=== PATIENT | female | born 1935 | race Caucasian/White ===

== ENCOUNTER → 2020-06-04 12:05 | Outpatient (CLI) | payer MEDICARE, SELFPAY ==
--- NOTE | 2020-06-04 12:12 | VDLE_ITS ---
Reason For Study: pain Procedure LEFT This is a venous duplex using B-mode, color GSV is normal. flow and spectral Doppler. CFV is compressible, spontaneous, phasic, Exam performed in department. competent, and demonstrates normal The exam was abbreviated due to the COVID 19 augmentation. protocol. FV is compressible, spontaneous, phasic, The exam was diagnostic. competent and demonstrates normal A preliminary report was called and/or faxed augmentation. to Dr. Lucas. POP V is compressible, spontaneous, phasic, competent and demonstrates normal augmentation. T/P Trunk is compressible. PTV is compressible. LT PerV is compressible. Interpretation Summary There is no evidence of left lower extremity deep vein thrombosis. Left great saphenous vein appears patent and compressible segmentally. Covid 19 protocol Ordering Physician: Ramandeep Lucas Performed By: Ciro Khanna RVT
== END ==
PROVIDERS: PCP Internal Medicine; Visit Provider Internal Medicine
DX: M79.605 Pain in left leg (principal); M79.89 Other specified soft tissue disorders
CPT/HCPCS: 93971

== ENCOUNTER 2021-11-24 11:31 | Emergency (ER) | payer MEDICARE, SELFPAY ==
[2021-11-24 11:33] VITALS: BP 140/91; PULSE 81; RESP 16; TEMP 36.9; O2SAT 100; BMI 25.0
[2021-11-24 11:43] VITALS: BP 175/93; PULSE 86
--- NOTE | 2021-11-24 12:10 | EX.ED.VIS.HA ---
HPI History of Present Illness Chief Complaint: Headache Informant: patient Onset/Context/Timing Onset: Today Context: Gradual Timing: Continuous Quality -Headache: Positive for Dull Location: Top of head, and occiput Worsened by: Nothing Relieved by: Aleve (slightly) Associated Symptoms/Injury Associated Symptoms: Positive for Blurred Vision; Negative for Fever, Nausea, Vomiting, Sore Throat, Sinus Pressure, Numbness, Tingling, Preceding Aura, Photophobia or Visual Loss Narrative Narrative: Patient presents with headache that began today. Patient states she woke up in the middle the night with a headache. Patient states she checked her blood pressure at home and it was elevated. Patient states it was 171/96 initially. Patient states that she checked it later and it was 180/111. Patient describes her pain as dull. Patient states it is over the top of her head and into the occiput. Patient states it radiates into her neck. Patient states she took Aleve earlier this morning and thinks it might of helped. Patient does admit to some blurred vision. Patient denies any nausea or vomiting. Patient denies any chest pain or shortness of breath. Patient denies any photophobia. [facility] Medical History (Updated 11/24/21 @ 13:[address] Daniel Wheeler DO) History of peripheral edema Home Medications amlodipine 2.5 mg tablet (Norvasc) 2.5 mg PO DAILY #10 tabs 11/24/21 [Rx Last Taken Unknown] estradiol 1 mg tablet 0.5 mg PO DAILY 11/24/21 [History Last Taken Unknown] furosemide 20 mg tablet 20 mg PO QODAY 11/24/21 [History Last Taken Unknown] gabapentin 100 mg capsule 100 mg PO QHS 11/24/21 [History Last Taken Unknown] nortriptyline 50 mg capsule 50 mg PO QHS 11/24/21 [History Last Taken Unknown] pravastatin 40 mg tablet 40 mg PO DAILY 11/24/21 [History Last Taken Unknown] Allergy/AdvReac Type Severity Reaction Status Date / Time No Known Allergies Allergy Verified 11/24/21 11:35 Surgical History Hx of appendectomy Hx of bilateral salpingo-oophorectomy Hx of hysterectomy Social History Smoking Status: Never smoker ROS ROS ED Constitutional Constitutional ED: Denies chills or fever(s) Eyes Eyes: Reports blurry vision; Denies diplopia ENT ENT ED: Denies rhinorrhea or sore throat Cardiovascular Cardiovascular: Denies chest pain or palpitations Respiratory/Chest Respiratory/Chest: Denies cough or dyspnea Gastrointestinal Gastrointestinal: Denies nausea or vomiting Genitourinary Genitourinary ED: Denies dysuria or hematuria Musculoskeletal Musculoskeletal: Reports neck pain; Denies back pain Integumentary Denies abscess or rash Neurologic Neurologic: Reports headache(s); Denies weakness Allergic/Immunologic Allergic/Immunologic ED: Denies mouth swelling or urticaria EXAM Physical Exam Const Vital Signs: 11/24/21 11:33 11/24/21 11:43 11/24/21 12:31 Temperature 98.4 F Temperature Source Temporal Pulse Rate 81 86 71 Respiratory Rate 16 24 H Blood Pressure 140/91 H 175/93 H 154/76 H Blood Pressure Mean 107 120 102 Pulse Ox 100 Oxygen Delivery Method Room Air 11/24/21 13:23 Temperature Temperature Source Pulse Rate 71 Respiratory Rate Blood Pressure 158/78 H Blood Pressure Mean 104 Pulse Ox Oxygen Delivery Method Positive well nourished and well developed General Appearance ED: well developed and NAD HEENT Reports moist mucous membranes Neck supple and no JVD Resp normal respiratory effort and clear to auscultation bilaterally Cardio regular rate, regular rhythm and no murmurs GI normal to inspection, nondistended, normoactive bowel sounds and non-tender Palpation: soft Extremity normal to inspection General Extremety ED: Negative for edema or tenderness General Extremity: Negative for edema Neuro oriented x3, CN's II-XII intact bilaterally and no sensory deficits noted Sensorium / Orientation: alert Motor Exam: strength 5/5 throughout Psych mental status grossly normal Skin no rashes or lesions noted MDM MDM MDM Narrative Medical decision making narrative: CT scan of the brain was obtained. There is no acute intracranial abnormality. There are chronic involutional changes noted. 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 This was interpreted by the radiologist and reviewed by myself. CBC shows a mild anemia with a hemoglobin of 11.2 and hematocrit 36.1. Comprehensive metabolic profile was within normal limits. Patient was ordered a dose of labetalol however, patient's blood pressure improved prior to administration of the labetalol. Patient's blood pressure remained stable. On reevaluation, patient's blood pressure is 158/78. Patient states her headache has improved with improvement of her blood pressure. Patient was given a prescription for low-dose Norvasc. Patient was instructed to follow-up with her primary care physician in 3 to 5 days for reevaluation. Patient understood and was agreeable with the plan. All questions were answered. Lab Data Attestation: I reviewed the patient's lab results. Labs: Laboratory Results - last 24 hr 11/24/21 11/24/21 12:25 12:25 WBC 6.4 RBC 4.29 Hgb 11.2 L Hct 36.1 L MCV 84.1 MCH 26.1 L MCHC 31.0 L RDW Std Deviation 49.0 H RDW Coeff of Sara 15.9 H Plt Count 336 MPV 9.1 Immature Gran % (Auto) 0.500 Neut % (Auto) 65.9 Lymph % (Auto) 24.6 Isabela % (Auto) 6.3 Eos % (Auto) 1.6 Baso % (Auto) 1.1 H Absolute Neuts (auto) 4.2 Absolute Lymphs (auto) 1.57 Nucleated RBC % 0 Sodium 138 Potassium 4.1 Chloride 104 Carbon Dioxide 30.0 Anion Gap 4 L BUN 13 Creatinine 0.82 Estim Creat Clear Calc 40.39 Est GFR (MDRD) Af Amer 86 Est GFR (MDRD) Non-Af 71 BUN/Creatinine Ratio 15.9 Glucose 95 Calcium 9.0 Total Bilirubin 0.30 AST 17 ALT 18 Alkaline Phosphatase 86 Total Protein 7.5 Albumin 3.4 Globulin 4.1 Albumin/Globulin Ratio 0.8 L Radiography Diagnostic Testing: Clinical Impression(s) from Imaging Studies Brain CT 11/24/21 12:14 IMPRESSION: Chronic involutional changes of the brain. 9.4 mm well-defined rounded lucency in the medial aspect of the left occipital lobe suggestive of an old infarct. Electronically Signed: Lucas Mcclelland MD at 12:53 EDT , Discharge Plan Triage Chief Complaint: Headache ED Provider: Daniel Wheeler Dx/Rx/DC Orders Clinical Impression: Headache, Hypertension Instructions: ED Headache Unspecified, ED Hypertension New Begin Treatment Prescriptions: New amlodipine [Norvasc] 2.5 mg tablet 2.5 mg PO DAILY Qty: 10 0RF No Action pravastatin 40 mg tablet 40 mg PO DAILY Label Comments: take 1 tablet by mouth at bedtime estradiol 1 mg tablet 0.5 mg PO DAILY Label Comments: take 1/2 tablet by mouth once daily - MAY INCREASE TO 1 TABLET DAILY IF SYMPTOMS DO NOT IMPROVE furosemide 20 mg tablet 20 mg PO QODAY Label Comments: take 1 tablet by mouth every other day gabapentin 100 mg capsule 100 mg PO QHS Label Comments: take 1 capsule by mouth at bedtime nortriptyline 50 mg capsule 50 mg PO QHS Label Comments: take 1 capsule by mouth once daily at bedtime Primary Care Provider: Ramandeep Lucas Referrals: Ramandeep Lucas MD [Primary Care Provider] - 3-5 Days Disposition Disposition: Home, Self Care
--- NOTE | 2021-11-24 12:14 | CT_ITS ---
STUDY: CT BRAIN WITHOUT CONTRAST REASON FOR EXAM: Female, 86 years old. Headache RADIATION DOSAGE (If Supplied By Facility): CTDIvol = ( 44.99 ) mGy, DLP = ( 762.36 ) mGycm TECHNIQUE: Transaxial CT imaging of the brain was performed without administration of intravenous contrast material. Individualized dose optimization techniques were used for this CT. COMPARISON: No relevant priors. FINDINGS: Normal soft tissue structures. Normal calvarium. There is mild cerebral atrophy with widening of the extra-axial spaces and ventricular dilatation. There are areas of decreased attenuation within the white matter tracts of the supratentorial brain, consistent with microvascular disease changes. Normal basal ganglia and thalami. Normal brainstem. There is a 9.4 mm well-defined rounded lucency in the medial aspect of the left occipital lobe suggestive of old infarct. There is mild cerebellar atrophy. There is no intracranial hemorrhage. There are no findings of an acute ischemic infarction. Atherosclerotic calcification of the cavernous portions of the internal carotid arteries bilaterally. Normal visualized paranasal sinuses. CT/Brain/Head without Contrast IMPRESSION: Chronic involutional changes of the brain. 9.4 mm well-defined rounded lucency in the medial aspect of the left occipital lobe suggestive of an old infarct. Electronically Signed: Lucas Mcclelland MD at 12:53 EDT ,
[2021-11-24 12:31] VITALS: BP 154/76; PULSE 71; RESP 24
[2021-11-24 12:37] LABS: Absolute Lymphocyte Count 1.57 X10^3/uL (0.83-4.51); Absolute Neutrophil Count 4.2 X10^3/uL (2.0-7.7); Basophil# 0.07 X10^3/uL; Basophil% 1.1 % (0-1); Eosinophils% 1.6 % (0-5); Hematocrit 36.1 % (37-47); Hemoglobin 11.2 g/dL (12.0-15.0); Lymphocyte # 1.57 X10^3/ul (0.83-4.51); Lymphocyte % 24.6 % (19-41); Mean Corpuscular Hgb 26.1 pg (27.0-32.0); Mean Corpuscular Volume 84.1 fL (81-99); Mean Platelet Vol. 9.1 fl (6.2-12.0); Monocyte% 6.3 % (0-10); NRBC Flagged by Analyzer 0 % (0-5); Neutrophil # 4.21 X10^3/uL (2.7-7.7); Neutrophil % 65.9 % (47-70); Platelet Count 336 K/mm3 (150-450); RBC Distribution Width CV 15.9 % (11.6-14.6); Red Blood Count 4.29 M/mm3 (4.2-5.4); White Blood Count 6.4 K/mm3 (4.4-11.0)
[2021-11-24 12:49] LABS: ALB/GLOB Ratio 0.8 RATIO (0.9-2.4); AST(SGOT) 17 U/L (15-37); Alanine Aminotransfer ALT/SGPT 18 U/L (13-56); Albumin, Serum 3.4 g/dL (3.2-5.0); Alkaline Phosphatase 86 U/L (45-117); Anion Gap 4 (5-15); BUN 13 mg/dL (7-18); BUN/Creat Ratio 15.9 RATIO (10-20); Chloride 104 mmol/L (98-107); Creatinine, Serum 0.82 mg/dL (0.55-1.02); EST Glomerular Filtration Rate 71 mL/min (>60); Est Glom Filt Rate - Afr Amer 86 mL/min (>60); Estimated Creatinine Clearance 40.39 ml/min; Globulin 4.1 g/dL (2.2-4.2); Glucose 95 mg/dL (74-106); Potassium 4.1 mmol/L (3.5-5.1); Protein, Total 7.5 g/dL (6.4-8.2); Sodium Level 138 mmol/L (136-145)
[2021-11-24 13:23] VITALS: BP 158/78; PULSE 71
[2021-11-24 13:47] VITALS: BP 160/73; PULSE 71
== END 2021-11-24 13:54 | disposition home or self-care (01) ==
PROVIDERS: Emergency Provider Emergency Medicine; PCP Internal Medicine; Visit Provider Emergency Medicine
DX: R51.9 Headache, unspecified (principal); D64.9 Anemia, unspecified; I10 Essential (primary) hypertension
CPT/HCPCS: 70450; 80053; 85025; 99284

== ENCOUNTER 2024-09-28 20:33 | Emergency (ER) | payer MEDICARE, SELFPAY ==
[2024-09-28 20:35] VITALS: BP 155/66; PULSE 82; RESP 18; TEMP 37; O2SAT 100
[2024-09-28 20:54] VITALS: BMI 24.3
--- OUTSIDE RECORDS SUMMARY | 2024-09-28 21:10 | XMS RPT_ITS | CCD ---
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 Name Role Phone Ramandeep Alvarez MD Primary Care Provider [phone] FANNING, LOY A Referring Unavailable GANTA, RAMANDEEP Primary Care Unavailable PROVIDER, UNKNOWN Referring Unavailable GANTA, RAMANDEEP Primary Care Unavailable Atifta Ramandeep DURBIN Primary Care Provider [phone] Kinjal Carlton PA-C Unavailable Older BELLMAN.SANTO, Breanna Unavailable Molly Rudolph PA-C Unavailable [phone] GANTA, RAMANDEEP Primary Care Unavailable FANNING, LOY A Referring Unavailable GANTA, RAMANDEEP Primary Care Unavailable BHARATHI CHAVEZA Referring Unavailable GANTA, RAMANDEEP Primary Care Unavailable ANGÉLICA PULIDO Referring Unavailable GANTA, RAMANDEEP Attending Unavailable GANTA, RAMANDEEP Primary Care Unavailable FANNING, LOY A Referring Unavailable GANTA, RAMANDEEP Primary Care Unavailable FANNING, LOY A Attending Unavailable FANNING, LOY A Admitting Unavailable GANTA, RAMANDEEP Primary Care Unavailable GANTA, RAMANDEEP Attending Unavailable GANTA, RAMANDEEP Primary Care Unavailable ELIZABETH SMITH Referring Unavailable GANTA, RAMANDEEP Primary Care Unavailable Riley Gregory Attending Unavailable GANTA, RAMANDEEP Primary Care Unavailable MASCILANEY Referring Unavailable SUSAN CARRERO Attending Unavailable GANTA, RAMANDEEP Primary Care Unavailable MASCLANEY Flores Referring Unavailable MASCLANEY Flores Attending Unavailable GANTA, RAMANDEEP Primary Care Unavailable FANNING, LOY A Attending Unavailable GANTA, RAMANDEEP Primary Care Unavailable CHANEL PASCUAL Referring Unavailable GANTA, RAMANDEEP Primary Care Unavailable GANTA, RAMANDEEP Primary Care Unavailable ELIZABETH SMITH Referring Unavailable GANTA, RAMANDEEP Primary Care Unavailable MO MEDINA Referring Unavailable GANTA, RAAMNDEEP Primary Care Unavailable MASCI, LANEY A Referring Unavailable GANTA, RAMANDEEP Primary Care Unavailable FANNING, LOY A Referring Unavailable MASCI, LANEY A Attending Unavailable GANTA, RAMANDEEP Primary Care Unavailable FANNING, LOY A Referring Unavailable JILLIAN DELGADO Attending Unavailable GANTA, RAMANDEEP Primary Care Unavailable SABA, KISHA A Referring Unavailable GANTA, RAMANDEEP Primary Care Unavailable CARRERO, SUSAN Referring Unavailable GANTA, RAMANDEEP Primary Care Unavailable MASCI, LANEY A Referring Unavailable GANTA, RAMANDEEP Primary Care Unavailable MASCI, LANEY A Referring Unavailable GANTA, RAMANDEEP Primary Care Unavailable SELF Referring Unavailable FANNING, LOY A Attending Unavailable GANTA, RAMANDEEP Primary Care Unavailable PULIDO, ANGÉLICA Referring Unavailable GANTA, RAMANDEEP Primary Care Unavailable PULIDO, ANGÉLICA Attending Unavailable GANTA, RAMANDEEP Primary Care Unavailable PULIDO, ANGÉLICA Referring Unavailable FANNING, LOY A Attending Unavailable GANTA, RAMANDEEP Primary Care Unavailable PULIDO, ANGÉLICA Referring Unavailable Kinjal Carlton PA-C Unavailable [phone] Molly Rudolph PA-C Unavailable Allergies Allergy Classification Reported Allergen(s) Allergy Type Date of Onset Reaction(s) Facility Acetaminophen / HYDROcodone (1 source) Acetaminophen / HYDROcodone Drug Allergy 04-27-2009 [facility] Work Phone: (20 sources) Acetaminophen / HYDROcodone; Translations: [HYDROCODONE-ACETA MINOPHEN] Drug Allergy 04-27-2009 [facility] Work Phone: Medications Current Medications Medication Drug Class(es) Dates Sig (Normalized) Sig (Original) >Zippered Compression Knee High 30-40 mm custom (20 sources) Start: 09-21-2018 >Zippered Compression Knee High 30-40 mm custom CUSTOM MEASURE FOR KNEE HIGH HO COMPRESSION STOCKINGS, 30-40 MM, WITH ZIPPERS PLEASE. IF UNABLE, PLEASE REFER TO [facility]. DX: EDEMA 1 Each 09/21/2018 Active Start: 09-21-2018 >Zippered Comp ression Knee High 30-40 mm custom CUSTOM MEASURE FOR KNEE HIGH HO COMPRESSION STOCKINGS, 30-40 MM, WITH ZIPPERS PLEASE. IF UNABLE, PLEASE REFER TO [facility]. DX: EDEMA 1 Each 0 09/21/2018 Active Comment on above: CUSTOM MEASURE FOR Aris PERALTA HIGH HO COMPRESSION STOCKINGS, 30-40 MM, WITH ZIPPERS PLEASE. IF UNABLE, PLEASE REFER TO [facility]. DX: EDEMA acetaminophen 325 mg / HYDROcodone bitartrate 5 mg oral tablet (2 sources) Opioid Agonist Start: 12-18-19 End: 12-21-19 take 1 tablet by mouth every eight hours as needed for pain HYDROcodone-acetam inophen (NORCO) 5-325 mg per tablet Indications: Post-op pain Take 1 tablet by mouth every 8 hours as needed for pain for up to 3 days. 5 tablet 12/18/2023 12/21/2023 Active amLODIPine 2.5 mg oral tablet (20 sources) Dihydropyridine Calcium Channel Raymundo Start: 11-29-19 take 1 tablet by mouth once daily amLODIPine (NORVASC) 2.5 mg tablet Take 1 tablet by mouth once daily. 90 tablet 3 11/29/2023 Active Start: 11-30-2021 End: 11-25-2023 take 1 tablet by mouth once daily amLODIPine (NORVASC) 2.5 mg tablet Take 1 tablet by mouth once daily. 90 tablet 3 08/24/2022 11/25/2023 Discontinued Comment on above: Take 1 tablet by andrzej once daily. anastrozole 1 mg oral tablet (13 sources) Aromatase Inhibitor Start: take 1 tablet by mouth once daily anastrozole (ARIMIDEX) 1 mg tablet Take 1 tablet by mouth once daily. 90 tablet 3 01/02/2024 Active aspirin 81 mg oral tablet (20 sources) Platelet Aggregation Inhibitor, Nonsteroidal Anti-inflammatory Drug take 1 tablet by mouth once daily Aspirin 81 mg Tab Take 81 mg by mouth once daily. Active Comment on above: Take 81 mg by mouth once daily. Calcium (20 sources) Phosphate Binder, Calcium Start: CALCIUM 500 MG TAB Take 1500mg daily when she remebers 0 0 09/24/2008 Active Comment on above: Take 1500mg daily wh en she remebers cephalexin 500 mg oral capsule (3 sources) Cephalosporin Antibacterial Start: End: take 1 capsule by mouth three times daily cephALEXin (KEFLEX) 500 mg capsule Take 1 capsule by mouth three times a day for 10 days. 30 capsule 12/18/2023 12/28/2023 Active cholecalciferol 0.05 mg oral tablet (20 sources) Vitamin D cholecalciferol (VITAMIN D3) 50 mcg (2,000 unit) tablet Take by mouth once daily. Active Comment on above: Take by mouth once d aily. ferrous sulfate 325 mg oral tablet (6 sources) Start: End: take 1 tablet by mouth every other day ferrous sulfate 325 mg (65 mg iron) tablet Take 1 tablet by mouth every other day. 30 tablet 0 08/10/2023 09/09/2023 Active furosemide 20 mg oral tablet (20 sources) Loop Diuretic Start: End: take 1 tablet by mouth every other day furosemide (LASIX) 20 mg tablet Indications: Diastolic dysfunction take 1 tablet by mouth every other day 45 tablet 3 09/30/2022 Active Start: 04-09-2021 take 1 tablet by andrzej th every other day furosemide (LASIX) 20 mg tablet Indications: Diastolic dysfunction Take 1 tablet by mouth every other day. 45 tablet 0 04/09/2021 Active Comment on above: Take 1 tablet by andrzej th every other day. take 1 tablet by andrzej th every other day gabapentin 100 mg oral capsule (20 sources) Anti-epileptic Agent Start: 08-26-2024 End: 02-22-2025 take 1 capsule by mouth once daily at bedtime gabapentin (NEURONTIN) 100 mg capsule Indications: Post herpetic neuralgia Take 1 capsule by mouth daily at bedtime for 180 days. 90 capsule 1 08/26/2024 02/22/2025 Active Start: 12-11-2020 End: 08-23-2024 take 1 capsule by mouth once daily at bedtime gabapentin (NEURONTIN) 100 mg capsule Indications: Post herpetic neuralgia Take 1 capsule by mouth daily at bedtime for 180 days. 90 capsule 1 07/21/2023 02/05/2024 Discontinued Comment on above: Take 1 capsule by mo uth daily at bedtime. Take 1 capsule by mo uth daily at bedtime for 180 days. losartan potassium 25 mg oral tablet (20 sources) Angiotensin 2 Receptor Raymundo Start: 11-29-2023 take 1 tablet by mouth once daily losartan (COZAAR) 25 mg tablet Take 1 tablet by mouth once daily. 90 tablet 3 11/29/2023 Active Start: 12-27-2021 End: 11-25-2023 take 1 tablet by mouth once daily losartan (COZAAR) 25 mg tablet Take 1 tablet by mouth once daily. 90 tablet 3 01/05/2023 11/25/2023 Discontinued Start: 11-30-2021 take 1 tablet by andrzej th once daily losartan (COZAAR) 25 mg tablet Take 1 tablet by mouth once daily. 30 tablet 5 11/30/2021 Active Comment on above: Take 1 tablet by andrzej th once daily. take 1 tablet by andrzej th once daily methylPREDNISolone (6 sources) Corticosteroid Start: 12-11-2023 End: 12-17-2023 methylPREDNISolone (MEDROL, KELIN,) 4 mg Dose-Pack Follow dosing instructions, take with food. 21 tablet 12/11/2023 12/17/2023 Active Start: 07-08-2022 End: 07-14-2022 methylPREDNISolone (MEDROL, KELIN,) 4 mg Dose-Pack Follow dosing instructions, take with food. 21 tablet 07/08/2022 07/14/2022 Start: 07-08-2022 End: 07-14-2022 methylPREDNISolone (MEDROL, KELIN,) 4 mg Dose-Pack Follow dosing instructions, take with food. 21 tablet 0 07/08/2022 07/14/2022 Active Comment on above: Follow dosing instru ctions, take with food. multivitamin tablet (20 sources) Start: 07-03-19 16 take 1 tablet by mouth once daily multivitamin tablet Take 1 tablet by mouth once daily. 0 07/03/2015 Active Comment on above: Take 1 tablet by andrzej th once daily. nortriptyline 50 mg oral capsule (20 sources) Tricyclic Antidepressant Start: 11-29-19 24 take 1 capsule by mouth once daily at bedtime nortriptyline (PAMELOR) 50 mg capsule Indications: Insomnia, unspecified type TAKE ONE CAPSULE BY MOUTH EVERY DAY AT BEDTIME 90 capsule 3 11/29/2023 Active Start: 04-09-2021 End: 11-25-2023 take 1 capsule by mouth once daily at bedtime nortriptyline (PAMELOR) 50 mg capsule Indications: Insomnia, unspecified type TAKE ONE CAPSULE BY MOUTH EVERY DAY AT BEDTIME 90 capsule 3 07/11/2023 11/25/2023 Discontinued Comment on above: TAKE ONE CAPSULE BY MOUTH EVERY DAY AT BEDTIME potassium chloride 10 meq extended release oral tablet (20 sources) Start: End: take 1 tablet by mouth once daily at breakfast potassium chloride (K-TAB) 10 mEq tablet Indications: Diastolic dysfunction Take 1 tablet by mouth daily with breakfast. On days she takes lasix 90 tablet 01/05/2023 Active Comment on above: Take 1 tablet by andrzej th daily with breakfast. On days she takes lasix pravastatin sodium 40 mg oral tablet (20 sources) HMG-CoA Reductase Inhibitor Start: take 1 tablet by mouth once daily at bedtime pravastatin (PRAVACHOL) 40 mg tablet Indications: Pure hypercholesterolemia Take 1 tablet by mouth daily at bedtime. 90 tablet 3 11/29/2023 Active Start: 06-04-2020 End: 11-25-2023 take 1 tablet by mouth once daily at bedtime pravastatin (PRAVACHOL) 40 mg tablet Indications: Pure hypercholesterolemia Take 1 tablet by mouth daily at bedtime. 90 tablet 3 07/11/2023 11/25/2023 Discontinued Comment on above: Take 1 tablet by andrzej th daily at bedtime. triamcinolone acetonide 1 mg/ml topical cream (1 source) Corticosteroid Start: End: triamcinolone acetonide (KENALOG) 0.1 % cream Indications: Rash and nonspecific skin eruption Apply 1 application to affected area three times a day for 14 days. Apply to affected area. On hand and neck 15 g 1 09/15/2023 09/29/2023 Active valACYclovir 1000 mg oral tablet (1 source) Herpesvirus Nucleoside Analog DNA Polymerase Inhibitor, Herpes Simplex Virus Nucleoside Analog DNA Polymerase Inhibitor, Herpes Zoster Virus Nucleoside Analog DNA Polymerase Inhibitor Start: End: take 1 tablet by mouth three times daily at mealtime valACYclovir (VALTREX) 1 gram Indications: Feared condition not demonstrated , History of shingles Take 1 tablet by mouth three times daily for 7 days. Take with food 21 tablet 0 09/30/2022 10/07/2022 Active Comment on above: Take 1 tablet by andrzej th three times daily for 7 days. Take with food Completed/Discontinued Medications Medication Drug Class(es) Dates Sig (Normalized) Sig (Original) acetaminophen 325 mg oral tablet (15 sources) Start: 08-22-2024 End: 08-22-2024 take 1 dose by mouth once, then take 4000 mg by mouth once daily 650 mg, ORAL, ONCE, 1 dose, On [facility] 08/22/24 at 1330, No more than 4000 mg of acetaminophen should be given per day (FROM ALL SOURCES) Start: 12-18-2023 End: 12-18-2023 take 1 dose by mouth once 1,000 mg, ORAL, PRE-OP ONCE, 1 dose, On Mon12/18/23 at 0730, Preprocedure take 2 tablets by [facility] every six hours as needed acetaminophen (TYLENOL) 325 mg tablet Take 650 mg by mouth every 6 hours as needed. Active calcium chloride 0.0014 meq/ml / potassium chloride 0.004 meq/ml / sodium chloride 0.103 meq/ml / sodium lactate 0.028 meq/ml injectable solution (2 sources) Start: 12-18-2023 End: 12-19-2023 take 75 mL intravenously every hour 75 mL/hr, INTRAVENOUS, CONTINUOUS, Starting on Mon12/18/23 at 1030, Until Mon12/19/23 at 0303, Recovery or Phase I (only) ciclopirox 80 mg/ml topical solution (10 sources) Start: 03-22-2022 End: 01-05-2023 Ciclopirox (LOPROX) 8 % solution APPLY TO NAILS DAILY AND REMOVE WITH ALCOHOL WEEKLY 03/22/2022 01/05/2023 Discontinued Comment on above: APPLY TO NAILS DAILY AND REMOVE WITH ALCOHOL WEEKLY diphenhydrAMINE (1 source) Histamine-1 Receptor Antagonist Start: 12-18-2023 End: 12-19-2023 12.5 mg, INTRAVENOUS, NEEDED, 1 dose, Starting on Mon12/18/23 at 1029, Until Mon12/19/23 at 0303, itching/rash, Nausea/Vomiting - First Line - Parenteral, Recovery or Phase I (only) efinaconazole 100 mg/ml topical solution (20 sources) Azole Antifungal Start: 05-24-2022 End: 10-19-2023 JUBLIA 10 % gunjan 05/24/2022 10/19/2023 Discontinued (Course of therapy completed) EPINEPHrine 0.005 mg/ml / lidocaine hydrochloride 5 mg/ml injectable solution (3 sources) Antiarrhythmic, alpha-Adrenergi c Agonist, beta-Adrenergic Agonist, Catecholamine, Amide Local Anesthetic Start: 11-20-2023 End: 11-20-2023 INTRADERMAL, X (OR/PROCEDURE) PRN, Starting on Mon11/20/23 at 1400, Until Mon11/20/23 at 1400, Intraprocedure Start: 10-04-2023 End: 10-04-2023 lidocaine 1%-EPINEPHrine 1:1 00,000 injection estradiol 1 mg oral tablet (20 sources) Estrogen Start: 11-24-2021 End: 07-04-2024 take 0.5 mg by mouth once daily estradiol (ESTRACE) 1 mg tablet Take 0.5 mg by mouth once daily. 11/24/2021 07/04/2024 Discontinued Start: 04-09-2021 End: 10-19-2023 estradiol (ESTRACE) 1 mg tab let Indications: Hot flashes Take 1 tablet by mouth once daily. Begin with half a pill, if symptoms dont get better take 1 pill 90 tablet 3 06/18/2021 08/23/2022 Discontinued Comment on above: Take 1 tablet by andrzej th once daily. Begin with half a pill, if symptoms dont get better take 1 pill 1 ml fentaNYL 0.05 mg/ml injection (1 source) Opioid Agonist Start: 12-18-2023 End: 12-19-2023 50 mcg, INTRAVENOUS, EVERY 5 MINUTES NEEDED, 2 doses, Starting on Mon12/18/23 at 1029, Until Mon12/19/23 at 0303, FIRST LINE THERAPY for moderate or severe pain, Hold for respiratory rate less than 14, Recovery or Phase I (only) 0.5 ml HYDROmorphone hydrochloride 1 mg/ml prefilled syringe (1 source) Opioid Agonist Start: 12-18-2023 End: 12-19-2023 0.2 mg, INTRAVENOUS, EVERY 10 MINUTES NEEDED, 4 doses, Starting on Mon12/18/23 at 1029, Until Mon12/19/23 at 0303, SECOND LINE THERAPY for moderate or severe pain, Hold for respiratory rate less than 14 Caution: IV hydromorphone is approximately 8 times MORE POTENT than IV morphine. For example, hydromorphone 1mg IV = morphine 8mg IV, Recovery or Phase I (only) iv contrast (will be provided with radiology test) (11 sources) Start: 11-07-2023 End: 11-08-2023 iv contrast (will be provided with radiology test) Indications: Abnormal MRI, breast MRI LT Breast Bx Inject, intravenously, once for 1 dose. No IV access, insert saline lock prior to the beginning of sedation, infusion, injection of imaging exam. Discontinue saline lock post exam. If Pt has a central line or IVAD, may access for administration according to line specific nursing protocol. Once exam is complete flush line and de-access according to line specific nursing protocol in the MR contrast administration guidelines link 1 Each 0 11/07/2023 11/08/2023 Start: 11-07-2023 End: 11-08-2023 iv contrast (will be provide d with radiology test) Indications: Abnormal MRI, breast MRI LT Breast Bx Inject, intravenously, once for 1 dose. No IV access, insert saline lock prior to the beginning of sedation, infusion, injection of imaging exam. Discontinue saline lock post exam. If Pt has a central line or IVAD, may access for administration according to line specific nursing protocol. Once exam is complete flush line and de-access according to line specific nursing protocol in the MR contrast administration guidelines link 1 Each 0 11/07/2023 11/08/2023 Active Start: 10-12-2023 End: 10-13-2023 iv contrast (will be provide d with radiology test) MRI Breast EMELIA Inject, intravenously, once for 1 dose. No IV access, insert saline lock prior to the beginning of sedation, infusion, injection of imaging exam. Discontinue saline lock post exam. If Pt has a central line or IVAD, may access for administration according to line specific nursing protocol. Once exam is complete flush line and de-access according to line specific nursing protocol in the MR contrast administration guidelines link 1 Each 0 10/12/2023 10/13/2023 Active Start: 07-08-2021 End: 07-09-2021 iv contrast (will be provide d with radiology test) Indications: Back pain, unspecified back location, unspecified back pain laterality, unspecified chronicity , Chest pain, unspecified type , Elevated d-dimer CT Chest PE -Inject, intravenously, once for 1 dose.No IV access, insert saline lock prior to the beginning of sedation, infusion, injection of imaging exam. Discontinue saline lock post exam. If Pt. has a central line or IVAD, may access for administration according to line specific nursing protocol. Once exam is complete flush line and de-access according to line specific nursing protocol in the CT contrast administration guidelines link. 1 Each 0 07/08/2021 07/09/2021 Start: 07-08-2021 End: 07-09-2021 iv contrast (will be provide d with radiology test) Indications: Back pain, unspecified back location, unspecified back pain laterality, unspecified chronicity , Chest pain, unspecified type , Elevated d-dimer CT Chest PE -Inject, intravenously, once for 1 dose.No IV access, insert saline lock prior to the beginning of sedation, infusion, injection of imaging exam. Discontinue saline lock post exam. If Pt. has a central line or IVAD, may access for administration according to line specific nursing protocol. Once exam is complete flush line and de-access according to line specific nursing protocol in the CT contrast administration guidelines link. 1 Each 0 07/08/2021 07/09/2021 Active Comment on above: CT Chest PE -Inject, intravenously, once for 1 dose.No IV access, insert saline lock prior to the beginning of sedation, infusion, injection of imaging exam. Discontinue saline lock post exam. If Pt. has a central line or IVAD, may access for administration according to line specific nursing protocol. Once exam is complete flush line and de-access according to line specific nursing protocol in the CT contrast administration guidelines link. 10 ml lidocaine hydrochloride 10 mg/ml injection (5 sources) Antiarrhythmic, Amide Local Anesthetic Start: 12-13-2023 End: 12-13-2023 SUBCUTANEOUS, X (OR/PROCEDURE) PRN, Starting on Mon12/13/23 at 1337, Until Mon12/13/23 at 1337, Intraprocedure Start: 11-20-2023 End: 11-20-2023 SUBCUTANEOUS, X (OR/PROCEDUR E) PRN, Starting on Mon11/20/23 at 1359, Until Mon11/20/23 at 1359, Intraprocedure Start: 11-06-2023 End: 11-06-2023 lidocaine (PF) 10 mg/mL (1 % ) injection (XYLOCAINE) Start: 10-04-2023 End: 10-04-2023 lidocaine (PF) 10 mg/mL (1 % ) injection (XYLOCAINE) naproxen sodium 220 mg oral tablet (20 sources) Nonsteroidal Anti-inflammatory Drug Start: 09-24-2008 End: 07-04-2024 naproxen sodium(ALEVE 220 MG TAB) Take one(1) tablet twice daily.as necessary 0 0 09/24/2008 07/04/2024 Discontinued (Other) Comment on above: Take one(1) tablet t wice daily.as necessary nystatin 100 unt/mg / triamcinolone acetonide 0.001 mg/mg topical ointment (20 sources) Polyene Antifungal, Corticosteroid Start: 09-15-2023 End: 12-08-2023 nystatin-triamcinol one (MYCOLOG) ointment Indications: Rash and nonspecific skin eruption Apply sparingly to red areas both groins twice daily for irritation/infectio n. 15 g 1 09/15/2023 12/08/2023 Discontinued 2 ml ondansetron 2 mg/ml injection (1 source) Serotonin-3 Receptor Antagonist Start: 12-18-2023 End: 12-18-2023 4 mg, INTRAVENOUS, ONCE, 1 dose, On Mon12/18/23 at 1230, Give IV push over 2 minutes Start: 12-18-2023 End: 12-18-2023 4 mg, INTRAVENOUS, ONCE, 1 d ose, On Mon12/18/23 at 1230, Give IV push over 2 minutes oxyCODONE hydrochloride 5 mg oral tablet (1 source) Opioid Agonist Start: 12-18-2023 End: 12-18-2023 5 mg, ORAL, POST-OP PRN, 1 dose, Starting on Mon12/18/23 at 1029, Until Mon12/18/23 at 1140, Moderate Pain (4-6) - Enteral, Recovery or Phase I (only) zoledronic acid 3 mg in NaCl 0.9% 100 mL (ZOMETA) (1 source) Start: 08-22-2024 End: 08-22-2024 3 mg, INTRAVENOUS, Administer over 15 Minutes, ONCE, 1 dose, On [place] 08/22/24 at 1400, Hazardous Potential Reproductive Risk Drug: Use appropriate PPE. Refrigerate. Exp: (24 HR) Problems Active Problems Problem Classification Problem Date Documented Date Episodic/Chronic Administrative/social admission (1 source) Worried well; Translations: [Person with feared health complaint in whom no diagnosis is made] Episodic Allergic reactions (2 sources) Inflammatory dermatosis; Translations: [Dermatitis, unspecified] Episodic Anxiety disorders (20 sources) Anxiety state; Translations: [Generalized anxiety disorder] 03-13-2018 Chronic Cancer of breast (20 sources) Malignant neoplasm of upper-outer quadrant of female breast; Translations: [Malignant neoplasm of upper-outer quadrant of right female breast] Onset: 10-21-2023 10-12-2023 Chronic Chronic kidney disease (15 sources) Chronic kidney disease stage 3A ; Translations: [Stage 3a chronic kidney disease (HCC)] Onset: 01-09-2024 01-09-2024 Chronic Deficiency and other anemia (20 sources) Iron deficiency anemia; Translations: [Iron deficiency anemia, unspecified] 05-29-2017 Episodic Deficiency and other anemia (1 source) Anemia; Translations: [Anemia, unspecified] 11-08-2023 Episodic Disorders of lipid metabolism (20 sources) Pure hypercholesterolemia; Translations: [Pure hypercholesterolemia, unspecified] Chronic Esophageal disorders (20 sources) Gastroesophageal reflux disease; Translations: [Gastro-esophageal reflux disease without esophagitis] Onset: 05-02-2005 05-02-2005 Chronic Essential hypertension (20 sources) Essential hypertension; Translations: [Essential (primary) hypertension] Onset: 04-14-2022 Chronic Heart valve disorders (15 sources) Aortic stenosis, non-rheumatic ; Translations: [Nonrheumatic aortic (valve) stenosis] Onset: 01-09-2024 01-09-2024 Chronic Nonspecific chest pain (2 sources) Chest pain; Translations: [Chest pain, unspecified] Episodic Other and ill-defined heart disease (18 sources) Diastolic dysfunction; Translations: [Other ill-defined heart diseases] Onset: 01-09-2024 Chronic Other connective tissue disease (20 sources) Pain in limb; Translations: [Pain in unspecified limb] 04-29-2005 Episodic Other connective tissue disease (1 source) Swelling of lower limb; Translations: [Other specified soft tissue disorders] Episodic Other diseases of veins and lymphatics (1 source) Peripheral venous insufficiency; Translations: [Venous insufficiency (chronic) (peripheral)] Episodic Other infections; including parasitic (1 source) History of herpes zoster; Translations: [Personal history of other infectious and parasitic diseases] Episodic Other nervous system disorders (20 sources) Compression injury of nerve; 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, unspecified] Onset: 01-31-2018 01-31-2018 Chronic Other nervous system disorders (1 source) Postoperative pain ; Translations: [Other acute postprocedural pain] 12-18-2023 Episodic Other non-traumatic joint disorders (4 sources) Hip pain; Translations: [Pain in left hip] Episodic Other skin disorders (1 source) Eruption; Translations: [Rash and other nonspecific skin eruption] 09-15-2023 Episodic Kathy-; endo-; and myocarditis; cardiomyopathy (except that caused by tuberculosis or sexually transmitted disease) (18 sources) Heart valve disorder; Translations: [Endocarditis, valve unspecified] Onset: 12-15-2023 12-15-2023 Chronic Peripheral and visceral atherosclerosis (15 sources) Atherosclerosis of aorta; Translations: [Atherosclerosis of aorta] Onset: 01-09-2024 01-09-2024 Chronic Residual codes; unclassified (5 sources) Insomnia; Translations: [Insomnia, unspecified] Episodic Residual codes; unclassified (2 sources) Postmenopausal state; Translations: [Asymptomatic menopausal state] 07-11-2023 Episodic Spondylosis; intervertebral disc disorders; other back problems (2 sources) Backache; Translations: [Dorsalgia, unspecified] Episodic Thyroid disorders (20 sources) Non-toxic multinodular goiter; Translations: [Nontoxic multinodular goiter] Onset: 10-30-2008 10-30-2008 Chronic Past or Other Problems Problem Classification Problem Date Documented Date Episodic/Chronic Abdominal pain (20 sources) Right upper quadrant pain; Translations: [Right upper quadrant pain] Onset: 07-16-2007 07-16-2007 Episodic Biliary tract disease (20 sources) Chronic cholecystitis; Translations: [Chronic cholecystitis] Onset: 08-13-2007 08-13-2007 Episodic Deficiency and other anemia (1 source) Anemia, unspecified; Translations: [Anemia, unspecified type] Onset: 11-08-2023 Episodic Gastritis and duodenitis (20 sources) Gastritis; Translations: [Other gastritis without bleeding] Onset: 07-27-2007 07-27-2007 Episodic Genitourinary symptoms and ill-defined conditions (20 sources) Dysuria; Translations: [Dysuria] Onset: 08-16-2007 Resolved: 06-27-2014 06-27-2014 Episodic Heart valve disorders (20 sources) Heart murmur; Translations: [Cardiac murmur, unspecified] Onset: 08-25-2016 12-08-2023 Episodic Menopausal disorders (20 sources) Menopausal flushing; Translations: [Menopausal and female climacteric states] Onset: 06-21-2011 Resolved: 06-27-2014 06-27-2014 Chronic Nonmalignant breast conditions (8 sources) Breast problem; Translations: [Disorder of breast, unspecified] Onset: 10-27-2023 10-27-2023 Episodic Other and unspecified benign neoplasm (20 sources) Lipoma of skin and subcutaneous tissue (excluding face); Translations: [Benign lipomatous neoplasm of skin and subcutaneous tissue of other sites] Onset: 05-02-2005 05-02-2005 Episodic Other bone disease and musculoskeletal deformities (20 sources) Disorder of skeletal system; Translations: [Disorder of bone, unspecified] Onset: 05-02-2005 01-04-2016 Episodic Other bone disease and musculoskeletal deformities (20 sources) Osteopenia; Translations: [Other specified disorders of bone density and structure, unspecified site] Onset: 05-02-2005 12-08-2023 Episodic Other circulatory disease (20 sources) History of cerebrovascular accident; Translations: [Personal history of transient ischemic attack (TIA), and cerebral infarction without residual deficits] Onset: 12-08-2023 12-08-2023 Episodic Other non-traumatic joint disorders (20 sources) Pain of left hip joint; Translations: [Pain in left hip] Onset: 07-19-2022 Episodic Other screening for suspected conditions (not mental disorders or infectious disease) (20 sources) Patient encounter status; Translations: [Encounter for screening mammogram for malignant neoplasm of breast] Onset: 10-04-2023 Episodic Residual codes; unclassified (20 sources) Flushing; Translations: [Flushing] Onset: 09-21-2018 Episodic Residual codes; unclassified (3 sources) Estrogen receptor positive status [ER+]; Translations: [Malignant neoplasm of upper-outer quadrant of right breast in female, estrogen receptor positive (HCC)] Onset: 10-21-2023 Episodic Urinary tract infections (20 sources) Urinary tract infectious disease; Translations: [Urinary tract infection, site not specified] Resolved: 12-30-2015 12-30-2015 Episodic Viral infection (20 sources) Postherpetic neuralgia; Translations: [Other postherpetic nervous system involvement] Onset: 02-06-2012 Resolved: 06-27-2014 02-06-2012 Episodic Results Test Name Value Interpretation Reference Range Facility Basic metabolic 2000 panelon 08-22-2024 Anion gap [Moles/Vol] 13 mmol/L Normal 8-15 [facility] Comment on above: Order Comment: Speci men Type: BLOOD SPECIMENOrdering Facility: [facility] Address: [address] [place] [address] Performed By: #### 2 4321-2 ####[facility]ENTERWNCLIA [id number] [place] [address] [place] Calcium [Mass/Vol] 10.2 mg/dL Normal 8.5-10.2 [facility] Comment on above: Order Comment: Speci men Type: BLOOD SPECIMENOrdering Facility: [facility] Address: [address] [place] [address] Performed By: #### 2 4321-2 ####[facility] JOSHUA MILLWNCLIA [id number] [place] [address] [place] Chloride [Moles/Vol] 102 mmol/L Normal 98-107 [facility] Comment on above: Order Comment: Speci men Type: BLOOD SPECIMENOrdering Facility: [facility] Address: [address] [place] [address] Performed By: #### 2 4321-2 ####[facility] JOSHUA MILLWNCLIA [id number] [place] [address] [place] CO2 [Moles/Vol] 24 mmol/L Normal 22-30 [facility] Comment on above: Order Comment: Speci men Type: BLOOD SPECIMENOrdering Facility: [facility] Address: [address] [place] [address] Performed By: #### 2 4321-2 ####[facility] [id number] [place] [address] [place] Creatinine [Mass/Vol] 0.86 mg/dL Normal 0.58-0.96 [facility] Comment on above: Order Comment: Speci men Type: BLOOD SPECIMENOrdering Facility: [facility] Address: [address] [place] [address] Performed By: #### 2 4321-2 ####[facility] [id number] [place] [address] [place] Creatinine and Glomerular filtration rate.predicted panel (S/P/Bld) 66 mL/min/1.73m??? Normal >=60 [facility] Comment on above: Order Comment: Speci men Type: BLOOD SPECIMENOrdering Facility: [facility] Address: [address] [place] [address] Result Comment: Analia mated Glomerular Filtration Rate (eGFR) is calculated using the 2020 CKD-EPI creatinine equation. This equation utilizes serum creatinine, sex, and age as parameters. The creatinine assay has traceable calibration to isotope dilution-mass spectrometry. Refer to KDIGO guidelines for clinical interpretation. In patients with unstable renal function, e.g. those with acute kidney injury, the eGFR may not accurately reflect actual GFR. Performed By: #### 2 4321-2 ####[facility] [id number] [place] [address] [place] Glucose [Mass/Vol] 93 mg/dL Normal 74-99 [facility] Comment on above: Order Comment: Speci men Type: BLOOD SPECIMENOrdering Facility: [facility] Address: [address] [place] [address] Result Comment: The [place] [employer] (ADA) provides guidance for cutoff values for fasting glucose and random glucose. The ADA defines fasting as no caloric intake for at least 8 hours. Fasting plasma glucose results between 100 to 125 mg/dL indicate increased risk for diabetes (prediabetes). Fasting plasma glucose results greater than or equal to 126 mg/dL meet the criteria for diagnosis of diabetes. In the absence of unequivocal hyperglycemia, results should be confirmed by repeat testing. In a patient with classic symptoms of hyperglycemia or hyperglycemic crisis, random plasma glucose results greater than or equal to 200 mg/dL meet the criteria for diagnosis of diabetes. Reference: Standards of Medical Care in Diabetes 2016, [place] [employer]. Diabetes Care. 2016.39(Suppl 1). Performed By: #### 2 4321-2 ####[facility] [id number] [place] [address] [place] Potassium [Moles/Vol] 4.8 mmol/L Normal 3.7-5.1 [facility] Comment on above: Order Comment: Speci men Type: BLOOD SPECIMENOrdering Facility: [facility] Address: [address] [place] [address] Performed By: #### 2 4321-2 ####[facility] [id number] [place] [address] [place] Sodium [Moles/Vol] 139 mmol/L Normal 136-144 [facility] Comment on above: Order Comment: Speci men Type: BLOOD SPECIMENOrdering Facility: [facility] Address: [address] [place] [address] Performed By: #### 2 4321-2 ####[facility] [id number] [place] [address] [place] Urea nitrogen [Mass/Vol] 20 mg/dL Normal 7-21 [facility] Comment on above: Order Comment: Speci men Type: BLOOD SPECIMENOrdering Facility: [facility] Address: [address] [place] [address] Performed By: #### 2 4321-2 ####[facility] HOSPITALLIA [id number] [place] [address] [facility] [place] 08-21-2024 SANTON Telephone (RUBI) -------- HILLARYALBERTO Foote ([id number]) 1935 F Date Time Provider Department 08/21/24 OKSANA OLIVIA During your visit today, we recorded the following information about you: Oksana Olivia LISW 08/21/2024 3:34 PM Signed Pt noted on [facility] 1st time treatment report. Pt is noted on report for Zometa injection, no social work follow up indicated. OSBALDO Rudolph-S Allergies As of Date: 08/21/2024 Noted Allergy Reaction VICODIN (HYDROCODONE-ACETAMINOPH E*04/27/2009 5 - Intolerance Date Reviewed: 07/04/2024 Reviewed by: Susan Carrero APRN.BASKET SORTER - Fully Assessed Reason for Visit: Social Work Services [507] Prescriptions as of 08/21/2024 - gabapentin (NEURONTIN) 100 mg capsule Take 1 capsule by mouth daily at bedtime for 180 days. - acetaminophen (TYLENOL) 325 mg tablet Take 650 mg by mouth every 6 hours as needed. - anastrozole (ARIMIDEX) 1 mg tablet Take 1 tablet by mouth once daily. - losartan (COZAAR) 25 mg tablet Take 1 tablet by mouth once daily. - pravastatin (PRAVACHOL) 40 mg tablet Take 1 tablet by mouth daily at bedtime. - amLODIPine (NORVASC) 2.5 mg tablet Take 1 tablet by mouth once daily. - nortriptyline (PAMELOR) 50 mg capsule TAKE ONE CAPSULE BY MOUTH EVERY DAY AT BEDTIME - potassium chloride (K-TAB) 10 mEq tablet Take 1 tablet by mouth daily with breakfast. On days she takes lasix - furosemide (LASIX) 20 mg tablet take 1 tablet by mouth every other day - >Zippered Compression Knee High 30-40 mm custom CUSTOM MEASURE FOR KNEE HIGH HO COMPRESSION STOCKINGS, 30-40 MM, WITH ZIPPERS PLEASE. IF UNABLE, PLEASE REFER TO CHUNG AT [facility]. DX: EDEMA - multivitamin tablet Take 1 tablet by mouth once daily. - Aspirin 81 mg Tab Take 81 mg by mouth once daily. - cholecalciferol (VITAMIN D3) 50 mcg (2,000 unit) tablet Take by mouth once daily. - CALCIUM 500 MG TAB Take 1500mg daily when she remebers Problem List As Of Date 08/21/2024 Noted Resolved PAIN IN LIMB [M79.609] Iron deficiency anemia [D50.9] PURE HYPERCHOLESTEROLEM [E78.00] Anxiety state [F41.1] Urinary tract infection, site not specified [N3* 12/30/2015 Osteopenia [M85.80] 05/02/2005 LIPOMA SKIN NEC [D17.39] 05/02/2005 ESOPHAGEAL REFLUX [K21.9] 05/02/2005 PAIN ABDOMEN( Right Upper Quadrant) [R10.11] 07/16/2007 GASTRITIS ANTRAL( W/O Hemorrhage) [K29.60] 07/27/2007 ACUTE GASTRITIS W/O HEMORRHAGE [K29.00] 07/27/2007 CHOLECYSTITIS SEE ALSO GALLBLADDER CHRONIC [K*08/13/2007 Dysuria [R30.0] 08/16/2007 06/27/2014 MULTINODULAR GOITER (NONTOXIC) [E04.2] 10/30/2008 Hot flash, menopausal [N95.1] 06/21/2011 06/27/2014 PHN (postherpetic neuralgia) [B02.29] 02/06/2012 Postherpetic neuralgia [B02.29] 06/14/2012 06/27/2014 Pinched nerve in neck [G58.9] 01/31/2018 Hot flashes [R23.2] 09/21/2018 Essential hypertension [I10] 04/14/2022 Pain of left hip joint [M25.552] 07/19/2022 Murmur, cardiac [R01.1] 08/25/2016 History of cerebral infarction [Z86.73] 12/08/2023 VHD (valvular heart disease) [I38] 12/15/2023 Malignant neoplasm of right breast in female, e*01/09/2024 Atherosclerosis of aorta (HCC) [I70.0] 01/09/2024 Stage 3a chronic kidney disease (HCC) [N18.31] 01/09/2024 Diastolic dysfunction [I51.89] 01/09/2024 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] 01/09/2024 Encounter Status:Closed by OKSANA OLIVIA on 08/21/24 [facility] [place] 08-05-2024 SANTON Telephone (HEMVINCENT) -------- ALBERTO RODRIGUEZ ([id number]) 1935 F Date Time Provider Department 08/05/24 LANEY IGNACIO During your visit today, we recorded the following information about you: Jaelyn Evans LPN 08/05/2024 1:09 PM Signed Dental clearance form received. Clear from active disease. Scanned into chart. CHIQUITA Ferrer Paul A, DO 08/05/2024 1:20 PM Signed Can schedule BMP/Zometa every 3 months beginning within the next few weeks. DO Patel Yin Brandy 08/05/2024 2:29 PM Signed I called Alberto and asked her to call us back to schedule the below requested. Kimberly Bowen 08/09/2024 2:00 PM Signed Patient called back and scheduled. Chemo start email sent Kimberly Kraus Allergies As of Date: 08/05/2024 Noted Allergy Reaction VICODIN (HYDROCODONE-ACETAMINOPH E*04/27/2009 5 - Intolerance Date Reviewed: 07/04/2024 Reviewed by: Susan Carrero APRN.BASKET SORTER - Fully Assessed Reason for Visit: Dental Clearance - Chemotherapy [1356] Prescriptions as of 08/09/2024 - gabapentin (NEURONTIN) 100 mg capsule Take 1 capsule by mouth daily at bedtime for 180 days. - acetaminophen (TYLENOL) 325 mg tablet Take 650 mg by mouth every 6 hours as needed. - anastrozole (ARIMIDEX) 1 mg tablet Take 1 tablet by mouth once daily. - losartan (COZAAR) 25 mg tablet Take 1 tablet by mouth once daily. - pravastatin (PRAVACHOL) 40 mg tablet Take 1 tablet by mouth daily at bedtime. - amLODIPine (NORVASC) 2.5 mg tablet Take 1 tablet by mouth once daily. - nortriptyline (PAMELOR) 50 mg capsule TAKE ONE CAPSULE BY MOUTH EVERY DAY AT BEDTIME - potassium chloride (K-TAB) 10 mEq tablet Take 1 tablet by mouth daily with breakfast. On days she takes lasix - furosemide (LASIX) 20 mg tablet take 1 tablet by mouth every other day - >Zippered Compression Knee High 30-40 mm custom CUSTOM MEASURE FOR KNEE HIGH HO COMPRESSION STOCKINGS, 30-40 MM, WITH ZIPPERS PLEASE. IF UNABLE, PLEASE REFER TO CHUNG AT [facility]. DX: EDEMA - multivitamin tablet Take 1 tablet by mouth once daily. - Aspirin 81 mg Tab Take 81 mg by mouth once daily. - cholecalciferol (VITAMIN D3) 50 mcg (2,000 unit) tablet Take by mouth once daily. - CALCIUM 500 MG TAB Take 1500mg daily when she remebers Problem List As Of Date 08/05/2024 Noted Resolved PAIN IN LIMB [M79.609] Iron deficiency anemia [D50.9] PURE HYPERCHOLESTEROLEM [E78.00] Anxiety state [F41.1] Urinary tract infection, site not specified [N3* 12/30/2015 Osteopenia [M85.80] 05/02/2005 LIPOMA SKIN NEC [D17.39] 05/02/2005 ESOPHAGEAL REFLUX [K21.9] 05/02/2005 PAIN ABDOMEN( Right Upper Quadrant) [R10.11] 07/16/2007 GASTRITIS ANTRAL( W/O Hemorrhage) [K29.60] 07/27/2007 ACUTE GASTRITIS W/O HEMORRHAGE [K29.00] 07/27/2007 CHOLECYSTITIS SEE ALSO GALLBLADDER CHRONIC [K*08/13/2007 Dysuria [R30.0] 08/16/2007 06/27/2014 MULTINODULAR GOITER (NONTOXIC) [E04.2] 10/30/2008 Hot flash, menopausal [N95.1] 06/21/2011 06/27/2014 PHN (postherpetic neuralgia) [B02.29] 02/06/2012 Postherpetic neuralgia [B02.29] 06/14/2012 06/27/2014 Pinched nerve in neck [G58.9] 01/31/2018 Hot flashes [R23.2] 09/21/2018 Essential hypertension [I10] 04/14/2022 Pain of left hip joint [M25.552] 07/19/2022 Murmur, cardiac [R01.1] 08/25/2016 History of cerebral infarction [Z86.73] 12/08/2023 VHD (valvular heart disease) [I38] 12/15/2023 Malignant neoplasm of right breast in female, e*01/09/2024 Atherosclerosis of aorta (HCC) [I70.0] 01/09/2024 Stage 3a chronic kidney disease (HCC) [N18.31] 01/09/2024 Diastolic dysfunction [I51.89] 01/09/2024 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] 01/09/2024 Encounter Status:Closed by KIMBERLY KRAUS on 08/09/24 [facility] CNOVSPon 07-04-2024 CNOVSP Visit (SP) Office (RUBI) -------- ALBERTO RODRIGUEZ ([id number]) 1935 F Date Time Provider Department 07/04/24 10:00 AM SUSAN CARRERO During your visit today, we recorded the following information about you: Temperature Pulse Blood pressure Weight 98.5 degrees 92/minute 113/65 61.9 kg Susan Carrero APRN.BASKET SORTER 07/04/2024 10:45 AM Signed Chief Complaint Patient presents with: Established Patient HPI: Alberto Rodriguez is a 88 year old female who presents here today for SCP/breast cancer. Per Dr. Ignacio's previous note: H/o Stereotactic right breast biopsy 10/04/2023. Pathology: Right breast, anterior, calcifications, stereotactic-guided core biopsy, with tophat clip placement (A): - Atypical lobular hyperplasia (ALH). - Fibrocystic changes, including usual ductal hyperplasia (UDH), dense stromal fibrosis, cysts, and apocrine metaplasia, and pseudoangiomatous stromal hyperplasia (PASH). - Microcalcifications in non-neoplastic breast epithelium. - Please see Comment I. 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 - Microcalcifications in lobular neoplasia and non-neoplastic breast epithelium.' Positive (greater than 10%) ER % staining 99 Estrogen Receptor (Staining Intensity) Strong Estrogen Receptor Internal Control Present and Stained as Expected Estrogen Receptor External Control Present and Stained as Expected WY status Positive (greater than or equal to 1%) WY % staining 99 Progesterone Receptor (Staining Intensity) Strong Progesterone Receptor Internal Control Present and Stained as Expected Progesterone Receptor External Control Present and Stained as Expected HER2 IHC Status Equivocal for HER2 Overexpression HER2 IHC Score 2+ Tumor Type Primary Invasive Breast Carcinoma Breast Tumor Grade Not Graded INTERPRETATION: NEGATIVE for HER2 (ERBB2) GENE AMPLIFICATION Ultrasound right axilla 10/19/2023 showed no evidence of adenopathy. Multiple various sized nodes were observed but had benign characteristics. MRI breasts 10/23/2023: IMPRESSION: SUSPICIOUS 1. 1.3 cm area of abnormal enhancement in the upper inner left breast, indeterminate for malignancy. Second look ultrasound is recommended to facilitate possible ultrasound guided biopsy. If not seen sonographically, an MRI guided biopsy would be recommended. 2. 3.8 cm area of abnormal combined mass and nonmasslike enhancement with mixed washout and persistent enhancement kinetics in the 8-10:00 right breast, at site of biopsy-proven malignancy. Additional 2.4 cm area of nonmasslike enhancement in the retroareolar right breast with adjacent biopsy marking clip demonstrating atypical lobular hyperplasia; this area remains somewhat suspicious/indeterminate . When including both abnormal areas of enhancement, total abnormal enhancement would span 6.4 cm. Patient has surgical/oncologic follow-up. 3. Marked background parenchymal enhancement limits sensitivity of MRI. 4. No lymphadenopathy. MRI guided biopsy with clip placement of LEFT breast lesion at 11:00 3 cm from the nipple on 11/06/2023. Pathology: FINAL DIAGNOSIS Left breast, 11:00, 3cmfn, 0.9cm x 0.9cm x 0.6cm mass, ultrasound-guided core biopsy, with Q clip placement: - Focal atypical lobular hyperplasia (ALH), columnar cell change, and dense stromal fibrosis. Scheduled for repeat :MRI biopsy with clip placement 11/19. She lives in [place]. . Has close friend. Fully capable of ADLs and IADLs. Cares for home and yard. Has been diagnosed with anemia in the past. Most recent CBC was 2 months ago indicating moderate anemia. Borderline microcytic indexes. Underwent left breast excisional biopsy along with right mastectomy and sentinel lymph node biopsy on 12/18/2023. Pathology: 1. Left breast, oriented excision (A) - Lobular carcinoma in situ (LCIS), classic type. -Biopsy site changes are identified. 2. Right axillary lymph node, excision (B) - One lymph node, negative for metastatic carcinoma (0/1). 3. 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 -Biopsy site changes are identified. -The surrounding breast tissue shows atypical ductal hyperplasia (ADH), fibrocystic changes and microcalcifications. PJM/pjm/12/21/23 Diagnosis Comment CCM Select slides have been reviewed in consultation with Dr. Walters, of the [facility] breast pathology d (more content not included)... Normal [facility] VALERI SCREENING W TOMOon 07-04 VALERI SCREENING W ARMANDO * * *Final Report* * * DATE OF EXAM: Jul 04 2024 11:08AM [id number] - VALERI SCREENING W ARMANDO / PROCEDURE REASON: Atypical lobular hyperplasia (ALH) of left breast * * * * Physician Interpretation * * * * RESULT: [place] [address] #[id number] - [facility] SCREENING W ARMANDO HISTORY: 88 year-old patient seen for screening. Patient is asymptomatic in both breasts. The patient has the following personal history of breast cancer: breast cancer in the right breast in 2023. The patient has a family history of breast cancer. COMPARISON STUDIES: The present examination has been compared to prior imaging studies dated 10/19/2023 (ultrasound), 10/21/2023 (MRI), 11/06/2023 (mammogram), 11/20/2023 (mammogram) and 12/13/2023 (mammogram). MAMMOGRAM TECHNIQUE: The study was acquired using full field digital technology and interpreted from soft copy. Digital Breast Tomosynthesis (DBT) images were obtained and used to assist in the interpretation of this examination. MAMMOGRAM FINDINGS: The breast is heterogeneously dense, which may obscure small masses. No suspicious masses, calcifications or other abnormalities are seen in the left breast. There are no significant interval changes. IMPRESSION: There is no mammographic evidence of malignancy in the left breast. Routine screening mammogram is recommended. Annual mammogram will be due in 1 year. BI-RADS Category 1: Negative Interpreting Radiologist: Mercedes Lim M.D. Electronically signed on: 07/06/2024 Executive Assistant: ALBA Transcribe Date/Time: Jul 04 2024 10:46A Dictated by: MRECEDES LIM MD This examination was interpreted and the report reviewed and electronically signed by: MERCEDES LIM MD on Jul 06 2024 1:58AM EST [id number] Normal [facility] CNCOon 06-26-2024 CNCO Letter Text Normal [facility] CNOVon 04-04-2024 CNOV Office Visit (BRCRBD ) -------- ALBERTO RODRIGUEZ ([id number]) 1935 F Date Time Provider Department 04/04/24 12:30 PM LOY KWON During your visit today, we recorded the following information about you: Loy Kwno MD 04/04/2024 1:00 PM Signed REASON FOR TODAY'S VISIT: Last seen December 2023 at her post op visit Returns today for scheduled interval exam and check She notes no breast related complaints today. No SEs from the anastrozole HISTORY: 12/18/23: RIGHT- SM/SLN and left excisional biopsy RIGHT: pT1bNx ER 99 [place] 99 Her 2 FISH negative LEFT c/w LCIS December 2023 Initiated anastrozole (Masci) Plan to begin Zometa approx June 2024 REVIEW OF SYSTEMS 14 point ROS is negative except for that which is stated above. EXAMINATION: The sensitive examination was discussed with the Patient or Patient's Authorized Salvage Supervisor. As applicable, any other physician, advance practice provider, medical student, or other health professional student that will be observing or involved in the sensitive examination for educational or training purposes was discussed with the Patient or Authorized Salvage Supervisor. The Patient or Authorized Salvage Supervisor has agreed to proceed with the sensitive examination. (Sensitive examination includes inspection and/or palpation of the breasts, pelvis, prostate and anorectal regions) There is no evidence of recurrence on the Right. well healed mastectomy scar no concerning masses left breast: well healed 12o'c excisional biopsy scar no concerning masses There is no lymphadenopathy. BREAST IMAGING: Due for LEFT mammogram July 2024 IMPRESSION./PLAN: new diagnosis of RIGHT breast cancer presenting as suspicious extent of calcifications on July 2023 screen diagnosis eventually made by 2 site stereo biopsy in September cTmic N0 ER/WY 99 Her2 FISH negative the anterior(RA) biopsy: ALH MRI prompted biopsy LEFT c/w ALH 12/18/23: RIGHT- SM/SLN and left excisional biopsy RIGHT: pT1bNx ER 99 W[place] 99 Her 2 FISH negative LEFT c/w LCIS doing well. Tolerating endocrine therapy without issue Normal CBE today She will continue to have her active surveillance and survivorship visits through medical oncology - next visit scheduled with Michele Carrero. Will coordinate her imaging same day if possible She is encouraged to call with any future concerns I spent a total of 25 minutes on the date of the service which included preparing to see the patient, [id number] patient care, completing clinical documentation, obtaining and/or reviewing separately obtained history, performing a medically appropriate examination, counseling and educating the patient/family/caregiver , ordering medications, tests, or procedures, communicating with other HCPs (not separately reported), independently interpreting results (not separately reported), communicating results to the patient/family/caregiver , and care coordination (not separately reported). Loy Kwon MD Referring Provider: SELF [200] Allergies As of Date: 04/04/2024 Noted Allergy Reaction VICODIN (HYDROCODONE-ACETAMINOPH E*04/27/2009 5 - Intolerance Date Reviewed: 04/04/2024 Reviewed by: Nuris Alegria RN - Fully Assessed Reason for Visit: Follow Up [171] Primary Visit Diagnosis:Malignant neoplasm of upper-outer quadrant of right breast in female, estrogen receptor positive (HCC) [C50.411, Z17.0] Prescriptions as of 04/04/2024 - gabapentin (NEURONTIN) 100 mg capsule Take 1 capsule by mouth daily at bedtime for 180 days. - acetaminophen (TYLENOL) 325 mg tablet Take 650 mg by mouth every 6 hours as needed. - anastrozole (ARIMIDEX) 1 mg tablet Take 1 tablet by mouth once daily. - losartan (COZAAR) 25 mg tablet Take 1 tablet by mouth once daily. - pravastatin (PRAVACHOL) 40 mg tablet Take 1 tablet by mouth daily at bedtime. - amLODIPine (NORVASC) 2.5 mg tablet Take 1 tablet by mouth once daily. - nortriptyline (PAMELOR) 50 mg capsule TAKE ONE CAPSULE BY MOUTH EVERY DAY AT BEDTIME - potassium chloride (K-TAB) 10 mEq tablet Take 1 tablet by mouth daily with breakfast. On days she takes lasix - furosemide (LASIX) 20 mg tablet take 1 tablet by mouth every other day - >Zippered Compression Knee High 30-40 mm custom CUSTOM MEASURE FOR KNEE HIGH HO COMPRESSION STOCKINGS, 30-40 MM, WITH ZIPPERS PLEASE. IF UNABLE, PLEASE REFER TO [facility] AT [facility]. DX: EDEMA - multivitamin tablet Take 1 tablet by mouth once daily. - Aspirin 81 mg Tab Take 81 mg by mouth once daily. - cholecalciferol (VITAMIN D3) 50 mcg (2,000 unit) tablet Take by mouth once daily. - CALCIUM 500 MG TAB Take 1500mg daily when she remebers - naproxen sodium(ALEVE 220 MG TAB) Take one(1) tablet twice daily.as necessary Problem List As Of Date 04/04/2024 Noted Resolved PAIN IN LIMB [M79.609] Iron deficiency anemia [D5 (more content not included)... [facility] CNPNon 04-04-2024 CNPN Telephone (STEPHANIEBD) -------- ALBERTO RODRIGUEZ ([id number]) 1935 F Date Time Provider Department 04/04/24 KIMBERLY CHAVEZ BRRIANA During your visit today, we recorded the following information about you: Kimberly Chavez PA-C 04/04/2024 1:11 PM Signed Message left for patient re: mammogram Able to schedule same day as her follow-up with Susan Carrero CNP on 07/04 Kimberly Chavez PA-C April 04, 2024 1:10 PM Allergies As of Date: 04/04/2024 Noted Allergy Reaction VICODIN (HYDROCODONE-ACETAMINOPH E*04/27/2009 5 - Intolerance Date Reviewed: 04/04/2024 Reviewed by: Nuris Alegria, RN - Fully Assessed Reason for Visit: Appointment [186] Prescriptions as of 04/04/2024 - gabapentin (NEURONTIN) 100 mg capsule Take 1 capsule by mouth daily at bedtime for 180 days. - acetaminophen (TYLENOL) 325 mg tablet Take 650 mg by mouth every 6 hours as needed. - anastrozole (ARIMIDEX) 1 mg tablet Take 1 tablet by mouth once daily. - losartan (COZAAR) 25 mg tablet Take 1 tablet by mouth once daily. - pravastatin (PRAVACHOL) 40 mg tablet Take 1 tablet by mouth daily at bedtime. - amLODIPine (NORVASC) 2.5 mg tablet Take 1 tablet by mouth once daily. - nortriptyline (PAMELOR) 50 mg capsule TAKE ONE CAPSULE BY MOUTH EVERY DAY AT BEDTIME - potassium chloride (K-TAB) 10 mEq tablet Take 1 tablet by mouth daily with breakfast. On days she takes lasix - furosemide (LASIX) 20 mg tablet take 1 tablet by mouth every other day - >Zippered Compression Knee High 30-40 mm custom CUSTOM MEASURE FOR KNEE HIGH HO COMPRESSION STOCKINGS, 30-40 MM, WITH ZIPPERS PLEASE. IF UNABLE, PLEASE REFER TO [facility] AT [facility]. DX: EDEMA - multivitamin tablet Take 1 tablet by mouth once daily. - Aspirin 81 mg Tab Take 81 mg by mouth once daily. - cholecalciferol (VITAMIN D3) 50 mcg (2,000 unit) tablet Take by mouth once daily. 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] 05/02/2005 ESOPHAGEAL REFLUX [K21.9] 05/02/2005 PAIN ABDOMEN( Right Upper Quadrant) [R10.11] 07/16/2007 GASTRITIS ANTRAL( W/O Hemorrhage) [K29.60] 07/27/2007 ACUTE GASTRITIS W/O HEMORRHAGE [K29.00] 07/27/2007 CHOLECYSTITIS SEE ALSO GALLBLADDER CHRONIC [K*08/13/2007 Dysuria [R30.0] 08/16/2007 06/27/2014 MULTINODULAR GOITER (NONTOXIC) [E04.2] 10/30/2008 Hot flash, menopausal [N95.1] 06/21/2011 06/27/2014 PHN (postherpetic neuralgia) [B02.29] 02/06/2012 Postherpetic neuralgia [B02.29] 06/14/2012 06/27/2014 Pinched nerve in neck [G58.9] 01/31/2018 Hot flashes [R23.2] 09/21/2018 Essential hypertension [I10] 04/14/2022 Pain of left hip joint [M25.552] 07/19/2022 Murmur, cardiac [R01.1] 08/25/2016 History of cerebral infarction [Z86.73] 12/08/2023 VHD (valvular heart disease) [I38] 12/15/2023 Malignant neoplasm of right breast in female, e*01/09/2024 Atherosclerosis of aorta (HCC) [I70.0] 01/09/2024 Stage 3a chronic kidney disease (HCC) [N18.31] 01/09/2024 Diastolic dysfunction [I51.89] 01/09/2024 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] 01/09/2024 Encounter Status:Closed by KIMBERLY CHAVEZ on 04/04/24 Normal [facility] CNCOon 01-15-2024 CNCO Letter Text Normal [facility] CNOVon 01-09-2024 CNOV Office Visit (INTMWS ) -------- ALBERTO RODRIGUEZ ([id number]) 1935 F Date Time Provider Department 01/09/24 10:00 AM RAMANDEEP ALVAREZ INTMWS During your visit today, we recorded the following information about you: Pulse Respiration Blood pressure Weight 89/minute 16/minute 122/72 59 kg Height 1.524 m Ramandeep Alvarez MD 01/09/2024 12:46 PM Signed Alberto Rodriguez is a 88 year old female here for a Medicare wellness visit. Medicare Health Risk Assessment General Health good Exercise: Minutes/Day 15 to 30 mins Exercise: Days/Week Daily Alcohol: Daily Use No Alcohol: Drinks/Day No Alcohol: 6 or more drinks No Feel off balance No Concerns: Teeth/Dentures No Concerns: Sexual function No Troubled by feelings No Frequency: Eating healthy diet Yes- eats a lot of fruits and vegetables, chicken, beef and shrimp ADLs requiring help No Safety precautions in home/vehicle NO Smoke, vape, chews tobacco No Difficulty hearing NoNo Difficulty seeing Current Providers Specialists: I have reviewed specialist-related care of the patient in the medical record. Medical/Family history review Reviewed and updated problem list, medical/surgical/family/ social history, medications, and allergies. Opioid use review Opioid Medications (last 90 days) 12/18/2023 12/19/2023 03:03 12/21/2023 23:59 Opioid Medications hydrocodone/acetaminophe n Admitted: Dec 17 - Dec 18, 2023 1 tablet q 8 H PRN ORAL 1 tablet q 8 H PRN ORAL -Rx End hydromorphone HCl, hydromorphone HCl/PF 0.2 mg, INTRAVENOUS, EVERY 10 MINUTES NEEDED, 4 doses, Starting on Mon12/18/23 at 1029, Until Mon12/19/23 at 0303, SECOND LINE THERAPY for moderate or severe pain Hold for respiratory rate less than 14 Caution: IV hydromorphone is approximately 8 times MORE POTENT than IV morphine. For example, hydromorphone 1mg IV = morphine 8mg IV Recovery or Phase I (only) 0.2 mg, INTRAVENOUS, EVERY 10 MINUTES NEEDED, 4 doses, Starting on Mon12/18/23 at 1029, Until Mon12/19/23 at 0303, SECOND LINE THERAPY for moderate or severe pain Hold for respiratory rate less than 14 Caution: IV hydromorphone is approximately 8 times MORE POTENT than IV morphine. For example, hydromorphone 1mg IV = morphine 8mg IV Recovery or Phase I (only)-Discontinued (AUTO DC AT D) hydromorphone HCl INTRAVENOUS, NEEDED, Starting on Mon12/18/23 at 0950, Until Mon12/18/23 at 1016, Anesthesia Intraprocedure -Discontinued (Disc in Anes) oxycodone HCl 5 mg, ORAL, POST-OP PRN, 1 dose, Starting on Mon12/18/23 at 1029, Until Mon12/18/23 at 1140, Moderate Pain (4-6) - Enteral, Recovery or Phase I (only) -Completed Details Outpatient prescription Hospital medication Anxiety/Depression screening Recommendation: no further intervention at this time Cognitive screening Mini Cog Score: 5 Cognitive screening reviewed and No further action needed (score 3-5). Functional Observation Was the patient's Timed Up AND Go test unsteady or >= 12 seconds? No Advance Care Planning Surrogate decision maker and/or advance care plan documented Measurements BP 122/72 Pulse 89 Resp 16 Ht 152.4 cm (5') Wt 59 kg (130 lb 1.1 oz) BMI 25.40 kg/m? Vision Screening: Follows with optometry/ophthalmology Assessment/Plan Medicare annual wellness visit, subsequent (Z00.00) - Counseled on healthy diet and regular exercise - Fall avoidance information provided - Personalized prevention plan providedReason for Visit Patient presents with: Yearly Exam Alberto Rodriguez is a 88 year old female who presents here today for Above Complaints.. Health Maintenance Covid-19 Vaccine( season) Influenza Vaccine(1) RYAN Resendiz is a very pleasant 88-year-old woman with a past medical history of hypertension, hyper cholesterolemia, postherpetic neuralgia, chronic venous insufficiency who was recently diagnosed with breast cancer. The right breast had lobular hyperplasia which was atypical, ductal hyperplasia apocrine metaplasia, microinvasive cancer. Since she last saw me for the poison armin, that has cleared up. Had surgery, is healing well, except some pain where the lymph node was taken. She Is back to doing every thing including entertaining her family. She is on the Arimidex and she is doing fairly well, it has not bothered her too much as of now. She used to be on estrogen from hot flashes but for obvious reasons we cannot give her the medication and notes not too problematic hot flashes at this time. Her bone density is normal . For sleeping she is still taking the pamelor and her cognition is good still, she scored a 5/5 for the cognition part. HTN: BP controlled today. Checks BP at home. Compliant with medications. Denies any chest pain, palpitations, SOB, swelling in the feet. Careful with diet to avoid salt, trying to eat more fruits and vegetables, exercise (more content not included)... Normal [facility] CNOVSPon 01-02-2024 [facility] Visit (SP) Office (RUBI) -------- ALBERTO RODRIGUEZ ([id number]) 1935 F Date Time Provider Department 01/02/24 9:10 AM LANEY IGNACIO During your visit today, we recorded the following information about you: Temperature Pulse Blood pressure Weight 98.2 degrees 82/minute 106/67 59.4 kg Laney Ignacio DO 01/02/2024 10:06 AM Signed Consulted for breast cancer. The impression and plan will be communicated by way of the shared electronic record. HPI: The patient is an 88-year-old female with a past medical history as outlined below. Stereotactic right breast biopsy 10/04/2023. Pathology: Right breast, anterior, calcifications, stereotactic-guided core biopsy, with tophat clip placement (A): - Atypical lobular hyperplasia (ALH). - Fibrocystic changes, including usual ductal hyperplasia (UDH), dense stromal fibrosis, cysts, and apocrine metaplasia, and pseudoangiomatous stromal hyperplasia (PASH). - Microcalcifications in non-neoplastic breast epithelium. - Please see Comment I. 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 - Microcalcifications in lobular neoplasia and non-neoplastic breast epithelium.' Positive (greater than 10%) ER % staining 99 Estrogen Receptor (Staining Intensity) Strong Estrogen Receptor Internal Control Present and Stained as Expected Estrogen Receptor External Control Present and Stained as Expected WY status Positive (greater than or equal to 1%) WY % staining 99 Progesterone Receptor (Staining Intensity) Strong Progesterone Receptor Internal Control Present and Stained as Expected Progesterone Receptor External Control Present and Stained as Expected HER2 IHC Status Equivocal for HER2 Overexpression HER2 IHC Score 2+ Tumor Type Primary Invasive Breast Carcinoma Breast Tumor Grade Not Graded INTERPRETATION: NEGATIVE for HER2 (ERBB2) GENE AMPLIFICATION Ultrasound right axilla 10/19/2023 showed no evidence of adenopathy. Multiple various sized nodes were observed but had benign characteristics. MRI breasts 10/23/2023: IMPRESSION: SUSPICIOUS 1. 1.3 cm area of abnormal enhancement in the upper inner left breast, indeterminate for malignancy. Second look ultrasound is recommended to facilitate possible ultrasound guided biopsy. If not seen sonographically, an MRI guided biopsy would be recommended. 2. 3.8 cm area of abnormal combined mass and nonmasslike enhancement with mixed washout and persistent enhancement kinetics in the 8-10:00 right breast, at site of biopsy-proven malignancy. Additional 2.4 cm area of nonmasslike enhancement in the retroareolar right breast with adjacent biopsy marking clip demonstrating atypical lobular hyperplasia; this area remains somewhat suspicious/indeterminate . When including both abnormal areas of enhancement, total abnormal enhancement would span 6.4 cm. Patient has surgical/oncologic follow-up. 3. Marked background parenchymal enhancement limits sensitivity of MRI. 4. No lymphadenopathy. MRI guided biopsy with clip placement of LEFT breast lesion at 11:00 3 cm from the nipple on 11/06/2023. Pathology: FINAL DIAGNOSIS Left breast, 11:00, 3cmfn, 0.9cm x 0.9cm x 0.6cm mass, ultrasound-guided core biopsy, with Q clip placement: - Focal atypical lobular hyperplasia (ALH), columnar cell change, and dense stromal fibrosis. Scheduled for repeat :MRI biopsy with clip placement 11/19. She lives in [place]. . Has close friend. Fully capable of ADLs and IADLs. Cares for home and yard. Has been diagnosed with anemia in the past. Most recent CBC was 2 months ago indicating moderate anemia. Borderline microcytic indexes. Presents for ongoing oncologic management. Interim history: Underwent left breast excisional biopsy along with right mastectomy and sentinel lymph node biopsy on 12/18/2023. Pathology: 1. Left breast, oriented excision (A) - Lobular carcinoma in situ (LCIS), classic type. -Biopsy site changes are identified. 2. Right axillary lymph node, excision (B) - One lymph node, negative for metastatic carcinoma (0/1). 3. Right breast, mastectomy (C) - Invasive mammary carcinoma with mixed ductal and lobular features, [place] grade 1, spanning 0.7 cm, (see comment). 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 -Biopsy site changes are identified. -The surrounding breast tissue shows atypical ductal hyperplasia (ADH), fibrocystic changes and microcalcifications. SHANELLE/shanelle/12/21/23 Diagnosis Comment CCM Select slides have been reviewed in consultatio (more content not included)... Normal [facility] CNOVon 12-27-2023 CNOV Office Visit (BRCRBD ) -------- HILLARYALBERTO Foote ([id number]) 1935 F Date Time Provider Department 12/27/23 10:00 AM LOY KWON BRCRBD During your visit today, we recorded the following information about you: Loy Kwon MD 12/27/2023 12:40 PM Signed REASON FOR TODAY'S VISIT: Post - operative follow-up 12/18/23. she has not taken the PIYUSH off since surgery HISTORY: She returns today for a post-operative check s/p RIGHT- SM/SLN and left excisional biopsy . EXAMINATION: The left breast incision is healing well. RIGHT mastectomy scar healing well flaps are down and viable from the PIYUSH compression - she has a 4x4 cm fluid collection in the UOQ- this was - with palpation- broken down. CONOR removed without issue Patient's pathology report shows: LEFT Lobular carcinoma in situ (LCIS), classic type. RIGHT IMC G1 7mm extensive LCIS/ADH IMPRESSION/PLAN: new diagnosis of RIGHT breast cancer presenting as suspicious extent of calcifications on July 2023 screen diagnosis eventually made by 2 site stereo biopsy in September cTmic N0 ER/WY 99 Her2 FISH negative the anterior(RA) biopsy: ALH MRI prompted biopsy LEFT c/w ALH 12/18/23: RIGHT- SM/SLN and left excisional biopsy RIGHT: pT1bNx ER 99 WY 99 Her 2 FISH negative LEFT c/w LCIS discussed incision care and gentle ROM exercises Showed her massage techniques to target the UOQ area where fluid was retained from the constant PIYUSH pressure Reviewed pathology finding with patient. Copy of report given to patient for her records. She is established with Dr Ignacio- appointment info printed and given to patient Patient to RTC in 3 month(s). Loy Kwon MD Allergies As of Date: 12/27/2023 Noted Allergy Reaction VICODIN (HYDROCODONE-ACETAMINOPH E*04/27/2009 5 - Intolerance Date Reviewed: 12/18/2023 Reviewed by: Ana Olvera RN - Fully Assessed Primary Visit Diagnosis:Atypical lobular hyperplasia (ALH) of left breast [N60.92] Other Visit Diagnosis:Malignant neoplasm of upper-outer quadrant of right breast in female, estrogen receptor positive (HCC) [C50.411, Z17.0] Prescriptions as of 12/27/2023 - cephALEXin (KEFLEX) 500 mg capsule Take 1 capsule by mouth three times a day for 10 days. - losartan (COZAAR) 25 mg tablet Take 1 tablet by mouth once daily. - pravastatin (PRAVACHOL) 40 mg tablet Take 1 tablet by mouth daily at bedtime. - amLODIPine (NORVASC) 2.5 mg tablet Take 1 tablet by mouth once daily. - nortriptyline (PAMELOR) 50 mg capsule TAKE ONE CAPSULE BY MOUTH EVERY DAY AT BEDTIME - gabapentin (NEURONTIN) 100 mg capsule Take 1 capsule by mouth daily at bedtime for 180 days. - potassium chloride (K-TAB) 10 mEq tablet Take 1 tablet by mouth daily with breakfast. On days she takes lasix - furosemide (LASIX) 20 mg tablet take 1 tablet by mouth every other day - >Zippered Compression Knee High 30-40 mm custom CUSTOM MEASURE FOR KNEE HIGH HO COMPRESSION STOCKINGS, 30-40 MM, WITH ZIPPERS PLEASE. IF UNABLE, PLEASE REFER TO [facility]UNG AT [facility]. DX: EDEMA - multivitamin tablet Take 1 tablet by mouth once daily. - Aspirin 81 mg Tab Take 81 mg by mouth once daily. - cholecalciferol (VITAMIN D3) 50 mcg (2,000 unit) tablet Take by mouth once daily. - CALCIUM 500 MG TAB Take 1500mg daily when she remebers - naproxen sodium(ALEVE 220 MG TAB) Take one(1) tablet twice daily.as necessary Problem List As Of Date 12/27/2023 Noted Resolved PAIN IN LIMB [M79.609] Iron deficiency anemia [D50.9] PURE HYPERCHOLESTEROLEM [E78.00] Anxiety state [F41.1] Urinary tract infection, site not specified [N3* 12/30/2015 Osteopenia [M85.80] 05/02/2005 LIPOMA SKIN NEC [D17.39] 05/02/2005 ESOPHAGEAL REFLUX [K21.9] 05/02/2005 PAIN ABDOMEN( Right Upper Quadrant) [R10.11] 07/16/2007 GASTRITIS ANTRAL( W/O Hemorrhage) [K29.60] 07/27/2007 ACUTE GASTRITIS W/O HEMORRHAGE [K29.00] 07/27/2007 CHOLECYSTITIS SEE ALSO GALLBLADDER CHRONIC [K*08/13/2007 Dysuria [R30.0] 08/16/2007 06/27/2014 MULTINODULAR GOITER (NONTOXIC) [E04.2] 10/30/2008 Hot flash, menopausal [N95.1] 06/21/2011 06/27/2014 PHN (postherpetic neuralgia) [B02.29] 02/06/2012 Postherpetic neuralgia [B02.29] 06/14/2012 06/27/2014 Pinched nerve in neck [G58.9] 01/31/2018 Hot flashes [R23.2] 09/21/2018 Essential hypertension [I10] 04/14/2022 Pain of left hip joint [M25.552] 07/19/2022 Murmur, cardiac [R01.1] 08/25/2016 History of cerebral infarction [Z86.73] 12/08/2023 VHD (valvular heart disease) [I38] 12/15/2023 Encounter Status:Closed by LOY KWON on 12/27/23 Normal [facility] CNCOon 12-26-2023 CNCO Letter Text Normal [facility] CNPNon 12-19-2023 CNPN Telephone (BRBD) -------- ALBERTO RODRIGUEZ ([id number]) 1935 F Date Time Provider Department 12/19/23 [facility] During your visit today, we recorded the following information about you: Nuris Alegria RN 12/19/2023 9:24 AM Signed Post op check in. Left message to return call Nuris Alegria RN 12/19/2023 10:25 AM Signed Returned call to Alberto Slight pain relieved with medication Drain output last night 40cc So far today 20 cc pale red Denies any redness, or bruising Denies any questions or concerns Allergies As of Date: 12/19/2023 Noted Allergy Reaction VICODIN (HYDROCODONE-ACETAMINOPH E*04/27/2009 5 - Intolerance Date Reviewed: 12/18/2023 Reviewed by: Ana Olvera RN - Fully Assessed Reason for Visit: Post Op [174] Prescriptions as of 12/19/2023 - cephALEXin (KEFLEX) 500 mg capsule Take 1 capsule by mouth three times a day for 10 days. - HYDROcodone-acetaminophe n (NORCO) 5-325 mg per tablet Take 1 tablet by mouth every 8 hours as needed for pain for up to 3 days. - losartan (COZAAR) 25 mg tablet Take 1 tablet by mouth once daily. - pravastatin (PRAVACHOL) 40 mg tablet Take 1 tablet by mouth daily at bedtime. - amLODIPine (NORVASC) 2.5 mg tablet Take 1 tablet by mouth once daily. - nortriptyline (PAMELOR) 50 mg capsule TAKE ONE CAPSULE BY MOUTH EVERY DAY AT BEDTIME - gabapentin (NEURONTIN) 100 mg capsule Take 1 capsule by mouth daily at bedtime for 180 days. - potassium chloride (K-TAB) 10 mEq tablet Take 1 tablet by mouth daily with breakfast. On days she takes lasix - furosemide (LASIX) 20 mg tablet take 1 tablet by mouth every other day - >Zippered Compression Knee High 30-40 mm custom CUSTOM MEASURE FOR KNEE HIGH HO COMPRESSION STOCKINGS, 30-40 MM, WITH ZIPPERS PLEASE. IF UNABLE, PLEASE REFER TO [facility] AT [facility]. DX: EDEMA - multivitamin tablet Take 1 tablet by mouth once daily. - Aspirin 81 mg Tab Take 81 mg by mouth once daily. - cholecalciferol (VITAMIN D3) 50 mcg (2,000 unit) tablet Take by mouth once daily. - CALCIUM 500 MG TAB Take 1500mg daily when she remebers - naproxen sodium(ALEVE 220 MG TAB) Take one(1) tablet twice daily.as necessary Problem List As Of Date 12/19/2023 Noted Resolved PAIN IN LIMB [M79.609] Iron deficiency anemia [D50.9] PURE HYPERCHOLESTEROLEM [E78.00] Anxiety state [F41.1] Urinary tract infection, site not specified [N3* 12/30/2015 Osteopenia [M85.80] 05/02/2005 LIPOMA SKIN NEC [D17.39] 05/02/2005 ESOPHAGEAL REFLUX [K21.9] 05/02/2005 PAIN ABDOMEN( Right Upper Quadrant) [R10.11] 07/16/2007 GASTRITIS ANTRAL( W/O Hemorrhage) [K29.60] 07/27/2007 ACUTE GASTRITIS W/O HEMORRHAGE [K29.00] 07/27/2007 CHOLECYSTITIS SEE ALSO GALLBLADDER CHRONIC [K*08/13/2007 Dysuria [R30.0] 08/16/2007 06/27/2014 MULTINODULAR GOITER (NONTOXIC) [E04.2] 10/30/2008 Hot flash, menopausal [N95.1] 06/21/2011 06/27/2014 PHN (postherpetic neuralgia) [B02.29] 02/06/2012 Postherpetic neuralgia [B02.29] 06/14/2012 06/27/2014 Pinched nerve in neck [G58.9] 01/31/2018 Hot flashes [R23.2] 09/21/2018 Essential hypertension [I10] 04/14/2022 Pain of left hip joint [M25.552] 07/19/2022 Murmur, cardiac [R01.1] 08/25/2016 History of cerebral infarction [Z86.73] 12/08/2023 VHD (valvular heart disease) [I38] 12/15/2023 Encounter Status:Closed by NURIS ALEGRIA on 12/19/23 [facility] [id number] 12-18-2023 [id number] HNO ID: [id number] Author: ANA OLVERA RN Service: ? Author Type: Registered Nurse Type: [id number] Filed: 12/18/2023 10:36 Note Text: You received 1000 mg tylenol/acetaminophen at 7:30 am. Next dose due at 1:30 pm if needed for pain. The maximum amount of tylenol/acetaminophen that you may take in a 24 hour time period is 4235-7651 mg. Please leave the blue/green arm band on your wrist for the next 96 hours. It alerts all caregivers that you may come in contact with, that you received a local anesthetic medication today called exparel. If you would need to receive any further local anesthetic in the next 4 days, health managed care specialist would need to administer any further local anesthetic medication to you with extreme caution. Please be aware that your urine may blue to green in color for the next 1-2 days from the dye injection that you received. Normal [facility] ANES POSTPROC EVALon 024 ANES POSTPROC EVAL HNO ID: [id number] Author: BREANNA GRAVES MD Service: Anesthesiology Author Type: Anesthesiologist Type: Anesthesia Postprocedure Evaluation Filed: 12/18/2023 13:04 Note Text: POST ANESTHESIA EVALUATION NOTE : 1935 Procedure Summary Date: 12/18/23 Room / Location: [address] Anesthesia Start: 833 Anesthesia Stop: 1016 Procedures: MASTECTOMY SIMPLE (Right: Breast) INTRAOPERATIVE ID OF SENTINEL LYMPH NODE(S) INCL'D INJECTION OF NON-RAD DYE WHEN PERFORMED (Right: Axilla) BIOPSY NODE AXILLARY (Right: Axilla) EXCISION BREAST LESION IDENTIFIED BY PREOPERATIVE PLACEMENT RADIOLOGICAL MARKER, OPEN, SINGLE LESION (Left: Breast) Diagnosis: Malignant neoplasm of upper-outer quadrant of right breast in female, estrogen receptor positive (HCC) Atypical lobular hyperplasia (ALH) of left breast (Malignant neoplasm of upper-outer quadrant of right breast in female, estrogen receptor positive (HCC) [C50.411, Z17.0]) (Atypical lobular hyperplasia (ALH) of left breast [N60.92]) Surgeons: Loy Kwon MD Responsible Provider: Breanna Graves MD Anesthesia Type: general ASA Status: 3 Anesthesia Type: general Airway Type: LMA Last Vitals Vitals Value Taken Time BP 137/68 12/18/23 1243 Temp 36.7 ?C (98.1 ?F) 12/18/23 1240 HR SpO2 85 12/18/23 1243 Resp 18 12/18/23 1240 SpO2 97 % 12/18/23 1243 Vitals shown include unfiled device data. Post Anesthesia Patient Status Patient Evaluation: PACU. PACU/ICU Patient Condition: stable. Anticipated Disposition: phase 2 then home. Neurological Status: aware and responsive. Pulmonary Status: breathing comfortably on room air Airway Control: returned to baseline unsupported. Cardiovascular Status: stable. Pain Management: clinically adequate Postoperative Hydration: acceptable. Intraoperative Events: no significant anesthesia events Post Operative Nausea/Vomiting Status: no significant post operative nausea or vomiting Recommendation: continue current plan of care. Anesthesia Observations No Documentation SIGNATURE: Breanna Graves MD PATIENT NAME: Alberto Rodriguez DATE: December 18, 2023 TIME: 1:04 PM CSN: [id number] Normal [facility] ANES PRE-OPon 12-18-2023 ANES PRE-OP HNO ID: [id number] Author: BREANNA GRAVES MD Service: Anesthesiology Author Type: Anesthesiologist Type: Anesthesia Preprocedure Evaluation Filed: 12/18/2023 09:02 Note Text: ANESTHESIOLOGY DAY OF SURGERY NOTE : 1935 Procedure Information Date/Time: 12/18/23 0830 Procedures: MASTECTOMY SIMPLE (Right: Breast) INTRAOPERATIVE ID OF SENTINEL LYMPH NODE(S) INCL'D INJECTION OF NON-RAD DYE WHEN PERFORMED (Right: Axilla) BIOPSY NODE AXILLARY (Right: Axilla) EXCISION BREAST LESION IDENTIFIED BY PREOPERATIVE PLACEMENT RADIOLOGICAL MARKER, OPEN, SINGLE LESION (Left: Breast) Location: [address] Surgeons: Loy Kwon MD Estimated body mass index is 25.83 kg/m? as calculated from the following: Height as of 12/08/23: 152.4 cm (5'). Weight as of this encounter: 60 kg (132 lb 4.4 oz). Most recent hematocrit and potassium results: Hematocrit 36.1 12/08/2023 Potassium 4.3 12/08/2023 ECHO 2023:CONCLUSIONS: - Technically difficult exam due to body habitus. - Exam indication: Baseline and serial evaluation in a patient undergoing therapy with cardiotoxic agents - The left ventricle is normal in size. Left ventricular systolic function is normal. EF = 58 ? 5% (2D biplane) Grade I left ventricular diastolic dysfunction. - The right ventricle is normal in size. Right ventricular systolic function is normal. - 1-2+ mitral regurgitation - 1-2+ tricuspid regurgitation - 1+ pulmonic regurgitation - Exam was compared with the prior echocardiographic exam performed on 12/28/2018. Prior EF was reported to be 61%. Relevant Problems CARDIO (+) Essential hypertension (+) Hot flashes (+) Murmur, cardiac GI (+) Esophageal reflux NEURO-PSYCH (+) History of cerebral infarction I - PHYSICAL EVALUATION AIRWAY Patient intubated: No. Tracheostomy tube not present Mallampati: II. TM distance: >3 FB. Neck ROM: full ROM without neurological symptoms. Mouth opening: adequate. Short neck: no. Thick neck: no DENTAL Dentures, upper: complete. Additional comments: Dentures are glued in place. She does not remove them. Additional exam findings: yes. CARDIOVASCULAR Rhythm: regular Rate: normal PULMONARY Breath sounds clear to auscultation. II - ANESTHESIA PLAN ASA Score: 3 Anesthetic Plan: general Airway type: LMA NPO Status: adequate Beta Raymundo Monitoring Plan Monitoring plan: standard ASA. Post Procedure Analgesic Plan Postoperative analgesic plan: multimodal analgesia. Informed Consent Anesthetic risks, benefits, alternatives, personnel and consent discussed: yes. Patient / Responsible Libertarian agrees to proceed: yes Patient / Surrogate agrees to blood products: blood products not planned Significant changes in the patient condition since the History and Physical, not otherwise documented in primary service progress note: no. Potential Anesthesia issues that may suggest increased risk of complications or contraindication to planned procedure: none. Vitals Value Taken Time BP 131/64 12/18/23 0728 Pulse 82 12/18/23 0728 Resp 16 12/18/23 0728 Temp 36.4 ?C (97.5 ?F) 12/18/23 0728 SpO2 97 % 12/18/23 0728 Facility-Administered Medications as of 12/18/2023 Medication Dose Route Frequency lidocaine (PF) 10 mg/mL (1 %) 1-2 mg injection (XYLOCAINE) 0.1-0.2 mL INTRADERMAL PRN lactated ringers iv infusion 5-30 mL/hr INTRAVENOUS CONTINUOUS NaCl 0.9% iv flush bag 20 mL INTRAVENOUS PRN ceFAZolin 2 g in dextrose (iso-osmotic) 50 mL (ANCEF,KEFZOL) 2 g INTRAVENOUS Pre-Op Once [COMPLETED] acetaminophen 1,000 mg tab(s) (TYLENOL) 1,000 mg ORAL Pre-Op Once Outpatient Medications as of 12/18/2023 Medication Sig gabapentin (NEURONTIN) 100 mg capsule Take 1 capsule by mouth daily at bedtime for 180 days. potassium chloride (K-TAB) 10 mEq tablet Take 1 tablet by mouth daily with breakfast. On days she takes lasix furosemide (LASIX) 20 mg tablet take 1 tablet by mouth every other day >Zippered Compression Knee High 30-40 mm custom CUSTOM MEASURE FOR KNEE HIGH HO COMPRESSION STOCKINGS, 30-40 MM, WITH ZIPPERS PLEASE. IF UNABLE, PLEASE REFER TO CHUNG AT [facility]. DX: EDEMA multivitamin tablet Take 1 tablet by mouth once daily. Aspirin 81 mg Tab Take 81 mg by mouth once daily. cholecalciferol (VITAMIN D3) 50 mcg (2,000 unit) tablet Take by mouth once daily. CALCIUM 500 MG TAB Take 1500mg daily when she remebers naproxen sodium(ALEVE 220 MG TAB) Take one(1) tablet twice daily.as necessary I have interviewed and examined the patient. I have reviewed the medical record and/or the pre-anesthesia evaluation, pertinent labs, and test results. This contains updated information obtained within 48 hours of Surgery/Procedure. SIGNATURE: Breanna Graves MD PATIENT NAME: Alberto Rodriguez DATE: December 18, 2023 TIME: 7:48 AM CSN: [id number] Normal [facility] BREAST MARKERSon 12-18-2023 AP BIOMARKER DISCLAIMER Normal [facility] Comment on above: Order Comment: Speci men Type: TISSUE SPECIMENOrdering Facility: [facility] Address: [address] [place] [address] Result Comment: Estrella maldonado Developed Test (LDT) Disclaimer: Performance characteristics of immunohistochemical, immunofluorescent and chromogenic in-situ hybridization tests have been determined by the performing laboratory within [facility]s Dulce Vasquez Pathology and Laboratory Medicine Department ([facility], [facility], [facility], [facility], [facility], [facility], or [facility]) in a manner consistent with CLIA requirements. One or more of these tests have not been cleared or approved by the FDA. [facility] is regulated under CLIA as qualified to perform high-complexity testing. These tests are used for clinical purposes. They should not be regarded as investigational or for research. Positive and negative controls stain appropriately. Performed By: #### L [id number] ####[facility] [id number] [place] [address] [place]#### S ####[facility] [id number] [address] LABIA [id number] [place] [address] [place] AP BLOCK ID [id number] Normal [facility] Comment on above: Order Comment: Speci men Type: TISSUE SPECIMENOrdering Facility: [facility] Address: [address] [place] [address] Performed By: #### L [id number] ####[facility]CLIA [id number] [place] [address] [place]#### S ####[facility]CLIA [id number] [address] [facility] [id number] [address] [place] ASCP/CAP GUIDELINES FOR FIXATION Yes Normal [facility] Comment on above: Order Comment: Speci men Type: TISSUE SPECIMENOrdering Facility: [facility] Address: [address] [place] [address] Performed By: #### L [id number] ####[facility]CLIA [id number] [place] [address] [place]#### S ####[facility] [id number] [address] LABCLIA [id number] [place] [address] [place] BIOMARKER INTERPRETATION COMMENT AND REFERENCE RANGE Normal [facility] Comment on above: Order Comment: Speci men Type: TISSUE SPECIMENOrdering Facility: [facility] Address: [address] [place] [address] Result Comment: Refe rence Range for Hormone Receptors: Staining for [place] of greater than or equal to 1% of the tumor cells is considered positive. Staining for ER of 1-10% of the tumor cells is considered low positive. Staining for ER of greater than 10% of the tumor cells is considered positive. Staining for ER or [place] of less than 1% is considered negative. Reference Ranges for HER2 Immunohistochemistry: Positive (3+): Complete, intense circumferential membrane staining in greater than 10% of tumor cells. Equivocal (2+): Weak to moderate complete membrane staining observed in greater than 10% of tumor cells. Negative (1+): Incomplete, faint membrane staining in greater than 10% of tumor cells. Negative (0): No staining or incomplete faint membrane staining in less than or equal to 10% of tumor cells. Interpretation Comments: Consideration of follow-up testing for HER2 (ERBB2) status by fluorescence in situ hybridization (FISH) for all equivocal (2+) results is recommended and will be ordered as a reflex test if FISH was not a testing methodology already employed. Note for ER low results. For malignancy with a low level (1%-10%) of ER expression by immunohistochemistry, there are limited data on the overall benefit of endocrine therapies for a patient with low level (1%-10%) ER expression, but they currently suggest possible benefits, so patients are considered eligible for endocrine treatment. Some data indicate that invasive cancers with these results are heterogeneous in behavior and biology and often have gene expression profiles more similar to ER-negative cancers. Performed By: #### L [id number] ####[facility] [id number] [place] [id number] [place]#### S ####[facility] [id number] [place] [id number] [place] [facility] LABCLIA [id number] [address] [place] BIOMARKER METHOD Normal [facility] Comment on above: Order Comment: Speci men Type: TISSUE SPECIMENOrdering Facility: [facility] Address: [address] [place] [address] Result Comment: Estr ogen Receptor: Food and Drug Administration (FDA) [place]: [place] Primary Antibody: SP1 Progesterone Receptor: FDA cleared: [place] Primary Antibody: IE2 HER2 (ERBB2) by IHC: FDA cleared: [place] Primary Antibody:4B5 The hormone receptor tests were performed and reported in accordance with the guidelines approved by the [place] Society of Clinical Oncologists and the College of [place] Pathologists. Yeny TIM, et al. Estrogen and Progesterone Receptor Testing in Breast Cancer: [place] Society of Clinical Oncologists and the College of [place] Pathologists Guideline Update. Arch Pathol Lab Med. 2019;144(5):545-563. PMID: [id number]. The hormone receptor assays have been internally validated on decalcified tissues (for [facility] only). Estrogen and progesterone receptor results are valid if tissue was processed according to ASCO/CAP guidelines. Antibody and Detection System: Elbe's Pathway anti-HER2 rabbit monoclonal antibody (clone 4B5), Elbe Confirm anti-estrogen receptor rabbit monoclonal antibody (clone SP1) and Elbe anti-progesterone receptor rabbit monoclonal antibody (clone IE2) detected with the FileString UltraView Univeral DAB Detection Kit (indirect biotin-free detection), [place], [place], [place]. Control Slides: Cell line controls with high, equivocal, low, and negative HER2 protein expression, along with known positive control tissue and the patient's tissue, are evaluated for HER2 expression. The HER2 immunohistochemistry assay was developed, validated, scored, and reported in accordance with the guidelines approved by the [place] Society of Clinical Oncologists and the College of [place] Pathologists. Faith ABRAHAM et al. Arch Pathol Lab Med. 2018;1379(9) The HER2 assay has not been validated on decalcified tissues. Given the possibility of false negative results on decalcified specimens, results should be interpreted with caution. Performed By: #### L [id number] ####[facility]CLIA [id number] [place] [address] [place]#### S ####[facility] [id number] [address] [address] [facility] LABCLIA [id number] [place] [id number] [place] BREAST TUMOR GRADE Grade 1 Normal [facility] Comment on above: Order Comment: Speci men Type: TISSUE SPECIMENOrdering Facility: [facility] Address: [address] [place] [id number] Performed By: #### L [id number] ####[facility]CLIA [id number] [place] [id number] [place]#### S ####[facility]CL[facility] [id number] [address] LABIA [id number] [place] [id number] [place] [facility] CASE NUMBER INVASIVE [id number] Normal [facility] Comment on above: Order Comment: Speci men Type: TISSUE SPECIMENOrdering Facility: [facility] Address: [address] [place] [id number] Performed By: #### L [id number] ####[facility] LABCLIA [id number] [place] [id number] [place]#### S ####[facility]CL[facility] [id number] [place] [address] [facility] LABCLIA [id number] [place] [id number] [place] COLD ISCHEMIA TIME <1 Hour Normal [facility] Comment on above: Order Comment: Speci men Type: TISSUE SPECIMENOrdering Facility: [facility] Address: [address] [place] [id number] Performed By: #### L [id number] ####[facility]CL[facility] [id number] [place] [id number] [place]#### S ####[facility] LABCLIA [id number] [place] [address] [facility] LABCLIA [id number] [place] [id number] [place] ESTROGEN RECEPTOR (% TUMOR STAINING) >95 Normal [facility] Comment on above: Order Comment: Speci men Type: TISSUE SPECIMENOrdering Facility: [facility] Address: [address] [place], [place] [address] Performed By: #### L [id number] ####[facility]CLIA [id number] [place] [address] [place]#### S ####[facility]CL[facility] [id number] [address] LABIA [id number] [place] [address] [place] ESTROGEN RECEPTOR (STAINING INTENSITY) Strong Normal [facility] Comment on above: Order Comment: Speci men Type: TISSUE SPECIMENOrdering Facility: [facility] Address: [address] [place], [place] [address] Performed By: #### L [id number] ####[facility]CL[facility] [id number] [place] [id number] [place]#### S ####[facility]CLIA [id number] [place] [address] [facility] LABCLIA [id number] [place] [id number] [place] ESTROGEN RECEPTOR EXTERNAL CONTROL Present and Stained as Expected Normal [facility] Comment on above: Order Comment: Speci men Type: TISSUE SPECIMENOrdering Facility: [facility] Address: [address] [place], [place] [address] Performed By: #### L [id number] ####[facility]CLIA [id number] [place] [address] [place]#### S ####[facility]CLIA [id number] [place] [id number] [facility] LABCLIA [id number] [place] [id number] [place] ESTROGEN RECEPTOR INTERNAL CONTROL Present and Stained as Expected Normal [facility] Comment on above: Order Comment: Speci men Type: TISSUE SPECIMENOrdering Facility: [facility] Address: [address] [place] [address] Performed By: #### L [id number] ####[facility]CLIA [id number] [place] [address] [place]#### S ####[facility]CL[facility] [id number] [address] LABCLIA [id number] [place] [address] [place] ESTROGEN RECEPTOR STATUS (INVASIVE) Positive Normal [facility] Comment on above: Order Comment: Speci men Type: TISSUE SPECIMENOrdering Facility: [facility] Address: [address] [place] [address] Performed By: #### L [id number] ####[facility]CLIA [id number] [place] [address] [place]#### S ####[facility]CLIA [id number] [place] [address] [facility] LABCLIA [id number] [place] [id number] [place] FINAL PERFORMING LAB Normal [facility] Comment on above: Order Comment: Speci men Type: TISSUE SPECIMENOrdering Facility: [facility] Address: [address] [place], [place] [address] Result Comment: Diag nostic interpretation performed at: [facility], [address] [place] [id number] CLIA# [id number] [place] Supervisor: Tavo Roberts MD Electronically signed out by: Jerry Cheung MD Performed By: #### L [id number] ####[facility]CLIA [id number] [place] [id number] [place]#### S ####[facility]CL[facility] [id number] [place] [address] [facility] LABCLIA [id number] [place] [address] [place] FIXATIVE Formalin, 10% Neutra l Buffered Normal [facility] Comment on above: Order Comment: Speci men Type: TISSUE SPECIMENOrdering Facility: [facility] Address: [address] [place], [place] [address] Performed By: #### L [id number] ####[facility]CLIA [id number] [place] [id number] [place]#### S ####[facility]CL[facility] [id number] [address] LABCLIA [id number] [place] [address] [place] HER2 SCORE 1+ Normal [facility] Comment on above: Order Comment: Speci men Type: TISSUE SPECIMENOrdering Facility: [facility] Address: [address] [place], [place] [address] Performed By: #### L [id number] ####[facility]CLIA [id number] [place] [id number] [place]#### S ####[facility] LABCLIA [id number] [place] [address] [facility] LABCLIA [id number] [place] [id number] [place] HER2 STATUS (INVASIVE) Negative Normal [facility] Comment on above: Order Comment: Speci men Type: TISSUE SPECIMENOrdering Facility: [facility] Address: [address] [place] [address] Performed By: #### L [id number] ####[facility] LABCLIA [id number] [place] [address] [place]#### S ####[facility]CLIA [id number] [address] LABIA [id number] [place] [address] [place] PROGESTERONE RECEPTOR (% TUMOR STAINING) >95 Normal [facility] Comment on above: Order Comment: Speci men Type: TISSUE SPECIMENOrdering Facility: [facility] Address: [address] [place] [address] Performed By: #### L [id number] ####[facility] LABCLIA [id number] [place] [address] [place]#### S ####[facility]CL[facility] [id number] [address] LABIA [id number] [place] [address] [place] PROGESTERONE RECEPTOR (STAINING INTENSITY) Strong Normal [facility] Comment on above: Order Comment: Speci men Type: TISSUE SPECIMENOrdering Facility: [facility] Address: [address] [place], [place] [address] Performed By: #### L [id number] ####[facility]CLIA [id number] [place] [address] [place]#### S ####[facility]CLIA [id number] [place] [address] [facility] LABCLIA [id number] [place] [id number] [place] PROGESTERONE RECEPTOR EXTERNAL CONTROL Present and Stained as Expected Normal [facility] Comment on above: Order Comment: Speci men Type: TISSUE SPECIMENOrdering Facility: [facility] Address: [address] [place] [id number] Performed By: #### L [id number] ####[facility] LABCLIA [id number] [place] [id number] [place]#### S ####[facility] LABCLIA [id number] [place] [address] [facility] LABIA [id number] [place] [id number] [place] PROGESTERONE RECEPTOR INTERNAL CONTROL Present and Stained as Expected Normal [facility] Comment on above: Order Comment: Speci men Type: TISSUE SPECIMENOrdering Facility: [facility] Address: [address] [place], [place] [address] Performed By: #### L [id number] ####[facility]CLIA [id number] [place] [id number] [place]#### S ####[facility]CLIA [id number] [place] [address] [facility] LABCLIA [id number] [place] [id number] [place] PROGESTERONE RECEPTOR STATUS (INVASIVE) Positive Normal [facility] Comment on above: Order Comment: Speci men Type: TISSUE SPECIMENOrdering Facility: [facility] Address: [address] [place] [id number] Performed By: #### L [id number] ####[facility] [facility] LABCLIA [id number] [address] [address] [place]#### S ####[facility] LABCLIA [id number] [address] [address] [facility] LABCLIA [id number] [place] [id number] [place] TOTAL FIXATION TIME >6 and <72 Hours Normal [facility] Comment on above: Order Comment: Speci men Type: TISSUE SPECIMENOrdering Facility: [facility] Address: [address] [id number] Performed By: #### L [id number] ####[facility] LABCLIA [id number] [place] [address] [place]#### S ####[facility] LABCLIA [id number] [address] LABIA [id number] [place] [address] [place] TUMOR 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 Normal [facility] Comment on above: Order Comment: Speci men Type: TISSUE SPECIMENOrdering Facility: [facility] Address: [address] [place], [place] [id number] Performed By: #### L [id number] ####[facility] LABCLIA [id number] [place] [address] [place]#### S ####[facility] LABCLIA [id number] [address] LABCLIA [id number] [place] [id number] [place] WAS SPECIMEN DECALCIFIED No Normal [facility] Comment on above: Order Comment: Speci men Type: TISSUE SPECIMENOrdering Facility: [facility] Address: [facility] [place] [id number] Performed By: #### L [id number] ####[facility] LABCLIA [id number] [place] [address] [place]#### S ####[facility] LABCLIA [id number] [facility] [id number] [id number] [facility] LABCLIA [id number] [address] SURGICAL BREAST SPECIMEN LTon 12-18-2023 [facility] SURGICAL BREAST SPECIMEN LT * * *Final Report* * * DATE OF EXAM: Dec 18 2023 9:09AM [facility] 0638 - [facility] SURGICAL BREAST SPECIMEN LT / PROCEDURE REASON: surgical specimen * * * * Physician Interpretation * * * * [address] [place] [address] HISTORY: Left Specimen Radiograph CORRELATION: 12/13/2023 (mammogram) and 12/13/2023. FINDINGS: A single image of the surgical specimen demonstrates a Q clip and Jazmyn localizer in the specimen. IMPRESSION: SPECIMEN SUMMARY: Specimen results were discussed with Dr. Kwon in the OR by Dr. Kuhn on 12/18/2023 at 915am. Interpreting Radiologist: Ismael Kuhn M.D. Executive Assistant: ALBA Transcribe Date/Time: Dec 18 2023 9:05A Dictated by : ISMAEL KUHN MD This examination was interpreted and the report reviewed and electronically signed by: ISMAEL KUHN MD on Dec 18 2023 9:16AM EST [id number] Normal [facility] SURGICAL BREAST SPECIMEN RTon 12-18-2023 [facility] SURGICAL BREAST SPECIMEN RT * * *Final Report* * * DATE OF EXAM: Dec 18 2023 9:39AM [facility] 0639 - [facility] SURGICAL BREAST SPECIMEN RT / PROCEDURE REASON: right surgical specimen * * * * Physician Interpretation * * * * [facility] [address] [facility] [address] [place], [place] [id number] HISTORY: Right Specimen Radiograph CORRELATION: A single image of the mastectomy specimen demonstrates twos and Specimen demonstrates calcifications associated with a buckle clip as well as a Top-Hat clip. Surgical clips are also identified. The nipple is included in the specimen. In the specimen. IMPRESSION: SPECIMEN A single image of the mastectomy specimen demonstrates calcifications associated with a buckle clip as well as a Top-Hat clip. Surgical clips are also identified. The nipple is included in the specimen. In the specimen. SUMMARY: Urgent Results: Additional images confirmed that the target was contained in the specimen radiograph. The results of the specimen radiograph were discussed with Dr. Dr. Loy Kwon in the O.R. On 12/18/2023 at 0941. Interpreting Radiologist: Leonie Pascual M.D. Executive Assistant: ALBA Transcribe Date/Time: Dec 18 2023 9:37A Dictated by : LEONIE PASCUAL MD This examination was interpreted and the report reviewed and electronically signed by: LEONIE PASCUAL MD on Dec 18 2023 9:49AM EST [id number] Normal [facility] MG Breast specimen - left Vi ewson 12-18-2023 IMPRESSION: SPECIMEN SUMMARY: Specimen results were discussed with Dr. Kwon in the OR by Dr. Kuhn on 12/18/2023 at 915am. Interpreting Radiologist: Ismael Kuhn M.D. Executive Assistant: ALBA Transcribe Date/Time: Dec 18 2023 9:05A Dictated by : ISMAEL KUHN MD This examination was interpreted and the report reviewed and electronically signed by: ISMAEL KUHN MD on Dec 18 2023 9:16AM EST DIVISION OF RADIOLOGY * * *Final Report* * * DATE OF EXAM: Dec 18 2023 9:09AM [facility] 0638 - [facility] SURGICAL BREAST SPECIMEN LT / PROCEDURE REASON: surgical specimen * * * * Physician Interpretation * * * * [place] [address] HISTORY: Left Specimen Radiograph CORRELATION: 12/13/2023 (mammogram) and 12/13/2023. FINDINGS: A single image of the surgical specimen demonstrates a Q clip and Jazmyn localizer in the specimen. DIVISION OF RADIOLOGY Provider, [facility] - 12/18/2023 * * *Final Report* * * DATE OF EXAM: Dec 18 2023 9:09AM [facility] 0638 - [facility] SURGICAL BREAST SPECIMEN LT / PROCEDURE REASON: surgical specimen * * * * Physician Interpretation * * * * [address] [place] [address] HISTORY: Left Specimen Radiograph CORRELATION: 12/13/2023 (mammogram) and 12/13/2023. FINDINGS: A single image of the surgical specimen demonstrates a Q clip and Jazmyn localizer in the specimen. IMPRESSION IMPRESSION: SPECIMEN SUMMARY: Specimen results were discussed with Dr. Kwon in the OR by Dr. Kuhn on 12/18/2023 at 915am. Interpreting Radiologist: Ismael Kuhn M.D. Executive Assistant: ALBA Transcritawanna Date/Time: Dec 18 2023 9:05A Dictated by : ISMAEL KUHN MD This examination was interpreted and the report reviewed and electronically signed by: ISMAEL KUHN MD on Dec 18 2023 9:16AM EST [facility] Radiology Study observation (narrative) [facility] Breast specimen - left Vi ewsOrdered By: [facility] Provider on 12-18-2023 [facility] Breast specimen - right V iewson 12-18-2023 IMPRESSION: SPECIMEN A single image of the mastectomy specimen demonstrates calcifications associated with a buckle clip as well as a Top-Hat clip. Surgical clips are also identified. The nipple is included in the specimen. In the specimen. SUMMARY: Urgent Results: Additional images confirmed that the target was contained in the specimen radiograph. The results of the specimen radiograph were discussed with Dr. Dr. Loy Kwon in the O.R. On 12/18/2023 at 0941. Interpreting Radiologist: Leonie Pascual M.D. Executive Assistant: ALBA Transcritawanna Date/Time: Dec 18 2023 9:37A Dictated by : LEONIE PASCUAL MD This examination was interpreted and the report reviewed and electronically signed by: LEONIE PASCUAL MD on Dec 18 2023 9:49AM EST DIVISION OF RADIOLOGY * * *Final Report* * * DATE OF EXAM: Dec 18 2023 9:39AM [facility] 0639 - [facility] SURGICAL BREAST SPECIMEN RT / PROCEDURE REASON: right surgical specimen * * * * Physician Interpretation * * * * [facility] [address] [facility] [address] [place], [place] [id number] HISTORY: Right Specimen Radiograph CORRELATION: A single image of the mastectomy specimen demonstrates twos and Specimen demonstrates calcifications associated with a buckle clip as well as a Top-Hat clip. Surgical clips are also identified. The nipple is included in the specimen. In the specimen. DIVISION OF RADIOLOGY Provider, Gilda Santiago - 12/18/2023 * * *Final Report* * * DATE OF EXAM: Dec 18 2023 9:39AM [facility] 0639 - [facility] SURGICAL BREAST SPECIMEN RT / PROCEDURE REASON: right surgical specimen * * * * Physician Interpretation * * * * [facility] [address] [facility] [address] [place] [address] HISTORY: Right Specimen Radiograph CORRELATION: A single image of the mastectomy specimen demonstrates twos and Specimen demonstrates calcifications associated with a buckle clip as well as a Top-Hat clip. Surgical clips are also identified. The nipple is included in the specimen. In the specimen. IMPRESSION IMPRESSION: SPECIMEN A single image of the mastectomy specimen demonstrates calcifications associated with a buckle clip as well as a Top-Hat clip. Surgical clips are also identified. The nipple is included in the specimen. In the specimen. SUMMARY: Urgent Results: Additional images confirmed that the target was contained in the specimen radiograph. The results of the specimen radiograph were discussed with Dr. Dr. Loy Kwon in the O.R. On 12/18/2023 at 0941. Interpreting Radiologist: Leonie Pascual M.D. Executive Assistant: [email or web address] Transcribe Date/Time: Dec 18 2023 9:37A Dictated by : LEONIE PASCUAL MD This examination was interpreted and the report reviewed and electronically signed by: LEONIE PASCUAL MD on Dec 18 2023 9:49AM EST [facility] Radiology Study observation (narrative) [facility] NURSING PROGon 12-18-2023 NURSING PROG HNO ID: [id number] Author: ANA OLVERA RN Service: ? Author Type: Registered Nurse Type: Nursing Progress Note Filed: 12/18/2023 12:31 Note Text: Extensive CONOR teaching completed with pt. And friend. Pt. Up to restroom to void with 1 RN assist. Pt. Steady on feet. Pt. Nauseated upon returning to bed. Cold washcloth applied to forehead and will call Dr. Graves for additional zofran order IV. Normal [facility] OPERATIVE NOon 12-18-2023 OPERATIVE NO HNO ID: [id number] Author: LOY KWON MD Service: General Surgery Author Type: Physician Type: Operative Report Filed: 12/19/2023 07:10 Note Text: [facility] - Operative Report [address] [address] [place] ALBERT[place] RODRIGUEZ Eddie : 1935 AGE: 88. 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 CSN NUMBER: [id number] DATE OF SURGERY/PROCEDURE: 12/18/2023 INCISION/PROCEDURE START TIME: 8:52 AM INCISION CLOSE/PROCEDURE END TIME: 9:56 AM PREOPERATIVE DIAGNOSIS: Abnormal left mammogram and right breast cancer. POSTOPERATIVE DIAGNOSIS: Abnormal left mammogram and right breast cancer. SURGEON: Loy Kwon M.D. GEOSCIENCES PROFESSOR: LORE Celestin. No qualified surgical residents are available. Jeff acted as surgical mortgage loan assistant in the capacity of retraction and exposure during the case. SURGERY/PROCEDURE: Left breast excisional biopsy, right mastectomy, lymphatic mapping, and sentinel node excision. ANESTHESIA: General via LMA. FLUIDS: Per record. ESTIMATED BLOOD LOSS: Less than 5 mL. SPECIMENS: Left breast excisional biopsy, right breast right sentinel node. OPERATIVE FINDINGS: [place] node was normal on intraoperative frozen section on the right side. DESCRIPTION OF PROCEDURE: The risks, benefits, and alternatives were discussed with the patient. Informed consent was obtained. An operative huddle was done. The patient was alert and oriented. Nursing, Anesthesia, and Surgical team at her bedside. The procedure was confirmed with both the patient and the entire operating room team. She was brought into the operating room and placed supine on operating table. General anesthesia was achieved. Blue dye was injected in the dermal plane in the subareolar location on the right breast. She was prepped and draped in the usual sterile fashion. Attention turned to the left breast. The lesion, which was located in the left breast superior aspect, an incision was made at the approximate 12 o'clock location of the left breast. Using the JAZMYN monitoring guide, the lesion was located, excised, oriented, and sent to Radiology. Please note, the specimen radiograph confirmed the targeted area contained the prior biopsy and reflector clip were centered within the specimen. Attention was then turned to the right breast. An elliptical skin incision was made. The superficial fascial envelope of the breast was identified. This plane was carried superiorly toward the clavicle below the inframammary fold, medially to the lateral border of the sternum, andlaterally to the pectoral minor muscle. The pectoral fascia was taken as a deep portion of the specimen. The clavipectoral fascia was incised lateral to the pectoral major muscle to expose the axillary contents without difficulty. The brightly blue- stained sentinel node was identified, excised, and passed off the field for frozen section. The right breast was imaged to confirm that the prior biopsy clips were indeed contained within the specimen and this was confirmed on specimen radiograph by Radiology that the 2 clips were within the specimen. The lymph node was returned as negative on intraoperative frozen section. Marcaine and Exparel solution was injected as a superficial rib bloc in the right and at the drain exit site on the right and than in the skin incision on the left. A #15 round drain was placed through a separate stab incision in the anterior axillary line on the right side and secured with a 3-0 nylon. Both skin incisions were then closed with interrupted 3-0 Vicryl, running 4-0 Monocryl, subcuticular pull-through. Skin glue and Steri-Strips applied. A chlorhexidine patch around the drain exit site, which was placed in the deep ended aspect of her mastectomy wound. She was extubated and brought to the recovery room in good condition. COUNTS: Needle, sponge, and instrument count reported as correct at the end of the case. Commission on Cancer - Standard 5.3: [place] Node Biopsy Synoptic Operative Reporting [place] Node Biopsy for Breast Cancer - Right Operation performed with curative intent. Yes Tracer(s) used to identify sentinel nodes in the upfront surgery (non-neoadjuvant) setting (select all that apply). Dye Tracer(s) used to identify sentinel nodes in the neoadjuvant setting (select all that apply). N/A All nodes (colored or non-colored) present at the end of a dye-filled lymphatic channel were removed. Yes All significantly radioactive nodes were removed. N/A All palpably suspicious nodes were removed. N/A Biopsy-proven positive nodes marked with clips prior to chemotherapy were identified and removed. N/A Loy Kwon M.D. AF:[id number] /[id number] Normal [facility] SURGICAL PATHOLOGYon 024 BLOCK FOR ADDITIONAL BIOMARKERS/MOLECULAR STUDIES C14 Normal [facility] Comment on above: Order Comment: Speci men Type: TISSUE SPECIMENOrdering Facility: [facility] Address: [address] [place] [address] Performed By: #### L [id number] ####[facility] LABCLIA [id number] [place] [address] [place]#### S ####[facility] LABCLIA [id number] [address] LABCLIA [id number] [address] [facility] CASE REPORT Normal [facility] Comment on above: Order Comment: [place] carbajal Type: TISSUE SPECIMENOrdering Facility: [facility] Address: [address] [place] [address] Result Comment: [facility] Pathology Report Case: [id number] Authorizing Provider: Loy Kwon MD Collected: 12/18/2023 08:56 AM Ordering Location: Ambulatory Surgery Received: 12/18/2023 09:20 AM Pathologist: Jerry Cheung MD Intraop: Dario Hammond MD Specimens: A) - Breast, Left, Excision of Lesion, suture olivera short superior, long lateral B) - Lymph Node, Right, Axillary C) - Breast, Right, Mastectomy, suture olivera short superior, long lateral Performed By: #### L [id number] ####[facility] LABCLIA [id number] [place] [address] [place]#### S ####[facility] LABCLIA [id number] [address] LABCLIA [id number] [address] CLINICAL HISTORY Normal [facility] Comment on above: Order Comment: Speci men Type: TISSUE SPECIMENOrdering Facility: [facility] Address: [address] [place] [address] Result Comment: Pre- op diagnosis: Malignant neoplasm of upper-outer quadrant of right breast in female, estrogen receptor positive (HCC) [C50.411, Z17.0] Atypical lobular hyperplasia (ALH) of left breast [N60.92] Performed By: #### L [id number] ####[facility] LABCLIA [id number] [address]#### S ####[facility] LABCLIA [id number] [address] LABCLIA [id number] [address] FINAL DIAGNOSIS Normal [facility] Comment on above: Order Comment: Speci men Type: TISSUE SPECIMENOrdering Facility: [facility] Address: [address] [place] [address] Result Comment: 1. L eft breast, oriented excision (A) - Lobular carcinoma in situ (LCIS), classic type. -Biopsy site changes are identified. 2. Right axillary lymph node, excision (B) - One lymph node, negative for metastatic carcinoma (0/1). 3. 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 -Biopsy site changes are identified. -The surrounding breast tissue shows atypical ductal hyperplasia (ADH), fibrocystic changes and microcalcifications. SHANELLE/shanelle/12/21/23 Performed By: #### L [id number] ####[facility] LABCLIA [id number] [place] [address] [place]#### S ####[facility] LABCLIA [id number] [address] LABCLIA [id number] [address] [place] FINAL PERFORMING LAB Normal [facility] Comment on above: Order Comment: Speci men Type: TISSUE SPECIMENOrdering Facility: [facility] Address: [address] [place] [address] Result Comment: Diag nostic interpretation performed at [facility], [address] [place] [address] CLIA# [id number] Cellars Supervisor: Tavo Roberts M.D. Performed By: #### L [id number] ####[facility] LABCLIA [id number] [place] [address] [place]#### S ####[facility] LABCLIA [id number] [address] LABCLIA [id number] [address] [place] GROSS DESCRIPTION Normal [facility] Comment on above: Order Comment: Speci men Type: TISSUE SPECIMENOrdering Facility: [facility] Address: [address] [place] [address] Result Comment: Katia miliant, Left, Excision of Lesion Received in formalin in a Terence device designated breast, left, excision is an oriented (short-superior, long-lateral) segment of fibrofatty tissue which weighs 3.4 g and measures 2.5 cm (anterior to posterior) x 2.4 cm (superior to inferior) x 0.7 cm (medial to lateral). Examination of a radiograph of the specimen in epic reveals a Jazmyn assistant professor sculpture reflector and Q shaped clip present. The specimen is inked in the lab anterior-yellow, posterior-black, superior-blue, inferior-green, medial-orange, and lateral-red. The specimen is serially sectioned from anterior to posterior into 8 slices. Examination of the slices reveals a Q shaped clip in slice 5 and a Jazmyn assistant professor sculpture reflector in slice 4. A definitive mass or lesion is not grossly appreciated. The cut surface is fatty with irregular white fibrous streaks and approximately 10% intervening white fibrotic tissue. The specimen is totally submitted as follows: A1 slice 1 perpendicular anterior margin, A2 slice 2 perpendicular medial, lateral, superior, and inferior margins, A3 slice 3 perpendicular medial, lateral, superior, and inferior margins, A4 slice 4 perpendicular medial, lateral, superior, and inferior margins, A5 slice 5 Q shaped clip in relation to perpendicular medial, lateral, superior, and inferior margins, A6 slice 6 perpendicular medial, lateral, superior, and inferior margins, A7 slice 7 perpendicular medial, lateral, superior, and inferior margins, A8 slice 8 perpendicular posterior margin. The specimen is removed from the patient on 12/18/2023 at 8:56 AM and placed in formalin at 9:24 AM. BF December 19, 2023 8:23 AM Gross examination performed at [facility], [address] [place] [address] B. Lymph Node, Right, Axillary Part B is received fresh and designated as lymph node right axillary consists of a single fragment of fibroadipose tissue material that has an overall dimension of 1 x 1 x 1 cm. Single lymph node is serially sectioned and submitted entirely in B1 for frozen section diagnosis. Gross examination performed at [facility], [address] [place], [place] [address]IA# [id number] C. Breast, Right, Mastectomy Labeled: Breast, right, mastectomy Received: Formalin Specimen type: Simple mastectomy Orientation: Short-superior, long-lateral Weight: 564.2 Measurements: 20.5 cm (superior to inferior) x 18.2 cm (medial to lateral) x 3.2 cm (anterior to posterior) Skin ellipse: 16.5 cm (medial to lateral) x 8.5 cm (superior to inferior), no lesions are grossly appreciated Nipple-areola complex: 3.8 x 3.4 cm with everted nipple measuring 1.2 cm in diameter. At the center of the nipple is a scabbed lesion measuring 0.4 x 0.3 cm located 2.8 cm to the nearest inferior radial margin Axillary tail: N/A Previously inked by surgeon: No Inking: Superior radial margin: Blue Inferior radial margin: Green Deep margin: Black Specimen Radiograph in Pathology: Yes Post-Neoadjuvant Therapy: No Specimen Photo Mapping: No Sectionin:00 to 9:00 Total number of slices: 27 Areas of interest: 2; Number of clips: 2 Area of interest 1: Upper inner quadrant to subareolar region 9:00 white nodular fibrotic tissue with calcifications Size 4.2 cm (superior to inferior) x 3.8 cm (medial to lateral) x 2.7 cm (anterior to posterior) Slices: Slice 9 to slice 13 Clip Information: Shape: Top-Hat, Slice # 12 Area of interest 1 distance from margins: 3 cm from superior radial margin 0.5 cm from deep margin Area of interest 2: Lower outer quadrants approximately 8:00 white nodular fibrotic tissue with calcifications Size 2.6 cm (superior to inferior) x 2.3 cm (medial to lateral) x 1.8 cm (anterior to posterior) Slices: Slice 15 to slice 18 Clip Information: Shape: Buckle, slice # 18 Area of interest 2 distance from margins: 2.7 cm from inferior radial margin 0.7 cm from deep margin The second area of interest is located 0.6 cm lateral to the first area of interest The remainder of the breast parenchyma is fatty with irregular white fibrous streaks and approximately 40% intervening white fibrocystic tissue Cassette summary: The areas of interest are totally submitted as follows: C1-C15 first area of interest submitted as follows: C1 slice 9 first area of interest nonmarginal, C2 slice 10 first area of interest with nipple nonmarginal, C3 slice 11 first area of interest with perpendicular deep, C4-C5 slice 11 first area of interest with remainder of nipple, C6-C9 slice 12 first area of interest calcs anterior depth nonmarginal (C7 area of Top-Hat clip), C10-C12 slice 12 first area of interest posterior depth (C10 nonmarginal, C11-C12 with perpendicular deep margin, C13 slice 13 first area of interest with perpendicular deep margin, C14-C15 slice remainder first area of interest 13 nonmarginal, C16 slice 8 flanking medial to first area of interest with perpendicular deep margin, C17 (more content not included)... Performed By: #### L [id number] ####[facility] LABCLIA [id number] [place] [address] [place]#### S ####[facility] LABCLIA [id number] [address] LABCLIA [id number] [place] [address] [place] INTRAOPERATIVE DIAGNOSIS Normal [facility] Comment on above: Order Comment: Speci men Type: TISSUE SPECIMENOrdering Facility: [facility] Address: [address] [place] [address] Result Comment: Luis Herrera ymph Node, Right, Axillary FS A1: Lymph node, right, axillary, biopsy: - One lymph node, negative carcinoma (Dr. Hammond). Intraoperative diagnosis performed at [facility], [address] [place] [address] CLIA# [id number] Performed By: #### L [id number] ####[facility] LABCLIA [id number] [address] STATES [facility]#### S ####[facility] LABCLIA [id number] [address] LABCLIA [id number] [address] [place] SYNOPTIC REPORT Normal [facility] Comment on above: Order Comment: Speci men Type: TISSUE SPECIMENOrdering Facility: [facility] Address: [address] [place] [address] Result Comment: INVA SIVE CARCINOMA OF THE BREAST: Resection INVASIVE CARCINOMA OF THE BREAST: RESECTION - B, C 8th Edition - Protocol posted: 09/13/2023 SPECIMEN Procedure: Total mastectomy Specimen Laterality: Right TUMOR Histologic Type: Invasive carcinoma with mixed ductal and lobular features Histologic Grade ([place] Histologic Score): Glandular (Acinar) / Tubular Differentiation: Score 2 Nuclear Pleomorphism: Score 2 Mitotic Rate: Score 1 Overall Grade: Grade 1 (scores of 3, 4 or 5) Tumor Size: Greatest dimension of largest invasive focus (Millimeters): 7 mm Tumor Focality: Multiple foci of invasive carcinoma Ductal Carcinoma In Situ (DCIS): Not identified Lymphatic and / or Vascular Invasion: Not identified Treatment Effect in the Breast: No known presurgical therapy MARGINS Margin Status for Invasive Carcinoma: All margins negative for invasive carcinoma Distance from Invasive Carcinoma to Closest Margin: Greater than: 2 mm REGIONAL LYMPH NODES Regional Lymph Node Status: : All regional lymph nodes negative for tumor Total Number of Lymph Nodes Examined (sentinel and non-sentinel): 1 Number of [place] Nodes Examined: 1 pTNM CLASSIFICATION (AJCC 8th Edition) Reporting of pT, pN, and (when applicable) pM categories is based on information available to the pathologist at the time the report is issued. As per the AJCC (Chapter 1, 8th Ed.) it is the managing physician's responsibility to establish the final pathologic stage based upon all pertinent information, including but potentially not limited to this pathology report. pT Category: pT1b T Suffix: (m) pN Category: pN not assigned (no nodes submitted or found) N Suffix: (sn) SPECIAL STUDIES Testing Performed on Case Number: Pending Comment(s): This synoptic report incorporates the focus of microinvasive carcinoma seen in the patient's prior surgical specimen ([id number]) Performed By: #### L [id number] ####[facility] LABCLIA [id number] [place] [address] [place]#### S ####[facility] LABCLIA [id number] [place] [id number] [facility] LABCLIA [id number] [place] [address] [place] ECHOon 12-15-2023 Echocardiography Echocardiography Rep ort: Transthoracic Echo Formerly [facility] Date of service: 12/15/2023 10:22:33 AM PROGRAMS DIRECTOR Ordering physician: ELIZABETH SMITH Indication: Baseline and serial evaluation in a patient undergoing therapy with cardiotoxic agents Technologist: Reny Moya RDCS Interpreting physician: Sahra Solares MD PATIENT: Name: MRS. ALBERTO RODRIGUEZ : 1935 Age: 88 years Gender: F History of hypertension. Primary rhythm: sinus. Height: 152.40 cm BSA: 1.61 m Weight: 61.24 kg BMI: 26.4 kg/m Heart rate 76 bpm Blood pressure 133/65 mmHg Technically difficult exam due to body habitus. Color Doppler was utilized to interrogate the cardiac valves assessed and spectral Doppler was utilized to determine the flow velocities and pressure gradients reported in this exam. Myocardial strain analysis was performed in this exam to aid in the assessment of cardiac function. MEASUREMENTS: Value Indexed Normal Max aortic dimension 2.7 cm Ao < 3.8 Left atrial volume 38 ml (biplane A-L) 24 ml/m Nilesh <= 34 LV ID (diastole) 3.8 cm (2D) 2.34 cm/m LV ID (systole) 2.4 cm (2D) 1.47 cm/m IVS, leaflet tips 1.0 cm (2D) Posterior wall thickness 0.9 cm (2D) Left ventricular mass 107 g (2D) 66 g/m Global peak long strain -17.0 % LV stroke volume 38 ml (2D biplane) LV end diastolic volume 66 ml (2D biplane) 40.7 ml/m 29<=EDVi<62 LV end systolic volume 27 ml (2D biplane) 16.9 ml/m Ejection Fraction 58 % (2D biplane) EF > 54 FINDINGS: LEFT VENTRICLE The left ventricle is normal in size. Left ventricular systolic function is normal. Global LV myocardial strain is normal. Grade I left ventricular diastolic dysfunction. Mitral annular lateral E/e': 14.0. Mitral annular septal E/e': 16.3. Wall Motion: All scored segments are normal. RIGHT VENTRICLE The right ventricle is normal in size. Right ventricular systolic function is normal. RV systolic tissue Doppler velocity is 18.0 cm/s. Tricuspid annular displacement is 1.9 cm. Estimated right ventricular systolic pressure is 35 mmHg consistent with normal pulmonary artery pressures. Estimated right atrial pressure is 3 mmHg (although IVC not seen). LEFT ATRIUM The left atrial cavity is normal in size. Pulmonary Veins: The pulmonary venous pattern showed normal systolic flow. RIGHT ATRIUM The right atrial cavity is normal in size. MITRAL VALVE There is mild mitral annular calcification observed posterior. There is mild (1+ - 2+) mitral valve regurgitation. The pressure half time is 60 msec. The peak mitral E/A ratio is 0.69. The average mitral E/e' ratio is 15.2. The mitral flow deceleration time is 207 msec. TRICUSPID VALVE The tricuspid valve leaflets are structurally normal. There is mild (1+ - 2+) tricuspid valve regurgitation. AORTIC VALVE There is no aortic valve regurgitation. Tricuspid aortic valve. There is mild thickening. There is mild calcification. The peak gradient is 12 mmHg (peak velocity = 172.7 cm/s). The LVOT diameter is 1.9 cm. PULMONIC VALVE The pulmonic valve cusps are structurally normal. There is mild (1+) pulmonic valve regurgitation. AORTA The visualized aorta is normal in size. Measurements - Mid ascending aorta 2.7 cm. PERICARDIUM There is no pericardial effusion. There is an epicardial fat pad. CONCLUSIONS: - Technically difficult exam due to body habitus. - Exam indication: Baseline and serial evaluation in a patient undergoing therapy with cardiotoxic agents - The left ventricle is normal in size. Left ventricular systolic function is normal. EF = 58 5% (2D biplane) Grade I left ventricular diastolic dysfunction. - The right ventricle is normal in size. Right ventricular systolic function is normal. - 1-2+ mitral regurgitation - 1-2+ tricuspid regurgitation - 1+ pulmonic regurgitation - Exam was compared with the prior echocardiographic exam performed on 12/28/2018. Prior EF was reported to be 61%. * * * Final * * * [employer] Image : [id number] ID Normal [facility] CNNURSEon 12-13-2023 CNNURSE Nurse Visit (BRCRBD) -------- ALBERTO RODRIGUEZ ([id number]) 1935 F Date Time Provider Department 12/13/23 2:00 PM NURIS ALEGRIA During your visit today, we recorded the following information about you: Nuris Alegria, RN 12/13/2023 3:15 PM Signed AMBULATORY PATIENT EDUCATION NOTE TOPIC: SURVIVAL SKILLS: Pre and post op education Complication Prevention Disease Education Medical Equipment conro drain Symptom Management Wound Care READINESS TO LEARN COGNITIVE ABILITY: Alert and oriented MOTIVATION TO LEARN: Eager Interested FAMILY SUPPORT: High - Very involved in pt care INSTRUCTION PROVIDED TO: Patient and family member PATIENT LEARNS BEST BY: Multiple Methods FACTORS AFFECTING LEARNING: None PHYSICAL LIMITATIONS AFFECTING LEARNING: None LEARNING RESPONSE DIAGNOSIS: malignant neoplasm of upper-outer quadrant of right breast METHOD OF INSTRUCTION: Teach Back conor drain Individual instruction Written instruction/Handouts Verbal instruction Demonstration/Hands on Learning Video PATIENT / FAMILY RESPONSE: Verbalizes understanding of: DRAIN CARE- Correct procedure to perform drain care POST-OPERATIVE INSTRUCTIONS-Correct actions to take to reduce postoperative complications PRE-OPERATIVE INSTRUCTIONS-Correct action to take to follow pre-operative instructions SYMPTOM MANAGEMENT-Correct actions to take to manage symptoms associated with his/her disease/illness WORSENING CONDITION-Signs and symptoms of a worsening condition that warrant a call to the physician WOUND CARE-Correct procedure to perform wound care FOLLOW-UP PLAN: Patient instructed to call with any further issues SUPPLEMENTAL MATERIAL: Your Surgical Guide [facility] REFERRAL (RECOMMENDATION): None Hibiclens 4 ounce bottle given to patient with instruction. Electronically Signed By: Nuris Alegria RN In Department: BREAST CENTER Time spent on patient education: 30 minutes. Referring Provider: LOY KWON [[id number]] Allergies As of Date: 12/13/2023 Noted Allergy Reaction VICODIN (HYDROCODONE-ACETAMINOPH E*04/27/2009 5 - Intolerance Date Reviewed: 12/13/2023 Reviewed by: Nuris Alegria, JULI - Fully Assessed Reason for Visit: Pre-Op Teaching [134] Primary Visit Diagnosis:Malignant neoplasm of upper-outer quadrant of right breast in female, estrogen receptor positive (HCC) [C50.411, Z17.0] Other Visit Diagnosis:Encounter for education [Z71.9] Prescriptions as of 12/13/2023 - methylPREDNISolone (MEDROL, KELIN,) 4 mg Dose-Pack Follow dosing instructions, take with food. - losartan (COZAAR) 25 mg tablet Take 1 tablet by mouth once daily. - pravastatin (PRAVACHOL) 40 mg tablet Take 1 tablet by mouth daily at bedtime. - amLODIPine (NORVASC) 2.5 mg tablet Take 1 tablet by mouth once daily. - nortriptyline (PAMELOR) 50 mg capsule TAKE ONE CAPSULE BY MOUTH EVERY DAY AT BEDTIME - gabapentin (NEURONTIN) 100 mg capsule Take 1 capsule by mouth daily at bedtime for 180 days. - potassium chloride (K-TAB) 10 mEq tablet Take 1 tablet by mouth daily with breakfast. On days she takes lasix - furosemide (LASIX) 20 mg tablet take 1 tablet by mouth every other day - >Zippered Compression Knee High 30-40 mm custom CUSTOM MEASURE FOR KNEE HIGH HO COMPRESSION STOCKINGS, 30-40 MM, WITH ZIPPERS PLEASE. IF UNABLE, PLEASE REFER TO CHUNG AT [facility]. DX: EDEMA - multivitamin tablet Take 1 tablet by mouth once daily. - Aspirin 81 mg Tab Take 81 mg by mouth once daily. - cholecalciferol (VITAMIN D3) 50 mcg (2,000 unit) tablet Take by mouth once daily. 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] 05/02/2005 ESOPHAGEAL REFLUX [K21.9] 05/02/2005 PAIN ABDOMEN( Right Upper Quadrant) [R10.11] 07/16/2007 GASTRITIS ANTRAL( W/O Hemorrhage) [K29.60] 07/27/2007 ACUTE GASTRITIS W/O HEMORRHAGE [K29.00] 07/27/2007 CHOLECYSTITIS SEE ALSO GALLBLADDER CHRONIC [K*08/13/2007 Dysuria [R30.0] 08/16/2007 06/27/2014 MULTINODULAR GOITER (NONTOXIC) [E04.2] 10/30/2008 Hot flash, menopausal [N95.1] 06/21/2011 06/27/2014 PHN (postherpetic neuralgia) [B02.29] 02/06/2012 Postherpetic neuralgia [B02.29] 06/14/2012 06/27/2014 Pinched nerve in neck [G58.9] 01/31/2018 Hot flashes [R23.2] 09/21/2018 Essential hypertension [I10] 04/14/2022 Pain of left hip joint [M25.552] 07/19/2022 Murmur, cardiac [R01.1] 08/25/2016 History of cerebral infarction [Z86.73] 12/08/2023 Encounter Status:Closed by RAJI, (more content not included)... Normal [facility] DIAGNOSTIC LTon 12-13-19 [facility] DIAGNOSTIC LT * * *Final Report* * * DATE OF EXAM: Dec 13 2023 1:54PM [facility] 0621 - [facility] DIAGNOSTIC LT / PROCEDURE REASON: Abnormal finding on breast imaging * * * * Physician Interpretation * * * * [place] [address] HISTORY: Patient is 88 years old and is seen for diagnostic evaluation of post mammogram reflector placement in the left breast at 11 o'clock. The patient has a history of breast cancer. COMPARISON STUDIES: The present examination has been compared to prior imaging studies dated 04/08/2020 (mammogram), 07/01/2021 (mammogram), 07/27/2023 (mammogram) and 12/13/2023. MAMMOGRAM TECHNIQUE: The study was acquired using full field digital technology and interpreted from soft copy. Digital Breast Tomosynthesis (DBT) images were obtained and used to assist in the interpretation of this examination. Computer-aided detection was utilized by the radiologist in the interpretation of this examination. MAMMOGRAM FINDINGS: The breast is heterogeneously dense, which may obscure small masses. There is a Jazmyn Admissions Manager in the upper inner left breast immediately adjacent to the Q clip. There is also an hourglass clip which corresponds to prior benign and concordant MRI biopsy. IMPRESSION: Post procedure mammogram shows successful clip placement. Mammogram BI-RADS: Post-procedure mammogram for marker placement Interpreting Radiologist: Clarisa Villegas M.D. Executive Assistant: ALBA Transcritawanna Date/Time: Dec 13 2023 1:28P Dictated by : CLARISA VILLEGAS MD This examination was interpreted and the report reviewed and electronically signed by: CLARISA VILLEGAS MD on Dec 13 2023 3:25PM EST [id number] Normal [facility] US LOC BREAST LTon 12-12 [facility] US LOC BREAST LT * * *Final Report* * * DATE OF EXAM: Dec 13 2023 1:55PM [facility] 0599 - [facility] US LOC BREAST LT / PROCEDURE REASON: Abnormal finding on breast imaging * * * * Physician Interpretation * * * * [place] [address] HISTORY: 88 year old patient presents for placement of an infrared activated electromagnetic reflector device at the site of the previously noted biopsy clip in the left breast at 11 o'clock 3 cm from the nipple. PATIENT CONSENT: A time out was performed immediately prior to procedure start with the radiology team, correctly identifying the patient name, date of , procedure, anatomy (including marking of site and side), patient position, relevant diagnostic and radiology test results, safety precautions, and procedure-specific equipment needs. The procedure was explained to the patient including the risks, benefits and alternatives. Medications and allergies were also reviewed. The risks, including but not limited to infection and bleeding, were reviewed by the performing physician and the patient agreed to undergo the procedure. The radiologist and technologist were present throughout the entire procedure. Audible Time Out: 13:30 Procedure Start: 13:30 Procedure End: 13:39 Dr. Villegas performed the entire procedure without an psychiatric nursing assistant. Correlation is made to exams dated: 10/21/2023 (MRI), 11/06/2023 (mammogram) and 11/06/2023. Site 1: The skin was prepped in the usual manner. Local anesthetic was administered to the access site. An infrared activated electromagnetic reflector device placement using ultrasound guidance was performed for the biopsy clip located in the left breast at 11 o'clock 3 cm from the nipple. This was described on the previous ultrasound reports. The skin was prepped in the usual manner. Local anesthetic was administered to the access site. The localization was approached from the inferior aspect. A location device was inserted into the targeted area under ultrasound guidance. Post procedure mammogram demonstrates accurate placement. A sterile dressing was applied to the access site. Post placement digital imaging demonstrates localization device traverses the targeted area. Reflector placement/activation was verified with Admissions Manager Check following the procedure. IMPRESSION: Site 1: Successful infrared activated electromagnetic reflector device placement for biopsy clip in the left breast at 11 o'clock 3 cm from the nipple with no apparent complications. A specimen radiograph is recommended. The specimen radiograph should include the Admissions Manager reflector and the Q shaped clip. Interpreting Radiologist: Clarisa Villegas M.D. Executive Assistant: ALBA Transcribe Date/Time: Dec 13 2023 1:27P Dictated by : CLARISA VILLEGAS MD This examination was interpreted and the report reviewed and electronically signed by: CLARISA VILLEGAS MD on Dec 13 2023 3:24PM EST [id number] Normal [facility] MG Breast - left Diagnostic for implanton 12-13-2023 * * *Final Report* * * DATE OF EXAM: Dec 13 2023 1:54PM [facility] 0621 - [facility] DIAGNOSTIC LT / PROCEDURE REASON: Abnormal finding on breast imaging * * * * Physician Interpretation * * * * [place] [address] HISTORY: Patient is 88 years old and is seen for diagnostic evaluation of post mammogram reflector placement in the left breast at 11 o'clock. The patient has a history of breast cancer. COMPARISON STUDIES: The present examination has been compared to prior imaging studies dated 04/08/2020 (mammogram), 07/01/2021 (mammogram), 07/27/2023 (mammogram) and 12/13/2023. MAMMOGRAM TECHNIQUE: The study was acquired using full field digital technology and interpreted from soft copy. Digital Breast Tomosynthesis (DBT) images were obtained and used to assist in the interpretation of this examination. Computer-aided detection was utilized by the radiologist in the interpretation of this examination. MAMMOGRAM FINDINGS: The breast is heterogeneously dense, which may obscure small masses. There is a Jazmyn Admissions Manager in the upper inner left breast immediately adjacent to the Q clip. There is also an hourglass clip which corresponds to prior benign and concordant MRI biopsy. DIVISION OF RADIOLOGY Provider, Gilda Santiago - 12/13/2023 * * *Final Report* * * DATE OF EXAM: Dec 13 2023 1:54PM [facility] 0621 - [facility] DIAGNOSTIC LT / PROCEDURE REASON: Abnormal finding on breast imaging * * * * Physician Interpretation * * * * [place] [address] HISTORY: Patient is 88 years old and is seen for diagnostic evaluation of post mammogram reflector placement in the left breast at 11 o'clock. The patient has a history of breast cancer. COMPARISON STUDIES: The present examination has been compared to prior imaging studies dated 04/08/2020 (mammogram), 07/01/2021 (mammogram), 07/27/2023 (mammogram) and 12/13/2023. MAMMOGRAM TECHNIQUE: The study was acquired using full field digital technology and interpreted from soft copy. Digital Breast Tomosynthesis (DBT) images were obtained and used to assist in the interpretation of this examination. Computer-aided detection was utilized by the radiologist in the interpretation of this examination. MAMMOGRAM FINDINGS: The breast is heterogeneously dense, which may obscure small masses. There is a Jazmyn Admissions Manager in the upper inner left breast immediately adjacent to the Q clip. There is also an hourglass clip which corresponds to prior benign and concordant MRI biopsy. IMPRESSION IMPRESSION: Post procedure mammogram shows successful clip placement. Mammogram BI-RADS: Post-procedure mammogram for marker placement Interpreting Radiologist: Clarisa Villegas M.D. Executive Assistant: ALBA Transcribe Date/Time: Dec 13 2023 1:28P Dictated by : CLARISA VILLEGAS MD This examination was interpreted and the report reviewed and electronically signed by: CLARISA VILLEGAS MD on Dec 13 2023 3:25PM [facility] MG Breast - left Diagnostic for implantOrdered By: Cc Provider on 12-13-2023 [facility] No Panel Informationon 12-12 Radiology Study observation (narrative) [facility] US Guidance for localization of Breast - lefton 12-13-2023 IMPRESSION: Site 1: Successful infrared activated electromagnetic reflector device placement for biopsy clip in the left breast at 11 o'clock 3 cm from the nipple with no apparent complications. A specimen radiograph is recommended. The specimen radiograph should include the Admissions Manager reflector and the Q shaped clip. Interpreting Radiologist: Clarisa Villegas M.D. Executive Assistant: ALBA Transcribe Date/Time: Dec 13 2023 1:27P Dictated by : CLARISA VILLEGAS MD This examination was interpreted and the report reviewed and electronically signed by: CLARISA VILLEGAS MD on Dec 13 2023 3:24PM [facility] DIVISION OF RADIOLOGY * * *Final Report* * * DATE OF EXAM: Dec 13 2023 1:55PM [facility] 0599 - [facility] LOC BREAST LT / PROCEDURE REASON: Abnormal finding on breast imaging * * * * Physician Interpretation * * * * [place] [address] HISTORY: 88 year old patient presents for placement of an infrared activated electromagnetic reflector device at the site of the previously noted biopsy clip in the left breast at 11 o'clock 3 cm from the nipple. PATIENT CONSENT: A time out was performed immediately prior to procedure start with the radiology team, correctly identifying the patient name, date of , procedure, anatomy (including marking of site and side), patient position, relevant diagnostic and radiology test results, safety precautions, and procedure-specific equipment needs. The procedure was explained to the patient including the risks, benefits and alternatives. Medications and allergies were also reviewed. The risks, including but not limited to infection and bleeding, were reviewed by the performing physician and the patient agreed to undergo the procedure. The radiologist and technologist were present throughout the entire procedure. Audible Time Out: 13:30 Procedure Start: 13:30 Procedure End: 13:39 Dr. Villegas performed the entire procedure without an psychiatric nursing assistant. Correlation is made to exams dated: 10/21/2023 (MRI), 11/06/2023 (mammogram) and 11/06/2023. Site 1: The skin was prepped in the usual manner. Local anesthetic was administered to the access site. An infrared activated electromagnetic reflector device placement using ultrasound guidance was performed for the biopsy clip located in the left breast at 11 o'clock 3 cm from the nipple. This was described on the previous ultrasound reports. The skin was prepped in the usual manner. Local anesthetic was administered to the access site. The localization was approached from the inferior aspect. A location device was inserted into the targeted area under ultrasound guidance. Post procedure mammogram demonstrates accurate placement. A sterile dressing was applied to the access site. Post placement digital imaging demonstrates localization device traverses the targeted area. Reflector placement/activation was verified with Admissions Manager Check following the procedure. DIVISION OF RADIOLOGY Provider, [facility] 12/13/2023 * * *Final Report* * * DATE OF EXAM: Dec 13 2023 1:55PM [facility] 0599 - [facility] LOC BREAST LT / PROCEDURE REASON: Abnormal finding on breast imaging * * * * Physician Interpretation * * * * [place] [address] HISTORY: 88 year old patient presents for placement of an infrared activated electromagnetic reflector device at the site of the previously noted biopsy clip in the left breast at 11 o'clock 3 cm from the nipple. PATIENT CONSENT: A time out was performed immediately prior to procedure start with the radiology team, correctly identifying the patient name, date of , procedure, anatomy (including marking of site and side), patient position, relevant diagnostic and radiology test results, safety precautions, and procedure-specific equipment needs. The procedure was explained to the patient including the risks, benefits and alternatives. Medications and allergies were also reviewed. The risks, including but not limited to infection and bleeding, were reviewed by the performing physician and the patient agreed to undergo the procedure. The radiologist and technologist were present throughout the entire procedure. Audible Time Out: 13:30 Procedure Start: 13:30 Procedure End: 13:39 Dr. Villegas performed the entire procedure without an psychiatric nursing assistant. Correlation is made to exams dated: 10/21/2023 (MRI), 11/06/2023 (mammogram) and 11/06/2023. Site 1: The skin was prepped in the usual manner. Local anesthetic was administered to the access site. An infrared activated electromagnetic reflector device placement using ultrasound guidance was performed for the biopsy clip located in the left breast at 11 o'clock 3 cm from the nipple. This was described on the previous ultrasound reports. The skin was prepped in the usual manner. Local anesthetic was administered to the access site. The localization was approached from the inferior aspect. A location device was inserted into the targeted area under ultrasound guidance. Post procedure mammogram demonstrates accurate placement. A sterile dressing was applied to the access site. Post placement digital imaging demonstrates localization device traverses the targeted area. Reflector placement/activation was verified with Admissions Manager Check following the procedure. IMPRESSION IMPRESSION: Site 1: Successful infrared activated electromagnetic reflector device placement for biopsy clip in the left breast at 11 o'clock 3 cm from the nipple with no apparent complications. A specimen radiograph is recommended. The specimen radiograph should include the Admissions Manager reflector and the Q shaped clip. Interpreting Radiologist: Clarisa Villegas M.D. Executive Assistant: ALBA Transcribe Date/Time: Dec 13 2023 1:27P Dictated by : CLARISA VILLEGAS MD This examination was interpreted and the report reviewed and electronically signed by: CLARISA VILLEGAS MD on Dec 13 2023 3:24PM [facility] CNOVon 12-11-2023 CNOV Office Visit (INTMWS ) -------- ALBERTO RODRIGUEZ ([id number]) 1935 F Date Time Provider Department 12/11/23 9:20 AM RAMANDEEP ALVAREZ INTEddieWS During your visit today, we recorded the following information about you: Pulse Respiration Blood pressure Weight 80/minute 16/minute 110/70 60.8 kg Ramandeep Alvarez MD 12/11/2023 10:39 AM Signed Reason for Visit Patient presents with: Insect Bite Alberto M Hillary is a 88 year old female who presents here today for Above Complaints.. Health Maintenance Covid-19 Vaccine( season) Influenza Vaccine(1) RYAN Resendiz is a very pleasant 88-year-old woman with a past medical history of hypertension, hyper cholesterolemia, postherpetic neuralgia, chronic venous insufficiency who was recently diagnosed with breast cancer. She was outside on Monday, watering her flower garden and slept on the chair outside. She woke and saw a rash, it tingled and hurt a little. She started using a fungal cream with steroid. She was told that she has poison armin in her back porch. Currently She is undergoing a mastectomy next week and is afraid it wont be done due to this, she thinks it is an bite of a insect. Unfortunately patient had decided for many years to be on estrogen for her hot flashes, she wanted to take the risk of cancer but not have hot flashes. we were monitoring by doing regular mammograms till this year a mass was seen. Biopsy showed ER and [place] positive mass. No problem-specific Assessment AND Plan notes found for this encounter. 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 COLONOSCOPY FLX DX W/COLLJ SPEC WHEN PFRMD 07/18/2003 cecal lipoma, otherwise normal COLONOSCOPY FLX DX W/COLLJ SPEC WHEN PFRMD 06/27/2017 Colonoscopy EGD TRANSORAL BIOPSY SINGLE/MULTIPLE 07/27/2007 Doyle-gastritis LAPS SURG CHOLECYSTECTOMY W/CHOLANGIOGRAPHY 08/02/2007 RPR 1ST INCAL/VNT HERNIA INCARCERATED 08/02/2007 TOTAL ABDOMINAL HYSTERECT W/WO RMVL TUBE OVARY Hysterectomy, JAGRUTI FAMILY HISTORY Problem Relation Age of Onset Heart disease Mother Asthma Father Breast Cancer Sister Breast Cancer Sister Leukemia Sister Heart Brother Stroke Brother Diabetes Maternal Grandmother Colon Cancer Paternal Grandmother Social History Tobacco Use Smoking status: Never Smokeless tobacco: Never Vaping Use Vaping status: Never Used Substance Use Topics Alcohol use: Yes Comment: occasionally wine Drug use: No Past medical history, appointments, medications, allergies reviewed. Pertinent Lab/Diagnostic Studies are reviewed and discussed today Current Outpatient Medications: losartan (COZAAR) 25 mg tablet pravastatin (PRAVACHOL) 40 mg tablet amLODIPine (NORVASC) 2.5 mg tablet nortriptyline (PAMELOR) 50 mg capsule gabapentin (NEURONTIN) 100 mg capsule potassium chloride (K-TAB) 10 mEq tablet furosemide (LASIX) 20 mg tablet >Zippered Compression Knee High 30-40 mm custom multivitamin tablet Aspirin 81 mg Tab cholecalciferol (VITAMIN D3) 50 mcg (2,000 unit) tablet CALCIUM 500 MG TAB naproxen sodium(ALEVE 220 MG TAB) Review of Systems CONSTITUTIONAL: No fevers, chills night sweats, unintended weight loss CARDIOVASCULAR: No chest pain, dyspnea, palpitations, orthopnea, PND, ankle edema. PULM: No dyspnea, unexplained cough. GI: No dysphagia/odynophagia, problematic reflux, constipation, diarrhea, changes in stool habits, hematochezia, melena. : No new urinary complaints, including dysuria, gross hematuria or pyuria. NEURO: No new balance problems, peripheral weakness/paresthesias or numbness of concern. Physical Exam BP 110/70 Pulse 80 Resp 16 Wt 60.8 kg (134 lb) BMI 26.17 kg/m? General appearance: Well appearing, alert, in no acute distress, well nourished. Skin: Ocular papular rash in the left breast involving almost half of the lateral breast. It is mildly raised erythematous. Head: Normocephalic, no masses, lesions, tenderness or abnormalities Eyes: Anicteric sclera. Pupils are equally round and reactive to light. Extraocular movements are intact. Lungs: Lungs clear to auscultation. No wheezing, rhonchi, rales Heart: RRR without murmur, gallop, or rubs. Extremities: No deformities, edema, skin discoloration, clubbing or cyanosis. Good capillary refill. ASSESSMENT/PLAN: 1. Poison armin derm (more content not included)... Normal [facility] CBC W Auto Differential pane l (Bld)on 12-08-2023 Basophils (Bld) [#/Vol] 0.08 10*3/uL [facility] Basophils/100 WBC (Bld) 0.9 % [facility] Differential cell count method Nom (Bld) Auto [facility] Eosinophils (Bld) [#/Vol] 0.09 10*3/uL [facility] Eosinophils/100 WBC (Bld) 1.1 % [facility] Erythrocyte distribution width (RBC) [Ratio] 15.9 % High 11.5 - 15.0 % [facility] Hematocrit (Bld) [Volume fraction] 36.1 % 36.0 - 46.0 % [facility] Hemoglobin (Bld) [Mass/Vol] 11.6 g/dL 11.5 - 15.5 g/dL [facility] Immature granulocytes (Bld) [#/Vol] 0.04 10*3/uL [facility] Immature granulocytes/100 WBC (Bld) 0.5 % [facility] Interpretation and review of laboratory results Abnormal [facility] Lymphocytes (Bld) [#/Vol] 2.03 10*3/uL [facility] Lymphocytes/100 WBC (Bld) 23.9 % [facility] MCH (RBC) [Entitic mass] 27.1 pg 26.0 - 34.0 pg [facility] MCHC (RBC) [Mass/Vol] 32.1 g/dL 30.5 - 36.0 g/dL [facility] MCV (RBC) [Entitic vol] 84.3 fL 80.0 - 100.0 fL [facility] Monocytes (Bld) [#/Vol] 0.56 10*3/uL [facility] Monocytes/100 WBC (Bld) 6.6 % [facility] Neutrophils (Bld) [#/Vol] 5.70 10*3/uL [facility] Neutrophils/100 WBC (Bld) 67.0 % [facility] Nucleated RBC (Bld) [#/Vol] [facility] Nucleated RBC/100 WBC (Bld) [Ratio] 0.0 % /100 WBC [facility] Platelet mean volume (Bld) [Entitic vol] 8.8 fL Low 9.0 - 12.7 fL [facility] Platelets (Bld) [#/Vol] 342 10*3/uL [facility] RBC (Bld) [#/Vol] 4.28 10*6/uL 3.90 - 5.2 0 m/uL [facility] WBC (Bld) [#/Vol] 8.50 10*3/uL [facility] Basophils (Bld) [#/Vol] 0.08 10*3/uL Normal <0.11 [facility] Comment on above: Order Comment: Speci men Type: BLOOD SPECIMEN Ordering Facility: [facility] Address: [address] [place] [address] Performed By: #### 5 7021-8 #### [facility] CLIA [id number] [address] [place] [address] [place] Basophils/100 WBC (Bld) 0.9 % Normal [facility] Comment on above: Order Comment: Speci men Type: BLOOD SPECIMEN Ordering Facility: [facility] Address: [address] [place] [address] Performed By: #### 5 7021-8 #### [facility] CLIA [id number] [address] [place] [address] [place] Differential cell count method Nom (Bld) Auto Normal [facility] Comment on above: Order Comment: Speci men Type: BLOOD SPECIMEN Ordering Facility: [facility] Address: [address] [place] [address] Performed By: #### 5 7021-8 #### [facility] CLIA [id number] [address] [place] [address] [place] Eosinophils (Bld) [#/Vol] 0.09 10*3/uL Normal <0.46 [facility] Comment on above: Order Comment: Speci men Type: BLOOD SPECIMEN Ordering Facility: [facility] Address: [address] [place] [address] Performed By: #### 5 7021-8 #### [facility] CLIA [id number] [address] [place] [address] [place] Eosinophils/100 WBC (Bld) 1.1 % Normal [facility] Comment on above: Order Comment: Speci men Type: BLOOD SPECIMEN Ordering Facility: [facility] Address: [address] [place] [address] Performed By: #### 5 7021-8 #### [facility] CLIA [id number] [address] [place] [address] [place] Erythrocyte distribution width (RBC) [Ratio] 15.9 % High 11.5-15.0 [facility] Comment on above: Order Comment: Speci men Type: BLOOD SPECIMEN Ordering Facility: [facility] Address: [address] [place], [place] [address] Performed By: #### 5 7021-8 #### [facility] CLIA [id number] [address] [place] [address] [place] Hematocrit (Bld) [Volume fraction] 36.1 % Normal 36.0-46.0 [facility] Comment on above: Order Comment: Speci men Type: BLOOD SPECIMEN Ordering Facility: [facility] Address: [address] [place] [address] Performed By: #### 5 7021-8 #### [facility] CLIA [id number] [address] [place] [address] [place] Hemoglobin (Bld) [Mass/Vol] 11.6 g/dL Normal 11.5-15.5 [facility] Comment on above: Order Comment: Speci men Type: BLOOD SPECIMEN Ordering Facility: [facility] Address: [address] [place] [address] Performed By: #### 5 7021-8 #### [facility] CLIA [id number] [address] [place] [address] [place] Immature granulocytes (Bld) [#/Vol] 0.04 10*3/uL Normal <0.10 [facility] Comment on above: Order Comment: Speci men Type: BLOOD SPECIMEN Ordering Facility: [facility] Address: [address] [place], [place] [address] Performed By: #### 5 7021-8 #### [facility] CLIA [id number] [address] [place] [address] [place] Immature granulocytes/100 WBC (Bld) 0.5 % Normal [facility] Comment on above: Order Comment: Speci men Type: BLOOD SPECIMEN Ordering Facility: [facility] Address: [address] [place] [address] Performed By: #### 5 7021-8 #### [facility] CLIA [id number] [address] [place] [address] [place] Lymphocytes (Bld) [#/Vol] 2.03 10*3/uL Normal 1.00-4.00 [facility] Comment on above: Order Comment: Speci men Type: BLOOD SPECIMEN Ordering Facility: [facility] Address: [address] [place] [address] Performed By: #### 5 7021-8 #### [facility] CLIA [id number] [address] [place] [address] [place] Lymphocytes/100 WBC (Bld) 23.9 % Normal [facility] Comment on above: Order Comment: Speci men Type: BLOOD SPECIMEN Ordering Facility: [facility] Address: [address] [place] [address] Performed By: #### 5 7021-8 #### [facility] CLIA [id number] [address] [place] [address] [place] MCH (RBC) [Entitic mass] 27.1 pg Normal 26.0-34.0 [facility] Comment on above: Order Comment: Speci men Type: BLOOD SPECIMEN Ordering Facility: [facility] Address: [address] [place], [place] [address] Performed By: #### 5 7021-8 #### [facility] CLIA [id number] [address] [place] [address] [place] MCHC (RBC) [Mass/Vol] 32.1 g/dL Normal 30.5-36.0 [facility] Comment on above: Order Comment: Speci men Type: BLOOD SPECIMEN Ordering Facility: [facility] Address: [address] [place] [address] Performed By: #### 5 7021-8 #### [facility] CLIA [id number] [address] [place] [address] [place] MCV (RBC) [Entitic vol] 84.3 fL Normal 80.0-100.0 [facility] Comment on above: Order Comment: Speci men Type: BLOOD SPECIMEN Ordering Facility: [facility] Address: [address] [place] [address] Performed By: #### 5 7021-8 #### [facility] CLIA [id number] [address] [place] [address] [place] Monocytes (Bld) [#/Vol] 0.56 10*3/uL Normal <0.87 [facility] Comment on above: Order Comment: Speci men Type: BLOOD SPECIMEN Ordering Facility: [facility] Address: [address] [place] [address] Performed By: #### 5 7021-8 #### [facility] CLIA [id number] [address] [place] [address] [place] Monocytes/100 WBC (Bld) 6.6 % Normal [facility] Comment on above: Order Comment: Speci men Type: BLOOD SPECIMEN Ordering Facility: [facility] Address: [address] [place] [address] Performed By: #### 5 7021-8 #### [facility] CLIA [id number] [address] [place] [address] [place] Neutrophils (Bld) [#/Vol] 5.70 10*3/uL Normal 1.45-7.50 [facility] Comment on above: Order Comment: Speci men Type: BLOOD SPECIMEN Ordering Facility: [facility] Address: [address] [place] [address] Performed By: #### 5 7021-8 #### [facility] CLIA [id number] [address] [place] [address] [place] Neutrophils/100 WBC (Bld) 67.0 % Normal [facility] Comment on above: Order Comment: Speci men Type: BLOOD SPECIMEN Ordering Facility: [facility] Address: [address] [place] [address] Performed By: #### 5 7021-8 #### [facility] CLIA [id number] [address] [place] [address] [place] Nucleated RBC (Bld) [#/Vol] 10*3/uL Normal <0.01 [facility] Comment on above: Order Comment: Speci men Type: BLOOD SPECIMEN Ordering Facility: [facility] Address: [address] [place] [address] Performed By: #### 5 7021-8 #### [facility] CLIA [id number] [address] [place] [address] [place] Nucleated RBC/100 WBC (Bld) [Ratio] 0.0 /100 WBC Normal [facility] Comment on above: Order Comment: Speci men Type: BLOOD SPECIMEN Ordering Facility: [facility] Address: [address] [place] [address] Performed By: #### 5 7021-8 #### [facility] CLIA [id number] [address] [place] [address] [place] Platelet mean volume (Bld) [Entitic vol] 8.8 fL Low 9.0-12.7 [facility] Comment on above: Order Comment: Speci men Type: BLOOD SPECIMEN Ordering Facility: [facility] Address: [address] [place] [address] Performed By: #### 5 7021-8 #### [facility] CLIA [id number] [address] [place] [address] [place] Platelets (Bld) [#/Vol] 342 10*3/uL Normal 150-400 [facility] Comment on above: Order Comment: Speci men Type: BLOOD SPECIMEN Ordering Facility: [facility] Address: [address] [place] [address] Performed By: #### 5 7021-8 #### [facility] CLIA [id number] [address] [place] [address] [place] RBC (Bld) [#/Vol] 4.28 10*6/uL Normal 3.90-5.20 [facility] Comment on above: Order Comment: Speci men Type: BLOOD SPECIMEN Ordering Facility: [facility] Address: [address] [place] [address] Performed By: #### 5 7021-8 #### [facility] CLIA [id number] [address] [place] [address] [place] WBC (Bld) [#/Vol] 8.50 10*3/uL Normal 3.70-11.00 [facility] Comment on above: Order Comment: Speci men Type: BLOOD SPECIMEN Ordering Facility: [facility] Address: [address] [place] [address] Performed By: #### 5 7021-8 #### [facility] CLIA [id number] [address] [place] [address] [place] Comprehensive metabolic 2000 panelOrdered By: Mindy Wagner on 12-08-2023 Albumin [Mass/Vol] 4.1 g/dL 3.9 - 4.9 g/dL [facility] ALP [Catalytic activity/Vol] 115 U/L 34 - 123 U/L [facility] ALT [Catalytic activity/Vol] 10 U/L 7 - 38 U/L [facility] Anion gap [Moles/Vol] 12 mmol/L 8 - 15 mmol/L [facility] AST [Catalytic activity/Vol] 20 U/L 13 - 35 U/L [facility] Bilirubin [Mass/Vol] 0.2 mg/dL 0.2 - 1 .3 mg/dL [facility] Calcium [Mass/Vol] 9.9 mg/dL 8.5 - 10. 2 mg/dL [facility] Chloride [Moles/Vol] 101 mmol/L 98 - 10 7 mmol/L [facility] CO2 [Moles/Vol] 21 mmol/L Low 22 - 30 mmol/L [facility] Creatinine [Mass/Vol] 0.76 mg/dL 0.58 - 0.96 mg/dL [facility] GFR/1.73 sq M.predicted among non-blacks MDRD (S/P/Bld) [Vol rate/Area] 76 mL/min/{1.73_m2} - PINF [facility] Comment on above: Estimated Glomerular Filtration Rate (eGFR) is calculated using the 2020 CKD-EPI creatinine equation. This equation utilizes serum creatinine, sex, and age as parameters. The creatinine assay has traceable calibration to isotope dilution-mass spectrometry. Refer to KDIGO guidelines for clinical interpretation. In patients with unstable renal function, e.g. those with acute kidney injury, the eGFR may not accurately reflect actual GFR. Glucose [Mass/Vol] 87 mg/dL 74 - 99 mg/dL [facility] Comment on above: The [place] Di[employer] Association (ADA) provides guidance for cutoff values for fasting glucose and random glucose. The ADA defines fasting as no caloric intake for at least 8 hours. Fasting plasma glucose results between 100 to 125 mg/dL indicate increased risk for diabetes (prediabetes). Fasting plasma glucose results greater than or equal to 126 mg/dL meet the criteria for diagnosis of diabetes. In the absence of unequivocal hyperglycemia, results should be confirmed by repeat testing. In a patient with classic symptoms of hyperglycemia or hyperglycemic crisis, random plasma glucose results greater than or equal to 200 mg/dL meet the criteria for diagnosis of diabetes. Reference: Standards of Medical Care in Diabetes 2016, [place] [employer]. Diabetes Care. 2016.39(Suppl 1). Interpretation and review of laboratory results Abnormal [facility] Potassium [Moles/Vol] 4.3 mmol/L 3.7 - 5.1 mmol/L [facility] Protein [Mass/Vol] 7.4 g/dL 6.3 - 8.0 g/dL [facility] Sodium [Moles/Vol] 134 mmol/L Low 136 - 144 mmol/L [facility] Urea nitrogen [Mass/Vol] 15 mg/dL 7 - 21 mg/dL [facility] Comprehensive metabolic 2000 panelon 12-08-2023 Albumin [Mass/Vol] 4.1 g/dL Normal 3.9-4.9 [facility] Comment on above: Order Comment: Speci men Type: BLOOD SPECIMEN Ordering Facility: [facility] Address: [address] [place] [address] Performed By: #### 2 4323-8 #### [facility] CLIA [id number] [address] [place] [address] [place] ALP [Catalytic activity/Vol] 115 U/L Normal 34-123 [facility] Comment on above: Order Comment: Speci men Type: BLOOD SPECIMEN Ordering Facility: [facility] Address: [address] [place] [address] Performed By: #### 2 4323-8 #### [facility] CLIA [id number] [address] [place] [address] [place] ALT [Catalytic activity/Vol] 10 U/L Normal 7-38 [facility] Comment on above: Order Comment: Speci men Type: BLOOD SPECIMEN Ordering Facility: [facility] Address: [address] [place] [address] Performed By: #### 2 4323-8 #### [facility] CLIA [id number] [address] [place] [address] [place] Anion gap [Moles/Vol] 12 mmol/L Normal 8-15 [facility] Comment on above: Order Comment: Speci men Type: BLOOD SPECIMEN Ordering Facility: [facility] Address: [address] [place] [address] Performed By: #### 2 4323-8 #### [facility] CLIA [id number] [address] [place] [address] [place] AST [Catalytic activity/Vol] 20 U/L Normal 13-35 [facility] Comment on above: Order Comment: Speci men Type: BLOOD SPECIMEN Ordering Facility: [facility] Address: [address] [place] [address] Performed By: #### 2 4323-8 #### [facility] CLIA [id number] [address] [place] [address] [place] Bilirubin [Mass/Vol] 0.2 mg/dL Normal 0.2-1.3 [facility] Comment on above: Order Comment: Speci men Type: BLOOD SPECIMEN Ordering Facility: [facility] Address: [address] [place] [address] Performed By: #### 2 4323-8 #### [facility] CLIA [id number] [address] [place] [address] [place] Calcium [Mass/Vol] 9.9 mg/dL Normal 8.5-10.2 [facility] Comment on above: Order Comment: Speci men Type: BLOOD SPECIMEN Ordering Facility: [facility] Address: [address] [place] [address] Performed By: #### 2 4323-8 #### [facility] CLIA [id number] [address] [place] [address] [place] Chloride [Moles/Vol] 101 mmol/L Normal 98-107 [facility] Comment on above: Order Comment: Speci men Type: BLOOD SPECIMEN Ordering Facility: [facility] Address: [address] [place] [address] Performed By: #### 2 4323-8 #### [facility] CLIA [id number] [address] [place] [address] [place] CO2 [Moles/Vol] 21 mmol/L Low 22-30 [facility] Comment on above: Order Comment: Speci men Type: BLOOD SPECIMEN Ordering Facility: [facility] Address: [address] [place] [address] Performed By: #### 2 4323-8 #### [facility] CLIA [id number] [address] [place] [address] [place] Creatinine [Mass/Vol] 0.76 mg/dL Normal 0.58-0.96 [facility] Comment on above: Order Comment: [place] carbajal Type: BLOOD SPECIMEN Ordering Facility: [facility] Address: [address] [place] [address] Performed By: #### 2 4323-8 #### [facility] [facility] CLIA [id number] [address] [place] [address] [place] Creatinine and Glomerular filtration rate.predicted panel (S/P/Bld) 76 mL/min/1.73m??? Normal >=60 [facility] Comment on above: Order Comment: Raleigh carbajal Type: BLOOD SPECIMEN Ordering Facility: [facility] Address: [address] [place] [address] Result Comment: Analia mated Glomerular Filtration Rate (eGFR) is calculated using the 2020 CKD-EPI creatinine equation. This equation utilizes serum creatinine, sex, and age as parameters. The creatinine assay has traceable calibration to isotope dilution-mass spectrometry. Refer to KDIGO guidelines for clinical interpretation. In patients with unstable renal function, e.g. those with acute kidney injury, the eGFR may not accurately reflect actual GFR. Performed By: #### 2 4323-8 #### [facility] [id number] [address] [place] [address] [place] Glucose [Mass/Vol] 87 mg/dL Normal 74-99 [facility] Comment on above: Order Comment: Raleigh carbajal Type: BLOOD SPECIMEN Ordering Facility: [facility] Address: [address] [place] [address] Result Comment: The [place] Diabetes Association (ADA) provides guidance for cutoff values for fasting glucose and random glucose. The ADA defines fasting as no caloric intake for at least 8 hours. Fasting plasma glucose results between 100 to 125 mg/dL indicate increased risk for diabetes (prediabetes). Fasting plasma glucose results greater than or equal to 126 mg/dL meet the criteria for diagnosis of diabetes. In the absence of unequivocal hyperglycemia, results should be confirmed by repeat testing. In a patient with classic symptoms of hyperglycemia or hyperglycemic crisis, random plasma glucose results greater than or equal to 200 mg/dL meet the criteria for diagnosis of diabetes. Reference: Standards of Medical Care in Diabetes 2016, [place] [employer] Association. Diabetes Care. 2016.39(Suppl 1). Performed By: #### 2 4323-8 #### [facility] [id number] [address] [place] [address] [place] Potassium [Moles/Vol] 4.3 mmol/L Normal 3.7-5.1 [facility] Comment on above: Order Comment: Talitai men Type: BLOOD SPECIMEN Ordering Facility: [facility] Address: [address] [place] [address] Performed By: #### 2 4323-8 #### [facility] [id number] [address] [place] [address] [place] Protein [Mass/Vol] 7.4 g/dL Normal 6.3-8.0 [facility] Comment on above: Order Comment: Talitai solomon Type: BLOOD SPECIMEN Ordering Facility: [facility] Address: [address] [place] [address] Performed By: #### 2 4323-8 #### [facility] [id number] [address] [place] [address] [place] Sodium [Moles/Vol] 134 mmol/L Low 136-144 [facility] Comment on above: Order Comment: Talitai men Type: BLOOD SPECIMEN Ordering Facility: [facility] Address: [address] [place] [address] Performed By: #### 2 4323-8 #### [facility] [id number] [address] [place] [address] [place] Urea nitrogen [Mass/Vol] 15 mg/dL Normal 7-21 [facility] Comment on above: Order Comment: Speci men Type: BLOOD SPECIMEN Ordering Facility: [facility] Address: [address] [place] [address] Performed By: #### 2 4323-8 #### [facility] CLIA [id number] [address] [place] [address] [place] [id number] 12-08-2023 ECG01 Ventricular Rate : 7 2 BPM Atrial Rate : 72 BPM P-R Interval : 150 ms QRS Duration : 76 ms Q-T Interval : 410 ms QTC Calculation(Bazett) : 448 ms Calculated P [place] : 67 degrees Calculated R [place] : 17 degrees Calculated T [place] : 22 degrees NORMAL SINUS RHYTHM NORMAL ECG Confirmed by DULCE BELLE DO ([id number]) on 12/11/2023 8:15:56 PM NAME : ALBERTO RODRIGUEZ PID : [id number] : 1935 Gender : Female Race : ORD : Procedure Date : Dec 08 2023 14:19:14 Edit Date : Dec 11 2023 20:15:58 Diagnosis: NORMAL SINUS RHYTHM NORMAL ECG Confirmed by DULCE BELLE DO ([id number]) on 12/11/2023 8:15:56 PM Test Reason : Location : [facility] : [facility] Overread By : DULCE BELLE DO Edited By : DULCE BELLE DO Referred By : , Acquired by : Susan vernon [facility] HISTORY PHYSICALon HISTORY PHYSICAL HNO ID: [id number] Author: ELIZABETH SMITH APRN.CNP Service: ? Author Type: Nurse Practitioner Type: H&P Filed: 12/15/2023 14:37 Note Text: [facility] HISTORY AND PHYSICAL EXAMINATION SERVICE DATE: 12/08/2023 SERVICE TIME: 2:36 PM PRIMARY CARE PHYSICIAN: Ramandeep Alvarez MD Assessment Patient has the following medical conditions which may affect kathy-operative course: Essential hypertension Assessment: controlled on rx Last 14 BP Last 14 Encounter BP Readings: Date: BP: 12/08/2023 132/78 11/08/2023 109/63 11/08/2023 104/63 09/15/2023 105/64 08/29/2023 112/64 07/11/2023 108/58 01/05/2023 123/61 09/30/2022 112/62 07/19/2022 108/64 07/08/2022 120/68 04/14/2022 118/72 12/21/2021 126/66 11/30/2021 114/70 06/18/2021 114/56 PURE HYPERCHOLESTEROLEM Assessment: c/w statin ESOPHAGEAL REFLUX Assessment: controlled on rx History of cerebral infarction Assessment: pt unaware of dx, found in [facility] with brain MRI 10/2021. Denies any deficits. Lives alone, very active. Murmur, cardiac Assessment: harsh murmur heard on exam, last echo with only trace to mild VHD, repeat echo ordered. Pt had negative stress test 2021, and today's EKG NSR. Pt denies palpitations, sob, orthopnea, GARCIA, new or worsening cardiac symptoms. MULTINODULAR GOITER (NONTOXIC) Assessment: hx, denies compressive symptoms, only imaging found was from 2008, no repeat noted in [facility] TSH Date Value Ref Range Status 07/11/2023 4.470 (H) 0.270 - 4.200 mIU/L Final 2009 Thyroid US The right lobe measured 5.2 x 1.4 x 1.8 cm. The right lobe has a heterogeneous echotexture with multiple nodules. There is some shadowing emanating from some of the nodules suggesting calcification. There is a hypoechoic nodule in the upper pole measuring 7 x 4 x 6 mm. There is a hypoechoic nodule in the midportion of the right lobe measuring 6 x 3 x 7 mm. There is a hypoechoic nodule in the posterior aspect of the midportion of the right lobe measuring 9 x 4 x 7 mm. There is also a nodule in the lower pole measuring 9 x 8 x 8 mm. The left lobe of the thyroid measured 4.9 x 1.5 x 1.8 cm. The left lobe has a heterogeneous echotexture and multiple nodules. There was also some shadowing from some of the nodules suggesting calcification. A nodule in the lower pole measured 6 x 6 x 6 mm, one in the midportion measured 12 x 8 x 12 mm and one in the mid portion measured 5 x 3 x 4 mm. The isthmus measured 2 mm in thickness. IMPRESSION: The findings are compatible with a multinodular goiter. Iron deficiency anemia Assessment: hx, following hematology Hemoglobin (g/dL) Date Value 11/08/2023 11.2 12/12/2019 12.4 Hematocrit (%) Date Value 11/08/2023 35.6 12/12/2019 40.9 WBC (k/uL) Date Value 11/08/2023 7.24 12/12/2019 6.43 Anxiety state Assessment: stable on rx per pt Osteopenia Assessment: taking supplements, no recent fx's VHD (valvular heart disease) Assessment: Ef 58% - 1-2+ mitral regurgitation - 1-2+ tricuspid regurgitation - 1+ pulmonic regurgitation Recent Results (from the past 71738 hour(s)) ECHO Collection Time: 12/15/23 10:22 AM Impression CONCLUSIONS: - Technically difficult exam due to body habitus. - Exam indication: Baseline and serial evaluation in a patient undergoing therapy with cardiotoxic agents - The left ventricle is normal in size. Left ventricular systolic function is normal. EF = 58 ? 5% (2D biplane) Grade I left ventricular diastolic dysfunction. - The right ventricle is normal in size. Right ventricular systolic function is normal. - 1-2+ mitral regurgitation - 1-2+ tricuspid regurgitation - 1+ pulmonic regurgitation - Exam was compared with the prior CC echocardiographic exam performed on 12/28/2018. Prior EF was reported to be 61%. * * * Final * * * Sharma Activity Status Index: METS: Climb a flight of stairs or walk up a hill (5.50 METs) DASI Score: 5.5 Patient denies any chest pain or undue shortness of breath with the above physical activity. Clinical Frailty Scale: 3. Well, with treated comorbid disease STOP-Bang Score: Has or is being treated for high blood pressure Patient over 50 years old Denies snoring loudly Denies feeling tired, fatigued, or sleepy during the daytime Has not been observed to stop breathing or choking/gasping during sleep BMI less than or equal to 35 kg/m2 Does not have a large neck Non-male patient STOP-Bang Score: 2 Malnutrition Screening Tool: Recent weight loss without trying: No Eating poorly due to decreased appetite: No Weight Loss Score: 0 Appetite Score: 0 MST Score: 0 MDM1YR3-YYSa Score: Age: >=75 Sex: female CHF history: No Hypertension history: Yes Stroke/TIA/thromboemboli sm history: No Vascular disease history: No Diabetes histor (more content not included)... Normal [facility] CNPNon 11-28-2023 CNPN Telephone (RUBI) -------- ALBERTO RODRIGUEZ ([id number]) 1935 F Date Time Provider Department 11/28/23 LANEY IGNACIO During your visit today, we recorded the following information about you: Jessica Sloan 11/28/2023 3:[address] Kwon's office called stating that patient is having surgery on 12/17. Patient is scheduled to see Dr. Ignacio and Jeff Velasquez on 12/18. Dr. Delgado on 12/20. Please advise when to reschedule. Okay to call patient. Melisa Pichardo LPN 11/28/2023 4:19 PM Signed Simple mastectomy scheduled for 12/18/2023. When would you like to see the patient (she won't be coming in as scheduled on 12/18)? CHIQUITA Pina Janice, RN 11/29/2023 8:05 AM Signed As far as Dr Delgado goes; it would be appropriate to reschedule 7-10 after surgery so we have her pathology back. Melisa Pichardo LPN 11/30/2023 3:[address] Ignacio- please move out OV with Dr. Ignacio 1-2 weeks. CHIQUITA Pina Stephanie 12/01/2023 4:54 PM Signed Spoke with patient and rescheduled as directed. Reny Lima Allergies As of Date: 11/28/2023 Noted Allergy Reaction VICODIN (HYDROCODONE-ACETAMINOPH E*04/27/2009 5 - Intolerance Date Reviewed: 11/08/2023 Reviewed by: Deshaun Kemp MA - Fully Assessed Reason for Visit: Appointment [186] Prescriptions as of 12/01/2023 - losartan (COZAAR) 25 mg tablet Take 1 tablet by mouth once daily. - pravastatin (PRAVACHOL) 40 mg tablet Take 1 tablet by mouth daily at bedtime. - amLODIPine (NORVASC) 2.5 mg tablet Take 1 tablet by mouth once daily. - nortriptyline (PAMELOR) 50 mg capsule TAKE ONE CAPSULE BY MOUTH EVERY DAY AT BEDTIME - nystatin-triamcinolone (MYCOLOG) ointment Apply sparingly to red areas both groins twice daily for irritation/infection. - gabapentin (NEURONTIN) 100 mg capsule Take 1 capsule by mouth daily at bedtime for 180 days. - potassium chloride (K-TAB) 10 mEq tablet Take 1 tablet by mouth daily with breakfast. On days she takes lasix - furosemide (LASIX) 20 mg tablet take 1 tablet by mouth every other day - >Zippered Compression Knee High 30-40 mm custom CUSTOM MEASURE FOR KNEE HIGH HO COMPRESSION STOCKINGS, 30-40 MM, WITH ZIPPERS PLEASE. IF UNABLE, PLEASE REFER TO CHUNG AT [facility]. DX: EDEMA - multivitamin tablet Take 1 tablet by mouth once daily. - Aspirin 81 mg Tab Take 81 mg by mouth once daily. - cholecalciferol (VITAMIN D3) 50 mcg (2,000 unit) tablet Take by mouth once daily. 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] 05/02/2005 ESOPHAGEAL REFLUX [K21.9] 05/02/2005 PAIN ABDOMEN( Right Upper Quadrant) [R10.11] 07/16/2007 GASTRITIS ANTRAL( W/O Hemorrhage) [K29.60] 07/27/2007 ACUTE GASTRITIS W/O HEMORRHAGE [K29.00] 07/27/2007 CHOLECYSTITIS SEE ALSO GALLBLADDER CHRONIC [K*08/13/2007 Dysuria [R30.0] 08/16/2007 06/27/2014 MULTINODULAR GOITER (NONTOXIC) [E04.2] 10/30/2008 Hot flash, menopausal [N95.1] 06/21/2011 06/27/2014 PHN (postherpetic neuralgia) [B02.29] 02/06/2012 Postherpetic neuralgia [B02.29] 06/14/2012 06/27/2014 Pinched nerve in neck [G58.9] 01/31/2018 Hot flashes [R23.2] 09/21/2018 Essential hypertension [I10] 04/14/2022 Pain of left hip joint [M25.552] 07/19/2022 Encounter Status:Closed by RENY LIMA on 12/01/23 [facility] CNPNon 11-23-2023 CNPN Telephone (BRCRBD) -------- ALBERTO RODRIGUEZ ([id number]) 1935 F Date Time Provider Department 11/23/23 LOY KWON BRCRBD During your visit today, we recorded the following information about you: Loy Kwon MD 11/23/2023 9:52 AM Signed LOCALIZATION IMAGE REVIEW (Please do NOT submit until entire workup complete) (if > 3 reflectors to be placed in one breast, please review with radiologist) Alberto Rodriguez [id number] 1935 WORK- UP COMPLETE? Yes Order Placed Yes Left - Site 1 Location 11oc 3cfn Clip Shape Q Clip Migration No Pathology [facility] Preferred Localization jazmyn Kwon MD 9:52 AM Clarisa Villegas MD 11/27/2023 1:20 PM Signed I have reviewed and approved the localization plan. Images dated 11/20/2023 are annotated. Please note, patient has known right breast cancer for which mastectomy is planned. Radiologist: Clarisa Villegas MD Allergies As of Date: 11/23/2023 Noted Allergy Reaction VICODIN (HYDROCODONE-ACETAMINOPH E*04/27/2009 5 - Intolerance Date Reviewed: 11/08/2023 Reviewed by: Deshaun Kemp MA - Fully Assessed Reason for Visit: Breast Localization [4188] Prescriptions as of 11/27/2023 - nystatin-triamcinolone (MYCOLOG) ointment Apply sparingly to red areas both groins twice daily for irritation/infection. - gabapentin (NEURONTIN) 100 mg capsule Take 1 capsule by mouth daily at bedtime for 180 days. - nortriptyline (PAMELOR) 50 mg capsule TAKE ONE CAPSULE BY MOUTH EVERY DAY AT BEDTIME - pravastatin (PRAVACHOL) 40 mg tablet Take 1 tablet by mouth daily at bedtime. - losartan (COZAAR) 25 mg tablet Take 1 tablet by mouth once daily. - potassium chloride (K-TAB) 10 mEq tablet Take 1 tablet by mouth daily with breakfast. On days she takes lasix - furosemide (LASIX) 20 mg tablet take 1 tablet by mouth every other day - amLODIPine (NORVASC) 2.5 mg tablet Take 1 tablet by mouth once daily. - >Zippered Compression Knee High 30-40 mm custom CUSTOM MEASURE FOR KNEE HIGH HO COMPRESSION STOCKINGS, 30-40 MM, WITH ZIPPERS PLEASE. IF UNABLE, PLEASE REFER TO CHUNG AT [facility]. DX: EDEMA - multivitamin tablet Take 1 tablet by mouth once daily. - Aspirin 81 mg Tab Take 81 mg by mouth once daily. - cholecalciferol (VITAMIN D3) 50 mcg (2,000 unit) tablet Take by mouth once daily. 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] 05/02/2005 ESOPHAGEAL REFLUX [K21.9] 05/02/2005 PAIN ABDOMEN( Right Upper Quadrant) [R10.11] 07/16/2007 GASTRITIS ANTRAL( W/O Hemorrhage) [K29.60] 07/27/2007 ACUTE GASTRITIS W/O HEMORRHAGE [K29.00] 07/27/2007 CHOLECYSTITIS SEE ALSO GALLBLADDER CHRONIC [K*08/13/2007 Dysuria [R30.0] 08/16/2007 06/27/2014 MULTINODULAR GOITER (NONTOXIC) [E04.2] 10/30/2008 Hot flash, menopausal [N95.1] 06/21/2011 06/27/2014 PHN (postherpetic neuralgia) [B02.29] 02/06/2012 Postherpetic neuralgia [B02.29] 06/14/2012 06/27/2014 Pinched nerve in neck [G58.9] 01/31/2018 Hot flashes [R23.2] 09/21/2018 Essential hypertension [I10] 04/14/2022 Pain of left hip joint [M25.552] 07/19/2022 Encounter Status:Closed by CLARISA VILLEGAS on 11/27/23 [facility] CNPN Telephone (BRCRBD) -------- ALBERTO RODRIGUEZ ([id number]) 1935 F Date Time Provider Department 11/23/23 KIMBERLY CHAVEZ During your visit today, we recorded the following information about you: Kimberly Chavez PA-C 11/23/2023 2:46 PM Signed Attempted to contact patient re: surgery date Left detailed VM Requested callback for confirmation Surgery date: 12/17 Kimberly Chavez PA-C November 23, 2023 2:46 PM Allergies As of Date: 11/23/2023 Noted Allergy Reaction VICODIN (HYDROCODONE-ACETAMINOPH E*04/27/2009 5 - Intolerance Date Reviewed: 11/08/2023 Reviewed by: Deshaun Kemp MA - Fully Assessed Reason for Visit: Schedule Surgery [1330] Prescriptions as of 11/23/2023 - nystatin-triamcinolone (MYCOLOG) ointment Apply sparingly to red areas both groins twice daily for irritation/infection. - gabapentin (NEURONTIN) 100 mg capsule Take 1 capsule by mouth daily at bedtime for 180 days. - nortriptyline (PAMELOR) 50 mg capsule TAKE ONE CAPSULE BY MOUTH EVERY DAY AT BEDTIME - pravastatin (PRAVACHOL) 40 mg tablet Take 1 tablet by mouth daily at bedtime. - losartan (COZAAR) 25 mg tablet Take 1 tablet by mouth once daily. - potassium chloride (K-TAB) 10 mEq tablet Take 1 tablet by mouth daily with breakfast. On days she takes lasix - furosemide (LASIX) 20 mg tablet take 1 tablet by mouth every other day - amLODIPine (NORVASC) 2.5 mg tablet Take 1 tablet by mouth once daily. - >Zippered Compression Knee High 30-40 mm custom CUSTOM MEASURE FOR KNEE HIGH HO COMPRESSION STOCKINGS, 30-40 MM, WITH ZIPPERS PLEASE. IF UNABLE, PLEASE REFER TO CHUNG AT [facility]. DX: EDEMA - multivitamin tablet Take 1 tablet by mouth once daily. - Aspirin 81 mg Tab Take 81 mg by mouth once daily. - cholecalciferol (VITAMIN D3) 50 mcg (2,000 unit) tablet Take by mouth once daily. 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] 05/02/2005 ESOPHAGEAL REFLUX [K21.9] 05/02/2005 PAIN ABDOMEN( Right Upper Quadrant) [R10.11] 07/16/2007 GASTRITIS ANTRAL( W/O Hemorrhage) [K29.60] 07/27/2007 ACUTE GASTRITIS W/O HEMORRHAGE [K29.00] 07/27/2007 CHOLECYSTITIS SEE ALSO GALLBLADDER CHRONIC [K*08/13/2007 Dysuria [R30.0] 08/16/2007 06/27/2014 MULTINODULAR GOITER (NONTOXIC) [E04.2] 10/30/2008 Hot flash, menopausal [N95.1] 06/21/2011 06/27/2014 PHN (postherpetic neuralgia) [B02.29] 02/06/2012 Postherpetic neuralgia [B02.29] 06/14/2012 06/27/2014 Pinched nerve in neck [G58.9] 01/31/2018 Hot flashes [R23.2] 09/21/2018 Essential hypertension [I10] 04/14/2022 Pain of left hip joint [M25.552] 07/19/2022 Encounter Status:Closed by KIMBERLY CHAVEZ on 11/23/23 [facility] CNPN Telephone (BRCRBD) -------- ALBERTO RODRIGUEZ ([id number]) 1935 F Date Time Provider Department 11/23/23 LOY KWON BRCRBD During your visit today, we recorded the following information about you: Loy Kwon MD 11/23/2023 9:53 AM Signed reached patient this morning reviewed all of the biopsies she has had and the corresponding path reports multiple questions answered and clarified will proceed with scheduling R-SM-SLNB and LEFT JAZMYN excisional biopsy questions answered Loy Kwon MD 9:53 AM Allergies As of Date: 11/23/2023 Noted Allergy Reaction VICODIN (HYDROCODONE-ACETAMINOPH E*04/27/2009 5 - Intolerance Date Reviewed: 11/08/2023 Reviewed by: Deshaun Kemp MA - Fully Assessed Reason for Visit: Results [95] Primary Visit Diagnosis:Abnormal finding on breast imaging [R92.8] Order(s):VALERI NDL LOC W VALERI GD LEFT [[id number]] Order #: [id number] FUTURE Prescriptions as of 11/23/2023 - nystatin-triamcinolone (MYCOLOG) ointment Apply sparingly to red areas both groins twice daily for irritation/infection. - gabapentin (NEURONTIN) 100 mg capsule Take 1 capsule by mouth daily at bedtime for 180 days. - nortriptyline (PAMELOR) 50 mg capsule TAKE ONE CAPSULE BY MOUTH EVERY DAY AT BEDTIME - pravastatin (PRAVACHOL) 40 mg tablet Take 1 tablet by mouth daily at bedtime. - losartan (COZAAR) 25 mg tablet Take 1 tablet by mouth once daily. - potassium chloride (K-TAB) 10 mEq tablet Take 1 tablet by mouth daily with breakfast. On days she takes lasix - furosemide (LASIX) 20 mg tablet take 1 tablet by mouth every other day - amLODIPine (NORVASC) 2.5 mg tablet Take 1 tablet by mouth once daily. - >Zippered Compression Knee High 30-40 mm custom CUSTOM MEASURE FOR KNEE HIGH HO COMPRESSION STOCKINGS, 30-40 MM, WITH ZIPPERS PLEASE. IF UNABLE, PLEASE REFER TO CHUNG AT [facility]. DX: EDEMA - multivitamin tablet Take 1 tablet by mouth once daily. - Aspirin 81 mg Tab Take 81 mg by mouth once daily. - cholecalciferol (VITAMIN D3) 50 mcg (2,000 unit) tablet Take by mouth once daily. 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] 05/02/2005 ESOPHAGEAL REFLUX [K21.9] 05/02/2005 PAIN ABDOMEN( Right Upper Quadrant) [R10.11] 07/16/2007 GASTRITIS ANTRAL( W/O Hemorrhage) [K29.60] 07/27/2007 ACUTE GASTRITIS W/O HEMORRHAGE [K29.00] 07/27/2007 CHOLECYSTITIS SEE ALSO GALLBLADDER CHRONIC [K*08/13/2007 Dysuria [R30.0] 08/16/2007 06/27/2014 MULTINODULAR GOITER (NONTOXIC) [E04.2] 10/30/2008 Hot flash, menopausal [N95.1] 06/21/2011 06/27/2014 PHN (postherpetic neuralgia) [B02.29] 02/06/2012 Postherpetic neuralgia [B02.29] 06/14/2012 06/27/2014 Pinched nerve in neck [G58.9] 01/31/2018 Hot flashes [R23.2] 09/21/2018 Essential hypertension [I10] 04/14/2022 Pain of left hip joint [M25.552] 07/19/2022 Encounter Status:Closed by LOY KWON on 11/23/23 [facility] 11-22-2023 CNPN Telephone (BRCRMN) -------- ALBERTO RODRIGUEZ ([id number]) 1935 F Date Time Provider Department 11/22/23 LOY KWON BRCRMN During your visit today, we recorded the following information about you: Shahid Xavier 11/22/2023 4:45 PM Signed Pt returning call from Dr. Kwon she is available now at [phone], she is requesting to speak with Dr. Kwon. Allergies As of Date: 11/22/2023 Noted Allergy Reaction VICODIN (HYDROCODONE-ACETAMINOPH E*04/27/2009 5 - Intolerance Date Reviewed: 11/08/2023 Reviewed by: Deshaun Kemp MA - Fully Assessed Prescriptions as of 08/27/2024 - gabapentin (NEURONTIN) 100 mg capsule Take 1 capsule by mouth daily at bedtime for 180 days. - acetaminophen (TYLENOL) 325 mg tablet Take 650 mg by mouth every 6 hours as needed. - anastrozole (ARIMIDEX) 1 mg tablet Take 1 tablet by mouth once daily. - losartan (COZAAR) 25 mg tablet Take 1 tablet by mouth once daily. - pravastatin (PRAVACHOL) 40 mg tablet Take 1 tablet by mouth daily at bedtime. - amLODIPine (NORVASC) 2.5 mg tablet Take 1 tablet by mouth once daily. - nortriptyline (PAMELOR) 50 mg capsule TAKE ONE CAPSULE BY MOUTH EVERY DAY AT BEDTIME - potassium chloride (K-TAB) 10 mEq tablet Take 1 tablet by mouth daily with breakfast. On days she takes lasix - furosemide (LASIX) 20 mg tablet take 1 tablet by mouth every other day - >Zippered Compression Knee High 30-40 mm custom CUSTOM MEASURE FOR KNEE HIGH HO COMPRESSION STOCKINGS, 30-40 MM, WITH ZIPPERS PLEASE. IF UNABLE, PLEASE REFER TO [facility]. DX: EDEMA - multivitamin tablet Take 1 tablet by mouth once daily. - Aspirin 81 mg Tab Take 81 mg by mouth once daily. - cholecalciferol (VITAMIN D3) 50 mcg (2,000 unit) tablet Take by mouth once daily. 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] 05/02/2005 ESOPHAGEAL REFLUX [K21.9] 05/02/2005 PAIN ABDOMEN( Right Upper Quadrant) [R10.11] 07/16/2007 GASTRITIS ANTRAL( W/O Hemorrhage) [K29.60] 07/27/2007 ACUTE GASTRITIS W/O HEMORRHAGE [K29.00] 07/27/2007 CHOLECYSTITIS SEE ALSO GALLBLADDER CHRONIC [K*08/13/2007 Dysuria [R30.0] 08/16/2007 06/27/2014 MULTINODULAR GOITER (NONTOXIC) [E04.2] 10/30/2008 Hot flash, menopausal [N95.1] 06/21/2011 06/27/2014 PHN (postherpetic neuralgia) [B02.29] 02/06/2012 Postherpetic neuralgia [B02.29] 06/14/2012 06/27/2014 Pinched nerve in neck [G58.9] 01/31/2018 Hot flashes [R23.2] 09/21/2018 Essential hypertension [I10] 04/14/2022 Pain of left hip joint [M25.552] 07/19/2022 Encounter Status:Closed by SHAHID XAVIER on 08/27/24 [facility] CNPN Telephone (RADMN) -------- ALBERTO RODRIGUEZ ([id number]) 1935 F Date Time Provider Department 11/22/23 GEORGINA CROOKS RADLA During your visit today, we recorded the following information about you: Allergies As of Date: 11/22/2023 Noted Allergy Reaction VICODIN (HYDROCODONE-ACETAMINOPH E*04/27/2009 5 - Intolerance Date Reviewed: 11/08/2023 Reviewed by: Deshaun Kemp MA - Fully Assessed Reason for Visit: Results [95] Prescriptions as of 11/22/2023 - nystatin-triamcinolone (MYCOLOG) ointment Apply sparingly to red areas both groins twice daily for irritation/infection. - gabapentin (NEURONTIN) 100 mg capsule Take 1 capsule by mouth daily at bedtime for 180 days. - nortriptyline (PAMELOR) 50 mg capsule TAKE ONE CAPSULE BY MOUTH EVERY DAY AT BEDTIME - pravastatin (PRAVACHOL) 40 mg tablet Take 1 tablet by mouth daily at bedtime. - losartan (COZAAR) 25 mg tablet Take 1 tablet by mouth once daily. - potassium chloride (K-TAB) 10 mEq tablet Take 1 tablet by mouth daily with breakfast. On days she takes lasix - furosemide (LASIX) 20 mg tablet take 1 tablet by mouth every other day - amLODIPine (NORVASC) 2.5 mg tablet Take 1 tablet by mouth once daily. - >Zippered Compression Knee High 30-40 mm custom CUSTOM MEASURE FOR KNEE HIGH HO COMPRESSION STOCKINGS, 30-40 MM, WITH ZIPPERS PLEASE. IF UNABLE, PLEASE REFER TO [facility]. DX: EDEMA - multivitamin tablet Take 1 tablet by mouth once daily. - Aspirin 81 mg Tab Take 81 mg by mouth once daily. - cholecalciferol (VITAMIN D3) 50 mcg (2,000 unit) tablet Take by mouth once daily. 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] 05/02/2005 ESOPHAGEAL REFLUX [K21.9] 05/02/2005 PAIN ABDOMEN( Right Upper Quadrant) [R10.11] 07/16/2007 GASTRITIS ANTRAL( W/O Hemorrhage) [K29.60] 07/27/2007 ACUTE GASTRITIS W/O HEMORRHAGE [K29.00] 07/27/2007 CHOLECYSTITIS SEE ALSO GALLBLADDER CHRONIC [K*08/13/2007 Dysuria [R30.0] 08/16/2007 06/27/2014 MULTINODULAR GOITER (NONTOXIC) [E04.2] 10/30/2008 Hot flash, menopausal [N95.1] 06/21/2011 06/27/2014 PHN (postherpetic neuralgia) [B02.29] 02/06/2012 Postherpetic neuralgia [B02.29] 06/14/2012 06/27/2014 Pinched nerve in neck [G58.9] 01/31/2018 Hot flashes [R23.2] 09/21/2018 Essential hypertension [I10] 04/14/2022 Pain of left hip joint [M25.552] 07/19/2022 Encounter Status:Closed by GEORGINA CROOKS on 11/22/23 [facility] Telephone (BRCRBD) -------- ALBERTO RODRIGUEZ ([id number]) 1935 F Date Time Provider Department 11/22/23 LOY KWON [employer] During your visit today, we recorded the following information about you: Loy Kwon MD 11/22/2023 8:42 AM Signed LVM - calling to review recent MR biopsy result asked her to return my call Loy Kwon MD 8:41 AM [facility] 11[facility]22/2023 2:49 PM Addendum Patient returned your call and can be reached at [phone] until [phone] and returning [phone]. Thanks Allergies As of Date: 11/22/2023 Noted Allergy Reaction VICODIN (HYDROCODONE-ACETAMINOPH E*04/27/2009 5 - Intolerance Date Reviewed: 11/08/2023 Reviewed by: Deshaun Kemp MA - Fully Assessed Reason for Visit: mri biopsy result [Other] Prescriptions as of 11/22/2023 - nystatin-triamcinolone (MYCOLOG) ointment Apply sparingly to red areas both groins twice daily for irritation/infection. - gabapentin (NEURONTIN) 100 mg capsule Take 1 capsule by mouth daily at bedtime for 180 days. - nortriptyline (PAMELOR) 50 mg capsule TAKE ONE CAPSULE BY MOUTH EVERY DAY AT BEDTIME - pravastatin (PRAVACHOL) 40 mg tablet Take 1 tablet by mouth daily at bedtime. - losartan (COZAAR) 25 mg tablet Take 1 tablet by mouth once daily. - potassium chloride (K-TAB) 10 mEq tablet Take 1 tablet by mouth daily with breakfast. On days she takes lasix - furosemide (LASIX) 20 mg tablet take 1 tablet by mouth every other day - amLODIPine (NORVASC) 2.5 mg tablet Take 1 tablet by mouth once daily. - >Zippered Compression Knee High 30-40 mm custom CUSTOM MEASURE FOR KNEE HIGH HO COMPRESSION STOCKINGS, 30-40 MM, WITH ZIPPERS PLEASE. IF UNABLE, PLEASE REFER TO [facility]. DX: EDEMA - multivitamin tablet Take 1 tablet by mouth once daily. - Aspirin 81 mg Tab Take 81 mg by mouth once daily. - cholecalciferol (VITAMIN D3) 50 mcg (2,000 unit) tablet Take by mouth once daily. 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] 05/02/2005 ESOPHAGEAL REFLUX [K21.9] 05/02/2005 PAIN ABDOMEN( Right Upper Quadrant) [R10.11] 07/16/2007 GASTRITIS ANTRAL( W/O Hemorrhage) [K29.60] 07/27/2007 ACUTE GASTRITIS W/O HEMORRHAGE [K29.00] 07/27/2007 CHOLECYSTITIS SEE ALSO GALLBLADDER CHRONIC [K*08/13/2007 Dysuria [R30.0] 08/16/2007 06/27/2014 MULTINODULAR GOITER (NONTOXIC) [E04.2] 10/30/2008 Hot flash, menopausal [N95.1] 06/21/2011 06/27/2014 PHN (postherpetic neuralgia) [B02.29] 02/06/2012 Postherpetic neuralgia [B02.29] 06/14/2012 06/27/2014 Pinched nerve in neck [G58.9] 01/31/2018 Hot flashes [R23.2] 09/21/2018 Essential hypertension [I10] 04/14/2022 Pain of left hip joint [M25.552] 07/19/2022 Encounter Status:Closed by LOY KWON on 11/22/23 Normal [facility] 11-20[facility]19 [facility] * * *Final Report* * * * * * SEE BOTTOM OF REPORT FOR ADDENDED TEXT * * * DATE OF EXAM: Nov 20 2023 2:55PM [facility] 0621 - [facility] / PROCEDURE REASON: Abnormal MRI, breast * * * * Physician Interpretation * * * * RESULT: [place] [address] - - - - - - - - - - ADDENDED REPORT - - - - - - - - - - 11/22/2023 at 12:07:19 Addendum: The final pathology results of the patient's MRI guided core biopsy demonstrate the following; Site 1 - (left breast) Pseudoangiomatous Stromal Hyperplasia, Fibrocystic Changes And Ductal Hyperplasia, Usual. This is concordant with the imaging findings. RECOMMENDATION Site 1: Post Biopsy: Return to screen NOTE that this patient has RIGHT breast cancer and will follow up with her surgeon for further management recommendations on the RIGHT. - - - - - - - - - - ORIGINAL REPORT - - - - - - - - - - HISTORY: Patient presents today for MRI guided biopsy of non-mass enhancement in the left breast identified on recent MRI. PATIENT CONSENT: The procedure was explained to the patient including the benefits and alternatives. Medications were discussed. The risks, including but not limited to infection and bleeding, were reviewed by the performing physician and the patient agreed to undergo the procedure. Verbal and written consent were obtained. Prior to the procedure, an Audible Time Out was done to verify patient identification, site of procedure and type of procedure. The procedure was performed by Dr. Olsen with Dr. Thompson as an psychiatric nursing assistant. Dr. Olsen was present for all giang portions of the procedure. Audible Time Out Time: 1400 Procedure Start Time: 1401 Procedure Stop Time: 1409 TECHNIQUE: The patient was studied using a dedicated breast biopsy coil in the Siemens 1.5 Bisi scanner. Initial coronal T1 localizer was obtained followed by axial T1-weighted GRE imaging both before and after 12 mL of Dotarem. Subsequently, the lesion was localized on an independent workstation. PROCEDURE: Correlation is made to exams dated: An MRI biopsy was performed for the concerning non-mass enhancement located in the left breast, upper inner. This was described on the previous MRI report. The skin was prepped in the usual manner. Local anesthetic was administered to the access site. The abnormality was approached from the lateral aspect. A 9 gauge biopsy needle was placed adjacent to the abnormality under MRI guidance. Additional MRI images were obtained to document needle placement. Once the needle was documented to be in the correct location, 6 specimens were obtained using the Secure Computing system. The patient received additional local anesthetic during the procedure. An HOURGLASS-shaped clip was inserted into the biopsy cavity. A skin closure strip and a sterile dressing were applied to the access site. Post procedure mammographic and MRI imaging demonstrates the biopsy marker at the targeted area. The specimens were sent to the laboratory for pathological analysis. IMPRESSION: MRI BIOPSY MRI biopsy of the LEFT breast non-mass enhancement in the upper inner quadrant with placement of an HOURGLASS clip was successful with no apparent post procedure complications. Waiting for pathology results. A final report will be issued when these become available. Executive Assistant: ALBA Transcribe Date/Time: Nov 20 2023 2:41P Dictated by : MARIA INES OLSEN MD This examination was interpreted and the report reviewed and electronically signed by: MARIA INES OLSEN MD on Nov 20 2023 4:38PM EST This document has been addended by: MARIA INES OLSEN MD on Nov 22 2023 12:07PM EST [id number] Normal [facility] Breast - left Diagnostic for implanton 11-20-2023 IMPRESSION: MRI BIOP SY MRI biopsy of the LEFT breast non-mass enhancement in the upper inner quadrant with placement of an HOURGLASS clip was successful with no apparent post procedure complications. Waiting for pathology results. A final report will be issued when these become available. Executive Assistant: ALBA Transcribe Date/Time: Nov 20 2023 2:41P Dictated by : MARIA INES OLSEN MD This examination was interpreted and the report reviewed and electronically signed by: MARIA INES OLSEN MD on Nov 20 2023 4:38PM [facility] DIVISION OF RADIOLOGY * * *Final Report* * * DATE OF EXAM: Nov 20 2023 2:55PM [facility] 0621 - [facility] / PROCEDURE REASON: Abnormal MRI, breast * * * * Physician Interpretation * * * * RESULT: [place] [id number] [facility] [address]K [address] [place] [id number] HISTORY: Patient presents today for MRI guided biopsy of non-mass enhancement in the left breast identified on recent MRI. PATIENT CONSENT: The procedure was explained to the patient including the benefits and alternatives. Medications were discussed. The risks, including but not limited to infection and bleeding, were reviewed by the performing physician and the patient agreed to undergo the procedure. Verbal and written consent were obtained. Prior to the procedure, an Audible Time Out was done to verify patient identification, site of procedure and type of procedure. The procedure was performed by Dr. Olsen with Dr. Thompson as an psychiatric nursing assistant. Dr. Olsen was present for all giang portions of the procedure. Audible Time Out Time: 1400 Procedure Start Time: 1401 Procedure Stop Time: 1409 TECHNIQUE: The patient was studied using a dedicated breast biopsy coil in the Siemens 1.5 Bisi scanner. Initial coronal T1 localizer was obtained followed by axial T1-weighted GRE imaging both before and after 12 mL of Dotarem. Subsequently, the lesion was localized on an independent workstation. PROCEDURE: Correlation is made to exams dated: An MRI biopsy was performed for the concerning non-mass enhancement located in the left breast, upper inner. This was described on the previous MRI report. The skin was prepped in the usual manner. Local anesthetic was administered to the access site. The abnormality was approached from the lateral aspect. A 9 gauge biopsy needle was placed adjacent to the abnormality under MRI guidance. Additional MRI images were obtained to document needle placement. Once the needle was documented to be in the correct location, 6 specimens were obtained using the Secure Computing system. The patient received additional local anesthetic during the procedure. An HOURGLASS-shaped clip was inserted into the biopsy cavity. A skin closure strip and a sterile dressing were applied to the access site. Post procedure mammographic and MRI imaging demonstrates the biopsy marker at the targeted area. The specimens were sent to the laboratory for pathological analysis. DIVISION OF RADIOLOGY Provider, [facility] - 11/20/2023 * * *Final Report* * * DATE OF EXAM: Nov 20 2023 2:55PM [facility] 0621 - [facility] / PROCEDURE REASON: Abnormal MRI, breast * * * * Physician Interpretation * * * * RESULT: [address] [place] [id number] HISTORY: Patient presents today for MRI guided biopsy of non-mass enhancement in the left breast identified on recent MRI. PATIENT CONSENT: The procedure was explained to the patient including the benefits and alternatives. Medications were discussed. The risks, including but not limited to infection and bleeding, were reviewed by the performing physician and the patient agreed to undergo the procedure. Verbal and written consent were obtained. Prior to the procedure, an Audible Time Out was done to verify patient identification, site of procedure and type of procedure. The procedure was performed by Dr. Olsen with Dr. Thompson as an psychiatric nursing assistant. Dr. Olsen was present for all giang portions of the procedure. Audible Time Out Time: 1400 Procedure Start Time: 1401 Procedure Stop Time: 1409 TECHNIQUE: The patient was studied using a dedicated breast biopsy coil in the Siemens 1.5 Bisi scanner. Initial coronal T1 localizer was obtained followed by axial T1-weighted GRE imaging both before and after 12 mL of Dotarem. Subsequently, the lesion was localized on an independent workstation. PROCEDURE: Correlation is made to exams dated: An MRI biopsy was performed for the concerning non-mass enhancement located in the left breast, upper inner. This was described on the previous MRI report. The skin was prepped in the usual manner. Local anesthetic was administered to the access site. The abnormality was approached from the lateral aspect. A 9 gauge biopsy needle was placed adjacent to the abnormality under MRI guidance. Additional MRI images were obtained to document needle placement. Once the needle was documented to be in the correct location, 6 specimens were obtained using the Secure Computing system. The patient received additional local anesthetic during the procedure. An HOURGLASS-shaped clip was inserted into the biopsy cavity. A skin closure strip and a sterile dressing were applied to the access site. Post procedure mammographic and MRI imaging demonstrates the biopsy marker at the targeted area. The specimens were sent to the laboratory for pathological analysis. IMPRESSION IMPRESSION: MRI BIOPSY MRI biopsy of the LEFT breast non-mass enhancement in the upper inner quadrant with placement of an HOURGLASS clip was successful with no apparent post procedure complications. Waiting for pathology results. A final report will be issued when these become available. Executive Assistant: ALBA Transcribe Date/Time: Nov 20 2023 2:41P Dictated by : MARIA INES OLSEN MD This examination was interpreted and the report reviewed and electronically signed by: MARIA INES OLSEN MD on Nov 20 2023 4:38PM EST [facility] Radiology Study observation (narrative) [facility] MR Breast - left WO and W co ntrast Dalia 11-20-2023 IMPRESSION: MRI BIOP SY MRI biopsy of the LEFT breast non-mass enhancement in the upper inner quadrant with placement of an HOURGLASS clip was successful with no apparent post procedure complications. Waiting for pathology results. A final report will be issued when these become available. Executive Assistant: ALBA Transcribe Date/Time: Nov 20 2023 1:28P Dictated by : MARIA INES OLSEN MD This examination was interpreted and the report reviewed and electronically signed by: MARIA INES OLSEN MD on Nov 20 2023 4:38PM [facility] DIVISION OF RADIOLOGY * * *Final Report* * * DATE OF EXAM: Nov 20 2023 2:29PM [facility] 0695 - MRI BREAST BX WO/W IVCON LT / PROCEDURE REASON: Abnormal MRI, breast * * * * Physician Interpretation * * * * [place] [address] HISTORY: Patient presents today for MRI guided biopsy of non-mass enhancement in the left breast identified on recent MRI. PATIENT CONSENT: The procedure was explained to the patient including the benefits and alternatives. Medications were discussed. The risks, including but not limited to infection and bleeding, were reviewed by the performing physician and the patient agreed to undergo the procedure. Verbal and written consent were obtained. Prior to the procedure, an Audible Time Out was done to verify patient identification, site of procedure and type of procedure. The procedure was performed by Dr. Olsen with Dr. Thompson as an psychiatric nursing assistant. Dr. Olsen was present for all giang portions of the procedure. Audible Time Out Time: 1400 Procedure Start Time: 1401 Procedure Stop Time: 1409 TECHNIQUE: The patient was studied using a dedicated breast biopsy coil in the Siemens 1.5 Bisi scanner. Initial coronal T1 localizer was obtained followed by axial T1-weighted GRE imaging both before and after 12 mL of Dotarem. Subsequently, the lesion was localized on an independent workstation. PROCEDURE: Correlation is made to exams dated: An MRI biopsy was performed for the concerning non-mass enhancement located in the left breast, upper inner. This was described on the previous MRI report. The skin was prepped in the usual manner. Local anesthetic was administered to the access site. The abnormality was approached from the lateral aspect. A 9 gauge biopsy needle was placed adjacent to the abnormality under MRI guidance. Additional MRI images were obtained to document needle placement. Once the needle was documented to be in the correct location, 6 specimens were obtained using the Secure Computing system. The patient received additional local anesthetic during the procedure. An HOURGLASS-shaped clip was inserted into the biopsy cavity. A skin closure strip and a sterile dressing were applied to the access site. Post procedure mammographic and MRI imaging demonstrates the biopsy marker at the targeted area. The specimens were sent to the laboratory for pathological analysis. DIVISION OF RADIOLOGY Provider, [facility] - 11/20/2023 * * *Final Report* * * DATE OF EXAM: Nov 20 2023 2:29PM [facility] 0695 - MRI BREAST BX WO/W IVCON LT / PROCEDURE REASON: Abnormal MRI, breast * * * * Physician Interpretation * * * * [place] [address] HISTORY: Patient presents today for MRI guided biopsy of non-mass enhancement in the left breast identified on recent MRI. PATIENT CONSENT: The procedure was explained to the patient including the benefits and alternatives. Medications were discussed. The risks, including but not limited to infection and bleeding, were reviewed by the performing physician and the patient agreed to undergo the procedure. Verbal and written consent were obtained. Prior to the procedure, an Audible Time Out was done to verify patient identification, site of procedure and type of procedure. The procedure was performed by Dr. Olsen with Dr. Thompson as an psychiatric nursing assistant. Dr. Olsen was present for all giang portions of the procedure. Audible Time Out Time: 1400 Procedure Start Time: 1401 Procedure Stop Time: 1408 TECHNIQUE: The patient was studied using a dedicated breast biopsy coil in the Siemens 1.5 Bisi scanner. Initial coronal T1 localizer was obtained followed by axial T1-weighted GRE imaging both before and after 12 mL of Dotarem. Subsequently, the lesion was localized on an independent workstation. PROCEDURE: Correlation is made to exams dated: An MRI biopsy was performed for the concerning non-mass enhancement located in the left breast, upper inner. This was described on the previous MRI report. The skin was prepped in the usual manner. Local anesthetic was administered to the access site. The abnormality was approached from the lateral aspect. A 9 gauge biopsy needle was placed adjacent to the abnormality under MRI guidance. Additional MRI images were obtained to document needle placement. Once the needle was documented to be in the correct location, 6 specimens were obtained using the Secure Computing system. The patient received additional local anesthetic during the procedure. An HOURGLASS-shaped clip was inserted into the biopsy cavity. A skin closure strip and a sterile dressing were applied to the access site. Post procedure mammographic and MRI imaging demonstrates the biopsy marker at the targeted area. The specimens were sent to the laboratory for pathological analysis. IMPRESSION IMPRESSION: MRI BIOPSY MRI biopsy of the LEFT breast non-mass enhancement in the upper inner quadrant with placement of an HOURGLASS clip was successful with no apparent post procedure complications. Waiting for pathology results. A final report will be issued when these become available. Executive Assistant: ALBA Transcribe Date/Time: Nov 20 2023 1:28P Dictated by : MARIA INES OLSEN MD This examination was interpreted and the report reviewed and electronically signed by: MARIA INES OLSEN MD on Nov 20 2023 4:38PM [facility] Radiology Study observation (narrative) [facility] MRI BREAST BX WO/W IVCON LTo n 11-20-2023 MRI BREAST BX WO/W IVCON LT * * *Final Report* * * * * * SEE BOTTOM OF REPORT FOR ADDENDED TEXT * * * DATE OF EXAM: Nov 20 2023 2:29PM [facility] 0695 - MRI BREAST BX WO/W IVCON LT / PROCEDURE REASON: Abnormal MRI, breast * * * * Physician Interpretation * * * * [place] [address] - - - - - - - - - - ADDENDED REPORT - - - - - - - - - - 11/22/2023 at 12:07:19 Addendum: The final pathology results of the patient's MRI guided core biopsy demonstrate the following; Site 1 - (left breast) Pseudoangiomatous Stromal Hyperplasia, Fibrocystic Changes And Ductal Hyperplasia, Usual. This is concordant with the imaging findings. RECOMMENDATION Site 1: Post Biopsy: Return to screen NOTE that this patient has RIGHT breast cancer and will follow up with her surgeon for further management recommendations on the RIGHT. - - - - - - - - - - ORIGINAL REPORT - - - - - - - - - - HISTORY: Patient presents today for MRI guided biopsy of non-mass enhancement in the left breast identified on recent MRI. PATIENT CONSENT: The procedure was explained to the patient including the benefits and alternatives. Medications were discussed. The risks, including but not limited to infection and bleeding, were reviewed by the performing physician and the patient agreed to undergo the procedure. Verbal and written consent were obtained. Prior to the procedure, an Audible Time Out was done to verify patient identification, site of procedure and type of procedure. The procedure was performed by Dr. Olsen with Dr. Thompson as an psychiatric nursing assistant. Dr. Olsen was present for all giang portions of the procedure. Audible Time Out Time: 1400 Procedure Start Time: 1401 Procedure Stop Time: 1409 TECHNIQUE: The patient was studied using a dedicated breast biopsy coil in the Siemens 1.5 Bisi scanner. Initial coronal T1 localizer was obtained followed by axial T1-weighted GRE imaging both before and after 12 mL of Dotarem. Subsequently, the lesion was localized on an independent workstation. PROCEDURE: Correlation is made to exams dated: An MRI biopsy was performed for the concerning non-mass enhancement located in the left breast, upper inner. This was described on the previous MRI report. The skin was prepped in the usual manner. Local anesthetic was administered to the access site. The abnormality was approached from the lateral aspect. A 9 gauge biopsy needle was placed adjacent to the abnormality under MRI guidance. Additional MRI images were obtained to document needle placement. Once the needle was documented to be in the correct location, 6 specimens were obtained using the [employer] system. The patient received additional local anesthetic during the procedure. An HOURGLASS-shaped clip was inserted into the biopsy cavity. A skin closure strip and a sterile dressing were applied to the access site. Post procedure mammographic and MRI imaging demonstrates the biopsy marker at the targeted area. The specimens were sent to the laboratory for pathological analysis. IMPRESSION: MRI BIOPSY MRI biopsy of the LEFT breast non-mass enhancement in the upper inner quadrant with placement of an HOURGLASS clip was successful with no apparent post procedure complications. Waiting for pathology results. A final report will be issued when these become available. Executive Assistant: ALBA Transcribe Date/Time: Nov 20 2023 1:28P Dictated by : MARIA INES OLSEN MD This examination was interpreted and the report reviewed and electronically signed by: MARIA INES OLSEN MD on Nov 20 2023 4:38PM EST This document has been addended by: MARIA INES OLSEN MD on Nov 22 2023 12:07PM EST [id number] Normal [facility] No Panel InformationOrdered By: Ccf Provider on 11-20-2023 [facility] SURGICAL PATHOLOGYon 024 CASE REPORT Normal [facility] Comment on above: Order Comment: Raleigh carbajal Type: TISSUE SPECIMEN Ordering Facility: [facility] Address: [address] [place] [address] Result Comment: Surg ica Pathology Report Case: [id number] Authorizing Provider: Maria Ines Olsen MD Collected: 11/20/2023 02:07 PM Ordering Location: MRI A10 Received: 11/20/2023 05:03 PM Pathologist: Rolando Walters MD Specimen: Breast, Left, Core Biopsy, UIQ MRI biopsy - hourglass clip Performed By: #### S #### [facility] CLIA [id number] [address] [place] [address] [place] FINAL DIAGNOSIS Normal [facility] Comment on above: Order Comment: Raleigh carbajal Type: TISSUE SPECIMEN Ordering Facility: [facility] Address: [address] [place] [address] Result Comment: Left breast, UIQ, nonmass enhancement, MRI-guided core biopsy, with hourglass clip placement: - 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 RSH/rsh 11/21/23 Performed By: #### S #### [facility] CLIA [id number] [address] [place] [address] STATES OF [facility] FIN[facility] PERFORM[facility] Normal [facility] Comment on above: Order Comment: Speci men Type: TISSUE SPECIMEN Ordering Facility: [facility] Address: [address] [place] [address] Result Comment: Diag nostic interpretation performed at [facility], [address] [place] [address] CLIA# [id number] Cellars Supervisor: Tavo Roberts M.D. Performed By: #### S #### [facility] CLIA [id number] [address] [place] [address] OF [facility] GROSS DESCRIPTION Normal [facility] Comment on above: Order Comment: Speci men Type: TISSUE SPECIMEN Ordering Facility: [facility] Address: [address] [place] [address] Result Comment: A. B reast, Left, Core Biopsy Received in formalin labeled as ``left breast? are multiple segments of cylindrical tissue aggregating to 5.2 x 2.0 x 0.3 cm, yellow and of a soft consistency. The specimen was removed from the patient at 2:07 PM on 11/20/2023. On the same day, the specimen was placed in formalin at 2:09 PM. Totally submitted in formalin in two cassettes. Gross examination performed at [facility], [address] [place] [address] KK November 20, 2023 7:56 PM Performed By: #### S #### [facility] CLIA [id number] [address] [place] [address] [place] CBC W Auto Differential pane l (Bld)on 11-08-2023 Basophils (Bld) [#/Vol] 0.07 10*3/uL [facility] Basophils/100 WBC (Bld) 1.0 % [facility] Differential cell count method Nom (Bld) Auto [facility] Eosinophils (Bld) [#/Vol] 0.12 10*3/uL [facility] Eosinophils/100 WBC (Bld) 1.7 % [facility] Erythrocyte distribution width (RBC) [Ratio] 16.9 % High 11.5 - 15.0 % [facility] Hematocrit (Bld) [Volume fraction] 35.6 % Low 36.0 - 46.0 % [facility] Hemoglobin (Bld) [Mass/Vol] 11.2 g/dL Low 11.5 - 15.5 g/dL [facility] Immature granulocytes (Bld) [#/Vol] 0.03 10*3/uL [facility] Immature granulocytes/100 WBC (Bld) 0.4 % [facility] Interpretation and review of laboratory results Abnormal [facility] Lymphocytes (Bld) [#/Vol] 2.07 10*3/uL [facility] Lymphocytes/100 WBC (Bld) 28.6 % [facility] MCH (RBC) [Entitic mass] 26.7 pg 26.0 - 34.0 pg [facility] MCHC (RBC) [Mass/Vol] 31.5 g/dL 30.5 - 36.0 g/dL [facility] MCV (RBC) [Entitic vol] 85.0 fL 80.0 - 100.0 fL [facility] Monocytes (Bld) [#/Vol] 0.54 10*3/uL [facility] Monocytes/100 WBC (Bld) 7.5 % [facility] Neutrophils (Bld) [#/Vol] 4.41 10*3/uL [facility] Neutrophils/100 WBC (Bld) 60.8 % [facility] Nucleated RBC (Bld) [#/Vol] [facility] Nucleated RBC/100 WBC (Bld) [Ratio] 0.0 % /100 WBC [facility] Platelet mean volume (Bld) [Entitic vol] 8.6 fL Low 9.0 - 12.7 fL [facility] Platelets (Bld) [#/Vol] 305 10*3/uL [facility] RBC (Bld) [#/Vol] 4.19 10*6/uL 3.90 - 5.2 0 m/uL [facility] WBC (Bld) [#/Vol] 7.24 10*3/uL [facility] Basophils (Bld) [#/Vol] 0.07 10*3/uL Normal <0.11 [facility] Comment on above: Order Comment: Speci men Type: BLOOD SPECIMEN Ordering Facility: [facility] Address: [address] [place] [address] Performed By: #### 5 7021-8 #### [facility] CLIA [id number] [address] [place] [address] [place] Basophils/100 WBC (Bld) 1.0 % Normal [facility] Comment on above: Order Comment: Speci men Type: BLOOD SPECIMEN Ordering Facility: [facility] Address: [address] [place] [address] Performed By: #### 5 7021-8 #### [facility] CLIA [id number] [address] [place] [address] [place] Differential cell count method Nom (Bld) Auto Normal [facility] Comment on above: Order Comment: Speci men Type: BLOOD SPECIMEN Ordering Facility: [facility] Address: [address] [place] [address] Performed By: #### 5 7021-8 #### [facility] CLIA [id number] [address] [place] [address] [place] Eosinophils (Bld) [#/Vol] 0.12 10*3/uL Normal <0.46 [facility] Comment on above: Order Comment: Speci men Type: BLOOD SPECIMEN Ordering Facility: [facility] Address: [address] [place] [address] Performed By: #### 5 7021-8 #### [facility] CLIA [id number] [address] [place] [address] [place] Eosinophils/100 WBC (Bld) 1.7 % Normal [facility] Comment on above: Order Comment: Speci men Type: BLOOD SPECIMEN Ordering Facility: [facility] Address: [address] [place] [address] Performed By: #### 5 7021-8 #### [facility] CLIA [id number] [address] [place] [address] [place] Erythrocyte distribution width (RBC) [Ratio] 16.9 % High 11.5-15.0 [facility] Comment on above: Order Comment: Speci men Type: BLOOD SPECIMEN Ordering Facility: [facility] Address: [address] [place] [address] Performed By: #### 5 7021-8 #### [facility] CLIA [id number] [address] [place] [address] [place] Hematocrit (Bld) [Volume fraction] 35.6 % Low 36.0-46.0 [facility] Comment on above: Order Comment: Speci men Type: BLOOD SPECIMEN Ordering Facility: [facility] Address: [address] [place] [address] Performed By: #### 5 7021-8 #### [facility] CLIA [id number] [address] [place] [address] [place] Hemoglobin (Bld) [Mass/Vol] 11.2 g/dL Low 11.5-15.5 [facility] Comment on above: Order Comment: Speci men Type: BLOOD SPECIMEN Ordering Facility: [facility] Address: [address] [place] [address] Performed By: #### 5 7021-8 #### [facility] CLIA [id number] [address] [place] [address] [place] Immature granulocytes (Bld) [#/Vol] 0.03 10*3/uL Normal <0.10 [facility] Comment on above: Order Comment: Speci men Type: BLOOD SPECIMEN Ordering Facility: [facility] Address: [address] [place] [address] Performed By: #### 5 7021-8 #### [facility] CLIA [id number] [address] [place] [address] [place] Immature granulocytes/100 WBC (Bld) 0.4 % Normal [facility] Comment on above: Order Comment: Speci men Type: BLOOD SPECIMEN Ordering Facility: [facility] Address: [address] [place] [address] Performed By: #### 5 7021-8 #### [facility] CLIA [id number] [address] [place] [address] [place] Lymphocytes (Bld) [#/Vol] 2.07 10*3/uL Normal 1.00-4.00 [facility] Comment on above: Order Comment: Speci men Type: BLOOD SPECIMEN Ordering Facility: [facility] Address: [address] [place] [address] Performed By: #### 5 7021-8 #### [facility] CLIA [id number] [address] [place] [address] [place] Lymphocytes/100 WBC (Bld) 28.6 % Normal [facility] Comment on above: Order Comment: Speci men Type: BLOOD SPECIMEN Ordering Facility: [facility] Address: [address] [place] [address] Performed By: #### 5 7021-8 #### [facility] CLIA [id number] [address] [place] [address] [place] MCH (RBC) [Entitic mass] 26.7 pg Normal 26.0-34.0 [facility] Comment on above: Order Comment: Speci men Type: BLOOD SPECIMEN Ordering Facility: [facility] Address: [address] [place] [address] Performed By: #### 5 7021-8 #### [facility] CLIA [id number] [address] [place] [address] [place] MCHC (RBC) [Mass/Vol] 31.5 g/dL Normal 30.5-36.0 [facility] Comment on above: Order Comment: Speci men Type: BLOOD SPECIMEN Ordering Facility: [facility] Address: [address] [place] [address] Performed By: #### 5 7021-8 #### [facility] CLIA [id number] [address] [place] [address] [place] MCV (RBC) [Entitic vol] 85.0 fL Normal 80.0-100.0 [facility] Comment on above: Order Comment: Speci men Type: BLOOD SPECIMEN Ordering Facility: [facility] Address: [address] [place] [address] Performed By: #### 5 7021-8 #### [facility] CLIA [id number] [address] [place] [address] [place] Monocytes (Bld) [#/Vol] 0.54 10*3/uL Normal <0.87 [facility] Comment on above: Order Comment: Speci men Type: BLOOD SPECIMEN Ordering Facility: [facility] Address: [address] [place] [address] Performed By: #### 5 7021-8 #### [facility] CLIA [id number] [address] [place] [address] [place] Monocytes/100 WBC (Bld) 7.5 % Normal [facility] Comment on above: Order Comment: Speci men Type: BLOOD SPECIMEN Ordering Facility: [facility] Address: [address] [place] [address] Performed By: #### 5 7021-8 #### [facility] CLIA [id number] [address] [place] [address] [place] Neutrophils (Bld) [#/Vol] 4.41 10*3/uL Normal 1.45-7.50 [facility] Comment on above: Order Comment: Speci men Type: BLOOD SPECIMEN Ordering Facility: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 pravastatin (PRAVACHOL) 40 mg tablet Take 1 tablet by mouth daily at bedtime. - losartan (COZAAR) 25 mg tablet Take 1 tablet by mouth once daily. - potassium chloride (K-TAB) 10 mEq tablet Take 1 tablet by mouth daily with breakfast. On days she takes lasix - furosemide (LASIX) 20 mg tablet take 1 tablet by mouth every other day - amLODIPine (NORVASC) 2.5 mg tablet Take 1 tablet by mouth once daily. - >Zippered Compression Knee High 30-40 mm custom CUSTOM MEASURE FOR KNEE HIGH HO COMPRESSION STOCKINGS, 30-40 MM, WITH ZIPPERS PLEASE. IF UNABLE, PLEASE REFER TO CHUNG AT [facility]. DX: EDEMA - multivitamin tablet Take 1 tablet by mouth once daily. - Aspirin 81 mg Tab Take 81 mg by mouth once daily. - cholecalciferol (VITAMIN D3) 50 mcg (2,000 unit) tablet Take by mouth once daily. 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, M94.9] 05/02/2005 LIPOMA SKIN NEC [D17.39] 05/02/2005 ESOPHAGEAL REFLUX [K21.9] 05/02/2005 PAIN ABDOMEN( Right Upper Quadrant) [R10.11] 07/16/2007 GASTRITIS ANTRAL( W/O Hemorrhage) [K29.60] 07/27/2007 ACUTE GASTRITIS W/O HEMORRHAGE [K29.00] 07/27/2007 CHOLECYSTITIS SEE ALSO GALLBLADDER CHRONIC [K*08/13/2007 Dysuria [R30.0] 08/16/2007 06/27/2014 MULTINODULAR GOITER (NONTOXIC) [E04.2] 10/30/2008 Hot flash, menopausal [N95.1] 06/21/2011 06/27/2014 PHN (postherpetic neuralgia) [B02.29] 02/06/2012 Postherpetic neuralgia [B02.29] 06/14/2012 06/27/2014 Pinched nerve in neck [G58.9] 01/31/2018 Hot flashes [R23.2] 09/21/2018 Essential hypertension [I10] 04/14/2022 Pain of left hip joint [M25.552] 07/19/2022 Encounter Status:Closed by FANNING, LOY on 10/26/23 Normal [facility] MRI BREAST 3D POST PROCESSIN Terry 10-21-2023 MRI BREAST 3D POST PROCESSING * * *Final Report* * * DATE OF EXAM: Oct 21 2023 10:46AM [facility] 0788 - MRI BREAST 3D POST PROCESSING / PROCEDURE REASON: multiple diagnoses * * * * Physician Interpretation * * * * RESULT: #[id number] - MRI BREAST WO/W IVCON EMELIA #[id number] - MRI BREAST 3D POST PROCESSING BREAST MRI OF BOTH BREASTS: 10/21/2023 HISTORY: Multiple Diagnoses Multiple Diagnoses. RESULT: Comparison is made to exams dated: 10/19/2023 ultrasound, 10/04/2023 stereotactic biopsy, 10/04/2023 stereotactic biopsy - [facility], 08/22/2023 mammogram, 07/27/2023 mammogram, and 07/01/2021 mammogram - [facility]. MRI images were obtained with a dedicated breast coil. TECHNIQUE: Axial STIR and axial T1 weighted imaging was carried out follow by axial T1- with fat saturation imaging both before and after IV administration of 12 ml of Dotarem. Subsequently, complex volumetric analysis requiring post processing performed using a semi-automated software Kanboxacad, on an independent workstation by the physician, with images created reviewed and archived. INDICATION: Recent right breast biopsies demonstrating the following:Right breast, anterior, calcifications, stereotactic-guided core biopsy, with tophat clip placement (A): - Atypical lobular hyperplasia (ALH). - Fibrocystic changes, including usual ductal hyperplasia (UDH), dense stromal fibrosis, cysts, and apocrine metaplasia, and pseudoangiomatous stromal hyperplasia (PASH). - Microcalcifications in non-neoplastic breast epithelium. - Please see Comment I. ? 2. 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 - Microcalcifications in lobular neoplasia and non-neoplastic breast epithelium. Evaluate extent of disease prior to treatment. FINDINGS: The breast tissue is heterogeneously dense. There is nodular enhancement in the right middle lobe which probably represent chronic rounded atelectasis, as it is not significant changed compared to prior chest CT 07/09/2021. No definite axillary lymphadenopathy. Axillary lymph nodes are fairly symmetric bilaterally. There is an anterior mediastinal lymph node on series 11 image 196 at remain subcentimeter in short axis dimension. This is posterior to the internal mammary chain. No internal mammary chain lymphadenopathy. There is marked, symmetric background parenchymal enhancement of the breast tissue bilaterally, limiting sensitivity of MRI. In the upper inner middle depth left breast, there is a 1.1 x 1.3 x 0.9 cm area of nonmasslike enhancement on series 71681 image 94 and series 718 image 219, which is indeterminate. This area demonstrates persistent enhancement kinetics. Clumped areas of nonmasslike enhancement in the lower outer left breast are favored to represent areas of background parenchymal enhancement. In the 8-10:00 middle depth right breast, there is clumped nonmass-like enhancement measuring approximately 2.3 x 3.8 x 3.5 cm on example series 76410 images 63-75 and series 1018 images 90-112. The biopsy marking clip is located along the inferior aspect of this enhancement at site of known biopsy-proven malignancy. Additional clumped nonmasslike enhancement is seen in the immediate retroareolar right breast measuring 1.9 x 1.8 x 2.4 cm on series 10616 image 68-74 and series 1018 images 114-123; the biopsy marking clip is located just lateral to this enhancement, where biopsy demonstrated atypical lobular hyperplasia. This area remains suspicious.. When including both abnormal areas of enhancement, total abnormal enhancement would span approximately 6.4 cm as seen on series 86461 image 72. The area has predominantly demonstrate persistent enhancement kinetics, however there are areas of washout enhancement kinetics associated with the abnormal enhancement in the 8-10:00 middle depth region. IMPRESSION: SUSPICIOUS 1. 1.3 cm area of abnormal enhancement in the upper inner left breast, indeterminate for malignancy. Second look ultrasound is recommended to facilitate possible ultrasound guided biopsy. If not seen sonographically, an MRI guided biopsy would be recommended. 2. 3.8 cm area of abnormal combined mass and nonmasslike enhancement with mixed washout and persistent enhancement kinetics in the 8-10:00 right breast, at site of biopsy-proven malignancy. Additional 2.4 cm area of nonmasslike enhancement in the retroareolar right breast with adjacent biopsy marking clip demonstrating atypical lobular hyperplasia; this area remains somewhat suspicious/indeterminate . When including both abnormal areas of enhancement, total abnormal enhancement would span 6.4 cm. Patient has surgical/oncologic follow-up. 3. Marked background parenchymal enhancement (more content not included)... Normal [facility] MRI BREAST WO/W IVCON BILon 10-21-2023 MRI BREAST WO/W IVCON EMELIA * * *Final Report* * * DATE OF EXAM: Oct 21 2023 10:46AM HCM 0773 - MRI BREAST WO/W IVCON EMELIA / PROCEDURE REASON: multiple diagnoses * * * * Physician Interpretation * * * * RESULT: #[id number] - MRI BREAST WO/W IVCON EMELIA #[id number] - MRI BREAST 3D POST PROCESSING BREAST MRI OF BOTH BREASTS: 10/21/2023 HISTORY: Multiple Diagnoses Multiple Diagnoses. RESULT: Comparison is made to exams dated: 10/19/2023 ultrasound, 10/04/2023 stereotactic biopsy, 10/04/2023 stereotactic biopsy - [facility], 08/22/2023 mammogram, 07/27/2023 mammogram, and 07/01/2021 mammogram - [facility]. MRI images were obtained with a dedicated breast coil. TECHNIQUE: Axial STIR and axial T1 weighted imaging was carried out follow by axial T1- with fat saturation imaging both before and after IV administration of 12 ml of Dotarem. Subsequently, complex volumetric analysis requiring post processing performed using a semi-automated software Kanboxacad, on an independent workstation by the physician, with images created reviewed and archived. INDICATION: Recent right breast biopsies demonstrating the following:Right breast, anterior, calcifications, stereotactic-guided core biopsy, with tophat clip placement (A): - Atypical lobular hyperplasia (ALH). - Fibrocystic changes, including usual ductal hyperplasia (UDH), dense stromal fibrosis, cysts, and apocrine metaplasia, and pseudoangiomatous stromal hyperplasia (PASH). - Microcalcifications in non-neoplastic breast epithelium. - Please see Comment I. ? 2. 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 - Microcalcifications in lobular neoplasia and non-neoplastic breast epithelium. Evaluate extent of disease prior to treatment. FINDINGS: The breast tissue is heterogeneously dense. There is nodular enhancement in the right middle lobe which probably represent chronic rounded atelectasis, as it is not significant changed compared to prior chest CT 07/09/2021. No definite axillary lymphadenopathy. Axillary lymph nodes are fairly symmetric bilaterally. There is an anterior mediastinal lymph node on series 11 image 196 at remain subcentimeter in short axis dimension. This is posterior to the internal mammary chain. No internal mammary chain lymphadenopathy. There is marked, symmetric background parenchymal enhancement of the breast tissue bilaterally, limiting sensitivity of MRI. In the upper inner middle depth left breast, there is a 1.1 x 1.3 x 0.9 cm area of nonmasslike enhancement on series 49409 image 94 and series 718 image 219, which is indeterminate. This area demonstrates persistent enhancement kinetics. Clumped areas of nonmasslike enhancement in the lower outer left breast are favored to represent areas of background parenchymal enhancement. In the 8-10:00 middle depth right breast, there is clumped nonmass-like enhancement measuring approximately 2.3 x 3.8 x 3.5 cm on example series 81616 images 63-75 and series 1018 images 90-112. The biopsy marking clip is located along the inferior aspect of this enhancement at site of known biopsy-proven malignancy. Additional clumped nonmasslike enhancement is seen in the immediate retroareolar right breast measuring 1.9 x 1.8 x 2.4 cm on series 65189 image 68-74 and series 1018 images 114-123; the biopsy marking clip is located just lateral to this enhancement, where biopsy demonstrated atypical lobular hyperplasia. This area remains suspicious.. When including both abnormal areas of enhancement, total abnormal enhancement would span approximately 6.4 cm as seen on series 92044 image 72. The area has predominantly demonstrate persistent enhancement kinetics, however there are areas of washout enhancement kinetics associated with the abnormal enhancement in the 8-10:00 middle depth region. IMPRESSION: SUSPICIOUS 1. 1.3 cm area of abnormal enhancement in the upper inner left breast, indeterminate for malignancy. Second look ultrasound is recommended to facilitate possible ultrasound guided biopsy. If not seen sonographically, an MRI guided biopsy would be recommended. 2. 3.8 cm area of abnormal combined mass and nonmasslike enhancement with mixed washout and persistent enhancement kinetics in the 8-10:00 right breast, at site of biopsy-proven malignancy. Additional 2.4 cm area of nonmasslike enhancement in the retroareolar right breast with adjacent biopsy marking clip demonstrating atypical lobular hyperplasia; this area remains somewhat suspicious/indeterminate . When including both abnormal areas of enhancement, total abnormal enhancement would span 6.4 cm. Patient has surgical/oncologic follow-up. 3. Marked background parenchymal enhancement glynn (more content not included)... Normal [facility] CNOVon 10-19-2023 CNOV Office Visit (BRCRBD ) -------- ALBERTO RODRIGUEZ ([id number]) 1935 F Date Time Provider Department 10/19/23 11:45 AM LOY KWON BRCRBD During your visit today, we recorded the following information about you: Loy Kwon MD 10/19/2023 1:11 PM Signed NEW BREAST CANCER - INITIAL SURGICAL VISIT REFERRING PROVIDER: Ramandeep Alvarez MD SUBJECTIVE: REASON FOR TODAY'S VISIT: Breast Cancer Evaluation HISTORY of PRESENT ILLNESS: Alberto Rodriguez is a 87 year old female who presents for an evaluation of a new diagnosis of breast cancer. 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 ER 99 WY 99 Her2 FISH negative SA: TOP HAT ALH 10/21/23: MRI scheduled HISTORY OF BREAST PROCEDURE(S): ~22 years ago right excisional biopsy- for a MG abnormality- all was benign. 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 PAST MEDICAL HISTORY: PAST MEDICAL HISTORY Diagnosis Date Anxiety state, unspecified Disorder of bone and cartilage, unspecified 05/02/2005 Iron deficiency anemias Lipoma of other skin and subcutaneous tissue 05/02/2005 Pain in limb Pneumonia 2010 PURE HYPERCHOLESTEROLEM Pure hypercholesterolemia Urinary tract infection, site not specified PAST SURGICAL HISTORY: PAST SURGICAL HISTORY Procedure Laterality Date COLONOSCOPY FLX DX W/COLLJ SPEC WHEN PFRMD 07/18/03 cecal lipoma, otherwise normal COLONOSCOPY FLX DX W/COLLJ SPEC WHEN PFRMD 06/27/2017 Colonoscopy EGD TRANSORAL BIOPSY SINGLE/MULTIPLE 07/27/07 Doyle-gastritis LAPS SURG CHOLECYSTECTOMY W/CHOLANGIOGRAPHY 08-02-07 RPR 1ST INCAL/VNT HERNIA INCARCERATED 08-02-07 TOTAL ABDOMINAL HYSTERECT W/WO RMVL TUBE OVARY Hysterectomy, JAGRUTI OBSTETRIC RELATED HISTORY: OB History T0 L0 SAB0 IAB0 Ectopic0 Multiple0 Live Births0 menopause early 50's hysterectomy- fibroids later had B/L oophorectomy- she said it was for pain took HRT for the last 35 years; recently ~ 6-12 months ago her PCP recommended she stop. FAMILY HISTORY: FAMILY HISTORY Problem Relation Age of Onset Heart disease Mother Asthma Father SOCIAL HISTORY: Social History Tobacco Use Smoking status: Never Smokeless tobacco: Never Vaping Use Vaping Use: Never used Substance Use Topics Alcohol use: Yes Comment: occasionally Drug use: No CURRENT MEDICATIONS: nystatin-triamcinolone (MYCOLOG) ointment Apply sparingly to red areas both groins twice daily for irritation/infection. gabapentin (NEURONTIN) 100 mg capsule Take 1 capsule by mouth daily at bedtime for 180 days. estradiol (ESTRACE) 1 mg tablet Take 1 tablet by mouth once daily. Begin with half a pill, if symptoms dont get better take 1 pill nortriptyline (PAMELOR) 50 mg capsule TAKE ONE CAPSULE BY MOUTH EVERY DAY AT BEDTIME pravastatin (PRAVACHOL) 40 mg tablet Take 1 tablet by mouth daily at bedtime. losartan (COZAAR) 25 mg tablet Take 1 tablet by mouth once daily. potassium chloride (K-TAB) 10 mEq tablet Take 1 tablet by mouth daily with breakfast. On days she takes lasix furosemide (LASIX) 20 mg tablet take 1 tablet by mouth every other day amLODIPine (NORVASC) 2.5 mg tablet Take 1 tablet by mouth once daily. JUBLIA 10 % gunjan >Zippered Compression Knee High 30-40 mm custom CUSTOM MEASURE FOR KNEE HIGH [place] COMPRESSION STOCKINGS, 30-40 MM, WITH ZIPPERS PLEASE. IF UNABLE, PLEASE REFER TO CHUNG AT [facility]. DX: EDEMA multivitamin tablet Take 1 tablet by mouth once daily. Aspirin 81 mg Tab Take 81 mg by mouth once daily. cholecalciferol (VITAMIN D3) 50 mcg (2,000 unit) tablet Take by mouth once daily. CALCIUM 500 MG TAB Take 1500mg daily when she remebers naproxen sodium(ALEVE 220 MG TAB) Take one(1) tablet twice daily.as necessary ALLERGIES Allergen Reactions Vicodin [Hydrocodon* Intolerance REVIEW OF SYSTEMS: GENERAL: No weight loss, malaise or fevers HEENT: Negative for frequent or significant headaches, No changes in hearing or vision, no nose bleeds or other nasal problems RESPIRATORY: Negative for cough, hemoptysis, wheezing, COPD, dyspnea or shortness of breath CARDIOVASCULAR: Negative for chest pain, leg swelling, hypertension, CHF or palpitations GASTROINTESTINAL: No nausea, vomiting, or diarrhea GENITOURINARY: No history of dysuria, frequency or incontinence GYNECOLOGICAL: Negative for abnormal vaginal bleeding, abnormal vaginal discharge MUSCULOSKELETAL: Negative for joint pain or swelling, back pain or m (more content not included)... Normal [facility] US AXILLA ONLY RTon 09-25 [facility] US AXILLA ONLY RT * * *Final Report* * * DATE OF EXAM: Oct 19 2023 1:42PM BCW 0592 - [facility] US AXILLA ONLY RT / PROCEDURE REASON: multiple diagnoses * * * * Physician Interpretation * * * * #[id number] - [facility] US AXILLA ONLY RT ULTRASOUND OF RIGHT BREAST: 10/19/2023 HISTORY: Multiple Diagnoses; known right breast cancer. RESULT: Comparison is made to exams dated: 08/22/2023 mammogram, 07/27/2023 mammogram, and 07/01/2021 mammogram - [facility]. Real-time ultrasound of the right breast was performed. There are multiple benign various size right axillary lymph nodes. These nodes have a preserved fatty porter and normal cortices. IMPRESSION: BENIGN FINDING There is no sonographic evidence of malignancy. The multiple various size right axillary lymph nodes are benign. SUMMARY: Patient is following up with Dr. Kwon for her known right breast cancer. Ismael mercer/tera:10/19/2023 13:42:55 Slab Lifting Engineer(s): RT Macie(R)(M), [facility] Ultrasound BI-RADS: 2 Benign finding Multiple national specialty organizations have released breast cancer screening guidelines for women at average risk for developing breast cancer - guidelines that are based on both evidence and opinion, yet differ on when to start and how often to screen for breast cancer. With representation from Breast Imaging, Internal Medicine, Women's Health, Family Medicine, and Medical/Surgical Oncology, the [facility] has carefully reviewed the data and reached the following consensus: 1) All women should engage in shared decision-making with their providers to decide when to start and how often to screen; 2) All women should have the opportunity to start screening mammography at age 40; 3) For women ages 45-55, we recommend annual screening mammograms; 4) For women ages 55 and over, we support both the transition from an annual to a biennial interval if this aligns more with patient's values and preferences, or continuation with annual screening; 5) All women should discuss with their providers when to stop screening mammograms. Executive Assistant: Tera Transcribe Date/Time: Oct 19 2023 1:39P Dictated by : ISMAEL LIU MD This examination was interpreted and the report reviewed and electronically signed by: ISMAEL LIU MD on Oct 19 2023 1:42PM EST [id number] Normal [facility] US Axilla - righton 10-19-19 IMPRESSION: BENIGN FINDING There is no sonographic evidence of malignancy. The multiple various size right axillary lymph nodes are benign. SUMMARY: Patient is following up with Dr. Kwon for her known right breast cancer. Ismael mercer/tera:10/19/2023 13:42:55 Slab Lifting Engineer(s): RT Macie(R)(M), [facility] Ultrasound BI-RADS: 2 Benign finding Multiple national specialty organizations have released breast cancer screening guidelines for women at average risk for developing breast cancer - guidelines that are based on both evidence and opinion, yet differ on when to start and how often to screen for breast cancer. With representation from Breast Imaging, Internal Medicine, Women's Health, Family Medicine, and Medical/Surgical Oncology, the [facility] has carefully reviewed the data and reached the following consensus: 1) All women should engage in shared decision-making with their providers to decide when to start and how often to screen; 2) All women should have the opportunity to start screening mammography at age 40; 3) For women ages 45-55, we recommend annual screening mammograms; 4) For women ages 55 and over, we support both the transition from an annual to a biennial interval if this aligns more with patient's values and preferences, or continuation with annual screening; 5) All women should discuss with their providers when to stop screening mammograms. Executive Assistant: Tera Transcribe Date/Time: Oct 19 2023 1:39P Dictated by : ISMAEL LIU MD This examination was interpreted and the report reviewed and electronically signed by: ISMAEL LIU MD on Oct 19 2023 1:42PM [facility] DIVISION OF RADIOLOGY * * *Final Report* * * DATE OF EXAM: Oct 19 2023 1:42PM [facility] 0592 - [facility] US AXILLA ONLY RT / PROCEDURE REASON: multiple diagnoses * * * * Physician Interpretation * * * * #[id number] - [facility] US AXILLA ONLY RT ULTRASOUND OF RIGHT BREAST: 10/19/2023 HISTORY: Multiple Diagnoses; known right breast cancer. RESULT: Comparison is made to exams dated: 08/22/2023 mammogram, 07/27/2023 mammogram, and 07/01/2021 mammogram - [facility]. Real-time ultrasound of the right breast was performed. There are multiple benign various size right axillary lymph nodes. These nodes have a preserved fatty porter and normal cortices. DIVISION OF RADIOLOGY Provider, Gilda Santiago - 10/19/2023 * * *Final Report* * * DATE OF EXAM: Oct 19 2023 1:42PM [facility] 0592 - [place] US AXILLA ONLY RT / PROCEDURE REASON: multiple diagnoses * * * * Physician Interpretation * * * * #[id number] - [facility] US AXILLA ONLY RT ULTRASOUND OF RIGHT BREAST: 10/19/2023 HISTORY: Multiple Diagnoses; known right breast cancer. RESULT: Comparison is made to exams dated: 08/22/2023 mammogram, 07/27/2023 mammogram, and 07/01/2021 mammogram - [facility]. Real-time ultrasound of the right breast was performed. There are multiple benign various size right axillary lymph nodes. These nodes have a preserved fatty porter and normal cortices. IMPRESSION IMPRESSION: BENIGN FINDING There is no sonographic evidence of malignancy. The multiple various size right axillary lymph nodes are benign. SUMMARY: Patient is following up with Dr. Kwon for her known right breast cancer. Ismael mercer/tera:10/19/2023 13:42:55 Slab Lifting Engineer(s): RT Macie(R)(M), [facility] Ultrasound BI-RADS: 2 Benign finding Multiple national specialty organizations have released breast cancer screening guidelines for women at average risk for developing breast cancer - guidelines that are based on both evidence and opinion, yet differ on when to start and how often to screen for breast cancer. With representation from Breast Imaging, Internal Medicine, Women's Health, Family Medicine, and Medical/Surgical Oncology, the [facility] has carefully reviewed the data and reached the following consensus: 1) All women should engage in shared decision-making with their providers to decide when to start and how often to screen; 2) All women should have the opportunity to start screening mammography at age 40; 3) For women ages 45-55, we recommend annual screening mammograms; 4) For women ages 55 and over, we support both the transition from an annual to a biennial interval if this aligns more with patient's values and preferences, or continuation with annual screening; 5) All women should discuss with their providers when to stop screening mammograms. Executive Assistant: Tera Transcribe Date/Time: Oct 19 2023 1:39P Dictated by : ISMAEL LIU MD This examination was interpreted and the report reviewed and electronically signed by: ISMAEL LIU MD on Oct 19 2023 1:42PM EST [facility] Radiology Study observation (narrative) [facility] US Axilla - rightOrdered By: [facility] Provider on 10-19-2023 [facility] CNPNon 10-12-2023 CNPN Telephone (DrFirst) -------- ALBERTO RODRIGUEZ ([id number]) 1935 F Date Time Provider Department 10/12/23 NURIS ALEGRIA [employer] During your visit today, we recorded the following information about you: Nuris Alegria RN 10/12/2023 11:26 AM Addendum Attempt to reach Alberto regarding upcoming appt with Dr Kwon- memory is full unable to leave message. Pt does not have my chart access to send my chart message Nuris Alegria RN 10/12/2023 11:35 AM Signed Addended by: NURIS ALEGRIA on: 10/12/2023 11:35 AM Modules accepted: Orders Nuris Alegria RN 10/12/2023 2:58 PM Signed Reached out to Alberto regarding upcoming appt with Dr Kwon. Alberto lives by her self. She denies any breast issues or concern prior to her mammogram. She was called back for additional imaging and biopsy. Pathology results Right breast, anterior, calcifications, stereotactic-guided core biopsy, with tophat clip placement (A): - Atypical lobular hyperplasia (ALH). - Fibrocystic changes, including usual ductal hyperplasia (UDH), dense stromal fibrosis, cysts, and apocrine metaplasia, and pseudoangiomatous stromal hyperplasia (PASH). - Microcalcifications in non-neoplastic breast epithelium. - Please see Comment I. 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 - Microcalcifications in lobular neoplasia and non-neoplastic breast epithelium. Component ER status Positive (greater than 10%) ER % staining 99 Estrogen Receptor (Staining Intensity) Strong Estrogen Receptor Internal Control Present and Stained as Expected Estrogen Receptor External Control Present and Stained as Expected WY status Positive (greater than or equal to 1%) WY % staining 99 Progesterone Receptor (Staining Intensity) Strong Progesterone Receptor Internal Control Present and Stained as Expected Progesterone Receptor External Control Present and Stained as Expected HER2 IHC Status Equivocal for HER2 Overexpression HER2 IHC Score 2+ Tumor Type Primary Invasive Breast Carcinoma Breast Tumor Grade Not Graded Comment: Microinvasive carcinoma [facility] Referring Laboratory Case Number Block ID [id number] Fish is pending Family HX Sister Breast cancer Sister Breast cancer PGM Stomach cancer Discussed med/onc and rad/onc, MRI. Scheduled MRI 1st available for October 20 Reviewed and updated allergies, medications, surgical, medical, family, and OB history. Contact information provided, encouraged to call with any questions or concerns. 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 No IV access, insert saline lock prior to the beginning of sedation, infusion, injection of imaging exam. Discontinue saline lock post exam. If Pt has a central line or IVAD, may access for administration according to line specific nursing protocol. Once exam is complete flush line and de-access according to line specific nursing protocol in the MR contrast administration guidelines linkDisp: 1 EachRfl: 0 MRI BREAST 3D POST PROCESSING [3255088] Order #: [id number] FUTURE CONSULT TO HEMATOLOGY/ONCOLOGY [19990327] Order #: [id number]: 1 FUTURE RAD/ONC CONSULT [9037] Order #: [id number]: 1 FUTURE Prescriptions as of 10/12/2023 - iv contrast (will be provided with radiology test) MRI Breast EMELIA Inject, intravenously, once for 1 dose. No IV access, insert saline lock prior to the beginning of sedation, infusion, injection of imaging exam. Discontinue saline lock post exam. If Pt has a central line or IVAD, may access for administration according to line specific nursing protocol. Once exam is complete flush line and de-access according to line specific nursing protocol in the MR contrast administration guidelines link - nystatin-triamcinolone (MYCOLOG) ointment Apply sparingly to red areas both groins twice daily for irritation/infection. - gabapentin (NEURONTIN) 100 mg capsule Take 1 capsule by mouth daily at bedtime for 180 days. - estradiol (ESTRACE) 1 mg tablet (more content not included)... Normal [facility] Telephone (RADMN) -------- ALBERTO RODRIGUEZ ([id number]) 1935 F Date Time Provider Department 10/12/23 GEORGINA CROOKS During your visit today, we recorded the following information about you: Allergies As of Date: 10/12/2023 Noted Allergy Reaction VICODIN (HYDROCODONE-ACETAMINOPH E*04/27/2009 5 - Intolerance Date Reviewed: 10/04/2023 Reviewed by: Radha Baldwin, RT(R) - Fully Assessed Reason for Visit: Results [95] Appointment [186] Prescriptions as of 10/12/2023 - nystatin-triamcinolone (MYCOLOG) ointment Apply sparingly to red areas both groins twice daily for irritation/infection. - gabapentin (NEURONTIN) 100 mg capsule Take 1 capsule by mouth daily at bedtime for 180 days. - estradiol (ESTRACE) 1 mg tablet Take 1 tablet by mouth once daily. Begin with half a pill, if symptoms dont get better take 1 pill - nortriptyline (PAMELOR) 50 mg capsule TAKE ONE CAPSULE BY MOUTH EVERY DAY AT BEDTIME - pravastatin (PRAVACHOL) 40 mg tablet Take 1 tablet by mouth daily at bedtime. - losartan (COZAAR) 25 mg tablet Take 1 tablet by mouth once daily. - potassium chloride (K-TAB) 10 mEq tablet Take 1 tablet by mouth daily with breakfast. On days she takes lasix - furosemide (LASIX) 20 mg tablet take 1 tablet by mouth every other day - amLODIPine (NORVASC) 2.5 mg tablet Take 1 tablet by mouth once daily. - JUBLIA 10 % gunjan - >Zippered Compression Knee High 30-40 mm custom CUSTOM MEASURE FOR KNEE HIGH HO COMPRESSION STOCKINGS, 30-40 MM, WITH ZIPPERS PLEASE. IF UNABLE, PLEASE REFER TO CHUNG AT [facility]. DX: EDEMA - multivitamin tablet Take 1 tablet by mouth once daily. - Aspirin 81 mg Tab Take 81 mg by mouth once daily. - cholecalciferol (VITAMIN D3) 50 mcg (2,000 unit) tablet Take by mouth once daily. 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] 05/02/2005 ESOPHAGEAL REFLUX [K21.9] 05/02/2005 PAIN ABDOMEN( Right Upper Quadrant) [R10.11] 07/16/2007 GASTRITIS ANTRAL( W/O Hemorrhage) [K29.60] 07/27/2007 ACUTE GASTRITIS W/O HEMORRHAGE [K29.00] 07/27/2007 CHOLECYSTITIS SEE ALSO GALLBLADDER CHRONIC [K*08/13/2007 Dysuria [R30.0] 08/16/2007 06/27/2014 MULTINODULAR GOITER (NONTOXIC) [E04.2] 10/30/2008 Hot flash, menopausal [N95.1] 06/21/2011 06/27/2014 PHN (postherpetic neuralgia) [B02.29] 02/06/2012 Postherpetic neuralgia [B02.29] 06/14/2012 06/27/2014 Pinched nerve in neck [G58.9] 01/31/2018 Hot flashes [R23.2] 09/21/2018 Essential hypertension [I10] 04/14/2022 Pain of left hip joint [M25.552] 07/19/2022 Encounter Status:Closed by GEORGINA CROOKS on 10/12/23 Normal [facility] BREAST MARKERSon 10-04-2023 AP BIOMARKER DISCLAIMER Normal [facility] Comment on above: Order Comment: Speci men Type: BLOOD SPECIMEN Ordering Facility: [facility] Address: [address] [place] [address] Result Comment: Estrella maldonado Developed Test (LDT) Disclaimer: Performance characteristics of immunohistochemical, immunofluorescent and chromogenic in-situ hybridization tests have been determined by the performing laboratory within [facility]???s Dulce Inman [facility] Pathology and Laboratory Medicine Department ([facility], [facility], [facility], [facility], [facility], [facility], or [facility]) in a manner consistent with CLIA requirements. One or more of these tests have not been cleared or approved by the FDA. [facility] is regulated under CLIA as qualified to perform high-complexity testing. These tests are used for clinical purposes. They should not be regarded as investigational or for research. Positive and negative controls stain appropriately. Performed By: #### 5 0190-8, 2276-4 #### [facility] CLIA [id number] [address] [place] [address] [place] AP BLOCK ID [id number] Normal [facility] Comment on above: Order Comment: Speci men Type: BLOOD SPECIMEN Ordering Facility: [facility] Address: [address] [place] [address] Performed By: #### 5 0190-8, 2276-4 #### [facility] CLIA [id number] [address] [place] [address] [place] ASCP/CAP GUIDELINES FOR FIXATION Yes Normal [facility] Comment on above: Order Comment: Speci men Type: BLOOD SPECIMEN Ordering Facility: [facility] Address: [address] [place] [address] Performed By: #### 5 0190-8, 6-4 #### [facility] CLIA [id number] [address] [place] [address] [place] BIOMARKER INTERPRETATION COMMENT AND REFERENCE RANGE Normal [facility] Comment on above: Order Comment: Raleigh carbajal Type: BLOOD SPECIMEN Ordering Facility: [facility] Address: [address] [place] [address] Result Comment: Refe rence Range for Hormone Receptors: Staining for [place] of greater than or equal to 1% of the tumor cells is considered positive. Staining for ER of 1-10% of the tumor cells is considered low positive. Staining for ER of greater than 10% of the tumor cells is considered positive. Staining for ER or [place] of less than 1% is considered negative. Reference Ranges for HER2 Immunohistochemistry: Positive (3+): Complete, intense circumferential membrane staining in greater than 10% of tumor cells. Equivocal (2+): Weak to moderate complete membrane staining observed in greater than 10% of tumor cells. Negative (1+): Incomplete, faint membrane staining in greater than 10% of tumor cells. Negative (0): No staining or incomplete faint membrane staining in less than or equal to 10% of tumor cells. Interpretation Comments: Consideration of follow-up testing for HER2 (ERBB2) status by fluorescence in situ hybridization (FISH) for all equivocal (2+) results is recommended and will be ordered as a reflex test if FISH was not a testing methodology already employed. Note for ER low results. For malignancy with a low level (1%-10%) of ER expression by immunohistochemistry, there are limited data on the overall benefit of endocrine therapies for a patient with low level (1%-10%) ER expression, but they currently suggest possible benefits, so patients are considered eligible for endocrine treatment. Some data indicate that invasive cancers with these results are heterogeneous in behavior and biology and often have gene expression profiles more similar to ER-negative cancers. Performed By: #### 5 0190-8, 6-4 #### [facility] CLIA [id number] [address] [place] [address] [place] [address] [place] BIOMARKER METHOD Normal Kera pickard [facility] Comment on above: Order Comment: Speci men Type: BLOOD SPECIMEN Ordering Facility: [facility] Address: [address] [place] [address] Result Comment: Estr ogen Receptor: Food and Drug Administration (FDA) cleared: [employer], [place], [place] Primary Antibody: SP1 Progesterone Receptor: FDA cleared: [employer], [place], [place] Primary Antibody: IE2 HER2 (ERBB2) by IHC: FDA cleared: [employer], [place], [place] Primary Antibody:4B5 The hormone receptor tests were performed and reported in accordance with the guidelines approved by the [place] Society of Clinical Oncologists and the College of Haitian Pathologists. Yeny TIM, et al. Estrogen and Progesterone Receptor Testing in Breast Cancer: [place] Society of Clinical Oncologists and the College of [place] Pathologists Guideline Update. Arch Pathol Lab Med. 2019;144(5):545-563. PMID: 67658826. The hormone receptor assays have been internally validated on decalcified tissues (for [facility] only). Estrogen and progesterone receptor results are valid if tissue was processed according to ASCO/CAP guidelines. Antibody and Detection System: Elbe's Pathway anti-HER2 rabbit monoclonal antibody (clone [id number]), Elbe Confirm anti-estrogen receptor rabbit monoclonal antibody (clone SP1) and Elbe anti-progesterone receptor rabbit monoclonal antibody (clone IE2) detected with the Elbe UltraView Univeral DAB Detection Kit (indirect biotin-free detection), [employer], [place], [place]. Control Slides: Cell line controls with high, equivocal, low, and negative HER2 protein expression, along with known positive control tissue and the patient's tissue, are evaluated for HER2 expression. The HER2 immunohistochemistry assay was developed, validated, scored, and reported in accordance with the guidelines approved by the [place] Society of Clinical Oncologists and the College of Haitian Pathologists. Faith ABRAHAM et al. Arch Pathol Lab Med. 2018;1379(9) The HER2 assay has not been validated on decalcified tissues. Given the possibility of false negative results on decalcified specimens, results should be interpreted with caution. Performed By: #### 5 0190-8, 2276-4 #### [facility] CLIA [id number] [address] [place] [place] [id number] [place] BREAST TUMOR GRADE Not Graded Normal [facility] Comment on above: Order Comment: Speci men Type: BLOOD SPECIMEN Ordering Facility: [facility] Address: [address] [place], [place] [address] Result Comment: Micr oinvasive carcinoma Performed By: #### 5 0190-8, 2275-4 #### [facility] CLIA [id number] [address] [place] [address] [place] [facility] CASE NUMBER INVASIVE [id number] Normal [facility] Comment on above: Order Comment: Speci men Type: BLOOD SPECIMEN Ordering Facility: [facility] Address: [address] [place] [address] Performed By: #### 5 0190-8, 2275- #### [facility] CLIA [id number] [address] [place] [address] [place] COLD ISCHEMIA TIME <1 Hour Normal [facility] Comment on above: Order Comment: Speci men Type: BLOOD SPECIMEN Ordering Facility: [facility] Address: [address] [place], [place] [address] Performed By: #### 5 0190-8, 2275- #### [facility] CLIA [id number] [address] [place], [place] [address] [place] ESTROGEN RECEPTOR (% TUMOR STAINING) 99 Normal [facility] Comment on above: Order Comment: Speci men Type: BLOOD SPECIMEN Ordering Facility: [facility] Address: [address] [place], [place] [address] Performed By: #### 5 0190-8, 2275-4 #### [facility] CLIA [id number] [address] [place], [place] [address] [place] ESTROGEN RECEPTOR (STAINING INTENSITY) Strong Normal [facility] Comment on above: Order Comment: Speci men Type: BLOOD SPECIMEN Ordering Facility: [facility] Address: [address] [place], [place] [address] Performed By: #### 5 0190-8, 2275-4 #### [facility] CLIA [id number] [address] [place] [address] OF [place]ES ESTROGEN RECEPTOR EXTERNAL CONTROL Present and Stained as Expected Normal [facility] Comment on above: Order Comment: Speci men Type: BLOOD SPECIMEN Ordering Facility: [facility] Address: [address] [place] [address] Performed By: #### 5 0190-8, 2275-4 #### [facility] CLIA [id number] [address] [place] [address] OF MILES ESTROGEN RECEPTOR INTERNAL CONTROL Present and Stained as Expected Normal [facility] Comment on above: Order Comment: Speci men Type: BLOOD SPECIMEN Ordering Facility: [facility] Address: [address] [place] [address] Performed By: #### 5 0190-8, 2275-4 #### [facility] CLIA [id number] [address] [place] [address] [place] ESTROGEN RECEPTOR STATUS (INVASIVE) Positive Normal [facility] Comment on above: Order Comment: Speci men Type: BLOOD SPECIMEN Ordering Facility: [facility] Address: [address] [place] [address] Performed By: #### 5 0190-8, 2275-4 #### [facility] CLIA [id number] [address] [place] [address] [place] FINAL PERFORMING LAB Normal [facility] Comment on above: Order Comment: Speci men Type: BLOOD SPECIMEN Ordering Facility: [facility] Address: [address] [place] [address] Result Comment: Diag nostic interpretation performed at [facility], [address] [place] [address] CLIA: [id number] Cellars Supervisor: Tavo Roberts MD Electronically signed out by: Rolando Walters MD Performed By: #### 5 0190-8, 2275- #### [facility] CLIA [id number] [address] [place] [address] [place] FIXATIVE Formalin, 10% Neutra l Buffered Normal [facility] Comment on above: Order Comment: Speci men Type: BLOOD SPECIMEN Ordering Facility: [facility] Address: [address] [place], [place] [address] Performed By: #### 5 0190-8, 2275- #### [facility] CLIA [id number] [address] [place] [address] [place] HER2 SCORE 2+ Normal [facility] Comment on above: Order Comment: Speci men Type: BLOOD SPECIMEN Ordering Facility: [facility] Address: [address] [place] [address] Performed By: #### 5 0190-8, 2275- #### [facility] CLIA [id number] [address] [place] [address] [place] HER2 STATUS (INVASIVE) Equivocal for HER 2 Overexpression Normal [facility] Comment on above: Order Comment: Speci men Type: BLOOD SPECIMEN Ordering Facility: [facility] Address: [address] [place] [address] Performed By: #### 5 0190-8, 2275-06 #### [facility] CLIA [id number] [address] [place] [address] [place] PROGESTERONE RECEPTOR (% TUMOR STAINING) 99 Normal [facility] Comment on above: Order Comment: Speci men Type: BLOOD SPECIMEN Ordering Facility: [facility] Address: [address] [place], [place] [address] Performed By: #### 5 0190-8, 2275- #### [facility] CLIA [id number] [address] [place] [address] [place] PROGESTERONE RECEPTOR (STAINING INTENSITY) Strong Normal [facility] Comment on above: Order Comment: Speci men Type: BLOOD SPECIMEN Ordering Facility: [facility] Address: [address] [place] [id number] Performed By: #### 5 0190-8, 2275- #### [facility] CLIA [id number] [address] [place], [place] [address] [place] PROGESTERONE RECEPTOR EXTERNAL CONTROL Present and Stained as Expected Normal [facility] Comment on above: Order Comment: Speci men Type: BLOOD SPECIMEN Ordering Facility: [facility] Address: [address] [place] [address] Performed By: #### 5 0190-8, 2275-06 #### [facility] CLIA [id number] [address] [place] [address] [place] PROGESTERONE RECEPTOR INTERNAL CONTROL Present and Stained as Expected Normal [facility] Comment on above: Order Comment: Speci men Type: BLOOD SPECIMEN Ordering Facility: [facility] Address: [address] [place] [address] Performed By: #### 5 0190-8, 2275-06 #### [facility] CLIA [id number] [address] [place] [address] [place] PROGESTERONE RECEPTOR STATUS (INVASIVE) Positive Normal [facility] Comment on above: Order Comment: Speci men Type: BLOOD SPECIMEN Ordering Facility: [facility] Address: [address] [place], [place] [address] Performed By: #### 5 0190-8, 2275-06 #### [facility] CLIA [id number] [address] [place], [place] [address] [place] REFERRING LABORATORY CASE NUMBER Normal [facility] Comment on above: Order Comment: Speci men Type: BLOOD SPECIMEN Ordering Facility: [facility] Address: [address] [place], [place] [address] Performed By: #### 5 0190-8, 2275-06 #### [facility] CLIA [id number] [address] [place] [address] [place] TOTAL FIXATION TIME >6 and <72 Hours Normal [facility] Comment on above: Order Comment: Speci men Type: BLOOD SPECIMEN Ordering Facility: [facility] Address: [address] [place] [address] Performed By: #### 5 0190-8, 2276-4 #### [facility] CLIA [id number] [address] [place] [address] [place] TUMOR 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 Normal [facility] Comment on above: Order Comment: Speci men Type: BLOOD SPECIMEN Ordering Facility: [facility] Address: [address] [place] [address] Performed By: #### 5 0190-8, 6-4 #### [facility] CLIA [id number] [address] [place] [address] [place] WAS SPECIMEN DECALCIFIED No Normal [facility] Comment on above: Order Comment: Speci men Type: BLOOD SPECIMEN Ordering Facility: [facility] Address: [address] [place] [address] Performed By: #### 5 0190-8, 6-4 #### [facility] CLIA [id number] [address] [place] [address] [place] FISH FOR HER-2on 10-04-2023 FISH FOR HER-2 FISH for HER2 Normal [facility] Comment on above: Order Comment: Speci men Type: BLOOD SPECIMEN Ordering Facility: [facility] Address: [address] [place] [address] Result Comment: Laboratory Accession Number: [id number] Case: [id number] Block/Part ID: B1 Sample Type: FFPET Sample Description: RIGHT BREAST, CORE BIOPSY Received Date: 10/09/2023 HER2 (ERBB2) Status by FISH: Non amplified INTERPRETATION: NEGATIVE for HER2 (ERBB2) GENE AMPLIFICATION Number of cells counted: 40 Number of observers: 2 Average HER2 (ERBB2) signal copy number per cell: 2.0 Average CEP17 signal copy number per cell: 1.8 HER2 (ERBB2)/CEP17 ratio: 1.1 Fixative: 10% neutral buffered formalin Fixation Time: >6 and <72 hours Cold Ischemic time: <1 hour Meets ASCO/CAP guidelines for fixative and fixation times: yes These results should be interpreted with caution if the above pre- analytical values do not meet the ASCO/CAP guidelines for tissue fixation and handling. Tissue sections for HER2 (ERBB2) analysis should not be used if cut > 6 weeks prior to testing. Reference ranges (2018 ASCO/CAP guidelines): HER2 (ERBB2) non amplified: HER2(ERBB2)/ CEP 17 ratio < 2.0 with <4.0 HER2 (ERBB2) signals/cell (Group 5) HER2 (ERBB2) amplified: HER2(ERBB2)/ CEP 17 ratio is >/= 2.0 with >/= 4.0 HER2 (ERBB2) signals/cell (Group 1) Nomenclature: nuc yousif(D17Z1,ERBB2)x1~2[38/40] METHODOLOGY: HER2 (ERBB2) gene amplification was manually evaluated on paraffin- embedded tissue by interphase fluorescence in situ hybridization (FISH), using a dual color probe set for the HER2 (ERBB2) locus at 17q12 and the centromeric region of chromosome 17 (PathVysion; [employer].Me, [employer]reen[employer]Me [place], [place]). The [facility] Cytogenomics [facility] of the [facility] has validated modifications of the PathVysion kit used for the testing, including the use of Target Retrieval Solution and Proteinase K (Dako (Agilent); [place]) for cell conditioning, and modified probe/target denaturation and hybridization conditions for the assay. Internal and external (amplified and non-amplified) controls are evaluated. The in situ hybridization analysis was performed and correlated with preselected areas of invasive carcinoma deemed adequate for analysis by a pathologist. The HER2 (ERBB2) assay was developed, validated, and reported in accordance with guidelines published by the [place] Society of Clinical Oncology (ASCO) and the College of [place] Pathologists (CAP) (Faith ABRAHAM, et al. J Clin Oncol. 2018. PMID: [id number]); and, Recommendations for Human Epidermal Growth Factor Receptor 2 Testing in Breast Cancer: [place] Society of Clinical Oncology/College of [place] Pathologists Clinical Practice Guideline Focused Update (2018). The assay has been validated on tissues decalcified in EDTA only. As with all decalcified specimens, the results should be interpreted with caution given the likelihood of false negativity on these specimens. Negative results should, therefore, be interpreted with caution for specimens not meeting the ASCO/CAP guidelines. DISCLAIMER: This test was developed and its performance characteristics determined by the [facility]'s [facility] [place] ([facility]). It has not been cleared or approved by the FDA. -[facility] is regulated under CLIA as qualified to perform high- complexity testing. This test is used for clinical purposes. It should not be regarded as investigational or for research. Interpretation performed at [facility], [address] [place] [address]. CLIA Number: [id number] As reviewed by Dean Doe Performed By: #### 5 0190-8, 2276-4 #### [facility] CLIA [id number] [address] [place], [place] [address] [place] [address] [place] VALERI STEREO BX ADDL LES RTon 10-04-2023 VALERI STEREO BX ADDL LES RT * * *Final Report* * * * * * SEE BOTTOM OF REPORT FOR ADDENDED TEXT * * * DATE OF EXAM: Oct 04 2023 3:02PM BCW 0645 - VALERI STEREO BX ADDL LES RT / PROCEDURE REASON: Abnormal mammogram * * * * Physician Interpretation * * * * FINAL REPORT #[id number] - VALERI STEREO BX ADDL LES RT DIGITAL TOMOGRAPHIC MAMMOGRAPHY GUIDED STEREOTACTIC GUIDED BIOPSY RIGHT BREAST WITH MARKING DEVICE INSERTED AND POST MAMMOGRAPHIC IMAGING AND RADIOGRAPHIC SPECIMEN IMAGIN10/04/2023 HISTORY: /The patient presents for right stereotactic vacuum assisted needle biopsy as recommended from recent imaging study dated (08/18/23). Pre and post fire hard copy mammographic images were obtained with specimen and buckle clip placement. PATIENT CONSENT: A time out was performed immediately prior to procedure start with the radiology team, correctly identifying the patient name, date of , procedure, anatomy, patient position, relevant diagnostic and radiology test results, safety precautions, and procedure-specific equipment needs. The procedure was explained to the patient including the risks and. Medications and allergies were also reviewed. The radiologist and technologist were present throughout the entire procedure. Dr. Narvaez performed the entire procedure without an psychiatric nursing assistant. Time out: 1410 Procedure start: 1410 Procedure end: 1418 . Correlation is made to exam dated: 08/22/2023 mammogram - [facility]. A stereotactic guided biopsy was performed for the concerning area of calcifications located in the right breast upper outer aspect posterior depth. This was described on the previous mammography report. The skin was prepped in the usual manner. Local anesthetic was administered to the access site. The abnormality was approached from the caudocranial aspect using a prone digital tomographic mammography unit. A 12 gauge biopsy needle was placed adjacent to the abnormality under computer guidance and confirmatory stereotactic mammography images were obtained to document needle placement. Once the needle was documented to be in the correct location, twelve specimens were obtained using a 12g Purplleiva vacuum assisted biopsy needle. The patient received additional local anesthetic during the procedure. A buckle clip was inserted into the biopsy cavity. A skin closure strip and a sterile dressing were applied to the access site. Post procedure mammographic imaging demonstrates the location device 0.3cm inferior from the geometric center of the targeted area. The specimens were sent to the laboratory for pathological analysis. IMPRESSION: STEREOTACTIC GUIDED BIOPSY Stereotactic guided biopsy of the area of calcifications in the right breast upper outer aspect posterior depth with placement of a clip was successful with no apparent post procedure complications. The imaged specimens includes the calcifications. Pathology results are concordant with biopsy findings. A surgical consultation is recommended. The procedure was reviewed by a staff physician. SUMMARY: FINAL DIAGNOSIS 1. Right breast, anterior, calcifications, stereotactic-guided core biopsy, with tophat clip placement (A): - Atypical lobular hyperplasia (ALH). - Fibrocystic changes, including usual ductal hyperplasia (UDH), dense stromal fibrosis, cysts, and apocrine metaplasia, and pseudoangiomatous stromal hyperplasia (PASH). - Microcalcifications in non-neoplastic breast epithelium. - Please see Comment I. 2. 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 - Microcalcifications in lobular neoplasia and non-neoplastic breast epithelium. Electronically signed by Rolando Walters MD The patient will be notified of the concordant pathology results by the Breast imaging navigator. Surgical consultation is recommended. Breast Imaging Nurse Navigator will contact the patient with her appointment. jayla Matthews M.D., D.O./tera:10/10/2023 17:36:49 Slab Lifting Engineer(s): Radha Baldwin RT(R)(M), Formerly Yancey [facility] Multiple national specialty organizations have released breast cancer screening guidelines for women at average risk for developing breast cancer - guidelines that are based on both evidence and opinion, yet differ on when to start and how often to screen for breast cancer. With representation from Breast Imaging, Internal Medicine, Women's Health, Family Medicine, and Medical/Surgical Oncology, the [facility] has carefully reviewed the data and reached the following consensus: 1) All women should engage in shared decision-making with their providers to decide when to start and how often to screen; 2) All women should have the opportunity to start (more content not included)... Normal [facility] STEREO BX ADDL LES RT-NR on 10-04-2023 Addendum by Provider , [facility] [place] on 10/04/2023 3:25 PM EDT * * *Final Report* * * * * * SEE BOTTOM OF REPORT FOR ADDENDED TEXT * * * DATE OF EXAM: Oct 04 2023 3:02PM [facility] 0645 - [facility] STEREO BX ADDL LES RT / PROCEDURE REASON: Abnormal mammogram * * * * Physician Interpretation * * * * #[id number] - [facility] STEREO BX ADDL LES RT DIGITAL TOMOGRAPHIC MAMMOGRAPHY GUIDED STEREOTACTIC GUIDED BIOPSY RIGHT BREAST WITH MARKING DEVICE INSERTED AND POST MAMMOGRAPHIC IMAGING AND RADIOGRAPHIC SPECIMEN IMAGIN10/04/2023 HISTORY: /The patient presents for right stereotactic vacuum assisted needle biopsy as recommended from recent imaging study dated (08/18/23). Pre and post fire hard copy mammographic images were obtained with specimen and buckle clip placement. PATIENT CONSENT: A time out was performed immediately prior to procedure start with the radiology team, correctly identifying the patient name, date of , procedure, anatomy, patient position, relevant diagnostic and radiology test results, safety precautions, and procedure-specific equipment needs. The procedure was explained to the patient including the risks and. Medications and allergies were also reviewed. The radiologist and technologist were present throughout the entire procedure. Dr. Narvaez performed the entire procedure without an psychiatric nursing assistant. Time out: 1409 Procedure start: 1409 Procedure end: 1417 . Correlation is made to exam dated: 08/22/2023 mammogram - [facility]. A stereotactic guided biopsy was performed for the concerning area of calcifications located in the right breast upper outer aspect posterior depth. This was described on the previous mammography report. The skin was prepped in the usual manner. Local anesthetic was administered to the access site. The abnormality was approached from the caudocranial aspect using a prone digital tomographic mammography unit. A 12 gauge biopsy needle was placed adjacent to the abnormality under computer guidance and confirmatory stereotactic mammography images were obtained to document needle placement. Once the needle was documented to be in the correct location, twelve specimens were obtained using a 12g Purplleiva vacuum assisted biopsy needle. The patient received additional local anesthetic during the procedure. A buckle clip was inserted into the biopsy cavity. A skin closure strip and a sterile dressing were applied to the access site. Post procedure mammographic imaging demonstrates the location device 0.3cm inferior from the geometric center of the targeted area. The specimens were sent to the laboratory for pathological analysis. IMPRESSION: STEREOTACTIC GUIDED BIOPSY Stereotactic guided biopsy of the area of calcifications in the right breast upper outer aspect posterior depth with placement of a clip was successful with no apparent post procedure complications. The imaged specimens includes the calcifications. Waiting for pathology results. A final report will be issued when these become available. The procedure was reviewed by a staff physician. jayla Matthews M.D., D.O./tera:10/04/2023 15:25:04 Slab Lifting Engineer(s): RT Macie(Lianna)(M), [facility] Multiple national specialty organizations have released breast cancer screening guidelines for women at average risk for developing breast cancer - guidelines that are based on both evidence and opinion, yet differ on when to start and how often to screen for breast cancer. With representation from Breast Imaging, Internal Medicine, Women's Health, Family Medicine, and Medical/Surgical Oncology, the [facility] has carefully reviewed the data and reached the following consensus: 1) All women should engage in shared decision-making with their providers to decide when to start and how often to screen; 2) All women should have the opportunity to start screening mammography at age 40; 3) For women ages 45-55, we recommend annual screening mammograms; 4) For women ages 55 and over, we support both the transition from an annual to a biennial interval if this aligns more with patient's values and preferences, or continuation with annual screening; 5) All women should discuss with their providers when to stop screening mammograms. Executive Assistant: Tera Transcribe Date/Time: Oct 04 2023 1:22P Dictated by : PATSY BROWN DO This examination was interpreted and the report reviewed and electronically signed by: LEVI NARVAEZ MD on Oct 04 2023 3:24PM EST This document has been addended by: LEVI NARVAEZ MD on Oct 04 2023 3:25PM EST [facility] STEREO BX BREAST RTon [facility] STEREO BX BREAST RT * * *Final Report* * * * * * SEE BOTTOM OF REPORT FOR ADDENDED TEXT * * * DATE OF EXAM: Oct 04 2023 3:02PM [facility] 0631 - [facility] STEREO BX BREAST RT / PROCEDURE REASON: Abnormal mammogram * * * * Physician Interpretation * * * * FINAL REPORT #[id number] - [facility] STEREO BX BREAST RT DIGITAL TOMOGRAPHIC MAMMOGRAPHY GUIDED STEREOTACTIC GUIDED BIOPSY RIGHT BREAST WITH MARKING DEVICE INSERTED AND POST MAMMOGRAPHIC IMAGING AND RADIOGRAPHIC SPECIMEN IMAGIN10/04/2023 HISTORY: /The patient presents for right stereotactic vacuum assisted needle biopsy as recommended from recent imaging study dated (08/22/23). Pre and post fire hard copy mammographic images were obtained with specimen and tophat clip placement. PATIENT CONSENT: A time out was performed immediately prior to procedure start with the radiology team, correctly identifying the patient name, date of , procedure, anatomy, patient position, relevant diagnostic and radiology test results, safety precautions, and procedure-specific equipment needs. The procedure was explained to the patient including the risks and. Medications and allergies were also reviewed. The radiologist, psychiatric nursing assistant radiologist and technologist were present throughout the entire procedure. Time out: 1345 Procedure start: 1347 Procedure end: 1350 Dr. Narvaez was present during all critical and giang portions of the procedure and scrubbed in and immediately available during the entire procedure. The psychiatric nursing assistant radiologist was Dr. Brown. The psychiatric nursing assistant radiologist performed the procedure. Correlation is made to exams dated: 08/22/2023 mammogram, 07/27/2023 mammogram, 07/01/2021 mammogram, and 06/03/2020 mammogram - [facility]. A stereotactic guided biopsy was performed for the concerning area of calcifications located in the right breast central to the nipple anterior depth. This was described on the previous mammography report. The skin was prepped in the usual manner. Local anesthetic was administered to the access site. The abnormality was approached from the lateral aspect using a prone digital tomographic mammography unit. A 12 gauge biopsy needle was placed adjacent to the abnormality under computer guidance and confirmatory stereotactic mammography images were obtained to document needle placement. Once the needle was documented to be in the correct location, six specimens were obtained using a 12g Lumiyos Eviva vacuum assisted biopsy needle. The patient received additional local anesthetic during the procedure. A top hat clip was inserted into the biopsy cavity. A skin closure strip and a sterile dressing were applied to the access site. Post procedure mammographic imaging demonstrates the location device at the targeted area. The specimens were sent to the laboratory for pathological analysis. IMPRESSION: STEREOTACTIC GUIDED BIOPSY HIGH RISK BENIGN Stereotactic guided biopsy of the area of calcifications in the right breast central to the nipple anterior depth with placement of a clip was successful with no apparent post procedure complications. The imaged specimens includes the calcifications. Pathology indicates high risk benign atypical lobular hyperplasia (ALH). Pathology results are concordant with biopsy findings. A surgical consultation is recommended. The procedure was reviewed by a staff physician. SUMMARY: FINAL DIAGNOSIS 1. Right breast, anterior, calcifications, stereotactic-guided core biopsy, with tophat clip placement (A): - Atypical lobular hyperplasia (ALH). - Fibrocystic changes, including usual ductal hyperplasia (UDH), dense stromal fibrosis, cysts, and apocrine metaplasia, and pseudoangiomatous stromal hyperplasia (PASH). - Microcalcifications in non-neoplastic breast epithelium. - Please see Comment I. 2. 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 - Microcalcifications in lobular neoplasia and non-neoplastic breast epithelium. Electronically signed by Rolando Walters MD The patient will be notified of the concordant pathology results by the Breast imaging navigator. Surgical consultation is recommended. Breast Imaging Nurse Navigator will contact the patient with her appointment. jayla Matthews M.D., D.O./tera:10/10/2023 17:33:16 Slab Lifting Engineer(s): RT Macie(R)(Eddie), [facility] Multiple national specialty organizations have released breast cancer screening guidelines for women at average risk for developing breast cancer - guidelines that are based on both evidence and opinion, yet differ on when to start and how often to screen for breast cancer. With representation from Breast Imaging, Internal Medicine, Women's Health, [facility] (more content not included)... Normal [facility] stereo Guidance for biops y of Breast - righton 10-04-2023 Addendum by Provider , [facility] [place] on 10/04/2023 3:25 PM EDT * * *Final Report* * * * * * SEE BOTTOM OF REPORT FOR ADDENDED TEXT * * * DATE OF EXAM: Oct 04 2023 3:02PM [facility] 0631 - [facility] STEREO BX BREAST RT / PROCEDURE REASON: Abnormal mammogram * * * * Physician Interpretation * * * * #[id number] - [facility] STEREO BX BREAST RT DIGITAL TOMOGRAPHIC MAMMOGRAPHY GUIDED STEREOTACTIC GUIDED BIOPSY RIGHT BREAST WITH MARKING DEVICE INSERTED AND POST MAMMOGRAPHIC IMAGING AND RADIOGRAPHIC SPECIMEN IMAGIN10/04/2023 HISTORY: /The patient presents for right stereotactic vacuum assisted needle biopsy as recommended from recent imaging study dated (08/22/23). Pre and post fire hard copy mammographic images were obtained with specimen and tophat clip placement. PATIENT CONSENT: A time out was performed immediately prior to procedure start with the radiology team, correctly identifying the patient name, date of , procedure, anatomy, patient position, relevant diagnostic and radiology test results, safety precautions, and procedure-specific equipment needs. The procedure was explained to the patient including the risks and. Medications and allergies were also reviewed. The radiologist, psychiatric nursing assistant radiologist and technologist were present throughout the entire procedure. Time out: 1345 Procedure start: 1347 Procedure end: 1350 Dr. Narvaez was present during all critical and giang portions of the procedure and scrubbed in and immediately available during the entire procedure. The psychiatric nursing assistant radiologist was Dr. Brown. The psychiatric nursing assistant radiologist performed the procedure. Correlation is made to exam dated: 08/22/2023 mammogram - [facility]. A stereotactic guided biopsy was performed for the concerning area of calcifications located in the right breast central to the nipple anterior depth. This was described on the previous mammography report. The skin was prepped in the usual manner. Local anesthetic was administered to the access site. The abnormality was approached from the lateral aspect using a prone digital tomographic mammography unit. A 12 gauge biopsy needle was placed adjacent to the abnormality under computer guidance and confirmatory stereotactic mammography images were obtained to document needle placement. Once the needle was documented to be in the correct location, six specimens were obtained using a 12g Suros Eviva vacuum assisted biopsy needle. The patient received additional local anesthetic during the procedure. A top hat clip was inserted into the biopsy cavity. A skin closure strip and a sterile dressing were applied to the access site. Post procedure mammographic imaging demonstrates the location device at the targeted area. The specimens were sent to the laboratory for pathological analysis. IMPRESSION: STEREOTACTIC GUIDED BIOPSY Stereotactic guided biopsy of the area of calcifications in the right breast central to the nipple anterior depth with placement of a clip was successful with no apparent post procedure complications. The imaged specimens includes the calcifications. Waiting for pathology results. A final report will be issued when these become available. The procedure was reviewed by a staff physician. Serine jayla Mehta M.D., D.O./tera:10/04/2023 15:24:25 Slab Lifting Engineer(s): RT Macie(R)(M), [facility] Multiple national specialty organizations have released breast cancer screening guidelines for women at average risk for developing breast cancer - guidelines that are based on both evidence and opinion, yet differ on when to start and how often to screen for breast cancer. With representation from Breast Imaging, Internal Medicine, Women's Health, Family Medicine, and Medical/Surgical Oncology, the [facility] has carefully reviewed the data and reached the following consensus: 1) All women should engage in shared decision-making with their providers to decide when to start and how often to screen; 2) All women should have the opportunity to start screening mammography at age 40; 3) For women ages 45-55, we recommend annual screening mammograms; 4) For women ages 55 and over, we support both the transition from an annual to a biennial interval if this aligns more with patient's values and preferences, or continuation with annual screening; 5) All women should discuss with their providers when to stop screening mammograms. Executive Assistant: Tera Transcribe Date/Time: Oct 04 2023 1:21P Dictated by : PATSY BROWN, DO This examination was interpreted and the report reviewed and electronically signed by: LEVI NARVAEZ MD on Oct 04 2023 3:20PM EST This document has been addended by: LEVI NARVAEZ MD on Oct 04 2023 3:24PM EST [facility] MG stereo Guidance for biops y of Breast - rightOrdered By: [facility] Provider on 10-04-2023 [facility] MOLECULAR GENETIC DATAon FISH PROBE (LIMS) HER2 Normal [facility] Comment on above: Order Comment: [place] carbajal Type: BLOOD SPECIMEN Ordering Facility: [facility] Address: [address] [place] [address] Performed By: #### 5 0190-8, 2276-4 #### [facility] CLIA [id number] [address] [place] [address] [place] FISH RESULT (LIMS) Not Amplified Normal [facility] Comment on above: Order Comment: [place] carbajal Type: BLOOD SPECIMEN Ordering Facility: [facility] Address: [address] [place] [address] Performed By: #### 5 0190-8, 2276-4 #### [facility] CLIA [id number] [address] [place] [address] [place] No Panel Informationon 10-03 Radiology Study observation (narrative) [facility] SURGICAL PATHOLOGYon 024 CASE REPORT Normal [facility] Comment on above: Order Comment: [place] carbajal Type: BLOOD SPECIMEN Ordering Facility: [facility] Address: [address] [place] [address] Result Comment: Surg ical Pathology Report Case: [id number] Authorizing Provider: Levi Narvaez MD Collected: 10/04/2023 01:48 PM Ordering Location: Mammography Received: 10/04/2023 03:49 PM Pathologist: Rolando Walters MD Specimens: A) - Breast, Right, Core Biopsy, Calcs anterior. Right breast stereo biopsy. Calcs seen in specimen. Tophat clip B) - Breast, Right, Core Biopsy, Calcs posterior. Right breast stereo biopsy. Calcs seen in specimen. Buckle clip Performed By: #### 5 0190-8, 2276-4 #### [facility] CLIA [id number] [address] [place] [address] DIAGNOSIS COMMENT Normal [facility] Comment on above: Order Comment: Speci men Type: BLOOD SPECIMEN Ordering Facility: [facility] Address: [address] [place] [address] Result Comment: I. I mmunohistochemical stains were performed; E-cadherin reveals loss of membranous staining in the atypical cells of interest, while p120 shows cytoplasmic staining, supportive of lobular phenotype. p63 is negative in these same cells. II. Immunohistochemical stains for SMMS1 and p63 reveals loss of immunoreactivity surrounding the AE1/3-positive tumor cells, supportive of the diagnosis of invasive carcinoma. Immunohistochemical stains were performed; E-cadherin reveals loss of membranous staining, while p120 shows cytoplasmic staining, supportive of lobular phenotype. Breast biomarkers (ER, PgR, and HER2) are pending, the results of which will be reported separately. Select slides of this case were reviewed with Dr Doris Goss of the [facility] Breast Pathology Service, who concurs with the above diagnosis of at least microinvasive carcinoma in Part 2. [facility] 10/09/23 Laboratory Developed Test (LDT) Disclaimer: Performance characteristics of immunohistochemical, immunofluorescent and chromogenic in-situ hybridization tests have been determined by the performing laboratory within [facility]???s [facility] Pathology and Laboratory Medicine Department ([facility], [facility], [facility], [facility], [facility], [facility], or [facility]) in a manner consistent with CLIA requirements. One or more of these tests have not been cleared or approved by the FDA. [facility] is regulated under CLIA as qualified to perform high-complexity testing. These tests are used for clinical purposes. They should not be regarded as investigational or for research. Positive and negative controls stain appropriately. Performed By: #### 5 0190-8, 2276-4 #### [facility] CLIA [id number] [address] [place] [address] FINAL DIAGNOSIS Normal [facility] Comment on above: Order Comment: Speci men Type: BLOOD SPECIMEN Ordering Facility: [facility] Address: [address] [place] [address] Result Comment: Righ t breast, anterior, calcifications, stereotactic-guided core biopsy, with tophat clip placement (A): - Atypical lobular hyperplasia (ALH). - Fibrocystic changes, including usual ductal hyperplasia (UDH), dense stromal fibrosis, cysts, and apocrine metaplasia, and pseudoangiomatous stromal hyperplasia (PASH). - Microcalcifications in non-neoplastic breast epithelium. - Please see Comment I. 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 - Microcalcifications in lobular neoplasia and non-neoplastic breast epithelium. [facility] 10/09/23 Performed By: #### 5 0190-8, 2276-4 #### [facility] CLIA [id number] [address] [place] [address] [place] FINAL PERFORMING LAB Normal [facility] Comment on above: Order Comment: Speci men Type: BLOOD SPECIMEN Ordering Facility: [facility] Address: [address] [place] [address] Result Comment: Diag nostic interpretation performed at [facility], [address] [place] [address] CLIA# [id number] Cellars Supervisor: Tavo Roberts M.D. Performed By: #### 5 0190-8, 2276-4 #### [facility] CLIA [id number] [address] [place] [address] [place] GROSS DESCRIPTION Normal [facility] Comment on above: Order Comment: Speci men Type: BLOOD SPECIMEN Ordering Facility: [facility] Address: [address] [place] [address] Result Comment: A. Charles reast, Right, Core Biopsy Received in formalin labeled as ``right breast? are multiple segments of cylindrical tissue aggregating to 2.2 x 1.2 x 0.2 cm, pascual-white to yellow and pascual to brown and of a soft consistency. The specimen was removed from the patient at 13:48 on 10/04/2023. On the same day, the specimen was placed in formalin at 13:50. Totally submitted in formalin in one cassette. B. Breast, Right, Core Biopsy Received in formalin labeled as ``right breast? are multiple segments of cylindrical tissue aggregating to 2.3 x 1.2 x 0.2 cm, pascual-white to yellow and pascual to brown and of a soft consistency. The specimen was removed from the patient at 14:15 on 10/04/2023. On the same day, the specimen was placed in formalin at 14:18. Totally submitted in formalin in one cassette. DB October 04, 2023 9:42 PM Gross examination performed at [facility], [address] [place] [address] Performed By: #### 5 0190-8, 2276-4 #### [facility] CLIA [id number] [address] [place] [address] [facility] CNOVon 09-15-2023 CNOV Office Visit (INTMWS ) -------- ALBERTO RODRIGUEZ ([id number]) 1935 F Date Time Provider Department 09/15/23 12:20 PM ANGÉLICA PULIDO INTMWS During your visit today, we recorded the following information about you: Pulse Respiration Blood pressure Weight 80/minute 16/minute 105/64 60.8 kg Angélica Pulido APRN.FUNCTIONAL ARCHITECT 09/15/2023 12:55 PM Signed SUBJECTIVE: Covid-19 Vaccine( season) due on 04/20/2023 HPI Alberto Rodriguez is a 87 year old female. PMH significant for ACTIVE PROBLEM LIST Pain in Limb Iron Deficiency Anemia Pure Hypercholesterolemia Anxiety State Disorder of Bone and Cartilage Lipoma of Other Skin and Subcutaneous Tissue Esophageal Reflux PAIN ABDOMEN( Right Upper Quadrant) GASTRITIS ANTRAL( W/O Hemorrhage) Acute Gastritis Without Mention of Hemorrhage CHOLECYSTITIS SEE ALSO GALLBLADDER CHRONIC MULTINODULAR GOITER (NONTOXIC) Phn (Postherpetic Neuralgia) Pinched Nerve in Neck Hot Flashes Essential Hypertension Pain of Left Hip Joint PCP: Ramandeep Alvarez MD Presents for concern regarding hives. Alberto Rodriguez is a 87 year old female who presents with complaint of itchy rash on right hand, anterior aspect and at left side of her neck near her chin. No hives noted, mild erythema only. No warmth induration or drainage. She notes itchy rash bilateral groins. Both present for a few days. Home treatments have not helped much. Not spreading. Afebrile. Review of Systems Constitutional: Negative. Skin: Positive for rash. Objective BP 105/64 Pulse 80 Resp 16 Wt 60.8 kg (134 lb) BMI 25.32 kg/m? Physical Exam Vitals and nursing note reviewed. Constitutional: Appearance: Normal appearance. HENT: Head: Normocephalic and atraumatic. Eyes: Conjunctiva/sclera: Conjunctivae normal. Neck: Thyroid: No thyromegaly. Vascular: Normal carotid pulses. No JVD. Cardiovascular: Rate and Rhythm: Normal rate and regular rhythm. Pulses: Carotid pulses are 2+ on the right side and 2+ on the left side. Radial pulses are 2+ on the right side and 2+ on the left side. Heart sounds: Normal heart sounds. Pulmonary: Effort: Pulmonary effort is normal. Breath sounds: Normal breath sounds. Abdominal: General: Bowel sounds are normal. Palpations: Abdomen is soft. Skin: General: Skin is warm and dry. Comments: Mild erythema to anterior aspect of right hand approximately 1 inch diameter, left side neck about 1/2 diameter with no drainage warmth or induration. Bilateral groin with erythema at groin crease appox 1/2x3 both sidescrease Neurological: General: No focal deficit present. Mental Status: She is alert and oriented to person, place, and time. ALLERGIES Allergen Reactions Vicodin [Hydrocodon* Intolerance Medication gabapentin (NEURONTIN) 100 mg capsule Take 1 capsule by mouth daily at bedtime for 180 days. estradiol (ESTRACE) 1 mg tablet Take 1 tablet by mouth once daily. Begin with half a pill, if symptoms dont get better take 1 pill nortriptyline (PAMELOR) 50 mg capsule TAKE ONE CAPSULE BY MOUTH EVERY DAY AT BEDTIME pravastatin (PRAVACHOL) 40 mg tablet Take 1 tablet by mouth daily at bedtime. losartan (COZAAR) 25 mg tablet Take 1 tablet by mouth once daily. potassium chloride (K-TAB) 10 mEq tablet Take 1 tablet by mouth daily with breakfast. On days she takes lasix furosemide (LASIX) 20 mg tablet take 1 tablet by mouth every other day amLODIPine (NORVASC) 2.5 mg tablet Take 1 tablet by mouth once daily. JUBLIA 10 % gunjan >Zippered Compression Knee High 30-40 mm custom CUSTOM MEASURE FOR KNEE HIGH HO COMPRESSION STOCKINGS, 30-40 MM, WITH ZIPPERS PLEASE. IF UNABLE, PLEASE REFER TO CHUNG AT [facility]. DX: EDEMA multivitamin tablet Take 1 tablet by mouth once daily. Aspirin 81 mg Tab Take 81 mg by mouth once daily. cholecalciferol (VITAMIN D3) 50 mcg (2,000 unit) tablet Take by mouth once daily. CALCIUM 500 MG TAB Take 1500mg daily when she remebers naproxen sodium(ALEVE 220 MG TAB) Take one(1) tablet twice daily.as necessary triamcinolone acetonide (KENALOG) 0.1 % cream Apply 1 application to affected area three times a day for 14 days. Apply to affected area. On hand and neck nystatin-triamcinolone (MYCOLOG) ointment Apply sparingly to red areas both groins twice daily for irritation/infection. PAST MEDICAL HISTORY Diagnosis Date Anxiety state, unspecified Disorder of bone and cartilage, unspecified 05/02/2005 Iron deficiency anemias Lipoma of other skin and subcutaneous tissue 05/02/2005 Pain in limb Pneumonia 2010 PURE HYPERCHOLESTEROLEM Pure hypercholesterolemia Urinary tract infection, site not specified Social History Tobacco Use Smoking status: Never Smokeless tobacco: Never Vaping Use Vaping Use: Never used Substance Use Topics Alcohol use: Yes Comment: occasionally Drug use: No Latest Ref Rng (more content not included)... [facility] Tele[facility] (INTMWS) -------- ALBERTO RODRIGUEZ ([id number]) 1935 F Date Time Provider Department 09/05/23 RAMANDEEP ALVAREZ During your visit today, we recorded the following information about you: Mara Gimenez LPN 09/05/2023 8:14 AM Signed ----- Message from Angélica Pulido APRN.FUNCTIONAL ARCHITECT sent at 09/03/2023 2:08 PM EDT ----- FOBT negative Mara Gimenez LPN 09/05/2023 8:14 AM Signed Left a message for pt to call the office and ask to speak to a nurse. CHIQUITA Siu Laurie Lynn, LPN 09/05/2023 8:15 AM Signed ----- Message from Angélica Pulido APRN.FUNCTIONAL ARCHITECT sent at 09/03/2023 3:49 PM EDT ----- Needs biopsy scheduled Mara Gimenez LPN 09/05/2023 8:18 AM Addendum Advise pt of both messages when she calls back. (bx due to mammogram) CHIQUITA Siu Krista, LPN 09/05/2023 12:28 PM Signed Pt notified of IFOBT results. Pt reports she spoke to someone who said she would be getting a call to set up biopsy appt. Blanca Smith LPN Allergies As of Date: 09/05/2023 Noted Allergy Reaction VICODIN (HYDROCODONE-ACETAMINOPH E*04/27/2009 5 - Intolerance Date Reviewed: 08/29/2023 Reviewed by: Riley Gregory MD - Fully Assessed Reason for Visit: Results [95] Prescriptions as of 09/05/2023 - ferrous sulfate 325 mg (65 mg iron) tablet Take 1 tablet by mouth every other day. - gabapentin (NEURONTIN) 100 mg capsule Take 1 capsule by mouth daily at bedtime for 180 days. - estradiol (ESTRACE) 1 mg tablet Take 1 tablet by mouth once daily. Begin with half a pill, if symptoms dont get better take 1 pill - nortriptyline (PAMELOR) 50 mg capsule TAKE ONE CAPSULE BY MOUTH EVERY DAY AT BEDTIME - pravastatin (PRAVACHOL) 40 mg tablet Take 1 tablet by mouth daily at bedtime. - losartan (COZAAR) 25 mg tablet Take 1 tablet by mouth once daily. - potassium chloride (K-TAB) 10 mEq tablet Take 1 tablet by mouth daily with breakfast. On days she takes lasix - furosemide (LASIX) 20 mg tablet take 1 tablet by mouth every other day - amLODIPine (NORVASC) 2.5 mg tablet Take 1 tablet by mouth once daily. - JUBLIA 10 % gunjan - >Zippered Compression Knee High 30-40 mm custom CUSTOM MEASURE FOR KNEE HIGH HO COMPRESSION STOCKINGS, 30-40 MM, WITH ZIPPERS PLEASE. IF UNABLE, PLEASE REFER TO CHUNG AT [facility]. DX: EDEMA - multivitamin tablet Take 1 tablet by mouth once daily. - Aspirin 81 mg Tab Take 81 mg by mouth once daily. - cholecalciferol (VITAMIN D3) 50 mcg (2,000 unit) tablet Take by mouth once daily. - CALCIUM 500 MG TAB Take 1500mg daily when she remebers - naproxen sodium(ALEVE 220 MG TAB) Take one(1) tablet twice daily.as necessary Problem List As Of Date 09/05/2023 Noted Resolved PAIN IN LIMB [M79.609] Iron deficiency anemia [D50.9] PURE HYPERCHOLESTEROLEM [E78.00] Anxiety state [F41.1] Urinary tract infection, site not specified [N3* 12/30/2015 Disorder of bone and cartilage [M89.9, M94.9] 05/02/2005 LIPOMA SKIN NEC [D17.39] 05/02/2005 ESOPHAGEAL REFLUX [K21.9] 05/02/2005 PAIN ABDOMEN( Right Upper Quadrant) [R10.11] 07/16/2007 GASTRITIS ANTRAL( W/O Hemorrhage) [K29.60] 07/27/2007 ACUTE GASTRITIS W/O HEMORRHAGE [K29.00] 07/27/2007 CHOLECYSTITIS SEE ALSO GALLBLADDER CHRONIC [K*08/13/2007 Dysuria [R30.0] 08/16/2007 06/27/2014 MULTINODULAR GOITER (NONTOXIC) [E04.2] 10/30/2008 Hot flash, menopausal [N95.1] 06/21/2011 06/27/2014 PHN (postherpetic neuralgia) [B02.29] 02/06/2012 Postherpetic neuralgia [B02.29] 06/14/2012 06/27/2014 Pinched nerve in neck [G58.9] 01/31/2018 Hot flashes [R23.2] 09/21/2018 Essential hypertension [I10] 04/14/2022 Pain of left hip joint [M25.552] 07/19/2022 Encounter Status:Closed by BLANCA SMITH on 09/05/23 [facility] CNOVon 08-29-2023 CNOV Office Visit (GENSWS ) -------- ALBERTO RODRIGUEZ ([id number]) 1935 F Date Time Provider Department 08/29/23 2:30 PM RILEY GREGORY GENSWS During your visit today, we recorded the following information about you: Blood pressure Weight Height 112/64 63 kg 1.549 m Lacey Richmond LPN 08/29/2023 4:11 PM Signed REVIEW OF SYSTEMS: General: The patient denies fatigue, denies weight loss, denies weight gain, denies feeling hot, and denies feelings of cold. Eyes: The patient denies glaucoma, denies eye injury/surgery, wears glasses or contacts. Ear/Nose/Throat: The patient denies allergies, denies hayfever, denies ear infections, and denies bloody noses. Cardiovascular: The patient denies chest pain, denies heart disease, denies high blood pressure,denies cardiac stent, denies prior heart attack, denies irregular heart beat, NOTES high cholesterol, denies poor circulation, denies heart failure, other cardiac issues, denies claudication, denies cold feet, denies peripheral arterial stent. Respiratory: The patient denies tuberculosis, denies pneumonia, denies frequent cough, denies pulmonary embolism, denies shortness of breath, and denies coughing up blood. Gastrointestinal: The patient denies difficulty swallowing, denies acid reflux, denies ulcers, denies vomiting, denies jaundice/hepatitis, denies gallbladder problems, denies black or tarry stools, denies hemorrhoids, denies bleeding from rectum, denies diverticulitis, denies constipation, denies diarrhea, denies loss of stool control, and denies hernias. Kidney/Bladder: The patient denies kidney stones, denies urine infections, and denies bloody urine. Skin: The patient denies a history of skin cancer, denies bleeding/changing moles, and denies a history of skin rash. Neurologic: The patient denies a history of epilepsy/convulsions, denies headaches, denies head/spinal injuries, and denies stroke/TIA. Psychiatric: The patient denies psychiatric medications, denies depression, and denies voices, denies substance abuse. Endocrine: The patient denies thyroid disorders, denies diabetes, and denies hormonal problems. Hematologic: The patient denies a history of bruising, denies bleeding, and denies anemia, denies blood clots. Infections: The patient denies a history of measles and mumps, denies rheumatic fever, and denies sexually transmitted diseases. Musculoskeletal: The patient denies back pain/injury, denies back problems, denies sciatica, denies knee/foot trouble, NOTES arthritis, or denies gout. When was patient's last Mammogram screening? 2023 Last Colonoscopy: 2018 CHIQUITA Coe Richard T, MD 08/29/2023 6:10 PM Signed HISTORY AND PHYSICAL - BREAST COMPLAINT -RIGHT BREAST MICROCALCIFICATIONS Alberto Rodriguez 1935 REFERRING PHYSICIAN: Angélica Pulido CHIEF COMPLAINT: Abnormal breast imaging HPI: The patient is a 87 year old female with a complaint of an abnormal mammogram. The patient had a screening mammogram on July 27, 2023 with a follow-up diagnostic bilateral mammogram withleft breast ultrasound on August 22, 2023 which demonstrated: IMPRESSION: SUSPICIOUS FINDING - BIOPSY SHOULD BE CONSIDERED The grouped pleomorphic calcifications in the right breast superior lateral quadrant middle depth are suspicious of malignancy. A stereotactic biopsy is recommended. The grouped heterogeneous calcifications in the right breast central to the nipple anterior depth are suspicious of malignancy. A stereotactic biopsy is recommended. The 6 mm oval asymmetry in the left breast at 6 o'clock posterior depth is indeterminate. An ultrasound is recommended. LIMITED ULTRASOUND OF LEFT BREAST: 08/22/2023 RESULT: Comparison is made to exams dated: 07/27/2023 mammogram, 07/01/2021 mammogram, and 06/03/2020 mammogram - [facility]. Color flow and real-time ultrasound of the left breast 6 o'clock region were performed. Nation scale images of the real-time examination were reviewed. There is a benign 0.8 cm x 0.6 cm x 0.8 cm oval cyst in the left breast at 6 o'clock posterior depth. This correlates with mammography findings. Color flow imaging demonstrates that there is no vascularity present. IMPRESSION: BENIGN FINDING There is no sonographic evidence of malignancy. The 0.8 cm x 0.6 cm x 0.8 cm oval cyst in the left breast is consistent with a simple cyst and is benign. The patient denies a history of malignant breast masses. She did have a previous excision of a left breast mass many years previously which was apparently unremarkable. She has 2 sisters each of which were diagnosed with breast cancer one at age 35. She does perform a self breast exam routinely. She notes no skin changes. She denies nipple discharge. She notes no axillary masses. She states she has had areas that she told had microcalcifications in the past. (more content not included)... Normal [facility] DBT Breast - bilateral diagn ostic for implanton 08-22-2023 * * *Final Report* * * DATE OF EXAM: Aug 22 2023 8:35AM [id number] - [facility] JEREMIAS Ocampo ARMANDO EMELIA / PROCEDURE REASON: Abnormal mammogram of both breasts * * * * Physician Interpretation * * * * RESULT: #[id number] - VALERI JEREMIAS Ocampo ARMANDO EMELIA #[id number] - [facility] US BREAST LTD LT BILATERAL DIGITAL DIAGNOSTIC MAMMOGRAM TOMOSYNTHESIS WITH CAD: 08/22/2023 HISTORY: Abnormal Mammogram Of Both Breasts/call back bilateral /priors available for comparison Abnormal Mammogram Of Both Breasts. RESULT: TECHNIQUE: The study was acquired using full field digital technology and interpreted from soft copy. Digital Breast Tomosynthesis (DBT) images were obtained and used to assist in the interpretation of this examination. Current study was also evaluated with a Computer Aided Detection (CAD). Comparison is made to exams dated: 07/27/2023 mammogram, 07/01/2021 mammogram, and 06/03/2020 mammogram - [facility]. The breasts are heterogeneously dense, which may obscure small masses. There are grouped pleomorphic calcifications in the right breast superior lateral quadrant middle depth. There also are grouped heterogeneous calcifications in the right breast central to the nipple anterior depth. There is a 6 mm oval asymmetry with an obscured margin in the left breast at 6 o'clock posterior depth. No other significant masses or calcifications are seen in either breast. DIVISION OF RADIOLOGY Provider, [facility] - 08/22/2023 * * *Final Report* * * DATE OF EXAM: Aug 22 2023 8:35AM [facility] 0627 - [facility] DIAG W ARMANDO EMELIA / PROCEDURE REASON: Abnormal mammogram of both breasts * * * * Physician Interpretation * * * * RESULT: #[id number] - [facility] DIAG W ARMANDO EMELIA #[id number] - [facility] BREAST [facility] BILATERAL DIGITAL DIAGNOSTIC MAMMOGRAM TOMOSYNTHESIS WITH CAD: 08/22/2023 HISTORY: Abnormal Mammogram Of Both Breasts/call back bilateral /priors available for comparison Abnormal Mammogram Of Both Breasts. RESULT: TECHNIQUE: The study was acquired using full field digital technology and interpreted from soft copy. Digital Breast Tomosynthesis (DBT) images were obtained and used to assist in the interpretation of this examination. Current study was also evaluated with a Computer Aided Detection (CAD). Comparison is made to exams dated: 07/27/2023 mammogram, 07/01/2021 mammogram, and 06/03/2020 mammogram - [facility]. The breasts are heterogeneously dense, which may obscure small masses. There are grouped pleomorphic calcifications in the right breast superior lateral quadrant middle depth. There also are grouped heterogeneous calcifications in the right breast central to the nipple anterior depth. There is a 6 mm oval asymmetry with an obscured margin in the left breast at 6 o'clock posterior depth. No other significant masses or calcifications are seen in either breast. IMPRESSION IMPRESSION: SUSPICIOUS FINDING - BIOPSY SHOULD BE CONSIDERED The grouped pleomorphic calcifications in the right breast superior lateral quadrant middle depth are suspicious of malignancy. A stereotactic biopsy is recommended. The grouped heterogeneous calcifications in the right breast central to the nipple anterior depth are suspicious of malignancy. A stereotactic biopsy is recommended. The 6 mm oval asymmetry in the left breast at 6 o'clock posterior depth is indeterminate. An ultrasound is recommended. LIMITED ULTRASOUND OF LEFT BREAST: 08/22/2023 RESULT: Comparison is made to exams dated: 07/27/2023 mammogram, 07/01/2021 mammogram, and 06/03/2020 mammogram - [facility]. Color flow and real-time ultrasound of the left breast 6 o'clock region were performed. Nation scale images of the real-time examination were reviewed. There is a benign 0.8 cm x 0.6 cm x 0.8 cm oval cyst in the left breast at 6 o'clock posterior depth. This correlates with mammography findings. Color flow imaging demonstrates that there is no vascularity present. IMPRESSION: BENIGN FINDING There is no sonographic evidence of malignancy. The 0.8 cm x 0.6 cm x 0.8 cm oval cyst in the left breast is consistent with a simple cyst and is benign. Patrice cruz/tera:08/22/2023 09:30:20 Multiple national specialty organizations have released breast cancer screening guidelines for women at average risk for developing breast cancer - guidelines that are based on both evidence and opinion, yet differ on when to start and how often to screen for breast cancer. With representation from Breast Imaging, Internal Medicine, Women's Health, Family Medicine, and Medical/Surgical Oncology, the [facility] has carefully reviewed the data and reached the following consensus: 1) All women should engage in shared decision-making with their providers to decide when to start and how often to screen; 2) All women should have the opportunity to start screening mammography at age 40; 3) For women ages 45-55, we recommend annual screening mammograms; 4) For women ages 55 and over, we support both the transition from an annual to a biennial interval if this aligns more with patient's values and preferences, or continuation with annual screening; 5) All women should discuss with their providers when to stop screening mammograms. Slab Lifting Engineer(s): Libertad Allan RT(R)(M), [facility]; Izzy Andrea, [facility] OVERALL STUDY BIRADS: 4 Suspicious finding - Biopsy should be considered Executive Assistant: Tera Transcribe Date/Time: Aug 22 2023 8:05A Dictated by: PATRICE HIGHTOWER MD This examination was interpreted and the report reviewed and electronically signed by: PATRICE HIGHTOWER MD on Aug 22 2023 9:30AM EST [facility] No Panel Informationon 08-21 IMPRESSION: SUSPICIO US FINDING - BIOPSY SHOULD BE CONSIDERED The grouped pleomorphic calcifications in the right breast superior lateral quadrant middle depth are suspicious of malignancy. A stereotactic biopsy is recommended. The grouped heterogeneous calcifications in the right breast central to the nipple anterior depth are suspicious of malignancy. A stereotactic biopsy is recommended. The 6 mm oval asymmetry in the left breast at 6 o'clock posterior depth is indeterminate. An ultrasound is recommended. LIMITED ULTRASOUND OF LEFT BREAST: 08/22/2023 RESULT: Comparison is made to exams dated: 07/27/2023 mammogram, 07/01/2021 mammogram, and 06/03/2020 mammogram - [facility]. Color flow and real-time ultrasound of the left breast 6 o'clock region were performed. Nation scale images of the real-time examination were reviewed. There is a benign 0.8 cm x 0.6 cm x 0.8 cm oval cyst in the left breast at 6 o'clock posterior depth. This correlates with mammography findings. Color flow imaging demonstrates that there is no vascularity present. IMPRESSION: BENIGN FINDING There is no sonographic evidence of malignancy. The 0.8 cm x 0.6 cm x 0.8 cm oval cyst in the left breast is consistent with a simple cyst and is benign. Patrice cruz/tera:08/22/2023 09:30:20 Multiple national specialty organizations have released breast cancer screening guidelines for women at average risk for developing breast cancer - guidelines that are based on both evidence and opinion, yet differ on when to start and how often to screen for breast cancer. With representation from Breast Imaging, Internal Medicine, Women's Health, Family Medicine, and Medical/Surgical Oncology, the [facility] has carefully reviewed the data and reached the following consensus: 1) All women should engage in shared decision-making with their providers to decide when to start and how often to screen; 2) All women should have the opportunity to start screening mammography at age 40; 3) For women ages 45-55, we recommend annual screening mammograms; 4) For women ages 55 and over, we support both the transition from an annual to a biennial interval if this aligns more with patient's values and preferences, or continuation with annual screening; 5) All women should discuss with their providers when to stop screening mammograms. Slab Lifting Engineer(s): RT Jaliene(R)(M), [facility]; Izzy Andrea, [facility] OVERALL STUDY BIRADS: 4 Suspicious finding - Biopsy should be considered Executive Assistant: Tera Transcribe Date/Time: Aug 22 2023 8:05A Dictated by: PATRICE HIGHTOWER MD This examination was interpreted and the report reviewed and electronically signed by: PATRICE HIGHTOWER MD on Aug 22 2023 9:30AM [facility] DIVISION OF RADIOLOGY Radiology Study observation (narrative) [facility] No Panel InformationOrdered By: [facility] Provider on 08-22-2023 [facility] Breast - left limitedon 0 08-22-2023 * * *Final Report* * * DATE OF EXAM: Aug 22 2023 8:49AM [id number] - [facility] [employer] BREAST LTD LT / PROCEDURE REASON: Abnormal mammogram of both breasts * * * * Physician Interpretation * * * * #[id number] - [facility] JEREMIAS W ARMANDO EMELIA #[id number] - [facility] [employer] BREAST LTD LT BILATERAL DIGITAL DIAGNOSTIC MAMMOGRAM TOMOSYNTHESIS WITH CAD: 08/22/2023 HISTORY: Abnormal Mammogram Of Both Breasts/call back bilateral /priors available for comparison Abnormal Mammogram Of Both Breasts. RESULT: TECHNIQUE: The study was acquired using full field digital technology and interpreted from soft copy. Digital Breast Tomosynthesis (DBT) images were obtained and used to assist in the interpretation of this examination. Current study was also evaluated with a Computer Aided Detection (CAD). Comparison is made to exams dated: 07/27/2023 mammogram, 07/01/2021 mammogram, and 06/03/2020 mammogram - [facility]. The breasts are heterogeneously dense, which may obscure small masses. There are grouped pleomorphic calcifications in the right breast superior lateral quadrant middle depth. There also are grouped heterogeneous calcifications in the right breast central to the nipple anterior depth. There is a 6 mm oval asymmetry with an obscured margin in the left breast at 6 o'clock posterior depth. No other significant masses or calcifications are seen in either breast. DIVISION OF RADIOLOGY Provider, [facility] 08/22/2023 * * *Final Report* * * DATE OF EXAM: Aug 22 2023 8:49AM [id number] - [facility] BREAST LTD LT / PROCEDURE REASON: Abnormal mammogram of both breasts * * * * Physician Interpretation * * * * #[id number] - [facility] DIAG W ARMANDO EMELIA #[id number] - [facility] [employer] BREAST LTD LT BILATERAL DIGITAL DIAGNOSTIC MAMMOGRAM TOMOSYNTHESIS WITH CAD: 08/22/2023 HISTORY: Abnormal Mammogram Of Both Breasts/call back bilateral /priors available for comparison Abnormal Mammogram Of Both Breasts. RESULT: TECHNIQUE: The study was acquired using full field digital technology and interpreted from soft copy. Digital Breast Tomosynthesis (DBT) images were obtained and used to assist in the interpretation of this examination. Current study was also evaluated with a Computer Aided Detection (CAD). Comparison is made to exams dated: 07/27/2023 mammogram, 07/01/2021 mammogram, and 06/03/2020 mammogram - [facility]. The breasts are heterogeneously dense, which may obscure small masses. There are grouped pleomorphic calcifications in the right breast superior lateral quadrant middle depth. There also are grouped heterogeneous calcifications in the right breast central to the nipple anterior depth. There is a 6 mm oval asymmetry with an obscured margin in the left breast at 6 o'clock posterior depth. No other significant masses or calcifications are seen in either breast. IMPRESSION IMPRESSION: SUSPICIOUS FINDING - BIOPSY SHOULD BE CONSIDERED The grouped pleomorphic calcifications in the right breast superior lateral quadrant middle depth are suspicious of malignancy. A stereotactic biopsy is recommended. The grouped heterogeneous calcifications in the right breast central to the nipple anterior depth are suspicious of malignancy. A stereotactic biopsy is recommended. The 6 mm oval asymmetry in the left breast at 6 o'clock posterior depth is indeterminate. An ultrasound is recommended. LIMITED ULTRASOUND OF LEFT BREAST: 08/22/2023 RESULT: Comparison is made to exams dated: 07/27/2023 mammogram, 07/01/2021 mammogram, and 06/03/2020 mammogram - [facility]. Color flow and real-time ultrasound of the left breast 6 o'clock region were performed. Nation scale images of the real-time examination were reviewed. There is a benign 0.8 cm x 0.6 cm x 0.8 cm oval cyst in the left breast at 6 o'clock posterior depth. This correlates with mammography findings. Color flow imaging demonstrates that there is no vascularity present. IMPRESSION: BENIGN FINDING There is no sonographic evidence of malignancy. The 0.8 cm x 0.6 cm x 0.8 cm oval cyst in the left breast is consistent with a simple cyst and is benign. Patrice cruz/tera:08/22/2023 09:30:20 Multiple national specialty organizations have released breast cancer screening guidelines for women at average risk for developing breast cancer - guidelines that are based on both evidence and opinion, yet differ on when to start and how often to screen for breast cancer. With representation from Breast Imaging, Internal Medicine, Women's Health, Family Medicine, and Medical/Surgical Oncology, the [facility] has carefully reviewed the data and reached the following consensus: 1) All women should engage in shared decision-making with their providers to decide when to start and how often to screen; 2) All women should have the opportunity to start screening mammography at age 40; 3) For women ages 45-55, we recommend annual screening mammograms; 4) For women ages 55 and over, we support both the transition from an annual to a biennial interval if this aligns more with patient's values and preferences, or continuation with annual screening; 5) All women should discuss with their providers when to stop screening mammograms. Slab Lifting Engineer(s): RT Jailene(R)(M), [facility]; Izzy Andrea, [facility] OVERALL STUDY BIRADS: 4 Suspicious finding - Biopsy should be considered Executive Assistant: Tera Transcribe Date/Time: Aug 22 2023 8:05A Dictated by : PATRICE HIGHTOWER MD This examination was interpreted and the report reviewed and electronically signed by: PATRICE HIGHTOWER MD on Aug 22 2023 9:30AM EST [facility] CBC W Auto Differential pane l (Bld)on 07-11-2023 Basophils (Bld) [#/Vol] 0.07 10*3/uL <0.11 k/uL [facility] Basophils/100 WBC (Bld) 0.9 % [facility] Differential cell count method Nom (Bld) Auto [facility] Eosinophils (Bld) [#/Vol] 0.15 10*3/uL <0.46 k/uL [facility] Eosinophils/100 WBC (Bld) 1.9 % [facility] Erythrocyte distribution width (RBC) [Ratio] 16.6 % High 11.5 - 15.0 % [facility] Hematocrit (Bld) [Volume fraction] 35.2 % Low 36.0 - 46.0 % [facility] Hemoglobin (Bld) [Mass/Vol] 10.8 g/dL Low 11.5 - 15.5 g/dL [facility] Immature granulocytes (Bld) [#/Vol] 0.04 10*3/uL <0.10 k/uL [facility] Immature granulocytes/100 WBC (Bld) 0.5 % [facility] Lymphocytes (Bld) [#/Vol] 1.65 10*3/uL 1.00 - 4.00 k/uL [facility] Lymphocytes/100 WBC (Bld) 20.6 % [facility] MCH (RBC) [Entitic mass] 25.4 pg Low 26.0 - 34.0 pg [facility] MCHC (RBC) [Mass/Vol] 30.7 g/dL 30.5 - 36.0 g/dL [facility] MCV (RBC) [Entitic vol] 82.8 fL 80.0 - 100.0 fL [facility] Monocytes (Bld) [#/Vol] 0.65 10*3/uL <0.87 k/uL [facility] Monocytes/100 WBC (Bld) 8.1 % [facility] Neutrophils (Bld) [#/Vol] 5.46 10*3/uL 1.45 - 7.50 k/uL [facility] Neutrophils/100 WBC (Bld) 68.0 % [facility] Nucleated RBC (Bld) [#/Vol] <0.01 k/uL [facility] Nucleated RBC/100 WBC (Bld) [Ratio] 0.0 /100 WBC [facility] Platelet mean volume (Bld) [Entitic vol] 9.3 fL 9.0 - 12.7 fL [facility] Platelets (Bld) [#/Vol] 407 10*3/uL High 150 - 400 k/uL [facility] RBC (Bld) [#/Vol] 4.25 10*6/uL 3.90 - 5.2 0 m/uL [facility] WBC (Bld) [#/Vol] 8.02 10*3/uL 3.70 - 11. 00 k/uL [facility] Comprehensive metabolic 2000 panelon 07-11-2023 Albumin [Mass/Vol] 4.1 g/dL 3.9 - 4.9 g/dL [facility] ALP [Catalytic activity/Vol] 111 U/L 34 - 123 U/L [facility] ALT [Catalytic activity/Vol] 14 U/L 7 - 38 U/L [facility] Anion gap [Moles/Vol] 14 mmol/L 9 - 18 mmol/L [facility] AST [Catalytic activity/Vol] 24 U/L 13 - 35 U/L [facility] Bilirubin [Mass/Vol] 0.2 mg/dL 0.2 - 1 .3 mg/dL [facility] Calcium [Mass/Vol] 9.8 mg/dL 8.5 - 10. 2 mg/dL [facility] Chloride [Moles/Vol] 102 mmol/L 97 - 10 5 mmol/L [facility] CO2 [Moles/Vol] 24 mmol/L 22 - 30 mmol/L [facility] Creatinine [Mass/Vol] 1.00 mg/dL High 0.58 - 0.96 mg/dL [facility] Estimated Glomerular Filtration Rate 55 mL/min/1.73m Low >=60 mL/min/1.73m [facility] Glucose [Mass/Vol] 83 mg/dL 74 - 99 mg/dL [facility] Potassium [Moles/Vol] 4.7 mmol/L 3.7 - 5.1 mmol/L [facility] Protein [Mass/Vol] 7.6 g/dL 6.3 - 8.0 g/dL [facility] Sodium [Moles/Vol] 140 mmol/L 136 - 144 mmol/L [facility] Urea nitrogen [Mass/Vol] 19 mg/dL 7 - 21 mg/dL [facility] Lipid 1996 panelon 4 Cholesterol [Mass/Vol] 209 mg/dL High <200 mg/dL [facility] Cholesterol in HDL [Mass/Vol] 74 mg/dL >39 mg/dL [facility] Cholesterol in LDL [Mass/Vol] 106 mg/dL High <100 mg/dL [facility] Cholesterol in LDL/Cholesterol in HDL [Mass ratio] 1.43 {ratio} <2.54 [facility] Cholesterol in VLDL [Mass/Vol] 29 mg/dL <30 mg/dL [facility] Cholesterol non HDL [Mass/Vol] 135 mg/dL High <130 mg/dL [facility] Cholesterol.total/Chol esterol in HDL [Mass ratio] 2.82 {ratio} <5.10 [facility] Fasting Time 15 hrs [facility] Triglyceride [Mass/Vol] 147 mg/dL <150 mg/dL [facility] THYROID STIMULATING HORMONEo n 07-11-2023 TSH Qn 4.470 m[IU]/L High 0.270 - 4.200 mIU/L [facility] XR HIP GENERAL 3V PELV/AP/LA T LEFTon 07-08-2022 [facility] XR Pelvis and Hip - left AP and Lateral frogon 07-08-2022 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 Executive Assistant: BUTCH Transcribe Date/Time: Jul 08 2022 7:09P Dictated by : KILLIAN MEZA MD This examination was interpreted and the report reviewed and electronically signed by: KILLIAN MEZA MD on Jul 08 2022 7:15PM [facility] DIVISION OF RADIOLOGY * * *Final Report* * * DATE OF EXAM: Jul 08 2022 3:08PM WOX 5351 - XR HIP 3V PELV+ AP/LAT LT / PROCEDURE REASON: multiple diagnoses * * * * Physician Interpretation * * * * XR HIP 3V PELV+ AP/LAT LT PROVIDED HISTORY: Chronic left hip pain Chronic left hip pain COMPARISON: No previous similar exams are available for comparison TECHNIQUE: AP pelvis and 2 views of the left hip. RESULT: Moderate to severe narrowing at both hip joints. Pelvic ring appears intact. Bony mineralization is within normal limits. Moderate to severe lower lumbar degenerative change. Vascular calcifications. DIVISION OF RADIOLOGY Provider, Gilda Santiago - 07/08/2022 * * *Final Report* * * DATE OF EXAM: Jul 08 2022 3:08PM WOX 5351 - XR HIP 3V PELV+ AP/LAT LT / PROCEDURE REASON: multiple diagnoses * * * * Physician Interpretation * * * * XR HIP 3V PELV+ AP/LAT LT PROVIDED HISTORY: Chronic left hip pain Chronic left hip pain COMPARISON: No previous similar exams are available for comparison TECHNIQUE: AP pelvis and 2 views of the left hip. RESULT: Moderate to severe narrowing at both hip joints. Pelvic ring appears intact. Bony mineralization is within normal limits. Moderate to severe lower lumbar degenerative change. Vascular calcifications. IMPRESSION 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 Executive Assistant: [facility] HOSPITALCharles Transcribe Date/Time: Jul 08 2022 7:09P Dictated by : KILLIAN MEZA MD This examination was interpreted and the report reviewed and electronically signed by: KILLIAN MEZA MD on Jul 08 2022 7:15PM EST [facility] Radiology Study observation (narrative) [facility] XR Pelvis and Hip - left AP and Lateral frogOrdered By: [facility] Provider on 07-08-2022 [facility] Brain/Head without Contrasto n 11-24-2021 Brain/Head without Contrast [facility] Imaging Services [address] [place] [id number] Brain/Head without Contrast MR#: [id number] Acct: [id number] Name: ALBERTO RODRIGUEZ Rep #: [id number] : 1935 F [id number] From: Lucas jung MD PCP: Dr. Ramandeep Alvarez MD Status: PRE ER Study: Brain/Head without Contrast Date of Exam: 10/27 04/17 Exam# [id number] Ordering Dr: Daniel Wheeler DO STUDY: CT BRAIN WITHOUT CONTRAST REASON FOR EXAM: Female, 86 years old. Headache RADIATION DOSAGE (If Supplied By Facility): CTDIvol = ( 44.99 ) mGy, DLP = ( 762.36 ) mGycm TECHNIQUE: Transaxial CT imaging of the brain was performed without administration of intravenous contrast material. Individualized dose optimization techniques were used for this CT. COMPARISON: No relevant priors. FINDINGS: Normal soft tissue structures. Normal calvarium. There is mild cerebral atrophy with widening of the extra-axial spaces and ventricular dilatation. There are areas of decreased attenuation within the white matter tracts of the supratentorial brain, consistent with microvascular disease changes. Normal basal ganglia and thalami. Normal brainstem. There is a 9.4 mm well-defined rounded lucency in the medial aspect of the left occipital lobe suggestive of old infarct. There is mild cerebellar atrophy. There is no intracranial hemorrhage. There are no findings of an acute ischemic infarction. Atherosclerotic calcification of the cavernous portions of the internal carotid arteries bilaterally. Normal visualized paranasal sinuses. CT/Brain/Head without Contrast IMPRESSION: Chronic involutional changes of the brain. 9.4 mm well-defined rounded lucency in the medial aspect of the left occipital lobe suggestive of an old infarct. Electronically Signed: Lucas Mcclelland MD at 12:53 EDT Reading Location ID and State: [facility] / [place] , Service support , CC: Dr. Ramandeep Alvarez MD; Dr. Daniel Wheeler, Executive Assistant: Signed Normal [facility] CBC W/Diff, Automatedon 08-3 Absolute Lymph 1.57 X10 3/uL Normal 0.83-4.51 [facility] Comment on above: Performed By: #### L 500.4050, L100.0100 #### [facility] [address] [place], [address] Absolute Neut 4.2 X10 3/uL Normal 2.0-7.7 [facility] Comment on above: Performed By: #### L 500.4050, L100.0100 #### [facility] [address] [place], [address] Basophils/100 WBC (Bld) 1.1 % High 0-1 [facility] Comment on above: Performed By: #### L 500.4050, L100.0100 #### [facility] [address] [place], [address] Eosinophils/100 WBC (Bld) 1.6 % Normal 0-5 [facility] Comment on above: Performed By: #### L 500.4050, L100.0100 #### [facility] [address] [place], [address] Erythrocyte distribution width (RBC) [Ratio] 15.9 % High 11.6-14.6 [facility] Comment on above: Performed By: #### L 500.4050, L100.0100 #### [facility] [address] [place], [address] Hematocrit (Bld) [Volume fraction] 36.1 % Low 37-47 [facility] Comment on above: Performed By: #### L 500.4050, L100.0100 #### [facility] [address] [place], [address] Hemoglobin (Bld) [Mass/Vol] 11.2 g/dL Low 12.0-15.0 [facility] Comment on above: Performed By: #### L 500.4050, L100.0100 #### [facility] [address] [place], [address] IG% 0.500 Normal 0.0-0.9 [facility] Comment on above: Result Comment: IG% - Immature Granulocytes (promyelocytes, myelocytes and metamyelocytes) > 1% indicates that a LEFT SHIFT is Present. Performed By: #### L 500.4050, L100.0100 #### [facility] [address] [place], [address] Lymphocytes/100 WBC (Bld) 24.6 % Normal 19-41 [facility] Comment on above: Performed By: #### L 500.4050, L100.0100 #### [facility] [address] [place], [address] MCH (RBC) [Entitic mass] 26.1 pg Low 27.0-32.0 [facility] Comment on above: Performed By: #### L 500.4050, L100.0100 #### [facility] [address] [place], [address] MCHC (RBC) [Mass/Vol] 31.0 g/dL Low 32-36 [facility] Comment on above: Performed By: #### L 500.4050, L100.0100 #### [facility] [address] [place], [address] MCV (RBC) [Entitic vol] 84.1 fL Normal 81-99 [facility] Comment on above: Performed By: #### L 500.4050, L100.0100 #### [facility] [address] [place], [address] Monocytes/100 WBC (Bld) 6.3 % Normal 0-10 [facility] Comment on above: Performed By: #### L 500.4050, L100.0100 #### [facility] [address] [place], [address] Neutrophils/100 WBC (Bld) 65.9 % Normal 47-70 [facility] Comment on above: Performed By: #### L 500.4050, L100.0100 #### [facility] [address] [place], [address] Nucleated RBC (Bld) [#/Vol] 0 10*3/uL Normal 0-5 [facility] Comment on above: Performed By: #### L 500.4050, L100.0100 #### [facility] [address] [place], [address] Platelet mean volume (Bld) [Entitic vol] 9.1 fL Normal 6.2-12.0 [facility] Comment on above: Performed By: #### L 500.4050, L100.0100 #### [facility] [address] [place], [address] Platelets (Bld) [#/Vol] 336 10*3/uL Normal 150-450 [facility] Comment on above: Performed By: #### L 500.4050, L100.0100 #### [facility] [address] [place], [address] RBC (Bld) [#/Vol] 4.29 10*6/uL Normal 4.2-5.4 [facility] Comment on above: Performed By: #### L 500.4050, L100.0100 #### [facility] [address] [place], [address] RDW SD 49.0 fl High 35.1-43.9 [facility] Comment on above: Performed By: #### L 500.4050, L100.0100 #### [facility] [address] [place], [address] WBC (Bld) [#/Vol] 6.4 10*3/uL Normal 4.4-11.0 [facility] Comment on above: Performed By: #### L 500.4050, L100.0100 #### [facility] [address] [place], [address] Comprehensive Metabolic [facility] 11-24-2021 Albumin [Mass/Vol] 3.4 g/dL Normal 3.2-5.0 [facility] Comment on above: Performed By: #### L 500.4050, L100.0100 #### [facility] [address] [place], [address] Albumin/Globulin [Mass ratio] 0.8 {ratio} Low 0.9-2.4 [facility] Comment on above: Performed By: #### L 500.4050, L100.0100 #### [facility] [address] [place], [address] ALK P 86 U/L Normal 45-117 [facility] Comment on above: Performed By: #### L 500.4050, L100.0100 #### [facility] [address] [place], [address] ALT [Catalytic activity/Vol] 18 U/L Normal 13-56 [facility] Comment on above: Performed By: #### L 500.4050, L100.0100 #### [facility] [address] [place], [address] AST [Catalytic activity/Vol] 17 U/L Normal 15-37 [facility] Comment on above: Performed By: #### L 500.4050, L100.0100 #### [facility] [address] [place], [address] Bilirubin [Mass/Vol] 0.30 mg/dL Normal 0.20-1.00 [facility] Comment on above: Result Comment: For patients on eltrombopag therapy, use of Dimension [place] TBIL is not recommended. Performed By: #### L 500.4050, L100.0100 #### [facility] [address] [place], [address] BUN/CRE 15.9 RATIO Normal 10-20 [facility] Comment on above: Performed By: #### L 500.4050, L100.0100 #### [facility] [address] [place], [address] CA,Total 9.0 mg/dL Normal 8.5-10.1 [facility] Comment on above: Performed By: #### L 500.4050, L100.0100 #### [facility] [address] [place], [address] Chloride [Moles/Vol] 104 mmol/L Normal 98-107 [facility] Comment on above: Performed By: #### L 500.4050, L100.0100 #### [facility] [address] [place], [address] CO2 [Moles/Vol] 30.0 mmol/L Normal 21.0-32.0 [facility] Comment on above: Performed By: #### L 500.4050, L100.0100 #### [facility] [address] [place], [address] Creatinine [Mass/Vol] 0.82 mg/dL Normal 0.55-1.02 [facility] Comment on above: Result Comment: The validity of the calculated GFR GFRAA in patients over 70 years has not been determined. Clinical correlation is essential. Performed By: #### L 500.4050, L100.0100 #### [facility] [address] [place], [address] ECRCL 40.39 ml/min Normal [facility] Comment on above: Performed By: #### L 500.4050, L100.0100 #### [facility] [address] [place], [address] EST GFR - AA 86 mL/min Normal >60 [facility] Comment on above: Result Comment: Afri can Haitian GFR Calc Performed By: #### L 500.4050, L100.0100 #### [facility] [address] [place], [address] GAP 4 Low 5-15 [facility] Comment on above: Performed By: #### L 500.4050, L100.0100 #### [facility] [address] [place], [address] GFR/1.73 sq M.predicted among non-blacks MDRD (S/P/Bld) [Vol rate/Area] 71 mL/min/{1.73_m2} Normal >60 [facility] Comment on above: Result Comment: Non- GFR Calc Performed By: #### L 500.4050, L100.0100 #### [facility] [address] [place], [address] Globulin (S) [Mass/Vol] 4.1 g/dL Normal 2.2-4.2 [facility] Comment on above: Performed By: #### L 500.4050, L100.0100 #### [facility] [address] [place], [address] Glucose [Mass/Vol] 95 mg/dL Normal 74-106 [facility] Comment on above: Performed By: #### L 500.4050, L100.0100 #### [facility] [address] [place], [address] Potassium [Moles/Vol] 4.1 mmol/L Normal 3.5-5.1 [facility] Comment on above: Performed By: #### L 500.4050, L100.0100 #### [facility] [address] [place], [address] Sodium [Moles/Vol] 138 mmol/L Normal 136-145 [facility] Comment on above: Performed By: #### L 500.4050, L100.0100 #### [facility] [address] [place], [address] T PROT 7.5 g/dL Normal 6.4-8.2 [facility] Comment on above: Performed By: #### L 500.4050, L100.0100 #### [facility] [address] [place], [address] Urea nitrogen [Mass/Vol] 13 mg/dL Normal 7-18 [facility] Comment on above: Performed By: #### L 500.4050, L100.0100 #### [facility] [address] [place], [address] Emergency Department Summary on 11-24-2021 Emergency Department Summary [facility] Medical Records Department [address] [place] [address] Emergency Department Summary 11/24/21 MR#: [id number] Acct: [id number] Name: ALBERTO ORDRIGUEZ Rep #: [id number] : 1935 [id number] From: Daniel Wheeler DO PCP: Dr. Ramandeep Alvarez MD Status:DEP ER Location: ED HPI History of Present Illness Chief Complaint: Headache Informant: patient Onset/Context/Timing Onset: Today Context: Gradual Timing: Continuous Quality -Headache: Positive for Dull Location: Top of head, and occiput Worsened by: Nothing Relieved by: Aleve (slightly) Associated Symptoms/Injury Associated Symptoms: Positive for Blurred Vision; Negative for Fever, Nausea, Vomiting, Sore Throat, Sinus Pressure, Numbness, Tingling, Preceding Aura, Photophobia or Visual Loss Narrative Narrative: Patient presents with headache that began today. Patient states she woke up in the middle the night with a headache. Patient states she checked her blood pressure at home and it was elevated. Patient states it was 171/96 initially. Patient states that she checked it later and it was 180/111. Patient describes her pain as dull. Patient states it is over the top of her head and into the occiput. Patient states it radiates into her neck. Patient states she took Aleve earlier this morning and thinks it might of helped. Patient does admit to some blurred vision. Patient denies any nausea or vomiting. Patient denies any chest pain or shortness of breath. Patient denies any photophobia. [facility] Medical History (Updated 11/24/21 @ 13:[address] Daniel Wheeler DO) History of peripheral edema Home Medications amlodipine 2.5 mg tablet (Norvasc) 2.5 mg PO DAILY #10 tabs 11/24/21 [Rx Last Taken Unknown] estradiol 1 mg tablet 0.5 mg PO DAILY 11/24/21 [History Last Taken Unknown] furosemide 20 mg tablet 20 mg PO QODAY 11/24/21 [History Last Taken Unknown] gabapentin 100 mg capsule 100 mg PO QHS 11/24/21 [History Last Taken Unknown] nortriptyline 50 mg capsule 50 mg PO QHS 11/24/21 [History Last Taken Unknown] pravastatin 40 mg tablet 40 mg PO DAILY 11/24/21 [History Last Taken Unknown] Allergy/AdvReac Type Severity Reaction Status Date / Time No Known Allergies Allergy Verified 11/24/21 11:35 Surgical History Hx of appendectomy Hx of bilateral salpingo-oophorectomy Hx of hysterectomy Social History Smoking Status: Never smoker ROS ROS ED Constitutional Constitutional ED: Denies chills or fever(s) Eyes Eyes: Reports blurry vision; Denies diplopia ENT ENT ED: Denies rhinorrhea or sore throat Cardiovascular Cardiovascular: Denies chest pain or palpitations Respiratory/Chest Respiratory/Chest: Denies cough or dyspnea Gastrointestinal Gastrointestinal: Denies nausea or vomiting Genitourinary Genitourinary ED: Denies dysuria or hematuria Musculoskeletal Musculoskeletal: Reports neck pain; Denies back pain Integumentary Denies abscess or rash Neurologic Neurologic: Reports headache(s); Denies weakness Allergic/Immunologic Allergic/Immunologic ED: Denies mouth swelling or urticaria EXAM Physical Exam Const Vital Signs: 11/24/21 11:33 11/24/21 11:43 11/24/21 12:31 Temperature 98.4 F Temperature Source Temporal Pulse Rate 81 86 71 Respiratory Rate 16 24 H Blood Pressure 140/91 H 175/93 H 154/76 H Blood Pressure Mean 107 120 102 Pulse Ox 100 Oxygen Delivery Method Room Air 11/24/21 13:23 Temperature Temperature Source Pulse Rate 71 Respiratory Rate Blood Pressure 158/78 H Blood Pressure Mean 104 Pulse Ox Oxygen Delivery Method Positive well nourished and well developed General Appearance ED: well developed and NAD HEENT Reports moist mucous membranes Neck supple and no JVD Resp normal respiratory effort and clear to auscultation bilaterally Cardio regular rate, regular rhythm and no murmurs GI normal to inspection, nondistended, normoactive bowel sounds and non-tender Palpation: soft Extremity normal to inspection General Extremety ED: Negative for edema or tenderness General Extremity: Negative for edema Neuro oriented x3, CN's II-XII intact bilaterally and no sensory deficits noted Sensorium / Orientation: alert Motor Exam: strength 5/5 throughout Psych mental status grossly normal Skin no rashes or lesions noted MDM MDM MDM Narrative Medical decision making narrative: CT scan of the brain was obtained. There is no acute intracranial abnormality. There are chronic involutional changes noted. 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 This was interpreted by the radiologist and reviewed by myself. CBC shows a mild anemia with a hemoglobin of 11.2 and hemat (more content not included)... Normal [facility] CARDIAC PERF STRESS/EXERC ISEon 07-29-2021 [place] CARDIAC PERF STRESS/EXERCISE * * *Final Report* * * DATE OF EXAM: Jul 29 2021 11:36AM BELKIS 0004 - MT CARDIAC PERF STRESS/EXERCISE / PROCEDURE REASON: Z13.6-Encounter for screening for cardiovascular disorders * * * * Physician Interpretation * * * * Stress American History Teacher Report: [facility] Date of service: 07/29/2021 9:44:26 AM Supervising physician: Hugh Bruno DO PATIENT: Name: MRS. ALBERTO RODRIGUEZ Age: 85 years Gender: F The supervising physician was in the department and immediately available. Final -- PATIENT: Name: MRS. ALBERTO RODRIGUEZ Age: 85 years Gender: F CONCLUSIONS: 1. SPECT Perfusion Study: Normal. 2. There is no scintigraphic evidence for inducible ischemia. 3. No evidence of scarred myocardium. 4. Left ventricle is normal in size. The left ventricle systolic function is normal. 5. This is a low risk scan. Gated Stress FBP LVEF % 73 Prior Study Comparison No prior nuclear cardiology exam available for comparison. Nuclear Med Report:1-Day [id number] Exercise Stress Gated SPECT: Myocardial perfusion imaging was performed at rest 30 to 60 minutes following the IV injection of Tc-99m tetrofosmin. One minute prior to peak exercise, the patient was injected IV with Tc-99m tetrofosmin. Gated post stress tomographic imaging was performed 10 to 20 minutes later. See administered doses below. [facility] Date of service: 07/29/2021 9:44:26 AM Ordering Physician: RAMANDEEP ALVAREZ. Requesting Physician: Indication: CAD eval, high CHD risk, Asx for ischemia Interpreting physician: Ronnie Cerna MD Height: 154.94 cm BSA: 1.66 m? Weight: 64.41 kg BMI: 26.8 kg/m? Imaging Protocol Limitation Reason G.I. uptake. Exam Type: Rest Stress Radiopharm: Tc-99m Tetrofosmin Tc-99m Tetrofosmin Dosage(mCi): 13.2 31 Atten Correction: not performed not performed Stress Agent: Treadmill Resting Blood Press: 150/78 mmHg Image Quality The overall study imaging quality was deemed to be good. The following technical issues were noted: G.I. uptake. FINDINGS: Left Ventricle Wall Motion: Stress IR:3D - All segments are normal. Rest IR:3D - Gated Stress FBP - Reversibility - Stress IR:3D Stress IR:3D Gated Stress FBP LVEF: 73 % ED Volume: 55 ml ES Volume: 15 ml TID: 0.95 Perfusion Findings Stress IR:3D - Summed Score=0 All segments demonstrate normal perfusion. Rest IR:3D - Summed Score=0 All segments demonstrate normal perfusion. Stress IR:3D Rest IR:3D Summed Score=0 Summed Score=0 LEFT VENTRICLE The left ventricle is normal in size. Left ventricular systolic function is normal. Right Ventricle The right ventricle is unseen or not interrogated. Stress Test Findings: There is no scintigraphic evidence for inducible ischemia. There is no evidence of scarring. Final -- Stress ECG Report: [facility] Date of service: 07/29/2021 9:44:26 AM Ordering physician: RAMANDEEP ALVAREZ lighting specialist: Jennifer Yeager Associate Professor Of Kinesiology: Melisa Means Interpreting physician: Hugh Bruno DO Patient name: MRS. ALBERTO RODRIGUEZ Age: 85 years Gender: F Height: 154.94 cm BSA: 1.66 m? Weight: 64.41 kg BMI: 26.8 kg/m? Indication: Encounter for screening for cardiovascular disorders Stress ECG Conclusion: Conclusion: Normal with exception due to low heart rate recovery Stress ECG Summary: The patient's resting heart rate was 71 bpm and blood pressure was 150/78 mmHg. The patient exercised according to the Eliot protocol. The estimated end-exercise MET level achieved using the FRIEND equation was 5.1, which is within the 25th to 50th percentile for age and sex. The estimated end-exercise MET level achieved using the previous ACSM equation was 5.8. The test was terminated due to end of protocol and the total exercise time was 4 minutes and 30 seconds. Other symptoms during the test included SOB. The maximum heart rate was 139 bpm, which is 102% of the predicted heart rate for age. This is an adequate heart rate response. Peak blood pressure was 168/76 mmHg. The double product achieved was [id number]. Medications: Last Used PAMELOR PRAVACHOL LASIX POTASSIUM ASPIRIN CALCIUM Resting ECG: Normal Sinus Rhythm Symptoms at rest: No symptoms Exercise Protocol: Eliot Stress Exercise Table: +-----+ +----- ---+ +---+---+- --+----+----+ Stage Speed (MPH) Grade(%) Time (min) HR SYS EVA RPE METS +-----+ +----- ---+ +---+---+- --+----+----+ 1 1.7 10.0 3.0 123 154 76 13.0 4.2 +-----+ +----- --- (more content not included)... Normal [facility] 07-28-2021 CNPN Telephone (CDLBME) -------- ALBERTO RODRIGUEZ ([id number]) 1935 F Date Time Provider Department 07/28/21 MELISA MEANS CDLBME During your visit today, we recorded the following information about you: Melisa Means RN 07/28/2021 2:37 PM Signed Left message regarding reminder for stress test tomorrow and given instructions. Allergies As of Date: 07/28/2021 Noted Allergy Reaction VICODIN (HYDROCODONE-ACETAMINOPH E*04/27/2009 5 - Intolerance Date Reviewed: 07/09/2021 Reviewed by: Elizabeth Lieberman, RT(R) - Fully Assessed Reason for Visit: Reminder Call [[id number]] Prescriptions as of 07/28/2021 - estradiol (ESTRACE) 1 mg tablet Take 1 tablet by mouth once daily. Begin with half a pill, if symptoms dont get better take 1 pill - nortriptyline (PAMELOR) 50 mg capsule TAKE ONE CAPSULE BY MOUTH EVERY DAY AT BEDTIME - pravastatin (PRAVACHOL) 40 mg tablet Take 1 tablet by mouth daily at bedtime. - furosemide (LASIX) 20 mg tablet Take 1 tablet by mouth every other day. - potassium chloride (K-TAB) 10 mEq tablet Take 1 tablet by mouth daily with breakfast. On days she takes lasix - gabapentin (NEURONTIN) 100 mg capsule Take 1 capsule by mouth daily at bedtime. - >Zippered Compression Knee High 30-40 mm custom CUSTOM MEASURE FOR KNEE HIGH HO COMPRESSION STOCKINGS, 30-40 MM, WITH ZIPPERS PLEASE. IF UNABLE, PLEASE REFER TO [facility] AT [facility]. DX: EDEMA - multivitamin tablet Take 1 tablet by mouth once daily. - Aspirin 81 mg Tab Take 81 mg by mouth once daily. - Cholecalciferol, Vitamin D3, (VITAMIN D-3) 2,000 unit Tab Take by mouth once daily. 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] 05/02/2005 ESOPHAGEAL REFLUX [K21.9] 05/02/2005 PAIN ABDOMEN( Right Upper Quadrant) [R10.11] 07/16/2007 GASTRITIS ANTRAL( W/O Hemorrhage) [K29.60] 07/27/2007 ACUTE GASTRITIS W/O HEMORRHAGE [K29.00] 07/27/2007 CHOLECYSTITIS SEE ALSO GALLBLADDER CHRONIC [K*08/13/2007 Dysuria [R30.0] 08/16/2007 06/27/2014 MULTINODULAR GOITER (NONTOXIC) [E04.2] 10/30/2008 Hot flash, menopausal [N95.1] 06/21/2011 06/27/2014 PHN (postherpetic neuralgia) [B02.29] 02/06/2012 Postherpetic neuralgia [B02.29] 06/14/2012 06/27/2014 Pinched nerve in neck [G58.9] 01/31/2018 Hot flashes [R23.2] 09/21/2018 Encounter Status:Closed by MELISA MEANS on 07/28/21 [facility] CT CHEST W IVCON PEon 2021 [facility] VALERI SCREENING W TOMOon 07-01 [facility] Vital Signs Date Time Vital Sign Value Performing Clinician Facility 08-22-2024 13:23-0400 Body temperature 98.01 [degF] Treatment Wstr Work Phone: [facility] 08-22-2024 13:23-0400 Diastolic blood pressure 69 mm[Hg] Treatment Wstr Work Phone: [facility] 08-22-2024 13:23-0400 Heart rate 94 /min Treatment Wstr Work Phone: [facility] 08-22-2024 13:23-0400 SaO2% (BldA) [Mass fraction] 97 % Treatment Wstr Work Phone: [facility] 08-22-2024 13:23-0400 Systolic blood pressure 152 mm[Hg] Treatment Wstr Work Phone: [facility] 07-04-2024 10:06-0400 Body mass index (BMI) [Ratio] 26.65 kg/m2 Stockton Carrero BELLMAN.BASKET SORTER Work Phone: [facility] 07-04-2024 10:06-0400 Body temperature 98.49 [degF] Susan Carrero BELLMAN.[employer]TER Work Phone: [facility] 07-04-2024 10:06-0400 Body weight 61.9 kg Susan Carrero [employer]LLMAN.[employer] Work Phone: [facility] 07-04-2024 10:06-0400 Diastolic blood pressure 65 mm[Hg] Susan Carrero BELLMAN.[employer] S[employer]TER Work Phone: [facility] 07-04-2024 10:06-0400 Heart rate 92 /min Susan Carrero BELLMAN.[employer] S[employer]TER Work Phone: [facility] 07-04-2024 10:06-0400 SaO2% (BldA) [Mass fraction] 98 % Susan Carrero BELLMAN.B[employer] S[employer]TER Work Phone: [facility] 07-04-2024 10:06-0400 Systolic blood pressure 113 mm[Hg] Susan Carrero BELLMAN.BASK[employer] SORTER Work Phone: [facility] 01-09-2024 10:02-0400 Body height 152.4 cm Ramandeep Alvarez MD Work Phone: [facility] 01-09-2024 10:02-0400 Body mass index (BMI) [Ratio] 25.4 kg/m2 Ramandeep Alvarez MD Work Phone: [facility] 01-09-2024 10:02-0400 Body weight 59 kg Ramandeep Alvarez MD Work Phone: [facility] 01-09-2024 10:02-0400 Diastolic blood pressure 72 mm[Hg] Ramandeep Alvarez MD Work Phone: [facility] 01-09-2024 10:02-0400 Heart rate 89 /min Ramandeep Alvarez MD Work Phone: [facility] 01-09-2024 10:02-0400 Respiratory rate 16 /min Ramandeep Alvarez MD Work Phone: [facility] 01-09-2024 10:02-0400 Systolic blood pressure 122 mm[Hg] Ramandeep Alvarez MD Work Phone: [facility] 01-02-2024 09:19-0400 Body mass index (BMI) [Ratio] 25.58 kg/m2 Laney Jovani DO Work Phone: [facility] 01-02-2024 09:19-0400 Body temperature 98.2 [degF] Laney Jovani DO Work Phone: [facility] 01-02-2024 09:19-0400 Body weight 59.42 kg Laney Masci DO Work Phone: [facility] 01-02-2024 09:19-0400 Diastolic blood pressure 67 mm[Hg] Laney Masci DO Work Phone: [facility] 01-02-2024 09:19-0400 Heart rate 82 /min Laney Masci DO Work Phone: [facility] 01-02-2024 09:19-0400 SaO2% (BldA) [Mass fraction] 99 % Laney Masci DO Work Phone: [facility] 01-02-2024 09:19-0400 Systolic blood pressure 106 mm[Hg] Laney Masci DO Work Phone: [facility] 12-18-2023 12:40-0400 Body temperature 98.1 [degF] Loy Kwon MD Work Phone: [facility] 12-18-2023 12:40-0400 Diastolic blood pressure 68 mm[Hg] Loy Kwon MD Work Phone: [facility] 12-18-2023 12:40-0400 Heart rate 85 /min Loy Kwon MD Work Phone: [facility] 12-18-2023 12:40-0400 Respiratory rate 18 /min Loy Kwon MD Work Phone: [facility] 12-18-2023 12:40-0400 SaO2% (BldA) [Mass fraction] 94 % Loy Kwon MD Work Phone: [facility] 12-18-2023 12:40-0400 Systolic blood pressure 137 mm[Hg] Loy Kwon MD Work Phone: [facility] 12-18-2023 07:21-0400 Body mass index (BMI) [Ratio] 25.83 kg/m2 Loy Kwon MD Work Phone: [facility] 12-18-2023 07:21-0400 Body weight 60 kg Loy Kwon MD Work Phone: [facility] 12-11-2023 09:15-0400 Body mass index (BMI) [Ratio] 26.17 kg/m2 Ramandeep Alvarez MD Work Phone: [facility] 12-11-2023 09:15-0400 Body weight 60.78 kg Ramandeep Alvarez MD Work Phone: [facility] 12-11-2023 09:15-0400 Diastolic blood pressure 70 mm[Hg] Ramandeep Alvarez MD Work Phone: [facility] 12-11-2023 09:15-0400 Heart rate 80 /min Ramandeep Alvarez MD Work Phone: [facility] 12-11-2023 09:15-0400 Respiratory rate 16 /min aRmandeep Alvarez MD Work Phone: [facility] 12-11-2023 09:15-0400 Systolic blood pressure 110 mm[Hg] Ramandeep Alvarez MD Work Phone: [facility] 12-08-2023 13:23-0400 Body height 152.4 cm Pacc 1 Work Phone: [facility] 12-08-2023 13:23-0400 Body mass index (BMI) [Ratio] 26.37 kg/m2 Pacc 1 Work Phone: [facility] 12-08-2023 13:23-0400 Body temperature 97.81 [degF] Pacc 1 Work Phone: [facility] 12-08-2023 13:23-0400 Body weight 61.24 kg Pacc 1 Work Phone: [facility] 12-08-2023 13:23-0400 Diastolic blood pressure 78 mm[Hg] Pacc 1 Work Phone: [facility] 12-08-2023 13:23-0400 Heart rate 89 /min Pacc 1 Work Phone: [facility] 12-08-2023 13:23-0400 Respiratory rate 14 /min Pacc 1 Work Phone: [facility] 12-08-2023 13:23-0400 SaO2% (BldA) [Mass fraction] 96 % Pacc 1 Work Phone: [facility] 12-08-2023 13:23-0400 Systolic blood pressure 132 mm[Hg] Pacc 1 Work Phone: [facility] 11-08-2023 14:00-0400 Body mass index (BMI) [Ratio] 25.97 kg/m2 Laney Ignacio DO Work Phone: [facility] 11-08-2023 14:00-0400 Body weight 60.78 kg Laney Ignacio DO Work Phone: [facility] 11-08-2023 14:00-0400 Systolic blood pressure 104 mm[Hg] Laney Ignacio DO Work Phone: [facility] 11-08-2023 13:21-0400 Body height 153 cm Laney Ignacio DO Work Phone: [facility] Comment on above: Verified with Darlyn Glynn RN 11-08-2023 13:21-0400 Body mass index (BMI) [Ratio] 26.05 kg/m2 Jillian Delgado MD Work Phone: [facility] 11-08-2023 13:21-0400 Body temperature 98.29 [degF] Laney Ignacio DO Work Phone: [facility] 11-08-2023 13:21-0400 Body weight 61.01 kg Jillian Delgado MD Work Phone: [facility] 11-08-2023 13:21-0400 Diastolic blood pressure 63 mm[Hg] Laney Ignacio DO Work Phone: [facility] 11-08-2023 13:21-0400 Heart rate 85 /min Laney Ignacio DO Work Phone: [facility] 11-08-2023 13:21-0400 SaO2% (BldA) [Mass fraction] 94 % Laney Ignacio DO Work Phone: [facility] 11-08-2023 13:21-0400 Systolic blood pressure 109 mm[Hg] Jillian Delgado MD Work Phone: [facility] 09-15-2023 12:27-0400 Body mass index (BMI) [Ratio] 25.32 kg/m2 Angélica Pulido BELLMAN.FUNCTIONAL ARCHITECT Work Phone: [facility] 09-15-2023 12:27-0400 Body weight 60.78 kg Angélica Pulido BELLMAN.FUNCTIONAL ARCHITECT Work Phone: [facility] 09-15-2023 12:27-0400 Diastolic blood pressure 64 mm[Hg] Angélica Pulido BELLMAN.FUNCTIONAL ARCHITECT Work Phone: [facility] 09-15-2023 12:27-0400 Heart rate 80 /min Angélica Pulido BELLMAN.FUNCTIONAL ARCHITECT Work Phone: [facility] 09-15-2023 12:27-0400 Respiratory rate 16 /min Angélica Pulido BELLMAN.FUNCTIONAL ARCHITECT Work Phone: [facility] 09-15-2023 12:27-0400 Systolic blood pressure 105 mm[Hg] Angélica Pulido BELLMAN.FUNCTIONAL ARCHITECT Work Phone: [facility] 08-29-2023 14:55-0400 Body height 154.9 cm Riley Gregory MD Work Phone: [facility] 08-29-2023 14:55-0400 Body mass index (BMI) [Ratio] 26.26 kg/m2 Riley Gregory MD Work Phone: [facility] 08-29-2023 14:55-0400 Body weight 63.05 kg Riley Gregory MD Work Phone: [facility] 08-29-2023 14:55-0400 Diastolic blood pressure 64 mm[Hg] Riley Gregory MD Work Phone: [facility] 08-29-2023 14:55-0400 Systolic blood pressure 112 mm[Hg] Riley Gregory MD Work Phone: [facility] 07-11-2023 10:32-0400 Body weight 63.05 kg Angélica Pulido BELLMAN.FUNCTIONAL ARCHITECT Work Phone: [facility] 07-11-2023 10:32-0400 Diastolic blood pressure 58 mm[Hg] Angélica Pulido BELLMAN.FUNCTIONAL ARCHITECT Work Phone: [facility] 07-11-2023 10:32-0400 Heart rate 77 /min Angélica Pulido BELLMAN.FUNCTIONAL ARCHITECT Work Phone: [facility] 07-11-2023 10:32-0400 Respiratory rate 16 /min Angélica Pulido BELLMAN.FUNCTIONAL ARCHITECT Work Phone: [facility] 07-11-2023 10:32-0400 Systolic blood pressure 108 mm[Hg] Angélica Pulido BELLMAN.FUNCTIONAL ARCHITECT Work Phone: [facility] 01-05-2023 10:44-0400 Body weight 64.86 kg Angélica Pulido BELLMAN.FUNCTIONAL ARCHITECT Work Phone: [facility] 01-05-2023 10:44-0400 Diastolic blood pressure 61 mm[Hg] Angélica Pulido BELLMAN.FUNCTIONAL ARCHITECT Work Phone: [facility] 01-05-2023 10:44-0400 Heart rate 76 /min Angélica Pulido BELLMAN.FUNCTIONAL ARCHITECT Work Phone: [facility] 01-05-2023 10:44-0400 Respiratory rate 16 /min Angélica Pulido BELLMAN.FUNCTIONAL ARCHITECT Work Phone: [facility] 01-05-2023 10:44-0400 Systolic blood pressure 123 mm[Hg] Angélica Pulido BELLMAN.FUNCTIONAL ARCHITECT Work Phone: [facility] 09-30-2022 12:34-0400 Body weight 63.5 kg Angélica Pulido BELLMAN.FUNCTIONAL ARCHITECT Work Phone: [facility] 09-30-2022 12:34-0400 Diastolic blood pressure 62 mm[Hg] Angélica Pulido BELLMAN.FUNCTIONAL ARCHITECT Work Phone: [facility] 09-30-2022 12:34-0400 Heart rate 76 /min Angélica Pulido BELLMAN.FUNCTIONAL ARCHITECT Work Phone: [facility] 09-30-2022 12:34-0400 Respiratory rate 16 /min Angélica Pulido BELLMAN.FUNCTIONAL ARCHITECT Work Phone: [facility] 09-30-2022 12:34-0400 Systolic blood pressure 112 mm[Hg] Angélica Pulido BELLMAN.FUNCTIONAL ARCHITECT Work Phone: [facility] 07-19-2022 10:00-0400 Diastolic blood pressure 64 mm[Hg] Nick Golias PT Work Phone: [facility] 07-19-2022 10:00-0400 Systolic blood pressure 108 mm[Hg] Nick Golias PT Work Phone: [facility] 07-08-2022 14:26-0400 Body temperature 98.49 [degF] Breanna Older BE[employer]MAN[employer] S[employer]TER Work Phone: [facility] 07-08-2022 14:26-0400 Body weight 63.5 kg Breanna Older BELLMAN.B[employer] S[employer]TER Work Phone: [facility] 07-08-2022 14:26-0400 Diastolic blood pressure 68 mm[Hg] Breanna Older BELLMAN.BASK[employer] SORTER Work Phone: [facility] 07-08-2022 14:26-0400 Heart rate 97 /min Breanna Older BELLMAN.B[employer] SORTER Work Phone: [facility] 07-08-2022 14:26-0400 Respiratory rate 16 /min Breanna Older BELLMAN.BASK[employer] SORTER Work Phone: [facility] 07-08-2022 14:26-0400 SaO2% (BldA) [Mass fraction] 98 % Breanna Older BELLMAN.BASKET SORTER Work Phone: [facility] 07-08-2022 14:26-0400 Systolic blood pressure 120 mm[Hg] Breanna Older BELLMAN.BASKET SORTER Work Phone: [facility] 04-14-2022 09:44-0500 Body temperature 97.7 [degF] Ramandeep Alvarez MD Work Phone: [facility] 04-14-2022 09:44-0500 Body weight 62.14 kg Ramandeep Alvarez MD Work Phone: [facility] 04-14-2022 09:44-0500 Diastolic blood pressure 72 mm[Hg] Ramandeep Alvarez MD Work Phone: [facility] 04-14-2022 09:44-0500 Heart rate 88 /min Ramandeep Alvarez MD Work Phone: [facility] 04-14-2022 09:44-0500 Respiratory rate 16 /min Ramandeep Alvarez MD Work Phone: [facility] 04-14-2022 09:44-0500 SaO2% (BldA) [Mass fraction] 98 % Ramandeep Alvarez MD Work Phone: [facility] 04-14-2022 09:44-0500 Systolic blood pressure 118 mm[Hg] Ramandeep Alvarez MD Work Phone: [facility] 06-18-2021 10:18-0400 Body height 154.9 cm Ramandeep Alvarez MD Work Phone: [facility] 06-18-2021 10:18-0400 Body temperature 97.59 [degF] Ramandeep Alvarez MD Work Phone: [facility] 06-18-2021 10:18-0400 Body weight 64.41 kg Ramandeep Alvarez MD Work Phone: [facility] 06-18-2021 10:18-0400 Diastolic blood pressure 56 mm[Hg] Ramandeep Alvarez MD Work Phone: [facility] 06-18-2021 10:18-0400 Heart rate 83 /min Ramandeep Alvarez MD Work Phone: [facility] 06-18-2021 10:18-0400 Respiratory rate 12 /min Ramandeep Alvarez MD Work Phone: [facility] 06-18-2021 10:18-0400 SaO2% (BldA) [Mass fraction] 99 % Ramandeep Alvarez MD Work Phone: [facility] 06-18-2021 10:18-0400 Systolic blood pressure 114 mm[Hg] Ramandeep Alvarez MD Work Phone: [facility] Encounters Encounter Date Encounter Type Care Provider Facility Start: 08-23-2024 End: 08-26-2024 Refill Ramandeep Alvarez MD Work Phone: [facility] [place] Comment on above: Refill Request Start: 08-22-2024 End: 08-22-2024 ambulatory Treatment Rm 14 [facility] Work Phone: Hematology/Oncology Comment on above: Malignant neoplasm o f right breast in female, estrogen receptor positive, unspecified site of breast (HCC) (Primary Dx) Start: 08-22-2024 End: 08-22-2024 ambulatory RAMANDEEP ALVAREZ Facility:[facility] Start: 08-21-2024 End: 08-21-2024 Telephone encounter Oksana ROBLERO Hematology/Oncology Comment on above: Social Work Services Start: 08-05-2024 End: 08-09-2024 Telephone encounter Laney Ignacio DO Work Phone: Hematology/Oncology Comment on above: Dental Clearance - C hemotherapy Start: 07-08-2024 End: 09-07-2024 Follow-up encounter Susan Carrero APRN.BASKET SORTER Work Phone: Hematology/Oncology Start: 07-04-2024 End: 07-04-2024 Subsequent hospital visit by physician Screen Mammo [facility] Mammogram Comment on above: Atypical lobular hyp erplasia (ALH) of left breast [N60.92] Start: 07-04-2024 End: 07-04-2024 ambulatory Susan Carrero APRN.BASKET SORTER Work Phone: Hematology/Oncology Comment on above: Malignant neoplasm o f upper-outer quadrant of right breast in female, estrogen receptor positive (HCC) (Primary Dx) Start: 07-04-2024 End: 07-04-2024 Patient encounter procedure Susan Carrero APRN.BASKET SORTER Work Phone: Hematology/Oncology Start: 06-25-2024 End: 06-28-2024 ambulatory Ramandeep Alvarez MD Work Phone: Internal Medicine [place] [phone] Start: 04-04-2024 End: 04-04-2024 Telephone encounter Kimberly Chavez PA-C Work Phone: [facility] Comment on above: Appointment Start: 04-04-2024 End: 04-04-2024 ambulatory RAMANDEEP ALVAREZ Facility:[facility] Start: 04-04-2024 End: 04-04-2024 Patient encounter procedure Loy Kwon MD Work Phone: [facility] Comment on above: Malignant neoplasm o f upper-outer quadrant of right breast in female, estrogen receptor positive (HCC) (Primary Dx) Start: 02-05-2024 End: 02-05-2024 Refill Ramandeep Alvarez MD Work Phone: Internal Medicine [place] Comment on above: Refill Request Start: 01-09-2024 End: 01-09-2024 ambulatory RAMANDEEP ALVAREZ Facility:[facility] Start: 01-09-2024 End: 01-09-2024 Office outpatient visit 15 minutes Ramandeep Alvarez MD Work Phone: [facility] Medicine [place] Comment on above: Medicare annual well ness visit, subsequent (Primary Dx); Malignant neoplasm of right breast in female, estrogen receptor positive, unspecified site of breast (HCC); Encounter for immunization; Atherosclerosis of aorta (HCC); Stage 3a chronic kidney disease (HCC); Essential hypertension; Nonrheumatic aortic valve stenosis; Diastolic dysfunction Start: 01-09-2024 End: 01-09-2024 Patient encounter procedure Ramandeep Alvarez MD Work Phone: [facility] Start: 01-02-2024 End: 01-02-[address] Ignacio DO Work Phone: Hematology/Oncology Comment on above: Malignant neoplasm o f upper-outer quadrant of right breast in female, estrogen receptor positive (HCC) (Primary Dx) Start: 01-02-2024 End: 01-02-2024 Patient encounter procedure Laney Ignacio DO Work Phone: Hematology/Oncology Start: 12-27-2023 End: 12-27-2023 ambulatory RAMANDEEP ALVAREZ Facility:[facility] Start: 12-27-2023 End: 12-27-2023 Patient encounter procedure Loy Kwon MD Work Phone: [facility] Comment on above: Atypical lobular hyp erplasia (ALH) of left breast (Primary Dx); Malignant neoplasm of upper-outer quadrant of right breast in female, estrogen receptor positive (HCC) Start: 12-19-2023 End: 12-19-2023 Telephone encounter Nuris Alegria RN [facility] Comment on above: Post Op Start: 12-18-2023 ambulatory RAMANDEEP GAN Facility[facility] [facility] Start: 12-18-2023 End: 12-18-2023 Subsequent hospital visit by physician Loy Kwon MD Work Phone: Ambulatory Surgery Comment on above: Malignant neoplasm o f upper-outer quadrant of right breast in female, estrogen receptor positive (HCC) [C50.411, Z17.0], Atypical lobular hyperplasia (ALH) of left breast [N60.92] Start: 12-15-2023 End: 12-15-2023 [facility] Facility:[facility] Start: 12-15-2023 Encounter for other preprocedural examination [facility] Start: 12-13-2023 End: 12-13-2023 Nursing evaluation of patient and report Nuris Alegria RN Breast Center Comment on above: Malignant neoplasm o f upper-outer quadrant of right breast in female, estrogen receptor positive (HCC) (Primary Dx); Encounter for education Start: 12-13-2023 End: 12-13-2023 [facility] Facility:[facility] Start: 12-13-2023 End: 12-13-2023 Subsequent hospital visit by physician Procedure Mammo [facility] Start: 12-11-2023 End: 12-11-2023 [facility] Facility:[facility] Start: 12-11-2023 End: 12-11-2023 Office outpatient visit 25 minutes Ramandeep Alvarez MD Work Phone: Internal Medicine [place] Comment on above: Poison armin dermatiti s (Primary Dx); Hot flashes; Essential hypertension Start: 12-08-2023 End: 12-08-2023 Admission to establishment Pacc [place] 1 Work Phone: Pre Anesthesia Start: 12-08-2023 End: 12-08-2023 [facility] Facility:[facility] Start: 12-08-2023 End: 12-08-2023 Anesthesia consultation Pacc [place] 1 Work Phone: Pre Anesthesia Comment on above: Pre-operative examin ation (Primary Dx); Malignant neoplasm of upper-outer quadrant of right breast in female, estrogen receptor positive (HCC); Essential hypertension; Pure hypercholesterolemia; Gastroesophageal reflux disease, unspecified whether esophagitis present; History of cerebral infarction; Murmur, cardiac; MULTINODULAR GOITER (NONTOXIC); Iron deficiency anemia, unspecified iron deficiency anemia type; Anxiety state; Osteopenia, unspecified location Start: 12-08-2023 End: 12-08-2023 Preprocedural examination done Pac [place] 1 Work Phone: [facility] Start: 11-28-2023 End: 12-01-2023 Telephone encounter Laney Ignacio DO Work Phone: Hematology/Oncology Comment on above: Appointment Start: 11-25-2023 End: 11-29-2023 Refill Ramandeep Alvarez MD Work Phone: [address] [place] [address] Comment on above: Refill Request Start: 11-23-2023 End: 11-27-2023 Telephone encounter Loy Kwon MD Work Phone: Breast [place] Comment on above: Results Schedule Surgery Breast Localization Start: 11-22-2023 End: 08-27-2024 Telephone encounter Loy Kwon MD Work Phone: Breast [place] Comment on above: mri biopsy result Results Start: 11-20-2023 ambulatory RAMANDEEP ALVAREZ Facility:[facility] Start: 11-20-2023 End: 11-20-2023 Subsequent hospital visit by physician Mri Main A10 (Large Bore/1.5t) Work Phone: MRI A10 Comment on above: Abnormal MRI, breast [R92.8] Start: 11-14-2023 End: 11-14-2023 ambulatory Ramandeep Alvarez MD Work Phone: [facility] Comment on above: Allied Health Visit (Medication Adherence Outreach ) Start: 11-08-2023 End: 11-08-2023 [facility] [place] Comment on above: Malignant neoplasm o f upper-outer quadrant of right breast in female, estrogen receptor positive (HCC) (Primary Dx); Anemia, unspecified type Start: 11-08-2023 End: 11-08-2023 Patient encounter procedure [facility] [place] Comment on above: Population Health Na vigation Outreach ([facility] [place] [facility]) Malignant neoplasm o f upper-outer quadrant of right breast in female, estrogen receptor positive (HCC) (Primary Dx) Start: 11-08-2023 Telephone encounter Loy garibay MD Work Phone: [facility] Comment on above: Results Start: 11-07-2023 Orders Only Mo Gray MD Work Phone: Mammography Comment on above: Abnormal MRI, breast (Primary Dx) Results; Appointment Start: 11-06-2023 ambulatory UNKNOWN PROVIDER Facili ty:[facility] Start: 11-06-2023 End: 11-06-2023 Subsequent hospital visit by physician Mri [facility] (I-Stat/1.5t) RADIO MRI [facility] Comment on above: Abnormal ultrasound of breast [R92.8] Start: 11-06-2023 End: 11-06-2023 ambulatory [facility] Facility:[facility] Start: 11-06-2023 End: 11-06-2023 Subsequent hospital visit by physician Procedure Mammo [facility] Comment on above: Abnormal ultrasound of breast [R92.8] Start: 11-02-2023 Telephone encounter Kimberly ramirez PA-C Work Phone: Breast Center Comment on above: Appointment Start: 10-27-2023 End: 10-27-2023 ambulatory [facility] Facility:[facility] Start: 10-27-2023 End: 10-27-2023 Subsequent hospital visit by physician Diagnostic Mammo [facility] Comment on above: Breast disorder [N64 .9] Start: 10-24-2023 Telephone encounter Loy garibay MD Work Phone: [facility] Comment on above: Return Call Request Start: 10-23-2023 ambulatory Chanel Pascual MD Work Phone: Mammography Comment on above: Breast Problem Start: 10-23-2023 Patient encounter procedure Ca Pascual MD Work Phone: Mammography Start: 10-23-2023 Telephone encounter Loy garibay MD Work Phone: Breast Center Comment on above: MRI Report Start: 10-21-2023 ambulatory LOY Perdomo ty:[facility] Start: 10-21-2023 End: 10-21-2023 Subsequent hospital visit by physician Mri [facility] (I-Stat/1.5t) RADIO MRI [facility] Comment on above: Malignant neoplasm o f upper-outer quadrant of right breast in female, estrogen receptor positive (HCC) [C50.411, Z17.0] Start: 10-19-2023 End: 10-19-2023 ambulatory [facility] Facility:[facility] Start: 10-19-2023 End: 10-19-2023 ambulatory [facility] Facility:[facility] Start: 10-19-2023 End: 10-19-2023 Patient encounter procedure Loy Kwon MD Work Phone: Breast Center Comment on above: Malignant neoplasm o f upper-outer quadrant of right breast in female, estrogen receptor positive (HCC) (Primary Dx); Pure hypercholesterolemia; Essential hypertension Start: 10-19-2023 End: 10-19-2023 Subsequent hospital visit by physician Clinic Imaging Mammo [facility] Work Phone: Mammography Comment on above: Malignant neoplasm o f upper-outer quadrant of right breast in female, estrogen receptor positive (HCC) [C50.411, Z17.0] Start: 10-12-2023 Telephone encounter Georgina Crooks RN Mammography Comment on above: Results; Appointment Tone Artist Apprentice - O brady (Dr Kwon) Start: 10-04-2023 End: 10-04-2023 ambulatory [facility] Facility:[facility] Start: 10-04-2023 End: 10-04-2023 Subsequent hospital visit by physician Procedure Mammo [facility] Comment on above: Abnormal mammogram [ R92.8] Start: 09-15-2023 End: 09-15-2023 [facility] Facility:[facility] Start: 09-15-2023 End: 09-15-2023 Office outpatient visit 15 minutes Angélica Pulido APRN.CNS Work Phone: Internal Medicine [place] Comment on above: Rash and nonspecific skin eruption (Primary Dx) Start: 09-05-2023 Telephone encounter Ramandeep galeas MD Work Phone: Internal Medicine [place] Comment on above: Results Start: 09-04-2023 ambulatory Ayo bardales MD Work Phone: Mammography Comment on above: Radio Imaging Study Comments Start: 09-04-2023 Patient encounter procedure Dion Joel MD Work Phone: Mammography Start: 08-29-2023 End: 08-29-2023 ambulatory RAMANDEEP ALVAREZ Facility:[facility] Start: 08-29-2023 End: 08-29-2023 Patient encounter procedure Riley Gregory MD Work Phone: General Surgery Comment on above: Abnormal finding on breast imaging (Primary Dx) Start: 08-29-2023 End: 01-30-2024 Telephone encounter Riley Gregory MD Work Phone: General Surgery Comment on above: Appointment Start: 08-22-2023 End: 08-22-2023 Subsequent hospital visit by physician Diagnostic Mammo [facility] Comment on above: Abnormal mammogram o f both breasts [R92.8] Start: 08-08-2023 Telephone encounter Angélica dickerson BELLMAN.FUNCTIONAL ARCHITECT Work Phone: Internal Medicine [place] Comment on above: Results Start: 08-04-2023 Telephone encounter Angélica dickerson BELLMAN.FUNCTIONAL ARCHITECT Work Phone: Internal Medicine [place] Comment on above: Results Start: 08-02-2023 Telephone encounter Levi starks MD Work Phone: Mammography Comment on above: Mammogram Result Goyo l Back (bilateral diag mamm and us cb per ym) Start: 07-31-2023 Telephone encounter Ramandeep galeas MD Work Phone: Internal Medicine [place] Comment on above: Results Start: 07-30-2023 Orders Only Angélica Pulido APRN.FUNCTIONAL ARCHITECT Work Phone: Internal Medicine [place] Comment on above: Abnormal mammogram o f both breasts (Primary Dx) Start: 07-28-2023 Documentation procedure Mammog radha Coordinator [facility] Department Start: 07-28-2023 Letter encounter Mammography Coordinator [facility] Start: 07-27-2023 End: 07-27-2023 Subsequent hospital visit by physician Bone Density [facility] Work Phone: Radiology Comment on above: Encounter for screen ing for osteoporosis [Z13.820] Encounter for screen ing mammogram for breast cancer [Z12.31] Start: 07-21-2023 Refill Ramandeep Pickard Work Phone: Internal Medicine [place] Comment on above: Refill Request Start: 07-11-2023 End: 07-11-2023 Office outpatient visit 25 minutes Angélica Pulido APRN.FUNCTIONAL ARCHITECT Work Phone: Internal Medicine [place] Comment on above: Iron deficiency anem ia, unspecified iron deficiency anemia type (Primary Dx); Pure hypercholesterolemia; Gastroesophageal reflux disease, unspecified whether esophagitis present; Essential hypertension; Encounter for screening for diabetes mellitus; Hot flashes; Insomnia, unspecified type; Encounter for screening for osteoporosis; Asymptomatic postmenopausal status Start: 02-07-2023 ambulatory Ramandeep Pickard Work Phone: [facility] Comment on above: Allied Health Visit (Medication Adherence Outreach/) Start: 01-06-2023 Telephone encounter Angélica dickerson APRN.FUNCTIONAL ARCHITECT Work Phone: Internal Medicine [place] Comment on above: Results Start: 01-05-2023 End: 01-05-2023 Office outpatient visit 25 minutes Angélica Pulido APRN.FUNCTIONAL ARCHITECT Work Phone: Internal Medicine [place] Comment on above: Essential hypertensi on (Primary Dx); Post herpetic neuralgia; Diastolic dysfunction; Pain of left hip joint; PHN (postherpetic neuralgia); Gastroesophageal reflux disease, unspecified whether esophagitis present; Encounter for screening mammogram for breast cancer Start: 09-30-2022 Refill Breanna MazariegosBASKET SORTER Work Phone: Internal Medicine [place] Comment on above: Refill Request Start: 09-30-2022 End: 09-30-2022 Office outpatient visit 25 minutes Angélica Pulido APRN.FUNCTIONAL ARCHITECT Work Phone: Internal Medicine [place] Comment on above: Feared condition not demonstrated (Primary Dx); History of shingles; Gastroesophageal reflux disease, unspecified whether esophagitis present; Pure hypercholesterolemia Start: 08-23-2022 Refill Ramandeep Pickard Work Phone: Internal Medicine [place] Comment on above: Refill Request Start: 08-02-2022 End: 08-02-2022 ambulatory Nick Cooper PT Work Phone: [facility] Comment on above: Pain of left hip tiffany nt (Primary Dx) Start: 07-27-2022 End: 07-28-2022 ambulatory Nick Golias PT Work Phone: [facility] Comment on above: Pain of left hip tiffany nt (Primary Dx) Start: 07-19-2022 End: 07-19-2022 ambulatory Nick Golias PT Work Phone: [facility] Comment on above: Chronic left hip gutierrez n; Pain of left hip joint Start: 07-11-2022 Telephone encounter Breanna Ortiz APRN.BASKET SORTER Work Phone: Internal Medicine [place] Comment on above: Results Start: 07-08-2022 End: 07-08-2022 Subsequent hospital visit by physician Xr [facility] [place] Work Phone: Radiology Comment on above: Chronic left hip gutierrez n [M25.552, G89.29] Start: 07-08-2022 End: 07-08-2022 Patient encounter procedure Breanna Ortiz APRN.CNP Work Phone: Internal Medicine [place] Comment on above: Dermatitis (Primary Dx); Chronic left hip pain Start: 06-07-2022 Refill Ramandeep Pickard Work Phone: Internal Medicine [place] Comment on above: Refill Request Start: 04-14-2022 End: 04-14-2022 Patient encounter procedure Ramandeep Alvarez MD Work Phone: Internal Medicine [place] Comment on above: Essential hypertensi on (Primary Dx); Encounter for immunization; Pure hypercholesterolemia; PHN (postherpetic neuralgia); Chronic venous insufficiency Start: 01-21-2022 Telephone encounter Ramandeep galeas MD Work Phone: Internal Medicine [place] Comment on above: Release Of Medical R ecords Start: 12-22-2021 Telephone encounter Breanna Ortiz APRN.CNP Work Phone: Internal Medicine [place] Comment on above: Results Start: 11-24-2021 Telephone encounter Breanna Ortiz APRN.CNP Work Phone: Family Medicine [place] Comment on above: Hypertension Start: 10-08-2021 Refill Ramandeep Pickard Work Phone: Family [facility] Comment on above: Refill Request Start: 09-30-2021 Telephone encounter Ramandeep galeas MD Work Phone: Internal Medicine [place] Comment on above: Insurance Authorizat ion Start: 07-29-2021 Telephone encounter Ramandeep galeas MD Work Phone: Internal Medicine [place] Comment on above: Results Start: 07-29-2021 End: 07-29-2021 Subsequent hospital visit by physician [facility] Work Phone: Cardiology Lab Comment on above: Encounter for screen ing for cardiovascular disorders [Z13.6] Start: 07-28-2021 Telephone encounter Melisa Gomes RN Cardiology Lab Comment on above: Reminder Call Start: 07-27-2021 Telephone encounter Ramandeep galeas MD Work Phone: Internal Medicine [place] Comment on above: [employer] requesting records Start: 07-12-2021 Telephone encounter Ramandeep galeas MD Work Phone: Internal Medicine [place] Comment on above: Patient Update Start: 07-09-2021 Telephone encounter Carie Worrell APRN.BASKET SORTER Work Phone: Family Medicine [place] Comment on above: Results Start: 07-09-2021 End: 07-09-2021 Subsequent hospital visit by physician [facility] (I-Stat) Work Phone: Cat Scan Comment on above: Back pain, unspecifi ed back location, unspecified back pain laterality, unspecified chronicity [M54.9] Start: 07-08-2021 Telephone encounter Ramandeep galeas MD Work Phone: Internal Medicine [place] Comment on above: Fax requested Start: 07-07-2021 Telephone encounter Breanna Ortiz APRN.BASKET SORTER Work Phone: Family Medicine [place] Comment on above: Results Start: 07-02-2021 Telephone encounter Ramandeep galeas MD Work Phone: Internal Medicine [place] Comment on above: Patient Request Start: 07-01-2021 Documentation procedure Mammog radha Coordinator [facility] Start: 07-01-2021 Letter encounter Mammography Coordinator [facility] Department Start: 07-01-2021 End: 07-01-2021 Subsequent hospital visit by physician Screen Mammo [facility] Comment on above: Breast cancer screen ing by mammogram [Z12.31] Start: 06-18-2021 End: 06-18-2021 Patient encounter procedure Ramandeep Alvarez MD Work Phone: Internal Medicine [place] Comment on above: Medicare annual well ness visit, subsequent (Primary Dx); Hot flashes; Insomnia, unspecified type; Pure hypercholesterolemia; Essential hypertension; Breast cancer screening by mammogram Procedures Date Procedure Procedure Detail Performing Clinician Start: 01-09-2024 [employer] [place] COVI D-19 VACCINE AGE 12+ YR (COMIRNATY) Ramandeep Alvarez MD Work Phone: Start: 12-18-2023 End: 12-18-2023 Radiological examination surgical specimen Loy Kwon MD Work Phone: Start: 12-13-2023 Perq breast loc dennis ce placemt 1st lesio us imag Loy Kwon MD Work Phone: Start: 12-13-2023 Diagnostic mammograp hy computer-aided detcj uni Loy Kwon MD Work Phone: Start: 11-20-2023 Diagnostic mammograp hy computer-aided detcj mariella Medina MD Work Phone: Start: 11-20-2023 Bx breast w/device 1 st lesion magnetic res guid Mo Medina MD Work Phone: Start: 11-06-2023 Perq breast loc dennis ce placemt 1st lesio mr anh Saba MD Work Phone: Start: 11-06-2023 Bx breast w/device 1 st lesion ultrasound anh Saba MD Work Phone: Start: 11-06-2023 Diagnostic mammograp hy computer-aided detcj uni Kisha Saba MD Work Phone: Start: 10-27-2023 Us breast uni real t frankie with image limited Chanel Pascual MD Work Phone: Start: 10-19-2023 Us lmtd joint/oth no nvasc xtr strux r-t w/img Loy Kwon MD Work Phone: Start: 10-04-2023 Bx breast w/device 1 st lesion stereotactic guid Ayo Joel MD Work Phone: Start: 08-22-2023 Us breast uni real t frankie with image limited Angélica Pulido BELLMAN.FUNCTIONAL ARCHITECT Work Phone: Start: 08-22-2023 Digital breast tomosynthesis bilateral Angélica Pulido BELLMAN.FUNCTIONAL ARCHITECT Work Phone: Start: 07-11-2023 Adult depression scr eening assessment Loy Kwon MD Work Phone: Start: 07-08-2022 Radex hip unilateral with pelvis 2-3 views Breanna Ortiz BELLMAN.BASKET SORTER Work Phone: Start: 07-29-2021 Myocardial spect mul tiple studies Ramandeep Alvarez MD Work Phone: Start: 07-09-2021 Ct thorax w/contrast material Breanna Ortiz BELLMAN.BASKET SORTER Work Phone: Start: 07-01-2021 VALERI SCREENING W ARMANDO Ch briseida Alvarez MD Work Phone: Plan of Treatment Date Care Activity Detail Author Start: 10-15-2031 Urine microalbumin profile DTaP,Tdap,Td Vaccine (2 - Td or Tdap) [facility] Start: 08-23-2027 Diabetes Screening Diabetes Screening [facility] Start: 12-07-2026 Diabetes Screening Diabetes Screening [facility] Start: 07-10-2026 Diabetes Screening Diabetes Screening [facility] Start: 01-05-2026 Diabetes Screening Diabetes Screening [facility] Start: 02-13-2025 End: 02-13-2025 [facility] Comment on above: (SO)BMP(S)* 2ND FLOOR Start: 01-03-2025 End: 01-03-2025 ambulatory 01/03/2025 11:00 AM EDT Visit (SP) Office Hematology/Oncology [address] [place] [address] Susan Carrero APRN.BASKET SORTER [address] [place] [address] 6 MO OV* Hematology/Oncolog y Comment on above: 6 MO OV* Start: 12-21-2024 DIABETES SCREEN DIABETES SCREEN [facility] Start: 11-21-2024 End: 11-21-2024 [facility] Comment on above: (SO)BMP(S)* 2ND FLOOR Start: 11-07-2024 End: 11-07-2024 ambulatory [facility] Comment on above: BMP 2ND FLOOR Start: 08-22-2024 End: 08-22-2024 ambulatory [facility] Comment on above: BMP 2ND FLOOR (SO)BMP(S)* Start: 07-10-2024 Depression Screening Depression Screening [facility] Start: 07-09-2024 Covid-19 Vaccine ( season) Covid-19 Vaccine ( season) [facility] Start: 07-09-2024 End: 07-09-2024 Patient encounter procedure 07/09/2024 9:40 AM EDT Office Visit Internal Medicine [place] [address] [place] [address] Ramandeep Alvarez MD [address] [place] [address] 6 month follow up Internal Medicine [place] Comment on above: 6 month follow up Start: 07-04-2024 End: 07-04-2024 Patient encounter procedure 07/04/2024 11:10 AM EDT Appointment Mammogram [address] [place] [address] VALERI SCREENING W ARMANDO Mammogram Comment on above: VALERI SCREENING W ARMANDO Start: 07-04-2024 End: 07-04-2024 ambulatory 07/04/2024 10:00 AM EDT Visit (SP) Office Hematology/Oncology [address] [place] [address] Susan Carrero APRN.BASKET SORTER [address] [place] [address] 6MO OV/scp* Hematology/Oncolog y Comment on above: 6MO OV/scp* Start: 06-25-2024 End: 09-24-2024 Lipid 1996 panel - Serum or Plasma LIPID PANEL, FASTING Lab Routine Pure hypercholesterolemia Expected: 06/25/2024, Expires: 09/24/2024 [facility] Work Phone: Comment on above: Expected: 06/25/2024, Expires: Start: 04-04-2024 End: 04-04-2024 Patient encounter procedure 04/04/2024 12:30 PM EST Office Visit Breast Center [address] [place] [address] [place] [address] [place] [address] FOLLOW UP - STAFF MESSAGE [facility] Comment on above: FOLLOW UP - STAFF MESSAGE Start: 03-27-2024 Advance Directive Discussion Advance Directive Discussion [facility] Start: 03-27-2024 Medicare Advantage Annual Wellness Visit Medicare Advantage Annual Wellness Visit [facility] Start: 01-09-2024 End: 01-09-2024 Patient encounter procedure 01/09/2024 10:00 AM EDT Office Visit Internal Medicine [place] [address] [place] [address] Ramandeep Alvarez MD [address] [place] [address] Yearly Exam Internal Medicine [place] Comment on above: Yearly Exam Start: 01-03-2024 End: 01-03-2024 Patient encounter procedure 01/03/2024 1:30 PM EDT Office Visit Radiation Oncology [address] [place] [address] Jillian Delgado MD [address] [place] [address] follow-up consult r/s from 12/27 Radiation Oncology Comment on above: follow-up consult r/s from 12/27 Start: 01-02-2024 End: 01-02-2024 ambulatory 01/02/2024 9:10 AM EDT Visit (SP) Office Hematology/Oncology [address] [place] [address] Laney Ignacio DO [address] [place] [address] 1 MO OV* Hematology/Oncolog y Comment on above: 1 MO OV* Start: 12-29-2023 End: 12-29-2023 ambulatory 12/29/2023 9:50 AM EDT Visit (SP) Office Hematology/Oncology [address] [place] [address] Laney Ignacio DO [address] [place] [address] 1 MO OV* Hematology/Oncolog y Comment on above: 1 MO OV* Start: 12-28-2023 End: 12-28-2023 Patient encounter procedure 12/28/2023 9:30 AM EDT Office Visit Radiation Oncology [address] [place] [address] Jillian Delgado MD [address] [place] [address] follow-up consult Radiation Oncology Comment on above: follow-up consult Start: 12-27-2023 End: 12-27-2023 Patient encounter procedure 12/27/2023 10:00 AM EDT Office Visit [facility] [address] [place], [place] [id number] [place] [address] [place] [address] post op Breast Center Comment on above: post op Start: 12-26-2023 End: 12-26-2023 Patient encounter procedure 12/26/2023 10:00 AM EDT Education Nutrition Therapy [address] [place] [address] Jeff Velasquez, VERONICA [address] [place] [address] Nutrition consult Nutrition Therapy Comment on above: Nutrition consult Start: 12-21-2023 End: 12-21-2023 Patient encounter procedure 12/21/2023 9:00 AM EDT Office Visit Radiation Oncology [address] [place] [address] Jillian Delgado MD [address] [place] [address] follow-up consult Radiation Oncology Comment on above: follow-up consult Start: 12-19-2023 End: 12-19-2023 ambulatory 12/19/2023 4:00 PM EDT Visit (SP) Office Hematology/Oncology [address] [place] [address] Laney Ignacio DO [address] [address] 1 MO OV* Hematology/Oncolog y Comment on above: 1 MO OV* Start: 12-19-2023 End: 12-19-2023 Patient encounter procedure 12/19/2023 2:30 PM EDT Education Nutrition Therapy [address] [place] [address] [place] [address] Nutrition consult Nutrition Therapy Comment on above: Nutrition consult Start: 12-18-2023 End: 12-18-2023 Admission to same day surgery center Ambulatory Surgery Comment on above: MASTECTOMY SIMPLE Start: 12-18-2023 End: 12-18-2023 Bx/exc lymph node open deep axillary node [facility] Start: 12-18-2023 End: 12-18-2023 Exc breast les preop plmt rad marker open 1 les LEGACY [facility] Start: 12-18-2023 End: 12-18-2023 Intraop sentinel lymph node id w/dye injection [facility] Start: 12-18-2023 End: 12-18-2023 Mastectomy simple complete [facility] Start: 12-18-2023 Subsequent hospital visit by physician Ambulatory Surgery Comment on above: Malignant neoplasm of upper-outer quadra nt of right breast in female, estrogen receptor positive (HCC) [C50.411, Z17.0] Malignant neoplasm o f upper-outer quadrant of right breast in female, estrogen receptor positive (HCC) [C50.411, Z17.0], Atypical lobular hyperplasia (ALH) of left breast [N60.92] Start: 12-15-2023 End: 12-15-2023 Patient encounter procedure 12/15/2023 10:30 AM EDT Office Visit Cardiology [address] [place] [address] ECHO Cardiology Comment on above: ECHO Start: 12-13-2023 End: 12-13-2023 Nursing evaluation of patient and report Breast Center Comment on above: preop teaching preop teaching Start: 12-13-2023 End: 12-13-2023 Patient encounter procedure Mammography Comment on above: jazmyn jazmyn Start: 12-08-2023 End: 12-08-2023 Anesthesia consultation 12/08/2023 1:40 PM EDT PAT Pre Anesthesia [address] [place] [address] 1, Pacc Joshua [address] [place] [address] preop Pre Anesthesia Comment on above: preop Start: 11-26-2023 Covid-19 Vaccine () Covid-19 Vaccine () [facility] Start: 11-26-2023 Covid-19 Vaccine () Covid-19 Vaccine () [facility] Start: 11-26-2023 Influenza vaccination Influenza Vaccine (#1) [facility] Start: 11-23-2023 Subsequent hospital visit by physician 11/23/2023 11:00 AM EDT Hospital Encounter [facility] [address] [place], [place] [id number] Canceled (CC cx: Patient Accepted Sooner Appointment) [facility] Comment on above: Canceled (CC cx: Patient Accepted Sooner Appointment) Start: 11-20-2023 End: 11-20-2023 Patient encounter procedure 11/20/2023 1:20 PM EDT Appointment MRI A10 [address] [id number] Left Breast MRI Bx per email MRI A10 Comment on above: Left Breast MRI Bx per email Start: 11-20-2023 Subsequent hospital visit by physician 11/20/2023 1:20 PM EDT Hospital Encounter MRI A10 [address] [address] Abnormal MRI, breast [R92.8] MRI A10 Comment on above: Abnormal MRI, breast [R92.8] Start: 11-08-2023 End: 11-08-2023 ambulatory 11/08/2023 3:00 PM EDT Visit (SP) Office Hematology/Oncology [address], [place] [phone] Laney Ignacio DO [address], [place] [phone] TRANSCRIPTIONIST/BREAST/REF PROV DR KWON* Hematology/Oncolog y Comment on above: TRANSCRIPTIONIST/BREAST/REF PROV DR KWON* Start: 11-08-2023 End: 02-07-2024 Ferritin [Mass/volume] in Serum or Plasma [facility] Comment on above: Expected: 11/08/2023, Expires: Start: 11-08-2023 End: 02-07-2024 Iron and Iron binding capacity panel - Serum or Plasma [facility] Work Phone: Comment on above: Expected: 11/08/2023, Expires: Start: 11-08-2023 End: 11-08-2023 Patient encounter procedure 11/08/2023 1:30 PM EDT Office Visit Radiation Oncology [address] [place] [address] Jillian Delgado MD [address] [facility] [place] [address] BREAST CONSULT Radiation Oncology Comment on above: BREAST CONSULT Start: 11-06-2023 End: 11-06-2023 Patient encounter procedure 11/06/2023 8:30 AM EDT Appointment Mammography [address] [place] [address] LEFT BREAST ULTRASOUND GUIDED CORE BIPOPSY....MRI CLIP PLACEMENT Mammography Comment on above: LEFT BREAST ULTRASOUND GUIDED CORE BIPOP SY....MRI CLIP PLACEMENT Start: 10-27-2023 End: 10-27-2023 Patient encounter procedure 10/27/2023 2:15 PM EDT Appointment Mammography [address] [place] [address] 2nd look n 8/2 at 2:15 at Mammography Comment on above: 2nd look n 8/2 at 2:15 at Start: 10-21-2023 End: 10-21-2023 Patient encounter procedure 10/21/2023 9:40 AM EDT Appointment [facility] [address] [place] [address] Right breast, anterior, calcifications, stereotactic-guided core biopsy, with tophat clip placement (A): [facility]IO [facility] Comment on above: Right breast, anterior, calcifications, stereotactic-guided core biopsy, with tophat clip placement (A): Start: 10-19-2023 End: 10-19-2023 Patient encounter procedure 10/19/2023 11:45 AM EDT Office Visit Breast Center [address] [place] [address] [place] [address] [place] [address] [facility] Comment on above: [facility] Start: 10-04-2023 End: 10-04-2023 Patient encounter procedure Mammography Comment on above: RIGHT BREAST ULTRASOUND GUIDED CORE BIOP SY SITE1 RIGHT BREAST ULTRASO UND GUIDED CORE BIOPSY SITE 2 Start: 09-13-2023 End: 09-13-2023 Patient encounter procedure 09/13/2023 1:15 PM EDT Office Visit General Surgery [address] [place], [place] [phone] Mary Carreon MD [address] [place] [phone] breast consult General Surgery Comment on above: breast consult Start: 08-22-2023 End: 08-22-2023 Patient encounter procedure Mammogram Comment on above: bilateral diag mamm and us cb per ym bilateral diag valeri a nd us cb per sb Comp-CB Bilat calcs LT asymmetry Start: 08-08-2023 End: 11-07-2023 CBC W Auto Differential panel - Blood COMPLETE BLOOD COUNT AND DIFFERENTIAL Lab Routine Iron deficiency anemia, unspecified iron deficiency anemia type Expected: 08/08/2023, Expires: 11/07/2023 [facility] Work Phone: Comment on above: Expected: 08/08/2023, Expires: Start: 07-27-2023 End: 07-27-2023 Patient encounter procedure Radiology Comment on above: Encounter for screening for osteoporosis [Z13.820] Encounter for screen ing mammogram for breast cancer [Z12.31] Start: 07-11-2023 End: 10-10-2023 25-hydroxyvitamin D3 [Mass/volume] in Serum or Plasma [facility] Work Phone: Comment on above: Expected: 07/11/2023, Expires: 4 Start: 07-11-2023 End: 10-10-2023 Hemoglobin A1c in Blood [facility] Work Phone: Comment on above: Expected: 07/11/2023, Expires: 4 Start: 04-20-2023 Covid-19 Vaccine () Covid-19 Vaccine () [facility] Start: 04-20-2023 Covid-19 Vaccine ( season) Covid-19 Vaccine ( season) [facility] Start: 04-14-2023 Urine microalbumin profile DTAP,TDAP,TD (1 - Tdap) [facility] Comment on above: Postponed from 2012 (Declined at t his time) Start: 12-31-2022 End: 03-02-2023 Comprehensive metabolic 2000 panel - Serum or Plasma COMP METABOLIC PANEL Lab Routine Gastroesophageal reflux disease, unspecified whether esophagitis present Pure hypercholesterolemia Expected: 12/31/2022 (Approximate), Expires: 03/02/2023 [facility] Work Phone: Comment on above: Expected: 12/31/2022 (Approximate), Expi res: 03/02/2023 Start: 12-31-2022 End: 03-02-2023 Lipid 1996 panel - Serum or Plasma LIPID PANEL BASIC Lab Routine Pure hypercholesterolemia Expected: 12/31/2022 (Approximate), Expires: 03/02/2023 [facility] Work Phone: Comment on above: Expected: 12/31/2022 (Approximate), Expi res: 03/02/2023 Start: 12-11-2022 DIABETES SCREEN DIABETES SCREEN [facility] Start: 11-25-2022 Influenza vaccination INFLUENZA (#1) [facility] Start: 09-30-2022 End: 11-30-2022 CBC W Auto Differential panel - Blood CBC + DIFF Lab Routine Gastroesophageal reflux disease, unspecified whether esophagitis present Expected: 09/30/2022 (Approximate), Expires: 11/30/2022 [facility] Work Phone: Comment on above: Expected: 09/30/2022 (Approximate), Expi res: 11/30/2022 Start: 03-27-2022 ADVANCE DIRECTIVE DISCUSSION ADVANCE DIRECTIVE DISCUSSION [facility] Start: 03-27-2022 DEPRESSION ASSESSMENT DEPRESSION ASSESSMENT [facility] Start: 12-19-2021 End: 02-18-2022 CBC W Auto Differential panel - Blood CBC + DIFF Lab Routine Essential hypertension Expected: 12/19/2021, Expires: 02/18/2022 [facility] Work Phone: Comment on above: Expected: 12/19/2021, Expires: 2 Start: 12-19-2021 End: 02-18-2022 Comprehensive metabolic 2000 panel - Serum or Plasma COMP METABOLIC PANEL Lab Routine Pure hypercholesterolemia Expected: 12/19/2021, Expires: 02/18/2022 [facility] Work Phone: Comment on above: Expected: 12/19/2021, Expires: 2 Start: 12-19-2021 End: 02-18-2022 LIPID PANEL BASIC LIPID PANEL BASIC Lab Routine Pure hypercholesterolemia Expected: 12/19/2021, Expires: 02/18/2022 [facility] Work Phone: Comment on above: Expected: 12/19/2021, Expires: 2 Start: 11-25-2021 Influenza vaccination INFLUENZA (#1) [facility] Start: 07-12-2021 End: 11-11-2021 SARS-CoV-2 (COVID-19) RNA [Presence] in Respiratory specimen by RENAN with probe detection INTERMEDIATE RAPID COVID Microbiology Routine Encounter for screening for cardiovascular disorders Expected: 07/12/2021, Expires: 11/11/2021 [facility] Work Phone: Comment on above: Expected: 07/12/2021, Expires: 2 Start: 07-08-2021 End: 09-07-2021 CREATININE BLD CREATININE BLD Lab Routine Back pain, unspecified back location, unspecified back pain laterality, unspecified chronicity Chest pain, unspecified type Elevated d-dimer Expected: 07/08/2021, Expires: 09/07/2021 [facility] Work Phone: Comment on above: Expected: 07/08/2021, Expires: 2 Start: 07-02-2021 End: 09-01-2021 Fibrin D-dimer FEU [Mass/volume] in Platelet poor plasma D-DIMER Lab Routine Leg swelling Expected: 07/02/2021, Expires: 09/01/2021 [facility] Work Phone: Comment on above: Expected: 07/02/2021, Expires: Start: 06-09-2021 COVID-19 VACCINE (4 - Booster for Pfizer series) COVID-19 VACCINE (4 - Booster for Pfizer series) [facility] Start: 04-06-2021 COVID-19 VACCINE (4 - Booster for Pfizer series) COVID-19 VACCINE (4 - Booster for Pfizer series) [facility] Start: 10-27-2020 COVID-19 VACCINE (3 - Booster for Pfizer series) COVID-19 VACCINE (3 - Booster for Pfizer series) [facility] Start: 2012 Urine microalbumin profile DTAP,TDAP,TD (1 - Tdap) [facility] Start: 1997 RSV Vaccine (1 - 1-dose 60+ series) RSV Vaccine (1 - 1-dose 60+ series) [facility] End: 08-09-2024 BD DXA TRABECULAR BONE SCORE (TBS) BD DXA TRABECULAR BONE SCORE (TBS) Radiology Routine Encounter for screening for osteoporosis Asymptomatic postmenopausal status 1 Occurrences starting 07/11/2023 until 08/09/2024 [facility] Work Phone: Comment on above: 1 Occurrences starting 07/11/2023 until 08/09/2024 BD DXA TRABECULAR JASPER NE SCORE (TBS) BD DXA TRABECULAR BONE SCORE (TBS) Radiology Routine Encounter for screening for osteoporosis Asymptomatic postmenopausal status 07/27/2023 12:43 PM EDT [facility] Bx/exc lymph node op en deep axillary node BIOPSY NODE AXILLARY Malignant neoplasm of upper-outer quadrant of right breast in female, estrogen receptor positive (HCC) Atypical lobular hyperplasia (ALH) of left breast [facility] End: 08-07-2022 Ct thorax w/contrast material CT CHEST W IVCON PE Radiology STAT Back pain, unspecified back location, unspecified back pain laterality, unspecified chronicity Chest pain, unspecified type Elevated d-dimer 1 Occurrences starting 07/08/2021 until 08/07/2022 [facility] Work Phone: Comment on above: 1 Occurrences starting 07/08/2021 until 08/07/2022 DBT Breast - bilater al screening VALERI SCREENING W RAMANDO Radiology Routine Atypical lobular hyperplasia (ALH) of left breast 07/04/2024 11:09 AM EDT [facility] Work Phone: End: 08-09-2024 DXA Skeletal system.axial Views for bone density DXA-AXIAL SKELETON Radiology Routine Encounter for screening for osteoporosis Asymptomatic postmenopausal status 1 Occurrences starting 07/11/2023 until 08/09/2024 [facility] Work Phone: Comment on above: 1 Occurrences starting 07/11/2023 until 08/09/2024 DXA Skeletal system.axial Views for bone density DXA-AXIAL SKELETON Radiology Routine Encounter for screening for osteoporosis Asymptomatic postmenopausal status 07/27/2023 12:43 PM EDT [facility] Work Phone: End: 12-07-2024 ECG COMPLETE ECG COMPLETE ECG Routine Pre-operative examination 1 Occurrences starting 12/08/2023 until 12/07/2024 [facility] Work Phone: Comment on above: 1 Occurrences starting 12/08/2023 until 12/07/2024 End: 12-07-2024 Echocardiography ECHO Cardiology Routine Pre-operative examination 1 Occurrences starting 12/08/2023 until 12/07/2024 [facility] Comment on above: 1 Occurrences starting 12/08/2023 until 12/07/2024 Exc breast les preop plmt rad marker open 1 les EXCISION BREAST LESION IDENTIFIED BY PREOPERATIVE PLACEMENT RADIOLOGICAL MARKER, OPEN, SINGLE LESION Malignant neoplasm of upper-outer quadrant of right breast in female, estrogen receptor positive (HCC) Atypical lobular hyperplasia (ALH) of left breast [facility] Intraop sentinel lym ph node id w/dye injection INTRAOPERATIVE ID OF SENTINEL LYMPH NODE(S) INCL'D INJECTION OF NON-RAD DYE WHEN PERFORMED Malignant neoplasm of upper-outer quadrant of right breast in female, estrogen receptor positive (HCC) Atypical lobular hyperplasia (ALH) of left breast [facility] End: 02-04-2024 VALERI SCREENING VALERI SCREENING Radiology Routine Encounter for screening mammogram for breast cancer 1 Occurrences starting 01/05/2023 until 02/04/2024 [facility] Work Phone: Comment on above: 1 Occurrences starting 01/05/2023 until 02/04/2024 End: 07-18-2022 VALERI SCREENING W ARMANDO VALERI SCREENING W ARMANDO Radiology Routine Breast cancer screening by mammogram 1 Occurrences starting 06/18/2021 until 07/18/2022 [facility] Work Phone: Comment on above: 1 Occurrences starting 06/18/2021 until 07/18/2022 End: 02-04-2024 VALERI SCREENING W ARMANDO VALERI SCREENING W ARMANDO Radiology Routine Encounter for screening mammogram for breast cancer 1 Occurrences starting 01/05/2023 until 02/04/2024 [facility] Work Phone: Comment on above: 1 Occurrences starting 01/05/2023 until 02/04/2024 Mastectomy simple complete MASTECTOMY SIMPLE Malignant neoplasm of upper-outer quadrant of right breast in female, estrogen receptor positive (HCC) Atypical lobular hyperplasia (ALH) of left breast [facility] End: 08-28-2024 MG Breast - bilateral Diagnostic VALERI DIAGNOSTIC BILATERAL Radiology Routine Abnormal mammogram of both breasts 1 Occurrences starting 07/30/2023 until 08/28/2024 [facility] Work Phone: Comment on above: 1 Occurrences starting 07/30/2023 until 08/28/2024 MG Breast Screening VALERI SCREENIN G Radiology Routine Encounter for screening mammogram for breast cancer 07/27/2023 1:17 PM EDT [facility] Work Phone: End: 12-22-2024 MG Guidance for needle localization of Breast - left VALERI NDL LOC W VALERI GD LEFT Radiology Routine Abnormal finding on breast imaging 1 Occurrences starting 11/23/2023 until 12/22/2024 [facility] Work Phone: Comment on above: 1 Occurrences starting 11/23/2023 until 12/22/2024 End: 09-27-2024 MG stereo Guidance for biopsy of Breast - right VALERI STEREO BX BREAST RIGHT Radiology Routine Abnormal finding on breast imaging 1 Occurrences starting 08/29/2023 until 09/27/2024 [facility] Work Phone: Comment on above: 1 Occurrences starting 08/29/2023 until 09/27/2024 End: 10-03-2024 MG stereo Guidance for biopsy of Breast - right VALERI STEREO BX BREAST RIGHT Radiology Routine Abnormal mammogram 1 Occurrences starting 09/04/2023 until 10/03/2024 [facility] Work Phone: Comment on above: 1 Occurrences starting 09/04/2023 until 10/03/2024 End: 11-10-2024 MR Breast - bilateral WO and W contrast IV MRI BREAST WO/W IVCON BILATERAL Radiology Routine Malignant neoplasm of upper-outer quadrant of right breast in female, estrogen receptor positive (HCC) 1 Occurrences starting 10/12/2023 until 11/10/2024 [facility] Work Phone: Comment on above: 1 Occurrences starting 10/12/2023 until 11/10/2024 MR Breast - bilatera l WO and W contrast IV MRI BREAST WO/W IVCON BILATERAL Radiology Routine Malignant neoplasm of upper-outer quadrant of right breast in female, estrogen receptor positive (HCC) 10/21/2023 10:46 AM EDT [facility] Work Phone: End: 12-06-2024 MR Breast - left WO and W contrast IV MRI BREAST BX WO/W IVCON LEFT Radiology Routine Abnormal MRI, breast 1 Occurrences starting 11/07/2023 until 12/06/2024 [facility] Work Phone: Comment on above: 1 Occurrences starting 11/07/2023 until 12/06/2024 End: 11-10-2024 MRI BREAST 3D POST PROCESSING MRI BREAST 3D POST PROCESSING Radiology Routine Malignant neoplasm of upper-outer quadrant of right breast in female, estrogen receptor positive (HCC) 1 Occurrences starting 10/12/2023 until 11/10/2024 [facility] Comment on above: 1 Occurrences starting 10/12/2023 until 11/10/2024 MRI BREAST 3D POST PROCESSING MRI BREAST 3D POST PROCESSING Radiology Routine Malignant neoplasm of upper-outer quadrant of right breast in female, estrogen receptor positive (HCC) 10/21/2023 10:46 AM EDT [facility] End: 08-11-2022 NM CARDIAC PERF STRESS/EXERCISE NM CARDIAC PERF STRESS/EXERCISE Radiology Routine Encounter for screening for cardiovascular disorders 1 Occurrences starting 07/12/2021 until 08/11/2022 [facility] Work Phone: Comment on above: 1 Occurrences starting 07/12/2021 until 08/11/2022 Anevia COVI D-19 BIVALENT BOOSTER VACCINE, AGE 12+ YR Anevia COVID-19 BIVALENT BOOSTER VACCINE, AGE 12+ YR Immunization/Injection Routine Encounter for immunization Ordered: 04/14/2022 [facility] Work Phone: Comment on above: Ordered: 04/14/2022 PT PLAN OF CARE CERTIFICATION PT PLAN OF CARE CERTIFICATION Procedures Routine Chronic left hip pain Pain of left hip joint Ordered: 07/19/2022 [facility] Work Phone: Comment on above: Ordered: 07/19/2022 SURGICAL PATHOLOGY [facility] Work Phone: Comment on above: Release Upon Ordering for 1 Occurrences starting 10/04/2023, 1 completed SURGICAL PATHOLOGY [facility] Work Phone: Comment on above: Release Upon Ordering for 1 Occurrences starting 11/06/2023, 1 completed SURGICAL PATHOLOGY [facility] Work Phone: Comment on above: Release Upon Ordering for 1 Occurrences starting 11/20/2023, 1 completed SURGICAL PATHOLOGY [facility] Work Phone: Comment on above: Release Upon Ordering for 1 Occurrences starting 12/18/2023, 1 completed End: 08-28-2024 US Breast - left limited US BREAST LTD LEFT Radiology Routine Abnormal mammogram of both breasts 1 Occurrences starting 07/30/2023 until 08/28/2024 [facility] Comment on above: 1 Occurrences starting 07/30/2023 until 08/28/2024 End: 11-21-2024 US Breast - left limited US BREAST LTD LEFT Radiology Routine Breast disorder 1 Occurrences starting 10/23/2023 until 11/21/2024 [facility] Work Phone: Comment on above: 1 Occurrences starting 10/23/2023 until 11/21/2024 End: 08-28-2024 US Breast - right limited US BREAST LTD RIGHT Radiology Routine Abnormal mammogram of both breasts 1 Occurrences starting 07/30/2023 until 08/28/2024 [facility] Comment on above: 1 Occurrences starting 07/30/2023 until 08/28/2024 [facility] Immunizations Immunization Date Immunization Notes Care Provider Piotr godinez 01-09-2024 COVID-19 vaccine, ag e 12+ yr (PFIZER-BIONTECH COMIRNATY) Ramandeep Alvarez MD Work Phone: [facility] 01-09-2024 influenza, high dose seasonal, preservative-free Ramandeep Alvarez MD Work Phone: [facility] 01-20-2023 respiratory syncytia l virus (RSV) vaccine, bivalent (ABRYSVO) Ramandeep Alvarez MD Work Phone: [facility] 12-19-2022 COVID-19 vaccine, ag e 12+ yr, season (MODERNA) Angélica Pulido BELLMAN.FUNCTIONAL ARCHITECT Work Phone: [facility] Work Phone: 12-19-2022 COVID-19 vaccine, ag e 12+ yr, season (PFIZER-BIONTECH) Angélica Pulido BELLMAN.FUNCTIONAL ARCHITECT Work Phone: [facility] Work Phone: 12-19-2022 influenza (aIIV4) vaccine, age 65+ yr, quadrivalent, PF (FLUAD QUAD) Angélica Pulido BELLMAN.FUNCTIONAL ARCHITECT Work Phone: [facility] 12-19-2022 influenza virus vaccine, unspecified formulation Procedure [facility] 05-04-2022 COVID-19 booster vaccine, age 12+ yr, bivalent (PFIZER-BIONTECH) Ramandeep Alvarez MD Work Phone: [facility] 05-04-2022 COVID-19 vaccine, ag e 12+ yr, bivalent (MODERNA) Angélica Pulido BELLMAN.FUNCTIONAL ARCHITECT Work Phone: [facility] Work Phone: 12-21-2021 influenza, high-dose , quadrivalent vaccine (FLUZONE HIGH DOSE QUADRIVALENT) Breanna Ortiz BELLMAN.BASKET SORTER Work Phone: [facility] Work Phone: 10-14-2021 tetanus toxoid, redu mary diphtheria toxoid, and acellular pertussis vaccine, adsorbed Angélica Pulido BELLMAN.FUNCTIONAL ARCHITECT Work Phone: [facility] Work Phone: 06-26-2021 pneumococcal polysaccharide vaccine, 23 valent Screen Wstr [facility] 12-11-2020 influenza (aIIV4) vaccine, age 65+ yr, quadrivalent, PF (FLUAD QUAD) Angélica Pulido BELLMAN.FUNCTIONAL ARCHITECT Work Phone: [facility] Work Phone: 05-27-2020 COVID-19 vaccine, ag e 12+ yr (PFIZER-BIONTECH - PURPLE TOP) Ramandeep Alvarez MD Work Phone: [facility] Work Phone: 05-06-2020 COVID-19 vaccine, ag e 12+ yr (PFIZER-BIONTECH - PURPLE TOP) Ramandeep Alvarez MD Work Phone: [facility] Work Phone: 11-12-2019 influenza, injectabl e, quadrivalent, preservative free Angélica Pulido BELLMAN.FUNCTIONAL ARCHITECT Work Phone: [facility] Work Phone: 09-05-2019 zoster vaccine recombinant Ramandeep Alvarez MD Work Phone: [facility] 07-04-2019 zoster vaccine recombinant Ramandeep Alvarez MD Work Phone: [facility] 12-24-2018 influenza, high dose seasonal, preservative-free Ramandeep Alvarez MD Work Phone: [facility] Work Phone: 12-27-2017 influenza, high dose seasonal, preservative-free Ramandeep Alvarez MD Work Phone: [facility] Work Phone: 01-18-2017 influenza, high dose seasonal, preservative-free Ramandeep Alvarez MD Work Phone: [facility] Work Phone: 07-03-2015 pneumococcal conjuga te vaccine, 13 valent Ramandeep Alvarez MD Work Phone: [facility] 11-02-2012 tetanus and diphther ia toxoids, adsorbed, preservative free, for adult use (2 Lf of tetanus toxoid and 2 Lf of diphtheria toxoid) Ramandeep Alvarez MD Work Phone: [facility] Work Phone: 11-26-2011 influenza virus vaccine, unspecified formulation Ramandeep Alvarez MD Work Phone: [facility] 01-25-2011 influenza virus vaccine, unspecified formulation Ramandeep Alvarez MD Work Phone: [facility] 01-05-2010 influenza virus vaccine, unspecified formulation Ramandeep Alvarez MD Work Phone: [facility] 04-27-2009 zoster vaccine, live Ramandeep Alvarez MD Work Phone: [facility] 12-29-2006 influenza virus vaccine, unspecified formulation Ramandeep Alvarez MD Work Phone: [facility] Work Phone: 05-26-2003 pneumococcal polysaccharide vaccine, 23 valent Ramandeep Alvarez MD Work Phone: [facility] Work Phone: 03-27-2002 tetanus and diphther ia toxoids, adsorbed, preservative free, for adult use (2 Lf of tetanus toxoid and 2 Lf of diphtheria toxoid) Ramandeep Alvarez MD Work Phone: [facility] Work Phone: NEGATED: Highlighted row has not occurred!04-14-2022 COVID-19 booster vaccine, age 12+ yr, bivalent (Anevia) Ramandeep Alvarez MD Work Phone: [facility] Work Phone: Comment on above: Deferred: OTHER NEGATED: Highlighted row has not occurred!12-21-2021 tetanus toxoid, reduced diphtheria toxoid, and acellular pertussis vaccine, adsorbed Breanna Ortiz APRN.CNP Work Phone: [facility] Work Phone: Comment on above: Deferred: OTHER Payers Date Payer Category Payer Medicare (Managed Care) [employer] [employer] O [id number] 2017 Unknown LESLIDORITA SHAHEED [facility] S AND BLUE [facility] ANTH[facility]ORITA [facility] [id number] 2017-Present [phone] [id number] [id number] 2017 Unknown [id number] 2017 Medicare [id number] Social History Date Type Detail Facility Start: 01-25-2011 End: 11-30-2021 Tobacco smoking status NHIS Never smoked tobacco [facility] Work Phone: Start: 06-18-2021 End: 11-08-2023 Alcohol intake Current drinker of alcohol (finding) [facility] Start: 06-27-2017 History SDOH Alcohol Comment occasionally [facility] Start: 1935 Sex Assigned At Not on file C [facility] Start: 06-08-2021 End: 12-21-2021 Exposure to SARS-CoV-2 (event) Not sure [facility] Work Phone: Start: 01-25-2011 End: 11-30-2021 Tobacco use and exposure Smokeless tobacco non-user [facility] Start: 07-27-2022 End: 01-05-2023 History of Social function [facility] Work Phone: Start: 07-27-2022 End: 01-05-2023 Tobacco use panel [facility] Work Phone: Adult Depression Screening Assessment 0 [facility] Work Phone: Start: 11-08-2023 Alcohol Comment occasionally wine [facility] Medical Equipment Procedure Code Equipment Code Equipment Origin al Text Equipment Identifier Dates Stereo Breast Clip [id number] Start : 10-04-2023 Comment on above: Description: Buckle clip Stereo Breast Clip [id number]_[facility] Start : 10-04-2023 Comment on above: Description: Tophat clip Ultrasound Breas t Clip [id number] Start: 11-06-2023 Comment on above: Description: Q Hourglass [id number] Start: 11-20-2023 Ultrasound Localization [id number] Start: 12-13-2023 Comment on above: Description: Jazmyn Functional Status Date Assessment Result Facility 06-27-2014 Are you deaf, or do you have serious difficulty hearing No 06/27/2014 10:35 AM Geetha Montaño Ma No [facility] 06-27-2014 Are you blind, or do you have serious difficulty seeing, even when wearing glasses No 06/27/2014 10:35 AM Geetha Montaño Ma No [facility] 06-27-2014 Do you have serious difficulty walking or climbing stairs No 06/27/2014 10:35 AM Geetha Montaño Ma [facility] 06-27-2014 Do you have difficul ty dressing or bathing No 06/27/2014 10:35 AM Geetha Montaño Ma [facility] 06-27-2014 Because of a physica l, mental, or emotional condition, do you have difficulty doing errands alone such as visiting a physician's office or shopping No 06/27/2014 10:35 AM Geetha Montaño Ma [facility] Mental Status Date Assessment Result Facility 06-27-2014 Because of a physica l, mental, or emotional condition, do you have serious difficulty concentrating, remembering, or making decisions No 06/27/2014 10:35 AM EDT Guy Pepper Geetha Alix [facility] Clinical Notes 06-14-2012 to 08-23-2024 Telephone Encounter - Janice Shanks - 08/23/2024 2:54 PM EDTTelephone Encounter - Janice Shanks - 08/23/2024 2:54 PM EDTTelephone Encounter - KrausKimberly hoffman - 08/09/2024 1:59 PM EDT Note Date & Type Note Facility 08-23-2024 Telephone encounter Note Prescription Refill Information The patient has been identified by name and date of : Yes Caregiver verified no other encounters exist for this prescription request: Yes Caregiver confirmed with patient/requestor that no other refills are due, in the near future, with this provider at this time: Yes The last office visit in the department: 01-09-24 Does the patient have a future office visit with this provider/department: Yes Requested Prescriptions Pending Prescriptions Disp Refills gabapentin (NEURONTIN) 100 mg capsule 90 capsule 1 Sig: Take 1 capsule by mouth daily at bedtime for 180 days. Janice Haque August 23, 2024 2:55 PM [facility] 08-23-2024 Miscellaneous Notes Prescription Refill Information The patient has been identified by name and date of : Yes Caregiver verified no other encounters exist for this prescription request: Yes Caregiver confirmed with patient/requestor that no other refills are due, in the near future, with this provider at this time: Yes The last office visit in the department: 01-09-24 Does the patient have a future office visit with this provider/department: Yes Requested Prescriptions Pending Prescriptions Disp Refills gabapentin (NEURONTIN) 100 mg capsule 90 capsule 1 Sig: Take 1 capsule by mouth daily at bedtime for 180 days. Janice Haque August 23, 2024 2:55 PM documented in this encounter [facility] 08-21-2024 Telephone encounter Note Pt noted on [place] 1st time treatment report. Pt is noted on report for Zometa injection, no social work follow up indicated. OSBALDO Rudolph-Franco [facility] 08-21-2024 Miscellaneous Notes Pt noted on [place] 1st time treatment report. Pt is noted on report for Zometa injection, no social work follow up indicated. OSBALDO Rudolph-Franco documented in this encounter [facility] 08-09-2024 Telephone encounter Note Patient called back and scheduled. Chemo start email sent Kimberly Kraus [facility] 08-09-2024 Miscellaneous Notes Patient called back and scheduled. Chemo start email sent Kimberly Kraus I called Alberto and asked her to call us back to schedule the below requested. Lindsay Sweeney Pss Can schedule BMP/Zometa every 3 months beginning within the next few weeks. Laney Ignacio DO Dental clearance form received. Clear from active disease. Scanned into chart. Jaelyn Evans LPN documented in this encounter [facility] 08-05-2024 Telephone encounter Note I called Alberto and asked her to call us back to schedule the below requested. Lindsay Sweeney Pss [facility] 08-05-2024 Telephone encounter Note Can schedule BMP/Zometa every 3 months beginning within the next few weeks. Laney Ignacio DO [facility] 08-05-2024 Telephone encounter Note Dental clearance form received. Clear from active disease. Scanned into chart. Jaelyn Evans LPN [facility] 07-10-2024 Telephone encounter Note Message relayed to patient [facility] Work Phone: 07-10-2024 Miscellaneous Notes Message relayed to patient Left message for patient to contact office. Melisa Pichardo LPN Please inform pt. that her mammogram looks good. Follow up as scheduled. Susan Carrero APRN.BASKET SORTER documented in this encounter [facility] 07-08-2024 Telephone encounter Note Left message for patient to contact office. Melisa Pichardo LPN [facility] 07-08-2024 Telephone encounter Note Please inform pt. that her mammogram looks good. Follow up as scheduled. Susan Carrero APRN.CNP [facility] Work Phone: 07-04-2024 History of Present illness Narrative Radiology Service Progress Note PATIENT NAME: Alberto Rodriguez DATE OF SERVICE: July 04, 2024 TIME: 11:07 AM PATIENT IDENTITY VERIFICATION COMPLETED USING TWO (2) IDENTIFIERS: Name and Date of confirmed by patient verbally. FALL SCREENING: Has the patient had 2 falls in the last year or 1 fall with injury or currently using an Ambulatory Assistive Device (Walker, Cane, Wheelchair, Crutches, etc.)? No PATIENT GENDER DATA: Assigned female at . status: : No status: NO. PATIENT RELEVANT IMPLANT DATA REVIEWED: Not Applicable PATIENT PRESENTS WITH AN IMPLANTABLE OR ATTACHED INTELLIGENCE OPERATIONS SPECIALIST: No RADIOLOGY DEPARTMENT: Mammography PERIPHERAL IV DATA: Not applicable SIGNED BY: Delfina Oliver July 04, 2024 11:07 AM documented in this encounter [facility] 07-04-2024 Note HNO ID: [id number] Author: KOTA ALLAN Mammo Tech Service: ? Author Type: Customs Opener Verifier Packer Type: Progress Notes Filed: 07/04/2024 11:12 Note Text: Radiology Service Progress Note PATIENT NAME: Alberto Rodriguez DATE OF SERVICE: July 04, 2024 TIME: 11:07 AM PATIENT IDENTITY VERIFICATION COMPLETED USING TWO (2) IDENTIFIERS: Name and Date of confirmed by patient verbally. FALL SCREENING: Has the patient had 2 falls in the last year or 1 fall with injury or currently using an Ambulatory Assistive Device (Walker, Cane, Wheelchair, Crutches, etc.)? No PATIENT GENDER DATA: Assigned female at . status: : No status: NO. PATIENT RELEVANT IMPLANT DATA REVIEWED: Not Applicable PATIENT PRESENTS WITH AN IMPLANTABLE OR ATTACHED INTELLIGENCE OPERATIONS SPECIALIST: No RADIOLOGY DEPARTMENT: Mammography PERIPHERAL IV DATA: Not applicable SIGNED BY: Delfina Oliver July 04, 2024 11:07 AM [facility] 07-04-2024 Note HNO ID: [id number] Author: SUSAN CARRERO APRN.SANTO Service: ? Author Type: Nurse Practitioner Type: Progress Notes Filed: 07/04/2024 10:45 Note Text: Chief Complaint Patient presents with: Established Patient HPI: Alberto Rodriguez is a 88 year old female who presents here today for SCP/breast cancer. Per Dr. Ignacio's previous note: H/o Stereotactic right breast biopsy 10/04/2023. Pathology: Right breast, anterior, calcifications, stereotactic-guided core biopsy, with tophat clip placement (A): - Atypical lobular hyperplasia (ALH). - Fibrocystic changes, including usual ductal hyperplasia (UDH), dense stromal fibrosis, cysts, and apocrine metaplasia, and pseudoangiomatous stromal hyperplasia (PASH). - Microcalcifications in non-neoplastic breast epithelium. - Please see Comment I. 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 - Microcalcifications in lobular neoplasia and non-neoplastic breast epithelium.' Positive (greater than 10%) ER % staining 99 Estrogen Receptor (Staining Intensity) Strong Estrogen Receptor Internal Control Present and Stained as Expected Estrogen Receptor External Control Present and Stained as Expected WY status Positive (greater than or equal to 1%) WY % staining 99 Progesterone Receptor (Staining Intensity) Strong Progesterone Receptor Internal Control Present and Stained as Expected Progesterone Receptor External Control Present and Stained as Expected HER2 IHC Status Equivocal for HER2 Overexpression HER2 IHC Score 2+ Tumor Type Primary Invasive Breast Carcinoma Breast Tumor Grade Not Graded INTERPRETATION: NEGATIVE for HER2 (ERBB2) GENE AMPLIFICATION Ultrasound right axilla 10/19/2023 showed no evidence of adenopathy. Multiple various sized nodes were observed but had benign characteristics. MRI breasts 10/23/2023: IMPRESSION: SUSPICIOUS 1. 1.3 cm area of abnormal enhancement in the upper inner left breast, indeterminate for malignancy. Second look ultrasound is recommended to facilitate possible ultrasound guided biopsy. If not seen sonographically, an MRI guided biopsy would be recommended. 2. 3.8 cm area of abnormal combined mass and nonmasslike enhancement with mixed washout and persistent enhancement kinetics in the 8-10:00 right breast, at site of biopsy-proven malignancy. Additional 2.4 cm area of nonmasslike enhancement in the retroareolar right breast with adjacent biopsy marking clip demonstrating atypical lobular hyperplasia; this area remains somewhat suspicious/indeterminate. When including both abnormal areas of enhancement, total abnormal enhancement would span 6.4 cm. Patient has surgical/oncologic follow-up. 3. Marked background parenchymal enhancement limits sensitivity of MRI. 4. No lymphadenopathy. MRI guided biopsy with clip placement of LEFT breast lesion at 11:00 3 cm from the nipple on 11/06/2023. Pathology: FINAL DIAGNOSIS Left breast, 11:00, 3cmfn, 0.9cm x 0.9cm x 0.6cm mass, ultrasound-guided core biopsy, with Q clip placement: - Focal atypical lobular hyperplasia (ALH), columnar cell change, and dense stromal fibrosis. Scheduled for repeat :MRI biopsy with clip placement 11/19. She lives in [place]. . Has close friend. Fully capable of ADLs and IADLs. Cares for home and yard. Has been diagnosed with anemia in the past. Most recent CBC was 2 months ago indicating moderate anemia. Borderline microcytic indexes. Underwent left breast excisional biopsy along with right mastectomy and sentinel lymph node biopsy on 12/18/2023. Pathology: 1. Left breast, oriented excision (A) - Lobular carcinoma in situ (LCIS), classic type. -Biopsy site changes are identified. 2. Right axillary lymph node, excision (B) - One lymph node, negative for metastatic carcinoma (0/1). 3. Right breast, mastectomy (C) - Invasive mammary carcinoma with mixed ductal and lobular features, [place] grade 1, spanning 0.7 cm, (see comment). 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 -Biopsy site changes are identified. -The surrounding breast tissue shows atypical ductal hyperplasia (ADH), fibrocystic changes and microcalcifications. PJM/pjeddie/12/21/23 Diagnosis Comment CCM Select slides have been reviewed in consultation with Dr. Walters, of the [facility] breast pathology department, who concurs. Block for additional Biomarkers/Molecular studies CCM C14 Synoptic Report INVASIVE CARCINOMA OF THE BREAST: Resection 8th Edition - Protocol posted: 09/13/2023INVASIVE CARCINOMA OF THE BREAST: RESECTION - B, C SPECIMEN Procedure Total m (more content not included)... [facility] 07-04-2024 History of Present illness Narrative Chief Complaint Patient presents with: Established Patient HPI: Alberto Rodriguez is a 88 year old female who presents here today for SCP/breast cancer. Per Dr. Ignacio's previous note: H/o Stereotactic right breast biopsy 10/04/2023. Pathology: Right breast, anterior, calcifications, stereotactic-guided core biopsy, with tophat clip placement (A): - Atypical lobular hyperplasia (ALH). - Fibrocystic changes, including usual ductal hyperplasia (UDH), dense stromal fibrosis, cysts, and apocrine metaplasia, and pseudoangiomatous stromal hyperplasia (PASH). - Microcalcifications in non-neoplastic breast epithelium. - Please see Comment I. 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 - Microcalcifications in lobular neoplasia and non-neoplastic breast epithelium.' Positive (greater than 10%) ER % staining 99 Estrogen Receptor (Staining Intensity) Strong Estrogen Receptor Internal Control Present and Stained as Expected Estrogen Receptor External Control Present and Stained as Expected WY status Positive (greater than or equal to 1%) WY % staining 99 Progesterone Receptor (Staining Intensity) Strong Progesterone Receptor Internal Control Present and Stained as Expected Progesterone Receptor External Control Present and Stained as Expected HER2 IHC Status Equivocal for HER2 Overexpression HER2 IHC Score 2+ Tumor Type Primary Invasive Breast Carcinoma Breast Tumor Grade Not Graded INTERPRETATION: NEGATIVE for HER2 (ERBB2) GENE AMPLIFICATION Ultrasound right axilla 10/19/2023 showed no evidence of adenopathy. Multiple various sized nodes were observed but had benign characteristics. MRI breasts 10/23/2023: IMPRESSION: SUSPICIOUS 1. 1.3 cm area of abnormal enhancement in the upper inner left breast, indeterminate for malignancy. Second look ultrasound is recommended to facilitate possible ultrasound guided biopsy. If not seen sonographically, an MRI guided biopsy would be recommended. 2. 3.8 cm area of abnormal combined mass and nonmasslike enhancement with mixed washout and persistent enhancement kinetics in the 8-10:00 right breast, at site of biopsy-proven malignancy. Additional 2.4 cm area of nonmasslike enhancement in the retroareolar right breast with adjacent biopsy marking clip demonstrating atypical lobular hyperplasia; this area remains somewhat suspicious/indeterminate. When including both abnormal areas of enhancement, total abnormal enhancement would span 6.4 cm. Patient has surgical/oncologic follow-up. 3. Marked background parenchymal enhancement limits sensitivity of MRI. 4. No lymphadenopathy. MRI guided biopsy with clip placement of LEFT breast lesion at 11:00 3 cm from the nipple on 11/06/2023. Pathology: FINAL DIAGNOSIS Left breast, 11:00, 3cmfn, 0.9cm x 0.9cm x 0.6cm mass, ultrasound-guided core biopsy, with Q clip placement: - Focal atypical lobular hyperplasia (ALH), columnar cell change, and dense stromal fibrosis. Scheduled for repeat :MRI biopsy with clip placement 11/19. She lives in [place]. . Has close friend. Fully capable of ADLs and IADLs. Cares for home and yard. Has been diagnosed with anemia in the past. Most recent CBC was 2 months ago indicating moderate anemia. Borderline microcytic indexes. Underwent left breast excisional biopsy along with right mastectomy and sentinel lymph node biopsy on 12/18/2023. Pathology: 1. Left breast, oriented excision (A) - Lobular carcinoma in situ (LCIS), classic type. -Biopsy site changes are identified. 2. Right axillary lymph node, excision (B) - One lymph node, negative for metastatic carcinoma (0/1). 3. 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 -Biopsy site changes are identified. -The surrounding breast tissue shows atypical ductal hyperplasia (ADH), fibrocystic changes and microcalcifications. PJM/pjeddie/12/21/23 Diagnosis Comment CCM Select slides have been reviewed in consultation with Dr. Walters, of the [facility] breast pathology department, who concurs. Block for additional Biomarkers/Molecular studies CCM C14 Synoptic Report INVASIVE CARCINOMA OF THE BREAST: Resection 8th Edition - Protocol posted: 09/13/2023INVASIVE CARCINOMA OF THE BREAST: RESECTION - B, C SPECIMEN Procedure Total mastectomy Specimen Laterality Right TUMOR Histologic Type Invasive carcinoma with mixed ductal and lobular features Histologic Grade ([place] Histologic Score) Glandular (Acinar) / Tubular Differentiation Score 2 Nuclear Pleomorphism Score 2 Mitotic Rate Score 1 Overall Grade Grade 1 (scores of 3, 4 or 5) Tumor Size Greatest dimension of largest invasive focus (Millimeters): 7 mm Tumor Focality Multiple foci of invasive carcinoma Ductal Carcinoma In Situ (DCIS) Not identified Lymphatic and / or Vascular Invasion Not identified Treatment Effect in the Breast No known presurgical therapy MARGINS Margin Status for Invasive Carcinoma All margins negative for invasive carcinoma Distance from Invasive Carcinoma to Closest Margin Greater than: 2 mm REGIONAL LYMPH NODES Regional Lymph Node Status All regional lymph nodes negative for tumor Total Number of Lymph Nodes Examined (sentinel and non-sentinel) 1 Number of [place] Nodes Examined 1 pTNM CLASSIFICATION (AJCC 8th Edition) Reporting of pT, pN, and (when applicable) pM categories is based on information available to the pathologist at the time the report is issued. As per the AJCC (Chapter 1, 8th Ed.) it is the managing physician's responsibility to establish the final pathologic stage based upon all pertinent information, including but potentially not limited to this pathology report. pT Category pT1b T Suffix (m) pN Category pN not assigned (no nodes submitted or found) N Suffix (sn) Current therapy:Arimidex Began 2023 No new concerns today. Appetite:Good. Energy level:Very good. I volunteer a lot. Denies fevers or recent illness. Resp:denies cough or sob Cardiac:denies chest pain/palpitations GI:denies abd pain, n/v, moving bowels regularly :denies dysuria/hematuria Extrem:denies new pain Endo:+hot flashes Probably about three per day. they do not take pt. at night Neuro:denies symptoms of neuropathy Skin:denies rashes Heme:denies bleeding The ROS is otherwise negative. Past medical history, appointments, medications, allergies reviewed. No changes. EXAM: BP 113/65 Pulse 92 Temp 36.9 C (98.5 F) (Temporal) Wt 61.9 kg (136 lb 7.4 oz) SpO2 98% BMI 26.65 kg/m APPEARANCE Well appearing, alert, in no acute distress, well-hydrated, well nourished. HEART RRR with normal S1 and S2, no murmurs LUNG clear to auscultation BREAST FEMALE R mastectomy scar, no nodule/skin changes LYMPH NODES No cervical lymphadenopathy, No supraclavicular lymphadenopathy, and No axillary lymphadenopathy. ABDOMEN bowel sounds normoactive, soft, non-tender EXTREMITIES No edema NEURO Awake, alert and oriented x 3, Normal gait, and No involuntary motions. SKIN Skin color, texture, turgor normal, no suspicious rashes or lesions ASSESSMENT/PLAN: 1. Malignant neoplasm of upper-outer quadrant of right breast in female, estrogen receptor positive (HCC) - ICD9: 174.4, V86.0, ICD10: C50.411, Z17.[address] 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 -LCIS, classic type excised left breast. -Reviewed rationale for AI therapy and bone health issues. -Normal bone density in 07/2023. Plan: -Rx anastrozole. -Dental clearance form provided. -OV in about 6 weeks for SCP. -Begin Zometa in about 6 months. - No concerning findings on exam. - Tolerating arimidex well. - Reviewed SCP with pt. Copies given. - Discussed follow up plan. - Continue arimidex. - Discussed zometa. - Dental clearance form given. Once received will plan to start zometa every 6 months with BMP for a total of 6 doses pending tolerance. - L mammogram as scheduled today. - Follow up in 6 months. - Pt. aware to call office with any questions/concerns. The patient indicates understanding of these issues and agrees with the plan. All documentation from previous visit of 01/02/24-Dr. Ignacio was copied and pasted, documentation has been reviewed and edited as necessary for today's visit. Susan Carrero APRN.BASKET SORTER documented in this encounter [facility] 06-25-2024 Note Patient Outreach (IN TMMN) ALBERTO RODRIGUEZ ([id number]) 1935 F Date Time Provider Department 06/25/24 RAMANDEEP ALVAREZ During your visit today, we recorded the following information about you: Allergies As of Date: 06/25/2024 Noted Allergy Reaction VICODIN (HYDROCODONE-ACETAMINOPHE*04/27/19 10 5 - Intolerance Date Reviewed: 04/04/2024 Reviewed by: Nuris Alegria RN - Fully Assessed Visit Diagnosis:Pure hypercholesterolemia [E78.00] Order(s):LIPID PANEL, FASTING [SQLIPB] Order #: [id number] FUTURE Prescriptions as of 06/28/2024 - gabapentin (NEURONTIN) 100 mg capsule Take 1 capsule by mouth daily at bedtime for 180 days. - acetaminophen (TYLENOL) 325 mg tablet Take 650 mg by mouth every 6 hours as needed. - anastrozole (ARIMIDEX) 1 mg tablet Take 1 tablet by mouth once daily. - losartan (COZAAR) 25 mg tablet Take 1 tablet by mouth once daily. - pravastatin (PRAVACHOL) 40 mg tablet Take 1 tablet by mouth daily at bedtime. - amLODIPine (NORVASC) 2.5 mg tablet Take 1 tablet by mouth once daily. - nortriptyline (PAMELOR) 50 mg capsule TAKE ONE CAPSULE BY MOUTH EVERY DAY AT BEDTIME - potassium chloride (K-TAB) 10 mEq tablet Take 1 tablet by mouth daily with breakfast. On days she takes lasix - furosemide (LASIX) 20 mg tablet take 1 tablet by mouth every other day - >Zippered Compression Knee High 30-40 mm custom CUSTOM MEASURE FOR KNEE HIGH HO COMPRESSION STOCKINGS, 30-40 MM, WITH ZIPPERS PLEASE. IF UNABLE, PLEASE REFER TO [facility] AT [facility]. DX: EDEMA - multivitamin tablet Take 1 tablet by mouth once daily. - Aspirin 81 mg Tab Take 81 mg by mouth once daily. - cholecalciferol (VITAMIN D3) 50 mcg (2,000 unit) tablet Take by mouth once daily. 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] 05/02/2005 ESOPHAGEAL REFLUX [K21.9] 05/02/2005 PAIN ABDOMEN( Right Upper Quadrant) [R10.11] 07/16/2007 GASTRITIS ANTRAL( W/O Hemorrhage) [K29.60] 07/27/2007 ACUTE GASTRITIS W/O HEMORRHAGE [K29.00] 07/27/2007 CHOLECYSTITIS SEE ALSO GALLBLADDER CHRONIC [K*08/13/2007 Dysuria [R30.0] 08/16/2007 06/27/2014 MULTINODULAR GOITER (NONTOXIC) [E04.2] 10/30/2008 Hot flash, menopausal [N95.1] 06/21/2011 06/27/2014 PHN (postherpetic neuralgia) [B02.29] 02/06/2012 Postherpetic neuralgia [B02.29] 06/14/2012 06/27/2014 Pinched nerve in neck [G58.9] 01/31/2018 Hot flashes [R23.2] 09/21/2018 Essential hypertension [I10] 04/14/2022 Pain of left hip joint [M25.552] 07/19/2022 Murmur, cardiac [R01.1] 08/25/2016 History of cerebral infarction [Z86.73] 12/08/2023 VHD (valvular heart disease) [I38] 12/15/2023 Malignant neoplasm of right breast in female, e*01/09/2024 Atherosclerosis of aorta (HCC) [I70.0] 01/09/2024 Stage 3a chronic kidney disease (HCC) [N18.31] 01/09/2024 Diastolic dysfunction [I51.89] 01/09/2024 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] 01/09/2024 Encounter Status:Closed by ZAINA LAY on 06/28/24 [facility] 04-04-2024 Telephone encounter Note Message left for patient re: mammogram Able to schedule same day as her follow-up with Susan Carrero CNP on 07/04 Kimberly Chavez PA-C April 04, 2024 1:10 PM [facility] Work Phone: 04-04-2024 Miscellaneous Notes Message left for patient re: mammogram Able to schedule same day as her follow-up with Susan Carrero CNP on 07/04 Kimberly Chavez PA-C April 04, 2024 1:10 PM documented in this encounter [facility] 04-04-2024 History of Present illness Narrative REASON FOR TODAY'S VISIT: Last seen December 2023 at her post op visit Returns today for scheduled interval exam and check She notes no breast related complaints today. No SEs from the anastrozole HISTORY: 12/18/23: RIGHT- SM/SLN and left excisional biopsy RIGHT: pT1bNx ER 99 [place] 99 Her 2 FISH negative LEFT c/w LCIS December 2023 Initiated anastrozole (Masci) Plan to begin Zometa approx June 2024 REVIEW OF SYSTEMS 14 point ROS is negative except for that which is stated above. EXAMINATION: The sensitive examination was discussed with the Patient or Patient's Authorized Salvage Supervisor. As applicable, any other physician, advance practice provider, medical student, or other health professional student that will be observing or involved in the sensitive examination for educational or training purposes was discussed with the Patient or Authorized Salvage Supervisor. The Patient or Authorized Salvage Supervisor has agreed to proceed with the sensitive examination. (Sensitive examination includes inspection and/or palpation of the breasts, pelvis, prostate and anorectal regions) There is no evidence of recurrence on the Right. well healed mastectomy scar no concerning masses left breast: well healed 12o'c excisional biopsy scar no concerning masses There is no lymphadenopathy. BREAST IMAGING: Due for LEFT mammogram July 2024 IMPRESSION./PLAN: new diagnosis of RIGHT breast cancer presenting as suspicious extent of calcifications on July 2023 screen diagnosis eventually made by 2 site stereo biopsy in September cTmic N0 ER/[place] 99 Her2 FISH negative the anterior(RA) biopsy: [facility] MRI prompted biopsy LEFT c/w ALH 12/18/23: RIGHT- SM/SLN and left excisional biopsy RIGHT: pT1bNx ER 99 [place] 99 Her 2 FISH negative LEFT c/w LCIS doing well. Tolerating endocrine therapy without issue Normal CBE today She will continue to have her active surveillance and survivorship visits through medical oncology - next visit scheduled with Michele Carrero. Will coordinate her imaging same day if possible She is encouraged to call with any future concerns I spent a total of 25 minutes on the date of the service which included preparing to see the patient, [id number] patient care, completing clinical documentation, obtaining and/or reviewing separately obtained history, performing a medically appropriate examination, counseling and educating the patient/family/caregiver, ordering medications, tests, or procedures, communicating with other HCPs (not separately reported), independently interpreting results (not separately reported), communicating results to the patient/family/caregiver, and care coordination (not separately reported). Loy Kwon MD documented in this encounter [facility] 04-04-2024 Note HNO ID: [id number] Author: LOY KWON MD Service: ? Author Type: Physician Type: Progress Notes Filed: 04/04/2024 13:00 Note Text: REASON FOR TODAY'S VISIT: Last seen December 2023 at her post op visit Returns today for scheduled interval exam and check She notes no breast related complaints today. No SEs from the anastrozole HISTORY: 12/18/23: RIGHT- SM/SLN and left excisional biopsy RIGHT: pT1bNx ER 99 [place] 99 Her 2 FISH negative LEFT c/w LCIS December 2023 Initiated anastrozole (Masci) Plan to begin Zometa approx June 2024 REVIEW OF SYSTEMS 14 point ROS is negative except for that which is stated above. EXAMINATION: The sensitive examination was discussed with the Patient or Patient's Authorized Salvage Supervisor. As applicable, any other physician, advance practice provider, medical student, or other health professional student that will be observing or involved in the sensitive examination for educational or training purposes was discussed with the Patient or Authorized Salvage Supervisor. The Patient or Authorized Salvage Supervisor has agreed to proceed with the sensitive examination. (Sensitive examination includes inspection and/or palpation of the breasts, pelvis, prostate and anorectal regions) There is no evidence of recurrence on the Right. well healed mastectomy scar no concerning masses left breast: well healed 12o'c excisional biopsy scar no concerning masses There is no lymphadenopathy. BREAST IMAGING: Due for LEFT mammogram July 2024 IMPRESSION./PLAN: new diagnosis of RIGHT breast cancer presenting as suspicious extent of calcifications on July 2023 screen diagnosis eventually made by 2 site stereo biopsy in September cTmic N0 ER/[place] 99 Her2 FISH negative the anterior(RA) biopsy: [facility] MRI prompted biopsy LEFT c/w ALH 12/18/23: RIGHT- SM/SLN and left excisional biopsy RIGHT: pT1bNx ER 99 [place] 99 Her 2 FISH negative LEFT c/w LCIS doing well. Tolerating endocrine therapy without issue Normal CBE today She will continue to have her active surveillance and survivorship visits through medical oncology - next visit scheduled with Michele Carrero. Will coordinate her imaging same day if possible She is encouraged to call with any future concerns I spent a total of 25 minutes on the date of the service which included preparing to see the patient, [id number] patient care, completing clinical documentation, obtaining and/or reviewing separately obtained history, performing a medically appropriate examination, counseling and educating the patient/family/caregiver, ordering medications, tests, or procedures, communicating with other HCPs (not separately reported), independently interpreting results (not separately reported), communicating results to the patient/family/caregiver, and care coordination (not separately reported). Loy Kwon MD [facility] 02-05-2024 Telephone encounter Note Prescription Refill Information The patient has been identified by name and date of : Yes Caregiver verified no other encounters exist for this prescription request: Yes Caregiver confirmed with patient/requestor that no other refills are due, in the near future, with this provider at this time: Yes The last office visit in the department: 01-09-24 Does the patient have a future office visit with this provider/department: Yes 4-15-25 Requested Prescriptions Pending Prescriptions Disp Refills gabapentin (NEURONTIN) 100 mg capsule 90 capsule 1 Sig: Take 1 capsule by mouth daily at bedtime for 180 days. Sun Haque February 05, 2024 1:45 PM [facility] 02-05-2024 Miscellaneous Notes Prescription Refill Information The patient has been identified by name and date of : Yes Caregiver verified no other encounters exist for this prescription request: Yes Caregiver confirmed with patient/requestor that no other refills are due, in the near future, with this provider at this time: Yes The last office visit in the department: 01-09-24 Does the patient have a future office visit with this provider/department: Yes 07-09-24 Requested Prescriptions Pending Prescriptions Disp Refills gabapentin (NEURONTIN) 100 mg capsule 90 capsule 1 Sig: Take 1 capsule by mouth daily at bedtime for 180 days. Sun Haque February 05, 2024 1:45 PM documented in this encounter [facility] 01-09-2024 History of Present illness Narrative Images from the original note were not included. Alberto Rodriguez is a 88 year old female here for a Medicare wellness visit. Medicare Health Risk Assessment General Health good Exercise: Minutes/Day 15 to 30 mins Exercise: Days/Week Daily Alcohol: Daily Use No Alcohol: Drinks/Day No Alcohol: 6 or more drinks No Feel off balance No Concerns: Teeth/Dentures No Concerns: Sexual function No Troubled by feelings No Frequency: Eating healthy diet Yes- eats a lot of fruits and vegetables, chicken, beef and shrimp ADLs requiring help No Safety precautions in home/vehicle NO Smoke, vape, chews tobacco No Difficulty hearing NoNo Difficulty seeing Current Providers Specialists: I have reviewed specialist-related care of the patient in the medical record. Medical/Family history review Reviewed and updated problem list, medical/surgical/family/social history, medications, and allergies. Opioid use review Opioid Medications (last 90 days) 12/18/2023 12/19/2023 03:03 12/21/2023 23:59 Opioid Medications hydrocodone/acetaminophen Admitted: Dec 17 - Dec 18, 2023 1 tablet q 8 H PRN ORAL 1 tablet q 8 H PRN ORAL -Rx End hydromorphone HCl, hydromorphone HCl/PF 0.2 mg, INTRAVENOUS, EVERY 10 MINUTES NEEDED, 4 doses, Starting on Mon12/18/23 at 1029, Until Mon12/19/23 at 0303, SECOND LINE THERAPY for moderate or severe pain Hold for respiratory rate less than 14 Caution: IV hydromorphone is approximately 8 times MORE POTENT than IV morphine. For example, hydromorphone 1mg IV = morphine 8mg IV Recovery or Phase I (only) 0.2 mg, INTRAVENOUS, EVERY 10 MINUTES NEEDED, 4 doses, Starting on Mon12/18/23 at 1029, Until Mon12/19/23 at 0303, SECOND LINE THERAPY for moderate or severe pain Hold for respiratory rate less than 14 Caution: IV hydromorphone is approximately 8 times MORE POTENT than IV morphine. For example, hydromorphone 1mg IV = morphine 8mg IV Recovery or Phase I (only)-Discontinued (AUTO DC AT D) hydromorphone HCl INTRAVENOUS, NEEDED, Starting on Mon12/18/23 at 0950, Until Mon12/18/23 at 1016, Anesthesia Intraprocedure -Discontinued (Disc in Anes) oxycodone HCl 5 mg, ORAL, POST-OP PRN, 1 dose, Starting on Mon12/18/23 at 1029, Until Mon12/18/23 at 1140, Moderate Pain (4-6) - Enteral, Recovery or Phase I (only) -Completed Details Outpatient prescription Hospital medication Anxiety/Depression screening Recommendation: no further intervention at this time Cognitive screening Mini Cog Score: 5 Cognitive screening reviewed and No further action needed (score 3-5). Functional Observation Was the patient's Timed Up & Go test unsteady or >= 12 seconds? No Advance Care Planning Surrogate decision maker and/or advance care plan documented Measurements BP 122/72 Pulse 89 Resp 16 Ht 152.4 cm (5') Wt 59 kg (130 lb 1.1 oz) BMI 25.40 kg/m Vision Screening: Follows with optometry/ophthalmology Assessment/Plan Medicare annual wellness visit, subsequent (Z00.00) - Counseled on healthy diet and regular exercise - Fall avoidance information provided - Personalized prevention plan providedReason for Visit Patient presents with: Yearly Exam Alberto Rodriguez is a 88 year old female who presents here today for Above Complaints.. Health Maintenance Covid-19 Vaccine( season) Influenza Vaccine(1) RYAN Resendiz is a very pleasant 88-year-old woman with a past medical history of hypertension, hyper cholesterolemia, postherpetic neuralgia, chronic venous insufficiency who was recently diagnosed with breast cancer. The right breast had lobular hyperplasia which was atypical, ductal hyperplasia apocrine metaplasia, microinvasive cancer. Since she last saw me for the poison armin, that has cleared up. Had surgery, is healing well, except some pain where the lymph node was taken. She Is back to doing every thing including entertaining her family. She is on the Arimidex and she is doing fairly well, it has not bothered her too much as of now. She used to be on estrogen from hot flashes but for obvious reasons we cannot give her the medication and notes not too problematic hot flashes at this time. Her bone density is normal . For sleeping she is still taking the pamelor and her cognition is good still, she scored a 5/5 for the cognition part. HTN: BP controlled today. Checks BP at home. Compliant with medications. Denies any chest pain, palpitations, SOB, swelling in the feet. Careful with diet to avoid salt, trying to eat more fruits and vegetables, exercises regularly HPL: Reviewed test results with patient , takes medications regularly , does not report side effects. Conscious to avoid red meats, full fat dairy and its by products. Exercising 3 to 5 times a week. No problem-specific Assessment & Plan notes found for this encounter. 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 COLONOSCOPY FLX DX W/COLLJ SPEC WHEN PFRMD 07/18/2003 cecal lipoma, otherwise normal COLONOSCOPY FLX DX W/COLLJ SPEC WHEN PFRMD 06/27/2017 Colonoscopy EGD TRANSORAL BIOPSY SINGLE/MULTIPLE 07/27/2007 Doyle-gastritis LAPS SURG CHOLECYSTECTOMY W/CHOLANGIOGRAPHY 08/02/2007 RPR 1ST INCAL/VNT HERNIA INCARCERATED 08/02/2007 TOTAL ABDOMINAL HYSTERECT W/WO RMVL TUBE OVARY Hysterectomy, JAGRUTI FAMILY HISTORY Problem Relation Age of Onset Heart disease Mother Asthma Father Breast Cancer Sister Breast Cancer Sister Leukemia Sister Heart Brother Stroke Brother Diabetes Maternal Grandmother Colon Cancer Paternal Grandmother Social History Tobacco Use Smoking status: Never Smokeless tobacco: Never Vaping Use Vaping status: Never Used Substance Use Topics Alcohol use: Yes Comment: occasionally wine Drug use: No Past medical history, appointments, medications, allergies reviewed. Pertinent Lab/Diagnostic Studies are reviewed and discussed today Current Outpatient Medications: acetaminophen (TYLENOL) 325 mg tablet anastrozole (ARIMIDEX) 1 mg tablet losartan (COZAAR) 25 mg tablet pravastatin (PRAVACHOL) 40 mg tablet amLODIPine (NORVASC) 2.5 mg tablet nortriptyline (PAMELOR) 50 mg capsule gabapentin (NEURONTIN) 100 mg capsule potassium chloride (K-TAB) 10 mEq tablet furosemide (LASIX) 20 mg tablet >Zippered Compression Knee High 30-40 mm custom multivitamin tablet Aspirin 81 mg Tab cholecalciferol (VITAMIN D3) 50 mcg (2,000 unit) tablet CALCIUM 500 MG TAB naproxen sodium(ALEVE 220 MG TAB) Review of Systems CONSTITUTIONAL: No fevers, chills night sweats, unintended weight loss CARDIOVASCULAR: No chest pain, dyspnea, palpitations, orthopnea, PND, ankle edema. PULM: No dyspnea, unexplained cough. GI: No dysphagia/odynophagia, problematic reflux, constipation, diarrhea, changes in stool habits, hematochezia, melena. : No new urinary complaints, including dysuria, gross hematuria or pyuria. NEURO: No new balance problems, peripheral weakness/paresthesias or numbness of concern. Physical Exam BP 122/72 Pulse 89 Resp 16 Ht 152.4 cm (5') Wt 59 kg (130 lb 1.1 oz) BMI 25.40 kg/m General appearance: Well appearing, alert, in no acute distress, well nourished. Skin: Ocular papular rash in the left breast involving almost half of the lateral breast. It is mildly raised erythematous. Head: Normocephalic, no masses, lesions, tenderness or abnormalities Eyes: Anicteric sclera. Pupils are equally round and reactive to light. Extraocular movements are intact. Lungs: Lungs clear to auscultation. No wheezing, rhonchi, rales Heart: RRR without murmur, gallop, or rubs. Extremities: No deformities, edema, skin discoloration, clubbing or cyanosis. Good capillary refill. ASSESSMENT/PLAN: 1. Medicare annual wellness visit, subsequent - ICD9: V70.0, ICD10: Z00.00 (primary diagnosis) - Counseled on healthy diet and regular exercise 2. Malignant neoplasm of right breast in female, estrogen receptor positive, unspecified site of breast (HCC) - ICD9: 174.9, V86.0, ICD10: C50.911, Z17.0 See hpi, she is doing well 3. Encounter for immunization - ICD9: V03.89, ICD10: Z23 - INFLUENZA VACCINE, PRSV FREE, AGE 65+ YR, HIGH DOSE, TRIVALENT (FLUZONE HIGH-DOSE) - Anevia COVID-19 VACCINE AGE 12+ YR (COMIRNATY) 4. Atherosclerosis of aorta (HCC) - ICD9: 440.0, ICD10: I70.0 On statin and bp are well controlled. Normal bone density 5. Stage 3a chronic kidney disease (HCC) - ICD9: 585.3, ICD10: N18.31 Recent gfr was normal 6. Essential hypertension - ICD9: 401.9, ICD10: I10 - Controlled - Recommend home blood pressure monitoring, to bring results to next visit - Encouraged sodium restriction, DASH or Mediterranean diet - Recommend regular aerobic exercise She has an aortic murmur, likely aortic stenosis . Ramandeep Alvarez MD documented in this encounter [facility] 01-09-2024 Note HNO ID: [id number] Author: RAMANDEEP ALVAREZ MD Service: ? Author Type: Physician Type: Progress Notes Filed: 01/09/2024 12:46 Note Text: Alberto Rodriguez is a 88 year old female here for a Medicare wellness visit. Medicare Health Risk Assessment General Health good Exercise: Minutes/Day 15 to 30 mins Exercise: Days/Week Daily Alcohol: Daily Use No Alcohol: Drinks/Day No Alcohol: 6 or more drinks No Feel off balance No Concerns: Teeth/Dentures No Concerns: Sexual function No Troubled by feelings No Frequency: Eating healthy diet Yes- eats a lot of fruits and vegetables, chicken, beef and shrimp ADLs requiring help No Safety precautions in home/vehicle NO Smoke, vape, chews tobacco No Difficulty hearing NoNo Difficulty seeing Current Providers Specialists: I have reviewed specialist-related care of the patient in the medical record. Medical/Family history review Reviewed and updated problem list, medical/surgical/family/social history, medications, and allergies. Opioid use review Opioid Medications (last 90 days) 12/18/2023 12/19/2023 03:03 12/21/2023 23:59 Opioid Medications hydrocodone/acetaminophen Admitted: Dec 17 - Dec 18, 2023 1 tablet q 8 H PRN ORAL 1 tablet q 8 H PRN ORAL -Rx End hydromorphone HCl, hydromorphone HCl/PF 0.2 mg, INTRAVENOUS, EVERY 10 MINUTES NEEDED, 4 doses, Starting on Mon12/18/23 at 1029, Until Mon12/19/23 at 0303, SECOND LINE THERAPY for moderate or severe pain Hold for respiratory rate less than 14 Caution: IV hydromorphone is approximately 8 times MORE POTENT than IV morphine. For example, hydromorphone 1mg IV = morphine 8mg IV Recovery or Phase I (only) 0.2 mg, INTRAVENOUS, EVERY 10 MINUTES NEEDED, 4 doses, Starting on Mon12/18/23 at 1029, Until Mon12/19/23 at 0303, SECOND LINE THERAPY for moderate or severe pain Hold for respiratory rate less than 14 Caution: IV hydromorphone is approximately 8 times MORE POTENT than IV morphine. For example, hydromorphone 1mg IV = morphine 8mg IV Recovery or Phase I (only)-Discontinued (AUTO DC AT D) hydromorphone HCl INTRAVENOUS, NEEDED, Starting on Mon12/18/23 at 0950, Until Mon12/18/23 at 1016, Anesthesia Intraprocedure -Discontinued (Disc in Anes) oxycodone HCl 5 mg, ORAL, POST-OP PRN, 1 dose, Starting on Mon12/18/23 at 1029, Until Mon12/18/23 at 1140, Moderate Pain (4-6) - Enteral, Recovery or Phase I (only) -Completed Details Outpatient prescription Hospital medication Anxiety/Depression screening Recommendation: no further intervention at this time Cognitive screening Mini Cog Score: 5 Cognitive screening reviewed and No further action needed (score 3-5). Functional Observation Was the patient's Timed Up AND Go test unsteady or >= 12 seconds? No Advance Care Planning Surrogate decision maker and/or advance care plan documented Measurements BP 122/72 Pulse 89 Resp 16 Ht 152.4 cm (5') Wt 59 kg (130 lb 1.1 oz) BMI 25.40 kg/m? Vision Screening: Follows with optometry/ophthalmology Assessment/Plan Medicare annual wellness visit, subsequent (Z00.00) - Counseled on healthy diet and regular exercise - Fall avoidance information provided - Personalized prevention plan providedReason for Visit Patient presents with: Yearly Exam Alberto Rodriguez is a 88 year old female who presents here today for Above Complaints.. Health Maintenance Covid-19 Vaccine( season) Influenza Vaccine(1) RYAN Resendiz is a very pleasant 88-year-old woman with a past medical history of hypertension, hyper cholesterolemia, postherpetic neuralgia, chronic venous insufficiency who was recently diagnosed with breast cancer. The right breast had lobular hyperplasia which was atypical, ductal hyperplasia apocrine metaplasia, microinvasive cancer. Since she last saw me for the poison armin, that has cleared up. Had surgery, is healing well, except some pain where the lymph node was taken. She Is back to doing every thing including entertaining her family. She is on the Arimidex and she is doing fairly well, it has not bothered her too much as of now. She used to be on estrogen from hot flashes but for obvious reasons we cannot give her the medication and notes not too problematic hot flashes at this time. Her bone density is normal . For sleeping she is still taking the pamelor and her cognition is good still, she scored a 5/5 for the cognition part. HTN: BP controlled today. Checks BP at home. Compliant with medications. Denies any chest pain, palpitations, SOB, swelling in the feet. Careful with diet to avoid salt, trying to eat more fruits and vegetables, exercises regularly HPL: Reviewed test results with patient , takes medications regularly , does not report side effects. Conscious to avoid red meats, full fat dairy and its by products. Exercising 3 to 5 times a week. No problem-specific Assessment AND Plan notes found for this encounter. (more content not included)... [facility] 01-02-2024 Note HNO ID: [id number] Author: LANEY IGNACIO, DO Service: ? Author Type: Physician Type: Progress Notes Filed: 01/02/2024 10:06 Note Text: Consulted for breast cancer. The impression and plan will be communicated by way of the shared electronic record. HPI: The patient is an 88-year-old female with a past medical history as outlined below. Stereotactic right breast biopsy 10/04/2023. Pathology: Right breast, anterior, calcifications, stereotactic-guided core biopsy, with tophat clip placement (A): - Atypical lobular hyperplasia (ALH). - Fibrocystic changes, including usual ductal hyperplasia (UDH), dense stromal fibrosis, cysts, and apocrine metaplasia, and pseudoangiomatous stromal hyperplasia (PASH). - Microcalcifications in non-neoplastic breast epithelium. - Please see Comment I. 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 - Microcalcifications in lobular neoplasia and non-neoplastic breast epithelium.' Positive (greater than 10%) ER % staining 99 Estrogen Receptor (Staining Intensity) Strong Estrogen Receptor Internal Control Present and Stained as Expected Estrogen Receptor External Control Present and Stained as Expected W[place] status Positive (greater than or equal to 1%) WY % staining 99 Progesterone Receptor (Staining Intensity) Strong Progesterone Receptor Internal Control Present and Stained as Expected Progesterone Receptor External Control Present and Stained as Expected HER2 IHC Status Equivocal for HER2 Overexpression HER2 IHC Score 2+ Tumor Type Primary Invasive Breast Carcinoma Breast Tumor Grade Not Graded INTERPRETATION: NEGATIVE for HER2 (ERBB2) GENE AMPLIFICATION Ultrasound right axilla 10/19/2023 showed no evidence of adenopathy. Multiple various sized nodes were observed but had benign characteristics. MRI breasts 10/23/2023: IMPRESSION: SUSPICIOUS 1. 1.3 cm area of abnormal enhancement in the upper inner left breast, indeterminate for malignancy. Second look ultrasound is recommended to facilitate possible ultrasound guided biopsy. If not seen sonographically, an MRI guided biopsy would be recommended. 2. 3.8 cm area of abnormal combined mass and nonmasslike enhancement with mixed washout and persistent enhancement kinetics in the 8-10:00 right breast, at site of biopsy-proven malignancy. Additional 2.4 cm area of nonmasslike enhancement in the retroareolar right breast with adjacent biopsy marking clip demonstrating atypical lobular hyperplasia; this area remains somewhat suspicious/indeterminate. When including both abnormal areas of enhancement, total abnormal enhancement would span 6.4 cm. Patient has surgical/oncologic follow-up. 3. Marked background parenchymal enhancement limits sensitivity of MRI. 4. No lymphadenopathy. MRI guided biopsy with clip placement of LEFT breast lesion at 11:00 3 cm from the nipple on 11/06/2023. Pathology: FINAL DIAGNOSIS Left breast, 11:00, 3cmfn, 0.9cm x 0.9cm x 0.6cm mass, ultrasound-guided core biopsy, with Q clip placement: - Focal atypical lobular hyperplasia (ALH), columnar cell change, and dense stromal fibrosis. Scheduled for repeat :MRI biopsy with clip placement 11/19. She lives in [place]. . Has close friend. Fully capable of ADLs and IADLs. Cares for home and yard. Has been diagnosed with anemia in the past. Most recent CBC was 2 months ago indicating moderate anemia. Borderline microcytic indexes. Presents for ongoing oncologic management. Interim history: Underwent left breast excisional biopsy along with right mastectomy and sentinel lymph node biopsy on 12/18/2023. Pathology: 1. Left breast, oriented excision (A) - Lobular carcinoma in situ (LCIS), classic type. -Biopsy site changes are identified. 2. Right axillary lymph node, excision (B) - One lymph node, negative for metastatic carcinoma (0/1). 3. 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 -Biopsy site changes are identified. -The surrounding breast tissue shows atypical ductal hyperplasia (ADH), fibrocystic changes and microcalcifications. PJM/pjm/12/21/23 Diagnosis Comment CCM Select slides have been reviewed in consultation with Dr. Walters, of the [facility] breast pathology department, who concurs. Block for additional Biomarkers/Molecular studies CCM C14 Synoptic Report INVASIVE CARCINOMA OF THE BREAST: Resection 8th Edition - Protocol posted: 09/13/2023INVASIVE CARCINOMA OF THE ABELINO (more content not included)... [facility] 01-02-2024 History of Present illness Narrative Consulted for breast cancer. The impression and plan will be communicated by way of the shared electronic record. HPI: The patient is an 88-year-old female with a past medical history as outlined below. Stereotactic right breast biopsy 10/04/2023. Pathology: Right breast, anterior, calcifications, stereotactic-guided core biopsy, with tophat clip placement (A): - Atypical lobular hyperplasia (ALH). - Fibrocystic changes, including usual ductal hyperplasia (UDH), dense stromal fibrosis, cysts, and apocrine metaplasia, and pseudoangiomatous stromal hyperplasia (PASH). - Microcalcifications in non-neoplastic breast epithelium. - Please see Comment I. 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 - Microcalcifications in lobular neoplasia and non-neoplastic breast epithelium.' Positive (greater than 10%) ER % staining 99 Estrogen Receptor (Staining Intensity) Strong Estrogen Receptor Internal Control Present and Stained as Expected Estrogen Receptor External Control Present and Stained as Expected WY status Positive (greater than or equal to 1%) WY % staining 99 Progesterone Receptor (Staining Intensity) Strong Progesterone Receptor Internal Control Present and Stained as Expected Progesterone Receptor External Control Present and Stained as Expected HER2 IHC Status Equivocal for HER2 Overexpression HER2 IHC Score 2+ Tumor Type Primary Invasive Breast Carcinoma Breast Tumor Grade Not Graded INTERPRETATION: NEGATIVE for HER2 (ERBB2) GENE AMPLIFICATION Ultrasound right axilla 10/19/2023 showed no evidence of adenopathy. Multiple various sized nodes were observed but had benign characteristics. MRI breasts 10/23/2023: IMPRESSION: SUSPICIOUS 1. 1.3 cm area of abnormal enhancement in the upper inner left breast, indeterminate for malignancy. Second look ultrasound is recommended to facilitate possible ultrasound guided biopsy. If not seen sonographically, an MRI guided biopsy would be recommended. 2. 3.8 cm area of abnormal combined mass and nonmasslike enhancement with mixed washout and persistent enhancement kinetics in the 8-10:00 right breast, at site of biopsy-proven malignancy. Additional 2.4 cm area of nonmasslike enhancement in the retroareolar right breast with adjacent biopsy marking clip demonstrating atypical lobular hyperplasia; this area remains somewhat suspicious/indeterminate. When including both abnormal areas of enhancement, total abnormal enhancement would span 6.4 cm. Patient has surgical/oncologic follow-up. 3. Marked background parenchymal enhancement limits sensitivity of MRI. 4. No lymphadenopathy. MRI guided biopsy with clip placement of LEFT breast lesion at 11:00 3 cm from the nipple on 11/06/2023. Pathology: FINAL DIAGNOSIS Left breast, 11:00, 3cmfn, 0.9cm x 0.9cm x 0.6cm mass, ultrasound-guided core biopsy, with Q clip placement: - Focal atypical lobular hyperplasia (ALH), columnar cell change, and dense stromal fibrosis. Scheduled for repeat :MRI biopsy with clip placement 11/19. She lives in [place]. . Has close friend. Fully capable of ADLs and IADLs. Cares for home and yard. Has been diagnosed with anemia in the past. Most recent CBC was 2 months ago indicating moderate anemia. Borderline microcytic indexes. Presents for ongoing oncologic management. Interim history: Underwent left breast excisional biopsy along with right mastectomy and sentinel lymph node biopsy on 12/18/2023. Pathology: 1. Left breast, oriented excision (A) - Lobular carcinoma in situ (LCIS), classic type. -Biopsy site changes are identified. 2. Right axillary lymph node, excision (B) - One lymph node, negative for metastatic carcinoma (0/1). 3. Right breast, mastectomy (C) - Invasive mammary carcinoma with mixed ductal and lobular features, [place] grade 1, spanning 0.7 cm, (see comment). 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 -Biopsy site changes are identified. -The surrounding breast tissue shows atypical ductal hyperplasia (ADH), fibrocystic changes and microcalcifications. PJM/pjm/12/21/23 Diagnosis Comment CCM Select slides have been reviewed in consultation with Dr. Walters, of the [facility] breast pathology department, who concurs. Block for additional Biomarkers/Molecular studies CCM C14 Synoptic Report INVASIVE CARCINOMA OF THE BREAST: Resection 8th Edition - Protocol posted: 09/13/2023INVASIVE CARCINOMA OF THE BREAST: RESECTION - B, C SPECIMEN Procedure Total mastectomy Specimen Laterality Right TUMOR Histologic Type Invasive carcinoma with mixed ductal and lobular features Histologic Grade ([place] Histologic Score) Glandular (Acinar) / Tubular Differentiation Score 2 Nuclear Pleomorphism Score 2 Mitotic Rate Score 1 Overall Grade Grade 1 (scores of 3, 4 or 5) Tumor Size Greatest dimension of largest invasive focus (Millimeters): 7 mm Tumor Focality Multiple foci of invasive carcinoma Ductal Carcinoma In Situ (DCIS) Not identified Lymphatic and / or Vascular Invasion Not identified Treatment Effect in the Breast No known presurgical therapy MARGINS Margin Status for Invasive Carcinoma All margins negative for invasive carcinoma Distance from Invasive Carcinoma to Closest Margin Greater than: 2 mm REGIONAL LYMPH NODES Regional Lymph Node Status All regional lymph nodes negative for tumor Total Number of Lymph Nodes Examined (sentinel and non-sentinel) 1 Number of [place] Nodes Examined 1 pTNM CLASSIFICATION (AJCC 8th Edition) Reporting of pT, pN, and (when applicable) pM categories is based on information available to the pathologist at the time the report is issued. As per the AJCC (Chapter 1, 8th Ed.) it is the managing physician's responsibility to establish the final pathologic stage based upon all pertinent information, including but potentially not limited to this pathology report. pT Category pT1b T Suffix (m) pN Category pN not assigned (no nodes submitted or found) N Suffix (sn) Healing well. No complaints. 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 COLONOSCOPY FLX DX W/COLLJ SPEC WHEN PFRMD 07/18/2003 cecal lipoma, otherwise normal COLONOSCOPY FLX DX W/COLLJ SPEC WHEN PFRMD 06/27/2017 Colonoscopy EGD TRANSORAL BIOPSY SINGLE/MULTIPLE 07/27/2007 Doyle-gastritis LAPS SURG CHOLECYSTECTOMY W/CHOLANGIOGRAPHY 08/02/2007 RPR 1ST INCAL/VNT HERNIA INCARCERATED 08/02/2007 TOTAL ABDOMINAL HYSTERECT W/WO RMVL TUBE OVARY Hysterectomy, JAGRUTI ALLERGIES Allergen Reactions Vicodin [Hydrocodon* Intolerance Current Outpatient Medications Medication Sig acetaminophen (TYLENOL) 325 mg tablet Take 650 mg by mouth every 6 hours as needed. losartan (COZAAR) 25 mg tablet Take 1 tablet by mouth once daily. pravastatin (PRAVACHOL) 40 mg tablet Take 1 tablet by mouth daily at bedtime. amLODIPine (NORVASC) 2.5 mg tablet Take 1 tablet by mouth once daily. nortriptyline (PAMELOR) 50 mg capsule TAKE ONE CAPSULE BY MOUTH EVERY DAY AT BEDTIME gabapentin (NEURONTIN) 100 mg capsule Take 1 capsule by mouth daily at bedtime for 180 days. potassium chloride (K-TAB) 10 mEq tablet Take 1 tablet by mouth daily with breakfast. On days she takes lasix furosemide (LASIX) 20 mg tablet take 1 tablet by mouth every other day multivitamin tablet Take 1 tablet by mouth once daily. Aspirin 81 mg Tab Take 81 mg by mouth once daily. cholecalciferol (VITAMIN D3) 50 mcg (2,000 unit) tablet Take by mouth once daily. CALCIUM 500 MG TAB Take 1500mg daily when she remebers >Zippered Compression Knee High 30-40 mm custom CUSTOM MEASURE FOR KNEE HIGH HO COMPRESSION STOCKINGS, 30-40 MM, WITH ZIPPERS PLEASE. IF UNABLE, PLEASE REFER TO [facility] AT [facility]. DX: EDEMA naproxen sodium(ALEVE 220 MG TAB) Take one(1) tablet twice daily.as necessary (Patient not taking: Reported on 01/02/2024) No current facility-administered medications for this visit. Social History Tobacco Use Smoking status: Never Smokeless tobacco: Never Vaping Use Vaping status: Never Used Substance Use Topics Alcohol use: Yes Comment: occasionally wine Drug use: No Family History Problem Relation Age of Onset Heart disease Mother Asthma Father Breast Cancer Sister Breast Cancer Sister Leukemia Sister Heart Brother Stroke Brother Diabetes Maternal Grandmother Colon Cancer Paternal Grandmother ROS: Constitutional: No fever. No drenching night sweats. Normal appetite. No unexplained weight loss. No significant fatigue. Neuro: No recent MARTIN, vertigo, dizziness or imbalance. No symptoms of sensory neuropathy. HEENT: No recent change in voice, vision or hearing. Resp: No cough, wheeze of hemoptysis. No shortness of breath at rest. No GARCIA. CVS: No exertional chest pain, PND or orthopnea. GI: No dysgeusia. No symptoms of stomatitis. No dysphagia or odynophagia. No reflux, n/v, change in bowel habits. No abdominal pain, bloating or distension. No black or bloody stools. : No dysuria or gross hematuria. No symptoms of bladder outlet obstruction. Endo: No hot flashes. No polyuria or polydipsia. No heat or cold intolerance. Musculoskeletal: No bone, back, joint and muscular pain. Derm: No current rash. No history of jaundice. No diffuse pruritis. Heme: No unusual bleeding and unexplained bruising. Psych: Normal mood. PHYSICAL EXAM: Vitals: Blood pressure 106/67, pulse 82, temperature 36.8 C (98.2 F), temperature source Temporal, weight 59.4 kg (131 lb), SpO2 99%. Well-appearing and in no acute distress. EYES: Sclerae are anicteric bilaterally. LYMPHATIC: There is no palpable cervical, supraclavicular or axillary adenopathy. RESPIRATORY: Inspiratory breath sounds are of normal intensity in all fleming. CARDIOVASCULAR: Rhythm is regular. BREAST: Not examined. ABDOMEN: The abdomen is nondistended. Extremities: No swelling or edema. SKIN: No jaundice. 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 -LCIS, classic type excised left breast. -Reviewed rationale for AI therapy and bone health issues. -Normal bone density in 07/2023. Plan: -Rx anastrozole. -Dental clearance form provided. -OV in about 6 weeks for SCP. -Begin Zometa in about 6 months. Portions of this documentation were copied and pasted from previous office visit notes in order to provide a cohesive continuity of the history. The note has been reviewed and edited and updated as necessary. I spent a total of 20 minutes on the date of the service which included preparing to see the patient, [id number] patient care, completing clinical documentation, obtaining and/or reviewing separately obtained history, counseling and educating the patient/family/caregiver, ordering medications, tests, or procedures, communicating with other HCPs (not separately reported), and communicating results to the patient/family/caregiver. Laney Ignacio DO documented in this encounter [facility] 12-27-2023 History of Present illness Narrative REASON FOR TODAY'S VISIT: Post - operative follow-up 12/18/23. she has not taken the PIYUSH off since surgery HISTORY: She returns today for a post-operative check s/p RIGHT- SM/SLN and left excisional biopsy . EXAMINATION: The left breast incision is healing well. RIGHT mastectomy scar healing well flaps are down and viable from the PIYUSH compression - she has a 4x4 cm fluid collection in the UOQ- this was - with palpation- broken down. CONOR removed without issue Patient's pathology report shows: LEFT Lobular carcinoma in situ (LCIS), classic type. RIGHT IMC G1 7mm extensive LCIS/ADH IMPRESSION/PLAN: new diagnosis of RIGHT breast cancer presenting as suspicious extent of calcifications on July 2023 screen diagnosis eventually made by 2 site stereo biopsy in September cTmic N0 ER/WY 99 Her2 FISH negative the anterior(RA) biopsy: ALH MRI prompted biopsy LEFT c/w ALH 12/18/23: RIGHT- SM/SLN and left excisional biopsy RIGHT: pT1bNx ER 99 WY 99 Her 2 FISH negative LEFT c/w LCIS discussed incision care and gentle ROM exercises Showed her massage techniques to target the UOQ area where fluid was retained from the constant PIYUSH pressure Reviewed pathology finding with patient. Copy of report given to patient for her records. She is established with Dr Ignacio- appointment info printed and given to patient Patient to RTC in 3 month(s). Loy Kwon MD documented in this encounter [facility] 12-27-2023 Note HNO ID: [id number] Author: LOY KWON MD Service: ? Author Type: Physician Type: Progress Notes Filed: 12/27/2023 12:40 Note Text: REASON FOR TODAY'S VISIT: Post - operative follow-up 12/18/23. she has not taken the PIYUSH off since surgery HISTORY: She returns today for a post-operative check s/p RIGHT- SM/SLN and left excisional biopsy . EXAMINATION: The left breast incision is healing well. RIGHT mastectomy scar healing well flaps are down and viable from the PIYUSH compression - she has a 4x4 cm fluid collection in the UOQ- this was - with palpation- broken down. CONOR removed without issue Patient's pathology report shows: LEFT Lobular carcinoma in situ (LCIS), classic type. RIGHT IMC G1 7mm extensive LCIS/ADH IMPRESSION/PLAN: new diagnosis of RIGHT breast cancer presenting as suspicious extent of calcifications on July 2023 screen diagnosis eventually made by 2 site stereo biopsy in September cTmic N0 ER/WY 99 Her2 FISH negative the anterior(RA) biopsy: ALH MRI prompted biopsy LEFT c/w ALH 12/18/23: RIGHT- SM/SLN and left excisional biopsy RIGHT: pT1bNx ER 99 WY 99 Her 2 FISH negative LEFT c/w LCIS discussed incision care and gentle ROM exercises Showed her massage techniques to target the UOQ area where fluid was retained from the constant PIYUSH pressure Reviewed pathology finding with patient. Copy of report given to patient for her records. She is established with Dr Ignacio- appointment info printed and given to patient Patient to RTC in 3 month(s). Loy Kwon MD [facility] 12-19-2023 Telephone encounter Note Returned call to Alberto Slight pain relieved with medication Drain output last night 40cc So far today 20 cc pale red Denies any redness, or bruising Denies any questions or concerns [facility] 12-19-2023 Miscellaneous Notes Returned call to Alberto Slight pain relieved with medication Drain output last night 40cc So far today 20 cc pale red Denies any redness, or bruising Denies any questions or concerns Post op check in. Left message to return call documented in this encounter [facility] 12-19-2023 Telephone encounter Note Post op check in. Left message to return call [facility] 12-18-2023 Nurse Note Extensive CONOR teaching completed with pt. And friend. Pt. Up to restroom to void with 1 RN assist. Pt. Steady on feet. Pt. Nauseated upon returning to bed. Cold washcloth applied to forehead and will call Dr. Graves for additional alexfrcruz order IV. [facility] 12-18-2023 Nurse Note Extensive CONOR teaching completed with pt. And friend. Pt. Up to restroom to void with 1 RN assist. Pt. Steady on feet. Pt. Nauseated upon returning to bed. Cold washcloth applied to forehead and will call Dr. Graves for additional alexfrcruz order IV. Dr. Kwon at bedside documented in this encounter [facility] 12-18-2023 Note HNO ID: [id number] Author: ANA OLVERA RN Service: ? Author Type: Registered Nurse Type: Nursing Progress Note Filed: 12/18/2023 11:46 Note Text: Dr. Kwon at bedside [facility] 12-18-[address] Kwon at bedside [facility] 12-18-2023 Note Formatting of this n ote might be different from the original. You received 1000 mg tylenol/acetaminophen at 7:30 am. Next dose due at 1:30 pm if needed for pain. The maximum amount of tylenol/acetaminophen that you may take in a 24 hour time period is 1962-0000 mg. Please leave the blue/green arm band on your wrist for the next 96 hours. It alerts all caregivers that you may come in contact with, that you received a local anesthetic medication today called exparel. If you would need to receive any further local anesthetic in the next 4 days, health managed care specialist would need to administer any further local anesthetic medication to you with extreme caution. Please be aware that your urine may blue to green in color for the next 1-2 days from the dye injection that you received. [facility] 12-18-2023 Miscellaneous Notes You received 1000 mg tylenol/acetaminophen at 7:30 am. Next dose due at 1:30 pm if needed for pain. The maximum amount of tylenol/acetaminophen that you may take in a 24 hour time period is 6946-9682 mg. Please leave the blue/green arm band on your wrist for the next 96 hours. It alerts all caregivers that you may come in contact with, that you received a local anesthetic medication today called exparel. If you would need to receive any further local anesthetic in the next 4 days, health managed care specialist would need to administer any further local anesthetic medication to you with extreme caution. Please be aware that your urine may blue to green in color for the next 1-2 days from the dye injection that you received. documented in this encounter [facility] 12-18-2023 Hospital Discharge instructions Jeff Livingston, CHARO.B[facility] SORTER - 12/18/2023 9:57 AM EDT Images from the original note were not included. [facility] DISCHARGE INSTRUCTIONS Patient Name: Alberto Rodriguez Date: 12/18/23 Procedure: Right breast mastectomy, right axillary sentinel lymph node biopsy and left breast excision of lesion FOLLOW THESE INSTRUCTIONS INDICATED BELOW: Medications: Do not take NSAIDs (Advil, Aleve, ibuprofen, naproxen) for 48 hours after surgery unless your surgical team tells you it is ok. Pain: If you rate your pain 1 to 3 on the numeric pain scale: Take 1000mg of acetaminophen or generic Tylenol every 8 hours. Do not take more than 3000mg in 24 hours. If you rate your pain 4 to 7 on the numeric pain scale: Take the prescription pain medication as directed. Use prescription pain medication only as long as needed to manage your pain. Do not take more than 3000mg of acetaminophen or generic Tylenol in 24 hours. If your prescription medication does not contain this then you may take 1000mg of acetaminophen or generic Tylenol every 8 hours. While taking prescription pain medications: Take a stool softener (Sennakot-S or Colace). Take 2 every day. Follow the instructions that come with the medication. Stop taking them if you have diarrhea. Do not drive, operate motorized vehicles or equipment. Do not drink beverages with alcohol. Do not sign legal documents or make important decisions. If you rate your pain 8 to 10 on the numeric pain scale: Contact your surgical team for more recommendations. You may also take 600mg of ibuprofen every 8 hours for your pain (after 48 hours from your surgery). If ibuprofen upsets your stomach, take it with food or with an antacid. Dressing/Wound Care: Steri Strips and surgical glue were used to cover your incision(s). Do not remove them. The surgical team will remove them or provide instructions for removal at your post-operative appointment. An PIYUSH wrap and surgical bra have been applied. You may remove the PIYUSH wrap tomorrow. Drain Care: A drainage tube was placed at the site of surgery to drain excess fluid. A very small amount of leakage around the drain site is normal. A dressing has been placed around your wound site. You do not need to change the dressing. If the dressing becomes very saturated and wet, then gently remove the dressing and place the drain gauze given to you over the area. Refer to the education sheet provided to you by the hospital nursing staff for details on how to care for your drain. When the amount of fluid emptied from your drain is less than 30 ml/day for 2 days in a row, it is ready for removal. Call your surgical service for an appointment to take the drain out as the appropriate time approaches. Activities: Look at your incision(s) every day to check for signs of infection. Report any concerns to your surgical team. Do not use heat or ice packs on the incision or breast area. You may shower the day after surgery unless your surgical team instructed you otherwise. Do not rub directly on your incision(s). Let water run over the incision(s) and pat it dry. Do not soak in a bathtub, or swim for 4 weeks after surgery. To promote comfort, wear a supportive, comfortable bra. For the first 5 to 7 days after surgery you should wear it all the time, even at night while sleeping. You can remove it to wash. No strenuous activity or lifting greater than 10 pounds for approximately 2 weeks after surgery. Gradually increase your activity as tolerated after that. Do not drive until 24 hours after you are no longer taking prescription pain medications and you feel comfortable driving safely. Call Your Surgical Team for Any of the Following Symptoms: A temperature of 100.4 degrees Fahrenheit (38 degrees Celsius) or greater. Redness or red streaks around your incision(s). Sudden or extreme pain, or swelling around your incision(s). Drainage, bleeding or a foul-smelling odor coming from the incision(s). The incision(s) starts to open. Follow up visit: Your follow up clinic visit with Dr. Nicole is scheduled as below: Appointments for Next 60 Days Date Time Provider Location Dept Phone 12/26/2023 10:00 AM JEFF VELASQUEZ [facility] [phone] 12/27/2023 10:00 AM LOY KWON [facility] [phone] 01/02/2024 9:10 AM LANEY IGNACIO [facility] [phone] 01/03/2024 1:30 PM JILLIAN DELGADO [facility] [phone] 01/09/2024 10:00 AM RAMANDEEP ALVAREZ [facility] [place] [phone] Contact Information: If you have any urgent concerns after normal business hours or on the weekend, please call and ask the blanker press operator to page your doctor's Breast Service [id number]. FOLLOW THESE INSTRUCTIONS REGARDING MEDICATION: Any medications that are normally used can be taken when home, except as advised in the previous instructions. Prescriptions given: Keflex and Goodwell OTHER INSTRUCTIONS: None Patient / Significant Other sign: Education Given by: REMEMBER: If you experience excessive pain, swelling, drainage from the incision, difficulty in breathing, excessive bleeding, persistent nausea, vomiting or fever, please contact: Dr. Nicole's office at phone number [phone] (8am to 5pm Monday through Monday) or Go to the nearest Emergency Room if you feel any signs or symptoms that warrant immediate medical attention such as chest pain unrelated to surgery or shortness of breath. FOLLOW THESE INSTRUCTIONS RELATED TO ANESTHESIA: 1. Do not drink alcoholic beverages including beer and wine for 24 hours. Alcohol enhances the effects of anesthesia and sedation. 2. Do not drive a motor vehicle, operate machinery or power tools for 24 hours. Children should not ride bikes or skate boards, play on gym sets, etc for 24 hours. 3. Do not make any important decisions or sign important papers for 24 hours. 4. A responsible adult must be with your for the first 24 hour period after discharge. You may experience dizziness and sleepiness following surgery. Rest at home with moderate activity as tolerated. 5. Certain anesthetics and pain medications may produce nausea and vomiting. 6. A raspy voice for 24 - 48 hours is normal and should go away without treatment. 7. A sore area around the intravenous site on the arm will go away in a few days. 8. Low grade fever is normal but if fever is higher than 100.4 degrees F, call your physician. Please remember to discard old medication lists and to update your records with all healthcare providers and retail pharmacies. A drain has been placed during surgery in order to prevent the accumulation of fluids beneath your skin. The drain decreases the chance of infection and helps in the healing process. The nursing staff will instruct you and your family on the care and recording of drainage. You may shower with them. Let soap and water run down over drains, rinse and pat dry with clean towel. Reinforce with gauze or ABD pad around drain site if leaking occurs around the drain; this is not unusual. Hold drains in your hand or attach to lanyard (or string) around your neck with safety pin so they do not hang from your body (the tension on your skin may cause them to be pulled out) while your are showering. The drains are attached to you with suture. If your drain(s) falls out accidentally, place a clean piece of gauze over the drain site with tape and discard your drain. If your drain bulb loses suction or your drain has migrated out from the drain site, do not attempt to push the drain back into your skin. Cover the area with dry gauze. You may be asked by your surgeon to place a piece of semi occlusive dressing (tegaderm) over the drain site to keep the site clean and drain in place until you are seen in the office. When you are wearing clothes, attach drains to your clothes in a place where there is minimal/no tension on the insertion site to your skin. You should empty the drainage and record the output at least 2 times per day, or when the drainage fills the bulb almost retirement. Please keep daily amounts of drainage separate for each drain for a 24-hour period (for example drain #1 put out 40 mL for 24 hours). Strip your drains daily as shown to you by your nurse prior to discharge to avoid them from becoming clogged: Wash your hands. Strip tubing three times a day (more often if there are a lot of blood clots). Grasp tubing close to body with one hand and pull toward body. With other hand grasp tubing below the first hand. Using an alcohol swab, pinch tubing tightly, sliding fingers down tubing, away from body. Repeat 2 or 3 times. Be sure drainage is flowing into bulbs. Measure the drainage in the bulb by either using the calibrations on the bulb or by emptying the Bulb into small measuring container 3 times a day (more often if there is a lot of drainage or they feel heavy) Open small lid on top of bulb. Pour drainage into container. Squeeze bulb and hold while replacing small lid. Bulb should be collapsed to be effective. Pin bulb to clothing so the weight will not pull on the insertion site. Measure drainage and record amount each time you empty the bulbs. Hold container at eye level to read the numbers on the side of the container. Read the numbers in the ml column. Record amount of drainage on chart. Record your drain output daily and bring this record with you to your next follow up appointment. Drains will typically be removed in the clinic when output is less than 30 mL/24 hours per drain over 2 consecutive days. For drain removal appointment, please call your doctors office directly to schedule. Location: Drain #1 Drain #2 Drain #3 Drain #4 AM Noon PM AM Noon PM AM Noon PM AM Noon PM Date: Total (daily) AM Noon PM AM Noon PM AM Noon PM AM Noon PM Date: Total (daily) AM Noon PM AM Noon PM AM Noon PM AM Noon PM Date: Total (daily) AM Noon PM AM Noon PM AM Noon PM AM Noon PM Date: Total (daily) AM Noon PM AM Noon PM AM Noon PM AM Noon PM Date: Total (daily) AM Noon PM AM Noon PM AM Noon PM AM Noon PM Date: Total (daily) AM Noon PM AM Noon PM AM Noon PM AM Noon PM Date: Total (daily) AM Noon PM AM Noon PM AM Noon PM AM Noon PM Date: Total (daily) AM Noon PM AM Noon PM AM Noon PM AM Noon PM Date: Total (daily) AM Noon PM AM Noon PM AM Noon PM AM Noon PM Date: Total (daily) AM Noon PM AM Noon PM AM Noon PM AM Noon PM Date: Total (daily) AM Noon PM AM Noon PM AM Noon PM AM Noon PM Date: Total (daily) AM Noon PM AM Noon PM AM Noon PM AM Noon PM Date: Total (daily) AM Noon PM AM Noon PM AM Noon PM AM Noon PM Date: Total (daily) AM Noon PM AM Noon PM AM Noon PM AM Noon PM Date: Total (daily) documented in this encounter [facility] 12-18-2023 Note Select slides have b een reviewed in consultation with Dr. Walters, of the [facility] breast pathology department, who concurs. [facility] Comment on above: Order Comment: Speci men Type: TISSUE SPECIMENOrdering Facility: [facility] Address: [address] [place] [address] Performed By: #### L [id number] ####[facility] LABCLIA [id number] [address]#### S ####[facility] LABCLIA [id number] [address] LABCLIA [id number] [place] [id number] [facility] 12-18-2023 Note HNO ID: [id number] Author: REDD CURTIS AA Service: ? 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 CAA: Redd Curtis AA Performed by: JOSE Indications and Patient Condition Indications for airway management: anesthesia and airway protection Preoxygenated: yes anesthesia circuit Final Airway Details Final airway type: supraglottic airway Number of attempts at approach: 1 Final Supraglottic Airway: i-gel Size 3 Seal Adequate: yes Failed airway: no Unrecognized esophageal intubation: no Airway not difficult SIGNATURE: VERA Menjivar PATIENT NAME: Alberto Rodriguez DATE: December 18, 2023 TIME: 8:47 AM CSN: [id number] [facility] 12-18-2023 Attending History and physical note UPDATED HISTORY AND PHYSICAL EXAMINATION SERVICE DATE: 12/18/2023 SERVICE TIME: 8:33 AM SENSITIVE EXAMINATION CONSENT: The sensitive examination was discussed with the Patient or Patient's Authorized Salvage Supervisor. As applicable, any other physician, advance practice provider, medical student, or other health professional student that will be observing or involved in the sensitive examination for educational or training purposes was discussed with the Patient or Authorized Salvage Supervisor. The Patient or Authorized Salvage Supervisor has agreed to proceed with the sensitive examination. (Sensitive examination includes inspection and/or palpation of the breasts, pelvis, prostate and anorectal regions) PHYSICAL EXAM MUST BE COMPLETED ON ADMISSION The History and Physical (completed in the past 30 days) has been reviewed and the patient has been examined. The contents accurately reflect the patient's condition with the following additions or revisions since the H&P was completed. Examination indicates no changes. This H&P can be found in the attached. SIGNATURE: Loy Kwon MD PATIENT NAME: Alberto Rodriguez DATE: December 18, 2023 TIME: 8:33 AM Source Note - Elizabeth Smith, BELLMAN.BASKET SORTER - 12/08/2023 1:38 PM EDT Images from the original note were not included. [facility] HISTORY AND PHYSICAL EXAMINATION SERVICE DATE: 12/08/2023 SERVICE TIME: 2:36 PM PRIMARY CARE PHYSICIAN: Ramandeep Alvarez MD Assessment Patient has the following medical conditions which may affect kathy-operative course: Essential hypertension Assessment: controlled on rx Last 14 BP Last 14 Encounter BP Readings: Date: BP: 12/08/2023 132/78 11/08/2023 109/63 11/08/2023 104/63 09/15/2023 105/64 08/29/2023 112/64 07/11/2023 108/58 01/05/2023 123/61 09/30/2022 112/62 07/19/2022 108/64 07/08/2022 120/68 04/14/2022 118/72 12/21/2021 126/66 11/30/2021 114/70 06/18/2021 114/56 PURE HYPERCHOLESTEROLEM Assessment: c/w statin ESOPHAGEAL REFLUX Assessment: controlled on rx History of cerebral infarction Assessment: pt unaware of dx, found in [facility] with brain MRI 10/2021. Denies any deficits. Lives alone, very active. Murmur, cardiac Assessment: harsh murmur heard on exam, last echo with only trace to mild VHD, repeat echo ordered. Pt had negative stress test 2021, and today's EKG NSR. Pt denies palpitations, sob, orthopnea, GARCIA, new or worsening cardiac symptoms. MULTINODULAR GOITER (NONTOXIC) Assessment: hx, denies compressive symptoms, only imaging found was from 2008, no repeat noted in [facility] TSH Date Value Ref Range Status 07/11/2023 4.470 (H) 0.270 - 4.200 mIU/L Final 2009 Thyroid US The right lobe measured 5.2 x 1.4 x 1.8 cm. The right lobe has a heterogeneous echotexture with multiple nodules. There is some shadowing emanating from some of the nodules suggesting calcification. There is a hypoechoic nodule in the upper pole measuring 7 x 4 x 6 mm. There is a hypoechoic nodule in the midportion of the right lobe measuring 6 x 3 x 7 mm. There is a hypoechoic nodule in the posterior aspect of the midportion of the right lobe measuring 9 x 4 x 7 mm. There is also a nodule in the lower pole measuring 9 x 8 x 8 mm. The left lobe of the thyroid measured 4.9 x 1.5 x 1.8 cm. The left lobe has a heterogeneous echotexture and multiple nodules. There was also some shadowing from some of the nodules suggesting calcification. A nodule in the lower pole measured 6 x 6 x 6 mm, one in the midportion measured 12 x 8 x 12 mm and one in the mid portion measured 5 x 3 x 4 mm. The isthmus measured 2 mm in thickness. IMPRESSION: The findings are compatible with a multinodular goiter. Iron deficiency anemia Assessment: hx, following hematology Hemoglobin (g/dL) Date Value 11/08/2023 11.2 12/12/2019 12.4 Hematocrit (%) Date Value 11/08/2023 35.6 12/12/2019 40.9 WBC (k/uL) Date Value 11/08/2023 7.24 12/12/2019 6.43 Anxiety state Assessment: stable on rx per pt Osteopenia Assessment: taking supplements, no recent fx's VHD (valvular heart disease) Assessment: Ef 58% - 1-2+ mitral regurgitation - 1-2+ tricuspid regurgitation - 1+ pulmonic regurgitation Recent Results (from the past 53427 hour(s)) ECHO Collection Time: 12/15/23 10:22 AM Impression CONCLUSIONS: - Technically difficult exam due to body habitus. - Exam indication: Baseline and serial evaluation in a patient undergoing therapy with cardiotoxic agents - The left ventricle is normal in size. Left ventricular systolic function is normal. EF = 58 5% (2D biplane) Grade I left ventricular diastolic dysfunction. - The right ventricle is normal in size. Right ventricular systolic function is normal. - 1-2+ mitral regurgitation - 1-2+ tricuspid regurgitation - 1+ pulmonic regurgitation - Exam was compared with the prior echocardiographic exam performed on 12/28/2018. Prior EF was reported to be 61%. * * * Final * * * Sharma Activity Status Index: METS: Climb a flight of stairs or walk up a hill (5.50 METs) DASI Score: 5.5 Patient denies any chest pain or undue shortness of breath with the above physical activity. Clinical Frailty Scale: 3. Well, with treated comorbid disease STOP-Bang Score: Has or is being treated for high blood pressure Patient over 50 years old Denies snoring loudly Denies feeling tired, fatigued, or sleepy during the daytime Has not been observed to stop breathing or choking/gasping during sleep BMI less than or equal to 35 kg/m^2 Does not have a large neck Non-male patient STOP-Bang Score: 2 Malnutrition Screening Tool: Recent weight loss without trying: No Eating poorly due to decreased appetite: No Weight Loss Score: 0 Appetite Score: 0 MST Score: 0 [id number] Score: Age: >=75 Sex: female CHF history: No Hypertension history: Yes Stroke/TIA/thromboembolism history: No Vascular disease history: No Diabetes history: No [id number] Score: 4 ARISCAT Score: Age: >80 Preoperative SpO2: >=96% Respiratory infection in the last month: No Preoperative anemia: No Surgical incision: peripheral Duration of surgery: <2 hrs Emergency procedure: No ARISCAT Score: 16 ANESTHESIA FINDINGS: Intubation History: No history of difficult intubation Significant Anesthesia Considerations: none Airway History: No history of difficult airway I - PHYSICAL EVALUATION AIRWAY Patient intubated: No. Tracheostomy tube not present Mallampati: III. TM distance: >3 FB. Neck ROM: full ROM without neurological symptoms. Mouth opening: adequate. Short neck: no. Thick neck: no Lemon present: no Lip Bite Test: I Microretrognathia/Micronagthia/Rec essed Chin: No DENTAL Dental findings: teeth intact. Dentures, upper: complete. Dentures, lower: partial. II - ANESTHESIA PLAN Anesthetic Plan: other Beta Raymundo Monitoring Plan Post Procedure Analgesic Plan Informed Consent Anesthetic risks, benefits, alternatives, personnel and consent discussed: yes. Patient / Responsible Libertarian agrees to proceed: yes Prepared for Surgery: optimally prepared for surgery. Labs and echo-reviewed, okay to proceed-JL CONSULTS: Patient does not require consults for optimization at this time Planned Anesthetic: other anesthesia choice The Following Tests/Procedures Have Been Initiated: Orders Placed This Encounter >CBC + AUTO DIFF Standing Status: Future Number of Occurrences: 1 Standing Expiration Date: 03/08/2024 >CMP Standing Status: Future Number of Occurrences: 1 Standing Expiration Date: 03/08/2024 ECG COMPLETE Standing Status: Future Standing Expiration Date: 12/07/2024 ECHO Standing Status: Future Number of Occurrences: 1 Standing Expiration Date: 12/07/2024 Order Specific Question: Disease / Condition: Answer: Valve Disease Order Specific Question: Type: Answer: Squaxin Valvular Regurgitation Order Specific Question: Indication: Answer: Routine surveillance of mild valvular regurgitation (greater than 3yrs) REASON FOR VISIT: Alberto Rodriguez is a 88 year old female who is scheduled for Procedure(s): MASTECTOMY SIMPLE (Right) INTRAOPERATIVE ID OF SENTINEL LYMPH NODE(S) INCL'D INJECTION OF NON-RAD DYE WHEN PERFORMED (Right) BIOPSY NODE AXILLARY (Right) EXCISION BREAST LESION IDENTIFIED BY PREOPERATIVE PLACEMENT RADIOLOGICAL MARKER, OPEN, SINGLE LESION (Left) at the request of Dr. Kimberly Kwon, Loy Godoy MD for consultation. My final recommendation will be communicated back to the requesting physician by way of shared medical record or letter. Subjective The patient has the following: COVID-19 Immunization Status Overdue - Covid-19 Vaccine ( season) Overdue since 11/26/2023 12/19/2022 Imm Admin: COVID-19 vaccine, age 12+ yr (PFIZER-BIONTECH) 12/19/2022 Imm Admin: COVID-19 vaccine, age 12+ yr (MODERNA) 05/04/2022 Imm Admin: COVID-19 vaccine, age 12+ yr, bivalent (PFIZER-BIONTECH) Only the first 3 history entries have been loaded, but more history exists. CHIEF COMPLAINT: Pre-op exam HPI: Alberto Rodriguez is a 88 year old seen for PAC due to scheduled above surgery because of breast cancer. 10/19/2023, Dr. Kimberly Chavez HISTORY of PRESENT ILLNESS: Alberto Rodriguez is a 87 year old female who presents for an evaluation of a new diagnosis of breast cancer. 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 ER 99 [place] 99 Her2 FISH negative SA: TOP HAT ALH 10/21/23: MRI scheduled HISTORY OF BREAST PROCEDURE(S): ~22 years ago right excisional biopsy- for a MG abnormality- all was benign. 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 Neurological: No history of TIA's, stroke, FUNCTIONAL ARCHITECT tumor, impaired sensorium, hemiplegia, paraplegia or quadraplegia. No neurological symptoms or problems. Respiratory: No history of current cough or dyspnea, or pneumonia in the past 6 weeks. No history of respiratory/pulmonary symptoms or problems. Cardiovascular: Positive for: hyperlipidemia (on rx) and hypertension (on rx) Negative for: anticoagulation therapy, arrhythmia, atrial fibrillation, CAD, chest pain, CHF, congenital heart defect, DVT/PE, recent OK, murmur/valvular heart disease, PVD, open heart surgery and valve surgery. GI: No history of GI symptoms or problems. No history of esophageal varices, recent ascites, or ETOH greater than 2 drinks per day. : No history of dysuria, frequency or incontinence, stones or chronic kidney disease. No difficulty urinating, nocturia > 1 time per night or hematuria. 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 Endocrine: No history of diabetes. Has not taken steroids within the past 30 days. No history of endocrinological symptoms or problems. Hematology: Positive for: anemia and iron deficiency anemia. Negative for: bruises/bleeds easily, transfusion of at least 4 units within 72 hours prior to surgery and chronic anti-coagulation/platelet meds. Oncology: See HPI. Psych: Positive for: depression (on rx). Musculoskeletal: Positive for: swelling (on rx, every other day). Skin: Negative for lesions, rash and itching. 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 COLONOSCOPY FLX DX W/COLLJ SPEC WHEN PFRMD 07/18/2003 cecal lipoma, otherwise normal COLONOSCOPY FLX DX W/COLLJ SPEC WHEN PFRMD 06/27/2017 Colonoscopy EGD TRANSORAL BIOPSY SINGLE/MULTIPLE 07/27/2007 Doyle-gastritis LAPS SURG CHOLECYSTECTOMY W/CHOLANGIOGRAPHY 08/02/2007 RPR 1ST INCAL/VNT HERNIA INCARCERATED 08/02/2007 TOTAL ABDOMINAL HYSTERECT W/WO RMVL TUBE OVARY Hysterectomy, JAGRUTI FAMILY HISTORY Problem Relation Age of Onset Heart disease Mother Asthma Father Breast Cancer Sister Breast Cancer Sister Leukemia Sister Heart Brother Stroke Brother Diabetes Maternal Grandmother Colon Cancer Paternal Grandmother Social History Tobacco Use Smoking status: Never Smokeless tobacco: Never Vaping Use Vaping status: Never Used Substance Use Topics Alcohol use: Yes Comment: occasionally wine Drug use: No Prior to Admission medications as of 12/13/23 1406 Medication Sig Last Dose Taking losartan (COZAAR) 25 mg tablet Take 1 tablet by mouth once daily. Taking Yes pravastatin (PRAVACHOL) 40 mg tablet Take 1 tablet by mouth daily at bedtime. Taking Yes amLODIPine (NORVASC) 2.5 mg tablet Take 1 tablet by mouth once daily. Taking Yes nortriptyline (PAMELOR) 50 mg capsule TAKE ONE CAPSULE BY MOUTH EVERY DAY AT BEDTIME Taking Yes gabapentin (NEURONTIN) 100 mg capsule Take 1 capsule by mouth daily at bedtime for 180 days. Taking Yes potassium chloride (K-TAB) 10 mEq tablet Take 1 tablet by mouth daily with breakfast. On days she takes lasix Taking Yes furosemide (LASIX) 20 mg tablet take 1 tablet by mouth every other day Taking Yes >Zippered Compression Knee High 30-40 mm custom CUSTOM MEASURE FOR KNEE HIGH HO COMPRESSION STOCKINGS, 30-40 MM, WITH ZIPPERS PLEASE. IF UNABLE, PLEASE REFER TO CH[facility]G AT [facility]. DX: EDEMA Taking Yes multivitamin tablet Take 1 tablet by mouth once daily. Taking Yes Aspirin 81 mg Tab Take 81 mg by mouth once daily. Taking Yes cholecalciferol (VITAMIN D3) 50 mcg (2,000 unit) tablet Take by mouth once daily. Taking Yes CALCIUM 500 MG TAB Take 1500mg daily when she remebers Taking Yes naproxen sodium(ALEVE 220 MG TAB) Take one(1) tablet twice daily.as necessary Taking Yes methylPREDNISolone (MEDROL, KELIN,) 4 mg Dose-Pack Follow dosing instructions, take with food. No medication comments found. ALLERGIES Allergen Reactions Vicodin [Hydrocodon* Intolerance Objective PHYSICAL EXAM: General: alert and oriented (x3) and healthy appearance. Pertinent negatives noted - not distressed. Skin: normal color, no rash or lesions. HEENT: EOM intact and pupils equal round. Pertinent negatives noted - no carotid bruit. Cardiovascular: Pulse characterized as regular.Positive for murmur. Respiratory: normal breath sounds, no wheezes or crackles. No chest wall deformity or tenderness. Abdomen: soft. Pertinent negatives noted - not tender. Extremities: no deformity, no edema or tenderness, no joint swelling or clubbing. Neurological: normal cognition and motor skills. Gait normal. No weakness or sensory deficit. PAIN ASSESSMENT: VITALS: BP 132/78 Pulse 89 Temp (Src) 97.8 (Temporal) Resp 14 Ht 5' 0 (1.52m) Wt 135 lb (61.2kg) SpO2 96% BMI 26.37 kg/(m^2). Diagnostic tests reviewed for today's visit: Lab Value Units Date High Low HB 11.6 g/dL 12/08/2023 15.5 11.5 HCT 36.1 % 12/08/2023 46.0 36.0 WBC 8.50 k/uL 12/08/2023 11.00 3.70 PLT 342 k/uL 12/08/2023 400 150 NA 134 mmol/L 12/08/2023 144 136 K 4.3 mmol/L 12/08/2023 5.1 3.7 GLUC 87 mg/dL 12/08/2023 99 74 BUN 15 mg/dL 12/08/2023 21 7 CREAT 0.76 mg/dL 12/08/2023 0.96 0.58 PTSEC No results within date range. INR No results within date range. APTT No results within date range. ALT 10 U/L 12/08/2023 38 7 AST 20 U/L 12/08/2023 35 13 TBILI 0.2 mg/dL 12/08/2023 1.3 0.2 TSH 4.470 mIU/L 07/11/2023 4.200 0.270 Lab Value Units Date High Low HCGQT No results within date range. UHCG No results within date range. HCG, BODY* No results within date range. Lab Value Units Date High Low ABORHD No results within date range. ABSCREEN No results within date range. Hemoglobin A1C (%) Date Value 07/11/2023 5.8 Recent Results (from the past 8760 hour(s)) ECG COMPLETE Collection Time: 12/08/23 2:19 PM Result Value Ventricular Rate 72 Atrial Rate 72 P-R Interval 150 QRS Duration 76 QT Interval 410 QTC Calculation (Bazett) 448 Calculated P [place] 67 Calculated R [place] 17 Calculated T [place] 22 Impression NORMAL SINUS RHYTHM NORMAL ECG Confirmed by DULCE BELLE DO ([id number]) on 12/11/2023 8:15:56 PM Recent Results (from the past 80674 hour(s)) ECHO Collection Time: 12/15/23 10:22 AM Impression CONCLUSIONS: - Technically difficult exam due to body habitus. - Exam indication: Baseline and serial evaluation in a patient undergoing therapy with cardiotoxic agents - The left ventricle is normal in size. Left ventricular systolic function is normal. EF = 58 5% (2D biplane) Grade I left ventricular diastolic dysfunction. - The right ventricle is normal in size. Right ventricular systolic function is normal. - 1-2+ mitral regurgitation - 1-2+ tricuspid regurgitation - 1+ pulmonic regurgitation - Exam was compared with the prior echocardiographic exam performed on 12/28/2018. Prior EF was reported to be 61%. * * * Final * * * Instructions Given to Patient: Instructions located in the after visit summary. Patient given verbal and written preop instructions and voices comprehension and compliance. SIGNATURE: Elizabeth Smith APRN.CNP PATIENT NAME: Alberto Rodriguez DATE: December 08, 2023 TIME: 1:38 PM PAGER/CONTACT #: [facility] Work Phone: 12-18-2023 History and physical note UPDATED HISTORY AND PHYSICAL EXAMINATION SERVICE DATE: 12/18/2023 SERVICE TIME: 8:33 AM SENSITIVE EXAMINATION CONSENT: The sensitive examination was discussed with the Patient or Patient's Authorized Salvage Supervisor. As applicable, any other physician, advance practice provider, medical student, or other health professional student that will be observing or involved in the sensitive examination for educational or training purposes was discussed with the Patient or Authorized Salvage Supervisor. The Patient or Authorized Salvage Supervisor has agreed to proceed with the sensitive examination. (Sensitive examination includes inspection and/or palpation of the breasts, pelvis, prostate and anorectal regions) PHYSICAL EXAM MUST BE COMPLETED ON ADMISSION The History and Physical (completed in the past 30 days) has been reviewed and the patient has been examined. The contents accurately reflect the patient's condition with the following additions or revisions since the H&P was completed. Examination indicates no changes. This H&P can be found in the attached. SIGNATURE: Loy Kwon MD PATIENT NAME: Alberto Rodriguez DATE: December 18, 2023 TIME: 8:33 AM Source Note - Elizabeth Smith, BELLMAN.BASKET SORTER - 12/08/2023 1:38 PM EDT Images from the original note were not included. [facility] HISTORY AND PHYSICAL EXAMINATION SERVICE DATE: 12/08/2023 SERVICE TIME: 2:36 PM PRIMARY CARE PHYSICIAN: Ramandeep Alvarez MD Assessment Patient has the following medical conditions which may affect kathy-operative course: Essential hypertension Assessment: controlled on rx Last 14 BP Last 14 Encounter BP Readings: Date: BP: 12/08/2023 132/78 11/08/2023 109/63 11/08/2023 104/63 09/15/2023 105/64 08/29/2023 112/64 07/11/2023 108/58 01/05/2023 123/61 09/30/2022 112/62 07/19/2022 108/64 07/08/2022 120/68 04/14/2022 118/72 12/21/2021 126/66 11/30/2021 114/70 06/18/2021 114/56 PURE HYPERCHOLESTEROLEM Assessment: c/w statin ESOPHAGEAL REFLUX Assessment: controlled on rx History of cerebral infarction Assessment: pt unaware of dx, found in [facility] with brain MRI 10/2021. Denies any deficits. Lives alone, very active. Murmur, cardiac Assessment: harsh murmur heard on exam, last echo with only trace to mild VHD, repeat echo ordered. Pt had negative stress test 2021, and today's EKG NSR. Pt denies palpitations, sob, orthopnea, GARCIA, new or worsening cardiac symptoms. MULTINODULAR GOITER (NONTOXIC) Assessment: hx, denies compressive symptoms, only imaging found was from 2008, no repeat noted in [facility] TSH Date Value Ref Range Status 07/11/2023 4.470 (H) 0.270 - 4.200 mIU/L Final 2009 Thyroid US The right lobe measured 5.2 x 1.4 x 1.8 cm. The right lobe has a heterogeneous echotexture with multiple nodules. There is some shadowing emanating from some of the nodules suggesting calcification. There is a hypoechoic nodule in the upper pole measuring 7 x 4 x 6 mm. There is a hypoechoic nodule in the midportion of the right lobe measuring 6 x 3 x 7 mm. There is a hypoechoic nodule in the posterior aspect of the midportion of the right lobe measuring 9 x 4 x 7 mm. There is also a nodule in the lower pole measuring 9 x 8 x 8 mm. The left lobe of the thyroid measured 4.9 x 1.5 x 1.8 cm. The left lobe has a heterogeneous echotexture and multiple nodules. There was also some shadowing from some of the nodules suggesting calcification. A nodule in the lower pole measured 6 x 6 x 6 mm, one in the midportion measured 12 x 8 x 12 mm and one in the mid portion measured 5 x 3 x 4 mm. The isthmus measured 2 mm in thickness. IMPRESSION: The findings are compatible with a multinodular goiter. Iron deficiency anemia Assessment: hx, following hematology Hemoglobin (g/dL) Date Value 11/08/2023 11.2 12/12/2019 12.4 Hematocrit (%) Date Value 11/08/2023 35.6 12/12/2019 40.9 WBC (k/uL) Date Value 11/08/2023 7.24 12/12/2019 6.43 Anxiety state Assessment: stable on rx per pt Osteopenia Assessment: taking supplements, no recent fx's VHD (valvular heart disease) Assessment: Ef 58% - 1-2+ mitral regurgitation - 1-2+ tricuspid regurgitation - 1+ pulmonic regurgitation Recent Results (from the past 20518 hour(s)) ECHO Collection Time: 12/15/23 10:22 AM Impression CONCLUSIONS: - Technically difficult exam due to body habitus. - Exam indication: Baseline and serial evaluation in a patient undergoing therapy with cardiotoxic agents - The left ventricle is normal in size. Left ventricular systolic function is normal. EF = 58 5% (2D biplane) Grade I left ventricular diastolic dysfunction. - The right ventricle is normal in size. Right ventricular systolic function is normal. - 1-2+ mitral regurgitation - 1-2+ tricuspid regurgitation - 1+ pulmonic regurgitation - Exam was compared with the prior CC echocardiographic exam performed on 12/28/2018. Prior EF was reported to be 61%. * * * Final * * * Sharma Activity Status Index: METS: Climb a flight of stairs or walk up a hill (5.50 METs) DASI Score: 5.5 Patient denies any chest pain or undue shortness of breath with the above physical activity. Clinical Frailty Scale: 3. Well, with treated comorbid disease STOP-Bang Score: Has or is being treated for high blood pressure Patient over 50 years old Denies snoring loudly Denies feeling tired, fatigued, or sleepy during the daytime Has not been observed to stop breathing or choking/gasping during sleep BMI less than or equal to 35 kg/m^2 Does not have a large neck Non-male patient STOP-Bang Score: 2 Malnutrition Screening Tool: Recent weight loss without trying: No Eating poorly due to decreased appetite: No Weight Loss Score: 0 Appetite Score: 0 MST Score: 0 [id number] Score: Age: >=75 Sex: female CHF history: No Hypertension history: Yes Stroke/TIA/thromboembolism history: No Vascular disease history: No Diabetes history: No [id number] Score: 4 ARISCAT Score: Age: >80 Preoperative SpO2: >=96% Respiratory infection in the last month: No Preoperative anemia: No Surgical incision: peripheral Duration of surgery: <2 hrs Emergency procedure: No ARISCAT Score: 16 ANESTHESIA FINDINGS: Intubation History: No history of difficult intubation Significant Anesthesia Considerations: none Airway History: No history of difficult airway I - PHYSICAL EVALUATION AIRWAY Patient intubated: No. Tracheostomy tube not present Mallampati: III. TM distance: >3 FB. Neck ROM: full ROM without neurological symptoms. Mouth opening: adequate. Short neck: no. Thick neck: no Lemon present: no Lip Bite Test: I Microretrognathia/Micronagthia/Rec essed Chin: No DENTAL Dental findings: teeth intact. Dentures, upper: complete. Dentures, lower: partial. II - ANESTHESIA PLAN Anesthetic Plan: other Beta Raymundo Monitoring Plan Post Procedure Analgesic Plan Informed Consent Anesthetic risks, benefits, alternatives, personnel and consent discussed: yes. Patient / Responsible Libertarian agrees to proceed: yes Prepared for Surgery: optimally prepared for surgery. Labs and echo-reviewed, okay to proceed-JL CONSULTS: Patient does not require consults for optimization at this time Planned Anesthetic: other anesthesia choice The Following Tests/Procedures Have Been Initiated: Orders Placed This Encounter >CBC + AUTO DIFF Standing Status: Future Number of Occurrences: 1 Standing Expiration Date: 03/08/2024 >CMP Standing Status: Future Number of Occurrences: 1 Standing Expiration Date: 03/08/2024 ECG COMPLETE Standing Status: Future Standing Expiration Date: 12/07/2024 ECHO Standing Status: Future Number of Occurrences: 1 Standing Expiration Date: 12/07/2024 Order Specific Question: Disease / Condition: Answer: Valve Disease Order Specific Question: Type: Answer: Squaxin Valvular Regurgitation Order Specific Question: Indication: Answer: Routine surveillance of mild valvular regurgitation (greater than 3yrs) REASON FOR VISIT: Alberto Rodriguez is a 88 year old female who is scheduled for Procedure(s): MASTECTOMY SIMPLE (Right) INTRAOPERATIVE ID OF SENTINEL LYMPH NODE(S) INCL'D INJECTION OF NON-RAD DYE WHEN PERFORMED (Right) BIOPSY NODE AXILLARY (Right) EXCISION BREAST LESION IDENTIFIED BY PREOPERATIVE PLACEMENT RADIOLOGICAL MARKER, OPEN, SINGLE LESION (Left) at the request of Loy Villalpando MD for consultation. My final recommendation will be communicated back to the requesting physician by way of shared medical record or letter. Subjective The patient has the following: COVID-19 Immunization Status Overdue - Covid-19 Vaccine () Overdue since 11/26/2023 12/19/2022 Imm Admin: COVID-19 vaccine, age 12+ yr (PFIZER-BIONTECH) 12/19/2022 Imm Admin: COVID-19 vaccine, age 12+ yr (MODERNA) 05/04/2022 Imm Admin: COVID-19 vaccine, age 12+ yr, bivalent (PFIZER-BIONTECH) Only the first 3 history entries have been loaded, but more history exists. CHIEF COMPLAINT: Pre-op exam HPI: Alberto Rodriguez is a 88 year old seen for PAC due to scheduled above surgery because of breast cancer. 10/19/2023, Dr. Kimberly Chavez HISTORY of PRESENT ILLNESS: Alberto Rodriguez is a 87 year old female who presents for an evaluation of a new diagnosis of breast cancer. 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 ER 99 [place] 99 Her2 FISH negative SA: TOP HAT ALH 10/21/23: MRI scheduled HISTORY OF BREAST PROCEDURE(S): ~22 years ago right excisional biopsy- for a MG abnormality- all was benign. 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 Neurological: No history of TIA's, stroke, FUNCTIONAL ARCHITECT tumor, impaired sensorium, hemiplegia, paraplegia or quadraplegia. No neurological symptoms or problems. Respiratory: No history of current cough or dyspnea, or pneumonia in the past 6 weeks. No history of respiratory/pulmonary symptoms or problems. Cardiovascular: Positive for: hyperlipidemia (on rx) and hypertension (on rx) Negative for: anticoagulation therapy, arrhythmia, atrial fibrillation, CAD, chest pain, CHF, congenital heart defect, DVT/PE, recent OK, murmur/valvular heart disease, PVD, open heart surgery and valve surgery. GI: No history of GI symptoms or problems. No history of esophageal varices, recent ascites, or ETOH greater than 2 drinks per day. : No history of dysuria, frequency or incontinence, stones or chronic kidney disease. No difficulty urinating, nocturia > 1 time per night or hematuria. 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 Endocrine: No history of diabetes. Has not taken steroids within the past 30 days. No history of endocrinological symptoms or problems. Hematology: Positive for: anemia and iron deficiency anemia. Negative for: bruises/bleeds easily, transfusion of at least 4 units within 72 hours prior to surgery and chronic anti-coagulation/platelet meds. Oncology: See HPI. Psych: Positive for: depression (on rx). Musculoskeletal: Positive for: swelling (on rx, every other day). Skin: Negative for lesions, rash and itching. 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 COLONOSCOPY FLX DX W/COLLJ SPEC WHEN PFRMD 07/18/2003 cecal lipoma, otherwise normal COLONOSCOPY FLX DX W/COLLJ SPEC WHEN PFRMD 06/27/2017 Colonoscopy EGD TRANSORAL BIOPSY SINGLE/MULTIPLE 07/27/2007 Doyle-gastritis LAPS SURG CHOLECYSTECTOMY W/CHOLANGIOGRAPHY 08/02/2007 RPR 1ST INCAL/VNT HERNIA INCARCERATED 08/02/2007 TOTAL ABDOMINAL HYSTERECT W/WO RMVL TUBE OVARY Hysterectomy, JAGRUTI FAMILY HISTORY Problem Relation Age of Onset Heart disease Mother Asthma Father Breast Cancer Sister Breast Cancer Sister Leukemia Sister Heart Brother Stroke Brother Diabetes Maternal Grandmother Colon Cancer Paternal Grandmother Social History Tobacco Use Smoking status: Never Smokeless tobacco: Never Vaping Use Vaping status: Never Used Substance Use Topics Alcohol use: Yes Comment: occasionally wine Drug use: No Prior to Admission medications as of 12/13/23 1406 Medication Sig Last Dose Taking losartan (COZAAR) 25 mg tablet Take 1 tablet by mouth once daily. Taking Yes pravastatin (PRAVACHOL) 40 mg tablet Take 1 tablet by mouth daily at bedtime. Taking Yes amLODIPine (NORVASC) 2.5 mg tablet Take 1 tablet by mouth once daily. Taking Yes nortriptyline (PAMELOR) 50 mg capsule TAKE ONE CAPSULE BY MOUTH EVERY DAY AT BEDTIME Taking Yes gabapentin (NEURONTIN) 100 mg capsule Take 1 capsule by mouth daily at bedtime for 180 days. Taking Yes potassium chloride (K-TAB) 10 mEq tablet Take 1 tablet by mouth daily with breakfast. On days she takes lasix Taking Yes furosemide (LASIX) 20 mg tablet take 1 tablet by mouth every other day Taking Yes >Zippered Compression Knee High 30-40 mm custom CUSTOM MEASURE FOR KNEE HIGH HO COMPRESSION STOCKINGS, 30-40 MM, WITH ZIPPERS PLEASE. IF UNABLE, PLEASE REFER TO [facility]G AT [facility]. DX: EDEMA Taking Yes multivitamin tablet Take 1 tablet by mouth once daily. Taking Yes Aspirin 81 mg Tab Take 81 mg by mouth once daily. Taking Yes cholecalciferol (VITAMIN D3) 50 mcg (2,000 unit) tablet Take by mouth once daily. Taking Yes CALCIUM 500 MG TAB Take 1500mg daily when she remebers Taking Yes naproxen sodium(ALEVE 220 MG TAB) Take one(1) tablet twice daily.as necessary Taking Yes methylPREDNISolone (MEDROL, KELIN,) 4 mg Dose-Pack Follow dosing instructions, take with food. No medication comments found. ALLERGIES Allergen Reactions Vicodin [Hydrocodon* Intolerance Objective PHYSICAL EXAM: General: alert and oriented (x3) and healthy appearance. Pertinent negatives noted - not distressed. Skin: normal color, no rash or lesions. HEENT: EOM intact and pupils equal round. Pertinent negatives noted - no carotid bruit. Cardiovascular: Pulse characterized as regular.Positive for murmur. Respiratory: normal breath sounds, no wheezes or crackles. No chest wall deformity or tenderness. Abdomen: soft. Pertinent negatives noted - not tender. Extremities: no deformity, no edema or tenderness, no joint swelling or clubbing. Neurological: normal cognition and motor skills. Gait normal. No weakness or sensory deficit. PAIN ASSESSMENT: VITALS: BP 132/78 Pulse 89 Temp (Src) 97.8 (Temporal) Resp 14 Ht 5' 0 (1.52m) Wt 135 lb (61.2kg) SpO2 96% BMI 26.37 kg/(m^2). Diagnostic tests reviewed for today's visit: Lab Value Units Date High Low HB 11.6 g/dL 12/08/2023 15.5 11.5 HCT 36.1 % 12/08/2023 46.0 36.0 WBC 8.50 k/uL 12/08/2023 11.00 3.70 PLT 342 k/uL 12/08/2023 400 150 NA 134 mmol/L 12/08/2023 144 136 K 4.3 mmol/L 12/08/2023 5.1 3.7 GLUC 87 mg/dL 12/08/2023 99 74 BUN 15 mg/dL 12/08/2023 21 7 CREAT 0.76 mg/dL 12/08/2023 0.96 0.58 PTSEC No results within date range. INR No results within date range. APTT No results within date range. ALT 10 U/L 12/08/2023 38 7 AST 20 U/L 12/08/2023 35 13 TBILI 0.2 mg/dL 12/08/2023 1.3 0.2 TSH 4.470 mIU/L 07/11/2023 4.200 0.270 Lab Value Units Date High Low HCGQT No results within date range. UHCG No results within date range. HCG, BODY* No results within date range. Lab Value Units Date High Low ABORHD No results within date range. ABSCREEN No results within date range. Hemoglobin A1C (%) Date Value 07/11/2023 5.8 Recent Results (from the past 8760 hour(s)) ECG COMPLETE Collection Time: 12/08/23 2:19 PM Result Value Ventricular Rate 72 Atrial Rate 72 P-R Interval 150 QRS Duration 76 QT Interval 410 QTC Calculation (Bazett) 448 Calculated P [place] 67 Calculated R [place] 17 Calculated T [place] 22 Impression NORMAL SINUS RHYTHM NORMAL ECG Confirmed by DULCE EBLLE DO ([id number]) on 12/11/2023 8:15:56 PM Recent Results (from the past 76501 hour(s)) ECHO Collection Time: 12/15/23 10:22 AM Impression CONCLUSIONS: - Technically difficult exam due to body habitus. - Exam indication: Baseline and serial evaluation in a patient undergoing therapy with cardiotoxic agents - The left ventricle is normal in size. Left ventricular systolic function is normal. EF = 58 5% (2D biplane) Grade I left ventricular diastolic dysfunction. - The right ventricle is normal in size. Right ventricular systolic function is normal. - 1-2+ mitral regurgitation - 1-2+ tricuspid regurgitation - 1+ pulmonic regurgitation - Exam was compared with the prior echocardiographic exam performed on 12/28/2018. Prior EF was reported to be 61%. * * * Final * * * Instructions Given to Patient: Instructions located in the after visit summary. Patient given verbal and written preop instructions and voices comprehension and compliance. SIGNATURE: Elizabeth Smith APRN.CNP PATIENT NAME: Alberto Rodriguez DATE: December 08, 2023 TIME: 1:38 PM PAGER/CONTACT #: documented in this encounter [facility] 12-13-2023 Note IMPRESSION: Post procedure mammogram shows successful clip placement. Mammogram BI-RADS: Post-procedure mammogram for marker placement Interpreting Radiologist: Clarisa Villegas M.D. Executive Assistant: ALBA Transcribe Date/Time: Dec 13 2023 1:28P Dictated by : CLARISA VILLEGAS MD This examination was interpreted and the report reviewed and electronically signed by: CLARISA VILLEGAS MD on Dec 13 2023 3:25PM [facility] 12-13-2023 Note HNO ID: [id number] Author: NURIS ALEGRIA RN Service: ? Author Type: Registered Nurse Type: Progress Notes Filed: 12/13/2023 15:15 Note Text: AMBULATORY PATIENT EDUCATION NOTE TOPIC: SURVIVAL SKILLS: Pre and post op education Complication Prevention Disease Education Medical Equipment conor drain Symptom Management Wound Care READINESS TO LEARN COGNITIVE ABILITY: Alert and oriented MOTIVATION TO LEARN: Eager Interested FAMILY SUPPORT: High - Very involved in pt care INSTRUCTION PROVIDED TO: Patient and family member PATIENT LEARNS BEST BY: Multiple Methods FACTORS AFFECTING LEARNING: None PHYSICAL LIMITATIONS AFFECTING LEARNING: None LEARNING RESPONSE DIAGNOSIS: malignant neoplasm of upper-outer quadrant of right breast METHOD OF INSTRUCTION: Teach Back conor drain Individual instruction Written instruction/Handouts Verbal instruction Demonstration/Hands on Learning Video PATIENT / FAMILY RESPONSE: Verbalizes understanding of: DRAIN CARE- Correct procedure to perform drain care POST-OPERATIVE INSTRUCTIONS-Correct actions to take to reduce postoperative complications PRE-OPERATIVE INSTRUCTIONS-Correct action to take to follow pre-operative instructions SYMPTOM MANAGEMENT-Correct actions to take to manage symptoms associated with his/her disease/illness WORSENING CONDITION-Signs and symptoms of a worsening condition that warrant a call to the physician WOUND CARE-Correct procedure to perform wound care FOLLOW-UP PLAN: Patient instructed to call with any further issues SUPPLEMENTAL MATERIAL: Your Surgical Guide [facility] REFERRAL (RECOMMENDATION): None Hibiclens 4 ounce bottle given to patient with instruction. Electronically Signed By: Nuris Alegria RN In Department: BREAST CENTER Time spent on patient education: 30 minutes. [facility] 12-13-2023 History of Present illness Narrative AMBULATORY PATIENT EDUCATION NOTE TOPIC: SURVIVAL SKILLS: Pre and post op education Complication Prevention Disease Education Medical Equipment conor drain Symptom Management Wound Care READINESS TO LEARN COGNITIVE ABILITY: Alert and oriented MOTIVATION TO LEARN: Eager Interested FAMILY SUPPORT: High - Very involved in pt care INSTRUCTION PROVIDED TO: Patient and family member PATIENT LEARNS BEST BY: Multiple Methods FACTORS AFFECTING LEARNING: None PHYSICAL LIMITATIONS AFFECTING LEARNING: None LEARNING RESPONSE DIAGNOSIS: malignant neoplasm of upper-outer quadrant of right breast METHOD OF INSTRUCTION: Teach Back conor drain Individual instruction Written instruction/Handouts Verbal instruction Demonstration/Hands on Learning Video PATIENT / FAMILY RESPONSE: Verbalizes understanding of: DRAIN CARE- Correct procedure to perform drain care POST-OPERATIVE INSTRUCTIONS-Correct actions to take to reduce postoperative complications PRE-OPERATIVE INSTRUCTIONS-Correct action to take to follow pre-operative instructions SYMPTOM MANAGEMENT-Correct actions to take to manage symptoms associated with his/her disease/illness WORSENING CONDITION-Signs and symptoms of a worsening condition that warrant a call to the physician WOUND CARE-Correct procedure to perform wound care FOLLOW-UP PLAN: Patient instructed to call with any further issues SUPPLEMENTAL MATERIAL: Your Surgical [facility] REFERRAL (RECOMMENDATION): None Hibiclens 4 ounce bottle given to patient with instruction. Electronically Signed By: Nuris Alegria RN In Department: [facility] Time spent on patient education: 30 minutes. documented in this encounter [facility] 12-13-2023 Instructions Formatting of th is note might be different from the original. Patient given post procedure instructions [facility] 12-13-2023 Note HNO ID: [id number] Author: NURIS BRUNSON RT(R) Service: ? Author Type: Customs Opener Verifier Packer Type: Patient Education Filed: 12/13/2023 13:37 Note Text: Patient given post procedure instructions [facility] 12-13-2023 Miscellaneous Notes Patient given post procedure instructions documented in this encounter [facility] 12-11-2023 Note HNO ID: [id number] Author: RAMANDEEP ALVAREZ MD Service: ? Author Type: Physician Type: Progress Notes Filed: 12/11/2023 10:39 Note Text: Reason for Visit Patient presents with: Insect Bite Alberto Rodriguez is a 88 year old female who presents here today for Above Complaints.. Health Maintenance Covid-19 Vaccine( season) Influenza Vaccine(1) RYAN Resendiz is a very pleasant 88-year-old woman with a past medical history of hypertension, hyper cholesterolemia, postherpetic neuralgia, chronic venous insufficiency who was recently diagnosed with breast cancer. She was outside on Monday, watering her flower garden and slept on the chair outside. She woke and saw a rash, it tingled and hurt a little. She started using a fungal cream with steroid. She was told that she has poison armin in her back porch. Currently She is undergoing a mastectomy next week and is afraid it wont be done due to this, she thinks it is an bite of a insect. Unfortunately patient had decided for many years to be on estrogen for her hot flashes, she wanted to take the risk of cancer but not have hot flashes. we were monitoring by doing regular mammograms till this year a mass was seen. Biopsy showed ER and [place] positive mass. No problem-specific Assessment AND Plan notes found for this encounter. 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 COLONOSCOPY FLX DX W/COLLJ SPEC WHEN PFRMD 07/18/2003 cecal lipoma, otherwise normal COLONOSCOPY FLX DX W/COLLJ SPEC WHEN PFRMD 06/27/2017 Colonoscopy EGD TRANSORAL BIOPSY SINGLE/MULTIPLE 07/27/2007 Doyle-gastritis LAPS SURG CHOLECYSTECTOMY W/CHOLANGIOGRAPHY 08/02/2007 RPR 1ST INCAL/VNT HERNIA INCARCERATED 08/02/2007 TOTAL ABDOMINAL HYSTERECT W/WO RMVL TUBE OVARY Hysterectomy, JAGRUTI FAMILY HISTORY Problem Relation Age of Onset Heart disease Mother Asthma Father Breast Cancer Sister Breast Cancer Sister Leukemia Sister Heart Brother Stroke Brother Diabetes Maternal Grandmother Colon Cancer Paternal Grandmother Social History Tobacco Use Smoking status: Never Smokeless tobacco: Never Vaping Use Vaping status: Never Used Substance Use Topics Alcohol use: Yes Comment: occasionally wine Drug use: No Past medical history, appointments, medications, allergies reviewed. Pertinent Lab/Diagnostic Studies are reviewed and discussed today Current Outpatient Medications: losartan (COZAAR) 25 mg tablet pravastatin (PRAVACHOL) 40 mg tablet amLODIPine (NORVASC) 2.5 mg tablet nortriptyline (PAMELOR) 50 mg capsule gabapentin (NEURONTIN) 100 mg capsule potassium chloride (K-TAB) 10 mEq tablet furosemide (LASIX) 20 mg tablet >Zippered Compression Knee High 30-40 mm custom multivitamin tablet Aspirin 81 mg Tab cholecalciferol (VITAMIN D3) 50 mcg (2,000 unit) tablet CALCIUM 500 MG TAB naproxen sodium(ALEVE 220 MG TAB) Review of Systems CONSTITUTIONAL: No fevers, chills night sweats, unintended weight loss CARDIOVASCULAR: No chest pain, dyspnea, palpitations, orthopnea, PND, ankle edema. PULM: No dyspnea, unexplained cough. GI: No dysphagia/odynophagia, problematic reflux, constipation, diarrhea, changes in stool habits, hematochezia, melena. : No new urinary complaints, including dysuria, gross hematuria or pyuria. NEURO: No new balance problems, peripheral weakness/paresthesias or numbness of concern. Physical Exam BP 110/70 Pulse 80 Resp 16 Wt 60.8 kg (134 lb) BMI 26.17 kg/m? General appearance: Well appearing, alert, in no acute distress, well nourished. Skin: Ocular papular rash in the left breast involving almost half of the lateral breast. It is mildly raised erythematous. Head: Normocephalic, no masses, lesions, tenderness or abnormalities Eyes: Anicteric sclera. Pupils are equally round and reactive to light. Extraocular movements are intact. Lungs: Lungs clear to auscultation. No wheezing, rhonchi, rales Heart: RRR without murmur, gallop, or rubs. Extremities: No deformities, edema, skin discoloration, clubbing or cyanosis. Good capillary refill. ASSESSMENT/PLAN: 1. Poison armin dermatitis - ICD9: 692.6, ICD10: L23.7 (primary diagnosis) - discussed skin care of rash - follow up if symptoms persist or worsen. 2. Hot flashes - ICD9: 782.62, ICD10: R23.2 We cannot give her estrogen anymore. She was asking for estradiol thinking it is not estro (more content not included)... [facility] 12-11-2023 History of Present illness Narrative Reason for Visit Patient presents with: Insect Bite Alberto Rodriguez is a 88 year old female who presents here today for Above Complaints.. Health Maintenance Covid-19 Vaccine( season) Influenza Vaccine(1) RYAN Resendiz is a very pleasant 88-year-old woman with a past medical history of hypertension, hyper cholesterolemia, postherpetic neuralgia, chronic venous insufficiency who was recently diagnosed with breast cancer. She was outside on Monday, watering her flower garden and slept on the chair outside. She woke and saw a rash, it tingled and hurt a little. She started using a fungal cream with steroid. She was told that she has poison armin in her back porch. Currently She is undergoing a mastectomy next week and is afraid it wont be done due to this, she thinks it is an bite of a insect. Unfortunately patient had decided for many years to be on estrogen for her hot flashes, she wanted to take the risk of cancer but not have hot flashes. we were monitoring by doing regular mammograms till this year a mass was seen. Biopsy showed ER and WY positive mass. No problem-specific Assessment & Plan notes found for this encounter. 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 COLONOSCOPY FLX DX W/COLLJ SPEC WHEN PFRMD 07/18/2003 cecal lipoma, otherwise normal COLONOSCOPY FLX DX W/COLLJ SPEC WHEN PFRMD 06/27/2017 Colonoscopy EGD TRANSORAL BIOPSY SINGLE/MULTIPLE 07/27/2007 Doyle-gastritis LAPS SURG CHOLECYSTECTOMY W/CHOLANGIOGRAPHY 08/02/2007 RPR 1ST INCAL/VNT HERNIA INCARCERATED 08/02/2007 TOTAL ABDOMINAL HYSTERECT W/WO RMVL TUBE OVARY Hysterectomy, JAGRUTI FAMILY HISTORY Problem Relation Age of Onset Heart disease Mother Asthma Father Breast Cancer Sister Breast Cancer Sister Leukemia Sister Heart Brother Stroke Brother Diabetes Maternal Grandmother Colon Cancer Paternal Grandmother Social History Tobacco Use Smoking status: Never Smokeless tobacco: Never Vaping Use Vaping status: Never Used Substance Use Topics Alcohol use: Yes Comment: occasionally wine Drug use: No Past medical history, appointments, medications, allergies reviewed. Pertinent Lab/Diagnostic Studies are reviewed and discussed today Current Outpatient Medications: losartan (COZAAR) 25 mg tablet pravastatin (PRAVACHOL) 40 mg tablet amLODIPine (NORVASC) 2.5 mg tablet nortriptyline (PAMELOR) 50 mg capsule gabapentin (NEURONTIN) 100 mg capsule potassium chloride (K-TAB) 10 mEq tablet furosemide (LASIX) 20 mg tablet >Zippered Compression Knee High 30-40 mm custom multivitamin tablet Aspirin 81 mg Tab cholecalciferol (VITAMIN D3) 50 mcg (2,000 unit) tablet CALCIUM 500 MG TAB naproxen sodium(ALEVE 220 MG TAB) Review of Systems CONSTITUTIONAL: No fevers, chills night sweats, unintended weight loss CARDIOVASCULAR: No chest pain, dyspnea, palpitations, orthopnea, PND, ankle edema. PULM: No dyspnea, unexplained cough. GI: No dysphagia/odynophagia, problematic reflux, constipation, diarrhea, changes in stool habits, hematochezia, melena. : No new urinary complaints, including dysuria, gross hematuria or pyuria. NEURO: No new balance problems, peripheral weakness/paresthesias or numbness of concern. Physical Exam BP 110/70 Pulse 80 Resp 16 Wt 60.8 kg (134 lb) BMI 26.17 kg/m General appearance: Well appearing, alert, in no acute distress, well nourished. Skin: Ocular papular rash in the left breast involving almost half of the lateral breast. It is mildly raised erythematous. Head: Normocephalic, no masses, lesions, tenderness or abnormalities Eyes: Anicteric sclera. Pupils are equally round and reactive to light. Extraocular movements are intact. Lungs: Lungs clear to auscultation. No wheezing, rhonchi, rales Heart: RRR without murmur, gallop, or rubs. Extremities: No deformities, edema, skin discoloration, clubbing or cyanosis. Good capillary refill. ASSESSMENT/PLAN: 1. Poison armin dermatitis - ICD9: 692.6, ICD10: L23.7 (primary diagnosis) - discussed skin care of rash - follow up if symptoms persist or worsen. 2. Hot flashes - ICD9: 782.62, ICD10: R23.2 We cannot give her estrogen anymore. She was asking for estradiol thinking it is not estrogen but again we advised her that it is not to be taken. We did discuss clonidine. There will be a lot of changes in her blood pressure medicines following that and since she is very close to surgery I advised her to deal with a hot flashes till she sees me after surgery. At that time I will get onto clonidine and try to take her off either the losartan or amlodipine. To also deal with her hot flashes I could try to start her on an SSRI. Currently she is on nortriptyline at 50 mg. Due to the anticholinergic effects I would like to slow taper and get her off the medication and put her on an SSRI. I discussed that all these changes just before surgery may not be very advisable and it has to be done slow she is agreeable with the plan. 3. Essential hypertension - ICD9: 401.9, ICD10: I10 - Controlled - Recommend home blood pressure monitoring, to bring results to next visit - Encouraged sodium restriction, DASH or Mediterranean diet - Recommend regular aerobic exercise Ramandeep Alvarez MD documented in this encounter [facility] 12-08-2023 History and physical note Images from the original note were not included. [facility] HISTORY AND PHYSICAL EXAMINATION SERVICE DATE: 12/08/2023 SERVICE TIME: 2:17 PM PRIMARY CARE PHYSICIAN: Ramandeep Alvarez MD Assessment Patient has the following medical conditions which may affect kathy-operative course: Essential hypertension Assessment: controlled on rx Last 14 BP Last 14 Encounter BP Readings: Date: BP: 12/08/2023 132/78 11/08/2023 109/63 11/08/2023 104/63 09/15/2023 105/64 08/29/2023 112/64 07/11/2023 108/58 01/05/2023 123/61 09/30/2022 112/62 07/19/2022 108/64 07/08/2022 120/68 04/14/2022 118/72 12/21/2021 126/66 11/30/2021 114/70 06/18/2021 114/56 PURE HYPERCHOLESTEROLEM Assessment: c/w statin ESOPHAGEAL REFLUX Assessment: controlled on rx History of cerebral infarction Assessment: pt unaware of dx, found in [facility] with brain MRI 10/2021. Denies any deficits. Lives alone, very active. Murmur, cardiac Assessment: harsh murmur heard on exam, last echo with only trace to mild VHD, repeat echo ordered. Pt had negative stress test 2021, and today's EKG NSR. Pt denies palpitations, sob, orthopnea, GARCIA, new or worsening cardiac symptoms. MULTINODULAR GOITER (NONTOXIC) Assessment: hx, denies compressive symptoms, only imaging found was from 2008, no repeat noted in [facility] TSH Date Value Ref Range Status 07/11/2023 4.470 (H) 0.270 - 4.200 mIU/L Final 2008 Thyroid US The right lobe measured 5.2 x 1.4 x 1.8 cm. The right lobe has a heterogeneous echotexture with multiple nodules. There is some shadowing emanating from some of the nodules suggesting calcification. There is a hypoechoic nodule in the upper pole measuring 7 x 4 x 6 mm. There is a hypoechoic nodule in the midportion of the right lobe measuring 6 x 3 x 7 mm. There is a hypoechoic nodule in the posterior aspect of the midportion of the right lobe measuring 9 x 4 x 7 mm. There is also a nodule in the lower pole measuring 9 x 8 x 8 mm. The left lobe of the thyroid measured 4.9 x 1.5 x 1.8 cm. The left lobe has a heterogeneous echotexture and multiple nodules. There was also some shadowing from some of the nodules suggesting calcification. A nodule in the lower pole measured 6 x 6 x 6 mm, one in the midportion measured 12 x 8 x 12 mm and one in the mid portion measured 5 x 3 x 4 mm. The isthmus measured 2 mm in thickness. IMPRESSION: The findings are compatible with a multinodular goiter. Iron deficiency anemia Assessment: hx, following hematology Hemoglobin (g/dL) Date Value 11/08/2023 11.2 12/12/2019 12.4 Hematocrit (%) Date Value 11/08/2023 35.6 12/12/2019 40.9 WBC (k/uL) Date Value 11/08/2023 7.24 12/12/2019 6.43 Anxiety state Assessment: stable on rx per pt Osteopenia Assessment: taking supplements, no recent fx's Sharma Activity Status Index: METS: Climb a flight of stairs or walk up a hill (5.50 METs) DASI Score: 5.5 Patient denies any chest pain or undue shortness of breath with the above physical activity. Clinical Frailty Scale: 3. Well, with treated comorbid disease STOP-Bang Score: Has or is being treated for high blood pressure Patient over 50 years old Denies snoring loudly Denies feeling tired, fatigued, or sleepy during the daytime Has not been observed to stop breathing or choking/gasping during sleep BMI less than or equal to 35 kg/m^2 Does not have a large neck Non-male patient STOP-Bang Score: 2 Malnutrition Screening Tool: Recent weight loss without trying: No Eating poorly due to decreased appetite: No Weight Loss Score: 0 Appetite Score: 0 MST Score: 0 [id number] Score: Age: >=75 Sex: female CHF history: No Hypertension history: Yes Stroke/TIA/thromboembolism history: No Vascular disease history: No Diabetes history: No [id number] Score: 4 ARISCAT Score: Age: >80 Preoperative SpO2: >=96% Respiratory infection in the last month: No Preoperative anemia: No Surgical incision: peripheral Duration of surgery: <2 hrs Emergency procedure: No ARISCAT Score: 16 ANESTHESIA FINDINGS: Intubation History: No history of difficult intubation Significant Anesthesia Considerations: none Airway History: No history of difficult airway I - PHYSICAL EVALUATION AIRWAY Patient intubated: No. Tracheostomy tube not present Mallampati: III. TM distance: >3 FB. Neck ROM: full ROM without neurological symptoms. Mouth opening: adequate. Short neck: no. Thick neck: no Lemon present: no Lip Bite Test: I Microretrognathia/Micronagthia/Rec essed Chin: No DENTAL Dental findings: teeth intact. Dentures, upper: complete. Dentures, lower: partial. II - ANESTHESIA PLAN Anesthetic Plan: other Beta Raymundo Monitoring Plan Post Procedure Analgesic Plan Informed Consent Anesthetic risks, benefits, alternatives, personnel and consent discussed: yes. Patient / Responsible Libertarian agrees to proceed: yes Prepared for Surgery: optimally prepared for surgery, pending [see comment]. Labs and echo CONSULTS: Patient does not require consults for optimization at this time Planned Anesthetic: other anesthesia choice The Following Tests/Procedures Have Been Initiated: Orders Placed This Encounter >CBC + AUTO DIFF Standing Status: Future Standing Expiration Date: 03/08/2024 >CMP Standing Status: Future Standing Expiration Date: 03/08/2024 ECG COMPLETE Standing Status: Future Standing Expiration Date: 12/07/2024 ECHO Standing Status: Future Standing Expiration Date: 12/07/2024 Order Specific Question: Disease / Condition: Answer: Valve Disease Order Specific Question: Type: Answer: Squaxin Valvular Regurgitation Order Specific Question: Indication: Answer: Routine surveillance of mild valvular regurgitation (greater than 3yrs) REASON FOR VISIT: Alberto Rodriguez is a 88 year old female who is scheduled for Procedure(s): MASTECTOMY SIMPLE (Right) INTRAOPERATIVE ID OF SENTINEL LYMPH NODE(S) INCL'D INJECTION OF NON-RAD DYE WHEN PERFORMED (Right) BIOPSY NODE AXILLARY (Right) EXCISION BREAST LESION IDENTIFIED BY PREOPERATIVE PLACEMENT RADIOLOGICAL MARKER, OPEN, SINGLE LESION (Left) at the request of Loy Villalpando MD for consultation. My final recommendation will be communicated back to the requesting physician by way of shared medical record or letter. Subjective The patient has the following: COVID-19 Immunization Status Overdue - Covid-19 Vaccine ( season) Overdue since 11/26/2023 12/19/2022 Imm Admin: COVID-19 vaccine, age 12+ yr, season (PFIZER-BIONTECH) 12/19/2022 Imm Admin: COVID-19 vaccine, age 12+ yr, season (MODERNA) 05/04/2022 Imm Admin: COVID-19 vaccine, age 12+ yr, bivalent (PFIZER-BIONTECH) Only the first 3 history entries have been loaded, but more history exists. CHIEF COMPLAINT: Pre-op exam HPI: Alberto Rodriguez is a 88 year old seen for PAC due to scheduled above surgery because of breast cancer. 10/19/2023, Dr. Kimberly Chavez HISTORY of PRESENT ILLNESS: Alberto Rodriguez is a 87 year old female who presents for an evaluation of a new diagnosis of breast cancer. 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 ER 99 WY 99 Her2 FISH negative SA: TOP HAT ALH 10/21/23: MRI scheduled HISTORY OF BREAST PROCEDURE(S): ~22 years ago right excisional biopsy- for a MG abnormality- all was benign. 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 Neurological: No history of TIA's, stroke, FUNCTIONAL ARCHITECT tumor, impaired sensorium, hemiplegia, paraplegia or quadraplegia. No neurological symptoms or problems. Respiratory: No history of current cough or dyspnea, or pneumonia in the past 6 weeks. No history of respiratory/pulmonary symptoms or problems. Cardiovascular: Positive for: hyperlipidemia (on rx) and hypertension (on rx) Negative for: anticoagulation therapy, arrhythmia, atrial fibrillation, CAD, chest pain, CHF, congenital heart defect, DVT/PE, recent OK, murmur/valvular heart disease, PVD, open heart surgery and valve surgery. GI: No history of GI symptoms or problems. No history of esophageal varices, recent ascites, or ETOH greater than 2 drinks per day. : No history of dysuria, frequency or incontinence, stones or chronic kidney disease. No difficulty urinating, nocturia > 1 time per night or hematuria. 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 Endocrine: No history of diabetes. Has not taken steroids within the past 30 days. No history of endocrinological symptoms or problems. Hematology: Positive for: anemia and iron deficiency anemia. Negative for: bruises/bleeds easily, transfusion of at least 4 units within 72 hours prior to surgery and chronic anti-coagulation/platelet meds. Oncology: See HPI. Psych: Positive for: depression (on rx). Musculoskeletal: Positive for: swelling (on rx, every other day). Skin: Negative for lesions, rash and itching. 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 COLONOSCOPY FLX DX W/COLLJ SPEC WHEN PFRMD 07/18/2003 cecal lipoma, otherwise normal COLONOSCOPY FLX DX W/COLLJ SPEC WHEN PFRMD 06/27/2017 Colonoscopy EGD TRANSORAL BIOPSY SINGLE/MULTIPLE 07/27/2007 Doyle-gastritis LAPS SURG CHOLECYSTECTOMY W/CHOLANGIOGRAPHY 08/02/2007 RPR 1ST INCAL/VNT HERNIA INCARCERATED 08/02/2007 TOTAL ABDOMINAL HYSTERECT W/WO RMVL TUBE OVARY Hysterectomy, JAGRUTI FAMILY HISTORY Problem Relation Age of Onset Heart disease Mother Asthma Father Breast Cancer Sister Breast Cancer Sister Leukemia Sister Heart Brother Stroke Brother Diabetes Maternal Grandmother Colon Cancer Paternal Grandmother Social History Tobacco Use Smoking status: Never Smokeless tobacco: Never Vaping Use Vaping status: Never Used Substance Use Topics Alcohol use: Yes Comment: occasionally wine Drug use: No Prior to Admission medications as of 12/08/23 1343 Medication Sig Last Dose Taking losartan (COZAAR) 25 mg tablet Take 1 tablet by mouth once daily. Taking Yes pravastatin (PRAVACHOL) 40 mg tablet Take 1 tablet by mouth daily at bedtime. Taking Yes amLODIPine (NORVASC) 2.5 mg tablet Take 1 tablet by mouth once daily. Taking Yes nortriptyline (PAMELOR) 50 mg capsule TAKE ONE CAPSULE BY MOUTH EVERY DAY AT BEDTIME Taking Yes gabapentin (NEURONTIN) 100 mg capsule Take 1 capsule by mouth daily at bedtime for 180 days. Taking Yes potassium chloride (K-TAB) 10 mEq tablet Take 1 tablet by mouth daily with breakfast. On days she takes lasix Taking Yes furosemide (LASIX) 20 mg tablet take 1 tablet by mouth every other day Taking Yes >Zippered Compression Knee High 30-40 mm custom CUSTOM MEASURE FOR KNEE HIGH HO COMPRESSION STOCKINGS, 30-40 MM, WITH ZIPPERS PLEASE. IF UNABLE, PLEASE REFER TO [facility] AT [facility]. DX: EDEMA Taking Yes multivitamin tablet Take 1 tablet by mouth once daily. Taking Yes Aspirin 81 mg Tab Take 81 mg by mouth once daily. Taking Yes cholecalciferol (VITAMIN D3) 50 mcg (2,000 unit) tablet Take by mouth once daily. Taking Yes CALCIUM 500 MG TAB Take 1500mg daily when she remebers Taking Yes naproxen sodium(ALEVE 220 MG TAB) Take one(1) tablet twice daily.as necessary Taking Yes No medication comments found. ALLERGIES Allergen Reactions Vicodin [Hydrocodon* Intolerance Objective PHYSICAL EXAM: General: alert and oriented (x3) and healthy appearance. Pertinent negatives noted - not distressed. Skin: normal color, no rash or lesions. HEENT: EOM intact and pupils equal round. Pertinent negatives noted - no carotid bruit. Cardiovascular: Pulse characterized as regular.Positive for murmur. Respiratory: normal breath sounds, no wheezes or crackles. No chest wall deformity or tenderness. Abdomen: soft. Pertinent negatives noted - not tender. Extremities: no deformity, no edema or tenderness, no joint swelling or clubbing. Neurological: normal cognition and motor skills. Gait normal. No weakness or sensory deficit. PAIN ASSESSMENT: VITALS: BP 132/78 Pulse 89 Temp (Src) 97.8 (Temporal) Resp 14 Ht 5' 0 (1.52m) Wt 135 lb (61.2kg) SpO2 96% BMI 26.37 kg/(m^2). Diagnostic tests reviewed for today's visit: Lab Value Units Date High Low HB 11.2 g/dL 11/08/2023 15.5 11.5 HCT 35.6 % 11/08/2023 46.0 36.0 WBC 7.24 k/uL 11/08/2023 11.00 3.70 PLT 305 k/uL 11/08/2023 400 150 NA 140 mmol/L 07/11/2023 144 136 K 4.7 mmol/L 07/11/2023 5.1 3.7 GLUC 83 mg/dL 07/11/2023 99 74 BUN 19 mg/dL 07/11/2023 21 7 CREAT 1.00 mg/dL 07/11/2023 0.96 0.58 PTSEC No results within date range. INR No results within date range. APTT No results within date range. ALT 14 U/L 07/11/2023 38 7 AST 24 U/L 07/11/2023 35 13 TBILI 0.2 mg/dL 07/11/2023 1.3 0.2 TSH 4.470 mIU/L 07/11/2023 4.200 0.270 Lab Value Units Date High Low HCGQT No results within date range. UHCG No results within date range. HCG, BODY* No results within date range. Lab Value Units Date High Low ABORHD No results within date range. ABSCREEN No results within date range. Hemoglobin A1C (%) Date Value 07/11/2023 5.8 Recent Results (from the past 8760 hour(s)) ECG COMPLETE Collection Time: 12/08/23 2:19 PM Result Value Ventricular Rate 72 Atrial Rate 72 P-R Interval 150 QRS Duration 76 QT Interval 410 QTC Calculation (Bazett) 448 Calculated P [place] 67 Calculated R [place] 17 Calculated T [place] 22 Impression NORMAL SINUS RHYTHM NORMAL ECG No results found for this or any previous visit (from the past 72591 hour(s)). Instructions Given to Patient: Instructions located in the after visit summary. Patient given verbal and written preop instructions and voices comprehension and compliance. SIGNATURE: Elizabeth Smith APRN.CNP PATIENT NAME: Alberto Rodriguez DATE: December 08, 2023 TIME: 1:38 PM PAGER/CONTACT #: [facility] 12-08-2023 History and physical note Images from the original note were not included. [facility] HISTORY AND PHYSICAL EXAMINATION SERVICE DATE: 12/08/2023 SERVICE TIME: 2:17 PM PRIMARY CARE PHYSICIAN: Ramandeep Alvarez MD Assessment Patient has the following medical conditions which may affect kathy-operative course: Essential hypertension Assessment: controlled on rx Last 14 BP Last 14 Encounter BP Readings: Date: BP: 12/08/2023 132/78 11/08/2023 109/63 11/08/2023 104/63 09/15/2023 105/64 08/29/2023 112/64 07/11/2023 108/58 01/05/2023 123/61 09/30/2022 112/62 07/19/2022 108/64 07/08/2022 120/68 04/14/2022 118/72 12/21/2021 126/66 11/30/2021 114/70 06/18/2021 114/56 PURE HYPERCHOLESTEROLEM Assessment: c/w statin ESOPHAGEAL REFLUX Assessment: controlled on rx History of cerebral infarction Assessment: pt unaware of dx, found in [facility] with brain MRI 10/2021. Denies any deficits. Lives alone, very active. Murmur, cardiac Assessment: harsh murmur heard on exam, last echo with only trace to mild VHD, repeat echo ordered. Pt had negative stress test 2021, and today's EKG NSR. Pt denies palpitations, sob, orthopnea, GARCIA, new or worsening cardiac symptoms. MULTINODULAR GOITER (NONTOXIC) Assessment: hx, denies compressive symptoms, only imaging found was from 2008, no repeat noted in [facility] TSH Date Value Ref Range Status 07/11/2023 4.470 (H) 0.270 - 4.200 mIU/L Final 2008 Thyroid US The right lobe measured 5.2 x 1.4 x 1.8 cm. The right lobe has a heterogeneous echotexture with multiple nodules. There is some shadowing emanating from some of the nodules suggesting calcification. There is a hypoechoic nodule in the upper pole measuring 7 x 4 x 6 mm. There is a hypoechoic nodule in the midportion of the right lobe measuring 6 x 3 x 7 mm. There is a hypoechoic nodule in the posterior aspect of the midportion of the right lobe measuring 9 x 4 x 7 mm. There is also a nodule in the lower pole measuring 9 x 8 x 8 mm. The left lobe of the thyroid measured 4.9 x 1.5 x 1.8 cm. The left lobe has a heterogeneous echotexture and multiple nodules. There was also some shadowing from some of the nodules suggesting calcification. A nodule in the lower pole measured 6 x 6 x 6 mm, one in the midportion measured 12 x 8 x 12 mm and one in the mid portion measured 5 x 3 x 4 mm. The isthmus measured 2 mm in thickness. IMPRESSION: The findings are compatible with a multinodular goiter. Iron deficiency anemia Assessment: hx, following hematology Hemoglobin (g/dL) Date Value 11/08/2023 11.2 12/12/2019 12.4 Hematocrit (%) Date Value 11/08/2023 35.6 12/12/2019 40.9 WBC (k/uL) Date Value 11/08/2023 7.24 12/12/2019 6.43 Anxiety state Assessment: stable on rx per pt Osteopenia Assessment: taking supplements, no recent fx's Sharma Activity Status Index: METS: Climb a flight of stairs or walk up a hill (5.50 METs) DASI Score: 5.5 Patient denies any chest pain or undue shortness of breath with the above physical activity. Clinical Frailty Scale: 3. Well, with treated comorbid disease STOP-Bang Score: Has or is being treated for high blood pressure Patient over 50 years old Denies snoring loudly Denies feeling tired, fatigued, or sleepy during the daytime Has not been observed to stop breathing or choking/gasping during sleep BMI less than or equal to 35 kg/m^2 Does not have a large neck Non-male patient STOP-Bang Score: 2 Malnutrition Screening Tool: Recent weight loss without trying: No Eating poorly due to decreased appetite: No Weight Loss Score: 0 Appetite Score: 0 MST Score: 0 [id number] Score: Age: >=75 Sex: female CHF history: No Hypertension history: Yes Stroke/TIA/thromboembolism history: No Vascular disease history: No Diabetes history: No [id number] Score: 4 ARISCAT Score: Age: >80 Preoperative SpO2: >=96% Respiratory infection in the last month: No Preoperative anemia: No Surgical incision: peripheral Duration of surgery: <2 hrs Emergency procedure: No ARISCAT Score: 16 ANESTHESIA FINDINGS: Intubation History: No history of difficult intubation Significant Anesthesia Considerations: none Airway History: No history of difficult airway I - PHYSICAL EVALUATION AIRWAY Patient intubated: No. Tracheostomy tube not present Mallampati: III. TM distance: >3 FB. Neck ROM: full ROM without neurological symptoms. Mouth opening: adequate. Short neck: no. Thick neck: no Lemon present: no Lip Bite Test: I Microretrognathia/Micronagthia/Rec essed Chin: No DENTAL Dental findings: teeth intact. Dentures, upper: complete. Dentures, lower: partial. II - ANESTHESIA PLAN Anesthetic Plan: other Beta Raymundo Monitoring Plan Post Procedure Analgesic Plan Informed Consent Anesthetic risks, benefits, alternatives, personnel and consent discussed: yes. Patient / Responsible Libertarian agrees to proceed: yes Prepared for Surgery: optimally prepared for surgery, pending [see comment]. Labs and echo CONSULTS: Patient does not require consults for optimization at this time Planned Anesthetic: other anesthesia choice The Following Tests/Procedures Have Been Initiated: Orders Placed This Encounter >CBC + AUTO DIFF Standing Status: Future Standing Expiration Date: 03/08/2024 >CMP Standing Status: Future Standing Expiration Date: 03/08/2024 ECG COMPLETE Standing Status: Future Standing Expiration Date: 12/07/2024 ECHO Standing Status: Future Standing Expiration Date: 12/07/2024 Order Specific Question: Disease / Condition: Answer: Valve Disease Order Specific Question: Type: Answer: Squaxin Valvular Regurgitation Order Specific Question: Indication: Answer: Routine surveillance of mild valvular regurgitation (greater than 3yrs) REASON FOR VISIT: Alberto Rodriguez is a 88 year old female who is scheduled for Procedure(s): MASTECTOMY SIMPLE (Right) INTRAOPERATIVE ID OF SENTINEL LYMPH NODE(S) INCL'D INJECTION OF NON-RAD DYE WHEN PERFORMED (Right) BIOPSY NODE AXILLARY (Right) EXCISION BREAST LESION IDENTIFIED BY PREOPERATIVE PLACEMENT RADIOLOGICAL MARKER, OPEN, SINGLE LESION (Left) at the request of Dr. Kimberly Kwon, Loy Godoy MD for consultation. My final recommendation will be communicated back to the requesting physician by way of shared medical record or letter. Subjective The patient has the following: COVID-19 Immunization Status Overdue - Covid-19 Vaccine ( season) Overdue since 11/26/2023 12/19/2022 Imm Admin: COVID-19 vaccine, age 12+ yr, season (PFIZER-BIONTECH) 12/19/2022 Imm Admin: COVID-19 vaccine, age 12+ yr, season (MODERNA) 05/04/2022 Imm Admin: COVID-19 vaccine, age 12+ yr, bivalent (PFIZER-BIONTECH) Only the first 3 history entries have been loaded, but more history exists. CHIEF COMPLAINT: Pre-op exam HPI: Alberto Rodriguez is a 88 year old seen for PAC due to scheduled above surgery because of breast cancer. 10/19/2023, Dr. Kimberly Chavez HISTORY of PRESENT ILLNESS: Alberto Rodriguez is a 87 year old female who presents for an evaluation of a new diagnosis of breast cancer. 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 ER 99 [place] 99 Her2 FISH negative SA: TOP HAT ALH 10/21/23: MRI scheduled HISTORY OF BREAST PROCEDURE(S): ~22 years ago right excisional biopsy- for a MG abnormality- all was benign. 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 Neurological: No history of TIA's, stroke, FUNCTIONAL ARCHITECT tumor, impaired sensorium, hemiplegia, paraplegia or quadraplegia. No neurological symptoms or problems. Respiratory: No history of current cough or dyspnea, or pneumonia in the past 6 weeks. No history of respiratory/pulmonary symptoms or problems. Cardiovascular: Positive for: hyperlipidemia (on rx) and hypertension (on rx) Negative for: anticoagulation therapy, arrhythmia, atrial fibrillation, CAD, chest pain, CHF, congenital heart defect, DVT/PE, recent OK, murmur/valvular heart disease, PVD, open heart surgery and valve surgery. GI: No history of GI symptoms or problems. No history of esophageal varices, recent ascites, or ETOH greater than 2 drinks per day. : No history of dysuria, frequency or incontinence, stones or chronic kidney disease. No difficulty urinating, nocturia > 1 time per night or hematuria. 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 Endocrine: No history of diabetes. Has not taken steroids within the past 30 days. No history of endocrinological symptoms or problems. Hematology: Positive for: anemia and iron deficiency anemia. Negative for: bruises/bleeds easily, transfusion of at least 4 units within 72 hours prior to surgery and chronic anti-coagulation/platelet meds. Oncology: See HPI. Psych: Positive for: depression (on rx). Musculoskeletal: Positive for: swelling (on rx, every other day). Skin: Negative for lesions, rash and itching. 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 COLONOSCOPY FLX DX W/COLLJ SPEC WHEN PFRMD 07/18/2003 cecal lipoma, otherwise normal COLONOSCOPY FLX DX W/COLLJ SPEC WHEN PFRMD 06/27/2017 Colonoscopy EGD TRANSORAL BIOPSY SINGLE/MULTIPLE 07/27/2007 Doyle-gastritis LAPS SURG CHOLECYSTECTOMY W/CHOLANGIOGRAPHY 08/02/2007 RPR 1ST INCAL/VNT HERNIA INCARCERATED 08/02/2007 TOTAL ABDOMINAL HYSTERECT W/WO RMVL TUBE OVARY Hysterectomy, JAGRUTI FAMILY HISTORY Problem Relation Age of Onset Heart disease Mother Asthma Father Breast Cancer Sister Breast Cancer Sister Leukemia Sister Heart Brother Stroke Brother Diabetes Maternal Grandmother Colon Cancer Paternal Grandmother Social History Tobacco Use Smoking status: Never Smokeless tobacco: Never Vaping Use Vaping status: Never Used Substance Use Topics Alcohol use: Yes Comment: occasionally wine Drug use: No Prior to Admission medications as of 12/08/23 1343 Medication Sig Last Dose Taking losartan (COZAAR) 25 mg tablet Take 1 tablet by mouth once daily. Taking Yes pravastatin (PRAVACHOL) 40 mg tablet Take 1 tablet by mouth daily at bedtime. Taking Yes amLODIPine (NORVASC) 2.5 mg tablet Take 1 tablet by mouth once daily. Taking Yes nortriptyline (PAMELOR) 50 mg capsule TAKE ONE CAPSULE BY MOUTH EVERY DAY AT BEDTIME Taking Yes gabapentin (NEURONTIN) 100 mg capsule Take 1 capsule by mouth daily at bedtime for 180 days. Taking Yes potassium chloride (K-TAB) 10 mEq tablet Take 1 tablet by mouth daily with breakfast. On days she takes lasix Taking Yes furosemide (LASIX) 20 mg tablet take 1 tablet by mouth every other day Taking Yes >Zippered Compression Knee High 30-40 mm custom CUSTOM MEASURE FOR KNEE HIGH HO COMPRESSION STOCKINGS, 30-40 MM, WITH ZIPPERS PLEASE. IF UNABLE, PLEASE REFER TO [facility] AT [facility]. DX: EDEMA Taking Yes multivitamin tablet Take 1 tablet by mouth once daily. Taking Yes Aspirin 81 mg Tab Take 81 mg by mouth once daily. Taking Yes cholecalciferol (VITAMIN D3) 50 mcg (2,000 unit) tablet Take by mouth once daily. Taking Yes CALCIUM 500 MG TAB Take 1500mg daily when she remebers Taking Yes naproxen sodium(ALEVE 220 MG TAB) Take one(1) tablet twice daily.as necessary Taking Yes No medication comments found. ALLERGIES Allergen Reactions Vicodin [Hydrocodon* Intolerance Objective PHYSICAL EXAM: General: alert and oriented (x3) and healthy appearance. Pertinent negatives noted - not distressed. Skin: normal color, no rash or lesions. HEENT: EOM intact and pupils equal round. Pertinent negatives noted - no carotid bruit. Cardiovascular: Pulse characterized as regular.Positive for murmur. Respiratory: normal breath sounds, no wheezes or crackles. No chest wall deformity or tenderness. Abdomen: soft. Pertinent negatives noted - not tender. Extremities: no deformity, no edema or tenderness, no joint swelling or clubbing. Neurological: normal cognition and motor skills. Gait normal. No weakness or sensory deficit. PAIN ASSESSMENT: VITALS: BP 132/78 Pulse 89 Temp (Src) 97.8 (Temporal) Resp 14 Ht 5' 0 (1.52m) Wt 135 lb (61.2kg) SpO2 96% BMI 26.37 kg/(m^2). Diagnostic tests reviewed for today's visit: Lab Value Units Date High Low HB 11.2 g/dL 11/08/2023 15.5 11.5 HCT 35.6 % 11/08/2023 46.0 36.0 WBC 7.24 k/uL 11/08/2023 11.00 3.70 PLT 305 k/uL 11/08/2023 400 150 NA 140 mmol/L 07/11/2023 144 136 K 4.7 mmol/L 07/11/2023 5.1 3.7 GLUC 83 mg/dL 07/11/2023 99 74 BUN 19 mg/dL 07/11/2023 21 7 CREAT 1.00 mg/dL 07/11/2023 0.96 0.58 PTSEC No results within date range. INR No results within date range. APTT No results within date range. ALT 14 U/L 07/11/2023 38 7 AST 24 U/L 07/11/2023 35 13 TBILI 0.2 mg/dL 07/11/2023 1.3 0.2 TSH 4.470 mIU/L 07/11/2023 4.200 0.270 Lab Value Units Date High Low HCGQT No results within date range. UHCG No results within date range. HCG, BODY* No results within date range. Lab Value Units Date High Low ABORHD No results within date range. ABSCREEN No results within date range. Hemoglobin A1C (%) Date Value 07/11/2023 5.8 Recent Results (from the past 8760 hour(s)) ECG COMPLETE Collection Time: 12/08/23 2:19 PM Result Value Ventricular Rate 72 Atrial Rate 72 P-R Interval 150 QRS Duration 76 QT Interval 410 QTC Calculation (Bazett) 448 Calculated P [place] 67 Calculated R [place] 17 Calculated T [place] 22 Impression NORMAL SINUS RHYTHM NORMAL ECG No results found for this or any previous visit (from the past 20006 hour(s)). Instructions Given to Patient: Instructions located in the after visit summary. Patient given verbal and written preop instructions and voices comprehension and compliance. SIGNATURE: Elizabeth Smith APRN.CNP PATIENT NAME: Alberto Rodriguez DATE: December 08, 2023 TIME: 1:38 PM PAGER/CONTACT #: documented in this encounter [facility] 12-08-2023 Instructions Elizabeth Smith APRN.CNP - 12/08/2023 1:35 PM EDT Images from the original note were not included. [facility] PATIENT PREOPERATIVE INSTRUCTIONS Kimberly Chavez PA-C has scheduled you for your procedure at this surgery center: [facility]: [phone] --[id number] [place] [address] Location is near [facility]. Please read below carefully for your personalized instructions. Dietary Restrictions: - No solid food after midnight. - You may have 12 ounces of clear liquids (water, clear juices such as apple juice or gatorade, carbonated beverages, clear tea, black coffee, jello) until 2 hours before scheduled arrival at facility. Medications: Unless instructed differently below, stay on all of your medications until your surgery. If you start any new medications after today's visit, please contact your surgeon. Pre-Surgery Med Instructions Medication Instructions losartan (COZAAR) 25 mg tablet Do not take the day of surgery pravastatin (PRAVACHOL) 40 mg tablet Take the day of surgery with a small sip of water amLODIPine (NORVASC) 2.5 mg tablet Take the day of surgery with a small sip of water nortriptyline (PAMELOR) 50 mg capsule Do not take the day of surgery gabapentin (NEURONTIN) 100 mg capsule Take the day of surgery with a small sip of water potassium chloride (K-TAB) 10 mEq tablet Take the day of surgery with a small sip of water furosemide (LASIX) 20 mg tablet Do not take the day of surgery >Zippered Compression Knee High 30-40 mm custom multivitamin tablet Stop 7 days before surgery Aspirin 81 mg Tab Stop 7 days before surgery cholecalciferol (VITAMIN D3) 50 mcg (2,000 unit) tablet Stop 7 days before surgery CALCIUM 500 MG TAB Stop 7 days before surgery naproxen sodium(ALEVE 220 MG TAB) Stop 7 days before surgery If you start any new medications after today's visit, please contact the surgeon's office. Blood Thinning Medications: - Stop NSAIDS (Ibuprofen, Advil, Aleve, Motrin, Celebrex, Mobic, etc.) 7 days before surgery, as directed by your surgeon. - Stop Aspirin 7 days before surgery, as directed by your surgeon. - Stop Vitamin E, ALL multi-vitamins, herbals and dietary supplements 7 days before surgery. - You may take Tylenol (Acetaminophen) or any of your pain medications that do not contain aspirin or NSAIDS as needed. Important Reminders: - Candy, mints, and tobacco products are NOT permitted the morning of surgery. - Hearing aids, dentures and glasses may be worn the morning of surgery. - NO jewelry, body piercings, makeup, hairpins or contacts are to be worn the day of surgery. If you develop symptoms such as a fever, cold, or flu, or have other changes to your health within TWO DAYS of scheduled surgery or the morning of surgery, please contact the surgery center above. Personal Belongings: -Please have photo ID and insurance cards. -If you do not have a copy of advance directives on file with us, please bring a copy with you on the day of surgery. - Leave ALL valuables and money at home or with family members. For Outpatient Procedures: - YOU MUST HAVE A RESPONSIBLE DIRECTOR OF PUBLIC RELATIONS TAKE YOU HOME. A STEEPING PRESS TENDER OR MULTIGRAPHER CANNOT BE MADE A RESPONSIBLE DIRECTOR OF PUBLIC RELATIONS. - We recommend that a responsible person stays with you overnight to take care of you. - You cannot stay in a hotel alone after outpatient surgery. You will not be permitted to have your surgery, if you do not have someone to take care of you. Arrival Time for Surgery: - The Surgery Center or hospital where you are having surgery will call the afternoon before surgery (or Monday for Monday surgery) with a scheduled arrival time. - If you have not heard by 4 pm, please contact the surgery center above. Please be aware that emergency situations arise, which may delay or change your surgical time. If this happens, we will notify you as soon as possible and regret any inconvenience. If you already have an Advance Directive, please fax a copy to [phone] or email to for it to be added to your chart. If you do not have an Advance Directive, you can find the appropriate form and more information at [email or web address]. We recommend that you complete the Advance Directive form found on the website and bring it with you the day of your surgery. It can be witnessed and scanned into your chart that day. Elizabeth Smith APRN.SANTO documented in this encounter [facility] 12-01-2023 Telephone encounter Note Spoke with patient and rescheduled as directed. Reny Lima [facility] 12-01-2023 Miscellaneous Notes Spoke with patient and rescheduled as directed. Reny Lima Per Dr. Ignacio- please move out OV with Dr. Ignacio 1-2 weeks. Melisa Pichardo LPN As far as Dr Delgado goes; it would be appropriate to reschedule 7-10 after surgery so we have her pathology back. Simple mastectomy scheduled for 12/18/2023. When would you like to see the patient (she won't be coming in as scheduled on 12/18)? Melisa Pichardo LPN Dr. Kwon's office called stating that patient is having surgery on 12/17. Patient is scheduled to see Dr. Ignacio and Jeff Velasquez on 12/18. Dr. Delgado on 12/20. Please advise when to reschedule. Okay to call patient. documented in this encounter [facility] 11-30-2023 Telephone encounter Note Per Dr. Ignacio- please move out OV with Dr. Ignacio 1-2 weeks. Melisa Pichardo LPN [facility] 11-29-2023 Telephone encounter Note [facility] closed, needing to go to [facility]. Bessie Mendez LPN [facility] 11-29-2023 Miscellaneous Notes [facility] closed, needing to go to [facility]. Bessie Mendez LPN Prescription Refill Information The patient has been identified by name and date of : Yes Caregiver verified no other encounters exist for this prescription request: Yes Caregiver confirmed with patient/requestor that no other refills are due, in the near future, with this provider at this time: Yes The last office visit in the department: Does the patient have a future office visit with this provider/department: Yes [facility]i would not forward these meds Requested Prescriptions Pending Prescriptions Disp Refills losartan (COZAAR) 25 mg tablet 90 tablet 3 Sig: Take 1 tablet by mouth once daily. pravastatin (PRAVACHOL) 40 mg tablet 90 tablet 3 Sig: Take 1 tablet by mouth daily at bedtime. amLODIPine (NORVASC) 2.5 mg tablet 90 tablet 3 Sig: Take 1 tablet by mouth once daily. nortriptyline (PAMELOR) 50 mg capsule 90 capsule 3 Sig: TAKE ONE CAPSULE BY MOUTH EVERY DAY AT BEDTIME Sherrie Haque November 25, 2023 9:25 AM documented in this encounter [facility] 11-29-2023 Telephone encounter Note As far as Dr Delgado goes; it would be appropriate to reschedule 7-10 after surgery so we have her pathology back. [facility] 11-28-2023 Telephone encounter Note Simple mastectomy scheduled for 12/18/2023. When would you like to see the patient (she won't be coming in as scheduled on 12/18)? Melisa Pichardo LPN [facility] 11-28-[address] Kwon's office called stating that patient is having surgery on 12/17. Patient is scheduled to see Dr. Ignacio and Jeff Velasquez on 12/18. Dr. Delgado on 12/20. Please advise when to reschedule. Okay to call patient. [facility] Work Phone: 11-27-2023 Telephone encounter Note I have reviewed and approved the localization plan. Images dated 11/20/2023 are annotated. Please note, patient has known right breast cancer for which mastectomy is planned. Radiologist: Clarisa Villegas MD [facility] Work Phone: 11-27-2023 Miscellaneous Notes I have reviewed and approved the localization plan. Images dated 11/20/2023 are annotated. Please note, patient has known right breast cancer for which mastectomy is planned. Radiologist: Clarisa Villegas MD LOCALIZATION IMAGE REVIEW (Please do NOT submit until entire workup complete) (if > 3 reflectors to be placed in one breast, please review with radiologist) Alberto Rodriguez [id number] 1935 WORK- UP COMPLETE? Yes Order Placed Yes Left - Site 1 Location 11oc 3cfn Clip Shape Q Clip Migration No Pathology \ALH Preferred Localization jazmyn Loy Kwon MD 9:52 AM documented in this encounter [facility] 11-25-2023 Telephone encounter Note Prescription Refill Information The patient has been identified by name and date of : Yes Caregiver verified no other encounters exist for this prescription request: Yes Caregiver confirmed with patient/requestor that no other refills are due, in the near future, with this provider at this time: Yes The last office visit in the department: Does the patient have a future office visit with this provider/department: Yes [facility] would not forward these meds Requested Prescriptions Pending Prescriptions Disp Refills losartan (COZAAR) 25 mg tablet 90 tablet 3 Sig: Take 1 tablet by mouth once daily. pravastatin (PRAVACHOL) 40 mg tablet 90 tablet 3 Sig: Take 1 tablet by mouth daily at bedtime. amLODIPine (NORVASC) 2.5 mg tablet 90 tablet 3 Sig: Take 1 tablet by mouth once daily. nortriptyline (PAMELOR) 50 mg capsule 90 capsule 3 Sig: TAKE ONE CAPSULE BY MOUTH EVERY DAY AT BEDTIME Sherrie Haque November 25, 2023 9:25 AM [facility] 11-23-2023 Telephone encounter Note Attempted to contact patient re: surgery date Left detailed VM Requested callback for confirmation Surgery date: 12/17 Kimberly Chavez PA-C November 23, 2023 2:46 PM [facility] Work Phone: 11-23-2023 Miscellaneous Notes Attempted to contact patient re: surgery date Left detailed VM Requested callback for confirmation Surgery date: 12/17 Kimberly Chavez PA-C November 23, 2023 2:46 PM documented in this encounter [facility] 11-23-2023 Telephone encounter Note LOCALIZATION IMAGE REVIEW (Please do NOT submit until entire workup complete) (if > 3 reflectors to be placed in one breast, please review with radiologist) Alberto Rodriguez [id number] 1935 WORK- UP COMPLETE? Yes Order Placed Yes Left - Site 1 Location 11oc 3cfn Clip Shape Q Clip Migration No Pathology \ALH Preferred Localization jazmyn Loy Kwon MD 9:52 AM [facility] Work Phone: 11-23-2023 Telephone encounter Note reached patient this morning reviewed all of the biopsies she has had and the corresponding path reports multiple questions answered and clarified will proceed with scheduling R-SM-SLNB and LEFT JAZMYN excisional biopsy questions answered Loy Kwon MD 9:53 AM [facility] 11-23-2023 Miscellaneous Notes reached patient this morning reviewed all of the biopsies she has had and the corresponding path reports multiple questions answered and clarified will proceed with scheduling R-SM-SLNB and LEFT JAZMYN excisional biopsy questions answered Loy Kwon MD 9:53 AM documented in this encounter [facility] 11-22-2023 Telephone encounter Note Pt returning call from Dr. Kwon she is available now at [phone], she is requesting to speak with Dr. Kwon. [facility] 11-22-2023 Miscellaneous Notes Pt returning call from Dr. Kwon she is available now at [phone], she is requesting to speak with Dr. Kwon. documented in this encounter [facility] 11-22-2023 Telephone encounter Note LVM - calling to review recent MR biopsy result asked her to return my call Loy Kwon MD 8:41 AM [facility] Work Phone: 11-22-2023 Miscellaneous Notes LVM - calling to review recent MR biopsy result asked her to return my call Loy Kwon MD 8:41 AM documented in this encounter [facility] 11-20-2023 History of Present illness Narrative Radiology Service Progress Note DATE OF SERVICE: November 20, 2023 TIME: 1:34 PM PATIENT IDENTITY VERIFICATION COMPLETED USING TWO (2) STANDARD IDENTIFIERS: Name and Date of confirmed by patient verbally. FALL SCREENING: Has the patient had 2 falls in the last year or 1 fall with injury or currently using an Ambulatory Assistive Device (Walker, Cane, Wheelchair, Crutches, etc.)? No PATIENT GENDER DATA: Female. status: : No status: NO. PATIENT RELEVANT IMPLANT DATA REVIEWED: Yes PATIENT PRESENTS WITH AN IMPLANTABLE OR ATTACHED INTELLIGENCE OPERATIONS SPECIALIST: No ALLERGIES: Reviewed and unchanged CONTRAST ALLERGY: NO. EXAM: MRI - CONTRAST TYPE: GROUP II PERIPHERAL IV DATA: Ambulatory: A peripheral IV was started in the Left antecubital site with a Angio cath: 22 gauge. RADIOLOGY DEPARTMENT: MR; Exam(s) Completed: Chest: Breast Left MRI Breast Biopsy Aftercare instructions given SIGNATURE: RT Dot(Lianna) PATIENT NAME: Alberto Rodriguez DATE: November 20, 2023 TIME: 1:34 PM documented in this encounter [facility] 11-20-2023 Note HNO ID: [id number] Author: JU ABBOTT RT(R) Service: Radiology Author Type: Technologist Type: Progress Notes Filed: 11/20/2023 13:40 Note Text: Radiology Service Progress Note DATE OF SERVICE: November 20, 2023 TIME: 1:34 PM PATIENT IDENTITY VERIFICATION COMPLETED USING TWO (2) STANDARD IDENTIFIERS: Name and Date of confirmed by patient verbally. FALL SCREENING: Has the patient had 2 falls in the last year or 1 fall with injury or currently using an Ambulatory Assistive Device (Walker, Cane, Wheelchair, Crutches, etc.)? No PATIENT GENDER DATA: Female. status: : No status: NO. PATIENT RELEVANT IMPLANT DATA REVIEWED: Yes PATIENT PRESENTS WITH AN IMPLANTABLE OR ATTACHED INTELLIGENCE OPERATIONS SPECIALIST: No ALLERGIES: Reviewed and unchanged CONTRAST ALLERGY: NO. EXAM: MRI - CONTRAST TYPE: GROUP II PERIPHERAL IV DATA: Ambulatory: A peripheral IV was started in the Left antecubital site with a Angio cath: 22 gauge. RADIOLOGY DEPARTMENT: MR; Exam(s) Completed: Chest: Breast Left MRI Breast Biopsy Aftercare instructions given SIGNATURE: RT Dot(Lianna) PATIENT NAME: Alberto Rodriguez DATE: November 20, 2023 TIME: 1:34 PM [facility] 11-14-2023 Note HNO ID: [id number] Author: ?, ?, ? Service: ? Author Type: ? Type: Progress Notes Filed: 11/14/2023 11:01 Note Text: Alberto Rodriguez is identified through a medication adherence outreach initiative based on pharmacy claims data from [employer] (insurer) for Statin medication(s). Patient is reviewed 11/14/23 due to medication adherence concerns with the following medications (name, strength, sig): pravastatin 40mg, take 1 tablet daily. Per data/report, last fill date and days supply: due 11/13/23 Per reconcile dispense, last fill date and days supply: filled 08/15/23 for 90 days Per call to pharmacy, last picked up date and days supply: n/a Contacted patient: Spoke to patient Outcome of review/outreach: (choose outcome source and status) -she said she has about a week left, she will call when she needs it Juan Jose Acevedo [facility] 11-14-2023 History of Present illness Narrative Alberto Rodriguez is identified through a medication adherence outreach initiative based on pharmacy claims data from [employer] (insurer) for Statin medication(s). Patient is reviewed 11/14/23 due to medication adherence concerns with the following medications (name, strength, sig): pravastatin 40mg, take 1 tablet daily. Per data/report, last fill date and days supply: due 11/13/23 Per reconcile dispense, last fill date and days supply: filled 08/15/23 for 90 days Per call to pharmacy, last picked up date and days supply: n/a Contacted patient: Spoke to patient Outcome of review/outreach: (choose outcome source and status) -she said she has about a week left, she will call when she needs it Juan Jose Acevedo documented in this encounter [facility] 11-14-2023 Note Patient Outreach ( POHE) ALBERTO RODRIGUEZ ([id number]) 1935 F Date Time Provider Department 11/14/23 RAMANDEEP ALVAREZ During your visit today, we recorded the following information about you: Juan Jose Acevedo 11/14/2023 11:01 AM Signed Alberto Rodriguez is identified through a medication adherence outreach initiative based on pharmacy claims data from [employer] (insurer) for Statin medication(s). Patient is reviewed 11/14/23 due to medication adherence concerns with the following medications (name, strength, sig): pravastatin 40mg, take 1 tablet daily. Per data/report, last fill date and days supply: due 11/13/23 Per reconcile dispense, last fill date and days supply: filled 08/15/23 for 90 days Per call to pharmacy, last picked up date and days supply: n/a Contacted patient: Spoke to patient Outcome of review/outreach: (choose outcome source and status) -she said she has about a week left, she will call when she needs it Juan Jose Acevedo Allergies As of Date: 11/14/2023 Noted Allergy Reaction VICODIN (HYDROCODONE-ACETAMINOPHE*04/27/19 10 5 - Intolerance Date Reviewed: 11/08/2023 Reviewed by: Deshaun Kemp MA - Fully Assessed Reason for Visit: Allied Health Visit [5] Cmt: Medication Adherence Outreach Prescriptions as of 11/14/2023 - nystatin-triamcinolone (MYCOLOG) ointment Apply sparingly to red areas both groins twice daily for irritation/infection. - gabapentin (NEURONTIN) 100 mg capsule Take 1 capsule by mouth daily at bedtime for 180 days. - nortriptyline (PAMELOR) 50 mg capsule TAKE ONE CAPSULE BY MOUTH EVERY DAY AT BEDTIME - pravastatin (PRAVACHOL) 40 mg tablet Take 1 tablet by mouth daily at bedtime. - losartan (COZAAR) 25 mg tablet Take 1 tablet by mouth once daily. - potassium chloride (K-TAB) 10 mEq tablet Take 1 tablet by mouth daily with breakfast. On days she takes lasix - furosemide (LASIX) 20 mg tablet take 1 tablet by mouth every other day - amLODIPine (NORVASC) 2.5 mg tablet Take 1 tablet by mouth once daily. - >Zippered Compression Knee High 30-40 mm custom CUSTOM MEASURE FOR KNEE HIGH HO COMPRESSION STOCKINGS, 30-40 MM, WITH ZIPPERS PLEASE. IF UNABLE, PLEASE REFER TO [facility] AT [facility]. DX: EDEMA - multivitamin tablet Take 1 tablet by mouth once daily. - Aspirin 81 mg Tab Take 81 mg by mouth once daily. - cholecalciferol (VITAMIN D3) 50 mcg (2,000 unit) tablet Take by mouth once daily. - CALCIUM 500 MG TAB Take 1500mg daily when she remebers - naproxen sodium(ALEVE 220 MG TAB) Take one(1) tablet twice daily.as necessary Problem List As Of Date 11/14/2023 Noted Resolved PAIN IN LIMB [M79.609] Iron deficiency anemia [D50.9] PURE HYPERCHOLESTEROLEM [E78.00] Anxiety state [F41.1] Urinary tract infection, site not specified [N3* 12/30/2015 Disorder of bone and cartilage [M89.9, M94.9] 05/02/2005 LIPOMA SKIN NEC [D17.39] 05/02/2005 ESOPHAGEAL REFLUX [K21.9] 05/02/2005 PAIN ABDOMEN( Right Upper Quadrant) [R10.11] 07/16/2007 GASTRITIS ANTRAL( W/O Hemorrhage) [K29.60] 07/27/2007 ACUTE GASTRITIS W/O HEMORRHAGE [K29.00] 07/27/2007 CHOLECYSTITIS SEE ALSO GALLBLADDER CHRONIC [K*08/13/2007 Dysuria [R30.0] 08/16/2007 06/27/2014 MULTINODULAR GOITER (NONTOXIC) [E04.2] 10/30/2008 Hot flash, menopausal [N95.1] 06/21/2011 06/27/2014 PHN (postherpetic neuralgia) [B02.29] 02/06/2012 Postherpetic neuralgia [B02.29] 06/14/2012 06/27/2014 Pinched nerve in neck [G58.9] 01/31/2018 Hot flashes [R23.2] 09/21/2018 Essential hypertension [I10] 04/14/2022 Pain of left hip joint [M25.552] 07/19/2022 Encounter Status:Closed by JUAN JOSE ACEVEDO on 11/14/23 [facility] 11-08-2023 Note HNO ID: [id number] Author: LANEY IGNACIO, DO Service: ? Author Type: Physician Type: Progress Notes Filed: 11/08/2023 15:56 Note Text: Consulted for breast cancer. The impression and plan will be communicated by way of the shared electronic record. HPI: The patient is an 88-year-old female with a past medical history as outlined below. Stereotactic right breast biopsy 10/04/2023. Pathology: Right breast, anterior, calcifications, stereotactic-guided core biopsy, with tophat clip placement (A): - Atypical lobular hyperplasia (ALH). - Fibrocystic changes, including usual ductal hyperplasia (UDH), dense stromal fibrosis, cysts, and apocrine metaplasia, and pseudoangiomatous stromal hyperplasia (PASH). - Microcalcifications in non-neoplastic breast epithelium. - Please see Comment I. 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 - Microcalcifications in lobular neoplasia and non-neoplastic breast epithelium.' Positive (greater than 10%) ER % staining 99 Estrogen Receptor (Staining Intensity) Strong Estrogen Receptor Internal Control Present and Stained as Expected Estrogen Receptor External Control Present and Stained as Expected WY status Positive (greater than or equal to 1%) WY % staining 99 Progesterone Receptor (Staining Intensity) Strong Progesterone Receptor Internal Control Present and Stained as Expected Progesterone Receptor External Control Present and Stained as Expected HER2 IHC Status Equivocal for HER2 Overexpression HER2 IHC Score 2+ Tumor Type Primary Invasive Breast Carcinoma Breast Tumor Grade Not Graded INTERPRETATION: NEGATIVE for HER2 (ERBB2) GENE AMPLIFICATION Ultrasound right axilla 10/19/2023 showed no evidence of adenopathy. Multiple various sized nodes were observed but had benign characteristics. MRI breasts 10/23/2023: IMPRESSION: SUSPICIOUS 1. 1.3 cm area of abnormal enhancement in the upper inner left breast, indeterminate for malignancy. Second look ultrasound is recommended to facilitate possible ultrasound guided biopsy. If not seen sonographically, an MRI guided biopsy would be recommended. 2. 3.8 cm area of abnormal combined mass and nonmasslike enhancement with mixed washout and persistent enhancement kinetics in the 8-10:00 right breast, at site of biopsy-proven malignancy. Additional 2.4 cm area of nonmasslike enhancement in the retroareolar right breast with adjacent biopsy marking clip demonstrating atypical lobular hyperplasia; this area remains somewhat suspicious/indeterminate. When including both abnormal areas of enhancement, total abnormal enhancement would span 6.4 cm. Patient has surgical/oncologic follow-up. 3. Marked background parenchymal enhancement limits sensitivity of MRI. 4. No lymphadenopathy. MRI guided biopsy with clip placement of LEFT breast lesion at 11:00 3 cm from the nipple on 11/06/2023. Pathology: FINAL DIAGNOSIS Left breast, 11:00, 3cmfn, 0.9cm x 0.9cm x 0.6cm mass, ultrasound-guided core biopsy, with Q clip placement: - Focal atypical lobular hyperplasia (ALH), columnar cell change, and dense stromal fibrosis. Scheduled for repeat :MRI biopsy with clip placement 11/19. She lives in [place]. . Has close friend. Fully capable of ADLs and IADLs. Cares for home and yard. Has been diagnosed with anemia in the past. Most recent CBC was 2 months ago indicating moderate anemia. Borderline microcytic indexes. PAST MEDICAL HISTORY No date: Anxiety state, unspecified 10/04/2023: Breast cancer (HCC) Comment: right 05/02/2005: Disorder of bone and cartilage, unspecified No date: Iron deficiency anemias 05/02/2005: Lipoma of other skin and subcutaneous tissue No date: Pain in limb 2011: Pneumonia No date: PURE HYPERCHOLESTEROLEM No date: Pure hypercholesterolemia No date: Urinary tract infection, site not specified PAST SURGICAL HISTORY 10/04/2023: BX OF BREAST; INCISIONAL; Right Comment: ALH anterior 10/04/2023: BX OF BREAST; INCISIONAL; Right Comment: posterior at least microinvasive carcinoma background of lobular neoplasia 07/18/2003: COLONOSCOPY FLX DX W/COLLJ SPEC WHEN PFRMD Comment: cecal lipoma, otherwise normal 06/27/2017: COLONOSCOPY FLX DX W/COLLJ SPEC WHEN PFRMD Comment: Colonoscopy 07/27/2007: EGD TRANSORAL BIOPSY SINGLE/MULTIPLE Comment: Doyle-gastritis 08/02/2007: LAPS SURG CHOLECYSTECTOMY W/CHOLANGIOGRAPHY 08/02/2007: RPR 1ST INCAL/VNT HERNIA INCARCERATED No date: TOTAL ABDOMINAL HYSTERECT W/WO RMVL TUBE OVARY Comment: Hysterectomy, JAGRUTI ALLERGIES Allergen Reactions Vicodin [Hydrocodon* Intolerance Current Outpatient Medications Medication Sig gabapentin (NEURONTIN) 100 mg capsule Take 1 capsule by mouth daily at bedtime for 180 (more content not included)... [facility] 11-08-2023 History of Present illness Narrative Consulted for breast cancer. The impression and plan will be communicated by way of the shared electronic record. HPI: The patient is an 88-year-old female with a past medical history as outlined below. Stereotactic right breast biopsy 10/04/2023. Pathology: Right breast, anterior, calcifications, stereotactic-guided core biopsy, with tophat clip placement (A): - Atypical lobular hyperplasia (ALH). - Fibrocystic changes, including usual ductal hyperplasia (UDH), dense stromal fibrosis, cysts, and apocrine metaplasia, and pseudoangiomatous stromal hyperplasia (PASH). - Microcalcifications in non-neoplastic breast epithelium. - Please see Comment I. 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 - Microcalcifications in lobular neoplasia and non-neoplastic breast epithelium.' Positive (greater than 10%) ER % staining 99 Estrogen Receptor (Staining Intensity) Strong Estrogen Receptor Internal Control Present and Stained as Expected Estrogen Receptor External Control Present and Stained as Expected WY status Positive (greater than or equal to 1%) WY % staining 99 Progesterone Receptor (Staining Intensity) Strong Progesterone Receptor Internal Control Present and Stained as Expected Progesterone Receptor External Control Present and Stained as Expected HER2 IHC Status Equivocal for HER2 Overexpression HER2 IHC Score 2+ Tumor Type Primary Invasive Breast Carcinoma Breast Tumor Grade Not Graded INTERPRETATION: NEGATIVE for HER2 (ERBB2) GENE AMPLIFICATION Ultrasound right axilla 10/19/2023 showed no evidence of adenopathy. Multiple various sized nodes were observed but had benign characteristics. MRI breasts 10/23/2023: IMPRESSION: SUSPICIOUS 1. 1.3 cm area of abnormal enhancement in the upper inner left breast, indeterminate for malignancy. Second look ultrasound is recommended to facilitate possible ultrasound guided biopsy. If not seen sonographically, an MRI guided biopsy would be recommended. 2. 3.8 cm area of abnormal combined mass and nonmasslike enhancement with mixed washout and persistent enhancement kinetics in the 8-10:00 right breast, at site of biopsy-proven malignancy. Additional 2.4 cm area of nonmasslike enhancement in the retroareolar right breast with adjacent biopsy marking clip demonstrating atypical lobular hyperplasia; this area remains somewhat suspicious/indeterminate. When including both abnormal areas of enhancement, total abnormal enhancement would span 6.4 cm. Patient has surgical/oncologic follow-up. 3. Marked background parenchymal enhancement limits sensitivity of MRI. 4. No lymphadenopathy. MRI guided biopsy with clip placement of LEFT breast lesion at 11:00 3 cm from the nipple on 11/06/2023. Pathology: FINAL DIAGNOSIS Left breast, 11:00, 3cmfn, 0.9cm x 0.9cm x 0.6cm mass, ultrasound-guided core biopsy, with Q clip placement: - Focal atypical lobular hyperplasia (ALH), columnar cell change, and dense stromal fibrosis. Scheduled for repeat :MRI biopsy with clip placement 11/19. She lives in [place]. . Has close friend. Fully capable of ADLs and IADLs. Cares for home and yard. Has been diagnosed with anemia in the past. Most recent CBC was 2 months ago indicating moderate anemia. Borderline microcytic indexes. PAST MEDICAL HISTORY No date: Anxiety state, unspecified 10/04/2023: Breast cancer (HCC) Comment: right 05/02/2005: Disorder of bone and cartilage, unspecified No date: Iron deficiency anemias 05/02/2005: Lipoma of other skin and subcutaneous tissue No date: Pain in limb 2011: Pneumonia No date: PURE HYPERCHOLESTEROLEM No date: Pure hypercholesterolemia No date: Urinary tract infection, site not specified PAST SURGICAL HISTORY 10/04/2023: BX OF BREAST; INCISIONAL; Right Comment: ALH anterior 10/04/2023: BX OF BREAST; INCISIONAL; Right Comment: posterior at least microinvasive carcinoma background of lobular neoplasia 07/18/2003: COLONOSCOPY FLX DX W/COLLJ SPEC WHEN PFRMD Comment: cecal lipoma, otherwise normal 06/27/2017: COLONOSCOPY FLX DX W/COLLJ SPEC WHEN PFRMD Comment: Colonoscopy 07/27/2007: EGD TRANSORAL BIOPSY SINGLE/MULTIPLE Comment: Doyle-gastritis 08/02/2007: LAPS SURG CHOLECYSTECTOMY W/CHOLANGIOGRAPHY 08/02/2007: RPR 1ST INCAL/VNT HERNIA INCARCERATED No date: TOTAL ABDOMINAL HYSTERECT W/WO RMVL TUBE OVARY Comment: Hysterectomy, JAGRUTI ALLERGIES Allergen Reactions Vicodin [Hydrocodon* Intolerance Current Outpatient Medications Medication Sig gabapentin (NEURONTIN) 100 mg capsule Take 1 capsule by mouth daily at bedtime for 180 days. nortriptyline (PAMELOR) 50 mg capsule TAKE ONE CAPSULE BY MOUTH EVERY DAY AT BEDTIME pravastatin (PRAVACHOL) 40 mg tablet Take 1 tablet by mouth daily at bedtime. losartan (COZAAR) 25 mg tablet Take 1 tablet by mouth once daily. potassium chloride (K-TAB) 10 mEq tablet Take 1 tablet by mouth daily with breakfast. On days she takes lasix furosemide (LASIX) 20 mg tablet take 1 tablet by mouth every other day amLODIPine (NORVASC) 2.5 mg tablet Take 1 tablet by mouth once daily. multivitamin tablet Take 1 tablet by mouth once daily. Aspirin 81 mg Tab Take 81 mg by mouth once daily. cholecalciferol (VITAMIN D3) 50 mcg (2,000 unit) tablet Take by mouth once daily. CALCIUM 500 MG TAB Take 1500mg daily when she remebers naproxen sodium(ALEVE 220 MG TAB) Take one(1) tablet twice daily.as necessary iv contrast (will be provided with radiology test) MRI LT Breast Bx Inject, intravenously, once for 1 dose. No IV access, insert saline lock prior to the beginning of sedation, infusion, injection of imaging exam. Discontinue saline lock post exam. If Pt has a central line or IVAD, may access for administration according to line specific nursing protocol. Once exam is complete flush line and de-access according to line specific nursing protocol in the MR contrast administration guidelines link nystatin-triamcinolone (MYCOLOG) ointment Apply sparingly to red areas both groins twice daily for irritation/infection. >Zippered Compression Knee High 30-40 mm custom CUSTOM MEASURE FOR KNEE HIGH HO COMPRESSION STOCKINGS, 30-40 MM, WITH ZIPPERS PLEASE. IF UNABLE, PLEASE REFER TO [facility] AT [facility]. DX: EDEMA No current facility-administered medications for this visit. Social History Tobacco Use Smoking status: Never Smokeless tobacco: Never Vaping Use Vaping Use: Never used Substance Use Topics Alcohol use: Yes Comment: occasionally wine Drug use: No Family History Problem Relation Age of Onset Heart disease Mother Asthma Father Breast Cancer Sister Breast Cancer Sister Leukemia Sister Heart Brother Stroke Brother Diabetes Maternal Grandmother Colon Cancer Paternal Grandmother ROS: Constitutional: No fever. No drenching night sweats. Normal appetite. No unexplained weight loss. No significant fatigue. Neuro: No recent MARTIN, vertigo, dizziness or imbalance. No symptoms of sensory neuropathy. HEENT: No recent change in voice, vision or hearing. Resp: No cough, wheeze of hemoptysis. No shortness of breath at rest. No GARCIA. CVS: No exertional chest pain, PND or orthopnea. GI: No dysgeusia. No symptoms of stomatitis. No dysphagia or odynophagia. No reflux, n/v, change in bowel habits. No abdominal pain, bloating or distension. No black or bloody stools. : No dysuria or gross hematuria. No symptoms of bladder outlet obstruction. Endo: No hot flashes. No polyuria or polydipsia. No heat or cold intolerance. Musculoskeletal: No bone, back, joint and muscular pain. Derm: No current rash. No history of jaundice. No diffuse pruritis. Heme: No unusual bleeding and unexplained bruising. Psych: Normal mood. PHYSICAL EXAM: Vitals: Blood pressure 104/63, pulse 85, temperature 36.8 C (98.3 F), temperature source Temporal, height 153 cm (5' 0.24), weight 60.8 kg (134 lb), SpO2 94%. Well-appearing and in no acute distress. EYES: Sclerae are anicteric bilaterally. LYMPHATIC: There is no palpable cervical, supraclavicular or axillary adenopathy. RESPIRATORY: Inspiratory breath sounds are of normal intensity in all fleming. CARDIOVASCULAR: Rhythm is regular. BREAST: Deferred. ABDOMEN: The abdomen is nondistended. Extremities: No swelling or edema. SKIN: No jaundice. ASSESSMENT/PLAN: (C50.411, Z17.0) Malignant neoplasm of upper-outer quadrant of right breast in female, estrogen receptor positive (HCC) (primary encounter diagnosis) Assessment: -88-year-old female with screening detected at least microinvasive carcinoma of the right breast, lobular phenotype. -Requires repeat biopsy left breast. -We discussed the adjuvant treatment modalities of breast cancer including radiation and hormonal therapy. Plan: -Already scheduled for MRI guided repeat left breast biopsy with clip placement on 11/19. -Surgical plan to follow. -Office visit week of 12/17 to review pathology and plan of care. (D64.9) Anemia, unspecified type Assessment: -Low MCH borderline low MCV. Suggestive of iron deficiency. Plan: -CBC with iron studies today. Further workup pending results of those tests. I spent a total of 30 minutes on the date of the service which included preparing to see the patient, [id number] patient care, completing clinical documentation, obtaining and/or reviewing separately obtained history, performing a medically appropriate examination, counseling and educating the patient/family/caregiver, ordering medications, tests, or procedures, communicating with other HCPs (not separately reported), and communicating results to the patient/family/caregiver. Laney Ignacio DO documented in this encounter [facility] 11-08-2023 Note HNO ID: [id number] Author: JILLIAN DELGADO MD Service: ? Author Type: Physician Type: Progress Notes Filed: 11/10/2023 11:37 Note Text: Radiation Oncology - New Patient/Consult Note PATIENT NAME: Alberto Rodriguez PATIENT REQUESTING PROVIDER: Dr. 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 It's ER positive (99%, strong), WY positive (99%, strong), and Her2 2+ and FISH negative. HPI: 88 year old female who presents with above diagnosis, for an opinion regarding the role of radiation therapy in the management of the patient's disease. Final recommendations will be communicated back to the requesting physician by way of the shared medical record, or letter to requesting physician via [place] mail. 88 year old woman who had an abnormal screening mammogram on 07/28/23. There were grouped calcifications in the right breast upper outer posterior depth and grouped calcifications in the right breast central to the nipple in the retroareolar region. There was also possible asymmetry in the left breast middle depth inner region. US of the left breast on 08/22/23 showed a a benign 0.8 cm x 0.6 cm x 0.8 cm oval cyst in the left breast at 6 o'clock posterior depth. Stereotactic core biopsy of the right breast anterior lesion on 10/04/23 showed atypical lobular hyperplasia and Fibrocystic changes, including usual ductal hyperplasia. 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 It's ER positive (99%, strong), WY positive (99%, strong), and Her2 2+ and FISH negative. MRI breasts on 10/21/23 showed 1.3 cm area of abnormal enhancement in the upper inner left breast, indeterminate for malignancy. In the right breast, there was 3.8 cm area of abnormal combined mass and nonmasslike enhancement with mixed washout at site of biopsy-proven malignancy. Additional 2.4 cm area of nonmasslike enhancement in the retroareolar right breast with adjacent biopsy marking clip demonstrating atypical lobular hyperplasia. No lymphadenopathy. US guided core biopsy of the left breast lesion at 11:00, 3cmfn on 11/06/23 showed focal atypical lobular hyperplasia (ALH), columnar cell change, and dense stromal fibrosis. She is scheduled to have MRI guided biopsy of the left breast lesion on 11/20/23. ALLERGIES Allergen Reactions Vicodin [Hydrocodon* Intolerance Current Outpatient Medications on File Prior to Visit Medication Sig nystatin-triamcinolone (MYCOLOG) ointment Apply sparingly to red areas both groins twice daily for irritation/infection. gabapentin (NEURONTIN) 100 mg capsule Take 1 capsule by mouth daily at bedtime for 180 days. nortriptyline (PAMELOR) 50 mg capsule TAKE ONE CAPSULE BY MOUTH EVERY DAY AT BEDTIME pravastatin (PRAVACHOL) 40 mg tablet Take 1 tablet by mouth daily at bedtime. losartan (COZAAR) 25 mg tablet Take 1 tablet by mouth once daily. potassium chloride (K-TAB) 10 mEq tablet Take 1 tablet by mouth daily with breakfast. On days she takes lasix furosemide (LASIX) 20 mg tablet take 1 tablet by mouth every other day amLODIPine (NORVASC) 2.5 mg tablet Take 1 tablet by mouth once daily. multivitamin tablet Take 1 tablet by mouth once daily. Aspirin 81 mg Tab Take 81 mg by mouth once daily. cholecalciferol (VITAMIN D3) 50 mcg (2,000 unit) tablet Take by mouth once daily. CALCIUM 500 MG TAB Take 1500mg daily when she remebers naproxen sodium(ALEVE 220 MG TAB) Take one(1) tablet twice daily.as necessary iv contrast (will be provided with radiology test) MRI LT Breast Bx Inject, intravenously, once for 1 dose. No IV access, insert saline lock prior to the beginning of sedation, infusion, injection of imaging exam. Discontinue saline lock post exam. If Pt has a central line or IVAD, may access for administration according to line specific nursing protocol. Once exam is complete flush line and de-access according to line specific nursing protocol in the MR contrast administration guidelines link >Zippered Compression Knee High 30-40 mm custom CUSTOM MEASURE FOR KNEE HIGH HO COMPRESSION STOCKINGS, 30-40 MM, WITH ZIPPERS PLEASE. IF UNABLE, PLEASE REFER TO CHUNG AT [facility]. DX: EDEMA No current facility-administered medications on file prior to visit. PAST MEDICAL HISTORY No date: Anxiety state, unspecified 10/04/2023: Breast cancer (HCC) Comment: right 05/02/2005: Disorder of bone and cartilage, unspecified No date: Iron deficiency anemias 05/02/2005: Lipoma of other skin and subcutaneous tissue No date: Pain in limb 2011: Pneumonia No date: PURE HYPERCHOLESTEROLEM No date: Pure hypercholesterolemia No date: Urinary tract infection, site not specified Prior radiation therapy, collagen vascular disease, or inflammatory b (more content not included)... [facility] 11-08-2023 History of Present illness Narrative Radiation Oncology - New Patient/Consult Note PATIENT NAME: Alberto Rodriguez PATIENT REQUESTING PROVIDER: Dr. 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 It's ER positive (99%, strong), WY positive (99%, strong), and Her2 2+ and FISH negative. HPI: 88 year old female who presents with above diagnosis, for an opinion regarding the role of radiation therapy in the management of the patient's disease. Final recommendations will be communicated back to the requesting physician by way of the shared medical record, or letter to requesting physician via [place] mail. 88 year old woman who had an abnormal screening mammogram on 07/28/23. There were grouped calcifications in the right breast upper outer posterior depth and grouped calcifications in the right breast central to the nipple in the retroareolar region. There was also possible asymmetry in the left breast middle depth inner region. US of the left breast on 08/22/23 showed a a benign 0.8 cm x 0.6 cm x 0.8 cm oval cyst in the left breast at 6 o'clock posterior depth. Stereotactic core biopsy of the right breast anterior lesion on 10/04/23 showed atypical lobular hyperplasia and Fibrocystic changes, including usual ductal hyperplasia. 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 It's ER positive (99%, strong), WY positive (99%, strong), and Her2 2+ and FISH negative. MRI breasts on 10/21/23 showed 1.3 cm area of abnormal enhancement in the upper inner left breast, indeterminate for malignancy. In the right breast, there was 3.8 cm area of abnormal combined mass and nonmasslike enhancement with mixed washout at site of biopsy-proven malignancy. Additional 2.4 cm area of nonmasslike enhancement in the retroareolar right breast with adjacent biopsy marking clip demonstrating atypical lobular hyperplasia. No lymphadenopathy. US guided core biopsy of the left breast lesion at 11:00, 3cmfn on 11/06/23 showed focal atypical lobular hyperplasia (ALH), columnar cell change, and dense stromal fibrosis. She is scheduled to have MRI guided biopsy of the left breast lesion on 11/20/23. ALLERGIES Allergen Reactions Vicodin [Hydrocodon* Intolerance Current Outpatient Medications on File Prior to Visit Medication Sig nystatin-triamcinolone (MYCOLOG) ointment Apply sparingly to red areas both groins twice daily for irritation/infection. gabapentin (NEURONTIN) 100 mg capsule Take 1 capsule by mouth daily at bedtime for 180 days. nortriptyline (PAMELOR) 50 mg capsule TAKE ONE CAPSULE BY MOUTH EVERY DAY AT BEDTIME pravastatin (PRAVACHOL) 40 mg tablet Take 1 tablet by mouth daily at bedtime. losartan (COZAAR) 25 mg tablet Take 1 tablet by mouth once daily. potassium chloride (K-TAB) 10 mEq tablet Take 1 tablet by mouth daily with breakfast. On days she takes lasix furosemide (LASIX) 20 mg tablet take 1 tablet by mouth every other day amLODIPine (NORVASC) 2.5 mg tablet Take 1 tablet by mouth once daily. multivitamin tablet Take 1 tablet by mouth once daily. Aspirin 81 mg Tab Take 81 mg by mouth once daily. cholecalciferol (VITAMIN D3) 50 mcg (2,000 unit) tablet Take by mouth once daily. CALCIUM 500 MG TAB Take 1500mg daily when she remebers naproxen sodium(ALEVE 220 MG TAB) Take one(1) tablet twice daily.as necessary iv contrast (will be provided with radiology test) MRI LT Breast Bx Inject, intravenously, once for 1 dose. No IV access, insert saline lock prior to the beginning of sedation, infusion, injection of imaging exam. Discontinue saline lock post exam. If Pt has a central line or IVAD, may access for administration according to line specific nursing protocol. Once exam is complete flush line and de-access according to line specific nursing protocol in the MR contrast administration guidelines link >Zippered Compression Knee High 30-40 mm custom CUSTOM MEASURE FOR KNEE HIGH HO COMPRESSION STOCKINGS, 30-40 MM, WITH ZIPPERS PLEASE. IF UNABLE, PLEASE REFER TO CHUNG AT [facility]. DX: EDEMA No current facility-administered medications on file prior to visit. PAST MEDICAL HISTORY No date: Anxiety state, unspecified 10/04/2023: Breast cancer (HCC) Comment: right 05/02/2005: Disorder of bone and cartilage, unspecified No date: Iron deficiency anemias 05/02/2005: Lipoma of other skin and subcutaneous tissue No date: Pain in limb 2010: Pneumonia No date: PURE HYPERCHOLESTEROLEM No date: Pure hypercholesterolemia No date: Urinary tract infection, site not specified Prior radiation therapy, collagen vascular disease, or inflammatory bowel disease: No Any implanted or external electric devices? No status: Post-menopausal. PAST SURGICAL HISTORY 10/04/2023: BX OF BREAST; INCISIONAL; Right Comment: ALH anterior 10/04/2023: BX OF BREAST; INCISIONAL; Right Comment: posterior at least microinvasive carcinoma background of lobular neoplasia 07/18/2003: COLONOSCOPY FLX DX W/COLLJ SPEC WHEN PFRMD Comment: cecal lipoma, otherwise normal 06/27/2017: COLONOSCOPY FLX DX W/COLLJ SPEC WHEN PFRMD Comment: Colonoscopy 07/27/2007: EGD TRANSORAL BIOPSY SINGLE/MULTIPLE Comment: Doyle-gastritis 08/02/2007: LAPS SURG CHOLECYSTECTOMY W/CHOLANGIOGRAPHY 08/02/2007: RPR 1ST INCAL/VNT HERNIA INCARCERATED No date: TOTAL ABDOMINAL HYSTERECT W/WO RMVL TUBE OVARY Comment: Hysterectomy, JAGRUTI FAMILY HISTORY Problem Relation Age of Onset Heart disease Mother Asthma Father Breast Cancer Sister Breast Cancer Sister Leukemia Sister Heart Brother Stroke Brother Diabetes Maternal Grandmother Colon Cancer Paternal Grandmother Social History Tobacco Use Smoking status: Never Smokeless tobacco: Never Vaping Use Vaping Use: Never used Substance Use Topics Alcohol use: Yes Comment: occasionally wine Drug use: No COMPLETE REVIEW OF SYSTEMS: GENERAL: feeling well without fatigue, no recent change in weight HEENT: denies MARTIN, change in hearing or vision, no other ENT complaints NECK: denies swelling or pain in neck RESPIRATORY: no cough, no wheezing or shortness of breath CARDIOVASCULAR: no chest pain, no palpitations GI: normal appetite, tolerating PO well, BMs normal, and no abdominal pain : chronic incontinence. MUSCULOSKELETAL: arthritis of hands. SKIN: no rash HEMATOLOGY/LYMPHOLOGY: negative for prolonged bleeding, no swollen lymph nodes NEURO: no numbness or paresthesias and no weakness of the extremities PHYSICAL EXAM: VS: BP 109/63 Pulse 85 Temp 36.8 C (98.3 F) (Temporal) Ht 153 cm (5' 0.25) Wt 61 kg (134 lb 8 oz) SpO2 94% BMI 26.05 kg/m KPS: 80 General Appearance: Alert and oriented. No acute distress. HEENT: NCAT. Sclera anicteric. EOMI. Neck: Normal ROM. Chest: No respiratory distress. Breasts: There is no dominant mass, suspicious skin change or nipple discharge bilaterally. Abdomen: Soft. Nontender. Nondistended. Musculoskeletal: No edema. Normal ROM in extremities. Neuro: Speech fluent. Gait normal. No focal deficits. Skin: No rashes noted Lymphatics: No palpable cervical or supraclavicular or axillary adenopathy. Hematologic: No signs of active bleeding. 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 It's ER positive (99%, strong), WY positive (99%, strong), and Her2 2+ and FISH negative. I discussed the role of radiation treatment in management of breast cancer. I went over breast conserving therapy vs. mastectomy. I discussed the rationale, benefits and potential complications of radiation treatment in detail. MRI guided biopsy of the left breast MRI lesion is scheduled and then surgical plan will be made. I will see her in late November to go over surgical pathology and recommendation on radiation treatment. Signed by: Jillian Delgado MD cc: Ramandeep Alvarez [id number] [place] [address] Loy Walt Musa [id number] [facility] [id number] Laney Ignacio documented in this encounter [facility] 11-08-2023 Nurse Note Radiation Therapy - Nursing Note (Consult) PATIENT NAME: Alberto Rodriguez PATIENT November 08, 2023 [facility] FACILITY/LOCATION: [place] Chief Complaint: Breast cancer Reason for visit: Consult. Referring physician: Internal provider Dr Kwon Subjective Data: No complaints Additional Data Do you want to see a Pest Control Technician? Yes will schedule Are you interested in information about fertility? No Status: Post-menopausal Stress Scale: On a scale of 0 to 10, what number best describes how much distress you have experienced in the past week?(0 being no distress and 10 being extreme distress) 6 Social work notified: Pt denied need to see social work specialist at this time. SIGNED by: Hayley Glynn RN [facility] 11-08-2023 Nurse Note Radiation Therapy - Nursing Note (Consult) PATIENT NAME: Alberto Rodriguez PATIENT November 08, 2023 [facility] FACILITY/LOCATION: [place] Chief Complaint: Breast cancer Reason for visit: Consult. Referring physician: Internal provider Dr Kwon Subjective Data: No complaints Additional Data Do you want to see a Pest Control Technician? Yes will schedule Are you interested in information about fertility? No Status: Post-menopausal Stress Scale: On a scale of 0 to 10, what number best describes how much distress you have experienced in the past week?(0 being no distress and 10 being extreme distress) 6 Social work notified: Pt denied need to see social work specialist at this time. SIGNED by: Hayley Glynn RN documented in this encounter [facility] 11-08-2023 Note HNO ID: [id number] Author: SANNA CARRANZA MA Service: ? Author Type: [place] Opener Type: Progress Notes Filed: 11/08/2023 12:36 Note Text: POPULATION HEALTH NAVIGATION OUTREACH Action/FYI Patient is on [facility] CURRENT [facility] Workbench list for below and needs appointment to address: Covid-19 Vaccine() Hemoglobin A1C (%) Date Value 07/11/2023 5.8 Patient due for: Medicare Annual Wellness Visit Patient already scheduled for AWV. Updated notes for AWV to please address due care gaps and HCC gap closure. Reason for Outreach Care Gap/HCC or Scheduling Wellness Visits Care Gaps due: Medicare Annual Wellness Visit Patient Contacted: Unable or unnecessary to reach patient: Patient already scheduled Updated appointment notes Navigation Signature: Sanna Carranza MA November 08, 2023 12:35 PM [facility] 11-08-2023 History of Present illness Narrative POPULATION HEALTH NAVIGATION OUTREACH Action/FYI Patient is [facility] for below and needs appointment to address: Covid-19 Vaccine() Hemoglobin A1C (%) Date Value 07/11/2023 5.8 Patient due for: Medicare Annual Wellness Visit Patient already scheduled for AWV. Updated notes for AWV to please address due care gaps and HCC gap closure. Reason for Outreach Care Gap/HCC or Scheduling Wellness Visits Care Gaps due: Medicare Annual Wellness Visit Patient Contacted: Unable or unnecessary to reach patient: Patient already scheduled Updated appointment notes Navigation Signature: Sanna Carranza MA November 08, 2023 12:35 PM documented in this encounter [facility] 11-08-2023 Telephone encounter Note she is becomingly more anxious - she is having trouble sleeping now. states her anxiety level was originally at a 3 and is now at a 10 reviewed rationale for MRI guided biopsy on the left (beyond the CNB she just had)- she will do it. She asks if she can move that appointment up- will see possibility of that questions answered Loy Kwon MD 8:36 AM [facility] Work Phone: 11-08-2023 Miscellaneous Notes she is becomingly more anxious - she is having trouble sleeping now. states her anxiety level was originally at a 3 and is now at a 10 reviewed rationale for MRI guided biopsy on the left (beyond the CNB she just had)- she will do it. She asks if she can move that appointment up- will see possibility of that questions answered Loy Kwon MD 8:36 AM documented in this encounter [facility] 11-08-2023 Note Patient Outreach (NE TNAV) ALBERTO RODRIGUEZ ([id number]) 1935 F Date Time Provider Department 11/08/23 SANNA CARRANZA During your visit today, we recorded the following information about you: Sanna Carranza MA 11/08/2023 12:36 PM Signed POPULATION HEALTH NAVIGATION OUTREACH Action/FYI Patient is on [facility] CURRENT [facility] Workbench list for below and needs appointment to address: Covid-19 Vaccine( season) Hemoglobin A1C (%) Date Value 07/11/2023 5.8 Patient due for: Medicare Annual Wellness Visit Patient already scheduled for AWV. Updated notes for AWV to please address due care gaps and HCC gap closure. Reason for Outreach Care Gap/HCC or Scheduling Wellness Visits Care Gaps due: Medicare Annual Wellness Visit Patient Contacted: Unable or unnecessary to reach patient: Patient already scheduled Updated appointment notes Navigation Signature: Sanna Carranza MA November 08, 2023 12:35 PM Allergies As of Date: 11/08/2023 Noted Allergy Reaction VICODIN (HYDROCODONE-ACETAMINOPHE*04/27/19 10 5 - Intolerance Date Reviewed: 11/06/2023 Reviewed by: Nuris Brunson RT(R) - Fully Assessed Reason for Visit: Population Health Navigation Outreach [3910] Cmt: Tsering Lewis PCSA Prescriptions as of 11/08/2023 - iv contrast (will be provided with radiology test) MRI LT Breast Bx Inject, intravenously, once for 1 dose. No IV access, insert saline lock prior to the beginning of sedation, infusion, injection of imaging exam. Discontinue saline lock post exam. If Pt has a central line or IVAD, may access for administration according to line specific nursing protocol. Once exam is complete flush line and de-access according to line specific nursing protocol in the MR contrast administration guidelines link - nystatin-triamcinolone (MYCOLOG) ointment Apply sparingly to red areas both groins twice daily for irritation/infection. - gabapentin (NEURONTIN) 100 mg capsule Take 1 capsule by mouth daily at bedtime for 180 days. - nortriptyline (PAMELOR) 50 mg capsule TAKE ONE CAPSULE BY MOUTH EVERY DAY AT BEDTIME - pravastatin (PRAVACHOL) 40 mg tablet Take 1 tablet by mouth daily at bedtime. - losartan (COZAAR) 25 mg tablet Take 1 tablet by mouth once daily. - potassium chloride (K-TAB) 10 mEq tablet Take 1 tablet by mouth daily with breakfast. On days she takes lasix - furosemide (LASIX) 20 mg tablet take 1 tablet by mouth every other day - amLODIPine (NORVASC) 2.5 mg tablet Take 1 tablet by mouth once daily. - >Zippered Compression Knee High 30-40 mm custom CUSTOM MEASURE FOR KNEE HIGH HO COMPRESSION STOCKINGS, 30-40 MM, WITH ZIPPERS PLEASE. IF UNABLE, PLEASE REFER TO CHUNG AT [facility]. DX: EDEMA - multivitamin tablet Take 1 tablet by mouth once daily. - Aspirin 81 mg Tab Take 81 mg by mouth once daily. - cholecalciferol (VITAMIN D3) 50 mcg (2,000 unit) tablet Take by mouth once daily. 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] 05/02/2005 ESOPHAGEAL REFLUX [K21.9] 05/02/2005 PAIN ABDOMEN( Right Upper Quadrant) [R10.11] 07/16/2007 GASTRITIS ANTRAL( W/O Hemorrhage) [K29.60] 07/27/2007 ACUTE GASTRITIS W/O HEMORRHAGE [K29.00] 07/27/2007 CHOLECYSTITIS SEE ALSO GALLBLADDER CHRONIC [K*08/13/2007 Dysuria [R30.0] 08/16/2007 06/27/2014 MULTINODULAR GOITER (NONTOXIC) [E04.2] 10/30/2008 Hot flash, menopausal [N95.1] 06/21/2011 06/27/2014 PHN (postherpetic neuralgia) [B02.29] 02/06/2012 Postherpetic neuralgia [B02.29] 06/14/2012 06/27/2014 Pinched nerve in neck [G58.9] 01/31/2018 Hot flashes [R23.2] 09/21/2018 Essential hypertension [I10] 04/14/2022 Pain of left hip joint [M25.552] 07/19/2022 Encounter Status:Closed by SANNA CARRANZA on 11/08/23 [facility] 11-06-2023 History of Present illness Narrative Radiology Service Progress Note PATIENT NAME: Alberto Rodriguez DATE OF SERVICE: November 06, 2023 TIME: 11:59 AM PATIENT IDENTITY VERIFICATION COMPLETED USING TWO (2) IDENTIFIERS: Name and Date of confirmed by patient verbally and Name and Date of confirmed by identification band. FALL SCREENING: Has the patient had 2 falls in the last year or 1 fall with injury or currently using an Ambulatory Assistive Device (Walker, Cane, Wheelchair, Crutches, etc.)? No PATIENT GENDER DATA: Female. status: : No status: NO. PATIENT RELEVANT IMPLANT DATA REVIEWED: Yes PATIENT PRESENTS WITH AN IMPLANTABLE OR ATTACHED INTELLIGENCE OPERATIONS SPECIALIST: No RADIOLOGY DEPARTMENT: MR; Exam(s) Completed: Chest: Breast PERIPHERAL IV DATA: Not applicable SIGNED BY: JASON Delaney November 06, 2023 11:59 AM documented in this encounter [facility] 11-06-2023 Note HNO ID: [id number] Author: ANTONIO LLAMAS MRI Tech Service: ? Author Type: Technologist Type: Progress Notes Filed: 11/06/2023 11:59 Note Text: Radiology Service Progress Note PATIENT NAME: Alberto Rodriguez DATE OF SERVICE: November 06, 2023 TIME: 11:59 AM PATIENT IDENTITY VERIFICATION COMPLETED USING TWO (2) IDENTIFIERS: Name and Date of confirmed by patient verbally and Name and Date of confirmed by identification band. FALL SCREENING: Has the patient had 2 falls in the last year or 1 fall with injury or currently using an Ambulatory Assistive Device (Walker, Cane, Wheelchair, Crutches, etc.)? No PATIENT GENDER DATA: Female. status: : No status: NO. PATIENT RELEVANT IMPLANT DATA REVIEWED: Yes PATIENT PRESENTS WITH AN IMPLANTABLE OR ATTACHED INTELLIGENCE OPERATIONS SPECIALIST: No RADIOLOGY DEPARTMENT: MR; Exam(s) Completed: Chest: Breast PERIPHERAL IV DATA: Not applicable SIGNED BY: JASON Delaney November 06, 2023 11:59 AM [facility] 11-06-2023 Instructions Formatting of th is note might be different from the original. Patient given post procedure instructions [facility] 11-06-2023 Note HNO ID: [id number] Author: NURIS BRUNSON RT(R) Service: ? Author Type: Customs Opener Verifier Packer Type: Patient Education Filed: 11/06/2023 08:59 Note Text: Patient given post procedure instructions [facility] 11-06-2023 Miscellaneous Notes Patient given post procedure instructions documented in this encounter [facility] 11-02-2023 Telephone encounter Note Attempted to return patient's call Left [facility] requesting sooner apt for US core biopsy Left message in return for patient Can move biopsy to Sunday 11/05 at 8:30 in Requested callback for confirmation Kimberly Chavez PA-C November 02, 2023 3:02 PM [facility] Work Phone: 11-02-2023 Miscellaneous Notes Attempted to return patient's call Left [facility] requesting sooner apt for US core biopsy Left message in return for patient Can move biopsy to Sunday 11/05 at 8:30 in Requested callback for confirmation Kimberly Chavez PA-C November 02, 2023 3:02 PM documented in this encounter [facility] 10-27-2023 History of Present illness Narrative Radiology Service Progress Note PATIENT NAME: Alberto Rodriguez DATE OF SERVICE: October 27, 2023 TIME: 2:16 PM PATIENT IDENTITY VERIFICATION COMPLETED USING TWO (2) IDENTIFIERS: Name and Date of confirmed by patient verbally. FALL SCREENING: Has the patient had 2 falls in the last year or 1 fall with injury or currently using an Ambulatory Assistive Device (Walker, Cane, Wheelchair, Crutches, etc.)? No PATIENT GENDER DATA: Female. status: : No status: NO. PATIENT RELEVANT IMPLANT DATA REVIEWED: Yes PATIENT PRESENTS WITH AN IMPLANTABLE OR ATTACHED INTELLIGENCE OPERATIONS SPECIALIST: No RADIOLOGY DEPARTMENT: Mammography PERIPHERAL IV DATA: Not applicable SIGNED BY: RT Macie(Lianna) October 27, 2023 2:16 PM documented in this encounter [facility] 10-27-2023 Note HNO ID: [id number] Author: RADHA BALDWIN RT(R) Service: ? Author Type: Technologist Type: Progress Notes Filed: 10/27/2023 14:16 Note Text: Radiology Service Progress Note PATIENT NAME: Alberto Rodriguez DATE OF SERVICE: October 27, 2023 TIME: 2:16 PM PATIENT IDENTITY VERIFICATION COMPLETED USING TWO (2) IDENTIFIERS: Name and Date of confirmed by patient verbally. FALL SCREENING: Has the patient had 2 falls in the last year or 1 fall with injury or currently using an Ambulatory Assistive Device (Walker, Cane, Wheelchair, Crutches, etc.)? No PATIENT GENDER DATA: Female. status: : No status: NO. PATIENT RELEVANT IMPLANT DATA REVIEWED: Yes PATIENT PRESENTS WITH AN IMPLANTABLE OR ATTACHED INTELLIGENCE OPERATIONS SPECIALIST: No RADIOLOGY DEPARTMENT: Mammography PERIPHERAL IV DATA: Not applicable SIGNED BY: ELIDA Quijano) October 27, 2023 2:16 PM [facility] 10-26-2023 Telephone encounter Note reached patient reviewed MRI results she understands need for a workup on the LEFT (contralateral) side will touch base after the left side is further clarified questions answered Loy Kwon MD 11:22 AM [facility] Work Phone: 10-26-2023 Miscellaneous Notes reached patient reviewed MRI results she understands need for a workup on the LEFT (contralateral) side will touch base after the left side is further clarified questions answered Loy Kwon MD 11:22 AM documented in this encounter [facility] 10-25-2023 Telephone encounter Note Patient called again about a call back to discuss the results of her previous test and also to speak with you before her ultrasound scheduled for October 26. Patient can be reached at [phone]. Thanks [facility] 10-25-2023 Miscellaneous Notes Patient called again about a call back to discuss the results of her previous test and also to speak with you before her ultrasound scheduled for October 26. Patient can be reached at [phone]. Thanks Patient requesting a call back regarding her results she stated she was contacted yesterday to have an ultrasound on Monday but she wanted to know if clinical team or Musa Frost had a chance to see her results pt can be reached at [phone]. documented in this encounter [facility] 10-24-2023 Telephone encounter Note Patient requesting a call back regarding her results she stated she was contacted yesterday to have an ultrasound on Monday but she wanted to know if clinical team or Musa Frost had a chance to see her results pt can be reached at [phone]. [facility] 10-21-2023 History of Present illness Narrative Radiology Service Progress Note DATE OF SERVICE: October 21, 2023 TIME: 10:04 AM PATIENT WEIGHT: 134 LBS PATIENT IDENTITY VERIFICATION COMPLETED USING TWO (2) STANDARD IDENTIFIERS: Name and Date of confirmed by patient verbally and Name and Date of confirmed by identification band. FALL SCREENING: Has the patient had 2 falls in the last year or 1 fall with injury or currently using an Ambulatory Assistive Device (Walker, Cane, Wheelchair, Crutches, etc.)? No PATIENT GENDER DATA: Female. status: : No status: NO. ALLERGIES: Reviewed and unchanged CONTRAST ALLERGY: No EXAM: MRI - CONTRAST TYPE: GROUP II IV SITE: Ambulatory: A peripheral IV was started in the Left with a Angio cath: 20 gauge. IV SITE APPEARANCE: Clean,Dry and Intact 1.25in peripheral started on first attempt. Excellent brisk blood return. Flushed with 10ml. 0.9 Na Chloride. Patient screened negative for MRI incompatibilities. SIGNATURE: Oriana Pires RN PATIENT NAME: Alberto Rodriguez DATE: October 21, 2023 TIME: 10:04 AM Radiology Service Progress Note PATIENT NAME: Alberto Rodriguez DATE OF SERVICE: October 21, 2023 TIME: 10:15 AM PATIENT IDENTITY VERIFICATION COMPLETED USING TWO (2) IDENTIFIERS: Name and Date of confirmed by patient verbally. FALL SCREENING: Has the patient had 2 falls in the last year or 1 fall with injury or currently using an Ambulatory Assistive Device (Walker, Cane, Wheelchair, Crutches, etc.)? No PATIENT GENDER DATA: Female. status: : No status: NO. PATIENT RELEVANT IMPLANT DATA REVIEWED: Yes PATIENT PRESENTS WITH AN IMPLANTABLE OR ATTACHED INTELLIGENCE OPERATIONS SPECIALIST: No RADIOLOGY DEPARTMENT: MR; Exam(s) Completed: Chest: Breast PERIPHERAL IV DATA: Site assessment: Clean,Dry and Intact, Site disposition Discontinued SIGNED BY: RT Lluvia(R) October 21, 2023 10:15 AM documented in this encounter [facility] 10-21-2023 Note HNO ID: [id number] Author: ORIANA PIRES RN Service: Radiology Author Type: Registered Nurse Type: Progress Notes Filed: 10/21/2023 10:10 Note Text: Radiology Service Progress Note DATE OF SERVICE: October 21, 2023 TIME: 10:04 AM PATIENT WEIGHT: 134 LBS PATIENT IDENTITY VERIFICATION COMPLETED USING TWO (2) STANDARD IDENTIFIERS: Name and Date of confirmed by patient verbally and Name and Date of confirmed by identification band. FALL SCREENING: Has the patient had 2 falls in the last year or 1 fall with injury or currently using an Ambulatory Assistive Device (Walker, Cane, Wheelchair, Crutches, etc.)? No PATIENT GENDER DATA: Female. status: : No status: NO. ALLERGIES: Reviewed and unchanged CONTRAST ALLERGY: No EXAM: MRI - CONTRAST TYPE: GROUP II IV SITE: Ambulatory: A peripheral IV was started in the Left with a Angio cath: 20 gauge. IV SITE APPEARANCE: Clean,Dry and Intact 1.25in peripheral started on first attempt. Excellent brisk blood return. Flushed with 10ml. 0.9 Na Chloride. Patient screened negative for MRI incompatibilities. SIGNATURE: Oriana Pires RN PATIENT NAME: Alberto Rodriguez DATE: October 21, 2023 TIME: 10:04 AM [facility] 10-21-2023 Note HNO ID: [id number] Author: BLANCA HUANG RT(R) Service: Radiology Author Type: Customs Opener Verifier Packer Type: Progress Notes Filed: 10/21/2023 10:15 Note Text: Radiology Service Progress Note PATIENT NAME: Alberto Rodriguez DATE OF SERVICE: October 21, 2023 TIME: 10:15 AM PATIENT IDENTITY VERIFICATION COMPLETED USING TWO (2) IDENTIFIERS: Name and Date of confirmed by patient verbally. FALL SCREENING: Has the patient had 2 falls in the last year or 1 fall with injury or currently using an Ambulatory Assistive Device (Walker, Cane, Wheelchair, Crutches, etc.)? No PATIENT GENDER DATA: Female. status: : No status: NO. PATIENT RELEVANT IMPLANT DATA REVIEWED: Yes PATIENT PRESENTS WITH AN IMPLANTABLE OR ATTACHED INTELLIGENCE OPERATIONS SPECIALIST: No RADIOLOGY DEPARTMENT: MR; Exam(s) Completed: Chest: Breast PERIPHERAL IV DATA: Site assessment: Clean,Dry and Intact, Site disposition Discontinued SIGNED BY: RT Lluvia(R) October 21, 2023 10:15 AM [facility] 10-19-2023 History of Present illness Narrative Radiology Service Progress Note PATIENT NAME: Alberto Rodriguez DATE OF SERVICE: October 19, 2023 TIME: 1:17 PM PATIENT IDENTITY VERIFICATION COMPLETED USING TWO (2) IDENTIFIERS: Name and Date of confirmed by patient verbally. FALL SCREENING: Has the patient had 2 falls in the last year or 1 fall with injury or currently using an Ambulatory Assistive Device (Walker, Cane, Wheelchair, Crutches, etc.)? No PATIENT GENDER DATA: Female. status: : No status: NO. PATIENT RELEVANT IMPLANT DATA REVIEWED: Yes PATIENT PRESENTS WITH AN IMPLANTABLE OR ATTACHED INTELLIGENCE OPERATIONS SPECIALIST: No RADIOLOGY DEPARTMENT: Mammography PERIPHERAL IV DATA: Not applicable SIGNED BY: RT Macie(Lianna) October 19, 2023 1:17 PM documented in this encounter [facility] 10-19-2023 Note HNO ID: [id number] Author: RADHA BALDWIN RT (R) Service: ? Author Type: Technologist Type: Progress Notes Filed: 10/19/2023 13:17 Note Text: Radiology Service Progress Note PATIENT NAME: Alberto Rodriguez DATE OF SERVICE: October 19, 2023 TIME: 1:17 PM PATIENT IDENTITY VERIFICATION COMPLETED USING TWO (2) IDENTIFIERS: Name and Date of confirmed by patient verbally. FALL SCREENING: Has the patient had 2 falls in the last year or 1 fall with injury or currently using an Ambulatory Assistive Device (Walker, Cane, Wheelchair, Crutches, etc.)? No PATIENT GENDER DATA: Female. status: : No status: NO. PATIENT RELEVANT IMPLANT DATA REVIEWED: Yes PATIENT PRESENTS WITH AN IMPLANTABLE OR ATTACHED INTELLIGENCE OPERATIONS SPECIALIST: No RADIOLOGY DEPARTMENT: Mammography PERIPHERAL IV DATA: Not applicable SIGNED BY: RT Macie(Lianna) October 19, 2023 1:17 PM [facility] 10-19-2023 Nurse Note Patient was referred by: Angélica Pulido Did patient bring outside records to appt today? : No Last mammogram on: 07/27/2023 Results: abnormal Patient current bra size: 34B Coping: It is normal to feel some distress when you have cancer. On a scale of 0-10 please indicate the number that best describes your level of distress on the average over the past week. 06/03 Referred to social work: No denies need at this time Is the patient active on [id number] No: patient declines Electronically Signed By: Nuris Raji, RN In Department: BREAST CENTER REVIEW OF PATIENT HISTORY: OB History T0 L0 SAB0 IAB0 Ectopic0 Multiple0 Live Births0 Comment: Menarche 15 BCp 5 yrs Took HRT after hysterectomy then Estradiol past 4-5 yrs Hysterectomy 57 for bleeding 34B FAMILY HISTORY Problem Relation Age of Onset Heart disease Mother Asthma Father Breast Cancer Sister Breast Cancer Sister 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 COLONOSCOPY FLX DX W/COLLJ SPEC WHEN PFRMD 07/18/2003 cecal lipoma, otherwise normal COLONOSCOPY FLX DX W/COLLJ SPEC WHEN PFRMD 06/27/2017 Colonoscopy EGD TRANSORAL BIOPSY SINGLE/MULTIPLE 07/27/2007 Doyle-gastritis LAPS SURG CHOLECYSTECTOMY W/CHOLANGIOGRAPHY 08/02/2007 RPR 1ST INCAL/VNT HERNIA INCARCERATED 08/02/2007 TOTAL ABDOMINAL HYSTERECT W/WO RMVL TUBE OVARY Hysterectomy, JAGRUTI Social History Tobacco Use Smoking status: Never Smokeless tobacco: Never Vaping Use Vaping Use: Never used Substance Use Topics Alcohol use: Yes Comment: occasionally Drug use: No [facility] 10-19-2023 History of Present illness Narrative NEW BREAST CANCER - INITIAL SURGICAL VISIT REFERRING PROVIDER: Ramandeep Alvarez MD SUBJECTIVE: REASON FOR TODAY'S VISIT: Breast Cancer Evaluation HISTORY of PRESENT ILLNESS: Alberto Rodriguez is a 87 year old female who presents for an evaluation of a new diagnosis of breast cancer. 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 ER 99 [place] 99 Her2 FISH negative SA: TOP HAT [facility] 10/21/23: MRI scheduled HISTORY OF BREAST PROCEDURE(S): ~22 years ago right excisional biopsy- for a MG abnormality- all was benign. 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 PAST MEDICAL HISTORY: PAST MEDICAL HISTORY Diagnosis Date Anxiety state, unspecified Disorder of bone and cartilage, unspecified 05/02/2005 Iron deficiency anemias Lipoma of other skin and subcutaneous tissue 05/02/2005 Pain in limb Pneumonia 2010 PURE HYPERCHOLESTEROLEM Pure hypercholesterolemia Urinary tract infection, site not specified PAST SURGICAL HISTORY: PAST SURGICAL HISTORY Procedure Laterality Date COLONOSCOPY FLX DX W/COLLJ SPEC WHEN PFRMD 07/18/03 cecal lipoma, otherwise normal COLONOSCOPY FLX DX W/COLLJ SPEC WHEN PFRMD 06/27/2017 Colonoscopy EGD TRANSORAL BIOPSY SINGLE/MULTIPLE 07/27/07 Doyle-gastritis LAPS SURG CHOLECYSTECTOMY W/CHOLANGIOGRAPHY 08-02-07 RPR 1ST INCAL/VNT HERNIA INCARCERATED 08-02-07 TOTAL ABDOMINAL HYSTERECT W/WO RMVL TUBE OVARY Hysterectomy, JAGRUTI OBSTETRIC RELATED HISTORY: OB History T0 L0 SAB0 IAB0 Ectopic0 Multiple0 Live Births0 menopause early 50's hysterectomy- fibroids later had B/L oophorectomy- she said it was for pain took HRT for the last 35 years; recently ~ 6-12 months ago her PCP recommended she stop. FAMILY HISTORY: FAMILY HISTORY Problem Relation Age of Onset Heart disease Mother Asthma Father SOCIAL HISTORY: Social History Tobacco Use Smoking status: Never Smokeless tobacco: Never Vaping Use Vaping Use: Never used Substance Use Topics Alcohol use: Yes Comment: occasionally Drug use: No CURRENT MEDICATIONS: nystatin-triamcinolone (MYCOLOG) ointment Apply sparingly to red areas both groins twice daily for irritation/infection. gabapentin (NEURONTIN) 100 mg capsule Take 1 capsule by mouth daily at bedtime for 180 days. estradiol (ESTRACE) 1 mg tablet Take 1 tablet by mouth once daily. Begin with half a pill, if symptoms dont get better take 1 pill nortriptyline (PAMELOR) 50 mg capsule TAKE ONE CAPSULE BY MOUTH EVERY DAY AT BEDTIME pravastatin (PRAVACHOL) 40 mg tablet Take 1 tablet by mouth daily at bedtime. losartan (COZAAR) 25 mg tablet Take 1 tablet by mouth once daily. potassium chloride (K-TAB) 10 mEq tablet Take 1 tablet by mouth daily with breakfast. On days she takes lasix furosemide (LASIX) 20 mg tablet take 1 tablet by mouth every other day amLODIPine (NORVASC) 2.5 mg tablet Take 1 tablet by mouth once daily. JUBLIA 10 % gunjan >Zippered Compression Knee High 30-40 mm custom CUSTOM MEASURE FOR KNEE HIGH HO COMPRESSION STOCKINGS, 30-40 MM, WITH ZIPPERS PLEASE. IF UNABLE, PLEASE REFER TO [facility]G AT [facility]. DX: EDEMA multivitamin tablet Take 1 tablet by mouth once daily. Aspirin 81 mg Tab Take 81 mg by mouth once daily. cholecalciferol (VITAMIN D3) 50 mcg (2,000 unit) tablet Take by mouth once daily. CALCIUM 500 MG TAB Take 1500mg daily when she remebers naproxen sodium(ALEVE 220 MG TAB) Take one(1) tablet twice daily.as necessary ALLERGIES Allergen Reactions Vicodin [Hydrocodon* Intolerance REVIEW OF SYSTEMS: GENERAL: No weight loss, malaise or fevers HEENT: Negative for frequent or significant headaches, No changes in hearing or vision, no nose bleeds or other nasal problems RESPIRATORY: Negative for cough, hemoptysis, wheezing, COPD, dyspnea or shortness of breath CARDIOVASCULAR: Negative for chest pain, leg swelling, hypertension, CHF or palpitations GASTROINTESTINAL: No nausea, vomiting, or diarrhea GENITOURINARY: No history of dysuria, frequency or incontinence GYNECOLOGICAL: Negative for abnormal vaginal bleeding, abnormal vaginal discharge MUSCULOSKELETAL: Negative for joint pain or swelling, back pain or muscle pain INTEGUMENTARY:Denies Scleroderma or Lupus. Denies chronic skin conditions. PSYCHOLOGICAL: Denies history of psychiatric illness. Patient feels she is coping well with recent Breast Cancer diagnosis. Negative for sleep disturbance, mood disorder and recent psychosocial stressors. All other reviewed and negative other than HPI. OBJECTIVE: PHYSICAL EXAM: GENERAL:healthy, thin, alert and oriented x 3, calm SKIN:warm, dry, skin color, texture, turgor normal HEAD/EYES:normocephalic, atraumatic, and anicteric NECK: supple, symmetrical, no thyromegaly RESPIRATORY: Respirations regular & non-labored ABDOMEN: soft, nondistended. No hepatomegaly., No masses MUSCULOSKELETAL: No observed limitations in range of motion of upper extremities. Patient ambulates independently BREASTS: LEFT BREAST: The breast skin and nipple areolar complexes appear normal without retraction or lesions. There is no nipple discharge. There is no dominant mass or clinical abnormality noted in left breast. RIGHT BREAST: biopsy changes as evidenced by superficial soft ecchymosis in the lateral aspect of the breast; needle sites are healing fine LEFT REGIONAL LYMPH NODES: There is no concerning supraclavicular, infraclavicular or axillary lymphadenopathy RIGHT REGIONAL LYMPH NODES: There is no concerning supraclavicular, infraclavicular or axillary lymphadenopathy IMAGING TO DATE: reviewed see HPI for path report GENETIC TESTING: Not indicated ASSESSMENT./PLAN: HTN: norvasc/ lily HLD: pravastatin takes Neurontin for sleep stopped Estrace ~ year ago based on PCP recommendation now new diagnosis of RIGHT breast cancer presenting as suspicious extent of calcifications on July 2023 screen diagnosis eventually made by 2 site stereo biopsy in September cTmic N0 ER/W[place] 99 Her2 FISH negative the anterior(RA) biopsy: AL I have examined Ms. Rodriguez and reviewed the physical findings, imaging and pathology reports with her. A discussion was held with the patient and her friend regarding the local-regional, as well as systemic treatment of her Breast Cancer. We discussed role of breast conservation surgery or mastectomy, indications and risks of sentinel lymph node biopsy- she may be a candidate for choosing wisely- check axillary US- to ensure / confirm clinically node negative. Discussed role of systemic endocrine and radiation therapy Ms. Rodriguez would prefer BCT if she was a candidate. MRI will help delineate extent of disease consider candidacy for choosing wisely IMAGING ORDERED TODAY: right axillary US breast MRI- assess disease extent REFERRAL(S) for breast cancer treatment planning considerations: MDAs- seeing Omari Aviles. All questions were answered and the patient had no further concerns at this time Ms. Rodriguez was given our contact information if she has any further questions or concerns. We will call her with MRI when it is reported. I spent a total of 60 minutes on the date of the service which included preparing to see the patient, [id number] patient care, completing clinical documentation, obtaining and/or reviewing separately obtained history, performing a medically appropriate examination, counseling and educating the patient/family/caregiver, ordering medications, tests, or procedures, communicating with other HCPs (not separately reported), independently interpreting results (not separately reported), communicating results to the patient/family/caregiver, and care coordination (not separately reported). SIGNATURE: Loy Kwon MD PATIENT NAME: Alberto Rodriguez CC: Ramandeep Alvarez MD documented in this encounter [facility] 10-19-2023 Note HNO ID: [id number] Author: LOY KWON MD Service: ? Author Type: Physician Type: Progress Notes Filed: 10/19/2023 13:11 Note Text: NEW BREAST CANCER - INITIAL SURGICAL VISIT REFERRING PROVIDER: Ramandeep Alvarez MD SUBJECTIVE: REASON FOR TODAY'S VISIT: Breast Cancer Evaluation HISTORY of PRESENT ILLNESS: Alberto Rodriguez is a 87 year old female who presents for an evaluation of a new diagnosis of breast cancer. 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 ER 99 [place] 99 Her2 FISH negative SA: TOP HAT [facility] 10/21/23: MRI scheduled HISTORY OF BREAST PROCEDURE(S): ~22 years ago right excisional biopsy- for a MG abnormality- all was benign. 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 PAST MEDICAL HISTORY: PAST MEDICAL HISTORY Diagnosis Date Anxiety state, unspecified Disorder of bone and cartilage, unspecified 05/02/2005 Iron deficiency anemias Lipoma of other skin and subcutaneous tissue 05/02/2005 Pain in limb Pneumonia 2010 PURE HYPERCHOLESTEROLEM Pure hypercholesterolemia Urinary tract infection, site not specified PAST SURGICAL HISTORY: PAST SURGICAL HISTORY Procedure Laterality Date COLONOSCOPY FLX DX W/COLLJ SPEC WHEN PFRMD 07/18/03 cecal lipoma, otherwise normal COLONOSCOPY FLX DX W/COLLJ SPEC WHEN PFRMD 06/27/2017 Colonoscopy EGD TRANSORAL BIOPSY SINGLE/MULTIPLE 07/27/07 Doyle-gastritis LAPS SURG CHOLECYSTECTOMY W/CHOLANGIOGRAPHY 08-02-07 RPR 1ST INCAL/VNT HERNIA INCARCERATED 08-02-07 TOTAL ABDOMINAL HYSTERECT W/WO RMVL TUBE OVARY Hysterectomy, JAGRUTI OBSTETRIC RELATED HISTORY: OB History T0 L0 SAB0 IAB0 Ectopic0 Multiple0 Live Births0 menopause early 50's hysterectomy- fibroids later had B/L oophorectomy- she said it was for pain took HRT for the last 35 years; recently ~ 6-12 months ago her PCP recommended she stop. FAMILY HISTORY: FAMILY HISTORY Problem Relation Age of Onset Heart disease Mother Asthma Father SOCIAL HISTORY: Social History Tobacco Use Smoking status: Never Smokeless tobacco: Never Vaping Use Vaping Use: Never used Substance Use Topics Alcohol use: Yes Comment: occasionally Drug use: No CURRENT MEDICATIONS: nystatin-triamcinolone (MYCOLOG) ointment Apply sparingly to red areas both groins twice daily for irritation/infection. gabapentin (NEURONTIN) 100 mg capsule Take 1 capsule by mouth daily at bedtime for 180 days. estradiol (ESTRACE) 1 mg tablet Take 1 tablet by mouth once daily. Begin with half a pill, if symptoms dont get better take 1 pill nortriptyline (PAMELOR) 50 mg capsule TAKE ONE CAPSULE BY MOUTH EVERY DAY AT BEDTIME pravastatin (PRAVACHOL) 40 mg tablet Take 1 tablet by mouth daily at bedtime. losartan (COZAAR) 25 mg tablet Take 1 tablet by mouth once daily. potassium chloride (K-TAB) 10 mEq tablet Take 1 tablet by mouth daily with breakfast. On days she takes lasix furosemide (LASIX) 20 mg tablet take 1 tablet by mouth every other day amLODIPine (NORVASC) 2.5 mg tablet Take 1 tablet by mouth once daily. JUBLIA 10 % gunjan >Zippered Compression Knee High 30-40 mm custom CUSTOM MEASURE FOR KNEE HIGH HO COMPRESSION STOCKINGS, 30-40 MM, WITH ZIPPERS PLEASE. IF UNABLE, PLEASE REFER TO [facility]G AT [facility]. DX: EDEMA multivitamin tablet Take 1 tablet by mouth once daily. Aspirin 81 mg Tab Take 81 mg by mouth once daily. cholecalciferol (VITAMIN D3) 50 mcg (2,000 unit) tablet Take by mouth once daily. CALCIUM 500 MG TAB Take 1500mg daily when she remebers naproxen sodium(ALEVE 220 MG TAB) Take one(1) tablet twice daily.as necessary ALLERGIES Allergen Reactions Vicodin [Hydrocodon* Intolerance REVIEW OF SYSTEMS: GENERAL: No weight loss, malaise or fevers HEENT: Negative for frequent or significant headaches, No changes in hearing or vision, no nose bleeds or other nasal problems RESPIRATORY: Negative for cough, hemoptysis, wheezing, COPD, dyspnea or shortness of breath CARDIOVASCULAR: Negative for chest pain, leg swelling, hypertension, CHF or palpitations GASTROINTESTINAL: No nausea, vomiting, or diarrhea GENITOURINARY: No history of dysuria, frequency or incontinence GYNECOLOGICAL: Negative for abnormal vaginal bleeding, abnormal vaginal discharge MUSCULOSKELETAL: Negative for joint pain or swelling, back pain or muscle pain INTEGUMENTARY:Denies Scleroderma or Lupus. Denies chronic skin conditions. PSYCHOLOGICAL: Denies history of psychiatric illness. Patient feels she is coping well with recent Breast C (more content not included)... [facility] 10-19-2023 Nurse Note Patient was referred by: Angélica Pulido Did patient bring outside records to appt today? : No Last mammogram on: 07/27/2023 Results: abnormal Patient current bra size: 34B Coping: It is normal to feel some distress when you have cancer. On a scale of 0-10 please indicate the number that best describes your level of distress on the average over the past week. 06/03 Referred to social work: No denies need at this time Is the patient active on [facility] No: patient declines Electronically Signed By: Nuris Alegria RN In Department: BREAST C[facility] REVIEW OF PATIENT HISTORY: OB History T0 L0 SAB0 IAB0 Ectopic0 Multiple0 Live Births0 Comment: Menarche 15 BCp 5 yrs Took HRT after hysterectomy then Estradiol past 4-5 yrs Hysterectomy 57 for bleeding 34B FAMILY HISTORY Problem Relation Age of Onset Heart disease Mother Asthma Father Breast Cancer Sister Breast Cancer Sister 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 COLONOSCOPY FLX DX W/COLLJ SPEC WHEN PFRMD 07/18/2003 cecal lipoma, otherwise normal COLONOSCOPY FLX DX W/COLLJ SPEC WHEN PFRMD 06/27/2017 Colonoscopy EGD TRANSORAL BIOPSY SINGLE/MULTIPLE 07/27/2007 Doyle-gastritis LAPS SURG CHOLECYSTECTOMY W/CHOLANGIOGRAPHY 08/02/2007 RPR 1ST INCAL/VNT HERNIA INCARCERATED 08/02/2007 TOTAL ABDOMINAL HYSTERECT W/WO RMVL TUBE OVARY Hysterectomy, JAGRUTI Social History Tobacco Use Smoking status: Never Smokeless tobacco: Never Vaping Use Vaping Use: Never used Substance Use Topics Alcohol use: Yes Comment: occasionally Drug use: No documented in this encounter [facility] 10-12-2023 Note Addended by: NURIS AZEVEDO OM on: 10/12/2023 02:58 PM Modules accepted: Orders [facility] 10-12-2023 Miscellaneous Notes Addended by: NURIS ALEGRIA on: 10/12/2023 02:58 PM Modules accepted: Orders Reached out to Alberto regarding upcoming appt with Dr Kwon. Alberto lives by her self. She denies any breast issues or concern prior to her mammogram. She was called back for additional imaging and biopsy. Pathology results Right breast, anterior, calcifications, stereotactic-guided core biopsy, with tophat clip placement (A): - Atypical lobular hyperplasia (ALH). - Fibrocystic changes, including usual ductal hyperplasia (UDH), dense stromal fibrosis, cysts, and apocrine metaplasia, and pseudoangiomatous stromal hyperplasia (PASH). - Microcalcifications in non-neoplastic breast epithelium. - Please see Comment I. 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 - Microcalcifications in lobular neoplasia and non-neoplastic breast epithelium. Component ER status Positive (greater than 10%) ER % staining 99 Estrogen Receptor (Staining Intensity) Strong Estrogen Receptor Internal Control Present and Stained as Expected Estrogen Receptor External Control Present and Stained as Expected WY status Positive (greater than or equal to 1%) W[place] % staining 99 Progesterone Receptor (Staining Intensity) Strong Progesterone Receptor Internal Control Present and Stained as Expected Progesterone Receptor External Control Present and Stained as Expected HER2 IHC Status Equivocal for HER2 Overexpression HER2 IHC Score 2+ Tumor Type Primary Invasive Breast Carcinoma Breast Tumor Grade Not Graded Comment: Microinvasive carcinoma [facility] Referring Laboratory Case Number Block ID [id number] Fish is pending Family HX Sister Breast cancer Sister Breast cancer PGM Stomach cancer Discussed med/onc and rad/onc, MRI. Scheduled MRI 1st available for October 20 Reviewed and updated allergies, medications, surgical, medical, family, and OB history. Contact information provided, encouraged to call with any questions or concerns. Addended by: NURIS ALEGRIA on: 10/12/2023 11:35 AM Modules accepted: Orders Attempt to reach Alberto regarding upcoming appt with Dr Kwon- memory is full unable to leave message. Pt does not have my chart access to send my chart message documented in this encounter [facility] 10-12-2023 Telephone encounter Note Reached out to Alberto regarding upcoming appt with Dr Kwon. Alberto lives by her self. She denies any breast issues or concern prior to her mammogram. She was called back for additional imaging and biopsy. Pathology results Right breast, anterior, calcifications, stereotactic-guided core biopsy, with tophat clip placement (A): - Atypical lobular hyperplasia (ALH). - Fibrocystic changes, including usual ductal hyperplasia (UDH), dense stromal fibrosis, cysts, and apocrine metaplasia, and pseudoangiomatous stromal hyperplasia (PASH). - Microcalcifications in non-neoplastic breast epithelium. - Please see Comment I. 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 - Microcalcifications in lobular neoplasia and non-neoplastic breast epithelium. Component ER status Positive (greater than 10%) ER % staining 99 Estrogen Receptor (Staining Intensity) Strong Estrogen Receptor Internal Control Present and Stained as Expected Estrogen Receptor External Control Present and Stained as Expected W[place] status Positive (greater than or equal to 1%) WY % staining 99 Progesterone Receptor (Staining Intensity) Strong Progesterone Receptor Internal Control Present and Stained as Expected Progesterone Receptor External Control Present and Stained as Expected HER2 IHC Status Equivocal for HER2 Overexpression HER2 IHC Score 2+ Tumor Type Primary Invasive Breast Carcinoma Breast Tumor Grade Not Graded Comment: Microinvasive carcinoma [facility] Referring Laboratory Case Number Block ID [id number] Fish is pending Family HX Sister Breast cancer Sister Breast cancer PGM Stomach cancer Discussed med/onc and rad/onc, MRI. Scheduled MRI 1st available for October 20 Reviewed and updated allergies, medications, surgical, medical, family, and OB history. Contact information provided, encouraged to call with any questions or concerns. [facility] 10-12-2023 Note Addended by: NURIS AZEVEDO OM on: 10/12/2023 11:35 AM Modules accepted: Orders T [facility] 10-12-2023 Telephone encounter Note Attempt to reach Alberto regarding upcoming appt with Dr Kwon- memory is full unable to leave message. Pt does not have my chart access to send my chart message [facility] 10-04-2023 Instructions Formatting of th is note might be different from the original. Pt given written post procedure instructions [facility] 10-04-2023 Note HNO ID: [id number] Author: RADHA BALDWIN RT(R) Service: ? Author Type: Technologist Type: Patient Education Filed: 10/04/2023 14:46 Note Text: Pt given written post procedure instructions [facility] 10-04-2023 Miscellaneous Notes Pt given written post procedure instructions documented in this encounter [facility] 09-15-2023 Note HNO ID: [id number] Author: ANGÉLICA PULIDO APRN.FUNCTIONAL ARCHITECT Service: ? Author Type: Nurse Specialist Type: Progress Notes Filed: 09/15/2023 12:55 Note Text: SUBJECTIVE: Covid-19 Vaccine( season) due on 04/20/2023 HPI Alberto Rodriguez is a 87 year old female. PMH significant for ACTIVE PROBLEM LIST Pain in Limb Iron Deficiency Anemia Pure Hypercholesterolemia Anxiety State Disorder of Bone and Cartilage Lipoma of Other Skin and Subcutaneous Tissue Esophageal Reflux PAIN ABDOMEN( Right Upper Quadrant) GASTRITIS ANTRAL( W/O Hemorrhage) Acute Gastritis Without Mention of Hemorrhage CHOLECYSTITIS SEE ALSO GALLBLADDER CHRONIC MULTINODULAR GOITER (NONTOXIC) Phn (Postherpetic Neuralgia) Pinched Nerve in Neck Hot Flashes Essential Hypertension Pain of Left Hip Joint PCP: Ramandeep Alvarez MD Presents for concern regarding hives. Alberto Rodriguez is a 87 year old female who presents with complaint of itchy rash on right hand, anterior aspect and at left side of her neck near her chin. No hives noted, mild erythema only. No warmth induration or drainage. She notes itchy rash bilateral groins. Both present for a few days. Home treatments have not helped much. Not spreading. Afebrile. Review of Systems Constitutional: Negative. Skin: Positive for rash. Objective BP 105/64 Pulse 80 Resp 16 Wt 60.8 kg (134 lb) BMI 25.32 kg/m? Physical Exam Vitals and nursing note reviewed. Constitutional: Appearance: Normal appearance. HENT: Head: Normocephalic and atraumatic. Eyes: Conjunctiva/sclera: Conjunctivae normal. Neck: Thyroid: No thyromegaly. Vascular: Normal carotid pulses. No JVD. Cardiovascular: Rate and Rhythm: Normal rate and regular rhythm. Pulses: Carotid pulses are 2+ on the right side and 2+ on the left side. Radial pulses are 2+ on the right side and 2+ on the left side. Heart sounds: Normal heart sounds. Pulmonary: Effort: Pulmonary effort is normal. Breath sounds: Normal breath sounds. Abdominal: General: Bowel sounds are normal. Palpations: Abdomen is soft. Skin: General: Skin is warm and dry. Comments: Mild erythema to anterior aspect of right hand approximately 1 inch diameter, left side neck about 1/2 diameter with no drainage warmth or induration. Bilateral groin with erythema at groin crease appox 1/2x3 both sidescrease Neurological: General: No focal deficit present. Mental Status: She is alert and oriented to person, place, and time. ALLERGIES Allergen Reactions Vicodin [Hydrocodon* Intolerance Medication gabapentin (NEURONTIN) 100 mg capsule Take 1 capsule by mouth daily at bedtime for 180 days. estradiol (ESTRACE) 1 mg tablet Take 1 tablet by mouth once daily. Begin with half a pill, if symptoms dont get better take 1 pill nortriptyline (PAMELOR) 50 mg capsule TAKE ONE CAPSULE BY MOUTH EVERY DAY AT BEDTIME pravastatin (PRAVACHOL) 40 mg tablet Take 1 tablet by mouth daily at bedtime. losartan (COZAAR) 25 mg tablet Take 1 tablet by mouth once daily. potassium chloride (K-TAB) 10 mEq tablet Take 1 tablet by mouth daily with breakfast. On days she takes lasix furosemide (LASIX) 20 mg tablet take 1 tablet by mouth every other day amLODIPine (NORVASC) 2.5 mg tablet Take 1 tablet by mouth once daily. JUBLIA 10 % gunjan >Zippered Compression Knee High 30-40 mm custom CUSTOM MEASURE FOR KNEE HIGH HO COMPRESSION STOCKINGS, 30-40 MM, WITH ZIPPERS PLEASE. IF UNABLE, PLEASE REFER TO [facility] AT [facility]. DX: EDEMA multivitamin tablet Take 1 tablet by mouth once daily. Aspirin 81 mg Tab Take 81 mg by mouth once daily. cholecalciferol (VITAMIN D3) 50 mcg (2,000 unit) tablet Take by mouth once daily. CALCIUM 500 MG TAB Take 1500mg daily when she remebers naproxen sodium(ALEVE 220 MG TAB) Take one(1) tablet twice daily.as necessary triamcinolone acetonide (KENALOG) 0.1 % cream Apply 1 application to affected area three times a day for 14 days. Apply to affected area. On hand and neck nystatin-triamcinolone (MYCOLOG) ointment Apply sparingly to red areas both groins twice daily for irritation/infection. PAST MEDICAL HISTORY Diagnosis Date Anxiety state, unspecified Disorder of bone and cartilage, unspecified 05/02/2005 Iron deficiency anemias Lipoma of other skin and subcutaneous tissue 05/02/2005 Pain in limb Pneumonia 2010 PURE HYPERCHOLESTEROLEM Pure hypercholesterolemia Urinary tract infection, site not specified Social History Tobacco Use Smoking status: Never Smokeless tobacco: Never Vaping Use Vaping Use: Never used Substance Use Topics Alcohol use: Yes Comment: occasionally Drug use: No Latest Ref Rng 12/24/2018 12/12/2019 07/06/2021 07/09/2021 12/21/2021 01/05/2023 WBC 3.70 - 11.00 k/uL 5.07 6.43 7.70 RBC 3.90 - 5.20 m/uL 4.41 4.70 4.42 Hemoglobin 11.5 - 15.5 g/dL 11.9 12.4 11.5 Hematocrit 36.0 - 46.0 % 38.5 40.9 37.4 MCV 80.0 - 100.0 fL 87.3 87.0 84.6 MCH 26.0 (more content not included)... [facility] 09-15-2023 History of Present illness Narrative SUBJECTIVE: Covid-19 Vaccine( season) due on 04/20/2023 RYAN Rodriguez is a 87 year old female. PMH significant for ACTIVE PROBLEM LIST Pain in Limb Iron Deficiency Anemia Pure Hypercholesterolemia Anxiety State Disorder of Bone and Cartilage Lipoma of Other Skin and Subcutaneous Tissue Esophageal Reflux PAIN ABDOMEN( Right Upper Quadrant) GASTRITIS ANTRAL( W/O Hemorrhage) Acute Gastritis Without Mention of Hemorrhage CHOLECYSTITIS SEE ALSO GALLBLADDER CHRONIC MULTINODULAR GOITER (NONTOXIC) Phn (Postherpetic Neuralgia) Pinched Nerve in Neck Hot Flashes Essential Hypertension Pain of Left Hip Joint PCP: Ramandeep Alvarez MD Presents for concern regarding hives. Alberto Rdoriguez is a 87 year old female who presents with complaint of itchy rash on right hand, anterior aspect and at left side of her neck near her chin. No hives noted, mild erythema only. No warmth induration or drainage. She notes itchy rash bilateral groins. Both present for a few days. Home treatments have not helped much. Not spreading. Afebrile. Review of Systems Constitutional: Negative. Skin: Positive for rash. Objective BP 105/64 Pulse 80 Resp 16 Wt 60.8 kg (134 lb) BMI 25.32 kg/m Physical Exam Vitals and nursing note reviewed. Constitutional: Appearance: Normal appearance. HENT: Head: Normocephalic and atraumatic. Eyes: Conjunctiva/sclera: Conjunctivae normal. Neck: Thyroid: No thyromegaly. Vascular: Normal carotid pulses. No JVD. Cardiovascular: Rate and Rhythm: Normal rate and regular rhythm. Pulses: Carotid pulses are 2+ on the right side and 2+ on the left side. Radial pulses are 2+ on the right side and 2+ on the left side. Heart sounds: Normal heart sounds. Pulmonary: Effort: Pulmonary effort is normal. Breath sounds: Normal breath sounds. Abdominal: General: Bowel sounds are normal. Palpations: Abdomen is soft. Skin: General: Skin is warm and dry. Comments: Mild erythema to anterior aspect of right hand approximately 1 inch diameter, left side neck about 1/2 diameter with no drainage warmth or induration. Bilateral groin with erythema at groin crease appox 1/2x3 both sidescrease Neurological: General: No focal deficit present. Mental Status: She is alert and oriented to person, place, and time. ALLERGIES Allergen Reactions Vicodin [Hydrocodon* Intolerance Medication gabapentin (NEURONTIN) 100 mg capsule Take 1 capsule by mouth daily at bedtime for 180 days. estradiol (ESTRACE) 1 mg tablet Take 1 tablet by mouth once daily. Begin with half a pill, if symptoms dont get better take 1 pill nortriptyline (PAMELOR) 50 mg capsule TAKE ONE CAPSULE BY MOUTH EVERY DAY AT BEDTIME pravastatin (PRAVACHOL) 40 mg tablet Take 1 tablet by mouth daily at bedtime. losartan (COZAAR) 25 mg tablet Take 1 tablet by mouth once daily. potassium chloride (K-TAB) 10 mEq tablet Take 1 tablet by mouth daily with breakfast. On days she takes lasix furosemide (LASIX) 20 mg tablet take 1 tablet by mouth every other day amLODIPine (NORVASC) 2.5 mg tablet Take 1 tablet by mouth once daily. JUBLIA 10 % gunjan >Zippered Compression Knee High 30-40 mm custom CUSTOM MEASURE FOR KNEE HIGH HO COMPRESSION STOCKINGS, 30-40 MM, WITH ZIPPERS PLEASE. IF UNABLE, PLEASE REFER TO [facility] AT [facility]. DX: EDEMA multivitamin tablet Take 1 tablet by mouth once daily. Aspirin 81 mg Tab Take 81 mg by mouth once daily. cholecalciferol (VITAMIN D3) 50 mcg (2,000 unit) tablet Take by mouth once daily. CALCIUM 500 MG TAB Take 1500mg daily when she remebers naproxen sodium(ALEVE 220 MG TAB) Take one(1) tablet twice daily.as necessary triamcinolone acetonide (KENALOG) 0.1 % cream Apply 1 application to affected area three times a day for 14 days. Apply to affected area. On hand and neck nystatin-triamcinolone (MYCOLOG) ointment Apply sparingly to red areas both groins twice daily for irritation/infection. PAST MEDICAL HISTORY Diagnosis Date Anxiety state, unspecified Disorder of bone and cartilage, unspecified 05/02/2005 Iron deficiency anemias Lipoma of other skin and subcutaneous tissue 05/02/2005 Pain in limb Pneumonia 2010 PURE HYPERCHOLESTEROLEM Pure hypercholesterolemia Urinary tract infection, site not specified Social History Tobacco Use Smoking status: Never Smokeless tobacco: Never Vaping Use Vaping Use: Never used Substance Use Topics Alcohol use: Yes Comment: occasionally Drug use: No Latest Ref Rn 12/24/2018 12/12/2019 07/06/2021 07/09/2021 12/21/2021 01/05/2023 WBC 3.70 - 11.00 k/uL 5.07 6.43 7.70 RBC 3.90 - 5.20 m/uL 4.41 4.70 4.42 Hemoglobin 11.5 - 15.5 g/dL 11.9 12.4 11.5 Hematocrit 36.0 - 46.0 % 38.5 40.9 37.4 MCV 80.0 - 100.0 fL 87.3 87.0 84.6 MCH 26.0 - 34.0 pg 27.0 26.4 26.0 MCHC 30.5 - 36.0 g/dL 30.9 30.3 (L) 30.7 RDW-CV 11.5 - 15.0 % 14.0 15.7 (H) 16.1 (H) Platelet Count 150 - 400 k/uL 291 319 379 MPV 9.0 - 12.7 fL 10.3 9.5 9.3 Neut% % 57.3 62.9 64.1 Abs Neut (ANC) 1.45 - 7.50 k/uL 2.91 4.02 4.93 Lymph% % 28.8 25.0 23.2 Abs Lymph 1.00 - 4.00 k/uL 1.46 1.61 1.79 [place]% % 10.5 8.1 9.2 Abs [place] <0.87 k/uL 0.53 0.52 0.71 Eosin% % 2.0 2.8 2.1 Abs Eosin <0.46 k/uL 0.10 0.18 0.16 Baso% % 1.4 1.2 0.9 Abs Baso <0.11 k/uL 0.07 0.08 0.07 Immature Gran % % 0.5 IMMATURE GRANS (ABS) <0.10 k/uL 0.04 NRBC /100 WBC 0.0 Absolute nRBC <0.01 k/uL <0.01 <0.01 <0.01 DTYPE Auto Nucleated Reds 0 /100 WBC 0.0 0.0 Diff Type Auto Diff Auto Diff Protein, Total 6.3 - 8.0 g/dL 7.2 7.5 7.2 6.8 Albumin 3.9 - 4.9 g/dL 4.0 4.3 4.1 4.0 Calcium 8.5 - 10.2 mg/dL 9.3 9.6 9.6 9.5 Bilirubin, Total 0.2 - 1.3 mg/dL 0.2 0.3 0.2 0.2 Alkaline Phosphatase 34 - 123 U/L 67 82 100 85 AST 13 - 35 U/L 26 29 19 25 Glucose 74 - 99 mg/dL 98 97 91 75 BUN 7 - 21 mg/dL 17 13 18 21 Creatinine 0.58 - 0.96 mg/dL 0.84 0.87 0.89 0.91 1.01 (H) Sodium 136 - 144 mmol/L 141 139 139 140 Potassium 3.7 - 5.1 mmol/L 4.6 4.2 4.6 4.8 Chloride 97 - 105 mmol/L 103 101 101 102 CO2 22 - 30 mmol/L 24 30 28 26 Anion Gap 9 - 18 mmol/L 14 8 (L) 10 12 ALT 7 - 38 U/L 15 19 13 12 eGFR- >60 >60 eGFR-All Other Races . >60 >60 eGFR >=60 mL/min/1.73m 64 62 55 (L) Cholesterol, Total <200 mg/dL 198 203 (H) 191 Triglyceride <150 mg/dL 133 122 89 HDL Cholesterol >39 mg/dL 73 66 77 LDL Cholesterol <100 mg/dL 98 113 (H) 96 Non HDL Cholesterol <130 mg/dL 125 137 (H) 114 Fasting Time hrs 10 12 12 VLDL Cholesterol <30 mg/dL 27 24 18 TC:HDL Ratio <5.10 2.71 3.08 2.48 LDL:HDL Ratio <2.54 1.34 1.71 1.25 d Dimer <500 ng/mL FEU 700 (H) D Dimer Age-related Cutoff ng/mL FEU 830 Vitamin D 25 Hydroxy 31.0 - 80.0 ng/mL 34.8 ASSESSMENT/PLAN: 1. Rash and nonspecific skin eruption - ICD9: 782.1, ICD10: R21 No hives present. Keep both areas clean and dry. Apply topical creams as needed until resolved. - TRIAMCINOLONE ACETONIDE 0.1 % TOPICAL CREAM - for hand and neck - NYSTATIN-TRIAMCINOLONE 100,000 UNIT/GRAM-0.1 % TOPICAL OINTMENT - for groin Angélica Pulido APRN.CNS Medical Decision Making: Problems: Low: Acute, uncomplicated illness or injury Risk: Moderate: Drug management Medical Decision Making Level: 3 - Low , documented in this encounter [facility] 09-05-2023 Telephone encounter Note Pt notified of IFOBT results. Pt reports she spoke to someone who said she would be getting a call to set up biopsy appt. Blanca Smith LPN [facility] 09-05-2023 Miscellaneous Notes Pt notified of IFOBT results. Pt reports she spoke to someone who said she would be getting a call to set up biopsy appt. Blanca Smith LPN Advise pt of both messages when she calls back. (bx due to mammogram) Mara Gimenez LPN ----- Message from Angélica Puldio APRN.FUNCTIONAL ARCHITECT sent at 09/03/2023 3:49 PM EDT ----- Needs biopsy scheduled Left a message for pt to call the office and ask to speak to a nurse. Mara Gimenez LPN ----- Message from Angélica Pulido APRN.FUNCTIONAL ARCHITECT sent at 09/03/2023 2:08 PM EDT ----- FOBT negative documented in this encounter [facility] 09-05-2023 Telephone encounter Note Advise pt of both messages when she calls back. (bx due to mammogram) Mara Gimenez LPN [facility] 09-05-2023 Telephone encounter Note ----- Message from Angélica Pulido APRN.FUNCTIONAL ARCHITECT sent at 09/03/2023 3:49 PM EDT ----- Needs biopsy scheduled [facility] 09-05-2023 Telephone encounter Note Left a message for pt to call the office and ask to speak to a nurse. Mara Gimenez LPN [facility] 09-05-2023 Telephone encounter Note ----- Message from Angélica Pulido APRN.FUNCTIONAL ARCHITECT sent at 09/03/2023 2:08 PM EDT ----- FOBT negative T [facility] 09-04-2023 Note HNO ID: [id number] Author: AYO JOEL MD Service: ? Author Type: Physician Type: Progress Notes Filed: 09/04/2023 14:10 Note Text: I am reviewing diagnostic breast imaging from [place] in order to approve a biopsy request. Two site right stereotactic biopsy has been recommended from imaging done on 08/22/2023. The patient may schedule. A nurse navigator will contact the patient. Jan Joel MD [facility] 09-04-2023 History of Present illness Narrative I am reviewing diagnostic breast imaging from [place] in order to approve a biopsy request. Two site right stereotactic biopsy has been recommended from imaging done on 08/22/2023. The patient may schedule. A nurse navigator will contact the patient. Jan Joel MD documented in this encounter [facility] 08-29-2023 Note HNO ID: [id number] Author: RILEY GREGORY MD Service: ? Author Type: Physician Type: Progress Notes Filed: 08/29/2023 18:10 Note Text: HISTORY AND PHYSICAL - BREAST COMPLAINT -RIGHT BREAST MICROCALCIFICATIONS Alberto Rodriguez 1935 REFERRING PHYSICIAN: Angélica Pulido CHIEF COMPLAINT: Abnormal breast imaging HPI: The patient is a 87 year old female with a complaint of an abnormal mammogram. The patient had a screening mammogram on July 27, 2023 with a follow-up diagnostic bilateral mammogram withleft breast ultrasound on August 22, 2023 which demonstrated: IMPRESSION: SUSPICIOUS FINDING - BIOPSY SHOULD BE CONSIDERED The grouped pleomorphic calcifications in the right breast superior lateral quadrant middle depth are suspicious of malignancy. A stereotactic biopsy is recommended. The grouped heterogeneous calcifications in the right breast central to the nipple anterior depth are suspicious of malignancy. A stereotactic biopsy is recommended. The 6 mm oval asymmetry in the left breast at 6 o'clock posterior depth is indeterminate. An ultrasound is recommended. LIMITED ULTRASOUND OF LEFT BREAST: 08/22/2023 RESULT: Comparison is made to exams dated: 07/27/2023 mammogram, 07/01/2021 mammogram, and 06/03/2020 mammogram - [facility]. Color flow and real-time ultrasound of the left breast 6 o'clock region were performed. Nation scale images of the real-time examination were reviewed. There is a benign 0.8 cm x 0.6 cm x 0.8 cm oval cyst in the left breast at 6 o'clock posterior depth. This correlates with mammography findings. Color flow imaging demonstrates that there is no vascularity present. IMPRESSION: BENIGN FINDING There is no sonographic evidence of malignancy. The 0.8 cm x 0.6 cm x 0.8 cm oval cyst in the left breast is consistent with a simple cyst and is benign. The patient denies a history of malignant breast masses. She did have a previous excision of a left breast mass many years previously which was apparently unremarkable. She has 2 sisters each of which were diagnosed with breast cancer one at age 35. She does perform a self breast exam routinely. She notes no skin changes. She denies nipple discharge. She notes no axillary masses. She states she has had areas that she told had microcalcifications in the past. The patient is being seen by me today at the request of Angélica Pulido for my opinion and advice regarding abnormal right breast imaging with microcalcifications and benign appearing left breast cyst. PAST MEDICAL HISTORY Diagnosis Date Anxiety state, unspecified Disorder of bone and cartilage, unspecified 05/02/2005 Iron deficiency anemias Lipoma of other skin and subcutaneous tissue 05/02/2005 Pain in limb Pneumonia 2010 PURE HYPERCHOLESTEROLEM Pure hypercholesterolemia Urinary tract infection, site not specified PAST SURGICAL HISTORY Procedure Laterality Date COLONOSCOPY FLX DX W/COLLJ SPEC WHEN PFRMD 07/18/03 cecal lipoma, otherwise normal COLONOSCOPY FLX DX W/COLLJ SPEC WHEN PFRMD 06/27/2017 Colonoscopy EGD TRANSORAL BIOPSY SINGLE/MULTIPLE 07/27/07 Doyle-gastritis LAPS SURG CHOLECYSTECTOMY W/CHOLANGIOGRAPHY 08-02-07 RPR 1ST INCAL/VNT HERNIA INCARCERATED 08-02-07 TOTAL ABDOMINAL HYSTERECT W/WO RMVL TUBE OVARY Hysterectomy, JAGRUTI Current Outpatient Medications Medication Sig Dispense Refill ferrous sulfate 325 mg (65 mg iron) tablet Take 1 tablet by mouth every other day. 30 tablet 0 gabapentin (NEURONTIN) 100 mg capsule Take 1 capsule by mouth daily at bedtime for 180 days. 90 capsule 1 estradiol (ESTRACE) 1 mg tablet Take 1 tablet by mouth once daily. Begin with half a pill, if symptoms dont get better take 1 pill 90 tablet 3 nortriptyline (PAMELOR) 50 mg capsule TAKE ONE CAPSULE BY MOUTH EVERY DAY AT BEDTIME 90 capsule 3 pravastatin (PRAVACHOL) 40 mg tablet Take 1 tablet by mouth daily at bedtime. 90 tablet 3 losartan (COZAAR) 25 mg tablet Take 1 tablet by mouth once daily. 90 tablet 3 potassium chloride (K-TAB) 10 mEq tablet Take 1 tablet by mouth daily with breakfast. On days she takes lasix 90 tablet 0 furosemide (LASIX) 20 mg tablet take 1 tablet by mouth every other day 45 tablet 3 amLODIPine (NORVASC) 2.5 mg tablet Take 1 tablet by mouth once daily. 90 tablet 3 JUBLIA 10 % gunjan >Zippered Compression Knee High 30-40 mm custom CUSTOM MEASURE FOR KNEE HIGH HO COMPRESSION STOCKINGS, 30-40 MM, WITH ZIPPERS PLEASE. IF UNABLE, PLEASE REFER TO CHUNG AT [facility]. DX: EDEMA 1 Each 0 multivitamin tablet Take 1 tablet by mouth once daily. 0 Aspirin 81 mg Tab Take 81 mg by mouth once daily. cholecalciferol (VITAMIN D3) 50 mcg (2,000 unit) tablet Take by mouth once daily. CALCIUM 500 MG TAB Take 1500mg daily when she remebers 0 0 naproxen sodium(ALEVE 220 MG TAB) Take one(1) tablet twice daily.as necessary 0 0 No current facility-administered medications for this visit. ALLERGIES: Vicodin [Hydrocodon (more content not included)... [facility] 08-29-2023 History of Present illness Narrative HISTORY AND PHYSICAL - BREAST COMPLAINT -RIGHT BREAST MICROCALCIFICATIONS Alberto Rodriguez 1935 REFERRING PHYSICIAN: Angélica Pulido CHIEF COMPLAINT: Abnormal breast imaging HPI: The patient is a 87 year old female with a complaint of an abnormal mammogram. The patient had a screening mammogram on July 27, 2023 with a follow-up diagnostic bilateral mammogram withleft breast ultrasound on August 22, 2023 which demonstrated: IMPRESSION: SUSPICIOUS FINDING - BIOPSY SHOULD BE CONSIDERED The grouped pleomorphic calcifications in the right breast superior lateral quadrant middle depth are suspicious of malignancy. A stereotactic biopsy is recommended. The grouped heterogeneous calcifications in the right breast central to the nipple anterior depth are suspicious of malignancy. A stereotactic biopsy is recommended. The 6 mm oval asymmetry in the left breast at 6 o'clock posterior depth is indeterminate. An ultrasound is recommended. LIMITED ULTRASOUND OF LEFT BREAST: 08/22/2023 RESULT: Comparison is made to exams dated: 07/27/2023 mammogram, 07/01/2021 mammogram, and 06/03/2020 mammogram - [facility]. Color flow and real-time ultrasound of the left breast 6 o'clock region were performed. Nation scale images of the real-time examination were reviewed. There is a benign 0.8 cm x 0.6 cm x 0.8 cm oval cyst in the left breast at 6 o'clock posterior depth. This correlates with mammography findings. Color flow imaging demonstrates that there is no vascularity present. IMPRESSION: BENIGN FINDING There is no sonographic evidence of malignancy. The 0.8 cm x 0.6 cm x 0.8 cm oval cyst in the left breast is consistent with a simple cyst and is benign. The patient denies a history of malignant breast masses. She did have a previous excision of a left breast mass many years previously which was apparently unremarkable. She has 2 sisters each of which were diagnosed with breast cancer one at age 35. She does perform a self breast exam routinely. She notes no skin changes. She denies nipple discharge. She notes no axillary masses. She states she has had areas that she told had microcalcifications in the past. The patient is being seen by me today at the request of Angélica Pulido for my opinion and advice regarding abnormal right breast imaging with microcalcifications and benign appearing left breast cyst. PAST MEDICAL HISTORY Diagnosis Date Anxiety state, unspecified Disorder of bone and cartilage, unspecified 05/02/2005 Iron deficiency anemias Lipoma of other skin and subcutaneous tissue 05/02/2005 Pain in limb Pneumonia 2010 PURE HYPERCHOLESTEROLEM Pure hypercholesterolemia Urinary tract infection, site not specified PAST SURGICAL HISTORY Procedure Laterality Date COLONOSCOPY FLX DX W/COLLJ SPEC WHEN PFRMD 07/18/03 cecal lipoma, otherwise normal COLONOSCOPY FLX DX W/COLLJ SPEC WHEN PFRMD 06/27/2017 Colonoscopy EGD TRANSORAL BIOPSY SINGLE/MULTIPLE 07/27/07 Doyle-gastritis LAPS SURG CHOLECYSTECTOMY W/CHOLANGIOGRAPHY 08-02-07 RPR 1ST INCAL/VNT HERNIA INCARCERATED 08-02-07 TOTAL ABDOMINAL HYSTERECT W/WO RMVL TUBE OVARY Hysterectomy, JAGRUTI Current Outpatient Medications Medication Sig Dispense Refill ferrous sulfate 325 mg (65 mg iron) tablet Take 1 tablet by mouth every other day. 30 tablet 0 gabapentin (NEURONTIN) 100 mg capsule Take 1 capsule by mouth daily at bedtime for 180 days. 90 capsule 1 estradiol (ESTRACE) 1 mg tablet Take 1 tablet by mouth once daily. Begin with half a pill, if symptoms dont get better take 1 pill 90 tablet 3 nortriptyline (PAMELOR) 50 mg capsule TAKE ONE CAPSULE BY MOUTH EVERY DAY AT BEDTIME 90 capsule 3 pravastatin (PRAVACHOL) 40 mg tablet Take 1 tablet by mouth daily at bedtime. 90 tablet 3 losartan (COZAAR) 25 mg tablet Take 1 tablet by mouth once daily. 90 tablet 3 potassium chloride (K-TAB) 10 mEq tablet Take 1 tablet by mouth daily with breakfast. On days she takes lasix 90 tablet 0 furosemide (LASIX) 20 mg tablet take 1 tablet by mouth every other day 45 tablet 3 amLODIPine (NORVASC) 2.5 mg tablet Take 1 tablet by mouth once daily. 90 tablet 3 JUBLIA 10 % gunjan >Zippered Compression Knee High 30-40 mm custom CUSTOM MEASURE FOR KNEE HIGH HO COMPRESSION STOCKINGS, 30-40 MM, WITH ZIPPERS PLEASE. IF UNABLE, PLEASE REFER TO CHUNG AT [facility]. DX: EDEMA 1 Each 0 multivitamin tablet Take 1 tablet by mouth once daily. 0 Aspirin 81 mg Tab Take 81 mg by mouth once daily. cholecalciferol (VITAMIN D3) 50 mcg (2,000 unit) tablet Take by mouth once daily. CALCIUM 500 MG TAB Take 1500mg daily when she remebers 0 0 naproxen sodium(ALEVE 220 MG TAB) Take one(1) tablet twice daily.as necessary 0 0 No current facility-administered medications for this visit. ALLERGIES: Vicodin [Hydrocodone-Acetaminophen] PERSONAL HISTORY: Social History Tobacco Use Smoking status: Never Smokeless tobacco: Never Vaping Use Vaping Use: Never used Substance Use Topics Alcohol use: Yes Comment: occasionally Drug use: No FAMILY HISTORY: FAMILY HISTORY Problem Relation Age of Onset Heart disease Mother Asthma Father REVIEW OF SYMPTOMS: The review of systems data was entered by the nurse and reviewed by mo Nursing Notes: Lacey Richmond LPN 08/29/2023 4:11 PM Signed REVIEW OF SYSTEMS: General: The patient denies fatigue, denies weight loss, denies weight gain, denies feeling hot, and denies feelings of cold. Eyes: The patient denies glaucoma, denies eye injury/surgery, wears glasses or contacts. Ear/Nose/Throat: The patient denies allergies, denies hayfever, denies ear infections, and denies bloody noses. Cardiovascular: The patient denies chest pain, denies heart disease, denies high blood pressure,denies cardiac stent, denies prior heart attack, denies irregular heart beat, NOTES high cholesterol, denies poor circulation, denies heart failure, other cardiac issues, denies claudication, denies cold feet, denies peripheral arterial stent. Respiratory: The patient denies tuberculosis, denies pneumonia, denies frequent cough, denies pulmonary embolism, denies shortness of breath, and denies coughing up blood. Gastrointestinal: The patient denies difficulty swallowing, denies acid reflux, denies ulcers, denies vomiting, denies jaundice/hepatitis, denies gallbladder problems, denies black or tarry stools, denies hemorrhoids, denies bleeding from rectum, denies diverticulitis, denies constipation, denies diarrhea, denies loss of stool control, and denies hernias. Kidney/Bladder: The patient denies kidney stones, denies urine infections, and denies bloody urine. Skin: The patient denies a history of skin cancer, denies bleeding/changing moles, and denies a history of skin rash. Neurologic: The patient denies a history of epilepsy/convulsions, denies headaches, denies head/spinal injuries, and denies stroke/TIA. Psychiatric: The patient denies psychiatric medications, denies depression, and denies voices, denies substance abuse. Endocrine: The patient denies thyroid disorders, denies diabetes, and denies hormonal problems. Hematologic: The patient denies a history of bruising, denies bleeding, and denies anemia, denies blood clots. Infections: The patient denies a history of measles and mumps, denies rheumatic fever, and denies sexually transmitted diseases. Musculoskeletal: The patient denies back pain/injury, denies back problems, denies sciatica, denies knee/foot trouble, NOTES arthritis, or denies gout. When was patient's last Mammogram screening? 2023 Last Colonoscopy: 2017 Lacey Richmond LPN PHYSICAL EXAMINATION: General: The patient is 87 year old female, well nourished, well hydrated in no acute distress. The patient is oriented to time, place, and person. VITALS: Blood pressure 112/64, height 154.9 cm (5' 1), weight 63 kg (139 lb). Body mass index is 26.26 kg/m . HEENT: Normal cephalic, ataumatic, pupils are equally round, sclera are anicteric, mucous membranes are moist, oropharynx is clear. Neck has no masses, asymmetry or lymphadenopathy. Thyroid is unremarkable. Respiratory: Clear to auscultation and percussion. Normal respiratory excursion and pattern. Cardiac: Examination is regular rate and rhythm. Abdominal exam: exam deferred Rectal exam: exam deferred Extremities: exam deferred Breast: Visual inspection reveals no retractions, nipple inversion, or skin changes. Palpation of the right breast reveals no dominant or suspicious masses. Palpation of the left breast reveals no dominant or suspicious masses. Axillary exam demonstrates no suspicious masses in either the left or right axilla. There is no nipple discharge expressed from either the left or right breast. LABORATORY VALUES: As Noted RADIOLOGIC STUDIES: As Noted Assessment IMPRESSION: right breast increasing microcalcifications, left breast cyst, strong family history PLAN: I plan to refer the patient for a stereotactic biopsy of the right breast. The planned surgical procedure was discussed extensively with the patient. The risks, benefits, anticipated outcomes and possible complications were mentioned. My staff has also explained the procedure in understandable terms and the patient was given the option to take printed material concerning the planned procedure. The patient had the opportunity to ask questions concerning the planned procedure. The patient freely consents to the planned procedure. Diagnoses: (R92.8) Abnormal finding on breast imaging (primary encounter diagnosis) My findings have been communicated to Angélica Pulido via shared medical record. This note will be forwarded to Ramandeep Alvarez MD. Return to Clinic: The patient is instructed to follow-up with me after the testing has been completed. Riley Gregory MD documented in this encounter [facility] 08-29-2023 Nurse Note REVIEW OF SYSTEMS: General: The patient denies fatigue, denies weight loss, denies weight gain, denies feeling hot, and denies feelings of cold. Eyes: The patient denies glaucoma, denies eye injury/surgery, wears glasses or contacts. Ear/Nose/Throat: The patient denies allergies, denies hayfever, denies ear infections, and denies bloody noses. Cardiovascular: The patient denies chest pain, denies heart disease, denies high blood pressure,denies cardiac stent, denies prior heart attack, denies irregular heart beat, NOTES high cholesterol, denies poor circulation, denies heart failure, other cardiac issues, denies claudication, denies cold feet, denies peripheral arterial stent. Respiratory: The patient denies tuberculosis, denies pneumonia, denies frequent cough, denies pulmonary embolism, denies shortness of breath, and denies coughing up blood. Gastrointestinal: The patient denies difficulty swallowing, denies acid reflux, denies ulcers, denies vomiting, denies jaundice/hepatitis, denies gallbladder problems, denies black or tarry stools, denies hemorrhoids, denies bleeding from rectum, denies diverticulitis, denies constipation, denies diarrhea, denies loss of stool control, and denies hernias. Kidney/Bladder: The patient denies kidney stones, denies urine infections, and denies bloody urine. Skin: The patient denies a history of skin cancer, denies bleeding/changing moles, and denies a history of skin rash. Neurologic: The patient denies a history of epilepsy/convulsions, denies headaches, denies head/spinal injuries, and denies stroke/TIA. Psychiatric: The patient denies psychiatric medications, denies depression, and denies voices, denies substance abuse. Endocrine: The patient denies thyroid disorders, denies diabetes, and denies hormonal problems. Hematologic: The patient denies a history of bruising, denies bleeding, and denies anemia, denies blood clots. Infections: The patient denies a history of measles and mumps, denies rheumatic fever, and denies sexually transmitted diseases. Musculoskeletal: The patient denies back pain/injury, denies back problems, denies sciatica, denies knee/foot trouble, NOTES arthritis, or denies gout. When was patient's last Mammogram screening? 2023 Last Colonoscopy: 2017 Lacey Richmond LPN [facility] 08-29-2023 Nurse Note REVIEW OF SYSTEMS: General: The patient denies fatigue, denies weight loss, denies weight gain, denies feeling hot, and denies feelings of cold. Eyes: The patient denies glaucoma, denies eye injury/surgery, wears glasses or contacts. Ear/Nose/Throat: The patient denies allergies, denies hayfever, denies ear infections, and denies bloody noses. Cardiovascular: The patient denies chest pain, denies heart disease, denies high blood pressure,denies cardiac stent, denies prior heart attack, denies irregular heart beat, NOTES high cholesterol, denies poor circulation, denies heart failure, other cardiac issues, denies claudication, denies cold feet, denies peripheral arterial stent. Respiratory: The patient denies tuberculosis, denies pneumonia, denies frequent cough, denies pulmonary embolism, denies shortness of breath, and denies coughing up blood. Gastrointestinal: The patient denies difficulty swallowing, denies acid reflux, denies ulcers, denies vomiting, denies jaundice/hepatitis, denies gallbladder problems, denies black or tarry stools, denies hemorrhoids, denies bleeding from rectum, denies diverticulitis, denies constipation, denies diarrhea, denies loss of stool control, and denies hernias. Kidney/Bladder: The patient denies kidney stones, denies urine infections, and denies bloody urine. Skin: The patient denies a history of skin cancer, denies bleeding/changing moles, and denies a history of skin rash. Neurologic: The patient denies a history of epilepsy/convulsions, denies headaches, denies head/spinal injuries, and denies stroke/TIA. Psychiatric: The patient denies psychiatric medications, denies depression, and denies voices, denies substance abuse. Endocrine: The patient denies thyroid disorders, denies diabetes, and denies hormonal problems. Hematologic: The patient denies a history of bruising, denies bleeding, and denies anemia, denies blood clots. Infections: The patient denies a history of measles and mumps, denies rheumatic fever, and denies sexually transmitted diseases. Musculoskeletal: The patient denies back pain/injury, denies back problems, denies sciatica, denies knee/foot trouble, NOTES arthritis, or denies gout. When was patient's last Mammogram screening? 2023 Last Colonoscopy: 2017 Lacey Richmond LPN documented in this encounter [facility] 08-29-2023 Telephone encounter Note Per Dr. Gregory patient to have left stereo breast biopsy. Per protocol email sent to [facility] contacts to have radiologist review and call patient to schedule accordingly. Patient aware of steps needed to be completed prior to scheduling. Patient given my direct line for any further assistance Shannan Corrigan Contracting Analyst [facility] 08-29-[address] Gregory patient to have left stereo breast biopsy. Per protocol email sent to [facility] contacts to have radiologist review and call patient to schedule accordingly. Patient aware of steps needed to be completed prior to scheduling. Patient given my direct line for any further assistance Shannan Corrigan Contracting Analyst documented in this encounter [facility] 08-22-2023 History of Present illness Narrative Radiology Service Progress Note PATIENT NAME: Alberto Rodriguez DATE OF SERVICE: August 22, 2023 TIME: 3:09 PM PATIENT IDENTITY VERIFICATION COMPLETED USING TWO (2) IDENTIFIERS: Name and Date of confirmed by patient verbally. FALL SCREENING: Has the patient had 2 falls in the last year or 1 fall with injury or currently using an Ambulatory Assistive Device (Walker, Cane, Wheelchair, Crutches, etc.)? No PATIENT GENDER DATA: Female. status: : No status: NO. PATIENT RELEVANT IMPLANT DATA REVIEWED: Not Applicable PATIENT PRESENTS WITH AN IMPLANTABLE OR ATTACHED INTELLIGENCE OPERATIONS SPECIALIST: No RADIOLOGY DEPARTMENT: Ultrasound PERIPHERAL IV DATA: Not applicable SIGNED BY: Izzy Andrea RDMS RVT August 22, 2023 3:09 PM documented in this encounter [facility] 08-22-2023 History of Present illness Narrative Radiology Service Progress Note PATIENT NAME: Alberto Rodriguez DATE OF SERVICE: August 22, 2023 TIME: 7:59 AM PATIENT IDENTITY VERIFICATION COMPLETED USING TWO (2) IDENTIFIERS: Name and Date of confirmed by patient verbally. FALL SCREENING: Has the patient had 2 falls in the last year or 1 fall with injury or currently using an Ambulatory Assistive Device (Walker, Cane, Wheelchair, Crutches, etc.)? No PATIENT GENDER DATA: Female. status: : No status: NO. PATIENT RELEVANT IMPLANT DATA REVIEWED: Not Applicable PATIENT PRESENTS WITH AN IMPLANTABLE OR ATTACHED INTELLIGENCE OPERATIONS SPECIALIST: No RADIOLOGY DEPARTMENT: Mammography PERIPHERAL IV DATA: Not applicable SIGNED BY: Alf Oilvero Kevin August 22, 2023 7:59 AM documented in this encounter [facility] 08-22-2023 Miscellaneous Notes Benign findings left, biopsy recommended on right. Has general surgery appointment scheduled in August. documented in this encounter [facility] 08-22-2023 Progress note Formatting of t his note might be different from the original. Benign findings left, biopsy recommended on right. Has general surgery appointment scheduled in August. [facility] 08-10-2023 Telephone encounter Note Patient returned call and went over notes below from Angélica Pulido TRANSCRIPTIONIST with understanding. Aware iron rx sent to pharmacy. [facility] 08-10-2023 Miscellaneous Notes Patient returned call and went over notes below from Angélica Pulido TRANSCRIPTIONIST with understanding. Aware iron rx sent to pharmacy. No answer. Left message for patient to call office and ask to speak to a nurse. Recommend bringing in the fecal occult blood test at her earliest convenience. Then start taking iron every other day. Taking with vitamin C can help with absorption. May cause constipation so would add Colace if needed while taking this. Pt called and is notified of results and given providers message. Pt voices understanding. Will come and molded goods spot picker stool card this week. Patient says she has been noticing more fatigue recently. If pharmacy needed, uses [facility] in [place]. Phoned patient left message to return call and ask to speak to a nurse. Please let her know that recent CBC showed some mild anemia compared to previous. Check to see if any abdominal pain or bleeding is noted. Would recommend FOBT at her convenience. Check CBC again in 1-2 months Metabolic panel in acceptable range, creatinine slightly elevated but stable. Otherwise within normal limits. Cholesterol is in acceptable range. TSH is a bit elevated, check to see if any fatigue or weight gain. A1c 5.8%, at risk for type 2 diabetes. Endorse avoiding excess sugary foods and carbohydrates in diet Latest Ref Rng 12/24/2018 12/12/2019 07/06/2021 07/09/2021 12/21/2021 01/05/2023 07/11/2023 WBC 3.70 - 11.00 k/uL 6.43 7.70 8.02 RBC 3.90 - 5.20 m/uL 4.70 4.42 4.25 Hemoglobin 11.5 - 15.5 g/dL 12.4 11.5 10.8 (L) Hematocrit 36.0 - 46.0 % 40.9 37.4 35.2 (L) MCV 80.0 - 100.0 fL 87.0 84.6 82.8 MCH 26.0 - 34.0 pg 26.4 26.0 25.4 (L) MCHC 30.5 - 36.0 g/dL 30.3 (L) 30.7 30.7 RDW-CV 11.5 - 15.0 % 15.7 (H) 16.1 (H) 16.6 (H) Platelet Count 150 - 400 k/uL 319 379 407 (H) MPV 9.0 - 12.7 fL 9.5 9.3 9.3 Neut% % 62.9 64.1 68.0 Abs Neut (ANC) 1.45 - 7.50 k/uL 4.02 4.93 5.46 Lymph% % 25.0 23.2 20.6 Abs Lymph 1.00 - 4.00 k/uL 1.61 1.79 1.65 [place]% % 8.1 9.2 8.1 Abs [place] <0.87 k/uL 0.52 0.71 0.65 Eosin% % 2.8 2.1 1.9 Abs Eosin <0.46 k/uL 0.18 0.16 0.15 Baso% % 1.2 0.9 0.9 Abs Baso <0.11 k/uL 0.08 0.07 0.07 Immature Gran % % 0.5 0.5 IMMATURE GRANS (ABS) <0.10 k/uL 0.04 0.04 NRBC /100 WBC 0.0 0.0 Absolute nRBC <0.01 k/uL <0.01 <0.01 <0.01 DTYPE Auto Auto Nucleated Reds 0 /100 WBC 0.0 Diff Type Auto Diff Protein, Total 6.3 - 8.0 g/dL 7.2 7.5 7.2 6.8 7.6 Albumin 3.9 - 4.9 g/dL 4.0 4.3 4.1 4.0 4.1 Calcium 8.5 - 10.2 mg/dL 9.3 9.6 9.6 9.5 9.8 Bilirubin, Total 0.2 - 1.3 mg/dL 0.2 0.3 0.2 0.2 0.2 Alkaline Phosphatase 34 - 123 U/L 67 82 100 85 111 AST 13 - 35 U/L 26 29 19 25 24 Glucose 74 - 99 mg/dL 98 97 91 75 83 BUN 7 - 21 mg/dL 17 13 18 21 19 Creatinine 0.58 - 0.96 mg/dL 0.84 0.87 0.89 0.91 1.01 (H) 1.00 (H) Sodium 136 - 144 mmol/L 141 139 139 140 140 Potassium 3.7 - 5.1 mmol/L 4.6 4.2 4.6 4.8 4.7 Chloride 97 - 105 mmol/L 103 101 101 102 102 CO2 22 - 30 mmol/L 24 30 28 26 24 Anion Gap 9 - 18 mmol/L 14 8 (L) 10 12 14 ALT 7 - 38 U/L 15 19 13 12 14 eGFR- >60 >60 eGFR-All Other Races . >60 >60 eGFR >=60 mL/min/1.73m 64 62 55 (L) 55 (L) Cholesterol, Total <200 mg/dL 198 203 (H) 191 209 (H) Triglyceride <150 mg/dL 133 122 89 147 HDL Cholesterol >39 mg/dL 73 66 77 74 LDL Cholesterol <100 mg/dL 98 113 (H) 96 106 (H) Non HDL Cholesterol <130 mg/dL 125 137 (H) 114 135 (H) Fasting Time hrs 10 12 12 15 VLDL Cholesterol <30 mg/dL 27 24 18 29 TC:HDL Ratio <5.10 2.71 3.08 2.48 2.82 LDL:HDL Ratio <2.54 1.34 1.71 1.25 1.43 d Dimer <500 ng/mL FEU 700 (H) D Dimer Age-related Cutoff ng/mL FEU 830 Hemoglobin A1C 4.3 - 5.6 % 5.8 (H) Estimated Average Glucose mg/dL 120 Vitamin D 25 Hydroxy 31.0 - 80.0 ng/mL 34.8 33.8 TSH 0.270 - 4.200 mIU/L 4.470 (H) Legend: (L) Low (H) High documented in this encounter [facility] 08-10-2023 Telephone encounter Note No answer. Left message for patient to call office and ask to speak to a nurse. [facility] 08-10-2023 Telephone encounter Note Recommend bringing in the fecal occult blood test at her earliest convenience. Then start taking iron every other day. Taking with vitamin C can help with absorption. May cause constipation so would add Colace if needed while taking this. [facility] 08-09-2023 Telephone encounter Note Pt called and is notified of results and given providers message. Pt voices understanding. Will come and molded goods spot picker stool card this week. Patient says she has been noticing more fatigue recently. If pharmacy needed, uses [facility] in [place]. [facility] 08-08-2023 Telephone encounter Note Phoned patient left message to return call and ask to speak to a nurse. T [facility] 08-08-2023 Telephone encounter Note Please let her know that recent CBC showed some mild anemia compared to previous. Check to see if any abdominal pain or bleeding is noted. Would recommend FOBT at her convenience. Check CBC again in 1-2 months Metabolic panel in acceptable range, creatinine slightly elevated but stable. Otherwise within normal limits. Cholesterol is in acceptable range. TSH is a bit elevated, check to see if any fatigue or weight gain. A1c 5.8%, at risk for type 2 diabetes. Endorse avoiding excess sugary foods and carbohydrates in diet Latest Ref Rng 12/24/2018 12/12/2019 07/06/2021 07/09/2021 12/21/2021 01/05/2023 07/11/2023 WBC 3.70 - 11.00 k/uL 6.43 7.70 8.02 RBC 3.90 - 5.20 m/uL 4.70 4.42 4.25 Hemoglobin 11.5 - 15.5 g/dL 12.4 11.5 10.8 (L) Hematocrit 36.0 - 46.0 % 40.9 37.4 35.2 (L) MCV 80.0 - 100.0 fL 87.0 84.6 82.8 MCH 26.0 - 34.0 pg 26.4 26.0 25.4 (L) MCHC 30.5 - 36.0 g/dL 30.3 (L) 30.7 30.7 RDW-CV 11.5 - 15.0 % 15.7 (H) 16.1 (H) 16.6 (H) Platelet Count 150 - 400 k/uL 319 379 407 (H) MPV 9.0 - 12.7 fL 9.5 9.3 9.3 Neut% % 62.9 64.1 68.0 Abs Neut (ANC) 1.45 - 7.50 k/uL 4.02 4.93 5.46 Lymph% % 25.0 23.2 20.6 Abs Lymph 1.00 - 4.00 k/uL 1.61 1.79 1.65 [place]% % 8.1 9.2 8.1 Abs [place] <0.87 k/uL 0.52 0.71 0.65 Eosin% % 2.8 2.1 1.9 Abs Eosin <0.46 k/uL 0.18 0.16 0.15 Baso% % 1.2 0.9 0.9 Abs Baso <0.11 k/uL 0.08 0.07 0.07 Immature Gran % % 0.5 0.5 IMMATURE GRANS (ABS) <0.10 k/uL 0.04 0.04 NRBC /100 WBC 0.0 0.0 Absolute nRBC <0.01 k/uL <0.01 <0.01 <0.01 DTYPE Auto Auto Nucleated Reds 0 /100 WBC 0.0 Diff Type Auto Diff Protein, Total 6.3 - 8.0 g/dL 7.2 7.5 7.2 6.8 7.6 Albumin 3.9 - 4.9 g/dL 4.0 4.3 4.1 4.0 4.1 Calcium 8.5 - 10.2 mg/dL 9.3 9.6 9.6 9.5 9.8 Bilirubin, Total 0.2 - 1.3 mg/dL 0.2 0.3 0.2 0.2 0.2 Alkaline Phosphatase 34 - 123 U/L 67 82 100 85 111 AST 13 - 35 U/L 26 29 19 25 24 Glucose 74 - 99 mg/dL 98 97 91 75 83 BUN 7 - 21 mg/dL 17 13 18 21 19 Creatinine 0.58 - 0.96 mg/dL 0.84 0.87 0.89 0.91 1.01 (H) 1.00 (H) Sodium 136 - 144 mmol/L 141 139 139 140 140 Potassium 3.7 - 5.1 mmol/L 4.6 4.2 4.6 4.8 4.7 Chloride 97 - 105 mmol/L 103 101 101 102 102 CO2 22 - 30 mmol/L 24 30 28 26 24 Anion Gap 9 - 18 mmol/L 14 8 (L) 10 12 14 ALT 7 - 38 U/L 15 19 13 12 14 eGFR- >60 >60 eGFR-All Other Races . >60 >60 eGFR >=60 mL/min/1.73m 64 62 55 (L) 55 (L) Cholesterol, Total <200 mg/dL 198 203 (H) 191 209 (H) Triglyceride <150 mg/dL 133 122 89 147 HDL Cholesterol >39 mg/dL 73 66 77 74 LDL Cholesterol <100 mg/dL 98 113 (H) 96 106 (H) Non HDL Cholesterol <130 mg/dL 125 137 (H) 114 135 (H) Fasting Time hrs 10 12 12 15 VLDL Cholesterol <30 mg/dL 27 24 18 29 TC:HDL Ratio <5.10 2.71 3.08 2.48 2.82 LDL:HDL Ratio <2.54 1.34 1.71 1.25 1.43 d Dimer <500 ng/mL FEU 700 (H) D Dimer Age-related Cutoff ng/mL FEU 830 Hemoglobin A1C 4.3 - 5.6 % 5.8 (H) Estimated Average Glucose mg/dL 120 Vitamin D 25 Hydroxy 31.0 - 80.0 ng/mL 34.8 33.8 TSH 0.270 - 4.200 mIU/L 4.470 (H) Legend: (L) Low (H) High [facility] 08-04-2023 Telephone encounter Note No answer. Left providers message and ask patient to call office and ask to speak to a nurse with any questions or concerns [facility] 08-04-2023 Miscellaneous Notes No answer. Left providers message and ask patient to call office and ask to speak to a nurse with any questions or concerns ----- Message from Angélica Pulido APRN.FUNCTIONAL ARCHITECT sent at 08/03/2023 4:22 PM EDT ----- Please let her know that BMD shows normal bone density. documented in this encounter [facility] 08-04-2023 Telephone encounter Note ----- Message from Angélica Pulido APRN.FUNCTIONAL ARCHITECT sent at 08/03/2023 4:22 PM EDT ----- Please let her know that BMD shows normal bone density. [facility] 08-02-2023 Telephone encounter Note Patient notified of results and provider's instructions. Patient verbalizes understanding. Reny Brunson RN [facility] 08-02-2023 Miscellaneous Notes Patient notified of results and provider's instructions. Patient verbalizes understanding. Reny Brunson RN Left a message for pt to call the office and ask to speak to a nurse. Mara Gimenez LPN ----- Message from Angélica Pulido APRN.FUNCTIONAL ARCHITECT sent at 07/30/2023 11:57 AM EDT ----- Please let patient know that additional imaging recommended. Please schedule diagnostic mammograms and ultrasound. documented in this encounter [facility] 07-31-2023 Telephone encounter Note Left a message for pt to call the office and ask to speak to a nurse. Mara Gimenez LPN [facility] 07-31-2023 Telephone encounter Note ----- Message from Angélica Pulido APRN.FUNCTIONAL ARCHITECT sent at 07/30/2023 11:57 AM EDT ----- Please let patient know that additional imaging recommended. Please schedule diagnostic mammograms and ultrasound. [facility] 07-28-2023 Note Formatting of this n ote might be different from the original. July 28, 2023 PID: [id number] Alberto Rodriguez [address] [place] [id number] Dear Ms. Rodriguez, Your recent breast imaging exam on 07/27/2023 showed a possible finding that requires additional imaging studies for a complete evaluation. Most such findings are probably benign (not cancer). Your mammogram demonstrates that you have dense breast tissue, which could hide abnormalities. Dense breast tissue, in and of itself, is a relatively common condition. Therefore, this information is not provided to cause undue concern; rather, it is to raise your awareness and promote discussion with your health care provider regarding the presence of dense breast tissue in addition to other risk factors. If you have a healthcare provider who ordered/prescribed your screening mammogram: Please call [phone] or EXT: [phone] to schedule an appointment for your additional imaging (if you have not already done so). If you DO NOT have a healthcare provider (ie you did not have an order/prescription for your screening mammogram): Please call to schedule an appointment for your additional imaging (if you have not already done so). You must have an order/prescription from your physician when calling to schedule your appointment. If your order/prescription is not electronic, you must bring the hard copy with you on the day of your exam to avoid delays. Your imaging studies and reports are kept on file at [facility] as part of your permanent medical record, and are available for your continuing care. Thank you for allowing us to help in meeting your health care needs. Sincerely, Dr. Hines Interpreting Radiologist [facility] (Additional imaging) [facility] 07-28-2023 Miscellaneous Notes July 28, 2023 PID: [id number] Alberto Rodriguez [address] [place] [id number] Dear Ms. Rodriguez, Your recent breast imaging exam on 07/27/2023 showed a possible finding that requires additional imaging studies for a complete evaluation. Most such findings are probably benign (not cancer). Your mammogram demonstrates that you have dense breast tissue, which could hide abnormalities. Dense breast tissue, in and of itself, is a relatively common condition. Therefore, this information is not provided to cause undue concern; rather, it is to raise your awareness and promote discussion with your health care provider regarding the presence of dense breast tissue in addition to other risk factors. If you have a healthcare provider who ordered/prescribed your screening mammogram: Please call [phone] or EXT: [phone] to schedule an appointment for your additional imaging (if you have not already done so). If you DO NOT have a healthcare provider (ie you did not have an order/prescription for your screening mammogram): Please call to schedule an appointment for your additional imaging (if you have not already done so). You must have an order/prescription from your physician when calling to schedule your appointment. If your order/prescription is not electronic, you must bring the hard copy with you on the day of your exam to avoid delays. Your imaging studies and reports are kept on file at [facility] as part of your permanent medical record, and are available for your continuing care. Thank you for allowing us to help in meeting your health care needs. Sincerely, Dr. Hines Interpreting Radiologist [facility] (Additional imaging) documented in this encounter [facility] 07-27-2023 History of Present illness Narrative Radiology Service Progress Note PATIENT NAME: Alberto Rodriguez DATE OF SERVICE: July 27, 2023 TIME: 12:56 PM PATIENT IDENTITY VERIFICATION COMPLETED USING TWO (2) IDENTIFIERS: Name and Date of confirmed by patient verbally. FALL SCREENING: Has the patient had 2 falls in the last year or 1 fall with injury or currently using an Ambulatory Assistive Device (Walker, Cane, Wheelchair, Crutches, etc.)? No PATIENT GENDER DATA: Female. status: : No status: NO. PATIENT RELEVANT IMPLANT DATA REVIEWED: Not Applicable PATIENT PRESENTS WITH AN IMPLANTABLE OR ATTACHED INTELLIGENCE OPERATIONS SPECIALIST: No RADIOLOGY DEPARTMENT: Mammography PERIPHERAL IV DATA: Not applicable SIGNED BY: Kota Allan Xochitl (So-Shee) [employer] Kevin July 27, 2023 12:56 PM documented in this encounter [facility] 07-27-2023 History of Present illness Narrative Radiology Service Progress Note PATIENT NAME: Alberto Rodriguez DATE OF SERVICE: July 27, 2023 TIME: 12:21 PM PATIENT IDENTITY VERIFICATION COMPLETED USING TWO (2) IDENTIFIERS: Name and Date of confirmed by patient verbally. FALL SCREENING: Has the patient had 2 falls in the last year or 1 fall with injury or currently using an Ambulatory Assistive Device (Walker, Cane, Wheelchair, Crutches, etc.)? No PATIENT GENDER DATA: Female. status: : No status: NO. PATIENT RELEVANT IMPLANT DATA REVIEWED: Not Applicable PATIENT PRESENTS WITH AN IMPLANTABLE OR ATTACHED INTELLIGENCE OPERATIONS SPECIALIST: No RADIOLOGY DEPARTMENT: Bone Density PERIPHERAL IV DATA: Not applicable SIGNED BY: RT Robert(R) July 27, 2023 12:21 PM documented in this encounter [facility] 07-21-2023 Telephone encounter Note Patient has been identified by name and date of : Yes, Provider Ganta Date 07-21-23 Time 11:41 am Patient phones for refill(s): Requested Prescriptions Pending Prescriptions Disp Refills gabapentin (NEURONTIN) 100 mg capsule 90 capsule 1 Sig: Take 1 capsule by mouth daily at bedtime for 180 days. Date of last office visit in primary care: 07/11/2023 Date of next office visit in primary care: 01/09/2024 Please advise. Thank you. Eddie Fuentes RN. [facility] 07-21-2023 Miscellaneous Notes Patient has been identified by name and date of : Yes, Provider Ganta Date 07-21-23 Time 11:41 am Patient phones for refill(s): Requested Prescriptions Pending Prescriptions Disp Refills gabapentin (NEURONTIN) 100 mg capsule 90 capsule 1 Sig: Take 1 capsule by mouth daily at bedtime for 180 days. Date of last office visit in primary care: 07/11/2023 Date of next office visit in primary care: 01/09/2024 Please advise. Thank you. Eddie Fuentes RN. documented in this encounter [facility] 07-11-2023 Instructions Angélica Pulido APRN.FUNCTIONAL ARCHITECT - 07/11/2023 10:57 AM EDT BONE MINERAL DENSITY PATIENT INSTRUCTIONS ======= Bone mineral density testing measures the amount of calcium in certain parts of your bones. This information determines how strong your bones are. The test is used to detect osteoporosis, a disease in which the bone's mineral content and density are low, increasing a person's risk of fractures. The lumbar spine (lower back) and the hip are the skeletal sites usually examined. For the test, remember that: 1. You cannot take this test if you are . 2. Eat a normal diet on the day of the test. 3. Take your medications as you normally would. 4. DO NOT take calcium supplements (such as Tums) for 24 hours before the test. 5. On the day of the test, leave valuables (jewelry or credit cards) at home. 6. The test should be performed prior to oral, rectal or IV contrast studies, or at least 7 days after any of these studies. For the test, you may be asked to wear a hospital gown. You will lie on your back, on a padded table, in a comfortable position. Generally, you can resume your usual activities immediately. documented in this encounter [facility] 07-11-2023 History of Present illness Narrative SUBJECTIVE: Advance Directive Discussion due on 03/27/2023 Behavioral Health Screening Never done HPI Alberto Rodriguez is a 87 year old female. PMH significant for ACTIVE PROBLEM LIST Pain in Limb Iron Deficiency Anemia Pure Hypercholesterolemia Anxiety State Disorder of Bone and Cartilage Lipoma of Other Skin and Subcutaneous Tissue Esophageal Reflux PAIN ABDOMEN( Right Upper Quadrant) GASTRITIS ANTRAL( W/O Hemorrhage) Acute Gastritis Without Mention of Hemorrhage CHOLECYSTITIS SEE ALSO GALLBLADDER CHRONIC MULTINODULAR GOITER (NONTOXIC) Phn (Postherpetic Neuralgia) Pinched Nerve in Neck Hot Flashes Essential Hypertension Pain of Left Hip Joint PCP: Ramandeep Alvarez MD Presents for routine follow-up visit. Notes she is in her usual state of health. 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 She notes occasional headache. Notes recently took an additional losartan for headache which seem to help. Did not check blood pressure prior to this. Usually uses Aleve for headache. She notes ankle swelling which occurs occasionally. Typically when on her feet for a long period of time, resolves overnight with elevation. Does wear compression socks or stockings most of the time which does help. HTN: Without report of headache, chest pain, palpitations, dyspnea, peripheral edema, orthopnea, fatigue, or PND. Last 14 Encounter BP Readings: Date: BP: 01/05/2023 123/61 09/30/2022 112/62 07/19/2022 108/64 07/08/2022 120/68 04/14/2022 118/72 12/21/2021 126/66 11/30/2021 114/70 06/18/2021 114/56 06/04/2020 120/80 03/04/2020 118/64 11/06/2019 112/60 03/25/2019 130/62 12/24/2018 134/70 09/21/2018 106/60 Hyperlipidemia. Ms. Rodriguez reports doing well on current therapy. Her most recent lipid panels are: Cholesterol, Total (mg/dL) Date Value 01/05/2023 191 12/21/2021 203 12/12/2019 198 04/19/2018 231 HDL Cholesterol (mg/dL) Date Value 01/05/2023 77 12/21/2021 66 12/12/2019 73 04/19/2018 74 LDL Cholesterol (mg/dL) Date Value 01/05/2023 96 12/21/2021 113 12/12/2019 98 04/19/2018 137 Triglyceride (mg/dL) Date Value 01/05/2023 89 12/21/2021 122 12/12/2019 133 04/19/2018 100 GERD: controlled, no current complaints Anxiety: controlled. PHN: notes much better, help with medication but persists Review of Systems Constitutional: Negative. Cardiovascular: Positive for leg swelling (minor ankle). Musculoskeletal: Positive for arthralgias and back pain. Objective BP 108/58 Pulse 77 Resp 16 Wt 63 kg (139 lb) BMI 26.26 kg/m Physical Exam Vitals and nursing note reviewed. Constitutional: Appearance: Normal appearance. HENT: Head: Normocephalic and atraumatic. Eyes: Conjunctiva/sclera: Conjunctivae normal. Neck: Thyroid: No thyromegaly. Vascular: Normal carotid pulses. No JVD. Cardiovascular: Rate and Rhythm: Normal rate and regular rhythm. Pulses: Carotid pulses are 2+ on the right side and 2+ on the left side. Radial pulses are 2+ on the right side and 2+ on the left side. Heart sounds: Normal heart sounds. Pulmonary: Effort: Pulmonary effort is normal. Breath sounds: Normal breath sounds. Abdominal: General: Bowel sounds are normal. Palpations: Abdomen is soft. Skin: General: Skin is warm and dry. Neurological: General: No focal deficit present. Mental Status: She is alert and oriented to person, place, and time. ALLERGIES Allergen Reactions Vicodin [Hydrocodon* Intolerance Medication losartan (COZAAR) 25 mg tablet Take 1 tablet by mouth once daily. gabapentin (NEURONTIN) 100 mg capsule Take 1 capsule by mouth daily at bedtime for 180 days. potassium chloride (K-TAB) 10 mEq tablet Take 1 tablet by mouth daily with breakfast. On days she takes lasix furosemide (LASIX) 20 mg tablet take 1 tablet by mouth every other day amLODIPine (NORVASC) 2.5 mg tablet Take 1 tablet by mouth once daily. >Zippered Compression Knee High 30-40 mm custom CUSTOM MEASURE FOR KNEE HIGH HO COMPRESSION STOCKINGS, 30-40 MM, WITH ZIPPERS PLEASE. IF UNABLE, PLEASE REFER TO CHUNG AT [facility]. DX: EDEMA multivitamin tablet Take 1 tablet by mouth once daily. Aspirin 81 mg Tab Take 81 mg by mouth once daily. cholecalciferol (VITAMIN D3) 50 mcg (2,000 unit) tablet Take by mouth once daily. CALCIUM 500 MG TAB Take 1500mg daily when she remebers naproxen sodium(ALEVE 220 MG TAB) Take one(1) tablet twice daily.as necessary estradiol (ESTRACE) 1 mg tablet Take 1 tablet by mouth once daily. Begin with half a pill, if symptoms dont get better take 1 pill nortriptyline (PAMELOR) 50 mg capsule TAKE ONE CAPSULE BY MOUTH EVERY DAY AT BEDTIME pravastatin (PRAVACHOL) 40 mg tablet Take 1 tablet by mouth daily at bedtime. JUBLIA 10 % gunjan (Patient not taking: Reported on 01/05/2023) PAST MEDICAL HISTORY Diagnosis Date Anxiety state, unspecified Disorder of bone and cartilage, unspecified 05/02/2005 Iron deficiency anemias Lipoma of other skin and subcutaneous tissue 05/02/2005 Pain in limb Pneumonia 2010 PURE HYPERCHOLESTEROLEM Pure hypercholesterolemia Urinary tract infection, site not specified Social History Tobacco Use Smoking status: Never Smokeless tobacco: Never Substance Use Topics Alcohol use: Yes Comment: occasionally Drug use: No Latest Ref Rng 12/24/2018 12/12/2019 07/06/2021 07/09/202112/21/2021 01/05/2023 WBC 3.70 - 11.00 k/uL 5.07 6.43 7.70 RBC 3.90 - 5.20 m/uL 4.41 4.70 4.42 Hemoglobin 11.5 - 15.5 g/dL 11.9 12.4 11.5 Hematocrit 36.0 - 46.0 % 38.5 40.9 37.4 MCV 80.0 - 100.0 fL 87.3 87.0 84.6 MCH 26.0 - 34.0 pg 27.0 26.4 26.0 MCHC 30.5 - 36.0 g/dL 30.9 30.3 (L) 30.7 RDW-CV 11.5 - 15.0 % 14.0 15.7 (H) 16.1 (H) Platelet Count 150 - 400 k/uL 291 319 379 MPV 9.0 - 12.7 fL 10.3 9.5 9.3 Neut% % 57.3 62.9 64.1 Abs Neut (ANC) 1.45 - 7.50 k/uL 2.91 4.02 4.93 Lymph% % 28.8 25.0 23.2 Abs Lymph 1.00 - 4.00 k/uL 1.46 1.61 1.79 [place]% % 10.5 8.1 9.2 Abs [place] <0.87 k/uL 0.53 0.52 0.71 Eosin% % 2.0 2.8 2.1 Abs Eosin <0.46 k/uL 0.10 0.18 0.16 Baso% % 1.4 1.2 0.9 Abs Baso <0.11 k/uL 0.07 0.08 0.07 Immature Gran % % 0.5 IMMATURE GRANS (ABS) <0.10 k/uL 0.04 NRBC /100 WBC 0.0 Absolute nRBC <0.01 k/uL <0.01 <0.01 <0.01 DTYPE Auto Nucleated Reds 0 /100 WBC 0.0 0.0 Diff Type Auto Diff Auto Diff Protein, Total 6.3 - 8.0 g/dL 7.2 7.5 7.2 6.8 Albumin 3.9 - 4.9 g/dL 4.0 4.3 4.1 4.0 Calcium 8.5 - 10.2 mg/dL 9.3 9.6 9.6 9.5 Bilirubin, Total 0.2 - 1.3 mg/dL 0.2 0.3 0.2 0.2 Alkaline Phosphatase 34 - 123 U/L 67 82 100 85 AST 13 - 35 U/L 26 29 19 25 Glucose 74 - 99 mg/dL 98 97 91 75 BUN 7 - 21 mg/dL 17 13 18 21 Creatinine 0.58 - 0.96 mg/dL 0.84 0.87 0.89 0.91 1.01 (H) Sodium 136 - 144 mmol/L 141 139 139 140 Potassium 3.7 - 5.1 mmol/L 4.6 4.2 4.6 4.8 Chloride 97 - 105 mmol/L 103 101 101 102 CO2 22 - 30 mmol/L 24 30 28 26 Anion Gap 9 - 18 mmol/L 14 8 (L) 10 12 ALT 7 - 38 U/L 15 19 13 12 eGFR- >60 >60 eGFR-All Other Races . >60 >60 eGFR >=60 mL/min/1.73m 64 62 55 (L) Cholesterol, Total <200 mg/dL 198 203 (H) 191 Triglyceride <150 mg/dL 133 122 89 HDL Cholesterol >39 mg/dL 73 66 77 LDL Cholesterol <100 mg/dL 98 113 (H) 96 Non HDL Cholesterol <130 mg/dL 125 137 (H) 114 Fasting Time hrs 10 12 12 VLDL Cholesterol <30 mg/dL 27 24 18 TC:HDL Ratio <5.10 2.71 3.08 2.48 LDL:HDL Ratio <2.54 1.34 1.71 1.25 d Dimer <500 ng/mL FEU 700 (H) D Dimer Age-related Cutoff ng/mL FEU 830 Vitamin D 25 Hydroxy 31.0 - 80.0 ng/mL 34.8 ASSESSMENT/PLAN: 1. Iron deficiency anemia, unspecified iron deficiency anemia type - ICD9: 280.9, ICD10: D50.9 (primary diagnosis) - COMPLETE BLOOD COUNT AND DIFFERENTIAL 2. Pure hypercholesterolemia - ICD9: 272.0, ICD10: E78.00 Recommend a plant based diet such as Mediterranean diet with plenty of vegetables, fruits,whole grains, fish, chicken, turkey or plant proteins and routine exercise such as walking Continue statin unchanged - COMPREHENSIVE METABOLIC PANEL - LIPID PANEL BASIC - PRAVASTATIN 40 MG TABLET 3. Gastroesophageal reflux disease, unspecified whether esophagitis present - ICD9: 530.81, ICD10: K21.9 Stable, currently controlled, continue current treatment unchanged, continue to monitor. 4. Essential hypertension - ICD9: 401.9, ICD10: I10 controlled If she notes headache attributed to blood pressure recommend checking blood pressure at home. If SBP is greater than 150 may take an additional 25 mg losartan. - Continue current medications - Encouraged sodium restriction, DASH or Mediterranean diet - Recommend regular aerobic exercise - COMPLETE BLOOD COUNT AND DIFFERENTIAL - COMPREHENSIVE METABOLIC PANEL - LIPID PANEL BASIC - THYROID STIMULATING HORMONE 5. Encounter for screening for diabetes mellitus - ICD9: V77.1, ICD10: Z13.1 - HEMOGLOBIN A1C 6. Hot flashes - ICD9: 782.62, ICD10: R23.2 Stable, currently controlled, continue current treatment unchanged, continue to monitor. - ESTRADIOL 1 MG TABLET 7. Insomnia, unspecified type - ICD9: 780.52, ICD10: G47.00 Stable, currently controlled, continue current treatment unchanged, continue to monitor. - NORTRIPTYLINE 50 MG CAPSULE 8. Encounter for screening for osteoporosis - ICD9: V82.81, ICD10: Z13.820 9. Asymptomatic postmenopausal status - ICD9: V49.81, ICD10: Z78.0 - DXA-AXIAL SKELETON - BD DXA TRABECULAR BONE SCORE (TBS) - VITAMIN D 25 HYDROXY schedule mammogram 6 mo follow up MD Angélica Fowler APRN.FUNCTIONAL ARCHITECT Medical Decision Making: Problems: Moderate: 2+ stable chronic illnesses Risk: Moderate: Drug management Medical Decision Making Level: 4 - Moderate , documented in this encounter [facility] 02-07-2023 History of Present illness Narrative Alberto Rodriguez is identified through a medication adherence outreach initiative based on pharmacy claims data from [employer] (insurer) for Statin medication(s). Patient is reviewed 02/07/23 due to medication adherence concerns with the following medications (name, strength, sig): Pravastatin 40 mg 1 tablet every day . Per data/report, last fill date and days supply: Due 02/16/2023 Per reconcile dispense, last fill date and days supply: 11/18/2022 for 90 days Per call to pharmacy, last picked up date and days supply: NA Contacted patient: No answer; left generic VM Outcome of review/outreach: (choose outcome source and status) - LVM for patient Micaela Santizo Jhonny Pharm-T documented in this encounter [facility] 01-13-2023 Miscellaneous Notes Patient notified of results. Patient verbalizes understanding. Reny Brunson, RN Third attempt to reach patient by phone with no answer. Left additional message on VM to return call to office to discuss results. Patient is not [facility] active and therefore unable to send message. ANGIE Gutierrez Second attempt to reach patient by phone with no answer. Line continues to ring with no option to leave VM. Please try again later. ANGIE Gutierrez Attempted to contact patient but no answer and no voice mail. Please let her know her labs overall in acceptable range. Component Latest Ref Rng & Units 01/05/2023 Protein, Total 6.3 - 8.0 g/dL 6.8 Albumin 3.9 - 4.9 g/dL 4.0 Calcium 8.5 - 10.2 mg/dL 9.5 Bilirubin, Total 0.2 - 1.3 mg/dL 0.2 Alkaline Phosphatase 34 - 123 U/L 85 AST 13 - 35 U/L 25 ALT 7 - 38 U/L 12 Glucose 74 - 99 mg/dL 75 BUN 7 - 21 mg/dL 21 Creatinine 0.58 - 0.96 mg/dL 1.01 (H) Sodium 136 - 144 mmol/L 140 Potassium 3.7 - 5.1 mmol/L 4.8 Chloride 97 - 105 mmol/L 102 CO2 22 - 30 mmol/L 26 Anion Gap 9 - 18 mmol/L 12 eGFR >=60 mL/min/1.73m 55 (L) Cholesterol, Total <200 mg/dL 191 Triglyceride <150 mg/dL 89 HDL Cholesterol >39 mg/dL 77 Non HDL Cholesterol <130 mg/dL 114 Fasting Time hrs 12 VLDL Cholesterol <30 mg/dL 18 TC:HDL Ratio <5.10 2.48 LDL Cholesterol <100 mg/dL 96 LDL:HDL Ratio <2.54 1.25 documented in this encounter [facility] 01-05-2023 Instructions Angélica Pulido APRN.CNS - 01/05/2023 11:26 AM EDT Okay to take Lasix with potassium for ankle puffiness on days not regularly scheduled to take it if needed. Let us know if needing to do this often, can increase your prescription to daily Consider getting the RSV vaccine either at the pharmacy or in clinic. Let us know if wanting to do anything additional for hip and back pain. documented in this encounter [facility] 01-05-2023 History of Present illness Narrative SUBJECTIVE: There are no preventive care reminders to display for this patient. HPI Alberto Rodriguez is a 87 year old female. PMH significant for ACTIVE PROBLEM LIST Pain in Limb Iron Deficiency Anemia Pure Hypercholesterolemia Anxiety State Disorder of Bone and Cartilage Lipoma of Other Skin and Subcutaneous Tissue Esophageal Reflux PAIN ABDOMEN( Right Upper Quadrant) GASTRITIS ANTRAL( W/O Hemorrhage) Acute Gastritis Without Mention of Hemorrhage CHOLECYSTITIS SEE ALSO GALLBLADDER CHRONIC MULTINODULAR GOITER (NONTOXIC) Phn (Postherpetic Neuralgia) Pinched Nerve in Neck Hot Flashes Essential Hypertension Pain of Left Hip Joint PCP: Ramandeep Alvarez MD HPI excerpted from previous visit: Presents with report of left hip and leg pain consistent with previous shingles episode, 10 years ago per chart review. Similar complaint thought to be arthritis at her last visit 07/08/2022 with Breanna Ortiz CNP. She reports pain in the area of previous shingles outbreak. She does not have a rash. She reports pain in the area previously before her rash and is concerned this is recurring. She has continued to have pain in the area of her previous shingles. She notes hip and back pain is improved with physical therapy and HEP. Defers doing anything additional at this time. She notes ankle swelling which occurs occasionally. Typically when on her feet for a long period of time, resolves overnight with elevation. Does wear compression socks or stockings most of the time. HTN: Without report of headache, chest pain, palpitations, dyspnea, peripheral edema, orthopnea, fatigue, or PND. Last 3 Encounter BP Readings: Date: BP: 09/30/2022 112/62 07/19/2022 108/64 07/08/2022 120/68 Hyperlipidemia. Ms. Rodriguez reports doing well on current therapy. Her most recent lipid panels are: Cholesterol, Total (mg/dL) Date Value 12/21/2021 203 12/12/2019 198 04/19/2018 231 HDL Cholesterol (mg/dL) Date Value 12/21/2021 66 12/12/2019 73 04/19/2018 74 LDL Cholesterol (mg/dL) Date Value 12/21/2021 113 12/12/2019 98 04/19/2018 137 Triglyceride (mg/dL) Date Value 12/21/2021 122 12/12/2019 133 04/19/2018 100 GERD: controlled, no current complaints Anxiety: controlled. PHN: notes much better Review of Systems Constitutional: Negative. Cardiovascular: Positive for leg swelling (minor ankle). Musculoskeletal: Positive for arthralgias and back pain. Objective BP 123/61 Pulse 76 Resp 16 Wt 64.9 kg (143 lb) BMI 27.02 kg/m Physical Exam Vitals and nursing note reviewed. Constitutional: Appearance: Normal appearance. HENT: Head: Normocephalic and atraumatic. Eyes: Conjunctiva/sclera: Conjunctivae normal. Cardiovascular: Rate and Rhythm: Normal rate. Pulmonary: Effort: Pulmonary effort is normal. Abdominal: General: Bowel sounds are normal. Palpations: Abdomen is soft. Skin: General: Skin is warm and dry. Neurological: General: No focal deficit present. Mental Status: She is alert and oriented to person, place, and time. ALLERGIES Allergen Reactions Vicodin [Hydrocodon* Intolerance Medication >Zippered Compression Knee High 30-40 mm custom CUSTOM MEASURE FOR KNEE HIGH HO COMPRESSION STOCKINGS, 30-40 MM, WITH ZIPPERS PLEASE. IF UNABLE, PLEASE REFER TO CHUNG AT [facility]. DX: EDEMA amLODIPine (NORVASC) 2.5 mg tablet Take 1 tablet by mouth once daily. Aspirin 81 mg Tab Take 81 mg by mouth once daily. CALCIUM 500 MG TAB Take 1500mg daily when she remebers cholecalciferol (VITAMIN D3) 50 mcg (2,000 unit) tablet Take by mouth once daily. estradiol (ESTRACE) 1 mg tablet Take 1 tablet by mouth once daily. Begin with half a pill, if symptoms dont get better take 1 pill furosemide (LASIX) 20 mg tablet take 1 tablet by mouth every other day gabapentin (NEURONTIN) 100 mg capsule Take 1 capsule by mouth daily at bedtime for 180 days. JUBLIA 10 % gunjan (Patient not taking: Reported on 01/05/2023) losartan (COZAAR) 25 mg tablet Take 1 tablet by mouth once daily. multivitamin tablet Take 1 tablet by mouth once daily. naproxen sodium(ALEVE 220 MG TAB) Take one(1) tablet twice daily.as necessary nortriptyline (PAMELOR) 50 mg capsule TAKE ONE CAPSULE BY MOUTH EVERY DAY AT BEDTIME potassium chloride (K-TAB) 10 mEq tablet Take 1 tablet by mouth daily with breakfast. On days she takes lasix pravastatin (PRAVACHOL) 40 mg tablet Take 1 tablet by mouth daily at bedtime. PAST MEDICAL HISTORY Diagnosis Date Anxiety state, unspecified Disorder of bone and cartilage, unspecified 05/02/2005 Iron deficiency anemias Lipoma of other skin and subcutaneous tissue 05/02/2005 Pain in limb Pneumonia 2011 PURE HYPERCHOLESTEROLEM Pure hypercholesterolemia Urinary tract infection, site not specified Social History Tobacco Use Smoking status: Never Smokeless tobacco: Never Substance Use Topics Alcohol use: Yes Comment: occasionally Drug use: No Component Latest Ref Rng & Units 04/19/2018 09/21/2018 12/24/2018 12/12/2019 07/06/2021 07/09/2021 12/21/2021 WBC 3.70 - 11.00 k/uL 5.07 6.43 7.70 RBC 3.90 - 5.20 m/uL 4.41 4.70 4.42 Hemoglobin 11.5 - 15.5 g/dL 11.9 12.4 11.5 Hematocrit 36.0 - 46.0 % 38.5 40.9 37.4 MCV 80.0 - 100.0 fL 87.3 87.0 84.6 MCH 26.0 - 34.0 pg 27.0 26.4 26.0 MCHC 30.5 - 36.0 g/dL 30.9 30.3 (L) 30.7 RDW-CV 11.5 - 15.0 % 14.0 15.7 (H) 16.1 (H) Platelet Count 150 - 400 k/uL 291 319 379 MPV 9.0 - 12.7 fL 10.3 9.5 9.3 Neut% % 57.3 62.9 64.1 Abs Neut (ANC) 1.45 - 7.50 k/uL 2.91 4.02 4.93 Lymph% % 28.8 25.0 23.2 Abs Lymph 1.00 - 4.00 k/uL 1.46 1.61 1.79 [place]% % 10.5 8.1 9.2 Abs [place] <0.87 k/uL 0.53 0.52 0.71 Eosin% % 2.0 2.8 2.1 Abs Eosin <0.46 k/uL 0.10 0.18 0.16 Baso% % 1.4 1.2 0.9 Abs Baso <0.11 k/uL 0.07 0.08 0.07 Immature Gran % % 0.5 IMMATURE GRANS (ABS) <0.10 k/uL 0.04 NRBC /100 WBC 0.0 Absolute nRBC <0.01 k/uL <0.01 <0.01 <0.01 DTYPE Auto Nucleated Reds 0 /100 WBC 0.0 0.0 Diff Type Auto Diff Auto Diff Protein, Total 6.3 - 8.0 g/dL 7.2 7.5 7.2 Albumin 3.9 - 4.9 g/dL 4.0 4.3 4.1 Calcium 8.5 - 10.2 mg/dL 9.3 9.6 9.6 Bilirubin, Total 0.2 - 1.3 mg/dL 0.2 0.3 0.2 Alkaline Phosphatase 34 - 123 U/L 67 82 100 AST 13 - 35 U/L 26 29 19 Glucose 74 - 99 mg/dL 98 97 91 BUN 7 - 21 mg/dL 17 13 18 Creatinine 0.58 - 0.96 mg/dL 0.84 0.87 0.89 0.91 Sodium 136 - 144 mmol/L 141 139 139 Potassium 3.7 - 5.1 mmol/L 4.6 4.2 4.6 Chloride 97 - 105 mmol/L 103 101 101 CO2 22 - 30 mmol/L 24 30 28 Anion Gap 9 - 18 mmol/L 14 8 (L) 10 ALT 7 - 38 U/L 15 19 13 eGFR- >60 >60 eGFR-All Other Races . >60 >60 eGFR >=60 mL/min/1.73m 64 62 Cholesterol, Total <200 mg/dL 231 (H) 198 203 (H) Triglyceride <150 mg/dL 100 133 122 HDL Cholesterol >39 mg/dL 74 73 66 LDL Cholesterol <100 mg/dL 137 (H) 98 113 (H) Non HDL Cholesterol <130 mg/dL 157 (H) 125 137 (H) Fasting Time hrs 17 10 12 VLDL Cholesterol <30 mg/dL 20 27 24 TC:HDL Ratio <5.10 3.12 2.71 3.08 LDL:HDL Ratio <2.54 1.85 1.34 1.71 d Dimer <500 ng/mL FEU 580 (H) 700 (H) D Dimer Age-related Cutoff ng/mL FEU 830 NT Pro BNP <450 pg/mL 320 Vitamin D 25 Hydroxy 31.0 - 80.0 ng/mL 34.8 ASSESSMENT/PLAN: 1. 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 History of shingles - ICD9: V12.09, ICD10: Z86.19 She reports pain in the site of previous shingles, notes this occurred previously pain before the rash. Will go ahead and treat for shingles. She will let us know if not feeling improved with treatment. - VALACYCLOVIR 1 GRAM TABLET 3. Gastroesophageal reflux disease, unspecified whether esophagitis present - ICD9: 530.81, ICD10: K21.9 - COMP METABOLIC PANEL - CBC + DIFF 4. Pure hypercholesterolemia - ICD9: 272.0, ICD10: E78.00 - COMP METABOLIC PANEL - LIPID PANEL BASIC 3 mo follow up Angélica Pulido APRN.CNS with labs. Angélica Pulido APRN.CNS Medical Decision Making: Problems: Moderate: 2+ stable chronic illnesses Risk: Moderate: Drug management Medical Decision Making Level: 4 - Moderate , documented in this encounter [facility] 09-30-2022 Instructions Angélica Pulido APRN.CNS - 09/30/2022 1:07 PM EDT Check labs before your next visit in 3 months documented in this encounter [facility] 09-30-2022 History of Present illness Narrative SUBJECTIVE: ADVANCE DIRECTIVE DISCUSSION due on 03/27/2022 DEPRESSION ASSESSMENT due on 03/27/2022 HPI Alberto Rodriguez is a 86 year old female. PMH significant for ACTIVE PROBLEM LIST Pain in Limb Iron Deficiency Anemia Pure Hypercholesterolemia Anxiety State Disorder of Bone and Cartilage Lipoma of Other Skin and Subcutaneous Tissue Esophageal Reflux PAIN ABDOMEN( Right Upper Quadrant) GASTRITIS ANTRAL( W/O Hemorrhage) Acute Gastritis Without Mention of Hemorrhage CHOLECYSTITIS SEE ALSO GALLBLADDER CHRONIC MULTINODULAR GOITER (NONTOXIC) Phn (Postherpetic Neuralgia) Pinched Nerve in Neck Hot Flashes Essential Hypertension Pain of Left Hip Joint PCP: Ramandeep Alvarez MD Presents with report of left hip and leg pain consistent with previous shingles episode, 10 years ago per chart review. Similar complaint thought to be arthritis at her last visit 07/08/2022 with Breanna Ortiz CNP. She reports pain in the area of previous shingles outbreak. She does not have a rash. She reports pain in the area previously before her rash and is concerned this is recurring. She has continued to have pain in the area of her previous shingles. Review of Systems Constitutional: Negative. Objective BP 112/62 Pulse 76 Resp 16 Wt 63.5 kg (140 lb) BMI 26.45 kg/m Physical Exam Vitals and nursing note reviewed. Constitutional: Appearance: Normal appearance. HENT: Head: Normocephalic and atraumatic. Eyes: Conjunctiva/sclera: Conjunctivae normal. Cardiovascular: Rate and Rhythm: Normal rate. Pulmonary: Effort: Pulmonary effort is normal. Abdominal: General: Bowel sounds are normal. Palpations: Abdomen is soft. Skin: General: Skin is warm and dry. Comments: skin anterior left thigh TTP, no rash Neurological: General: No focal deficit present. Mental Status: She is alert and oriented to person, place, and time. ALLERGIES Allergen Reactions Vicodin [Hydrocodon* Intolerance furosemide (LASIX) 20 mg tablet take 1 tablet by mouth every other day amLODIPine (NORVASC) 2.5 mg tablet Take 1 tablet by mouth once daily. nortriptyline (PAMELOR) 50 mg capsule TAKE ONE CAPSULE BY MOUTH EVERY DAY AT BEDTIME estradiol (ESTRACE) 1 mg tablet Take 1 tablet by mouth once daily. Begin with half a pill, if symptoms dont get better take 1 pill pravastatin (PRAVACHOL) 40 mg tablet Take 1 tablet by mouth daily at bedtime. Ciclopirox (LOPROX) 8 % solution APPLY TO NAILS DAILY AND REMOVE WITH ALCOHOL WEEKLY JUBLIA 10 % gunjan potassium chloride (K-TAB) 10 mEq tablet Take 1 tablet by mouth daily with breakfast. On days she takes lasix losartan (COZAAR) 25 mg tablet take 1 tablet by mouth once daily gabapentin (NEURONTIN) 100 mg capsule Take 1 capsule by mouth daily at bedtime. >Zippered Compression Knee High 30-40 mm custom CUSTOM MEASURE FOR KNEE HIGH HO COMPRESSION STOCKINGS, 30-40 MM, WITH ZIPPERS PLEASE. IF UNABLE, PLEASE REFER TO CHUNG AT [facility]. DX: EDEMA multivitamin tablet Take 1 tablet by mouth once daily. Aspirin 81 mg Tab Take 81 mg by mouth once daily. cholecalciferol (VITAMIN D3) 50 mcg (2,000 unit) tablet Take by mouth once daily. CALCIUM 500 MG TAB Take 1500mg daily when she remebers naproxen sodium(ALEVE 220 MG TAB) Take one(1) tablet twice daily.as necessary valACYclovir (VALTREX) 1 gram Take 1 tablet by mouth three times daily for 7 days. Take with food PAST MEDICAL HISTORY Diagnosis Date Anxiety state, unspecified Disorder of bone and cartilage, unspecified 05/02/2005 Iron deficiency anemias Lipoma of other skin and subcutaneous tissue 05/02/2005 Pain in limb Pneumonia 2010 PURE HYPERCHOLESTEROLEM Pure hypercholesterolemia Urinary tract infection, site not specified Social History Tobacco Use Smoking status: Never Smokeless tobacco: Never Substance Use Topics Alcohol use: Yes Comment: occasionally Drug use: No ASSESSMENT/PLAN: 1. 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 History of shingles - ICD9: V12.09, ICD10: Z86.19 She reports pain in the site of previous shingles, notes this occurred previously pain before the rash. Will go ahead and treat for shingles. She will let us know if not feeling improved with treatment. - VALACYCLOVIR 1 GRAM TABLET 3. Gastroesophageal reflux disease, unspecified whether esophagitis present - ICD9: 530.81, ICD10: K21.9 - COMP METABOLIC PANEL - CBC + DIFF 4. Pure hypercholesterolemia - ICD9: 272.0, ICD10: E78.00 - COMP METABOLIC PANEL - LIPID PANEL BASIC 3 mo follow up Angélica Pulido APRN.CNS with labs. Angélica Pulido APRN.CNS Medical Decision Making: Problems: Low: Acute, uncomplicated illness or injury Data: Unique test(s) ordered: 3+ Risk: Moderate: Drug management Medical Decision Making Level: 4 - Moderate, documented in this encounter [facility] 09-30-2022 Miscellaneous Notes Patient has been identified by name and date of : No Patient phones for refill(s): Requested Prescriptions Pending Prescriptions Disp Refills furosemide (LASIX) 20 mg tablet [Pharmacy Med Name: FUROSEMIDE 20 MG TABLET] 45 tablet 3 Sig: take 1 tablet by mouth every other day Date of last office visit in primary care: 07/08/22 Last 2 Encounter Wt Readings: Date: Wt: 07/08/2022 63.5 kg (140 lb) 04/14/2022 62.1 kg (137 lb) Previous labs/tests for medication: Not applicable Please advise. Thank you. Rashmi Chandra LPN documented in this encounter [facility] 08-23-2022 Miscellaneous Notes Patient has been identified by name and date of : No Patient phones for refill(s): Requested Prescriptions Pending Prescriptions Disp Refills amLODIPine (NORVASC) 2.5 mg tablet 90 tablet 3 Sig: Take 1 tablet by mouth once daily. nortriptyline (PAMELOR) 50 mg capsule 90 capsule 3 Sig: TAKE ONE CAPSULE BY MOUTH EVERY DAY AT BEDTIME estradiol (ESTRACE) 1 mg tablet 90 tablet 3 Sig: Take 1 tablet by mouth once daily. Begin with half a pill, if symptoms dont get better take 1 pill pravastatin (PRAVACHOL) 40 mg tablet 90 tablet 3 Sig: Take 1 tablet by mouth daily at bedtime. Date of last office visit in primary care: 07/08/22 Last 2 Encounter Wt Readings: Date: Wt: 07/08/2022 63.5 kg (140 lb) 04/14/2022 62.1 kg (137 lb) Previous labs/tests for medication: Cholesterol: HDL Cholesterol (mg/dL) Date Value 12/21/2021 66 12/12/2019 73 LDL Cholesterol (mg/dL) Date Value 12/21/2021 113 12/12/2019 98 ALT (U/L) Date Value 12/21/2021 13 12/12/2019 19 Non HDL Cholesterol (mg/dL) Date Value 12/21/2021 137 12/12/2019 125 Blood Pressure: BUN (mg/dL) Date Value 12/21/2021 18 12/12/2019 13 Sodium (mmol/L) Date Value 12/21/2021 139 12/12/2019 139 Last 1 Encounter BP Readings: Date: BP: 07/19/2022 108/64 Please advise. Thank you. Rashmi Chandra LPN Patient has been identified by name and date of : Yes Requested Prescriptions Pending Prescriptions Disp Refills amLODIPine (NORVASC) 2.5 mg tablet 90 tablet 3 Sig: Take 1 tablet by mouth once daily. nortriptyline (PAMELOR) 50 mg capsule 90 capsule 3 Sig: TAKE ONE CAPSULE BY MOUTH EVERY DAY AT BEDTIME estradiol (ESTRACE) 1 mg tablet 90 tablet 3 Sig: Take 1 tablet by mouth once daily. Begin with half a pill, if symptoms dont get better take 1 pill pravastatin (PRAVACHOL) 40 mg tablet 90 tablet 3 Sig: Take 1 tablet by mouth daily at bedtime. RX INSTRUCTIONS: Patient aware RX will be sent to pharmacy. No need to notify patient. Patricia Sal documented in this encounter [facility] 08-02-2022 History of Present illness Narrative Episode Visit Count: 3 Therapist That Will Accept/Oversee The Plan Of Care: Nick Cooper PT Start of Care Date: 07/19/22 Onset Date: 05/21/22 Plan of Care Certification Date: 07/19/22 Next Certification Due Date: 08/23/22 Patient Identified by Name and Date of : Yes REHABILITATION AND SPORTS THERAPY PHYSICAL THERAPY TREATMENT NOTE ASSESSMENT: Alberto Rodriguez tolerated the session with fatigue, decreased symptoms, expected muscle soreness, and no issues. She demonstrated improvements in pain, exercise tolerance and functional mobility. The patient will continue to benefit from ongoing skilled physical therapy to progress toward set goals. PLAN FOR NEXT VISIT: Continue with postural stretching and strengthening therex with flexion directional preference. Add more strengthening in standing and sitting as pt tolerates. Consider more at Hoist machine. SUBJECTIVE: Patient Reason for Visit: Pt reports that overall she is significantly better with a noticeable decrease in pain. She reports compliance with HEP 2x day and occassionally 3x day. She reports that her only current functional limitation is getting out of the car. She reports that her L hip has improved significantly and intermittently R hip hurts. Pain: Pain Pain Level: 0 (R hip 4/10 currently) Pain Location: Buttocks - Left Description: Dull Frequency: Intermittent Post Treatment Pain Post Treatment Pain Level: No Change Post Treatment Pain Location: Buttocks - Left Post Treatment Symptoms: Pt denied any increase in pain throughout session but did report appreciating the exercise. OBJECTIVE MEASURES WITH LEVEL OF FUNCTION: TREATMENT: Therapeutic Exercise: 1: LE TOTEFit StepOne seat #9 x6 minutes without resistance (pt provided an update on her condition) 2: supine B SKTC 3x30 seconds each 3: supine DKTC 3x30 seconds. 4: supine LTR 2x10 5: supine isometric abdominal exercise via shoulder extension with 2 second hold 2x10 6: supine crunches in very small range 3x10 7: seated at side of plinth, pink t-band perturbations R, L and forward 3x15 each 8: stirring the pot at [facility] 1 plate x10 CW and x10 CCW facing both lateral directions 9: seated scapular retraction at Hoist machine 1 plate 2x10 10: seated pull downs at [facility], nidia overhead elbows extended throughout 1 plate 3x10 11: back extension machine 30# 3x10 Skilled Intervention: Patient was educated in proper exercise technique and purpose for exercises. Skilled judgment was provided in selection of appropriate interventions. Correct performance of therapeutic exercises was facilitated with verbal, visual, and tactile cuing. Patient education as noted. Billing Therapeutic Exercise Treatment Minutes: 40 Total Treatment Time Minutes (timed/untimed): 40 Nick Cooper PT documented in this encounter [facility] 07-27-2022 History of Present illness Narrative Episode Visit Count: 2 Therapist That Will Accept/Oversee The Plan Of Care: Nick Cooper PT Start of Care Date: 07/19/22 Onset Date: 05/21/22 Plan of Care Certification Date: 07/19/22 Next Certification Due Date: 08/23/22 Patient Identified by Name and Date of : Yes REHABILITATION AND SPORTS THERAPY PHYSICAL THERAPY TREATMENT NOTE ASSESSMENT: Alberto Rodriguez tolerated the session with decreased symptoms. She demonstrated improvements in pain, bed mobility and exercise tolerance. The patient will continue to benefit from ongoing skilled physical therapy to progress toward set goals. PLAN FOR NEXT VISIT: Continue with postural stretching and strengthening therex with flexion directional preference. Add more strengthenign as pt tolerates. SUBJECTIVE: Patient Reason for Visit: Pt reports that overall she is much better with noticeably less pain, less often. She reports that previously she had significant pain in the morning that made it difficult to get out of bed. She reports that recently she has been pain-free in the mornings. She is convinced that the HEP is helping to decrease her pain. She reports compliance wt HEP 3x day most days. Pain: Pain Pain Level: 4 Pain Location: Buttocks - Left Description: (better) Frequency: Intermittent (decreased frequency of pain despite minimal decrease in intensity) Post Treatment Pain Post Treatment Pain Level: 0 Post Treatment Pain Location: Buttocks - Left Post Treatment Pain Description: (better) Post Treatment Symptoms: Pt reported that with standing after therex session, her pain was abolished! OBJECTIVE MEASURES WITH LEVEL OF FUNCTION: TREATMENT: Therapeutic Exercise: 1: [employer] StepOne seat #9 x6 minutes without resistance (pt provided an update on her condition) 2: supine B SKTC 3x30 seconds each 3: supine DKTC 3x30 seconds. 4: *supine LTR 2x10 5: *supine isometric abdominal exercise via shoulder extension with 2 second hold 2x10 6: supine crunches in very small range 3x10 7: seated at side of plinth, pink t-band perturbations R, L and forward 3x15 each Skilled Intervention: Patient was educated in proper exercise technique and purpose for exercises. Reviewed and educated patient on additions/changes for home exercise program as above (*). Skilled judgment was provided in selection of appropriate interventions. Provided written instruction for home exercise program to facilitate proper performance and compliance. Correct performance of therapeutic exercises was facilitated with verbal, visual, and tactile cuing. Patient education as noted. Billing Therapeutic Exercise Treatment Minutes: 40 Total Treatment Time Minutes (timed/untimed): 40 Nick Cooper PT documented in this encounter [facility] 07-19-2022 History of Present illness Narrative Episode Visit Count: 1 Therapist That Will Accept/Oversee The Plan Of Care: Nick Cooper PT Start of Care Date: 07/19/22 Onset Date: 05/21/22 Plan of Care Certification Date: 07/19/22 Next Certification Due Date: 08/23/22 Patient Identified by Name and Date of : Yes REHABILITATION AND SPORTS THERAPY PHYSICAL THERAPY EVALUATION PLAN OF CARE: Assessment: Alberto Rodriguez presents with chief complaint of L posterior lateral hip pain and anterior lateral thigh pain that interferes with rising from a chair, cleaning (vacuuming). She presents with impairments in ADL's, overall function, range of motion, strength, symptom management, and tissue tenderness. PROMIS (Patient-Reported Outcomes Measurement Information System) scores were reviewed and physical function domain identified as a rehabilitation concern. Prognosis for therapy is Excellent due to: within-session changes, positive past response to therapy, good overall health status, current objective clinical presentation, good support system/ coping skills. She will benefit from skilled therapy services to meet the goals established for this plan of care as noted below. Classification Low Back Pain Subgroup Classification: Core stabilization subgroup: recommended visits 10. Core Stabilization Subgroup Classification based on: pain with transitional movements (pain with prolonged positions) Goals for Episode of Care: created on 07/19/22 through 08/23/22 Independent in home exercises. Patient will decrease pain to 0/10 with functional activities to allow patient to improve transfers and standing tolerance for ADLs. Restore pain-free lumbar ROM to WFL to allow for improved transfer tolerance. Stand / Walk without limitations, without pain/symptoms. Patient will be able to tolerate rising, outpatient phlebotomist and vacuuming without increased symptoms. Patient will increase strength of core/postural muscles to WFL to allow for improved position and activity tolerance. Patient Goals: decrease pain and stay active Planned Interventions, Frequency, and Duration: Current Frequency: 2x/week Duration: 5 weeks Total Number of Visits Planned: 10 Planned Treatment Interventions: Therapeutic exercise (16440), Neuromuscular re-education (10293), Manual therapy (53896), Therapeutic activities (30113), Self-prison management (45504), Patient/Family/Caregiver Education, Body Mechanics Training, General Conditioning PLAN FOR NEXT VISIT: Review, correct and progress HEP to tolerance. Continue with therex with flexion directional preference with emphasis on postural stretching and strengthening. Manual therapy prn. Patient demonstrates good understanding of plan of care and treatment. The above goals and plan of care were discussed and agreed upon by patient/family. SUBJECTIVE: Alberto Rodriguez is a 86 year old female seen today for intermittent pain in posterior lateral aspect of L hip and down into anterior lateral proximal L thigh. She reports that rising is a consistent trigger, especially after prolonged sitting. She reports doing outpatient phlebotomist both inside and outside. She also reports being very active volunteering as well. 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 Cancer Clinical Reasoning: No identified risk factors. Infection Clinical Reasoning: No identified risk factors. Cauda Equina Syndrome Clinical Reasoning: No identified risk factors. Red Flags - Cervical Cancer Clinical Reasoning: No identified risk factors. Infection Clinical Reasoning: No identified risk factors. Spine History Symptoms Location at Onset: Buttock, Thigh Symptoms Since Onset: Worsening Pain is Worse Always: Rising, Standing, Prolonged positions Pain is Better Sometimes: Sitting Previous Episodes: No Sleeping Position: Supine Sleep Affected by Pain: Not affected by pain Pain: Pain Pain Level: 5 Pain Location: Buttocks - Left, Hip - Left, Thigh - Left (She also reports minimal symptoms starting on R side) Description: Aching Frequency: Intermittent (rising) Detailed Pain Score: Yes Worst Pain Level: 5 Average Pain Level: 5 Best Pain Level: 0 Post Treatment Pain Post Treatment Pain Level: Better Post Treatment Pain Description: (less pain) Post Treatment Symptoms: After session and immediately upon standing up, pt stated that her pain was less and immediately better. PROMIS Scales Higher is Better 07/19/2022 Phys Func - Score 41 (mild dysfunction) Phys Func - Percentile 18 % Self-Eff Symptom - Score 41 (Average) Self-Eff Symptom - Percentile 18 % T-scores: mean of general population = 50. 5 points is clinically meaningfully difference Percentiles provide an indication of how the patient's score ranks in relation to the general population. Higher percentile rankings indicate better function/quality of life. 50th percentile is the average of the general population and indicates half of respondents had a worse score. OBJECTIVE MEASURES WITH LEVEL OF FUNCTION: Posture / Alignment Posture: Fair Hip Observations R Hip Palpation Tenderness: Greater trochanter L Hip Palpation Tenderness: Greater trochanter, Piriformis Sensation - Lower Extremity LE Light Touch Sensation: Grossly Intact Spine Observations R Lumbar Spine Palpation Tenderness: No tenderness noted L Lumbar Spine Palpation Tenderness: No tenderness noted Sensation - Lumbar Sensation: Grossly Intact Lumbar Spine AROM Lumbar Flexion: Normal Lumbar Extension: Major limitation Lumbar R Side-Bend: Normal, Increased pain Lumbar L Side-Bend: Normal Lumbar R Rotation: Normal Lumbar L Rotation: Normal LE Strength Trunk Strength: Pt's reported functional difficulty with prolonged positions indicate that she will benefit from increased core and postural strength. R LE Strength: no asymmetrical myotomal weakness detected in B LEs L LE Strength: no asymmetrical myotomal weakness detected in B LEs Special Tests - Hip and Spine Hip and Spine Special Tests: SLR Test SLR Test: Right Positive, Left Positive (L>R) Gait Gait Observation: Normal Education: Education Learning Preferences: Demonstration, Explanation, Performance, Printed Materials Barriers: None Learning/educational needs: Plan of Care, Home exercise program, Posture, Body Mechanics, Procedure / Surgery Education Provided: Yes, see treatment interventions for education provided Education Provided To: Patient Education Mode/Type: Demonstration, Explanation/Discussion, Literature/Printed Materials, Performance Response to Education/Teach Back: States/Identifies, Return Demonstration, Requires Review/Additional Education TREATMENT: PT Treatment Interventions: Therapeutic Exercise Evaluation Therapeutic Exercise: 1: Pt was educated on the anatomy of symptomatic areas, likely source of symptoms and rationale for proposed PT plan. Pt was educated the difference between a hip joint source and lumbar radiculopathy. She was repeatedly advised to stop any exercise or activitythat causes increased pain. She was educated on the role of PT and how exercise will benefit her. 2: *supine B SKTC 3x30 seconds each 3: *supine DKTC 3x30 seconds. Skilled Intervention: Patient was educated in proper exercise technique and purpose for exercises. Reviewed and educated patient on additions/changes for home exercise program as above (*). Skilled judgment was provided in selection of appropriate interventions. Provided written instruction for home exercise program to facilitate proper performance and compliance. Correct performance of therapeutic exercises was facilitated with verbal, visual, and tactile cuing. Patient education as noted. Billing * Evaluation Moderate Complexity: 1 Unit Therapeutic Exercise Treatment Minutes: 15 Total Treatment Time Minutes (timed/untimed): 45 Nick Cooper PT documented in this encounter [facility] 07-11-2022 Miscellaneous Notes Patient calls and notified of results and providers instructions. Patient verbalizes understanding. Transferred to schedule. Kristen Jorgensen RN Please let patient know her hip xray did show moderate to severe arthritic changes. Physical therapy should help with the pain, and I am putting in an orthopedic consult for further evaluation. Thank you Breanna Ortiz APRN.BASKET SORTER documented in this encounter [facility] 07-08-2022 History of Present illness Narrative Radiology Service Progress Note PATIENT NAME: Alberto Rodriguez DATE OF SERVICE: July 08, 2022 TIME: 3:06 PM PATIENT IDENTITY VERIFICATION COMPLETED USING TWO (2) IDENTIFIERS: Name and Date of confirmed by patient verbally. FALL SCREENING: Has the patient had 2 falls in the last year or 1 fall with injury or currently using an Ambulatory Assistive Device (Walker, Cane, Wheelchair, Crutches, etc.)? No PATIENT GENDER DATA: Female. status: : No status: NO. PATIENT RELEVANT IMPLANT DATA REVIEWED: Not Applicable RADIOLOGY DEPARTMENT: General X-ray: Exam(s) Completed: Pelvis X-Ray: Pelvis with Hip Left PERIPHERAL IV DATA: Not applicable SIGNED BY: RT Brandy(R) July 08, 2022 3:06 PM documented in this encounter [facility] 07-08-2022 History of Present illness Narrative CC: Patient presents with: Rash: B/L leg rash, itching HPI Alberto Rodriguez is a 86 year old female who presents today for rash. Duration: 1.5 week. Location: started to left leg then to the right leg, both arms and now hip. Itching or Pain: No. Ever had a rash like this before: No. History of skin problems such as psoriasis, eczema, hives: No. Changes in soaps or detergents: No. New medications or foods: No. Exposure to others with rash: No. Environmental exposures: No Environmental/seasonal allergies: No Fever, chills, fatigue, joint pain/swelling: No. But did have one episode yesterday while working outside that she got very hot, nauseated, and a little dizzy. Lasted the entire time while she did yard work but subsided once she went in. Treatments: has been using a lotion. Also with left hip pain for quite a long time. Has not changed but would like it looked at. Is stiff in the morning and then goes away as she walks and is active. Did have shingles to this hip 10 years ago before this pain started. Denies any previous injury, surgery, weakness, numbness, or falling. med PAST MEDICAL HISTORY Diagnosis Date Anxiety state, unspecified Disorder of bone and cartilage, unspecified 05/02/2005 Iron deficiency anemias Lipoma of other skin and subcutaneous tissue 05/02/2005 Pain in limb Pneumonia 2010 PURE HYPERCHOLESTEROLEM Pure hypercholesterolemia Urinary tract infection, site not specified PAST SURGICAL HISTORY Procedure Laterality Date COLONOSCOPY FLX DX W/COLLJ SPEC WHEN PFRMD 07/18/03 cecal lipoma, otherwise normal COLONOSCOPY FLX DX W/COLLJ SPEC WHEN PFRMD 06/27/2017 Colonoscopy EGD TRANSORAL BIOPSY SINGLE/MULTIPLE 07/27/07 Doyle-gastritis LAPS SURG CHOLECYSTECTOMY W/CHOLANGIOGRAPHY 08-02-07 RPR 1ST INCAL/VNT HERNIA INCARCERATED 08-02-07 TOTAL ABDOMINAL HYSTERECT W/WO RMVL TUBE OVARY Hysterectomy, JAGRUTI ALLERGIES Vicodin [Hydrocodone-Acetaminophen] MEDICATIONS Ciclopirox (LOPROX) 8 % solution APPLY TO NAILS DAILY AND REMOVE WITH ALCOHOL WEEKLY JUBLIA 10 % gunjan potassium chloride (K-TAB) 10 mEq tablet Take 1 tablet by mouth daily with breakfast. On days she takes lasix losartan (COZAAR) 25 mg tablet take 1 tablet by mouth once daily amLODIPine (NORVASC) 2.5 mg tablet Take 1 tablet by mouth once daily. gabapentin (NEURONTIN) 100 mg capsule Take 1 capsule by mouth daily at bedtime. furosemide (LASIX) 20 mg tablet Take 1 tablet by mouth every other day. estradiol (ESTRACE) 1 mg tablet Take 1 tablet by mouth once daily. Begin with half a pill, if symptoms dont get better take 1 pill nortriptyline (PAMELOR) 50 mg capsule TAKE ONE CAPSULE BY MOUTH EVERY DAY AT BEDTIME pravastatin (PRAVACHOL) 40 mg tablet Take 1 tablet by mouth daily at bedtime. >Zippered Compression Knee High 30-40 mm custom CUSTOM MEASURE FOR KNEE HIGH HO COMPRESSION STOCKINGS, 30-40 MM, WITH ZIPPERS PLEASE. IF UNABLE, PLEASE REFER TO [facility]UNG AT [facility]. DX: EDEMA multivitamin tablet Take 1 tablet by mouth once daily. Aspirin 81 mg Tab Take 81 mg by mouth once daily. cholecalciferol (VITAMIN D3) 50 mcg (2,000 unit) tablet Take by mouth once daily. CALCIUM 500 MG TAB Take 1500mg daily when she remebers naproxen sodium(ALEVE 220 MG TAB) Take one(1) tablet twice daily.as necessary FAMILY HISTORY Problem Relation Age of Onset Heart disease Mother Asthma Father Social History Tobacco Use Smoking status: Never Smokeless tobacco: Never Substance Use Topics Alcohol use: Yes Comment: occasionally Drug use: No REVIEW OF SYSTEMS General: no fevers, no chills, no night sweats, no recurrent infections, no change in appetite, no change in energy, and no significant changes in weight Respiratory: no cough, no wheezing, no shortness of breath, no hemoptysis Cardiovascular: no chest pain, no chest pressure, no palpitations, and no swelling PHYSICAL EXAM BP 120/68 Pulse 97 Temp 36.9 C (98.5 F) (Temporal) Resp 16 Wt 63.5 kg (140 lb) SpO2 98% BMI 26.45 kg/m General Appearance: well appearing, in no acute distress, alert Eyes: conjunctiva pink and moist, no icterus, sclera white, non-injected Neck: Thyroid normal size and symmetric without palpable nodules, Neck supple, No adenopathy Lymph nodes: No cervical lymphadenopathy and No supraclavicular lymphadenopathy Lungs: Lungs clear to auscultation. No wheezing, rhonchi, rales. Heart: RRR without murmur, gallop, or rubs. No ectopy Musculoskeletal: full ROM without pain to bilateral hips. No deformities or edema noted. Tenderness reported with palpation of joint space to left hip without grimacing or guarding Skin: flat red scattered rash to lower legs and right upper arm. Multiple spots noted form skin irritation of scratching. Dry skin noted also DATA REVIEWED: Most recent labs ASSESSMENT/PLAN: 1. Dermatitis - ICD9: 692.9, ICD10: L30.9 (primary diagnosis) - as this is occurring for 1.5 weeks will treat with Oral Steriod tx -Medrol dose pack - Anti itch therapy of Oatmeal baths and Oral Benydryl recommended prn - discussed skin care of rash - follow up if symptoms persist or worsen. 2. Chronic left hip pain - ICD9: 719.45, 338.29, ICD10: M25.552, G89.29 - outside of faint tenderness assessment negative. Gait normal. Probable arthritis - XR HIP GENERAL 3V PELV/AP/LAT LEFT Prescription instructions reviewed with patient as applicable. Potential red flag symptoms discussed with the patient. Reviewed appropriate action plan to take if red flag symptoms occur. Patient agreeable to treatment plan. Breanna Ortiz APRN.CNP documented in this encounter [facility] 06-07-2022 Miscellaneous Notes Patient has been identified by name and date of : Yes, Kristen Jorgensen RN Date 06/07/2022 Time 9:06 am Patient phones for refill(s): Requested Prescriptions Pending Prescriptions Disp Refills potassium chloride (K-TAB) 10 mEq tablet 90 tablet 0 Sig: Take 1 tablet by mouth daily with breakfast. On days she takes lasix Date of last office visit with pcp: 04/14/2022 Future appt: 10/13/2022 Last 2 Encounter Wt Readings: Date: Wt: 04/14/2022 62.1 kg (137 lb) 12/21/2021 62.1 kg (137 lb) Previous labs/tests for medication: Blood Pressure: BUN (mg/dL) Date Value 12/21/2021 18 12/12/2019 13 Sodium (mmol/L) Date Value 12/21/2021 139 12/12/2019 139 Last 1 Encounter BP Readings: Date: BP: 04/14/2022 118/72 Liver Function: ALT (U/L) Date Value 12/21/2021 13 12/12/2019 19 AST (U/L) Date Value 12/21/2021 19 12/12/2019 29 Potassium: 4.6 on 12/21/2021 Please advise. Thank you. Kristen Jorgensen RN documented in this encounter [facility] 04-14-2022 History of Present illness Narrative Reason for Visit Patient presents with: Recheck: Follow up Alberto Rodriguez is a 86 year old female who presents here today for Above Complaints.. Health Maintenance COVID-19 VACCINE(4 - Booster for Pfizer series) ADVANCE DIRECTIVE DISCUSSION DEPRESSION ASSESSMENT HPI Hypertension: she is on losartan which we started at 25 mgs, and norvasc, at 2.5 mgs daily. No side effects, her bp is normal. She is doing well. Takes her medication regularly and she has always been careful with the food. She has lost around 12 pounds in the past 18 months, cut out eating junk as much, she eats fruits mostly for lunch At Breakfast she has a good meal and in the evening she has soup etc. 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 Would like covid shot. She has her living will and advance directives and she will get it for us. No problem-specific Assessment & Plan notes found for this encounter. PAST MEDICAL HISTORY Diagnosis Date Anxiety state, unspecified Disorder of bone and cartilage, unspecified 05/02/2005 Iron deficiency anemias Lipoma of other skin and subcutaneous tissue 05/02/2005 Pain in limb Pneumonia 2010 PURE HYPERCHOLESTEROLEM Pure hypercholesterolemia Urinary tract infection, site not specified PAST SURGICAL HISTORY Procedure Laterality Date COLONOSCOPY FLX DX W/COLLJ SPEC WHEN PFRMD 07/18/03 cecal lipoma, otherwise normal COLONOSCOPY FLX DX W/COLLJ SPEC WHEN PFRMD 06/27/2017 Colonoscopy EGD TRANSORAL BIOPSY SINGLE/MULTIPLE 07/27/07 Doyle-gastritis LAPS SURG CHOLECYSTECTOMY W/CHOLANGIOGRAPHY 08-02-07 RPR 1ST INCAL/VNT HERNIA INCARCERATED 08-02-07 TOTAL ABDOMINAL HYSTERECT W/WO RMVL TUBE OVARY Hysterectomy, JAGRUTI FAMILY HISTORY Problem Relation Age of Onset Heart disease Mother Asthma Father Social History Tobacco Use Smoking status: Never Smokeless tobacco: Never Substance Use Topics Alcohol use: Yes Comment: occasionally Drug use: No Past medical history, appointments, medications, allergies reviewed. Pertinent Lab/Diagnostic Studies are reviewed and discussed today Current Outpatient Medications: losartan (COZAAR) 25 mg tablet amLODIPine (NORVASC) 2.5 mg tablet gabapentin (NEURONTIN) 100 mg capsule furosemide (LASIX) 20 mg tablet estradiol (ESTRACE) 1 mg tablet nortriptyline (PAMELOR) 50 mg capsule pravastatin (PRAVACHOL) 40 mg tablet potassium chloride (K-TAB) 10 mEq tablet >Zippered Compression Knee High 30-40 mm custom multivitamin tablet Aspirin 81 mg Tab cholecalciferol (VITAMIN D3) 50 mcg (2,000 unit) tablet CALCIUM 500 MG TAB naproxen sodium(ALEVE 220 MG TAB) Review of Systems CONSTITUTIONAL: No fevers, chills night sweats, unintended weight loss CARDIOVASCULAR: No chest pain, dyspnea, palpitations, orthopnea, PND, ankle edema. PULM: No dyspnea, unexplained cough. GI: No dysphagia/odynophagia, problematic reflux, constipation, diarrhea, changes in stool habits, hematochezia, melena. : No new urinary complaints, including dysuria, gross hematuria or pyuria. NEURO: No new balance problems, peripheral weakness/paresthesias or numbness of concern. Physical Exam BP 118/72 Pulse 88 Temp 36.5 C (97.7 F) (Temporal) Resp 16 Wt 62.1 kg (137 lb) SpO2 98% BMI 25.89 kg/m General appearance: Well appearing, alert, in no acute distress, well nourished. Skin: Skin color, texture, turgor normal, no suspicious rashes or lesions Head: Normocephalic, no masses, lesions, tenderness or abnormalities Eyes: Anicteric sclera. Pupils are equally round and reactive to light. Extraocular movements are intact. Lungs: Lungs clear to auscultation. No wheezing, rhonchi, rales Heart: RRR without murmur, gallop, or rubs. Extremities: she has compression socks on , still has trace edema ASSESSMENT/PLAN: 1. Essential hypertension - ICD9: 401.9, ICD10: I10 (primary diagnosis) - good control - Recommended regular aerobic exercise. - Recommend home blood pressure monitoring, to bring results in on next visit - Goal of BP <130/80 2. Encounter for immunization - ICD9: V03.89, ICD10: Z23 - [employer] [place] COVID-19 BIVALENT BOOSTER VACCINE, AGE 12+ YR 3. Pure hypercholesterolemia - ICD9: 272.0, ICD10: E78.00 Cont the same medication as she is tolerating it 4. PHN (postherpetic neuralgia) - ICD9: 053.19, ICD10: B02.29 Stable on gabapentin 5. Chronic venous insufficiency - ICD9: 459.81, ICD10: I87.2 Using her socks regularly and that helps Ramandeep Alvarez MD documented in this encounter [facility] 01-21-2022 Miscellaneous Notes Patient returned call and said she volunteers at [facility] and needs proof that she had her flu shot for this season given already. Printed copy of immunization records and placed to be mailed to patient as she requested, home address in computer is correct. Left message for return call, please verify what patient is needing? Flu vaccine given 12/21/21 [address] [place] Patient's place of community service is requiring proof of flu vaccination. She received her vaccine on 11/30/21. Please contact the patient to advise. documented in this encounter [facility] 12-22-2021 Miscellaneous Notes PATIENT NOTIFIED OF SAME. Called and left a voicemail for the Patient to call back and ask for a nurse to receive the providers message. Jeff Perkins RN Please let patient know lab work is overall within acceptable ranges. Slight increase in cholesterol levels. Regular exercise and low fat/low cholesterol diet should help improve this. Thank you Breanna Ortiz APRN.CNP documented in this encounter [facility] 11-24-2021 Miscellaneous Notes Noted and agree Pt returned call & states she was able to check her BP at home & it was 180/111, pt still has a headache. Per Dr Alvarez, pt was instructed to be seen in ED. Pt states understanding & will go to [facility] ED now. Carol Arredondo LPN Patient returned call and is at home now. She has no blood pressure monitor at home. She volunteers at the [facility] and was there when her bp was elevated. Patient plans to come to appt with TRANSCRIPTIONIST this afternoon. Pt called to report her BP is elevated at 173/101 his am & she has a bad headache. Pt was scheduled for an appt this afternoon. Per Dr Alvarez have pt gian BP in 1 hr & call in with result. Left message to call office. 11/24/2021 9:40 AM Carol Arredondo LPN documented in this encounter [facility] 10-08-2021 Miscellaneous Notes Patient has been identified by name and date of : Yes Patient phones for refill(s): Pending Prescriptions Disp Refills NORTRIPTYLINE 50 MG CAPSULE 90 capsule 3 Sig: TAKE ONE CAPSULE BY MOUTH EVERY DAY AT BEDTIME VERONIQUE: No Date of last office visit in primary care: 06/18/21 Last 2 Encounter Wt Readings: Date: Wt: 06/18/2021 64.4 kg (142 lb) 06/04/2020 66.8 kg (147 lb 3.2 oz) Previous labs/tests for medication: Not applicable Please advise. Thank you. Rashmi Chandra LPN Patient has been identified by name and date of : Yes Pending Prescriptions Disp Refills NORTRIPTYLINE 50 MG CAPSULE 90 capsule 3 Sig: TAKE ONE CAPSULE BY MOUTH EVERY DAY AT BEDTIME VERONIQUE: No RX INSTRUCTIONS: Patient aware RX will be sent to pharmacy. No need to notify patient. Maria Elena Rodríguez [employer] Electronically signed by Maria Elena [facility] [employer] at 10/08/2021 2:15 PM EDTdocumented in this encounter [facility] 09-30-2021 Miscellaneous Notes covermymed response. ALBERTO RODRIGUEZ Giang: [id number] Need help? Call us at Outcome Additional Information Required Available without authorization. DrugEstradiol 1MG tablets FormNovant Healthem Medicare Electronic PA Form (2016 [facility]) rec'd covermymed PA for estradiol. Requested electronic PA for this. documented in this encounter [facility] 07-30-2021 Miscellaneous Notes Patient notified and voiced her understanding. Left message for return call. ----- Message from Ramandeep Alvarez MD sent at 07/29/2021 3:09 PM EDT ----- Normal stress test documented in this encounter [facility] 07-29-2021 Note HNO ID: [id number] Author: JESICA Holder Service: Radiology Author Type: Technologist Type: Progress Notes Filed: 07/29/2021 11:09 AM Note Text: RADIOLOGY SERVICE PROGRESS NOTE SERVICE DATE: 07/29/2021 SERVICE TIME: 11:08 AM PATIENT IDENTITY VERIFICATION COMPLETED USING TWO (2) STANDARD IDENTIFIERS: Name and Date of confirmed by patient verbally and Name and Date of confirmed by identification band FALL SCREENING: Has the patient had 2 falls in the last year or 1 fall with injury or currently using an Ambulatory Assistive Device (Walker, Cane, Wheelchair, Crutches, etc.)? No PATIENT GENDER DATA: .female : No ALLERGIES: Reviewed and unchanged MEDICATIONS REVIEWED: Not applicable PATIENT RELEVANT IMPLANT DATA REVIEWED: Not Applicable CREATININE: Creatinine Date Value Ref Range Status 07/09/2021 0.89 0.58 - 0.96 mg/dL Final 12/12/2019 0.87 0.58 - 0.96 mg/dL Final 12/24/2018 0.84 0.58 - 0.96 mg/dL Final Estimated Glomerular Filtration Rate Date Value Ref Range Status 07/09/2021 64 >=60 mL/min/1.73m? Final Comment: Estimated Glomerular Filtration Rate (eGFR) is calculated using the 2020 CKD-EPI creatinine equation. This equation utilizes serum creatinine, sex, and age as parameters. The creatinine assay has traceable calibration to isotope dilution-mass spectrometry. Refer to KDIGO guidelines for clinical interpretation. In patients with unstable renal function, e.g. those with acute kidney injury, the eGFR may not accurately reflect actual GFR. eGFR- Date Value Ref Range Status 12/12/2019 >60 Final P.O.C.T. RESULTS: N/A July 29, [address] PERFORMED: No IV SITE: Ambulatory: A peripheral IV was started in the Left antecubital site with a Angio cath: 22 gauge. POST EXAM PIV STATUS: Discontinued PROCEDURE TYPE: NM Stress: 13.2mCi [id number] was administered IV for Rest Imaging at 8:30 by JESICA Holder. 31 mCi [id number] was administered IV for Stress Imaging at 10:15 by JESICA Holder. PATIENT DISCHARGED TO: Ambulatory patient, left [place] department area. A Diagnostic radioactive procedure has taken place, with no further precautions necessary other than routine body substance precautions. More information regarding radiation safety can be found using this link: [email or web address] [email or web address] SIGNATURE: Jany Henry [facility] PATIENT NAME: Alberto Rodriguez DATE: July 29, 2021 TIME: 11:08 AM PAGER/CONTACT #: [facility] 07-28-2021 Miscellaneous Notes Left message regarding reminder for stress test tomorrow and given instructions. documented in this encounter [facility] 07-27-2021 Miscellaneous Notes [employer] calling requesting copy of CT Chest results to be faxed to [phone]. Printed report from 07/09/2021 and faxed as requested. documented in this encounter [facility] 07-17-2021 Miscellaneous Notes Patient scheduled. Reny Lima Patient notified of below, please assist with scheduling stress test Please let patient know that her chest showed some inflammatory changes but not sure if that is causing the chest pain. We will start with a stress test and if that ok will send to a lung doctor I ordered the stress please hep with scheduing Regards, Ramandeep Alvarez MD Patient calling to let PCP know she is having a recurrence of symptoms of intermittent left upper back pain and left arm pain. She had a headache Monday and today. She had chest, back and arm pain two weeks ago. She thought the chest pain was heartburn and has not had recurrence of this. She had a CT scan on 07/09 for elevated D-dimer and was told results: Please let patient know that her CT of chest is negative for blood clot. There is some question of inflammation or scarring. She denies cough, SOB, chest pain and fatigue. She has no upper back pain nor left arm pain at this time. She is asking for recommendation. Please review and advise. Fadia Beltran RN documented in this encounter [facility] 07-09-2021 Miscellaneous Notes Patient returned call and went over results from Kylee Dash NP with understanding. left with patient to contact office for results Kaylynn Salinas Ma Please let Alberto that her creatinine level is good, no concerns. Carie Dash APRN.SANTO documented in this encounter [facility] 07-09-2021 History of Present illness Narrative Radiology Service Progress Note DATE OF SERVICE: July 09, 2021 TIME: 12:54 PM PATIENT IDENTITY VERIFICATION COMPLETED USING TWO (2) STANDARD IDENTIFIERS: Name and Date of confirmed by patient verbally. FALL SCREENING: Has the patient had 2 falls in the last year or 1 fall with injury or currently using an Ambulatory Assistive Device (Walker, Cane, Wheelchair, Crutches, etc.)? No PATIENT GENDER DATA: Female. status: : No status: NO. PATIENT RELEVANT IMPLANT DATA REVIEWED: Yes ALLERGIES: Reviewed and unchanged CONTRAST ALLERGY: NO. EXAM: CT -CONTRAST INDUCED NEPHROPATHY RISK FACTORS: Patient age > 60 years CREATININE: Creatinine Date Value Ref Range Status 07/09/2021 0.89 0.58 - 0.96 mg/dL Final 12/12/2019 0.87 0.58 - 0.96 mg/dL Final 12/24/2018 0.84 0.58 - 0.96 mg/dL Final Estimated Glomerular Filtration Rate Date Value Ref Range Status 07/09/2021 64 >=60 mL/min/1.73m Final Comment: Estimated Glomerular Filtration Rate (eGFR) is calculated using the 2020 CKD-EPI creatinine equation. This equation utilizes serum creatinine, sex, and age as parameters. The creatinine assay has traceable calibration to isotope dilution-mass spectrometry. Refer to KDIGO guidelines for clinical interpretation. In patients with unstable renal function, e.g. those with acute kidney injury, the eGFR may not accurately reflect actual GFR. eGFR- Date Value Ref Range Status 12/12/2019 >60 Final P.O.C.T. RESULTS: POC done: Yes, See Lab Tab July 09, 2021 TREATMENT: N/A PERIPHERAL IV DATA: Ambulatory: A peripheral IV was started in the Left antecubital site with a Angio cath: 18 gauge. RADIOLOGY DEPARTMENT: CT; Exam(s) Completed: PE Study SIGNATURE: RT Yojana(R) PATIENT NAME: Alberto Rodriguez DATE: July 09, 2021 TIME: 12:54 PM documented in this encounter [facility] 07-08-2021 Miscellaneous Notes [employer] calls to check on status of faxed request for most updated visit note. Call placed to patient to verify that request was made by patient. Patient states it is ok to fax 06/18 OV note as requested. Patient is trying get life insurance. Faxed to [phone] per request. Kristen Jorgensen RN documented in this encounter [facility] 07-08-2021 Miscellaneous Notes Patient returned call and went over results, notes from Breanna Ortiz TRANSCRIPTIONIST with understanding. Aware has lab test that needs done before CT. 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 Left message for return call. Please let patient know that I have ordered a CT of the Chest to make sure she does not have a blood clot in her lung since d-dimer is elevated and she had the episode of back and chest pain. For shortness of breath, chest pain, or any other urgent concerns she needs to go to ER. Thank you Breanna Ortiz APRN.SANTO Pt called and is notified of providers results and message. Pt states about a week ago she had pain around her heart and in her back. Denies pain anywhere else. Please call and advise.. Jeff Perkins RN D-dimer is elevated. Please ask patient if she has had any back pain, chest pain, or shortness of breath? Also does she have any pain her calves, redness or tenderness? I am wanting to make sure she does not have a blood clot. Thank you Breanna Ortiz APRN.SANTO documented in this encounter [facility] 07-03-2021 Miscellaneous Notes noted Pt called and is notified of providers message and instructions. Pt voices understanding. She reports that she was never told to get labs done on 3/25/22. She states she will be in on Monday to get her labs drawn. Jeff Perkins RN I think patient can refuse this recommendation but she does not need me to write a letter that she does not need this anymore. She can tell the insurance that she just does not want get this done as she is better now and she does not need it. I had ordered also some blood work for her which is not done. I would write a letter if she gets a D-dimer done and if that is negative Patient reports her insurance company has contacted her and is following up on an ultrasound of her leg that was to be ordered as noted on OV from 06/04/20. During that time it was documented that patient had left leg pain and swelling and due to taking estrogen she was at a risk for a blood clot. Patient reports the issue resolved and does not recall getting an US. She is requesting a letter be written for her insurance company stating her leg issue has resolved and an US was not needed. Asking for this to faxed to : [employer] FAX# [phone]. Please call patient once that has been completed. Thank you. documented in this encounter [facility] 07-01-2021 Miscellaneous Notes July 01, 2021 PID: [id number] Alberto Rodriguez [address] [place] [address] Dear Ms. Rodriguez, We are pleased to inform you that the results of your recent breast imaging exam on 07/01/2021 are normal. Your mammogram demonstrates that you have dense breast tissue, which could hide abnormalities. Dense breast tissue, in and of itself, is a relatively common condition. Therefore, this information is not provided to cause undue concern; rather, it is to raise your awareness and promote discussion with your health care provider regarding the presence of dense breast tissue in addition to other risk factors. Early detection of cancer is very important. We also understand recommendations regarding breast cancer screening are controversial. Please discuss with your primary care provider which strategy is best for you and whether a mammogram is right for you. Your imaging studies and report will be kept on file at [facility] as part of your permanent medical record and are available for your continuing care. Thank you for allowing us to help in meeting your health care needs. Sincerely, Dr. Saba Interpreting Radiologist [facility] (Normal over 40) documented in this encounter [facility] 07-01-2021 History of Present illness Narrative Radiology Service Progress Note PATIENT NAME: Alberto Rodriguez DATE OF SERVICE: July 01, 2021 TIME: 12:56 PM PATIENT IDENTITY VERIFICATION COMPLETED USING TWO (2) IDENTIFIERS: Name and Date of confirmed by patient verbally. FALL SCREENING: Has the patient had 2 falls in the last year or 1 fall with injury or currently using an Ambulatory Assistive Device (Walker, Cane, Wheelchair, Crutches, etc.)? No PATIENT GENDER DATA: Female. status: : No status: NO. PATIENT RELEVANT IMPLANT DATA REVIEWED: Not Applicable RADIOLOGY DEPARTMENT: Mammography PERIPHERAL IV DATA: Not applicable SIGNED BY: Kota Allan Xochitl (So-Shee) [employer] Kevin July 01, 2021 12:56 PM documented in this encounter [facility] 06-18-2021 History of Present illness Narrative Medicare Yearly Visit Medical B eligibilty date age 67 Date of last exam none in the past year. PAST MEDICAL HISTORY Diagnosis Date Anxiety state, unspecified Disorder of bone and cartilage, unspecified 05/02/2005 Iron deficiency anemias Lipoma of other skin and subcutaneous tissue 05/02/2005 Pain in limb Pneumonia 2010 PURE HYPERCHOLESTEROLEM Pure hypercholesterolemia Urinary tract infection, site not specified PAST SURGICAL HISTORY Procedure Laterality Date COLONOSCOPY FLX DX W/COLLJ SPEC WHEN PFRMD 07/18/03 cecal lipoma, otherwise normal COLONOSCOPY FLX DX W/COLLJ SPEC WHEN PFRMD 06/27/2017 Colonoscopy EGD TRANSORAL BIOPSY SINGLE/MULTIPLE 07/27/07 Doyle-gastritis LAPS SURG CHOLECYSTECTOMY W/CHOLANGIOGRAPHY 08-02-07 RPR 1ST INCAL/VNT HERNIA INCARCERATED 08-02-07 TOTAL ABDOMINAL HYSTERECT W/WO RMVL TUBE OVARY Hysterectomy, JAGRUTI ALLERGIES: Vicodin [Hydrocodone-Acetaminophen] Medications reviewed: Yes FAMILY HISTORY Problem Relation Age of Onset Heart disease Mother Asthma Father SOCIAL HISTORY: Social History Tobacco Use Smoking status: Never Smoker Smokeless tobacco: Never Used Substance Use Topics Alcohol use: Yes Comment: occasionally Drug use: No Alberto does regular aerobic exercise by walking. 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 She stands for and walks for at least 4 hours a day, sometimes it is 4.5 hours. She watches her diet for sodium, low fat and low cholesterol most of the time. List of current specialists seen: Eye- [facility] eye exam End of Live Planning discussed including patients advanced directive wishes: Yes I am willing to follow Alberto's advanced directives. PHQ-2 / Depression screen She in the past two weeks denies having felt down, depressed, hopeless or with little interest or pleasure in doing things. Functional Ability/Safety Screen 1. Was the patient's timed Up and Go test unsteady or longer than 30 seconds? No 2. Does the patient need help with the phone, transportation, shopping,preparing meals, housework, laundry, medications or managing money? No 3. Does your home have rugs in the hallway, lack of grab bars in the bathroom, lack of handrails on the stairs or have poor lighting? No Hearing Evaluation: normal PHYSICAL EXAM BP 114/56 (BP Site: Left Arm, BP Position: Sitting, BP Cuff Size: Regular Adult) Pulse 83 Temp 36.4 C (97.6 F) Resp 12 Ht 154.9 cm (5' 1) Wt 64.4 kg (142 lb) SpO2 99% BMI 26.83 kg/m Alert and oriented X 3: YES Body mass index is 26.83 kg/m . ASSESSMENT/PLAN: 85 year old female The following prevention plan was discussed during the office visit and provided to the patient: - Glaucoma screening - Lipid panel Ramandeep Alvarez MD Reason for Visit Patient presents with: Established Patient: physical Alberto Rodriguez is a 85 year old female who presents here today for Above Complaints.. Health Maintenance DTAP,TDAP,TD(1 - Tdap) COVID-19 VACCINE(3 - Booster for Pfizer series) ADVANCE DIRECTIVE DISCUSSION HPI HTN: Compliant with medications. Denies any chest pain, palpitations, or edema. No SOB. Doesn't check BP at home generally. Careful with diet to avoid salt, trying to eat more fruits and vegetables, exercises regularly. HPL: Reviewed test results with patient , takes medications regularly , does not report side effects. Conscious to avoid red meats, full fat dairy and its by products. Exercising 3 to 5 times a week. Needs mammogram as she continues on the estrogen No problem-specific Assessment & Plan notes found for this encounter. PAST MEDICAL HISTORY Diagnosis Date Anxiety state, unspecified Disorder of bone and cartilage, unspecified 05/02/2005 Iron deficiency anemias Lipoma of other skin and subcutaneous tissue 05/02/2005 Pain in limb Pneumonia 2010 PURE HYPERCHOLESTEROLEM Pure hypercholesterolemia Urinary tract infection, site not specified PAST SURGICAL HISTORY Procedure Laterality Date COLONOSCOPY FLX DX W/COLLJ SPEC WHEN PFRMD 07/18/03 cecal lipoma, otherwise normal COLONOSCOPY FLX DX W/COLLJ SPEC WHEN PFRMD 06/27/2017 Colonoscopy EGD TRANSORAL BIOPSY SINGLE/MULTIPLE 07/27/07 Doyle-gastritis LAPS SURG CHOLECYSTECTOMY W/CHOLANGIOGRAPHY 08-02-07 RPR 1ST INCAL/VNT HERNIA INCARCERATED 08-02-07 TOTAL ABDOMINAL HYSTERECT W/WO RMVL TUBE OVARY Hysterectomy, JAGRUTI FAMILY HISTORY Problem Relation Age of Onset Heart disease Mother Asthma Father Social History Tobacco Use Smoking status: Never Smoker Smokeless tobacco: Never Used Substance Use Topics Alcohol use: Yes Comment: occasionally Drug use: No Past medical history, appointments, medications, allergies reviewed. Pertinent Lab/Diagnostic Studies are reviewed and discussed today Current Outpatient Medications: estradiol (ESTRACE) 1 mg tablet nortriptyline (PAMELOR) 50 mg capsule pravastatin (PRAVACHOL) 40 mg tablet furosemide (LASIX) 20 mg tablet potassium chloride (K-TAB) 10 mEq tablet gabapentin (NEURONTIN) 100 mg capsule >Zippered Compression Knee High 30-40 mm custom multivitamin tablet Aspirin 81 mg Tab Cholecalciferol, Vitamin D3, (VITAMIN D-3) 2,000 unit Tab CALCIUM 500 MG TAB naproxen sodium(ALEVE 220 MG TAB) Review of Systems CONSTITUTIONAL: No fevers, chills night sweats, unintended weight loss CARDIOVASCULAR: No chest pain, dyspnea, palpitations, orthopnea, PND, ankle edema. PULM: No dyspnea, unexplained cough. GI: No dysphagia/odynophagia, problematic reflux, constipation, diarrhea, changes in stool habits, hematochezia, melena. : No new urinary complaints, including dysuria, gross hematuria or pyuria. NEURO: No new balance problems, peripheral weakness/paresthesias or numbness of concern. Physical Exam BP 114/56 (BP Site: Left Arm, BP Position: Sitting, BP Cuff Size: Regular Adult) Pulse 83 Temp 36.4 C (97.6 F) Resp 12 Ht 154.9 cm (5' 1) Wt 64.4 kg (142 lb) SpO2 99% BMI 26.83 kg/m General appearance: Well appearing, alert, in no acute distress, well nourished. Skin: Skin color, texture, turgor normal, no suspicious rashes or lesions Head: Normocephalic, no masses, lesions, tenderness or abnormalities Eyes: Anicteric sclera. Pupils are equally round and reactive to light. Extraocular movements are intact. Lungs: Lungs clear to auscultation. No wheezing, rhonchi, rales Heart: RRR without murmur, gallop, or rubs. Extremities: No deformities, edema, skin discoloration, clubbing or cyanosis. Good capillary refill. ASSESSMENT/PLAN: 1. Medicare annual wellness visit, subsequent - ICD9: V70.0, ICD10: Z00.00 (primary diagnosis) - Counseled on healthy diet and regular exercise - Calcium intake with supplements or by diet of 1000 mg/day for under 50, 9750-3852 mg/day for 50+ 2. Hot flashes - ICD9: 782.62, ICD10: R23.2 - ESTRADIOL 1 MG TABLET 3. Insomnia, unspecified type - ICD9: 780.52, ICD10: G47.00 - NORTRIPTYLINE 50 MG CAPSULE 4. Pure hypercholesterolemia - ICD9: 272.0, ICD10: E78.00 - PRAVASTATIN 40 MG TABLET - LIPID PANEL BASIC - COMP METABOLIC PANEL 5. Essential hypertension - ICD9: 401.9, ICD10: I10 - good control - Recommended regular aerobic exercise. - Recommend home blood pressure monitoring, to bring results in on next visit - Goal of BP <130/80 - CBC + DIFF 6. Breast cancer screening by mammogram - ICD9: V76.12, ICD10: Z12.31 - Encouraged monthly BSE - Follow up for annual exam in one year. - VALERI SCREENING W ARMANDO Alvarez MD documented in this encounter [facility] 06-14-2012 History of Past i llness Narrative Problem Noted Date Resolved Date Postherpetic neuralgia 06/14/2012 5 Hot flash, menopausal 06/21/2011 06/27/2014 Dysuria 08/16/2007 06/27/2014 Urinary tract infection, site not specified 12/30/2015 documented as of this encounter (statuses as of 06/18/2021) [facility] History of Past illness Narrative* Problem Noted Date Resolved Date Postherpetic neuralgia 06/14/2012 5 Hot flash, menopausal 06/21/2011 06/27/2014 Dysuria 08/16/2007 06/27/2014 Urinary tract infection, site not specified 12/30/2015 documented as of this encounter (statuses as of 07/02/2021) [facility] History of Past illness Narrative* Problem Noted Date Resolved Date Postherpetic neuralgia 06/14/2012 5 Hot flash, menopausal 06/21/2011 06/27/2014 Dysuria 08/16/2007 06/27/2014 Urinary tract infection, site not specified 12/30/2015 documented as of this encounter (statuses as of 07/03/2021) [facility] History of Past illness Narrative* Problem Noted Date Resolved Date Postherpetic neuralgia 06/14/2012 5 Hot flash, menopausal 06/21/2011 06/27/2014 Dysuria 08/16/2007 06/27/2014 Urinary tract infection, site not specified 12/30/2015 documented as of this encounter (statuses as of 07/05/2021) [facility] History of Past illness Narrative* Problem Noted Date Resolved Date Postherpetic neuralgia 06/14/2012 5 Hot flash, menopausal 06/21/2011 06/27/2014 Dysuria 08/16/2007 06/27/2014 Urinary tract infection, site not specified 12/30/2015 documented as of this encounter (statuses as of 07/08/2021) [address] History of Past illness Narrative* Problem Noted Date Resolved Date Postherpetic neuralgia 06/14/2012 5 Hot flash, menopausal 06/21/2011 06/27/2014 Dysuria 08/16/2007 06/27/2014 Urinary tract infection, site not specified 12/30/2015 documented as of this encounter (statuses as of 07/08/2021) [facility] History of Past illness Narrative* Problem Noted Date Resolved Date Postherpetic neuralgia 06/14/2012 5 Hot flash, menopausal 06/21/2011 06/27/2014 Dysuria 08/16/2007 06/27/2014 Urinary tract infection, site not specified 12/30/2015 documented as of this encounter (statuses as of 07/09/2021) [facility] History of Past illness Narrative* Problem Noted Date Resolved Date Postherpetic neuralgia 06/14/2012 5 Hot flash, menopausal 06/21/2011 06/27/2014 Dysuria 08/16/2007 06/27/2014 Urinary tract infection, site not specified 12/30/2015 documented as of this encounter (statuses as of 07/10/2021) [facility] History of Past illness Narrative* Problem Noted Date Resolved Date Postherpetic neuralgia 06/14/2012 5 Hot flash, menopausal 06/21/2011 06/27/2014 Dysuria 08/16/2007 06/27/2014 Urinary tract infection, site not specified 12/30/2015 documented as of this encounter (statuses as of 07/17/2021) [place] [address]-21-2013 History of Past illness Narrative* Problem Noted Date Resolved Date Postherpetic neuralgia 06/14/2012 5 Hot flash, menopausal 06/21/2011 06/27/2014 Dysuria 08/16/2007 06/27/2014 Urinary tract infection, site not specified 12/30/2015 documented as of this encounter (statuses as of 07/27/2021) [facility] History of Past illness Narrative* Problem Noted Date Resolved Date Postherpetic neuralgia 06/14/2012 5 Hot flash, menopausal 06/21/2011 06/27/2014 Dysuria 08/16/2007 06/27/2014 Urinary tract infection, site not specified 12/30/2015 documented as of this encounter (statuses as of 07/28/2021) [address] History of Past illness Narrative* Problem Noted Date Resolved Date Postherpetic neuralgia 06/14/2012 5 Hot flash, menopausal 06/21/2011 06/27/2014 Dysuria 08/16/2007 06/27/2014 Urinary tract infection, site not specified 12/30/2015 documented as of this encounter (statuses as of 07/30/2021) [facility] History of Past illness Narrative* Problem Noted Date Resolved Date Postherpetic neuralgia 06/14/2012 5 Hot flash, menopausal 06/21/2011 06/27/2014 Dysuria 08/16/2007 06/27/2014 Urinary tract infection, site not specified 12/30/2015 documented as of this encounter (statuses as of 07/30/2021) [facility] History of Past illness Narrative* Problem Noted Date Resolved Date Postherpetic neuralgia 06/14/2012 5 Hot flash, menopausal 06/21/2011 06/27/2014 Dysuria 08/16/2007 06/27/2014 Urinary tract infection, site not specified 12/30/2015 documented as of this encounter (statuses as of 09/30/2021) [facility] History of Past illness Narrative* Problem Noted Date Resolved Date Postherpetic neuralgia 06/14/2012 5 Hot flash, menopausal 06/21/2011 06/27/2014 Dysuria 08/16/2007 06/27/2014 Urinary tract infection, site not specified 12/30/2015 documented as of this encounter (statuses as of 10/08/2021) [facility] History of Past illness Narrative* Problem Noted Date Resolved Date Postherpetic neuralgia 06/14/2012 5 Hot flash, menopausal 06/21/2011 06/27/2014 Dysuria 08/16/2007 06/27/2014 Urinary tract infection, site not specified 12/30/2015 documented as of this encounter (statuses as of 11/24/2021) [address] History of Past illness Narrative* Problem Noted Date Resolved Date Postherpetic neuralgia 06/14/2012 5 Hot flash, menopausal 06/21/2011 06/27/2014 Dysuria 08/16/2007 06/27/2014 Urinary tract infection, site not specified 12/30/2015 documented as of this encounter (statuses as of 12/22/2021) [facility] History of Past illness Narrative* Problem Noted Date Resolved Date Postherpetic neuralgia 06/14/2012 5 Hot flash, menopausal 06/21/2011 06/27/2014 Dysuria 08/16/2007 06/27/2014 Urinary tract infection, site not specified 12/30/2015 documented as of this encounter (statuses as of 01/21/2022) [facility] History of Past illness Narrative* Problem Noted Date Resolved Date Postherpetic neuralgia 06/14/2012 5 Hot flash, menopausal 06/21/2011 06/27/2014 Dysuria 08/16/2007 06/27/2014 Urinary tract infection, site not specified 12/30/2015 documented as of this encounter (statuses as of 04/14/2022) [facility] History of Past illness Narrative* Problem Noted Date Resolved Date Postherpetic neuralgia 06/14/2012 5 Hot flash, menopausal 06/21/2011 06/27/2014 Dysuria 08/16/2007 06/27/2014 Urinary tract infection, site not specified 12/30/2015 documented as of this encounter (statuses as of 06/07/2022) [place] [id number] History of Past illness Narrative* Problem Noted Date Resolved Date Postherpetic neuralgia 06/14/2012 5 Hot flash, menopausal 06/21/2011 06/27/2014 Dysuria 08/16/2007 06/27/2014 Urinary tract infection, site not specified 12/30/2015 documented as of this encounter (statuses as of 07/09/2022) [facility] History of Past illness Narrative* Problem Noted Date Resolved Date Postherpetic neuralgia 06/14/2012 5 Hot flash, menopausal 06/21/2011 06/27/2014 Dysuria 08/16/2007 06/27/2014 Urinary tract infection, site not specified 12/30/2015 documented as of this encounter (statuses as of 07/11/2022) [address]21-2013 History of Past illness Narrative* Problem Noted Date Resolved Date Postherpetic neuralgia 06/14/2012 5 Hot flash, menopausal 06/21/2011 06/27/2014 Dysuria 08/16/2007 06/27/2014 Urinary tract infection, site not specified 12/30/2015 documented as of this encounter (statuses as of 07/20/2022) [facility] History of Past illness Narrative* Problem Noted Date Resolved Date Postherpetic neuralgia 06/14/2012 5 Hot flash, menopausal 06/21/2011 06/27/2014 Dysuria 08/16/2007 06/27/2014 Urinary tract infection, site not specified 12/30/2015 documented as of this encounter (statuses as of 07/28/2022) [facility] History of Past illness Narrative* Problem Noted Date Resolved Date Postherpetic neuralgia 06/14/2012 5 Hot flash, menopausal 06/21/2011 06/27/2014 Dysuria 08/16/2007 06/27/2014 Urinary tract infection, site not specified 12/30/2015 documented as of this encounter (statuses as of 08/02/2022) [facility] History of Past illness Narrative* Problem Noted Date Resolved Date Postherpetic neuralgia 06/14/2012 5 Hot flash, menopausal 06/21/2011 06/27/2014 Dysuria 08/16/2007 06/27/2014 Urinary tract infection, site not specified 12/30/2015 documented as of this encounter (statuses as of 08/25/2022) [facility] History of Past illness Narrative* Problem Noted Date Resolved Date Postherpetic neuralgia 06/14/2012 5 Hot flash, menopausal 06/21/2011 06/27/2014 Dysuria 08/16/2007 06/27/2014 Urinary tract infection, site not specified 12/30/2015 documented as of this encounter (statuses as of 09/30/2022) [facility] History of Past illness Narrative* Problem Noted Date Resolved Date Postherpetic neuralgia 06/14/2012 5 Hot flash, menopausal 06/21/2011 06/27/2014 Dysuria 08/16/2007 06/27/2014 Urinary tract infection, site not specified 12/30/2015 documented as of this encounter (statuses as of 09/30/2022) [facility] History of Past illness Narrative* Problem Noted Date Diagnosed Date Resolved Date Postherpetic neuralgia 06/14/201206/27 Hot flash, menopausal 06/21/20112014 Dysuria 08/16/2007 06/27/2014 Urinary tract infection, site not specified 12/30/2015 documented as of this encounter (statuses as of 01/05/2023) [facility] History of Past illness Narrative* Problem Noted Date Diagnosed Date Resolved Date Postherpetic neuralgia 06/14/201206/27 Hot flash, menopausal 06/21/20112014 Dysuria 08/16/2007 06/27/2014 Urinary tract infection, site not specified 12/30/2015 documented as of this encounter (statuses as of 01/13/2023) [facility] History of Past illness Narrative* Problem Noted Date Diagnosed Date Resolved Date Postherpetic neuralgia 06/14/201206/27 Hot flash, menopausal 06/21/20112014 Dysuria 08/16/2007 06/27/2014 Urinary tract infection, site not specified 12/30/2015 documented as of this encounter (statuses as of 02/08/2023) [facility] History of Past illness Narrative* Problem Noted Date Diagnosed Date Resolved Date Postherpetic neuralgia 06/14/201206/27 Hot flash, menopausal 06/21/20112014 Dysuria 08/16/2007 06/27/2014 Urinary tract infection, site not specified 12/30/2015 documented as of this encounter (statuses as of 07/12/2023) [facility] note* Diagnosis Medicare annual wellness visit, subsequent- Primary Routine general medical examination at a health care facility Hot flashes Symptomatic menopausal or female climacteric states Insomnia, unspecified type Pure hypercholesterolemia Essential hypertension Unspecified essential hypertension Breast cancer screening by mamm[facility] Diagnosis Breast cancer screening by mammogram [facility] Diagnosis Leg swelling- Primary Swelling of limb [facility] Diagnosis Back pain, unspecified back location, unspecified back pain laterality, unspecified chronicity- Primary Chest pain, unspecified type Elevated d-dimer Abnormal coagulation profile [facility] Diagnosis Back pain, unspecified back location, unspecified back pain laterality, unspecified chronicity Chest pain, unspecified type Elevated d-dimer Abnormal coagulation profile [facility]* Diagnosis Encounter for screening for cardiovascular disorders- Primary Screening for other and unspecified cardiovascular conditions [facility] Diagnosis Insomnia, unspecified type [facility] Diagnosis Essential hypertension- Primary Unspecified essential hypertension Encounter for immunization Need for other specified prophylactic vaccination against single bacterial disease Pure hypercholesterolemia PHN (postherpetic neuralgia) Herpes zoster with other nervous system complications Chronic venous insufficiency Unspecified venous (peripheral) insufficiency [facility]* Diagnosis Diastolic dysfunction Heart disease, unspecified [facility] Diagnosis Dermatitis- Primary Contact dermatitis and other eczema, due to unspecified cause Chronic left hip pain Pain in joint, pelvic region and thigh [facility] Diagnosis Chronic left hip pain- Primary Pain in joint, pelvic region and thigh [facility] Diagnosis Chronic left hip pain Pain in joint, pelvic region and thigh Pain of left hip joint [facility] Diagnosis Pain of left hip joint- Primary [facility] Diagnosis Pain of left hip joint- Primary [facility] Diagnosis Insomnia, unspecified type Hot flashes Symptomatic menopausal or female climacteric states Pure hypercholesterolemia [facility] Diagnosis Diastolic dysfunction Heart disease, unspecified [facility]* Diagnosis Feared condition not demonstrated- Primary Person with feared complaint in whom no diagnosis was made History of shingles Personal history of other infectious and parasitic disease Gastroesophageal reflux disease, unspecified whether esophagitis present Pure hypercholesterolemia [facility]* Diagnosis Essential hypertension- Primary Unspecified essential hypertension Post herpetic neuralgia Herpes zoster with other nervous system complications Diastolic dysfunction Heart disease, unspecified Pain of left hip joint PHN (postherpetic neuralgia) Herpes zoster with other nervous system complications Gastroesophageal reflux disease, unspecified whether esophagitis present Encounter for screening mammogram for breast cancer documented in this encounter [facility] note* Diagnosis Iron deficiency anemia, unspecified iron deficiency anemia type- Primary Pure hypercholesterolemia Gastroesophageal reflux disease, unspecified whether esophagitis present Essential hypertension Unspecified essential hypertension Encounter for screening for diabetes mellitus Screening for diabetes mellitus Hot flashes Symptomatic menopausal or female climacteric states Insomnia, unspecified type Encounter for screening for osteoporosis Special screening for osteoporosis Asymptomatic postmenopausal status [facility] Diagnosis Post herpetic neuralgia Herpes zoster with other nervous system complications [facility] Diagnosis Encounter for screening for osteoporosis Special screening for osteoporosis Asymptomatic postmenopausal status [facility] Diagnosis Encounter for screening mammogram for breast cancer documented in this encounter [facility] note* Diagnosis Abnormal mammogram of both breasts- Primary [facility]* Diagnosis Iron deficiency anemia, unspecified iron deficiency anemia type- Primary [facility] Diagnosis Abnormal mammogram of both breasts [facility] Diagnosis Abnormal mammogram of both breasts [facility] Diagnosis Abnormal finding on breast imaging- Primary Other (abnormal) findings on radiological examination of breast [facility]* Diagnosis Abnormal mammogram- Primary Abnormal mammogram, unspecified documented [facility] Diagnosis Rash and nonspecific skin eruption- Primary Rash and other nonspecific skin eruption documented in this encounter [facility] note* Diagnosis Abnormal mammogram Abnormal mammogram, unspecified [facility] Diagnosis Malignant neoplasm of upper-outer quadrant of right breast in female, estrogen receptor positive (HCC)- Primary [facility] Diagnosis Malignant neoplasm of upper-outer quadrant of right breast in female, estrogen receptor positive (HCC)- Primary Pure hypercholesterolemia Essential hypertension Unspecified essential hypertension Malignant neoplasm of upper-outer quadrant of right breast in female, estrogen receptor positive (HCC) [facility] Diagnosis Malignant neoplasm of upper-outer quadrant of right breast in female, estrogen receptor positive (HCC) [facility] Diagnosis Malignant neoplasm of upper-outer quadrant of right breast in female, estrogen receptor positive (HCC) [facility]* Diagnosis Breast disorder Unspecified breast disorder [facility] Diagnosis Mass of left breast, unspecified quadrant Abnormal ultrasound of breast Other (abnormal) findings on radiological examination of breast [facility]* Diagnosis Abnormal ultrasound of breast Other (abnormal) findings on radiological examination of breast Abnormal ultrasound of breast Other (abnormal) findings on radiological examination of breast [facility] Diagnosis Abnormal MRI, breast- Primary Other (abnormal) findings on radiological examination of breast Abnormal ultrasound of breast Other (abnormal) findings on radiological examination of breast [facility] Diagnosis Malignant neoplasm of upper-outer quadrant of right breast in female, estrogen receptor positive (HCC)- Primary Anemia, unspecified type Abnormal ultrasound of breast Other (abnormal) findings on radiological examination of breast [facility]* Diagnosis Malignant neoplasm of upper-outer quadrant of right breast in female, estrogen receptor positive (HCC)- Primary Abnormal ultrasound of breast Other (abnormal) findings on radiological examination of breast [facility] Diagnosis Abnormal MRI, breast Other (abnormal) findings on radiological examination of breast [facility] Diagnosis Abnormal finding on breast imaging- Primary Other (abnormal) findings on radiological examination of breast [facility] Diagnosis Pure hypercholesterolemia Insomnia, unspecified type Malignant neoplasm of upper-outer quadrant of right breast in female, estrogen receptor positive (HCC) Atypical lobular hyperplasia (ALH) of left breast [facility]* Diagnosis Pre-operative examination- Primary Preoperative examination, unspecified Malignant neoplasm of upper-outer quadrant of right breast in female, estrogen receptor positive (HCC) Essential hypertension Unspecified essential hypertension Pure hypercholesterolemia Gastroesophageal reflux disease, unspecified whether esophagitis present History of cerebral infarction Transient ischemic attack (TIA), and cerebral infarction without residual deficits Murmur, cardiac Undiagnosed cardiac murmurs MULTINODULAR GOITER (NONTOXIC) Nontoxic multinodular goiter Iron deficiency anemia, unspecified iron deficiency anemia type Anxiety state Anxiety state, unspecified Osteopenia, unspecified location Malignant neoplasm of upper-outer quadrant of right breast in female, estrogen receptor positive (HCC) Atypical lobular hyperplasia (ALH) of left breast * Assessment & Plan Note - Elizabeth Smith APRN.CNP - 12/08/2023 2:17 PM EDT Associated Problem(s): Osteopenia Assessment: taking supplements, no recent fx's * Assessment & Plan Note - Elizabeth Smith APRN.CNP - 12/08/2023 2:16 PM EDT Associated Problem(s): Anxiety state Assessment: stable on rx per pt * Assessment & Plan Note - Elizabeth Smith APRN.CNP - 12/08/2023 2:16 PM EDT Associated Problem(s): Iron deficiency anemia Assessment: hx, following hematology Hemoglobin (g/dL) Date Value 11/08/2023 11.2 12/12/2019 12.4 Hematocrit (%) Date Value 11/08/2023 35.6 12/12/2019 40.9 WBC (k/uL) Date Value 11/08/2023 7.24 12/12/2019 6.43 * Assessment & Plan Note - Elizabeth Smith APRN.CNP - 12/08/2023 2:12 PM EDT Associated Problem(s): MULTINODULAR GOITER (NONTOXIC) Assessment: hx, denies compressive symptoms, only imaging found was from 2008, no repeat noted in [facility] TSH Date Value Ref Range Status 07/11/2023 4.470 (H) 0.270 - 4.200 mIU/L Final 2009 Thyroid US The right lobe measured 5.2 x 1.4 x 1.8 cm. The right lobe has a heterogeneous echotexture with multiple nodules. There is some shadowing emanating from some of the nodules suggesting calcification. There is a hypoechoic nodule in the upper pole measuring 7 x 4 x 6 mm. There is a hypoechoic nodule in the midportion of the right lobe measuring 6 x 3 x 7 mm. There is a hypoechoic nodule in the posterior aspect of the midportion of the right lobe measuring 9 x 4 x 7 mm. There is also a nodule in the lower pole measuring 9 x 8 x 8 mm. The left lobe of the thyroid measured 4.9 x 1.5 x 1.8 cm. The left lobe has a heterogeneous echotexture and multiple nodules. There was also some shadowing from some of the nodules suggesting calcification. A nodule in the lower pole measured 6 x 6 x 6 mm, one in the midportion measured 12 x 8 x 12 mm and one in the mid portion measured 5 x 3 x 4 mm. The isthmus measured 2 mm in thickness. IMPRESSION: The findings are compatible with a multinodular goiter. * Assessment & Plan Note - Elizabeth Smith APRN.CNP - 12/08/2023 2:10 PM EDT Associated Problem(s): Murmur, cardiac Assessment: harsh murmur heard on exam, last echo with only trace to mild VHD, repeat echo ordered.Pt had negative stress test 2021, and today's EKG NSR. Pt denies palpitations, sob, orthopnea, GARCIA,new or worsening cardiac symptoms. * Assessment & Plan Note - Elizabeth Smith APRN.CNP - 12/08/2023 2:09 PM EDT Associated Problem(s): History of cerebral infarction Images from the original note were not included. Assessment: pt unaware of dx, found in [facility] with brain MRI 10/2021. Denies any deficits. Lives alone, very active. * Assessment & Plan Note - Elizabeth Smith APRN.CNP - 12/08/2023 2:05 PM EDT Associated Problem(s): Esophageal reflux Assessment: controlled on rx * Assessment & Plan Note - Elizabeth Smith APRN.CNP - 12/08/2023 2:04 PM EDT Associated Problem(s): Pure hypercholesterolemia Assessment: c/w statin * Assessment & Plan Note - Elizabeth Smith APRN.CNP - 12/08/2023 2:04 PM EDT Associated Problem(s): Essential hypertension Assessment: controlled on rx Last 14 BP Last 14 Encounter BP Readings: Date: BP: 12/08/2023 132/78 11/08/2023 109/63 11/08/2023 104/63 09/15/2023 105/64 08/29/2023 112/64 07/11/2023 108/58 01/05/2023 123/61 09/30/2022 112/62 07/19/2022 108/64 07/08/2022 120/68 04/14/2022 118/72 12/21/2021 126/66 11/30/2021 114/70 06/18/2021 114/56 documented in this encounter [facility] note* Diagnosis Pre-operative examination- Primary Preoperative examination, unspecified Malignant neoplasm of upper-outer quadrant of right breast in female, estrogen receptor positive (HCC) Essential hypertension Unspecified essential hypertension Pure hypercholesterolemia Gastroesophageal reflux disease, unspecified whether esophagitis present History of cerebral infarction Transient ischemic attack (TIA), and cerebral infarction without residual deficits Murmur, cardiac Undiagnosed cardiac murmurs MULTINODULAR GOITER (NONTOXIC) Nontoxic multinodular goiter Iron deficiency anemia, unspecified iron deficiency anemia type Anxiety state Anxiety state, unspecified Osteopenia, unspecified location Poison armin dermatitis- Primary Contact dermatitis and other eczema due to plants (except food) Hot flashes Symptomatic menopausal or female climacteric states Essential hypertension Unspecified essential hypertension Malignant neoplasm of upper-outer quadrant of right breast in female, estrogen receptor positive (HCC) Atypical lobular hyperplasia (ALH) of left breast documented in this encounter [facility] note* Diagnosis Pre-operative examination- Primary Preoperative examination, unspecified Malignant neoplasm of upper-outer quadrant of right breast in female, estrogen receptor positive (HCC) Essential hypertension Unspecified essential hypertension Pure hypercholesterolemia Gastroesophageal reflux disease, unspecified whether esophagitis present History of cerebral infarction Transient ischemic attack (TIA), and cerebral infarction without residual deficits Murmur, cardiac Undiagnosed cardiac murmurs MULTINODULAR GOITER (NONTOXIC) Nontoxic multinodular goiter Iron deficiency anemia, unspecified iron deficiency anemia type Anxiety state Anxiety state, unspecified Osteopenia, unspecified location Malignant neoplasm of upper-outer quadrant of right breast in female, estrogen receptor positive (HCC)- Primary Encounter for education Counseling NOS Malignant neoplasm of upper-outer quadrant of right breast in female, estrogen receptor positive (HCC) Atypical lobular hyperplasia (ALH) of left breast documented in this encounter [facility] note* Diagnosis Pre-operative examination- Primary Preoperative examination, unspecified Malignant neoplasm of upper-outer quadrant of right breast in female, estrogen receptor positive (HCC) Essential hypertension Unspecified essential hypertension Pure hypercholesterolemia Gastroesophageal reflux disease, unspecified whether esophagitis present History of cerebral infarction Transient ischemic attack (TIA), and cerebral infarction without residual deficits Murmur, cardiac Undiagnosed cardiac murmurs MULTINODULAR GOITER (NONTOXIC) Nontoxic multinodular goiter Iron deficiency anemia, unspecified iron deficiency anemia type Anxiety state Anxiety state, unspecified Osteopenia, unspecified location Abnormal finding on breast imaging Other (abnormal) findings on radiological examination of breast Malignant neoplasm of upper-outer quadrant of right breast in female, estrogen receptor positive (HCC) Atypical lobular hyperplasia (ALH) of left breast [facility]* Diagnosis Chronic left hip pain Pain in joint, pelvic region and thigh Pre-operative examination- Primary Preoperative examination, unspecified Malignant neoplasm of upper-outer quadrant of right breast in female, estrogen receptor positive (HCC) Essential hypertension Unspecified essential hypertension Pure hypercholesterolemia Gastroesophageal reflux disease, unspecified whether esophagitis present History of cerebral infarction Transient ischemic attack (TIA), and cerebral infarction without residual deficits Murmur, cardiac Undiagnosed cardiac murmurs MULTINODULAR GOITER (NONTOXIC) Nontoxic multinodular goiter Iron deficiency anemia, unspecified iron deficiency anemia type Anxiety state Anxiety state, unspecified Osteopenia, unspecified location VHD (valvular heart disease) Endocarditis, valve unspecified, unspecified cause documented in this encounter [facility] note* Diagnosis Post-op pain- Primary Other acute postoperative pain Malignant neoplasm of upper-outer quadrant of right breast in female, estrogen receptor positive (HCC) Atypical lobular hyperplasia (ALH) of left breast Pre-operative examination- Primary Preoperative examination, unspecified Malignant neoplasm of upper-outer quadrant of right breast in female, estrogen receptor positive (HCC) Essential hypertension Unspecified essential hypertension Pure hypercholesterolemia Gastroesophageal reflux disease, unspecified whether esophagitis present History of cerebral infarction Transient ischemic attack (TIA), and cerebral infarction without residual deficits Murmur, cardiac Undiagnosed cardiac murmurs MULTINODULAR GOITER (NONTOXIC) Nontoxic multinodular goiter Iron deficiency anemia, unspecified iron deficiency anemia type Anxiety state Anxiety state, unspecified Osteopenia, unspecified location VHD (valvular heart disease) Endocarditis, valve unspecified, unspecified cause [facility] Diagnosis Pre-operative examination- Primary Preoperative examination, unspecified Malignant neoplasm of upper-outer quadrant of right breast in female, estrogen receptor positive (HCC) Essential hypertension Unspecified essential hypertension Pure hypercholesterolemia Gastroesophageal reflux disease, unspecified whether esophagitis present History of cerebral infarction Transient ischemic attack (TIA), and cerebral infarction without residual deficits Murmur, cardiac Undiagnosed cardiac murmurs MULTINODULAR GOITER (NONTOXIC) Nontoxic multinodular goiter Iron deficiency anemia, unspecified iron deficiency anemia type Anxiety state Anxiety state, unspecified Osteopenia, unspecified location VHD (valvular heart disease) Endocarditis, valve unspecified, unspecified cause Atypical lobular hyperplasia (ALH) of left breast- Primary Malignant neoplasm of upper-outer quadrant of right breast in female, estrogen receptor positive (HCC) [facility] Diagnosis Breast disorder- Primary Unspecified breast disorder documented in this encounter [facility] note* Diagnosis Pre-operative examination- Primary Preoperative examination, unspecified Malignant neoplasm of upper-outer quadrant of right breast in female, estrogen receptor positive (HCC) Essential hypertension Unspecified essential hypertension Pure hypercholesterolemia Gastroesophageal reflux disease, unspecified whether esophagitis present History of cerebral infarction Transient ischemic attack (TIA), and cerebral infarction without residual deficits Murmur, cardiac Undiagnosed cardiac murmurs MULTINODULAR GOITER (NONTOXIC) Nontoxic multinodular goiter Iron deficiency anemia, unspecified iron deficiency anemia type Anxiety state Anxiety state, unspecified Osteopenia, unspecified location VHD (valvular heart disease) Endocarditis, valve unspecified, 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, estrogen receptor positive (HCC)- Primary documented in this encounter [facility] note* Diagnosis Pre-operative examination- Primary Preoperative examination, unspecified Malignant neoplasm of upper-outer quadrant of right breast in female, estrogen receptor positive (HCC) Essential hypertension Unspecified essential hypertension Pure hypercholesterolemia Gastroesophageal reflux disease, unspecified whether esophagitis present History of cerebral infarction Transient ischemic attack (TIA), and cerebral infarction without residual deficits Murmur, cardiac Undiagnosed cardiac murmurs MULTINODULAR GOITER (NONTOXIC) Nontoxic multinodular goiter Iron deficiency anemia, unspecified iron deficiency anemia type Anxiety state Anxiety state, unspecified Osteopenia, unspecified location VHD (valvular heart disease) Endocarditis, valve unspecified, unspecified cause Medicare annual wellness visit, subsequent- Primary Routine general medical examination at a health care facility Malignant neoplasm of right breast in female, estrogen receptor positive, unspecified site of breast (HCC) Encounter for immunization Need for other specified prophylactic vaccination against single bacterial disease Atherosclerosis of aorta (HCC) Atherosclerosis of aorta Stage 3a chronic kidney disease (HCC) Essential hypertension Unspecified essential hypertension Nonrheumatic aortic valve stenosis Aortic valve disorders Diastolic dysfunction Heart disease, unspecified documented in this encounter [facility] note* Diagnosis Pre-operative examination- Primary Preoperative examination, unspecified Malignant neoplasm of upper-outer quadrant of right breast in female, estrogen receptor positive (HCC) Essential hypertension Unspecified essential hypertension Pure hypercholesterolemia Gastroesophageal reflux disease, unspecified whether esophagitis present History of cerebral infarction Transient ischemic attack (TIA), and cerebral infarction without residual deficits Murmur, cardiac Undiagnosed cardiac murmurs MULTINODULAR GOITER (NONTOXIC) Nontoxic multinodular goiter Iron deficiency anemia, unspecified iron deficiency anemia type Anxiety state Anxiety state, unspecified Osteopenia, unspecified location VHD (valvular heart disease) Endocarditis, valve unspecified, unspecified cause Post herpetic neuralgia Herpes zoster with other nervous system complications [facility] Diagnosis Pre-operative examination- Primary Preoperative examination, unspecified Malignant neoplasm of upper-outer quadrant of right breast in female, estrogen receptor positive (HCC) Essential hypertension Unspecified essential hypertension Pure hypercholesterolemia Gastroesophageal reflux disease, unspecified whether esophagitis present History of cerebral infarction Transient ischemic attack (TIA), and cerebral infarction without residual deficits Murmur, cardiac Undiagnosed cardiac murmurs MULTINODULAR GOITER (NONTOXIC) Nontoxic multinodular goiter Iron deficiency anemia, unspecified iron deficiency anemia type Anxiety state Anxiety state, unspecified Osteopenia, unspecified location VHD (valvular heart disease) Endocarditis, valve unspecified, 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, estrogen receptor positive (HCC)- Primary documented in this encounter [facility] note* Diagnosis Pre-operative examination- Primary Preoperative examination, unspecified Malignant neoplasm of upper-outer quadrant of right breast in female, estrogen receptor positive (HCC) Essential hypertension Unspecified essential hypertension Pure hypercholesterolemia Gastroesophageal reflux disease, unspecified whether esophagitis present History of cerebral infarction Transient ischemic attack (TIA), and cerebral infarction without residual deficits Murmur, cardiac Undiagnosed cardiac murmurs MULTINODULAR GOITER (NONTOXIC) Nontoxic multinodular goiter Iron deficiency anemia, unspecified iron deficiency anemia type Anxiety state Anxiety state, unspecified Osteopenia, unspecified location VHD (valvular heart disease) Endocarditis, valve unspecified, unspecified cause Pure hypercholesterolemia documented in this encounter [facility] note* Diagnosis Pre-operative examination- Primary Preoperative examination, unspecified Malignant neoplasm of upper-outer quadrant of right breast in female, estrogen receptor positive (HCC) Essential hypertension Unspecified essential hypertension Pure hypercholesterolemia Gastroesophageal reflux disease, unspecified whether esophagitis present History of cerebral infarction Transient ischemic attack (TIA), and cerebral infarction without residual deficits Murmur, cardiac Undiagnosed cardiac murmurs MULTINODULAR GOITER (NONTOXIC) Nontoxic multinodular goiter Iron deficiency anemia, unspecified iron deficiency anemia type Anxiety state Anxiety state, unspecified Osteopenia, unspecified location VHD (valvular heart disease) Endocarditis, valve unspecified, 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, estrogen receptor positive (HCC)- Primary documented in this encounter [facility] note* Diagnosis Pre-operative examination- Primary Preoperative examination, unspecified Malignant neoplasm of upper-outer quadrant of right breast in female, estrogen receptor positive (HCC) Essential hypertension Unspecified essential hypertension Pure hypercholesterolemia Gastroesophageal reflux disease, unspecified whether esophagitis present History of cerebral infarction Transient ischemic attack (TIA), and cerebral infarction without residual deficits Murmur, cardiac Undiagnosed cardiac murmurs MULTINODULAR GOITER (NONTOXIC) Nontoxic multinodular goiter Iron deficiency anemia, unspecified iron deficiency anemia type Anxiety state Anxiety state, unspecified Osteopenia, unspecified location VHD (valvular heart disease) Endocarditis, valve unspecified, unspecified cause Atypical lobular hyperplasia (ALH) of left breast documented in this encounter [facility] note* Diagnosis Pre-operative examination- Primary Preoperative examination, unspecified Malignant neoplasm of upper-outer quadrant of right breast in female, estrogen receptor positive (HCC) Essential hypertension Unspecified essential hypertension Pure hypercholesterolemia Gastroesophageal reflux disease, unspecified whether esophagitis present History of cerebral infarction Transient ischemic attack (TIA), and cerebral infarction without residual deficits Murmur, cardiac Undiagnosed cardiac murmurs MULTINODULAR GOITER (NONTOXIC) Nontoxic multinodular goiter Iron deficiency anemia, unspecified iron deficiency anemia type Anxiety state Anxiety state, unspecified Osteopenia, unspecified location VHD (valvular heart disease) Endocarditis, valve unspecified, unspecified cause Malignant neoplasm of right breast in female, estrogen receptor positive, unspecified site of breast (HCC)- Primary documented in this encounter [facility] note* Diagnosis Pre-operative examination- Primary Preoperative examination, unspecified Malignant neoplasm of upper-outer quadrant of right breast in female, estrogen receptor positive (HCC) Essential hypertension Unspecified essential hypertension Pure hypercholesterolemia Gastroesophageal reflux disease, unspecified whether esophagitis present History of cerebral infarction Transient ischemic attack (TIA), and cerebral infarction without residual deficits Murmur, cardiac Undiagnosed cardiac murmurs MULTINODULAR GOITER (NONTOXIC) Nontoxic multinodular goiter Iron deficiency anemia, unspecified iron deficiency anemia type Anxiety state Anxiety state, unspecified Osteopenia, unspecified location VHD (valvular heart disease) Endocarditis, valve unspecified, unspecified cause Post herpetic neuralgia Herpes zoster with other nervous system complications documented in this encounter [facility] for referral (narrative)* Diagnostic Procedure Only (Routine) - Authorized Specialty Diagnoses / Procedures Referred By Lupe montanez Referred To Contact BR IMAG[facility] Diagnoses Breast cancer screening by mammogram Procedures VALERI SCREENING W ARMANDO SCREENING DIGITAL BREAST TOMOSYNTHESIS BI SCREENING MAMMOGRAPHY BI 2-VIEW BREAST INC Rmaandeep Baca MD [facility] [place] [address] [facility] [address] [place] [address] Referral ID Status Reason Start Date Expiration Date Visits Requested Visits Authorized [id number] Authorized Auto-Generat ed Referral 06/18/2021 07/18/2022 1 1 [facility] for referral (narrative)* Diagnostic Procedure Only (Routine) - Closed Specialty Diagnoses / Procedures Referred By Lupe montanez Referred To Contact BR IMAG[facility] Diagnoses Breast cancer screening by mammogram Procedures VALERI SCREENING W ARMANDO SCREENING DIGITAL BREAST TOMOSYNTHESIS BI SCREENING MAMMOGRAPHY BI 2-VIEW BREAST INC Ramandeep Baca MD [address] [place] [address] [facility] [address] [place] [address] Referral ID Status Reason Start Date Expiration Date V isits Requested Visits Authorized [id number] Closed Auto-Generate d Referral 06/18/2021 07/18/2022 1 1 [facility] for referral (narrative)* Diagnostic Procedure Only (Routine) - Authorized Specialty Diagnoses / Procedures Referred By Lupe montanez Referred To Contact MOLECULAR & FUNCTIONAL IMAGING Diagnoses Encounter for screening for cardiovascular disorders Procedures NM CARDIAC PERF STRESS/EXERCISE MYOCARDIAL SPECT MULTIPLE STUDIES Ramandeep Alvarez MD [address] [place] [address] Molecular & Functional Imaging [address] [place] [address] Referral ID Status Reason Start Date Expiration Date Visits Requested Visits Authorized [id number] Authorized Auto-Generat ed Referral 07/12/2021 08/11/2022 1 1 [facility] for referral (narrative)* Diagnostic Procedure Only (Routine) - Closed Specialty Diagnoses / Procedures Referred By Contac t Referred To Contact XR IMAGING Diagnoses Chronic left hip pain Procedures XR HIP GENERAL 3V PELV/AP/LAT LEFT RADEX HIP UNILATERAL WITH PELVIS 2-3 VIEWS Breanna Ortiz APRN.BASKET SORTER [address] [place] [address] Xr Imaging Referral ID Status Reason Start Date Expiration Date V isits Requested Visits Authorized [id number] Closed Auto-Generate d Referral 07/08/2022 08/07/2023 1 1 [facility] for referral (narrative)* Diagnostic Procedure Only (Routine) - Pending Review Specialty Diagnoses / Procedures Referred By Wendyac t Referred To Contact [facility] Diagnoses Encounter for screening mammogram for breast cancer Procedures VALERI SCREENING W ARMANDO SCREENING DIGITAL BREAST TOMOSYNTHESIS BI SCREENING MAMMOGRAPHY BI 2-VIEW BREAST INC Angélica Vernon APRN.FUNCTIONAL ARCHITECT [address] [place] [address] [facility] [address] [place] [address] Referral ID Status Reason Start Date Expiration Date Visits Requested Visits Authorized [id number] Pending Review Auto-Generat ed Referral 02/04/2024 1 1 * Diagnostic Procedure Only (Routine) - Pending Review Specialty Diagnoses / Procedures Referred By Contac t Referred To Contact [facility] IMAG[facility] Diagnoses Encounter for screening mammogram for breast cancer Procedures VALERI SCREENING SCREENING MAMMOGRAPHY BI 2-VIEW BREAST INC CAD Angélica Pulido APRN.FUNCTIONAL ARCHITECT [address] [place] [address] [facility] Imaging [address] [place] [address] Referral ID Status Reason Start Date Expiration Date Visits Requested Visits Authorized [id number] Pending Review Auto-Generat ed Referral 02/04/2024 1 1 [facility] for referral (narrative)* Diagnostic Procedure Only (Routine) - Authorized Specialty Diagnoses / Procedures Referred By Lupe t Referred To Contact XR IMAGING Diagnoses Encounter for screening for osteoporosis Asymptomatic postmenopausal status Procedures DXA-AXIAL SKELETON Angélica Pulido APRN.FUNCTIONAL ARCHITECT [address] [place] [address] [place] [address] Referral ID Status Reason Start Date Expiration Date Visits Requested Visits Authorized [id number] Authorized Auto-Generat ed Referral 07/11/2023 08/09/2024 1 1 [facility] for referral (narrative)* Diagnostic Procedure Only (Routine) - Pending Review Specialty Diagnoses / Procedures Referred By Lupe montanez Referred To Contact [facility] IM[facility] Diagnoses Abnormal mammogram of both breasts Procedures US BREAST LTD LEFT US BREAST UNI REAL TIME WITH IMAGE LIMITED Angélica Pulido APRN.FUNCTIONAL ARCHITECT [address] [place] [address] [facility] [address] [place] [address] Referral ID Status Reason Start Date Expiration Date Visits Requested Visits Authorized [id number] Pending Review Auto-Generat ed Referral 07/30/2023 08/28/2024 1 1 * Diagnostic Procedure Only (Routine) - Pending Review Specialty Diagnoses / Procedures Referred By Lupe t Referred To Contact [facility] IM[facility] Diagnoses Abnormal mammogram of both breasts Procedures US BREAST LTD RIGHT US BREAST UNI REAL TIME WITH IMAGE LIMITED Angélica Pulido APRN.FUNCTIONAL ARCHITECT [address] [place] [address] [facility] [address] [place] [address] Referral ID Status Reason Start Date Expiration Date Visits Requested Visits Authorized [id number] Pending Review Auto-Generat ed Referral 07/30/2023 08/28/2024 1 1 * Diagnostic Procedure Only (Routine) - Pending Review Specialty Diagnoses / Procedures Referred By Lupe montanez Referred To Contact BR IMAG[facility] Diagnoses Abnormal mammogram of both breasts Procedures VALERI DIAGNOSTIC BILATERAL DIAGNOSTIC MAMMOGRAPHY COMPUTER-AIDED DETCJ BI Angélica Pulido APRN.FUNCTIONAL ARCHITECT [address] [place] [address] [facility] [address] [place] [address] Referral ID Status Reason Start Date Expiration Date Visits Requested Visits Authorized [id number] Pending Review Auto-Generat ed Referral 07/30/2023 08/28/2024 1 1 [facility] for referral (narrative)* Diagnostic Procedure Only (Routine) - Closed Specialty Diagnoses / Procedures Referred By Lupe montanez Referred To Contact BR IMAGING Diagnoses Abnormal mammogram of both breasts Procedures US BREAST LTD LEFT US BREAST UNI REAL TIME WITH IMAGE LIMITED Angélica Pulido APRN.FUNCTIONAL ARCHITECT [address] [place] [address] [facility] [address] [place] [address] Referral ID Status Reason Start Date Expiration Date V isits Requested Visits Authorized [id number] Closed Auto-Generate d Referral 07/30/2023 08/28/2024 1 1 [facility] for referral (narrative)* Diagnostic Procedure Only (Routine) - Pending Review Specialty Diagnoses / Procedures Referred By Contac t Referred To Contact BR IMAGING Diagnoses Abnormal finding on breast imaging Procedures VALERI STEREO BX BREAST RIGHT BX BREAST W/DEVICE 1ST [facility] Riley Belcher MD [address] [address] [facility] [address] [place] [address] Referral ID Status Reason Start Date Expiration Date Visits Requested Visits Authorized [id number] Pending Review Auto-Generat ed Referral 08/29/2023 09/27/2024 1 1 [facility] for referral (narrative)* Diagnostic Procedure Only (Routine) - Pending Review Specialty Diagnoses / Procedures Referred By Lupe montanez Referred To Contact [facility] IMAG[facility] Diagnoses Abnormal mammogram Procedures VALERI STEREO BX BREAST RIGHT BX BREAST W/DEVICE 1ST [facility] Ayo Montelongo MD [address] [place] [address] [facility] [address] [place] [address] Referral ID Status Reason Start Date Expiration Date Visits Requested Visits Authorized [id number] Pending Review Auto-Generat ed Referral 09/04/2023 10/03/2024 1 1 [facility] for referral (narrative)* Diagnostic Procedure Only (Routine) - Closed Specialty Diagnoses / Procedures Referred By Lupe montanez Referred To Contact [facility] Diagnoses Abnormal mammogram Procedures VALERI STEREO BX BREAST RIGHT BX BREAST W/DEVICE 1ST [facility] Ayo Montelongo MD [address] [place] [address] [facility] [address] [place] [address] Referral ID Status Reason Start Date Expiration Date V isits Requested Visits Authorized [id number] Closed Auto-Generate d Referral 09/04/2023 10/03/2024 1 1 [facility] for referral (narrative)* Diagnostic Procedure Only (Routine) - Closed Specialty Diagnoses / Procedures [facility] To Contact [facility] Diagnoses Malignant neoplasm of upper-outer quadrant of right breast in female, estrogen receptor positive (HCC) Procedures US AXILLA ONLY RIGHT US LMTD JOINT/OTH NONVASC XTR STRUX R-T W/[place] [address] [place] [address] Br Imaging [address] [place] [id number] Referral ID Status Reason Start Date Expiration Date V isits Requested Visits Authorized [id number] Closed Auto-Generate d Referral 10/17/2023 11/15/2024 1 1 [facility] for referral (narrative)* Diagnostic Procedure Only (Routine) - Closed Specialty Diagnoses / Procedures [facility] Referred To Contact BR IMAG[facility] Diagnoses Malignant neoplasm of upper-outer quadrant of right breast in female, estrogen receptor positive (HCC) Procedures US AXILLA ONLY RIGHT US LMTD JOINT/OTH NONVASC XTR STRUX R-T W/[place] [address] [place] [address] Br Imaging [address] [place] [id number] Referral ID Status Reason Start Date Expiration Date V isits Requested Visits Authorized [id number] Closed Auto-Generate d Referral 10/17/2023 11/15/2024 1 1 [facility] for referral (narrative)* Diagnostic Procedure Only (Routine) - Closed Specialty Diagnoses / Procedures [facility] Ref[facility] To Contact [facility] Diagnoses Breast disorder Procedures US BREAST LTD LEFT US BREAST UNI REAL TIME WITH IMAGE LIMITED Chanel Pascual MD [address] [place] [address] [facility] [address] [place] [address] Referral ID Status Reason Start Date Expiration Date V isits Requested Visits Authorized [id number] Closed Auto-Generate d Referral 10/23/2023 11/21/2024 1 1 [facility] for referral (narrative)* Diagnostic Procedure Only (Routine) - New Request Specialty Diagnoses / Procedures Referred By Contac t Referred To Contact BR IMAGING Diagnoses Abnormal finding on breast imaging Procedures VALERI NDL LOC W VALERI GD LEFT PERQ DEVICE PLACEMENT BREAST LOC 1ST LES W/[place] [address] [place] [address] [facility] [address] [place] [address] Referral ID Status Reason Start Date Expiration Date Visits Requested Visits Authorized [id number] New Request Auto-Generat ed Referral 11/23/2023 12/22/2024 1 1 [facility] for referral (narrative)* Outpatient Procedure (Routine) - Authorized Specialty Diagnoses / Procedures Referred By Contac t Referred To Contact [facility] Diagnoses Pre-operative examination Procedures ECHO ECHO TTHRC R-T 2D W/WOM-MODE COMPL SPEC&COLR D Elizabeth Smith APRN.BASKET SORTER [address] [place] [address] [facility] [place] [place] [address] Referral ID Status Reason Start Date Expiration Date Visits Requested Visits Authorized [id number] Authorized Auto-Generat ed Referral 12/08/2023 12/07/2024 1 1 * Outpatient Procedure (Routine) - New Request Specialty Diagnoses / Procedures Referred By Contac t Referred To Contact [facility] Diagnoses Pre-operative examination Procedures ECG COMPLETE ECG ROUTINE ECG W/LEAST 12 LDS W/I&R Elizabeth Smith APRN.BASKET SORTER [address] [place] [address] [facility] [place] [address] [place] [address] Referral ID Status Reason Start Date Expiration Date Visits Requested Visits Authorized [id number] New Request Auto-Generat ed Referral 12/08/2023 12/07/2024 1 1 [facility] for referral (narrative)* Diagnostic Procedure Only (Routine) - Closed Specialty Diagnoses / Procedures Referred By Contac t Referred To Contact XR IMAGING Diagnoses Chronic left hip pain Procedures XR HIP GENERAL 3V PELV/AP/LAT LEFT RADEX HIP UNILATERAL WITH PELVIS 2-3 VIEWS Breanna Ortiz APRN.CNP [address] [place] [address] [place] [address] Referral ID Status Reason Start Date Expiration Date V isits Requested Visits Authorized [id number] Closed Auto-Generate d Referral 07/08/2022 08/07/2023 1 1 [facility] for referral (narrative)* Diagnostic Procedure Only (Routine) - Authorized Specialty Diagnoses / Procedures Referred By Contac t Referred To Contact BR IMAGING Diagnoses Breast disorder Procedures US BREAST LTD LEFT US BREAST UNI REAL TIME WITH IMAGE LIMITED Chanel Pascual MD [address] [place] [address] Br Imaging [address] [place] [address] Referral ID Status Reason Start Date Expiration Date Visits Requested Visits Authorized [id number] Authorized Auto-Generat ed Referral 10/23/2023 11/21/2024 1 1 [facility] for visit Narrative* Diagnostic Procedure Only (Routine) - Closed Specialty Diagnoses / Procedures Referred By Contac t Referred To Contact BR IMAGING Diagnoses Breast cancer screening by mammogram Procedures VALERI SCREENING W ARMANDO SCREENING DIGITAL BREAST TOMOSYNTHESIS BI SCREENING MAMMOGRAPHY BI 2-VIEW BREAST INC Ramandeep Baca MD [address] [place] [address] [facility] [address] [place] [address] Referral ID Status Reason Start Date Expiration Date V isits Requested Visits Authorized [id number] Closed Auto-Generate d Referral 06/18/2021 07/18/2022 1 1 [facility] for visit Narrative* Diagnostic Procedure Only (Routine) - Closed Specialty Diagnoses / Procedures Referred By Contac t Referred To Contact MOLECULAR & FUNCTIONAL IMAGING Diagnoses Encounter for screening for cardiovascular disorders Procedures NM CARDIAC PERF STRESS/EXERCISE MYOCARDIAL SPECT MULTIPLE STUDIES Ramandeep Alvarez MD [address] [place] [address] Molecular & Functional Imaging [address] [place] [address] Referral ID Status Reason Start Date Expiration Date V isits Requested Visits Authorized [id number] Closed Auto-Generate d Referral 07/12/2021 08/11/2022 1 1 [facility] for visit Narrative* Diagnostic Procedure Only (Routine) - Closed Specialty Diagnoses / Procedures Referred By Contac t Referred To Contact XR IMAGING Diagnoses Encounter for screening for osteoporosis Asymptomatic postmenopausal status Procedures DXA-AXIAL SKELETON Angélica Pulido, BELLMAN.FUNCTIONAL ARCHITECT [address] [place] [address] [place] [address] Referral ID Status Reason Start Date Expiration Date V isits Requested Visits Authorized [id number] Closed Auto-Generate d Referral 07/11/2023 08/09/2024 1 1 [facility] for visit Narrative* Diagnostic Procedure Only (Routine) - Closed Specialty Diagnoses / Procedures Referred By Contac t Referred To Contact BR IMAGING Diagnoses Encounter for screening mammogram for breast cancer Procedures VALERI SCREENING SCREENING MAMMOGRAPHY BI 2-VIEW BREAST INC CAD Angélica Pulido, BELLMAN.FUNCTIONAL ARCHITECT [address] [place] [address] [facility] [address] [place] [address] Referral ID Status Reason Start Date Expiration Date V isits Requested Visits Authorized [id number] Closed Auto-Generate d Referral 01/05/2023 02/04/2024 1 1 [facility] for visit Narrative* Diagnostic Procedure Only (Routine) - Closed Specialty Diagnoses / Procedures Referred By Contac t Referred To Contact BR IMAGING Diagnoses Abnormal mammogram of both breasts Procedures VALERI DIAGNOSTIC BILATERAL DIAGNOSTIC MAMMOGRAPHY COMPUTER-AIDED DETCJ BI Angélica Pulido, BELLMAN.FUNCTIONAL ARCHITECT [address] [place] [address] [facility] [address] [place] [address] Referral ID Status Reason Start Date Expiration Date V isits Requested Visits Authorized [id number] Closed Auto-Generate d Referral 07/30/2023 08/28/2024 1 1 [facility] for visit Narrative* Diagnostic Procedure Only (Routine) - Closed Specialty Diagnoses / Procedures Referred By Contac t Referred To Contact BR IMAGING Diagnoses Abnormal ultrasound of breast Procedures US BIOPSY BREAST LEFT BX BREAST W/DEVICE 1ST LESION ULTRASOUND GUID Kisha Saba MD [address] [place] [address] [facility] [address] [place] [address] Referral ID Status Reason Start Date Expiration Date V isits Requested Visits Authorized [id number] Closed Auto-Generate d Referral 10/27/2023 11/25/2024 1 1 [facility] for visit Narrative* Diagnostic Procedure Only (Routine) - Closed Specialty Diagnoses / Procedures Referred By Contac t Referred To Contact BR IMAGING Diagnoses Abnormal finding on breast imaging Procedures VALERI NDL LOC W VALERI GD LEFT PERQ DEVICE PLACEMENT BREAST LOC 1ST LES W/[place] [address] [place] [address] [facility] [address] [place] [address] Referral ID Status Reason Start Date Expiration Date V isits Requested Visits Authorized [id number] Closed Auto-Generate d Referral 11/23/2023 12/22/2024 1 1 [facility] for visit Narrative* Diagnostic Procedure Only (Routine) - Closed Specialty Diagnoses / Procedures Referred By Contac t Referred To Contact XR IMAGING Diagnoses Chronic left hip pain Procedures XR HIP GENERAL 3V PELV/AP/LAT LEFT RADEX HIP UNILATERAL WITH PELVIS 2-3 VIEWS Breanna Ortiz APRN.BASKET SORTER [address] [place] [address] [place] [address] Referral ID Status Reason Start Date Expiration Date V isits Requested Visits Authorized [id number] Closed Auto-Generate d Referral 07/08/2022 08/07/2023 [facility] Diagnostic Procedure Only (Routine) - Closed Specialty Diagnoses / Procedures Referred By Lupe montanez Referred To Contact BR IMAGING Diagnoses Atypical lobular hyperplasia (ALH) of left breast Procedures VALERI SCREENING W ARMANDO SCREENING DIGITAL BREAST TOMOSYNTHESIS BI SCREENING MAMMOGRAPHY BI 2-VIEW BREAST INC CAD Susan Carrero, CHARO.BASKET SORTER [address] [place] [address] Phone: tel: fax: [facility] [address] [place] [address] Referral ID Status Reason Start Date Expiration Date V isits Requested Visits Authorized [id number] Closed Auto-Generate d Referral 04/04/2024 05/04/2025 1 1 [facility] Advance Directives Documents on File Type Date 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 Advance Directive(s) Advance Directive(s) 06/27/2017 12:42 PM Documents on File Type Date 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 Advance 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) Advance Directive(s) 06/27/2017 12:42 PM Reason for Referral Specialty Diagnoses / Procedures Referred By Lupe montanez Referred To Contact CT IMAGING Diagnoses Back pain, unspecified back location, unspecified back pain laterality, unspecified chronicity Chest pain, unspecified type Elevated d-dimer Procedures CT CHEST W IVCON PE DIAGNOSTIC COMPUTED TOMOGRAPHY THORAX W/CONTRAST Breanna Ortiz APRN.BASKET SORTER [address] [place] [address] Ct Imaging Referral ID Status Reason Start Date Expiration Date Visits Requested Visits Authorized [id number] Authorized Auto-Generat ed Referral 07/08/2021 08/07/2022 1 1 Referral ID Status Reason Start Date Expiration Date V isits Requested Visits Authorized [id number] Closed Auto-Generate d Referral 07/08/2021 08/07/2022 1 1 Specialty Diagnoses / Procedures Referred By Contac t Referred To Contact Orthopedics Diagnoses Chronic left hip pain Procedures CONSULT TO ORTHOPAEDICS OFFICE/OUTPATIENT NEW HIGH MDM 60-74 MINUTES Breanna Ortiz APRN.BASKET SORTER [address] [place] [address] Referral ID Status Reason Start Date Expiration Date Visits Requested Visits Authorized [id number] Pending Review PCP Requested Referral 07/11/2022 07/11/2023 1 1 Specialty Diagnoses / Procedures Referred By Contac t Referred To Contact [facility] Diagnoses Chronic left hip pain Procedures CONSULT TO PHYSICAL THERAPY PHYSICAL THERAPY EVALUATION HIGH COMPLEX 45 MINS THERAPEUTIC EXERCISES RE, EA 15 MIN. Breanna Ortiz APRN.BASKET SORTER [address] [place] [address] [facility] [address] [address] Referral ID Status Reason Start Date Expiration Date Visits Requested Visits Authorized [id number] Authorized Auto-Generat ed Referral 03/27/2022 03/26/2023 20 20 Specialty Diagnoses / Procedures Referred By Contac t Referred To Contact [facility] Diagnoses Chronic left hip pain Pain of left hip joint Procedures PT REHAB FOLLOW UP ORDER THERAPEUTIC EXERCISES RE, EA 15 MIN. Pt [facility] [address] [place] [address] [facility] [address] [address] Referral ID Status Reason Start Date Expiration Date Visits Requested Visits Authorized [id number] Pending Review PCP Requested Referral Auto-Generate d Referral 07/19/2022 10/17/2022 1 1 Specialty Diagnoses / Procedures Referred By Contac t Referred To Contact Radiation Oncology Diagnoses Malignant neoplasm of upper-outer quadrant of right breast in female, estrogen receptor positive (HCC) Procedures RAD/ONC CONSULT OFFICE/OUTPATIENT NEW [facility] M[place] [address] [place] [address] [facility] [place] [address] Referral ID Status Reason Start Date Expiration Date Visits Requested Visits Authorized [id number] Authorized PCP Requested Referral 10/12/2023 10/11/2024 1 1 Specialty Diagnoses / Procedures Referred By Contac t Referred To Contact Diagnoses Malignant neoplasm of upper-outer quadrant of right breast in female, estrogen receptor positive (HCC) Procedures CONSULT TO HEMATOLOGY/ONCOLOGY OFFICE/OUTPATIENT [facility] [address] [place] [address] [place] [address] Referral ID Status Reason Start Date Expiration Date Visits Requested Visits Authorized [id number] Authorized PCP Requested Referral 10/12/2023 10/11/2024 1 1 Specialty Diagnoses / Procedures Referred By Contac t Referred To Contact MR IMAGING Diagnoses Malignant neoplasm of upper-outer quadrant of right breast in female, estrogen receptor positive (HCC) Procedures MRI BREAST WO/W IVCON BILATERAL MRI BREAST WITHOUT&WITH CONTRAST W/[place] [address] [place] [address] Mr [facility] [place] [address] Referral ID Status Reason Start Date Expiration Date Visits Requested Visits Authorized [id number] Authorized Auto-Generat ed Referral 10/12/2023 11/10/2024 1 1 Specialty Diagnoses / Procedures Referred By Contac t Referred To Contact MR IMAGING Diagnoses Abnormal ultrasound of breast Procedures MRI CLIP PLACEMENT BREAST LEFT PERQ BREAST LOC DEVICE PLACEMT 1ST LESIO MR GUID Kisha Saba MD [address] [place] [address] Mr Imaging [place] [address] Referral ID Status Reason Start Date Expiration Date V isits Requested Visits Authorized [id number] Closed Auto-Generate d Referral 10/27/2023 11/25/2024 1 1 Specialty Diagnoses / Procedures Referred By Contac t Referred To Contact MR IMAGING Diagnoses Abnormal MRI, breast Procedures MRI BREAST BX WO/W IVCON LEFT BX BREAST W/DEVICE 1ST LESION MAGNETIC RES GUID Mo Medina MD [address] [place] [id number] Mr [facility] Referral ID Status Reason Start Date Expiration Date Visits Requested Visits Authorized [id number] Authorized Auto-Generat ed Referral 11/07/2023 12/06/2024 1 1 Referral ID Status Reason Start Date Expiration Date V isits Requested Visits Authorized [id number] Closed Auto-Generate d Referral 11/07/2023 12/06/2024 1 1 Summary Purpose Family History No Family History Records FoundNo Family History Records FoundNo Family History Records FoundNo Family History Records Found Additional Source Comments Source Comments (unrecognize d section and content) In the event this informatio n is protected by the Federal Confidentiality of Alcohol and Drug Abuse Patient Records regulations: The Federal rules restrict any use of the information to criminally investigate or prosecute any alcohol or drug abuse patient.[facility] the event this information is protected by the Federal Confidentiality of Alcohol and Drug Abuse Patient Records regulations: The Federal rules restrict any use of the information to criminally investigate or prosecute any alcohol or drug abuse patient.[facility] the event this information is protected by the Federal Confidentiality of Alcohol and Drug Abuse Patient Records regulations: The Federal rules restrict any use of the information to criminally investigate or prosecute any alcohol or drug abuse patient.[facility] the event this information is protected by the Federal Confidentiality of Alcohol and Drug Abuse Patient Records regulations: The Federal rules restrict any use of the information to criminally investigate or prosecute any alcohol or drug abuse patient.[facility]In the event this information is protected by the Federal Confidentiality of Alcohol and Drug Abuse Patient Records regulations: The Federal rules restrict any use of the information to criminally investigate or prosecute any alcohol or drug abuse patient.[facility] HospitalIn the event this information is protected by the Federal Confidentiality of Alcohol and Drug Abuse Patient Records regulations: The Federal rules restrict any use of the information to criminally investigate or prosecute any alcohol or drug abuse patient.[facility] HospitalIn the event this information is protected by the Federal Confidentiality of Alcohol and Drug Abuse Patient Records regulations: The Federal rules restrict any use of the information to criminally investigate or prosecute any alcohol or drug abuse patient.[facility] HospitalIn the event this information is protected by the Federal Confidentiality of Alcohol and Drug Abuse Patient Records regulations: The Federal rules restrict any use of the information to criminally investigate or prosecute any alcohol or drug abuse patient.[facility] HospitalIn the event this information is protected by the Federal Confidentiality of Alcohol and Drug Abuse Patient Records regulations: The Federal rules restrict any use of the information to criminally investigate or prosecute any alcohol or drug abuse patient.[facility] HospitalIn the event this information is protected by the Federal Confidentiality of Alcohol and Drug Abuse Patient Records regulations: The Federal rules restrict any use of the information to criminally investigate or prosecute any alcohol or drug abuse patient.[facility] HospitalIn the event this information is protected by the Federal Confidentiality of Alcohol and Drug Abuse Patient Records regulations: The Federal rules restrict any use of the information to criminally investigate or prosecute any alcohol or drug abuse patient.[facility] HospitalIn the event this information is protected by the Federal Confidentiality of Alcohol and Drug Abuse Patient Records regulations: The Federal rules restrict any use of the information to criminally investigate or prosecute any alcohol or drug abuse patient.[facility] HospitalIn the event this information is protected by the Federal Confidentiality of Alcohol and Drug Abuse Patient Records regulations: The Federal rules restrict any use of the information to criminally investigate or prosecute any alcohol or drug abuse patient.[facility] HospitalIn the event this information is protected by the Federal Confidentiality of Alcohol and Drug Abuse Patient Records regulations: The Federal rules restrict any use of the information to criminally investigate or prosecute any alcohol or drug abuse patient.[facility] HospitalIn the event this information is protected by the Federal Confidentiality of Alcohol and Drug Abuse Patient Records regulations: The Federal rules restrict any use of the information to criminally investigate or prosecute any alcohol or drug abuse patient.[facility] HospitalIn the event this information is protected by the Federal Confidentiality of Alcohol and Drug Abuse Patient Records regulations: The Federal rules restrict any use of the information to criminally investigate or prosecute any alcohol or drug abuse patient.[facility] HospitalIn the event this information is protected by the Federal Confidentiality of Alcohol and Drug Abuse Patient Records regulations: The Federal rules restrict any use of the information to criminally investigate or prosecute any alcohol or drug abuse patient.[facility] HospitalIn the event this information is protected by the Federal Confidentiality of Alcohol and Drug Abuse Patient Records regulations: The Federal rules restrict any use of the information to criminally investigate or prosecute any alcohol or drug abuse patient.[facility] HospitalIn the event this information is protected by the Federal Confidentiality of Alcohol and Drug Abuse Patient Records regulations: The Federal rules restrict any use of the information to criminally investigate or prosecute any alcohol or drug abuse patient.[facility] HospitalIn the event this information is protected by the Federal Confidentiality of Alcohol and Drug Abuse Patient Records regulations: The Federal rules restrict any use of the information to criminally investigate or prosecute any alcohol or drug abuse patient.[facility] HospitalIn the event this information is protected by the Federal Confidentiality of Alcohol and Drug Abuse Patient Records regulations: The Federal rules restrict any use of the information to criminally investigate or prosecute any alcohol or drug abuse patient.[facility] HospitalIn the event this information is protected by the Federal Confidentiality of Alcohol and Drug Abuse Patient Records regulations: The Federal rules restrict any use of the information to criminally investigate or prosecute any alcohol or drug abuse patient.[facility] HospitalIn the event this information is protected by the Federal Confidentiality of Alcohol and Drug Abuse Patient Records regulations: The Federal rules restrict any use of the information to criminally investigate or prosecute any alcohol or drug abuse patient.[facility] HospitalIn the event this information is protected by the Federal Confidentiality of Alcohol and Drug Abuse Patient Records regulations: The Federal rules restrict any use of the information to criminally investigate or prosecute any alcohol or drug abuse patient.[facility] HospitalIn the event this information is protected by the Federal Confidentiality of Alcohol and Drug Abuse Patient Records regulations: The Federal rules restrict any use of the information to criminally investigate or prosecute any alcohol or drug abuse patient.[facility] HospitalIn the event this information is protected by the Federal Confidentiality of Alcohol and Drug Abuse Patient Records regulations: The Federal rules restrict any use of the information to criminally investigate or prosecute any alcohol or drug abuse patient.[facility] HospitalIn the event this information is protected by the Federal Confidentiality of Alcohol and Drug Abuse Patient Records regulations: The Federal rules restrict any use of the information to criminally investigate or prosecute any alcohol or drug abuse patient.[facility] HospitalIn the event this information is protected by the Federal Confidentiality of Alcohol and Drug Abuse Patient Records regulations: The Federal rules restrict any use of the information to criminally investigate or prosecute any alcohol or drug abuse patient.[facility] HospitalIn the event this information is protected by the Federal Confidentiality of Alcohol and Drug Abuse Patient Records regulations: The Federal rules restrict any use of the information to criminally investigate or prosecute any alcohol or drug abuse patient.[facility] HospitalIn the event this information is protected by the Federal Confidentiality of Alcohol and Drug Abuse Patient Records regulations: The Federal rules restrict any use of the information to criminally investigate or prosecute any alcohol or drug abuse patient.[facility] HospitalIn the event this information is protected by the Federal Confidentiality of Alcohol and Drug Abuse Patient Records regulations: The Federal rules restrict any use of the information to criminally investigate or prosecute any alcohol or drug abuse patient.[facility] HospitalIn the event this information is protected by the Federal Confidentiality of Alcohol and Drug Abuse Patient Records regulations: The Federal rules restrict any use of the information to criminally investigate or prosecute any alcohol or drug abuse patient.[facility] HospitalIn the event this information is protected by the Federal Confidentiality of Alcohol and Drug Abuse Patient Records regulations: The Federal rules restrict any use of the information to criminally investigate or prosecute any alcohol or drug abuse patient.[facility] HospitalIn the event this information is protected by the Federal Confidentiality of Alcohol and Drug Abuse Patient Records regulations: The Federal rules restrict any use of the information to criminally investigate or prosecute any alcohol or drug abuse patient.[facility] HospitalIn the event this information is protected by the Federal Confidentiality of Alcohol and Drug Abuse Patient Records regulations: The Federal rules restrict any use of the information to criminally investigate or prosecute any alcohol or drug abuse patient.[facility] HospitalIn the event this information is protected by the Federal Confidentiality of Alcohol and Drug Abuse Patient Records regulations: The Federal rules restrict any use of the information to criminally investigate or prosecute any alcohol or drug abuse patient.[facility] HospitalIn the event this information is protected by the Federal Confidentiality of Alcohol and Drug Abuse Patient Records regulations: The Federal rules restrict any use of the information to criminally investigate or prosecute any alcohol or drug abuse patient.[facility] HospitalIn the event this information is protected by the Federal Confidentiality of Alcohol and Drug Abuse Patient Records regulations: The Federal rules restrict any use of the information to criminally investigate or prosecute any alcohol or drug abuse patient.[facility] HospitalIn the event this information is protected by the Federal Confidentiality of Alcohol and Drug Abuse Patient Records regulations: The Federal rules restrict any use of the information to criminally investigate or prosecute any alcohol or drug abuse patient.[facility] HospitalIn the event this information is protected by the Federal Confidentiality of Alcohol and Drug Abuse Patient Records regulations: The Federal rules restrict any use of the information to criminally investigate or prosecute any alcohol or drug abuse patient.[facility] HospitalIn the event this information is protected by the Federal Confidentiality of Alcohol and Drug Abuse Patient Records regulations: The Federal rules restrict any use of the information to criminally investigate or prosecute any alcohol or drug abuse patient.[facility] HospitalIn the event this information is protected by the Federal Confidentiality of Alcohol and Drug Abuse Patient Records regulations: The Federal rules restrict any use of the information to criminally investigate or prosecute any alcohol or drug abuse patient.[facility] HospitalIn the event this information is protected by the Federal Confidentiality of Alcohol and Drug Abuse Patient Records regulations: The Federal rules restrict any use of the information to criminally investigate or prosecute any alcohol or drug abuse patient.[facility] HospitalIn the event this information is protected by the Federal Confidentiality of Alcohol and Drug Abuse Patient Records regulations: The Federal rules restrict any use of the information to criminally investigate or prosecute any alcohol or drug abuse patient.[facility] HospitalIn the event this information is protected by the Federal Confidentiality of Alcohol and Drug Abuse Patient Records regulations: The Federal rules restrict any use of the information to criminally investigate or prosecute any alcohol or drug abuse patient.[facility] HospitalIn the event this information is protected by the Federal Confidentiality of Alcohol and Drug Abuse Patient Records regulations: The Federal rules restrict any use of the information to criminally investigate or prosecute any alcohol or drug abuse patient.[facility] HospitalIn the event this information is protected by the Federal Confidentiality of Alcohol and Drug Abuse Patient Records regulations: The Federal rules restrict any use of the information to criminally investigate or prosecute any alcohol or drug abuse patient.[facility] HospitalIn the event this information is protected by the Federal Confidentiality of Alcohol and Drug Abuse Patient Records regulations: The Federal rules restrict any use of the information to criminally investigate or prosecute any alcohol or drug abuse patient.[facility] HospitalIn the event this information is protected by the Federal Confidentiality of Alcohol and Drug Abuse Patient Records regulations: The Federal rules restrict any use of the information to criminally investigate or prosecute any alcohol or drug abuse patient.[facility] HospitalIn the event this information is protected by the Federal Confidentiality of Alcohol and Drug Abuse Patient Records regulations: The Federal rules restrict any use of the information to criminally investigate or prosecute any alcohol or drug abuse patient.[facility] HospitalIn the event this information is protected by the Federal Confidentiality of Alcohol and Drug Abuse Patient Records regulations: The Federal rules restrict any use of the information to criminally investigate or prosecute any alcohol or drug abuse patient.[facility] HospitalIn the event this information is protected by the Federal Confidentiality of Alcohol and Drug Abuse Patient Records regulations: The Federal rules restrict any use of the information to criminally investigate or prosecute any alcohol or drug abuse patient.[facility] HospitalIn the event this information is protected by the Federal Confidentiality of Alcohol and Drug Abuse Patient Records regulations: The Federal rules restrict any use of the information to criminally investigate or prosecute any alcohol or drug abuse patient.[facility] HospitalIn the event this information is protected by the Federal Confidentiality of Alcohol and Drug Abuse Patient Records regulations: The Federal rules restrict any use of the information to criminally investigate or prosecute any alcohol or drug abuse patient.[facility] HospitalIn the event this information is protected by the Federal Confidentiality of Alcohol and Drug Abuse Patient Records regulations: The Federal rules restrict any use of the information to criminally investigate or prosecute any alcohol or drug abuse patient.[facility] HospitalIn the event this information is protected by the Federal Confidentiality of Alcohol and Drug Abuse Patient Records regulations: The Federal rules restrict any use of the information to criminally investigate or prosecute any alcohol or drug abuse patient.[facility] HospitalIn the event this information is protected by the Federal Confidentiality of Alcohol and Drug Abuse Patient Records regulations: The Federal rules restrict any use of the information to criminally investigate or prosecute any alcohol or drug abuse patient.[facility] HospitalIn the event this information is protected by the Federal Confidentiality of Alcohol and Drug Abuse Patient Records regulations: The Federal rules restrict any use of the information to criminally investigate or prosecute any alcohol or drug abuse patient.[facility] HospitalIn the event this information is protected by the Federal Confidentiality of Alcohol and Drug Abuse Patient Records regulations: The Federal rules restrict any use of the information to criminally investigate or prosecute any alcohol or drug abuse patient.[facility] HospitalIn the event this information is protected by the Federal Confidentiality of Alcohol and Drug Abuse Patient Records regulations: The Federal rules restrict any use of the information to criminally investigate or prosecute any alcohol or drug abuse patient.[facility] HospitalIn the event this information is protected by the Federal Confidentiality of Alcohol and Drug Abuse Patient Records regulations: The Federal rules restrict any use of the information to criminally investigate or prosecute any alcohol or drug abuse patient.[facility] HospitalIn the event this information is protected by the Federal Confidentiality of Alcohol and Drug Abuse Patient Records regulations: The Federal rules restrict any use of the information to criminally investigate or prosecute any alcohol or drug abuse patient.[facility] HospitalIn the event this information is protected by the Federal Confidentiality of Alcohol and Drug Abuse Patient Records regulations: The Federal rules restrict any use of the information to criminally investigate or prosecute any alcohol or drug abuse patient.[facility] HospitalIn the event this information is protected by the Federal Confidentiality of Alcohol and Drug Abuse Patient Records regulations: The Federal rules restrict any use of the information to criminally investigate or prosecute any alcohol or drug abuse patient.[facility] HospitalIn the event this information is protected by the Federal Confidentiality of Alcohol and Drug Abuse Patient Records regulations: The Federal rules restrict any use of the information to criminally investigate or prosecute any alcohol or drug abuse patient.[facility] HospitalIn the event this information is protected by the Federal Confidentiality of Alcohol and Drug Abuse Patient Records regulations: The Federal rules restrict any use of the information to criminally investigate or prosecute any alcohol or drug abuse patient.[facility] HospitalIn the event this information is protected by the Federal Confidentiality of Alcohol and Drug Abuse Patient Records regulations: The Federal rules restrict any use of the information to criminally investigate or prosecute any alcohol or drug abuse patient.[facility] HospitalIn the event this information is protected by the Federal Confidentiality of Alcohol and Drug Abuse Patient Records regulations: The Federal rules restrict any use of the information to criminally investigate or prosecute any alcohol or drug abuse patient.[facility] HospitalIn the event this information is protected by the Federal Confidentiality of Alcohol and Drug Abuse Patient Records regulations: The Federal rules restrict any use of the information to criminally investigate or prosecute any alcohol or drug abuse patient.[facility] HospitalIn the event this information is protected by the Federal Confidentiality of Alcohol and Drug Abuse Patient Records regulations: The Federal rules restrict any use of the information to criminally investigate or prosecute any alcohol or drug abuse patient.[facility] HospitalIn the event this information is protected by the Federal Confidentiality of Alcohol and Drug Abuse Patient Records regulations: The Federal rules restrict any use of the information to criminally investigate or prosecute any alcohol or drug abuse patient.[facility] HospitalIn the event this information is protected by the Federal Confidentiality of Alcohol and Drug Abuse Patient Records regulations: The Federal rules restrict any use of the information to criminally investigate or prosecute any alcohol or drug abuse patient.[facility] HospitalIn the event this information is protected by the Federal Confidentiality of Alcohol and Drug Abuse Patient Records regulations: The Federal rules restrict any use of the information to criminally investigate or prosecute any alcohol or drug abuse patient.[facility] HospitalIn the event this information is protected by the Federal Confidentiality of Alcohol and Drug Abuse Patient Records regulations: The Federal rules restrict any use of the information to criminally investigate or prosecute any alcohol or drug abuse patient.[facility] HospitalIn the event this information is protected by the Federal Confidentiality of Alcohol and Drug Abuse Patient Records regulations: The Federal rules restrict any use of the information to criminally investigate or prosecute any alcohol or drug abuse patient.[facility] HospitalIn the event this information is protected by the Federal Confidentiality of Alcohol and Drug Abuse Patient Records regulations: The Federal rules restrict any use of the information to criminally investigate or prosecute any alcohol or drug abuse patient.[facility] HospitalIn the event this information is protected by the Federal Confidentiality of Alcohol and Drug Abuse Patient Records regulations: The Federal rules restrict any use of the information to criminally investigate or prosecute any alcohol or drug abuse patient.[facility] HospitalIn the event this information is protected by the Federal Confidentiality of Alcohol and Drug Abuse Patient Records regulations: The Federal rules restrict any use of the information to criminally investigate or prosecute any alcohol or drug abuse patient.[facility] HospitalIn the event this information is protected by the Federal Confidentiality of Alcohol and Drug Abuse Patient Records regulations: The Federal rules restrict any use of the information to criminally investigate or prosecute any alcohol or drug abuse patient.[facility] HospitalIn the event this information is protected by the Federal Confidentiality of Alcohol and Drug Abuse Patient Records regulations: The Federal rules restrict any use of the information to criminally investigate or prosecute any alcohol or drug abuse patient.[facility] HospitalIn the event this information is protected by the Federal Confidentiality of Alcohol and Drug Abuse Patient Records regulations: The Federal rules restrict any use of the information to criminally investigate or prosecute any alcohol or drug abuse patient.[facility] HospitalIn the event this information is protected by the Federal Confidentiality of Alcohol and Drug Abuse Patient Records regulations: The Federal rules restrict any use of the information to criminally investigate or prosecute any alcohol or drug abuse patient.[facility] HospitalIn the event this information is protected by the Federal Confidentiality of Alcohol and Drug Abuse Patient Records regulations: The Federal rules restrict any use of the information to criminally investigate or prosecute any alcohol or drug abuse patient.[facility] HospitalIn the event this information is protected by the Federal Confidentiality of Alcohol and Drug Abuse Patient Records regulations: The Federal rules restrict any use of the information to criminally investigate or prosecute any alcohol or drug abuse patient.[facility] HospitalIn the event this information is protected by the Federal Confidentiality of Alcohol and Drug Abuse Patient Records regulations: The Federal rules restrict any use of the information to criminally investigate or prosecute any alcohol or drug abuse patient.[facility] HospitalIn the event this information is protected by the Federal Confidentiality of Alcohol and Drug Abuse Patient Records regulations: The Federal rules restrict any use of the information to criminally investigate or prosecute any alcohol or drug abuse patient.[facility] HospitalIn the event this information is protected by the Federal Confidentiality of Alcohol and Drug Abuse Patient Records regulations: The Federal rules restrict any use of the information to criminally investigate or prosecute any alcohol or drug abuse patient.[facility] HospitalIn the event this information is protected by the Federal Confidentiality of Alcohol and Drug Abuse Patient Records regulations: The Federal rules restrict any use of the information to criminally investigate or prosecute any alcohol or drug abuse patient.[facility] HospitalIn the event this information is protected by the Federal Confidentiality of Alcohol and Drug Abuse Patient Records regulations: The Federal rules restrict any use of the information to criminally investigate or prosecute any alcohol or drug abuse patient.[facility] HospitalIn the event this information is protected by the Federal Confidentiality of Alcohol and Drug Abuse Patient Records regulations: The Federal rules restrict any use of the information to criminally investigate or prosecute any alcohol or drug abuse patient.[facility] HospitalIn the event this information is protected by the Federal Confidentiality of Alcohol and Drug Abuse Patient Records regulations: The Federal rules restrict any use of the information to criminally investigate or prosecute any alcohol or drug abuse patient.[facility] HospitalIn the event this information is protected by the Federal Confidentiality of Alcohol and Drug Abuse Patient Records regulations: The Federal rules restrict any use of the information to criminally investigate or prosecute any alcohol or drug abuse patient.[facility] HospitalIn the event this information is protected by the Federal Confidentiality of Alcohol and Drug Abuse Patient Records regulations: The Federal rules restrict any use of the information to criminally investigate or prosecute any alcohol or drug abuse patient.[facility] HospitalIn the event this information is protected by the Federal Confidentiality of Alcohol and Drug Abuse Patient Records regulations: The Federal rules restrict any use of the information to criminally investigate or prosecute any alcohol or drug abuse patient.[facility] HospitalIn the event this information is protected by the Federal Confidentiality of Alcohol and Drug Abuse Patient Records regulations: The Federal rules restrict any use of the information to criminally investigate or prosecute any alcohol or drug abuse patient.[facility] HospitalIn the event this information is protected by the Federal Confidentiality of Alcohol and Drug Abuse Patient Records regulations: The Federal rules restrict any use of the information to criminally investigate or prosecute any alcohol or drug abuse patient.[facility] HospitalIn the event this information is protected by the Federal Confidentiality of Alcohol and Drug Abuse Patient Records regulations: The Federal rules restrict any use of the information to criminally investigate or prosecute any alcohol or drug abuse patient.[facility] HospitalIn the event this information is protected by the Federal Confidentiality of Alcohol and Drug Abuse Patient Records regulations: The Federal rules restrict any use of the information to criminally investigate or prosecute any alcohol or drug abuse patient.[facility] HospitalIn the event this information is protected by the Federal Confidentiality of Alcohol and Drug Abuse Patient Records regulations: The Federal rules restrict any use of the information to criminally investigate or prosecute any alcohol or drug abuse patient.[facility] Reason for Visit (unrecogniz ed section and content) Reason Comments Established Patient physical Reason Comments Patient Request Reason Comments Results Reason Comments Fax requested Reason Comments Results Reason Comments Radiology CT Specialty Diagnoses / Procedures Referred By Contac t Referred To Contact CT IMAGING Diagnoses Back pain, unspecified back location, unspecified back pain laterality, unspecified chronicity Chest pain, unspecified type Elevated d-dimer Procedures CT CHEST W IVCON PE DIAGNOSTIC COMPUTED TOMOGRAPHY THORAX W/CONTRAST Breanna Ortiz APRN.BASKET SORTER [address] [place] [address] Ct Imaging Referral ID Status Reason Start Date Expiration Date V isits Requested Visits Authorized [id number] Closed Auto-Generate d Referral 07/08/2021 08/07/2022 1 1 Reason Comments Patient Update Reason Comments [employer] requesting record s Reason Comments Reminder Call Reason Comments Insurance Authorization Reason Comments Refill Request Reason Comments Hypertension Reason Comments Release Of Medical Records Reason Comments Recheck Follow up Reason Onset Date Comments Refill Request 06/07/2022 Reason Comments Rash B/L leg rash, itchin g Reason Comments Results Reason Comments PT Eval Specialty Diagnoses / Procedures Referred By Contac t Referred To Contact [facility] Diagnoses Chronic left hip pain Procedures CONSULT TO PHYSICAL THERAPY PHYSICAL THERAPY EVALUATION HIGH COMPLEX 45 MINS THERAPEUTIC EXERCISES RE, EA 15 MIN. Breanna Ortiz APRN.BASKET SORTER [address] [place] [address] [facility] [address] [address] Referral ID Status Reason Start Date Expiration Date Visits Requested Visits Authorized [id number] Authorized Auto-Generat ed Referral 03/27/2022 03/26/2023 20 20 Reason Comments Physical Therapy Specialty Diagnoses / Procedures Referred By Contac t Referred To Contact [facility] Diagnoses Chronic left hip pain Procedures CONSULT TO PHYSICAL THERAPY PHYSICAL THERAPY EVALUATION HIGH COMPLEX 45 MINS THERAPEUTIC EXERCISES RE, EA 15 MIN. Breanna Ortiz APRN.BASKET SORTER [address] [place] [address] [facility] [address] [address] Reason Onset Date Comments Refill Request 08/23/2022 Reason Comments Pain Left hip/leg pain. S china spot/pain as shingles 8-10 years age Reason Comments F/U 3 Month Reason Onset Date Comments Allied Health Visit 02/07/2023 Medication A dherence Outreach Reason Comments F/U 6 Month Reason Onset Date Comments Refill Request 07/21/2023 Reason Comments Mammogram Result Call Back bilateral eva g mamm and us cb per ym Reason Comments Radiology US Specialty Diagnoses / Procedures [facility] Diagnoses Abnormal mammogram of both breasts Procedures US BREAST LTD RIGHT US BREAST UNI REAL TIME WITH IMAGE LIMITED Pulido, Angélica, BELLMAN.FUNCTIONAL ARCHITECT [address] [place] [address] [facility] [address] [place] [address] Referral ID Status Reason Start Date Expiration Date V isits Requested Visits Authorized [id number] Closed Auto-Generate d Referral 07/30/2023 08/28/2024 1 1 Reason Comments Consult Left breast Reason Comments Radio Imaging Study Comments Reason Comments Hives Reason Comments Radiology Invasive Breast Procedure Specialty Diagnoses / Procedures [facility] Diagnoses Abnormal mammogram Procedures VALERI STEREO BX BREAST RIGHT BX BREAST W/DEVICE 1ST LESION STEREOTACTIC Ayo Montelongo MD [address] [place] [address] [facility] [address] [place] [address] Referral ID Status Reason Start Date Expiration Date V isits Requested Visits Authorized [id number] Closed Auto-Generate d Referral 09/04/2023 10/03/2024 1 1 Reason Comments Radiology Invasive Breast Procedure Specialty Diagnoses / Procedures [facility] Diagnoses Abnormal mammogram Procedures VALERI STEREO BX BREAST RIGHT BX BREAST W/DEVICE 1ST LESION STEREOTACTIC Ayo Montelongo MD [address] [place] [address] [facility] [address] [place] [address] Reason Comments Results 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 Reason Comments Breast Cancer Reason Comments Radiology Mammogram Specialty Diagnoses / Procedures [facility] Diagnoses Malignant neoplasm of upper-outer quadrant of right breast in female, estrogen receptor positive (HCC) Procedures US AXILLA ONLY RIGHT US LMTD JOINT/OTH NONVASC XTR STRUX R-[place] W/[place] [address] [place] [address] [facility] [address] [place] [id number] Referral ID Status Reason Start Date Expiration Date V isits Requested Visits Authorized [id number] Closed Auto-Generate d Referral 10/17/2023 11/15/2024 1 1 Reason Comments Radiology MRI Specialty Diagnoses / Procedures Referred By Contac t Referred To Contact [facility] Diagnoses Malignant neoplasm of upper-outer quadrant of right breast in female, estrogen receptor positive (HCC) Procedures MRI BREAST WO/W IVCON BILATERAL MRI BREAST WITHOUT&WITH CONTRAST W/[place] [address] [place] [address] [facility] [place] [address] Referral ID Status Reason Start Date Expiration Date V isits Requested Visits Authorized [id number] Closed Auto-Generate d Referral 10/12/2023 11/10/2024 1 1 Reason Comments Return Call Request Reason Comments MRI Report Specialty Diagnoses / Procedures Referred By Contac t Referred To Contact [facility] Diagnoses Breast disorder Procedures US BREAST LTD LEFT US BREAST UNI REAL TIME WITH IMAGE LIMITED Chanel Pascual MD [address] [place] [address] [facility] [address] [place] [address] Referral ID Status Reason Start Date Expiration Date V isits Requested Visits Authorized [id number] Closed Auto-Generate d Referral 10/23/2023 11/21/2024 1 1 Reason Comments Appointment Specialty Diagnoses / Procedures Referred By Contac t Referred To Contact [facility] Diagnoses Abnormal ultrasound of breast Procedures MRI CLIP PLACEMENT BREAST LEFT PERQ BREAST LOC DEVICE PLACEMT 1ST LESIO Kisha Zarco MD [address] [place] [address] [facility] [place] [address] Referral ID Status Reason Start Date Expiration Date V isits Requested Visits Authorized [id number] Closed Auto-Generate d Referral 10/27/2023 11/25/2024 1 1 Reason Onset Date Comments Population Health Navigation Outreach 11/08/2023 Tsering Lewis PCSA Reason Comments New Patient Specialty Diagnoses / Procedures Referred By Lupe t Referred To Contact Diagnoses Malignant neoplasm of upper-outer quadrant of right breast in female, estrogen receptor positive (HCC) Procedures CONSULT TO HEMATOLOGY/ONCOLOGY OFFICE/OUTPATIENT NEW HIGH MDM [address] [place] [address] [place] [address] Referral ID Status Reason Start Date Expiration Date V isits Requested Visits Authorized [id number] Closed PCP Requested Referral 10/12/2023 10/11/2024 1 1 Reason Comments Consult Reason Onset Date Comments Allied Health Visit 11/14/2023 Medication A dherence Outreach Reason Comments Radiology MRI Specialty Diagnoses / Procedures Referred By Lupe montanez Referred To Contact [facility] Diagnoses Abnormal MRI, breast Procedures MRI BREAST BX WO/W IVCON LEFT BX BREAST W/DEVICE 1ST LESION MAGNETIC RES GUID Mo Medina MD [address] [place] [address] [place] [address] Referral ID Status Reason Start Date Expiration Date V isits Requested Visits Authorized [id number] Closed Auto-Generate d Referral 11/07/2023 12/06/2024 1 1 Reason Comments mri biopsy result Reason Comments Schedule Surgery Reason Comments Breast Localization Reason Onset Date Comments Refill Request 11/25/2023 Reason Comments Consult Specialty Diagnoses / Procedures Referred By Lupe montanez Referred To Contact Diagnoses Malignant neoplasm of upper-outer quadrant of right breast in female, estrogen receptor positive (HCC) Procedures REFER TO [facility] - PREOPERATIVE OPTIMIZATION OFFICE/OUTPATIENT NEW HIGH MDM 60 MINUTES Kimberly Chavez PA-C [address] [place] [address] Referral ID Status Reason Start Date Expiration Date V isits Requested Visits Authorized [id number] Closed PCP Requested Referral 11/23/2023 11/22/2024 1 1 Reason Comments Insect Bite Reason Comments Pre-Op Teaching Specialty Diagnoses / Procedures Referred By Lupe montanez Referred To Contact [facility] Diagnoses Malignant neoplasm of upper-outer quadrant of right breast in female, estrogen receptor positive (HCC) Atypical lobular hyperplasia (ALH) of left breast Malignant neoplasm of upper-outer quadrant of right breast in female, estrogen receptor positive (HCC) [C50.411, Z17.0] Atypical lobular hyperplasia (ALH) of left breast [N60.92] Procedures MASTECTOMY, SIMPLE, COMPLETE INTRAOP SENTINEL LYMPH NODE ID W/DYE INJECTION BX/EXC LYMPH NODE OPEN DEEP AXILLARY NODE EXC BREAST LES PREOP PLMT RAD MARKER OPEN 1 LES MASTECTOMY SIMPLE INTRAOPERATIVE ID OF SENTINEL LYMPH NODE(S) INCL'D INJECTION OF NON-RAD DYE WHEN PERFORMED BIOPSY NODE AXILLARY EXCISION BREAST LESION IDENTIFIED BY PREOPERATIVE PLACEMENT RADIOLOGICAL MARKER, OPEN, SINGLE LESION [facility] [address] [place] [address] Referral ID Status Reason Start Date Expiration Date Visits Re quested Visits Authorized [id number] 1 1 Reason Comments Post Op Reason Comments Breast Problem Reason Comments Established Patient Reason Comments Yearly Exam Reason Onset Date Comments Refill Request 02/05/2024 Reason Comments Follow Up Reason Comments Dental Clearance - Chemotherapy Reason Comments Social Work Services Reason Comments Non-Chemotherapy Treatment Specialty Diagnoses / Procedures Referred By Lupe montanez Referred To Contact Diagnoses Malignant neoplasm of right breast in female, estrogen receptor positive, unspecified site of breast (HCC) Laney Ignacio, DO [address] [place] [address] Phone: tel: fax: Laney Ignacio, DO [address] [place] [address] Phone: tel: fax: Referral ID Status Reason Start Date Expiration Date Visits Re quested Visits Authorized [id number] Closed 08/14/2024 07/08/2025 0 4 Reason Onset Date Comments Refill Request 08/23/2024 Care Teams (unrecognized sec tion and content) [employer]scape [employer] Laborer Relationship Specialty Start Date End Date Ramandeep Alvarez MD [address] [place], [place] [id number] PCP - General Internal Medicine 03/07/16 [employer]work Laborer Relationship Specialty Start Date End Date Ramandeep Alvarez MD [address] [place] [address] PCP - General Internal Medicine 03/07/16 [employer] Yardwork Laborer Relationship Specialty Start Date End Date Ramandeep Alvarez MD [address] [place] [address] PCP - General Internal Medicine 03/07/16 [employer]scape And Yardwork Laborer Relationship Specialty Start Date End Date Ramandeep Alvarez MD [address] [place] [address] PCP - General Internal Medicine 03/07/16 [employer] And Yardwork Laborer Relationship Specialty Start Date End Date Ramandeep Alvarez MD [address] [place] [address] PCP - General Internal Medicine 03/07/16 [employer]scape And Yardwork Laborer Relationship Specialty Start Date End Date Ramandeep Alvarez MD [address] [place] [address] PCP - General Internal Medicine 03/07/16 [employer]scape And Yardwork Laborer Relationship Specialty Start Date End Date Ramandeep Alvarez MD [address] [place] [address] PCP - General Internal Medicine 03/07/16 Landscape And Yardwork Laborer Relationship Specialty Start Date End Date Ramandeep Alvarez MD [address] [place] [address] PCP - General Internal Medicine 03/07/16 Landscape And Yardwork Laborer Relationship Specialty Start Date End Date Ramandeep Alvarez MD [address] [place] [address] PCP - General Internal Medicine 03/07/16 [employer]scape And Yardwork Laborer Relationship Specialty Start Date End Date Ramandeep Alvarez MD [address] [place] [address] PCP - General Internal Medicine 03/07/16 Landscape And Yardwork Laborer Relationship Specialty Start Date End Date Ramandeep Alvarez MD [address] [place] [address] PCP - General Internal Medicine 03/07/16 [employer] Laborer Relationship Specialty Start Date End Date Ramandeep Alvarez MD [address] [place] [address] PCP - General Internal Medicine 03/07/16 [employer] Yard[employer] Laborer Relationship Specialty Start Date End Date Ramandeep Alvarez MD [address] [place] [address] PCP - General Internal Medicine 03/07/16 [employer] Yardwork Laborer Relationship Specialty Start Date End Date Ramandeep Alvarez MD [address] [place] [address] PCP - General Internal Medicine 03/07/16 [employer] Yardwork Laborer Relationship Specialty Start Date End Date Ramandeep Alvarez MD [address] [place] [address] PCP - General Internal Medicine 03/07/16 [employer] Yardwork Laborer Relationship Specialty Start Date End Date Ramandeep Alvarez MD [address] [place] [address] PCP - General Internal Medicine 03/07/16 Landscape [employer] Yardwork Laborer Relationship Specialty Start Date End Date Ramandeep Alvarez MD [address] [place] [address] PCP - General Internal Medicine 03/07/16 Land[employer] Yardwork Laborer Relationship Specialty Start Date End Date Ramandeep Alvarez MD [address] [place] [address] PCP - General Internal Medicine 03/07/16 Land[employer] Yardwork Laborer Relationship Specialty Start Date End Date Ramandeep Alvarez MD [address] [place] [address] PCP - General Internal Medicine 03/07/16 [employer]work Laborer Relationship Specialty Start Date End Date Ramandeep Alvarez MD [address] [place] [address] PCP - General Internal Medicine 03/07/16 [employer] Yardwork Laborer Relationship Specialty Start Date End Date Ramandeep Alvarez MD [address] [place] [address] PCP - General Internal Medicine 03/07/16 Landscape [employer] Yardwork Laborer Relationship Specialty Start Date End Date Ramandeep Alvarez MD [address] [place] [address] PCP - General Internal Medicine 03/07/16 [employer] Yard[employer] Laborer Relationship Specialty Start Date End Date Ramandeep Alvarez MD [address] [place] [address] PCP - General Internal Medicine 03/07/16 [employer] Laborer Relationship Specialty Start Date End Date Ramandeep Alvarez MD [address] [place] [address] PCP - General Internal Medicine 03/07/16 Land[employer]work Laborer Relationship Specialty Start Date End Date Ramandeep Alvarez MD [address] [place] [address] PCP - General Internal Medicine 03/07/16 [employer] Laborer Relationship Specialty Start Date End Date Ramandeep Alvarez MD [address] [place] [address] PCP - General Internal Medicine 03/07/16 Landscape [employer] Yardwork Laborer Relationship Specialty Start Date End Date Ramandeep Alvarez MD [address] [place] [address] PCP - General Internal Medicine 03/07/16 Land[employer] Yardwork Laborer Relationship Specialty Start Date End Date Ramandeep Alvarez MD [address] [facility] [place] [address] PCP - General Internal Medicine 03/07/16 Landscape [employer] Yardwork Laborer Relationship Specialty Start Date End Date Ramandeep Alvarez MD [address] [facility] [place] [address] PCP - General Internal Medicine 03/07/16 Landscape [employer] Yardwork Laborer Relationship Specialty Start Date End Date Ramandeep Alvarez MD [address] [facility] [place] [address] PCP - General Internal Medicine 03/07/16 Landscape And Yardwork Laborer Relationship Specialty Start Date End Date Ramandeep Alvarez MD [address] [facility] [place] [address] PCP - General Internal Medicine 03/07/16 Landscape And Yardwork Laborer Relationship Specialty Start Date End Date Ramandeep Alvarez MD [address] [place] [address] PCP - General Internal Medicine 03/07/16 Land[employer] Yardwork Laborer Relationship Specialty Start Date End Date Ramandeep Alavrez MD [address] [facility] [place] [address] PCP - General Internal Medicine 03/07/16 Landscape And Yardwork Laborer Relationship Specialty Start Date End Date Ramandeep Alvarez MD [address] [facility] [place] [address] PCP - General Internal Medicine 03/07/16 Landscape And Yardwork Laborer Relationship Specialty Start Date End Date Ramandeep Alvarez MD [address] [facility] [place] [address] PCP - General Internal Medicine 03/07/16 Landscape And Yardwork Laborer Relationship Specialty Start Date End Date Ramandeep Alvarez MD [address] [facility] [place] [address] PCP - General Internal Medicine 03/07/16 Landscape [employer] Yardwork Laborer Relationship Specialty Start Date End Date Ramandeep Alvarez MD [address] [facility] [place] [address] PCP - General Internal Medicine 03/07/16 Landscape And Yardwork Laborer Relationship Specialty Start Date End Date Ramandeep Alvarez MD [address] [facility] [place] [address] PCP - General Internal Medicine 03/07/16 Landscape And Yardwork Laborer Relationship Specialty Start Date End Date Ramandeep Alvarez MD [address] [facility] [place] [address] PCP - General Internal Medicine 03/07/16 Landscape [employer] Yardwork Laborer Relationship Specialty Start Date End Date Ramandeep Alvarez MD [address] [facility] [place] [address] PCP - General Internal Medicine 03/07/16 Landscape [employer] Yardwork Laborer Relationship Specialty Start Date End Date Ramandeep Alvarez MD [address] [facility] [place] [address] PCP - General Internal Medicine 03/07/16 Landscape And Yardwork Laborer Relationship Specialty Start Date End Date Ramandeep Alvarez MD [address] [facility] [place] [address] PCP - General Internal Medicine 03/07/16 Landscape And Yardwork Laborer Relationship Specialty Start Date End Date Ramandeep Alvarez MD [address] [facility] [place] [address] PCP - General Internal Medicine 03/07/16 Landscape [employer] Yardwork Laborer Relationship Specialty Start Date End Date Ramandeep Alvarez MD [address] [place] [address] PCP - General Internal Medicine 03/07/16 Landscape [employer] Yardwork Laborer Relationship Specialty Start Date End Date Ramandeep Alvarez MD [address] [place] [address] PCP - General Internal Medicine 03/07/16 Land[employer] Yardwork Laborer Relationship Specialty Start Date End Date Ramandeep Alvarez MD [address] [place] [address] PCP - General Internal Medicine 03/07/16 Landscape And Yardwork Laborer Relationship Specialty Start Date End Date Ramandeep Alvarez MD [address] [place] [address] PCP - General Internal Medicine 03/07/16 Land[employer] Laborer Relationship Specialty Start Date End Date Ramandeep Alvarez MD [address] [place] [address] PCP - General Internal Medicine 03/07/16 Land[employer] Yardwork Laborer Relationship Specialty Start Date End Date Ramandeep Alvarez MD [address] [place] [address] PCP - General Internal Medicine 03/07/16 Landscape [employer] Yardwork Laborer Relationship Specialty Start Date End Date Ramandeep Alvarez MD [address] [place] [address] PCP - General Internal Medicine 03/07/16 Land[employer] Yardwork Laborer Relationship Specialty Start Date End Date Ramandeep Alvarez MD [address] [place] [address] PCP - General Internal Medicine 03/07/16 Landscape And Yardwork Laborer Relationship Specialty Start Date End Date Ramandeep Alvarez MD [address] [place] [address] PCP - General Internal Medicine 03/07/16 Landscape And Yardwork Laborer Relationship Specialty Start Date End Date Ramandeep Alvarez MD [address] [place] [address] PCP - General Internal Medicine 03/07/16 Landscape And Yardwork Laborer Relationship Specialty Start Date End Date Ramandeep Alvarez MD [address] [place] [address] PCP - General Internal Medicine 03/07/16 Landscape And Yardwork Laborer Relationship Specialty Start Date End Date Ramandeep Alvarez MD [address] [place] [address] PCP - General Internal Medicine 03/07/16 Landscape [employer] Yardwork Laborer Relationship Specialty Start Date End Date Ramandeep Alvarez MD [address] [place] [address] PCP - General Internal Medicine 03/07/16 Landscape [employer] Yardwork Laborer Relationship Specialty Start Date End Date Ramandeep Alvarez MD [address] [place] [address] PCP - General Internal Medicine 03/07/16 Kinjal Carlton PA-C [address] [place] [address] Field Marketing Specialist Family Medicine 03/03/24 Breanna Ortiz APRN.BASKET SORTER [address] [place] [address] Field Marketing Specialist Internal Medicine 03/03/24 Molly Rudolph PA-C [address] [place] [address] [facility] 03/03/24 Landscape [employer] Yardwork Laborer Relationship Specialty Start Date End Date Ramandeep Alvarez MD [address] [place] [address] PCP - General Internal Medicine 03/07/16 Kinjal Carlton PA-C [address] [place] [address] [facility] 03/03/24 Breanna Ortiz APRN.BASKET SORTER [address] [place] [address] [facility] Internal Medicine 03/03/24 Molly Rudolph PA-C [address] [place] [address] [facility] 03/03/24 Landscape [employer] Yardwork Laborer Relationship Specialty Start Date End Date Ramandeep Alvarez MD [address] [place] [address] PCP - General Internal Medicine 03/07/16 Breanna Ortiz APRN.BASKET SORTER [address] [place] [address] [facility] Internal Medicine 03/03/24 [employer]work Laborer Relationship Specialty Start Date End Date Ramandeep Alvarez MD [address] [place] [address] PCP - General Internal Medicine 03/07/16 Breanna Ortiz APRN.BASKET SORTER [address] [place] [address] Field Marketing Specialist Internal Medicine 03/03/24 [employer] Laborer Relationship Specialty Start Date End Date Ramandeep Alvarez MD [address] [place] [address] PCP - General Internal Medicine 03/07/16 Breanna Ortiz APRN.BASKET SORTER [address] [place] [address] Field Marketing Specialist Internal Medicine 03/03/24 Land[employer] Yardwork Laborer Relationship Specialty Start Date End Date Ramandeep Alvarez MD [address] [facility] [place] [address] PCP - General Internal Medicine 03/07/16 Breanna Ortiz APRN.BASKET SORTER [address] [place] [address] Field Marketing Specialist Internal Medicine 03/03/24 Landscape [employer] Yardwork Laborer Relationship Specialty Start Date End Date Ramandeep Alvarez MD [address] [facility] [place] [address] PCP - General Internal Medicine 03/07/16 Breanna Ortiz APRN.BASKET SORTER [address] [place] [address] Field Marketing Specialist Internal Medicine 03/03/24 Landscape [employer] Yardwork Laborer Relationship Specialty Start Date End Date Ramandeep Alvarez MD [address] [place] [address] PCP - General Internal Medicine 03/07/16 Breanna Ortiz APRN.BASKET SORTER [address] [place] [address] Field Marketing Specialist Internal Medicine 03/03/24 Land[employer] Yardwork Laborer Relationship Specialty Start Date End Date Ramandeep Alvarez MD [address] [place] [address] PCP - General Internal Medicine 03/07/16 Breanna Ortiz APRN.BASKET SORTER [address] [facility] [place] [address] Field Marketing Specialist Internal Medicine 03/03/24 Land[employer] Yardwork Laborer Relationship Specialty Start Date End Date Ramandeep Alvarez MD [address] [place] [address] PCP - General Internal Medicine 03/07/16 Breanna Ortiz APRN.BASKET SORTER [address] [place] [address] Field Marketing Specialist Internal Medicine 03/03/24 Land[employer]work Laborer Relationship Specialty Start Date End Date Ramandeep Alvarez MD [address] [place] [address] PCP - General Internal Medicine 03/07/16 Kinjal Carlton PA-C [address] [place] [address] Field Marketing Specialist Family Medicine 03/03/24 06/16/24 Breanna Ortiz, CHARO.BASKET SORTER [address] [facility] [place] [address] Field Marketing Specialist Internal Medicine 03/03/24 Molly Rudolph PA-C [address] [place], [place] [address] Field Marketing Specialist Family Medicine 03/03/24 06/16/24 INFORMATION SOURCE (unrecogn ized section and content) DATE CREATED AUTHOR 07/30/2021 [facility] DATE CREATED AUTHOR AUTHOR'S ORGANIZ ATION 12/01/2021 [facility] DATE CREATED AUTHOR AUTHOR'S ORGANIZ ATION 11/09/2023 [facility] DATE CREATED AUTHOR AUTHOR'S ORGANIZ ATION 08/28/2024 [facility] Scheduled Active and Recently Administ ered Medications (unrecognized section and content) Medication Order 12/16/2023 12/17/2023 12/18/2023 acetaminophen 1,000 mg tab(s) (TYLENOL) (COMPLETED) 1,000 mg, ORAL, PRE-OP ONCE, 1 dose, On Mon12/18/23 at 0730, Preprocedure 0730 (Given - Provid er: Mary Aquino RN) ondansetron (PF) 4 mg injection (ZOFRAN) (COMPLETED) 4 mg, INTRAVENOUS, ONCE, 1 dose, On Mon12/18/23 at 1230, Give IV push over 2 minutes 1225 (Given - Provid er: Ana Olvera RN - Comment: pt. nauseated after ambulating to restroom) Continuous Medication Order 12/16/2023 12/17/2023 12/18/2023 lactated ringers iv infusion (CANCELED) 5-30 mL/hr, INTRAVENOUS, CONTINUOUS, Starting on Mon12/18/23 at 0730, Until Mon12/18/23 at 1001, Preprocedure 0730 (New Bag/Syring e/Bottle - Provider: Mary Aquino RN)0833 (Stopped - Provider: VERA Menjivar - Comment: Switch to gravity)0834 (Restarted - Provider: VERA Menjivar)1000 (Infusion Complete - Provider: VERA Menjivar) lactated ringers iv infusion 75 mL/hr, INTRAVENOUS, CONTINUOUS, Starting on Mon12/18/23 at 1030, Until Mon12/19/23 at 0303, Recovery or Phase I (only) 1013 (Rate Verify - Provider: Ana Olvera RN) PRN Medication Order 12/16/2023 12/17/2023 12/18/2023 bupivacaine (PF) 0.25 % (2.5 mg/mL) 30 mL, BUPivacaine liposome (PF) 20 mL (CANCELED) X (OR/PROCEDURE) PRN, Starting on Mon12/18/23 at 0854, Until Mon12/18/23 at 1016, Intraprocedure 0928 (Given - Provid er: Loy Kwon MD)0930 (Given - Provider: Loy Kwon MD) diphenhydrAMINE 12.5 mg injection (BENADRYL) 12.5 mg, INTRAVENOUS, NEEDED, 1 dose, Starting on Mon12/18/23 at 1029, Until Mon12/19/23 at 0303, itching/rash, Nausea/Vomiting - First Line - Parenteral, Recovery or Phase I (only) fentaNYL 50 mcg/mL 50 mcg injection (SUBLIMAZE) 50 mcg, INTRAVENOUS, EVERY 5 MINUTES NEEDED, 2 doses, Starting on Mon12/18/23 at 1029, Until Mon12/19/23 at 0303, FIRST LINE THERAPY for moderate or severe pain, Hold for respiratory rate less than 14, Recovery or Phase I (only) HYDROmorphone 0.2 mg injection (DILAUDID) 0.2 mg, INTRAVENOUS, EVERY 10 MINUTES NEEDED, 4 doses, Starting on Mon12/18/23 at 1029, Until Mon12/19/23 at 0303, SECOND LINE THERAPY for moderate or severe pain, Hold for respiratory rate less than 14 Caution: IV hydromorphone is approximately 8 times MORE POTENT than IV morphine. For example, hydromorphone 1mg IV = morphine 8mg IV, Recovery or Phase I (only) methylene blue injection (CANCELED) X (OR/PROCEDURE) PRN, Starting on Mon12/18/23 at 0841, Until Mon12/18/23 at 1016, Intraprocedure 0841 (Given - Provid er: Loy Kwon MD - Comment: injected locally to right breast) NaCl 0.9% irrigation bottle (CANCELED) X (OR/PROCEDURE) PRN, Starting on Mon12/18/23 at 0854, Until Mon12/18/23 at 1016, Intraprocedure 0854 (Given - Provid er: Loy Kwon MD - Comment: on OR back table) oxyCODONE IR 5 mg tab(s) (ROXICODONE) (COMPLETED) 5 mg, ORAL, POST-OP PRN, 1 dose, Starting on Mon12/18/23 at 1029, Until Mon12/18/23 at 1140, Moderate Pain (4-6) - Enteral, Recovery or Phase I (only) 1140 (Given - Provid er: Ana Olvera RN) FOR RECORDS PERTAINING TO PATIENTS WHO ARE OR HAVE BEEN ENROLLED IN A CHEMICAL DEPENDENCY/SUBSTANCEABUSE PROGRAM, SOME INFORMATION MAY BE OMITTED. This clinical summary was aggregated from multiple sources. Caution should be exercised in using it in the provision of clinical care. This summary normalizes information from multiple sources, and as a consequence, information in this document may materially change the coding, format and clinical context of patient data. In addition, data may be omitted in some cases. CLINICAL DECISIONS SHOULD BE BASED ON THE PRIMARY CLINICAL RECORDS. [facility] provides no warranty or guarantee of the accuracy or completeness of information in this document.
--- OUTSIDE RECORDS SUMMARY | 2024-09-28 21:10 | XMS RPT_ITS | CCD ---
Author Organization [facility] Care Team Providers Care Curriculum Director Name Role Phone Ramandeep Alvarez MD Primary Care Provider FANNING, LOY A Referring Unavailable GANTA, RAMANDEEP Primary Care Unavailable PROVIDER, UNKNOWN Referring Unavailable GANTA, RAMANDEEP Primary Care Unavailable Atifta Ramandeep DURBIN Primary Care Provider Kinjal Carlton PA-C Unavailable Older BANKING TEACHER.SANTO, Breanna Unavailable Molly Rudolph PA-C Unavailable GANTA, RAMANDEEP Primary Care Unavailable FANNING, [...] Care Unavailable MO MEDINA Referring Unavailable GANTA, RAMANDEEP Primary Care Unavailable [...] ANGÉLICA Referring Unavailable Kinjal Carlton PA-C Unavailable Molly Rudolph PA-C Unavailable Allergies Allergy Classification Reported Allergen(s) Allergy Type Date of Onset Reaction(s) Facility Acetaminophen / HYDROcodone (1 source) Acetaminophen / HYDROcodone Drug Allergy 04-27-2009 [facility] Work Phone: (20 sources) Acetaminophen / HYDROcodone; Translations: [HYDROCODONE-ACETA MINOPHEN] Drug Allergy 04-27-2009 [facility] Work Phone: Medications Current Medications Medication Drug Class(es) Dates Sig (Normalized) Sig (Original) >Zippered Compression Knee High 30-40 mm custom (20 sources) Start: 09-21-2018 >Zippered Compression Knee High 30-40 mm custom CUSTOM MEASURE FOR KNEE HIGH HO COMPRESSION STOCKINGS, 30-40 MM, WITH ZIPPERS PLEASE. IF UNABLE, PLEASE REFER TO [facility]. DX: EDEMA 1 Each 09/21/2018 Active Start: 09-21-2018 >Zippered Comp ression Knee High 30-40 mm custom CUSTOM MEASURE FOR KNEE HIGH HO COMPRESSION STOCKINGS, 30-40 MM, WITH ZIPPERS PLEASE. IF UNABLE, PLEASE REFER TO [facility]. DX: EDEMA 1 Each 0 09/21/2018 Active Comment on above: CUSTOM MEASURE FOR Aris PERALTA HIGH HO COMPRESSION STOCKINGS, 30-40 MM, WITH ZIPPERS PLEASE. IF UNABLE, PLEASE REFER TO [facility]. DX: EDEMA acetaminophen 325 mg / HYDROcodone [...] 650 mg, ORAL, ONCE, 1 dose, On [facility] 08/22/24 at 1330, No more than 4000 mg of acetaminophen should be given per day (FROM ALL SOURCES) Start: 12-18-2023 End: 12-18-2023 take 1 dose by mouth once 1,000 mg, ORAL, PRE-OP ONCE, 1 dose, On Mon12/18/23 at 0730, Preprocedure take 2 tablets by [facility] every six hours as needed [...] Anion gap [Moles/Vol] 13 mmol/L Normal 8-15 [facility] Comment on above: Order Comment: Speci men Type: BLOOD SPECIMENOrdering Facility: [facility] Address: [address] [place] [address] Performed By: #### 2 4321-2 ####[facility] [id number] [place] [address] [place] Calcium [Mass/Vol] 10.2 mg/dL Normal 8.5-10.2 [facility] Comment on above: Order Comment: Speci men Type: BLOOD SPECIMENOrdering Facility: [facility] Address: [address] [place] [address] Performed By: #### 2 4321-2 ####[facility] MILLWNCLIA [id number] [place] [address] [place] Chloride [Moles/Vol] 102 mmol/L Normal 98-107 [facility] Comment on above: Order Comment: Speci men Type: BLOOD SPECIMENOrdering Facility: [facility] Address: [address] [place] [address] Performed By: #### 2 4321-2 ####[facility] MILLWNCLIA [id number] [place] [address] [place] CO2 [Moles/Vol] 24 mmol/L Normal 22-30 [facility] Comment on above: Order Comment: Speci men Type: BLOOD SPECIMENOrdering Facility: [facility] Address: [address] [place] [address] Performed By: #### 2 4321-2 ####[facility] [id number] [place] [address] [place] Creatinine [Mass/Vol] 0.86 mg/dL Normal 0.58-0.96 [facility] Comment on above: Order Comment: Speci men Type: BLOOD SPECIMENOrdering Facility: [facility] Address: [address] [place] [address] Performed By: #### 2 4321-2 ####[facility] [id number] [place] [address] [place] Creatinine and Glomerular filtration rate.predicted panel (S/P/Bld) 66 mL/min/1.73m??? Normal >=60 [facility] Comment on above: Order Comment: Speci men Type: BLOOD SPECIMENOrdering Facility: [facility] Address: [address] [place] [address] Result Comment: Analia mated Glomerular Filtration Rate [...] actual GFR. Performed By: #### 2 4321-2 ####[facility] [id number] [place] [address] [place] Glucose [Mass/Vol] 93 mg/dL Normal 74-99 [facility] Comment on above: Order Comment: Speci men Type: BLOOD SPECIMENOrdering Facility: [facility] Address: [address] [place] [address] Result Comment: The [place] Diabetes Association (ADA) provides guidance for cutoff [...] Standards of Medical Care in Diabetes 2016, [place] Diabetes Association. Diabetes Care. 2016.39(Suppl 1). Performed By: #### 2 4321-2 ####[facility] [id number] [place] [address] [place] Potassium [Moles/Vol] 4.8 mmol/L Normal 3.7-5.1 [facility] Comment on above: Order Comment: Speci men Type: BLOOD SPECIMENOrdering Facility: [facility] Address: [address] [place] [address] Performed By: #### 2 4321-2 ####[facility] [id number] [place] [address] [place] Sodium [Moles/Vol] 139 mmol/L Normal 136-144 [facility] Comment on above: Order Comment: Speci men Type: BLOOD SPECIMENOrdering Facility: [facility] Address: [address] [place] [address] Performed By: #### 2 4321-2 ####[facility] [id number] [place] [address] [place] Urea nitrogen [Mass/Vol] 20 mg/dL Normal 7-21 [facility] Comment on above: Order Comment: Speci men Type: BLOOD SPECIMENOrdering Facility: [facility] Address: [address] [place] [address] Performed By: #### 2 4321-2 ####[facility]ITALL[facility] [id number] [place] [address] [facility] [place] 08-21-2024 SANTON Telephone (RUBI) -------- HILLARYALBERTO Foote ([id number]) 1935 F Date Time Provider Department 08/21/24 OKSANA OLIVIA During your visit today, we recorded the following information about you: Oksana Olivia LISW 08/21/2024 3:34 PM Signed Pt noted on [facility] 1st time treatment report. Pt is noted on report for Zometa injection, no social work follow up indicated. OSBALDO Rudolph-S Allergies As of Date: 08/21/2024 Noted Allergy Reaction VICODIN (HYDROCODONE-ACETAMINOPH E*04/27/2009 5 - Intolerance Date Reviewed: 07/04/2024 Reviewed by: Susan Carrero APRN.MACHINE MAINTENANCE SERVICER - Fully Assessed Reason for Visit: Social [...] IF UNABLE, PLEASE REFER TO [facility]. DX: EDEMA - multivitamin tablet Take 1 [...] Encounter Status:Closed by OKSANA OLIVIA on 08/21/24 [facility] [place] 08-05-2024 SANTON Telephone (HEMVINCENT) -------- ALBERTO RODRIGUEZ ([id number]) 1935 F Date Time Provider Department 08/05/24 [...] Date Reviewed: 07/04/2024 Reviewed by: Susan Carrero APRN.MACHINE MAINTENANCE SERVICER - Fully Assessed Reason for Visit: Dental [...] IF UNABLE, PLEASE REFER TO [facility]. DX: EDEMA - multivitamin tablet Take 1 [...] Encounter Status:Closed by KIMBERLY KRAUS on 08/09/24 [facility] CNOVSPon 07-04-2024 CNOVSP Visit (SP) Office (RUBI) -------- ALBERTO RODRIGUEZ ([id number]) 1935 F Date Time Provider Department 07/04/24 10:00 AM SUSAN CARRERO During your visit today, we recorded the following information about you: Temperature Pulse Blood pressure Weight 98.5 degrees 92/minute 113/65 61.9 kg Susan Carrero APRN.MACHINE MAINTENANCE SERVICER 07/04/2024 10:45 AM Signed Chief Complaint Patient [...] External Control Present and Stained as Expected MI status Positive (greater than or equal to 1%) MI % staining 99 Progesterone Receptor (Staining Intensity) [...] with clip placement 11/19. She lives in [place]. . Has close friend. Fully capable of [...] in consultation with Dr. Walters, of the [facility] breast pathology d (more content not included)... [facility] VALERI SCREENING W TOMOon 07-04 VALERI SCREENING W ARMANDO * * *Final Report* * * DATE OF EXAM: Jul 04 2024 11:08AM WRW [id number] - VALERI SCREENING W ARMANDO / PROCEDURE REASON: Atypical lobular hyperplasia (ALH) of left breast * * * * Physician Interpretation * * * * RESULT: [place] [address] #[id number] - [facility] SCREENING W ARMANDO HISTORY: 88 year-old patient [...] Mercedes Lim M.D. Electronically signed on: 07/06/2024 Fast Food Cashier: ALBA Transcribe Date/Time: Jul 04 2024 10:46A Dictated by: MERCEDES LIM MD This examination was interpreted and the report reviewed and electronically signed by: MERCEDES LIM MD on Jul 06 2024 1:58AM EST [id number] [facility] CNCOon 06-26-2024 CNCO Letter Text [facility] CNOVon 04-04-2024 CNOV Office Visit (BRCRBD ) -------- ALBERTO RODRIGUEZ ([id number]) 1935 F Date Time Provider Department 04/04/24 12:30 PM LOY KWON During your visit today, we recorded the following information about you: Loy Kwon MD 04/04/2024 1:00 PM Signed REASON FOR TODAY'S VISIT: Last seen December 2023 at her post op visit Returns today for scheduled interval exam and check She notes no breast related complaints today. No SEs from the anastrozole HISTORY: 12/18/23: RIGHT- SM/SLN and left excisional biopsy RIGHT: pT1bNx ER 99 MI 99 Her 2 FISH negative LEFT c/w LCIS December 2023 Initiated anastrozole (Masci) Plan to begin Zometa approx June 2024 REVIEW OF SYSTEMS 14 point ROS is negative except for that which is stated above. EXAMINATION: The sensitive examination was discussed with the Patient or Patient's Authorized Dust Collector Ore Crushing. As applicable, any other physician, advance practice provider, medical student, or other health professional student that will be observing or involved in the sensitive examination for educational or training purposes was discussed with the Patient or Authorized Dust Collector Ore Crushing. The Patient or Authorized Dust Collector Ore Crushing has agreed to proceed with the sensitive [...] site stereo biopsy in September cTmic N0 ER/MI 99 Her2 FISH negative the anterior(RA) biopsy: ALH MRI prompted biopsy LEFT c/w ALH 12/18/23: RIGHT- SM/SLN and left excisional biopsy RIGHT: pT1bNx ER 99 MI 99 Her 2 FISH negative LEFT c/w [...] which included preparing to see the patient, [id number] patient care, completing clinical documentation, obtaining and/or [...] IF UNABLE, PLEASE REFER TO [facility]. DX: EDEMA - multivitamin tablet Take 1 [...] anemia [D5 (more content not included)... [facility] CNPNon 04-04-2024 CNPN Telephone (STEPHANIEBD) -------- ALBERTO RODRIGUEZ ([id number]) 1935 F Date Time Provider Department 04/04/24 [...] IF UNABLE, PLEASE REFER TO [facility]. DX: EDEMA - multivitamin tablet Take 1 [...] Status:Closed by KIMBERLY CHAVEZ on 04/04/24 [facility] CNCOon 01-15-2024 CNCO Letter Text [facility] CNOVon 01-09-2024 CNOV Office Visit (INTMWS ) -------- ALBERTO RODRIGUEZ ([id number]) 1935 F Date Time Provider Department 01/09/24 [...] vegetables, exercise (more content not included)... [facility] CNOVSPon 01-02-2024 [facility] Visit (SP) Office (RUBI) -------- ALBERTO RODRIGUEZ ([id number]) 1935 F Date Time Provider Department 01/02/24 [...] External Control Present and Stained as Expected MI status Positive (greater than or equal to 1%) MI % staining 99 Progesterone Receptor (Staining Intensity) [...] with clip placement 11/19. She lives in [place]. . Has close friend. 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 -Biopsy site changes are identified. -The surrounding breast tissue shows atypical ductal hyperplasia (ADH), fibrocystic changes and microcalcifications. SHANELLE/shanelle/12/21/23 Diagnosis Comment CCM Select slides have been reviewed in consultatio (more content not included)... [facility] CNOVon 12-27-2023 CNOV Office Visit (BRCRBD ) -------- HILLARYALBERTO Foote ([id number]) 1935 F Date Time Provider Department 12/27/23 [...] site stereo biopsy in September cTmic N0 ER/MI 99 Her2 FISH negative the anterior(RA) biopsy: ALH MRI prompted biopsy LEFT c/w ALH 12/18/23: RIGHT- SM/SLN and left excisional biopsy RIGHT: pT1bNx ER 99 MI 99 Her 2 FISH negative LEFT c/w [...] IF UNABLE, PLEASE REFER TO [facility]. DX: EDEMA - multivitamin tablet Take 1 [...] Status:Closed by LOY KWON on 12/27/23 [facility] CNCOon 12-26-2023 CNCO Letter Text [facility] CNPNon 12-19-2023 CNPN Telephone (BRBD) -------- ALBERTO RODRIGUEZ ([id number]) 1935 F Date Time Provider Department 12/19/23 [facility] your visit today, we recorded the [...] IF UNABLE, PLEASE REFER TO [facility]. DX: EDEMA - multivitamin tablet Take 1 [...] Encounter Status:Closed by NURIS ALEGRIA on 12/19/23 [facility] [id number] 12-18-2023 [id number] HNO ID: [id number] Author: ANA OLVERA RN Service: ? Author Type: Registered Nurse Type: [id number] Filed: 12/18/2023 10:36 Note Text: You received 1000 mg tylenol/acetaminophen at 7:30 am. Next dose due at 1:30 pm if needed for pain. The maximum amount of tylenol/acetaminophen that you may take in a 24 hour time period is 4751-5749 mg. Please leave the blue/green arm band on your wrist for the next 96 hours. It alerts all caregivers that you may come in contact with, that you received a local anesthetic medication today called exparel. If you would need to receive any further local anesthetic in the next 4 days, health direct care professional would need to administer any further local anesthetic medication to you with extreme caution. Please be aware that your urine may blue to green in color for the next 1-2 days from the dye injection that you received. [facility] ANES POSTPROC EVALon 024 ANES POSTPROC EVAL HNO ID: [id number] Author: BREANNA GRAVES MD Service: Anesthesiology Author Type: Anesthesiologist Type: Anesthesia Postprocedure Evaluation Filed: 12/18/2023 13:04 Note Text: POST ANESTHESIA EVALUATION NOTE : 1935 Procedure Summary Date: 12/18/23 Room / Location: [address] Anesthesia Start: 833 Anesthesia Stop: 1016 [...] December 18, 2023 TIME: 1:04 PM CSN: [id number] [facility] ANES PRE-OPon 12-18-2023 ANES PRE-OP HNO ID: [id number] Author: BREANNA GRAVES MD Service: Anesthesiology Author [...] MARKER, OPEN, SINGLE LESION (Left: Breast) Location: [address] Surgeons: Loy Kwon MD Estimated body [...] IF UNABLE, PLEASE REFER TO [facility]. DX: EDEMA multivitamin tablet Take 1 tablet [...] December 18, 2023 TIME: 7:48 AM CSN: [id number] [facility] BREAST MARKERSon 12-18-2023 AP BIOMARKER DISCLAIMER [facility] Comment on above: Order Comment: Speci men Type: TISSUE SPECIMENOrdering Facility: [facility] Address: [address] [place] [address] Result Comment: Estrella maldonado Developed Test (LDT) Disclaimer: Performance characteristics of immunohistochemical, immunofluorescent and chromogenic in-situ hybridization tests have been determined by the performing laboratory within [facility]???s Dulce Vasquez Pathology and Laboratory Medicine Department ([facility], [facility], [facility], [facility], [facility], [facility], or [facility]) in a manner consistent with CLIA requirements. One or more of these tests have not been cleared or approved by the FDA. RT-PLM is regulated under CLIA as qualified to perform high-complexity testing. These tests are used for clinical purposes. They should not be regarded as investigational or for research. Positive and negative controls stain appropriately. Performed By: #### L [id number] ####[facility] LABCLIA [id number] [place] [address] [place]#### S ####[facility] LABCLIA [id number] [address] LABIA [id number] [place] [address] [place] AP BLOCK ID [id number] [facility] Comment on above: Order Comment: Speci men Type: TISSUE SPECIMENOrdering Facility: [facility] Address: [address] [place] [address] Performed By: #### L [id number] ####[facility] LABCLIA [id number] [place] [address] [place]#### S ####[facility] LABCLIA [id number] [address] [facility] [id number] [address] [place] ASCP/CAP GUIDELINES FOR FIXATION Yes [facility] Comment on above: Order Comment: Speci men Type: TISSUE SPECIMENOrdering Facility: [facility] Address: [address] [place] [address] Performed By: #### L [id number] ####[facility] LABCLIA [id number] [place] [address] [place]#### S ####[facility] LABCLIA [id number] [address] LABCLIA [id number] [place] [address] [place] BIOMARKER INTERPRETATION COMMENT AND REFERENCE RANGE [facility] Comment on above: Order Comment: Speci men Type: TISSUE SPECIMENOrdering Facility: [facility] Address: [address] [place] [address] Result Comment: Refe rence Range for Hormone Receptors: Staining for MI of greater than or equal to 1% of the tumor cells is considered positive. Staining for ER of 1-10% of the tumor cells is considered low positive. Staining for ER of greater than 10% of the tumor cells is considered positive. Staining for ER or MI of less than 1% is considered negative. [...] to ER-negative cancers. Performed By: #### L [id number] ####[facility] LABCLIA [id number] [place] [id number] [place]#### S ####[facility] LABCLIA [id number] [place] [id number] [place] [employer] LABCLIA [id number] [address] [place] BIOMARKER METHOD Normal [facility] Comment on above: Order Comment: Speci men Type: TISSUE SPECIMENOrdering Facility: [facility] Address: [address] [place] [address] Result Comment: Estr ogen Receptor: Food and Drug Administration (FDA) cleared: [place] Primary Antibody: SP1 Progesterone Receptor: FDA cleared: [place] Primary Antibody: IE2 HER2 (ERBB2) by IHC: FDA cleared: [place] Primary Antibody:4B5 The hormone receptor tests were performed and reported in accordance with the guidelines approved by the [place] Society of Clinical Oncologists and the College of [place] Pathologists. Yeny TIM, et al. Estrogen and Progesterone Receptor Testing in Breast Cancer: [place] Society of Clinical Oncologists and the College of [place] Pathologists Guideline Update. Arch Pathol Lab Med. 2019;144(5):545-563. PMID: [id number]. The hormone receptor assays have been internally validated on decalcified tissues (for [facility] only). Estrogen and progesterone receptor results are valid if tissue was processed according to ASCO/CAP guidelines. Antibody and Detection System: Cameron's Pathway anti-HER2 rabbit monoclonal antibody (clone 4B5), Cameron Confirm anti-estrogen receptor rabbit monoclonal antibody (clone SP1) and Cameron anti-progesterone receptor rabbit monoclonal antibody (clone IE2) detected with the Netadmin UltraView Univeral DAB Detection Kit (indirect biotin-free detection), [place], [place], [place]. Control Slides: Cell line controls with high, equivocal, low, and negative HER2 protein expression, along with known positive control tissue and the patient's tissue, are evaluated for HER2 expression. The HER2 immunohistochemistry assay was developed, validated, scored, and reported in accordance with the guidelines approved by the [place] Society of Clinical Oncologists and the College of [place] Pathologists. Faith ABRAHAM et al. Arch Pathol Lab Med. 2018;1379(9) The HER2 assay has not been validated on decalcified tissues. Given the possibility of false negative results on decalcified specimens, results should be interpreted with caution. Performed By: #### L [id number] ####[facility] LABCLIA [id number] [place] [address] [place]#### S ####[facility] LABCLIA [id number] [address] [address] [facility] LABCLIA [id number] [place] [id number] [place] BREAST TUMOR GRADE Grade 1 Normal [facility] Comment on above: Order Comment: Speci men Type: TISSUE SPECIMENOrdering Facility: [facility] Address: [address] [place] [id number] Performed By: #### L [id number] ####[facility] LABCLIA [id number] [place] [id number] [place]#### S ####[facility] LABCLIA [id number] [address] LABIA [id number] [place] [id number] [place] [facility] CASE NUMBER INVASIVE [id number] [facility] Comment on above: Order Comment: Speci men Type: TISSUE SPECIMENOrdering Facility: [facility] Address: [address] [place] [id number] Performed By: #### L [id number] ####[facility] LABCLIA [id number] [place] [id number] [place]#### S ####[facility] LABCLIA [id number] [place] [id number] [facility] LABCLIA [id number] [place] [id number] [place] COLD ISCHEMIA TIME <1 Hour Normal [facility] Comment on above: Order Comment: Speci men Type: TISSUE SPECIMENOrdering Facility: [facility] Address: [address] [place] [id number] Performed By: #### L [id number] ####[facility] LABCLIA [id number] [place] [id number] [place]#### S ####[facility] LABCLIA [id number] [place] [id number] [facility] LABCLIA [id number] [place] [id number] [place] ESTROGEN RECEPTOR (% TUMOR STAINING) >95 [facility] Comment on above: Order Comment: Speci men Type: TISSUE SPECIMENOrdering Facility: [facility] Address: [address] [place], [place] [address] Performed By: #### L [id number] ####[facility] LABCLIA [id number] [place] [address] [place]#### S ####[facility] LABCLIA [id number] [address] LABIA [id number] [place] [address] [place] ESTROGEN RECEPTOR (STAINING INTENSITY) Strong [facility] Comment on above: Order Comment: Speci men Type: TISSUE SPECIMENOrdering Facility: [facility] Address: [address] [place], [place] [address] Performed By: #### L [id number] ####[facility] LABCLIA [id number] [place] [id number] [place]#### S ####[facility] LABCLIA [id number] [place] [id number] [facility] LABCLIA [id number] [place] [id number] [place] ESTROGEN RECEPTOR EXTERNAL CONTROL Present and Stained as Expected [facility] Comment on above: Order Comment: Speci men Type: TISSUE SPECIMENOrdering Facility: [facility] Address: [address] [place], [place] [id number] Performed By: #### L [id number] ####[facility] LABCLIA [id number] [place] [address] [place]#### S ####[facility] LABCLIA [id number] [place] [id number] [facility] LABCLIA [id number] [place] [id number] [place] ESTROGEN RECEPTOR INTERNAL CONTROL Present and Stained as Expected [facility] Comment on above: Order Comment: Speci men Type: TISSUE SPECIMENOrdering Facility: [facility] Address: [address] [place] [address] Performed By: #### L [id number] ####[facility] LABCLIA [id number] [place] [address] [place]#### S ####[facility] LABCLIA [id number] [address] LABCLIA [id number] [place] [address] [place] ESTROGEN RECEPTOR STATUS (INVASIVE) Positive [facility] Comment on above: Order Comment: Speci men Type: TISSUE SPECIMENOrdering Facility: [facility] Address: [address] [place] [address] Performed By: #### L [id number] ####[facility] LABCLIA [id number] [place] [address] [place]#### S ####[facility] LABCLIA [id number] [place] [id number] [facility] LABCLIA [id number] [place] [id number] [place] FINAL PERFORMING LAB Normal [facility] Comment on above: Order Comment: Speci men Type: TISSUE SPECIMENOrdering Facility: [facility] Address: [address] [place], [place] [address] Result Comment: Diag nostic interpretation performed at: [facility], [address] [id number] CLIA# [id number] Felt Machine Mechanic: Tavo Roberts MD Electronically signed out by: Jerry Cheung MD Performed By: #### L [id number] ####[facility] LABCLIA [id number] [place] [id number] [place]#### S ####[facility] LABCLIA [id number] [place] [id number] [facility] LABCLIA [id number] [place] [address] [place] FIXATIVE Formalin, 10% Neutra l Buffered [facility] Comment on above: Order Comment: Speci men Type: TISSUE SPECIMENOrdering Facility: [facility] Address: [address] [place], [place] [address] Performed By: #### L [id number] ####[facility] LABCLIA [id number] [place] [id number] [place]#### S ####[facility] LABCLIA [id number] [address] LABCLIA [id number] [place] [address] [place] HER2 SCORE 1+ [facility] Comment on above: Order Comment: Speci men Type: TISSUE SPECIMENOrdering Facility: [facility] Address: [address] [place], [place] [address] Performed By: #### L [id number] ####[facility] LABCLIA [id number] [place] [id number] [place]#### S ####[facility] LABCLIA [id number] [place] [id number] [facility] LABCLIA [id number] [place] [id number] [place] HER2 STATUS (INVASIVE) Negative Normal [facility] Comment on above: Order Comment: Speci men Type: TISSUE SPECIMENOrdering Facility: [facility] Address: [address] [place] [address] Performed By: #### L [id number] ####[facility] LABCLIA [id number] [place] [address] [place]#### S ####[facility] LABCLIA [id number] [address] LABIA [id number] [place] [address] [place] PROGESTERONE RECEPTOR (% TUMOR STAINING) >95 [facility] Comment on above: Order Comment: Speci men Type: TISSUE SPECIMENOrdering Facility: [facility] Address: [address] [place] [address] Performed By: #### L [id number] ####[facility] LABCLIA [id number] [place] [address] [place]#### S ####[facility] LABCLIA [id number] [address] LABIA [id number] [place] [address] [place] PROGESTERONE RECEPTOR (STAINING INTENSITY) Strong [facility] Comment on above: Order Comment: Speci men Type: TISSUE SPECIMENOrdering Facility: [facility] Address: [address] [place], [place] [address] Performed By: #### L [id number] ####[facility] LABCLIA [id number] [place] [address] [place]#### S ####[facility] LABCLIA [id number] [place] [id number] [facility] LABCLIA [id number] [place] [id number] [place] PROGESTERONE RECEPTOR EXTERNAL CONTROL Present and Stained as Expected [facility] Comment on above: Order Comment: Speci men Type: TISSUE SPECIMENOrdering Facility: [facility] Address: [address] [id number] Performed By: #### L [id number] ####[facility] LABCLIA [id number] [place] [id number] [place]#### S ####[facility] LABCLIA [id number] [place] [address] [facility] LABIA [id number] [place] [id number] [place] PROGESTERONE RECEPTOR INTERNAL CONTROL Present and Stained as Expected [facility] Comment on above: Order Comment: Speci men Type: TISSUE SPECIMENOrdering Facility: [facility] Address: [address] [place], [place] [address] Performed By: #### L [id number] ####[facility] LABCLIA [id number] [place] [id number] [place]#### S ####[facility] LABCLIA [id number] [place] [address] [facility] LABCLIA [id number] [place] [id number] [place] PROGESTERONE RECEPTOR STATUS (INVASIVE) Positive [facility] Comment on above: Order Comment: Speci men Type: TISSUE SPECIMENOrdering Facility: [facility] Address: [address] [id number] Performed By: #### L [id number] ####[facility] LABCLIA [id number] [address] [address] [place]#### S ####[facility] LABCLIA [id number] [address] [address] [facility] LABCLIA [id number] [place] [id number] [place] TOTAL FIXATION TIME >6 and <72 Hours [facility] Comment on above: Order Comment: Speci men Type: TISSUE SPECIMENOrdering Facility: [facility] Address: [address] [place] [id number] Performed By: #### L [id number] ####[facility] LABCLIA [id number] [place] [address] [place]#### S ####[facility] LABCLIA [id number] [address] LABIA [id number] [place] [address] [place] TUMOR 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 [facility] Comment on above: Order Comment: Speci men Type: TISSUE SPECIMENOrdering Facility: [facility] Address: [address] [place], [place] [address] Performed By: #### L [id number] ####[facility] LABCLIA [id number] [place] [address] [place]#### S ####[facility] LABCLIA [id number] [address] LABCLIA [id number] [place] [id number] [place] WAS SPECIMEN DECALCIFIED No [facility] Comment on above: Order Comment: Speci men Type: TISSUE SPECIMENOrdering Facility: [facility] Address: [facility] [place] [address] Performed By: #### L [id number] ####[facility] LABCLIA [id number] [place] [address] [place]#### S ####[facility] LABCLIA [id number] [facility] [id number] [place] [id number] [facility] LABCLIA [id number] [address] SURGICAL BREAST SPECIMEN LTon 12-18-2023 [facility] SURGICAL BREAST SPECIMEN LT * * *Final Report* * * DATE OF EXAM: Dec 18 2023 9:09AM [facility] 0638 - [facility] SURGICAL BREAST SPECIMEN LT / PROCEDURE REASON: surgical specimen * * * * Physician Interpretation * * * * [address] [place] [address] HISTORY: Left Specimen Radiograph CORRELATION: 12/13/2023 (mammogram) and 12/13/2023. FINDINGS: A single image of the surgical specimen demonstrates a Q clip and Jazmyn localizer in the specimen. IMPRESSION: SPECIMEN SUMMARY: Specimen results were discussed with Dr. Kwon in the OR by Dr. Kuhn on 12/18/2023 at 915am. Interpreting Radiologist: Ismael Kuhn M.D. Fast Food Cashier: ALBA Transcribe Date/Time: Dec 18 2023 9:05A Dictated by : ISMAEL KUHN MD This examination was interpreted and the report reviewed and electronically signed by: ISMAEL KUHN MD on Dec 18 2023 9:16AM EST [id number] Normal [facility] SURGICAL BREAST SPECIMEN RTon 12-18-2023 [facility] SURGICAL BREAST SPECIMEN RT * * *Final Report* * * DATE OF EXAM: Dec 18 2023 9:39AM [facility] 0639 - [facility] SURGICAL BREAST SPECIMEN RT / PROCEDURE REASON: right surgical specimen * * * * Physician Interpretation * * * * [facility] [address] [facility] [address] [place], [place] [id number] HISTORY: Right Specimen Radiograph CORRELATION: A single [...] at 0941. Interpreting Radiologist: Leonie Pascual M.D. Fast Food Cashier: ALBA Transcribe Date/Time: Dec 18 2023 9:37A Dictated by : LEONIE PASCUAL MD This examination was interpreted and the report reviewed and electronically signed by: LEONIE PASCUAL MD on Dec 18 2023 9:49AM EST [id number] [facility] MG Breast specimen - left Vi ewson 12-18-2023 IMPRESSION: SPECIMEN SUMMARY: Specimen results were discussed with Dr. Kwon in the OR by Dr. Kuhn on 12/18/2023 at 915am. Interpreting Radiologist: Ismael Kuhn M.D. Fast Food Cashier: ALBA Transcribe Date/Time: Dec 18 2023 9:05A Dictated by : ISMAEL KUHN MD This examination was interpreted and the report reviewed and electronically signed by: ISMAEL KUHN MD on Dec 18 2023 9:16AM EST DIVISION OF RADIOLOGY * * *Final Report* * * DATE OF EXAM: Dec 18 2023 9:09AM [facility] 0638 - [facility] SURGICAL BREAST SPECIMEN LT / PROCEDURE REASON: surgical specimen * * * * Physician Interpretation * * * * [place] [address] HISTORY: Left Specimen Radiograph CORRELATION: 12/13/2023 (mammogram) and 12/13/2023. FINDINGS: A single image of the surgical specimen demonstrates a Q clip and Jazmyn localizer in the specimen. DIVISION OF RADIOLOGY Provider, [facility] - 12/18/2023 * * *Final Report* * * DATE OF EXAM: Dec 18 2023 9:09AM [facility] 0638 - [facility] SURGICAL BREAST SPECIMEN LT / PROCEDURE REASON: surgical specimen * * * * Physician Interpretation * * * * [address] [place] [address] HISTORY: Left Specimen Radiograph CORRELATION: 12/13/2023 (mammogram) and 12/13/2023. FINDINGS: A single image of the surgical specimen demonstrates a Q clip and Jazmyn localizer in the specimen. IMPRESSION IMPRESSION: SPECIMEN SUMMARY: Specimen results were discussed with Dr. Kwon in the OR by Dr. Kuhn on 12/18/2023 at 915am. Interpreting Radiologist: Ismael Kuhn M.D. Fast Food Cashier: ALBA Transcritawanna Date/Time: Dec 18 2023 9:05A Dictated by : ISMAEL KUHN MD This examination was interpreted and the report reviewed and electronically signed by: ISMAEL KUHN MD on Dec 18 2023 9:16AM EST [facility] Radiology Study observation (narrative) [facility] Breast specimen - left Vi ewsOrdered By: Ccf Provider on 12-18-2023 [facility] Breast specimen - right V iewson [...] at 0941. Interpreting Radiologist: Leonie Pascual M.D. Fast Food Cashier: ALBA Transcritawanna Date/Time: Dec 18 2023 9:37A Dictated by : LEONIE PASCUAL MD This examination was interpreted and the report reviewed and electronically signed by: LEONIE PASCUAL MD on Dec 18 2023 9:49AM EST DIVISION OF RADIOLOGY * * *Final Report* * * DATE OF EXAM: Dec 18 2023 9:39AM [facility] 0639 - [facility] SURGICAL BREAST SPECIMEN RT / PROCEDURE REASON: right surgical specimen * * * * Physician Interpretation * * * * [facility] [address] [facility] [address] [place], [place] [id number] HISTORY: Right Specimen Radiograph CORRELATION: A single [...] DATE OF EXAM: Dec 18 2023 9:39AM [facility] 0639 - [facility] SURGICAL BREAST SPECIMEN RT / PROCEDURE REASON: right surgical specimen * * * * Physician Interpretation * * * * [facility] [address] [facility] [address] [place] [address] HISTORY: Right Specimen Radiograph CORRELATION: A single [...] at 0941. Interpreting Radiologist: Leonie Pascual M.D. Fast Food Cashier: [email or web address] Transcribe Date/Time: Dec 18 2023 9:37A Dictated by : LEONIE PASCUAL MD This examination was interpreted and the report reviewed and electronically signed by: LEONIE PASCUAL MD on Dec 18 2023 9:49AM EST [facility] Radiology Study observation (narrative) [facility] NURSING PROGon 12-18-2023 NURSING PROG HNO ID: [id number] Author: ANA OLVERA RN Service: ? Author Type: Registered Nurse Type: Nursing Progress Note Filed: 12/18/2023 12:31 Note Text: Extensive CONOR teaching completed with pt. And friend. Pt. Up to restroom to void with 1 RN assist. Pt. Steady on feet. Pt. Nauseated upon returning to bed. Cold washcloth applied to forehead and will call Dr. Graves for additional zofran order IV. [facility] OPERATIVE NOon 12-18-2023 OPERATIVE NO HNO ID: [id number] Author: LOY KWON MD Service: General Surgery Author Type: Physician Type: Operative Report Filed: 12/19/2023 07:10 Note Text: [facility] - Operative Report [address] [address] [place] ALBERTO RODRIGUEZ Eddie : 1935 AGE: 88. SEX: F PATIENT TYPE: A HOSP SVC: LATHE TURNER LOCATION: [id number] ATTENDING PHYSICIAN: Loy Kwon M.D. CSN NUMBER: [id number] DATE OF SURGERY/PROCEDURE: 12/18/2023 INCISION/PROCEDURE START TIME: 8:52 AM INCISION CLOSE/PROCEDURE END TIME: 9:56 AM PREOPERATIVE DIAGNOSIS: Abnormal left mammogram and right breast cancer. POSTOPERATIVE DIAGNOSIS: Abnormal left mammogram and right breast cancer. SURGEON: Loy Kwon M.D. ONCOLOGY NAVIGATOR: LORE Celestin. No qualified surgical residents are available. Jeff acted as surgical pharmacist assistant in the capacity of retraction and exposure during the case. SURGERY/PROCEDURE: Left breast excisional biopsy, right mastectomy, lymphatic mapping, and sentinel node excision. ANESTHESIA: General via LMA. FLUIDS: Per record. ESTIMATED BLOOD LOSS: Less than 5 mL. SPECIMENS: Left breast excisional biopsy, right breast right sentinel node. OPERATIVE FINDINGS: Denver node was normal on intraoperative frozen section [...] case. Commission on Cancer - Standard 5.3: Denver Node Biopsy Synoptic Operative Reporting Denver Node Biopsy for Breast Cancer - Right [...] identified and removed. N/A Loy Kwon M.D. AF:[id number] /[id number] [facility] SURGICAL PATHOLOGYon 024 BLOCK FOR ADDITIONAL BIOMARKERS/MOLECULAR STUDIES C14 [facility] Comment on above: Order Comment: Speci men Type: TISSUE SPECIMENOrdering Facility: [facility] Address: [address] [place] [address] Performed By: #### L [id number] ####[facility] LABCLIA [id number] [place] [address] [place]#### S ####[facility] LABCLIA [id number] [address] LABCLIA [id number] [address] OF [facility] CASE REPORT [facility] Comment on above: Order Comment: Raleigh carbajal Type: TISSUE SPECIMENOrdering Facility: [facility] Address: [address] [place] [address] Result Comment: Surg [facility] Pathology Report Case: [id number] Authorizing Provider: Loy Kwon MD Collected: 12/18/2023 08:56 AM Ordering Location: Ambulatory Surgery Received: 12/18/2023 09:20 AM Pathologist: Jerry Cheung MD Intraop: Dario Hammond MD Specimens: A) - Breast, Left, Excision of Lesion, suture olivera short superior, long lateral B) - Lymph Node, Right, Axillary C) - Breast, Right, Mastectomy, suture olivera short superior, long lateral Performed By: #### L [id number] ####[facility] LABCLIA [id number] [place] [address] [place]#### S ####[facility] LABCLIA [id number] [address] LABCLIA [id number] [address] CLINICAL HISTORY Normal [facility] Comment on above: Order Comment: Speci men Type: TISSUE SPECIMENOrdering Facility: [facility] Address: [address] [place] [address] Result Comment: Pre- op diagnosis: Malignant neoplasm of upper-outer quadrant of right breast in female, estrogen receptor positive (HCC) [C50.411, Z17.0] Atypical lobular hyperplasia (ALH) of left breast [N60.92] Performed By: #### L [id number] ####[facility] LABCLIA [id number] [address]#### S ####[facility] LABCLIA [id number] [address] LABCLIA [id number] [address] FINAL DIAGNOSIS [facility] Comment on above: Order Comment: Speci men Type: TISSUE SPECIMENOrdering Facility: [facility] Address: [address] [place] [address] Result Comment: 1. L eft breast, oriented [...] and microcalcifications. SHANELLE/shanelle/12/21/23 Performed By: #### L [id number] ####[facility] LABCLIA [id number] [place] [address] [place]#### S ####[facility] LABCLIA [id number] [address] LABCLIA [id number] [address] [place] FINAL PERFORMING LAB Normal [facility] Comment on above: Order Comment: Speci men Type: TISSUE SPECIMENOrdering Facility: [facility] Address: [address] [place] [address] Result Comment: Diag nostic interpretation performed at [facility], [address] [place] [address] CLIA# [id number] Felt Machine Mechanic: Tavo Roberts M.D. Performed By: #### L [id number] ####[facility] LABCLIA [id number] [place] [address] [place]#### S ####[facility] LABCLIA [id number] [address] LABCLIA [id number] [address] [place] GROSS DESCRIPTION Normal [facility] Comment on above: Order Comment: Speci men Type: TISSUE SPECIMENOrdering Facility: [facility] Address: [address] [place] [address] Result Comment: Katia miliant, Left, Excision of Lesion Received in formalin in a Terence device designated breast, left, excision is an oriented (short-superior, long-lateral) segment of fibrofatty tissue which weighs 3.4 g and measures 2.5 cm (anterior to posterior) x 2.4 cm (superior to inferior) x 0.7 cm (medial to lateral). Examination of a radiograph of the specimen in epic reveals a Jazmyn tracer powder blender reflector and Q shaped clip present. The specimen is inked in the lab anterior-yellow, posterior-black, superior-blue, inferior-green, medial-orange, and lateral-red. The specimen is serially sectioned from anterior to posterior into 8 slices. Examination of the slices reveals a Q shaped clip in slice 5 and a Jazmyn tracer powder blender reflector in slice 4. A definitive mass [...] 2023 8:23 AM Gross examination performed at [facility], [address] [place] [address] B. Lymph Node, Right, Axillary Part B is received fresh and designated as lymph node right axillary consists of a single fragment of fibroadipose tissue material that has an overall dimension of 1 x 1 x 1 cm. Single lymph node is serially sectioned and submitted entirely in B1 for frozen section diagnosis. Gross examination performed at [facility], [address] [place], [place] [address]IA# [id number] C. Breast, Right, Mastectomy Labeled: Breast, right, [...] content not included)... Performed By: #### L [id number] ####[facility] LABCLIA [id number] [place] [address] [place]#### S ####[facility] LABCLIA [id number] [address] LABCLIA [id number] [place] [address] [place] INTRAOPERATIVE DIAGNOSIS [facility] Comment on above: Order Comment: Speci men Type: TISSUE SPECIMENOrdering Facility: [facility] Address: [address] [place] [address] Result Comment: Luis Herrera ymph Node, Right, Axillary FS A1: Lymph node, right, axillary, biopsy: - One lymph node, negative carcinoma (Dr. Hammond). Intraoperative diagnosis performed at [facility], [address] [place] [address] CLIA# [id number] Performed By: #### L [id number] ####[facility] LABCLIA [id number] [address] STATES [facility]#### S ####[facility] LABCLIA [id number] [address] LABCLIA [id number] [address] [place] SYNOPTIC REPORT [facility] Comment on above: Order Comment: Speci men Type: TISSUE SPECIMENOrdering Facility: [facility] Address: [address] [place] [address] Result Comment: INVA SIVE CARCINOMA OF THE BREAST: Resection INVASIVE CARCINOMA OF THE BREAST: RESECTION - B, C 8th Edition - Protocol posted: 09/13/2023 SPECIMEN Procedure: Total mastectomy Specimen Laterality: Right TUMOR Histologic Type: Invasive carcinoma with mixed ductal and lobular features Histologic Grade ([place] Histologic Score): Glandular (Acinar) / Tubular Differentiation: [...] Examined (sentinel and non-sentinel): 1 Number of Denver Nodes Examined: 1 pTNM CLASSIFICATION (AJCC 8th [...] seen in the patient's prior surgical specimen ([id number]) Performed By: #### L [id number] ####[facility] LABCLIA [id number] [place] [address] [place]#### S ####[facility] LABCLIA [id number] [place] [id number] [facility] LABCLIA [id number] [place] [address] [place] ECHOon 12-15-2023 Echocardiography Echocardiography Rep ort: Transthoracic Echo [facility] Date of service: 12/15/2023 10:22:33 AM FILLER Ordering physician: ELIZABETH SMITH Indication: Baseline and [...] * * * Final * * * [facility] : [id number] [facility] CNNURSEon 12-13-2023 CNNURSE Nurse Visit (BRCRBD) -------- ALBERTO RODRIGUEZ ([id number]) 1935 F Date Time Provider Department 12/13/23 [...] education: 30 minutes. Referring Provider: LOY KWON [[id number]] Allergies As of Date: 12/13/2023 Noted Allergy [...] IF UNABLE, PLEASE REFER TO CHUN[facility] AT [facility]. DX: EDEMA - multivitamin tablet Take 1 [...] by RAJI, (more content not included)... Normal [facility] DIAGNOSTIC LTon 12-13-19 [facility] DIAGNOSTIC LT * * *Final Report* * * DATE OF EXAM: Dec 13 2023 1:54PM [facility] 0621 - [facility] DIAGNOSTIC LT / PROCEDURE REASON: Abnormal finding on breast imaging * * * * Physician Interpretation * * * * [place] [address] HISTORY: Patient is 88 years old and [...] obscure small masses. There is a Jazmyn Hydroelectric Production Technician in the upper inner left breast immediately adjacent to the Q clip. There is also an hourglass clip which corresponds to prior benign and concordant MRI biopsy. IMPRESSION: Post procedure mammogram shows successful clip placement. Mammogram BI-RADS: Post-procedure mammogram for marker placement Interpreting Radiologist: Clarisa Villegas M.D. Fast Food Cashier: ALBA Transcritawanna Date/Time: Dec 13 2023 1:28P Dictated by : CLARISA VILLEGAS MD This examination was interpreted and the report reviewed and electronically signed by: CLARISA VILLEGAS MD on Dec 13 2023 3:25PM EST [id number] Normal [facility] US LOC BREAST LTon 12-12 [facility] US LOC BREAST LT * * *Final Report* * * DATE OF EXAM: Dec 13 2023 1:55PM [facility] 0599 - [facility] US LOC BREAST LT / PROCEDURE REASON: Abnormal finding on breast imaging * * * * Physician Interpretation * * * * [place] [address] HISTORY: 88 year old patient presents for [...] Villegas performed the entire procedure without an clinical data assistant. Correlation is made to exams dated: [...] targeted area. Reflector placement/activation was verified with Hydroelectric Production Technician Check following the procedure. IMPRESSION: Site 1: Successful infrared activated electromagnetic reflector device placement for biopsy clip in the left breast at 11 o'clock 3 cm from the nipple with no apparent complications. A specimen radiograph is recommended. The specimen radiograph should include the Hydroelectric Production Technician reflector and the Q shaped clip. Interpreting Radiologist: Clarisa Villegas M.D. Fast Food Cashier: ALBA Transcribe Date/Time: Dec 13 2023 1:27P Dictated by : CLARISA VILLEGAS MD This examination was interpreted and the report reviewed and electronically signed by: CLARISA VILLEGAS MD on Dec 13 2023 3:24PM EST [id number] Normal [facility] MG Breast - left Diagnostic for implanton 12-13-2023 * * *Final Report* * * DATE OF EXAM: Dec 13 2023 1:54PM [facility] 0621 - [facility] DIAGNOSTIC LT / PROCEDURE REASON: Abnormal finding on breast imaging * * * * Physician Interpretation * * * * [place] [address] HISTORY: Patient is 88 years old and [...] obscure small masses. There is a Jazmyn Hydroelectric Production Technician in the upper inner left breast immediately adjacent to the Q clip. There is also an hourglass clip which corresponds to prior benign and concordant MRI biopsy. DIVISION OF RADIOLOGY Provider, Gilda Santiago - 12/13/2023 * * *Final Report* * * DATE OF EXAM: Dec 13 2023 1:54PM [facility] 0621 - [facility] DIAGNOSTIC LT / PROCEDURE REASON: Abnormal finding on breast imaging * * * * Physician Interpretation * * * * [place] [address] HISTORY: Patient is 88 years old and [...] obscure small masses. There is a Jazmyn Hydroelectric Production Technician in the upper inner left breast immediately adjacent to the Q clip. There is also an hourglass clip which corresponds to prior benign and concordant MRI biopsy. IMPRESSION IMPRESSION: Post procedure mammogram shows successful clip placement. Mammogram BI-RADS: Post-procedure mammogram for marker placement Interpreting Radiologist: Clarisa Villegas M.D. Fast Food Cashier: ALBA Transcribe Date/Time: Dec 13 2023 1:28P Dictated by : CLARISA VILLEGAS MD This examination was interpreted and the report reviewed and electronically signed by: CLARISA VILLEGAS MD on Dec 13 2023 3:25PM [facility] MG Breast - left Diagnostic for implantOrdered By: Cc Provider on 12-13-2023 [facility] No Panel Informationon 12-12 Radiology Study observation (narrative) [facility] US Guidance for localization of Breast - lefton 12-13-2023 IMPRESSION: Site 1: Successful infrared activated electromagnetic reflector device placement for biopsy clip in the left breast at 11 o'clock 3 cm from the nipple with no apparent complications. A specimen radiograph is recommended. The specimen radiograph should include the Hydroelectric Production Technician reflector and the Q shaped clip. Interpreting Radiologist: Clarisa Villegas M.D. Fast Food Cashier: ALBA Transcribe Date/Time: Dec 13 2023 1:27P Dictated by : CLARISA VILLEGAS MD This examination was interpreted and the report reviewed and electronically signed by: CLARISA VILLEGAS MD on Dec 13 2023 3:24PM [facility] DIVISION OF RADIOLOGY * * *Final Report* * * DATE OF EXAM: Dec 13 2023 1:55PM [facility] 0599 - [place] LOC BREAST LT / PROCEDURE REASON: Abnormal finding on breast imaging * * * * Physician Interpretation * * * * [place] [address] HISTORY: 88 year old patient presents for [...] Villegas performed the entire procedure without an clinical data assistant. Correlation is made to exams dated: [...] targeted area. Reflector placement/activation was verified with Hydroelectric Production Technician Check following the procedure. DIVISION OF RADIOLOGY [facility] 12/13/2023 * * *Final Report* * * DATE OF EXAM: Dec 13 2023 1:55PM [facility] 0599 - [place] LOC BREAST LT / PROCEDURE REASON: Abnormal finding on breast imaging * * * * Physician Interpretation * * * * [place] [address] HISTORY: 88 year old patient presents for [...] Villegas performed the entire procedure without an clinical data assistant. Correlation is made to exams dated: [...] targeted area. Reflector placement/activation was verified with Hydroelectric Production Technician Check following the procedure. IMPRESSION IMPRESSION: Site 1: Successful infrared activated electromagnetic reflector device placement for biopsy clip in the left breast at 11 o'clock 3 cm from the nipple with no apparent complications. A specimen radiograph is recommended. The specimen radiograph should include the Hydroelectric Production Technician reflector and the Q shaped clip. Interpreting Radiologist: Clarisa Villegas M.D. Fast Food Cashier: ALBA Transcribe Date/Time: Dec 13 2023 1:27P Dictated by : CLARISA VILLEGAS MD This examination was interpreted and the report reviewed and electronically signed by: CLARISA VILLEGAS MD on Dec 13 2023 3:24PM [facility] CNOVon 12-11-2023 CNOV Office Visit (INTMWS ) -------- ALBERTO RODRIGUEZ ([id number]) 1935 F Date Time Provider Department 12/11/23 [...] mass was seen. 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 No problem-specific Assessment AND Plan [...] armin derm (more content not included)... Normal [facility] CBC W Auto Differential pane l (Bld)on 12-08-2023 Basophils (Bld) [#/Vol] 0.08 10*3/uL [facility] Basophils/100 WBC (Bld) 0.9 % [facility] Differential cell count method Nom (Bld) Auto [facility] Eosinophils (Bld) [#/Vol] 0.09 10*3/uL [facility] Eosinophils/100 WBC (Bld) 1.1 % [facility] Erythrocyte distribution width (RBC) [Ratio] 15.9 % High 11.5 - 15.0 % [facility] Hematocrit (Bld) [Volume fraction] 36.1 % 36.0 - 46.0 % [facility] Hemoglobin (Bld) [Mass/Vol] 11.6 g/dL 11.5 - 15.5 g/dL [facility] Immature granulocytes (Bld) [#/Vol] 0.04 10*3/uL [facility] Immature granulocytes/100 WBC (Bld) 0.5 % [facility] Interpretation and review of laboratory results Abnormal [facility] Lymphocytes (Bld) [#/Vol] 2.03 10*3/uL [facility] Lymphocytes/100 WBC (Bld) 23.9 % [facility] MCH (RBC) [Entitic mass] 27.1 pg 26.0 - 34.0 pg [facility] MCHC (RBC) [Mass/Vol] 32.1 g/dL 30.5 - 36.0 g/dL [facility] MCV (RBC) [Entitic vol] 84.3 fL 80.0 - 100.0 fL [facility] Monocytes (Bld) [#/Vol] 0.56 10*3/uL [facility] Monocytes/100 WBC (Bld) 6.6 % [facility] Neutrophils (Bld) [#/Vol] 5.70 10*3/uL [facility] Neutrophils/100 WBC (Bld) 67.0 % [facility] Nucleated RBC (Bld) [#/Vol] [facility] Nucleated RBC/100 WBC (Bld) [Ratio] 0.0 % /100 WBC [facility] Platelet mean volume (Bld) [Entitic vol] 8.8 fL Low 9.0 - 12.7 fL [facility] Platelets (Bld) [#/Vol] 342 10*3/uL [facility] RBC (Bld) [#/Vol] 4.28 10*6/uL 3.90 - 5.2 0 m/uL [facility] WBC (Bld) [#/Vol] 8.50 10*3/uL [facility] Basophils (Bld) [#/Vol] 0.08 10*3/uL Normal <0.11 [facility] Comment on above: Order Comment: Speci men Type: BLOOD SPECIMEN Ordering Facility: [facility] Address: [address] [place] [address] Performed By: #### 5 7021-8 #### [facility] CLIA [id number] [address] [place] [address] [place] Basophils/100 WBC (Bld) 0.9 % Normal [facility] Comment on above: Order Comment: Speci men Type: BLOOD SPECIMEN Ordering Facility: [facility] Address: [address] [place] [address] Performed By: #### 5 7021-8 #### [facility] CLIA [id number] [address] [place] [address] [place] Differential cell count method Nom (Bld) Auto Normal [facility] Comment on above: Order Comment: Speci men Type: BLOOD SPECIMEN Ordering Facility: [facility] Address: [address] [place] [address] Performed By: #### 5 7021-8 #### [facility] CLIA [id number] [address] [place] [address] [place] Eosinophils (Bld) [#/Vol] 0.09 10*3/uL Normal <0.46 [facility] Comment on above: Order Comment: Speci men Type: BLOOD SPECIMEN Ordering Facility: [facility] Address: [address] [place] [address] Performed By: #### 5 7021-8 #### [facility] CLIA [id number] [address] [place] [address] [place] Eosinophils/100 WBC (Bld) 1.1 % Normal [facility] Comment on above: Order Comment: Speci men Type: BLOOD SPECIMEN Ordering Facility: [facility] Address: [address] [place] [address] Performed By: #### 5 7021-8 #### [facility] CLIA [id number] [address] [place] [address] [place] Erythrocyte distribution width (RBC) [Ratio] 15.9 % High 11.5-15.0 [facility] Comment on above: Order Comment: Speci men Type: BLOOD SPECIMEN Ordering Facility: [facility] Address: [address] [place], [place] [address] Performed By: #### 5 7021-8 #### [facility] CLIA [id number] [address] [place] [address] [place] Hematocrit (Bld) [Volume fraction] 36.1 % Normal 36.0-46.0 [facility] Comment on above: Order Comment: Speci men Type: BLOOD SPECIMEN Ordering Facility: [facility] Address: [address] [place] [address] Performed By: #### 5 7021-8 #### [facility] CLIA [id number] [address] [place] [address] [place] Hemoglobin (Bld) [Mass/Vol] 11.6 g/dL Normal 11.5-15.5 [facility] Comment on above: Order Comment: Speci men Type: BLOOD SPECIMEN Ordering Facility: [facility] Address: [address] [place] [address] Performed By: #### 5 7021-8 #### [facility] CLIA [id number] [address] [place] [address] [place] Immature granulocytes (Bld) [#/Vol] 0.04 10*3/uL Normal <0.10 [facility] Comment on above: Order Comment: Speci men Type: BLOOD SPECIMEN Ordering Facility: [facility] Address: [address] [place], [place] [address] Performed By: #### 5 7021-8 #### [facility] CLIA [id number] [address] [place] [address] [place] Immature granulocytes/100 WBC (Bld) 0.5 % Normal [facility] Comment on above: Order Comment: Speci men Type: BLOOD SPECIMEN Ordering Facility: [facility] Address: [address] [place] [address] Performed By: #### 5 7021-8 #### [facility] CLIA [id number] [address] [place] [address] [place] Lymphocytes (Bld) [#/Vol] 2.03 10*3/uL Normal 1.00-4.00 [facility] Comment on above: Order Comment: Speci men Type: BLOOD SPECIMEN Ordering Facility: [facility] Address: [address] [place] [address] Performed By: #### 5 7021-8 #### [facility] CLIA [id number] [address] [place] [address] [place] Lymphocytes/100 WBC (Bld) 23.9 % Normal [facility] Comment on above: Order Comment: Speci men Type: BLOOD SPECIMEN Ordering Facility: [facility] Address: [address] [place] [address] Performed By: #### 5 7021-8 #### [facility] CLIA [id number] [address] [place] [address] [place] MCH (RBC) [Entitic mass] 27.1 pg Normal 26.0-34.0 [facility] Comment on above: Order Comment: Speci men Type: BLOOD SPECIMEN Ordering Facility: [facility] Address: [address] [place], [place] [address] Performed By: #### 5 7021-8 #### [facility] CLIA [id number] [address] [place] [address] [place] MCHC (RBC) [Mass/Vol] 32.1 g/dL Normal 30.5-36.0 [facility] Comment on above: Order Comment: Speci men Type: BLOOD SPECIMEN Ordering Facility: [facility] Address: [address] [place] [address] Performed By: #### 5 7021-8 #### [facility] CLIA [id number] [address] [place] [address] [place] MCV (RBC) [Entitic vol] 84.3 fL Normal 80.0-100.0 [facility] Comment on above: Order Comment: Speci men Type: BLOOD SPECIMEN Ordering Facility: [facility] Address: [address] [place] [address] Performed By: #### 5 7021-8 #### [facility] CLIA [id number] [address] [place] [address] [place] Monocytes (Bld) [#/Vol] 0.56 10*3/uL Normal <0.87 [facility] Comment on above: Order Comment: Speci men Type: BLOOD SPECIMEN Ordering Facility: [facility] Address: [address] [place] [address] Performed By: #### 5 7021-8 #### [facility] CLIA [id number] [address] [place] [address] [place] Monocytes/100 WBC (Bld) 6.6 % Normal [facility] Comment on above: Order Comment: Speci men Type: BLOOD SPECIMEN Ordering Facility: [facility] Address: [address] [place] [address] Performed By: #### 5 7021-8 #### [facility] CLIA [id number] [address] [place] [address] [place] Neutrophils (Bld) [#/Vol] 5.70 10*3/uL Normal 1.45-7.50 [facility] Comment on above: Order Comment: Speci men Type: BLOOD SPECIMEN Ordering Facility: [facility] Address: [address] [place] [address] Performed By: #### 5 7021-8 #### [facility] CLIA [id number] [address] [place] [address] [place] Neutrophils/100 WBC (Bld) 67.0 % Normal [facility] Comment on above: Order Comment: Speci men Type: BLOOD SPECIMEN Ordering Facility: [facility] Address: [address] [place] [address] Performed By: #### 5 7021-8 #### [facility] CLIA [id number] [address] [place] [address] [place] Nucleated RBC (Bld) [#/Vol] 10*3/uL Normal <0.01 [facility] Comment on above: Order Comment: Speci men Type: BLOOD SPECIMEN Ordering Facility: [facility] Address: [address] [place] [address] Performed By: #### 5 7021-8 #### [facility] CLIA [id number] [address] [place] [address] [place] Nucleated RBC/100 WBC (Bld) [Ratio] 0.0 /100 WBC Normal [facility] Comment on above: Order Comment: Speci men Type: BLOOD SPECIMEN Ordering Facility: [facility] Address: [address] [place] [address] Performed By: #### 5 7021-8 #### [facility] CLIA [id number] [address] [place] [address] [place] Platelet mean volume (Bld) [Entitic vol] 8.8 fL Low 9.0-12.7 [facility] Comment on above: Order Comment: Speci men Type: BLOOD SPECIMEN Ordering Facility: [facility] Address: [address] [place] [address] Performed By: #### 5 7021-8 #### [facility] CLIA [id number] [address] [place] [address] [place] Platelets (Bld) [#/Vol] 342 10*3/uL Normal 150-400 [facility] Comment on above: Order Comment: Speci men Type: BLOOD SPECIMEN Ordering Facility: [facility] Address: [address] [place] [address] Performed By: #### 5 7021-8 #### [facility] CLIA [id number] [address] [place] [address] [place] RBC (Bld) [#/Vol] 4.28 10*6/uL Normal 3.90-5.20 [facility] Comment on above: Order Comment: Speci men Type: BLOOD SPECIMEN Ordering Facility: [facility] Address: [address] [place] [address] Performed By: #### 5 7021-8 #### [facility] CLIA [id number] [address] [place] [address] [place] WBC (Bld) [#/Vol] 8.50 10*3/uL Normal 3.70-11.00 [facility] Comment on above: Order Comment: Speci men Type: BLOOD SPECIMEN Ordering Facility: [facility] Address: [address] [place] [address] Performed By: #### 5 7021-8 #### [facility] CLIA [id number] [address] [place] [address] [place] Comprehensive metabolic 2000 panelOrdered By: Mindy Wagner on 12-08-2023 Albumin [Mass/Vol] 4.1 g/dL 3.9 - 4.9 g/dL [facility] ALP [Catalytic activity/Vol] 115 U/L 34 - 123 U/L [facility] ALT [Catalytic activity/Vol] 10 U/L 7 - 38 U/L [facility] Anion gap [Moles/Vol] 12 mmol/L 8 - 15 mmol/L [facility] AST [Catalytic activity/Vol] 20 U/L 13 - 35 U/L [facility] Bilirubin [Mass/Vol] 0.2 mg/dL 0.2 - 1 .3 mg/dL [facility] Calcium [Mass/Vol] 9.9 mg/dL 8.5 - 10. 2 mg/dL [facility] Chloride [Moles/Vol] 101 mmol/L 98 - 10 7 mmol/L [facility] CO2 [Moles/Vol] 21 mmol/L Low 22 - 30 mmol/L [facility] Creatinine [Mass/Vol] 0.76 mg/dL 0.58 - 0.96 mg/dL [facility] GFR/1.73 sq M.predicted among non-blacks MDRD (S/P/Bld) [Vol rate/Area] 76 mL/min/{1.73_m2} - PINF [facility] Comment on above: Estimated Glomerular Filtration Rate [...] [Mass/Vol] 87 mg/dL 74 - 99 mg/dL [facility] Comment on above: The [place] Diabete s Association (ADA) provides guidance for [...] Standards of Medical Care in Diabetes 2016, [place] Diabetes Association. Diabetes Care. 2016.39(Suppl 1). Interpretation and review of laboratory results Abnormal [facility] Potassium [Moles/Vol] 4.3 mmol/L 3.7 - 5.1 mmol/L [facility] Protein [Mass/Vol] 7.4 g/dL 6.3 - 8.0 g/dL [facility] Sodium [Moles/Vol] 134 mmol/L Low 136 - 144 mmol/L [facility] Urea nitrogen [Mass/Vol] 15 mg/dL 7 - 21 mg/dL [facility] Comprehensive metabolic 2000 panelon 12-08-2023 Albumin [Mass/Vol] 4.1 g/dL Normal 3.9-4.9 [facility] Comment on above: Order Comment: Speci men Type: BLOOD SPECIMEN Ordering Facility: [facility] Address: [address] [place] [address] Performed By: #### 2 4323-8 #### [facility] CLIA [id number] [address] [place] [address] [place] ALP [Catalytic activity/Vol] 115 U/L Normal 34-123 [facility] Comment on above: Order Comment: Speci men Type: BLOOD SPECIMEN Ordering Facility: [facility] Address: [address] [place] [address] Performed By: #### 2 4323-8 #### [facility] CLIA [id number] [address] [place] [address] [place] ALT [Catalytic activity/Vol] 10 U/L Normal 7-38 [facility] Comment on above: Order Comment: Speci men Type: BLOOD SPECIMEN Ordering Facility: [facility] Address: [address] [place] [address] Performed By: #### 2 4323-8 #### [facility] CLIA [id number] [address] [place] [address] [place] Anion gap [Moles/Vol] 12 mmol/L Normal 8-15 [facility] Comment on above: Order Comment: Speci men Type: BLOOD SPECIMEN Ordering Facility: [facility] Address: [address] [place] [address] Performed By: #### 2 4323-8 #### [facility] CLIA [id number] [address] [place] [address] [place] AST [Catalytic activity/Vol] 20 U/L Normal 13-35 [facility] Comment on above: Order Comment: Speci men Type: BLOOD SPECIMEN Ordering Facility: [facility] Address: [address] [place] [address] Performed By: #### 2 4323-8 #### [facility] CLIA [id number] [address] [place] [address] [place] Bilirubin [Mass/Vol] 0.2 mg/dL Normal 0.2-1.3 [facility] Comment on above: Order Comment: Speci men Type: BLOOD SPECIMEN Ordering Facility: [facility] Address: [address] [place] [address] Performed By: #### 2 4323-8 #### [facility] CLIA [id number] [address] [place] [address] [place] Calcium [Mass/Vol] 9.9 mg/dL Normal 8.5-10.2 [facility] Comment on above: Order Comment: Speci men Type: BLOOD SPECIMEN Ordering Facility: [facility] Address: [address] [place] [address] Performed By: #### 2 4323-8 #### [facility] CLIA [id number] [address] [place] [address] [place] Chloride [Moles/Vol] 101 mmol/L Normal 98-107 [facility] Comment on above: Order Comment: Speci men Type: BLOOD SPECIMEN Ordering Facility: [facility] Address: [address] [place] [address] Performed By: #### 2 4323-8 #### [facility] CLIA [id number] [address] [place] [address] [place] CO2 [Moles/Vol] 21 mmol/L Low 22-30 [facility] Comment on above: Order Comment: Speci men Type: BLOOD SPECIMEN Ordering Facility: [facility] Address: [address] [place] [address] Performed By: #### 2 4323-8 #### [facility] CLIA [id number] [address] [place] [address] [place] Creatinine [Mass/Vol] 0.76 mg/dL Normal 0.58-0.96 [facility] Comment on above: Order Comment: [place] carbajal Type: BLOOD SPECIMEN Ordering Facility: [facility] Address: [address] [place] [address] Performed By: #### 2 4323-8 #### [facility] CLIA [id number] [address] [place] [address] [place] Creatinine and Glomerular filtration rate.predicted panel (S/P/Bld) 76 mL/min/1.73m??? Normal >=60 [facility] Comment on above: Order Comment: [place] carbajal Type: BLOOD SPECIMEN Ordering Facility: [facility] Address: [address] [place] [address] Result Comment: Analia mated Glomerular Filtration Rate [...] GFR. Performed By: #### 2 4323-8 #### [facility] [id number] [address] [place] [address] [place] Glucose [Mass/Vol] 87 mg/dL Normal 74-99 [facility] Comment on above: Order Comment: [place] carbajal Type: BLOOD SPECIMEN Ordering Facility: [facility] Address: [address] [place] [address] Result Comment: [place] Diabetes Association (ADA) provides guidance for cutoff [...] Standards of Medical Care in Diabetes 2016, [place] Diabetes Association. Diabetes Care. 2016.39(Suppl 1). Performed By: #### 2 4323-8 #### [facility] [id number] [address] [place] [address] [place] Potassium [Moles/Vol] 4.3 mmol/L Normal 3.7-5.1 [facility] Comment on above: Order Comment: Talitai men Type: BLOOD SPECIMEN Ordering Facility: [facility] Address: [address] [place] [address] Performed By: #### 2 4323-8 #### [facility] [id number] [address] [place] [address] [place] Protein [Mass/Vol] 7.4 g/dL Normal 6.3-8.0 [facility] Comment on above: Order Comment: Talitai solomon Type: BLOOD SPECIMEN Ordering Facility: [facility] Address: [address] [place] [address] Performed By: #### 2 4323-8 #### [facility] [id number] [address] [place] [address] [place] Sodium [Moles/Vol] 134 mmol/L Low 136-144 [facility] Comment on above: Order Comment: Talitai men Type: BLOOD SPECIMEN Ordering Facility: [facility] Address: [address] [place] [address] Performed By: #### 2 4323-8 #### [facility] [id number] [address] [place] [address] [place] Urea nitrogen [Mass/Vol] 15 mg/dL Normal 7-21 [facility] Comment on above: Order Comment: Speci men Type: BLOOD SPECIMEN Ordering Facility: [facility] Address: [address] [place] [address] Performed By: #### 2 4323-8 #### [facility] CLIA [id number] [address] [place] [address] [place] [id number] 12-08-2023 ECG01 Ventricular Rate : 7 2 BPM Atrial Rate : 72 BPM P-R Interval : 150 ms QRS Duration : 76 ms Q-T Interval : 410 ms QTC Calculation(Bazett) : 448 ms Calculated P [place] : 67 degrees Calculated R [place] : 17 degrees Calculated T [place] : 22 degrees NORMAL SINUS RHYTHM NORMAL ECG Confirmed by DULCE BELLE DO ([id number]) on 12/11/2023 8:15:56 PM NAME : ALBERTO RODRIGUEZ PID : [id number] : 1935 Gender : Female Race : ORD : Procedure Date : Dec 08 2023 14:19:14 Edit Date : Dec 11 2023 20:15:58 Diagnosis: NORMAL SINUS RHYTHM NORMAL ECG Confirmed by DULCE BELLE DO ([id number]) on 12/11/2023 8:15:56 PM Test Reason : Location : [facility] : [facility] Overread By : DULCE BELLE DO Edited By : DULCE BELLE DO Referred By : , Acquired by : Susan vernon [facility] HISTORY PHYSICALon HISTORY PHYSICAL HNO ID: [id number] Author: ELIZABETH SMITH APRN.CNP Service: ? Author [...] Assessment: pt unaware of dx, found in [facility] with brain MRI 10/2021. Denies any deficits. [...] was from 2008, no repeat noted in [facility] TSH Date Value Ref Range Status 07/11/2023 [...] pulmonic regurgitation Recent Results (from the past 75330 hour(s)) ECHO Collection Time: 12/15/23 10:22 AM [...] 0 Appetite Score: 0 MST Score: 0 [id number] Score: Age: >=75 Sex: female CHF history: No Hypertension history: Yes Stroke/TIA/thromboemboli sm history: No Vascular disease history: No Diabetes histor (more content not included)... [facility] CNPNon 11-28-2023 CNPN Telephone (RUBI) -------- ALBERTO RODRIGUEZ ([id number]) 1935 F Date Time Provider Department 11/28/23 [...] IF UNABLE, PLEASE REFER TO [facility]. DX: EDEMA - multivitamin tablet Take 1 [...] Encounter Status:Closed by RENY LIMA on 12/01/23 [facility] CNPNon 11-23-2023 CNPN Telephone (BRCRBD) -------- ALBERTO RODRIGUEZ ([id number]) 1935 F Date Time Provider Department 11/23/23 LOY KWON BRCRBD During your visit today, we recorded the following information about you: Loy Kwon MD 11/23/2023 9:52 AM Signed LOCALIZATION IMAGE REVIEW (Please do NOT submit until entire workup complete) (if > 3 reflectors to be placed in one breast, please review with radiologist) Alberto Rodriguez [id number] 1935 WORK- UP COMPLETE? Yes Order Placed [...] IF UNABLE, PLEASE REFER TO [facility]. DX: EDEMA - multivitamin tablet Take 1 [...] Encounter Status:Closed by CLARISA VILLEGAS on 11/27/23 [facility] CNPN Telephone (BRCRBD) -------- ALBERTO RODRIGUEZ ([id number]) 1935 F Date Time Provider Department 11/23/23 [...] IF UNABLE, PLEASE REFER TO [facility]. DX: EDEMA - multivitamin tablet Take 1 [...] Encounter Status:Closed by KIMBERLY CHAVEZ on 11/23/23 [facility] CNPN Telephone (BRCRBD) -------- ALBERTO RODRIGUEZ ([id number]) 1935 F Date Time Provider Department 11/23/23 [...] Order(s):VALERI NDL LOC W VALERI GD LEFT [[id number]] Order #: [id number] FUTURE Prescriptions as of 11/23/2023 - nystatin-triamcinolone [...] IF UNABLE, PLEASE REFER TO [facility]. DX: EDEMA - multivitamin tablet Take 1 [...] Encounter Status:Closed by LOY KWON on 11/23/23 [facility] [place] 11-22-2023 CNPN Telephone (BRCRMN) -------- ALBERTO RODRIGUEZ ([id number]) 1935 F Date Time Provider Department 11/22/23 LOY KWON BRCRMN During your visit today, we recorded the following information about you: Shahid Xavier 11/22/2023 4:45 PM Signed Pt returning call from Dr. Kwon she is available now at [phone], she is requesting to speak with Dr. [...] IF UNABLE, PLEASE REFER TO [facility]. DX: EDEMA - multivitamin tablet Take 1 [...] Encounter Status:Closed by SHAHID XAVIER on 08/27/24 [facility] CNPN Telephone (RADMN) -------- ALBERTO RODRIGUEZ ([id number]) 1935 F Date Time Provider Department 11/22/23 GEORGINA CROOKS RADME During your visit today, we recorded the [...] IF UNABLE, PLEASE REFER TO [facility]. DX: EDEMA - multivitamin tablet Take 1 [...] Encounter Status:Closed by GEORGINA CROOKS on 11/22/23 [facility] Telephone (BRCRBD) -------- ALBERTO RODRIGUEZ ([id number]) 1935 F Date Time Provider Department 11/22/23 LOY KWON YoltoCRBD During your visit today, we recorded the following information about you: Loy Kwon MD 11/22/2023 8:42 AM Signed LVM - calling to review recent MR biopsy result asked her to return my call Loy Kwon MD 8:41 AM [facility] 11/22/2023 2:49 PM Addendum Patient returned your call and can be reached at [phone] until [phone] and returning [phone]. Thanks Allergies [...] IF UNABLE, PLEASE REFER TO [facility]. DX: EDEMA - multivitamin tablet Take 1 [...] Status:Closed by LOY KWON on 11/22/23 [facility] VALERI DIAGNOSTIC LTon 11-20-19 VALERI DIAGNOSTIC LT * * *Final Report* * * * * * SEE BOTTOM OF REPORT FOR ADDENDED TEXT * * * DATE OF EXAM: Nov 20 2023 2:55PM [facility] 0621 - VALERI DIAGNOSTIC LT / PROCEDURE REASON: Abnormal MRI, breast * * * * Physician Interpretation * * * * RESULT: [place] [address] - - - - - - - [...] Dr. Olsen with Dr. Thompson as an clinical data assistant. Dr. Olsen was present for all [...] location, 6 specimens were obtained using the Vyteris system. The patient received additional local anesthetic [...] will be issued when these become available. Fast Food Cashier: ALBA Transcribe Date/Time: Nov 20 2023 2:41P Dictated by : MARIA INES OLSEN MD This examination was interpreted and the report reviewed and electronically signed by: MARIA INES OLSEN MD on Nov 20 2023 4:38PM EST This document has been addended by: MARIA INES OLSEN MD on Nov 22 2023 12:07PM EST [id number] Normal [facility] Breast - left Diagnostic for implanton 11-20-2023 IMPRESSION: MRI BIOP SY MRI biopsy of the LEFT breast non-mass enhancement in the upper inner quadrant with placement of an HOURGLASS clip was successful with no apparent post procedure complications. Waiting for pathology results. A final report will be issued when these become available. Fast Food Cashier: ALBA Transcribe Date/Time: Nov 20 2023 2:41P Dictated by : MARIA INES OLSEN MD This examination was interpreted and the report reviewed and electronically signed by: MARIA INES OLSEN MD on Nov 20 2023 4:38PM [facility] DIVISION OF RADIOLOGY * * *Final Report* * * DATE OF EXAM: Nov 20 2023 2:55PM [facility] - [facility] DIAGNOSTIC LT / PROCEDURE REASON: Abnormal MRI, breast * * * * Physician Interpretation * * * * RESULT: [place] [id number] [facility] [address] [place] [id number] HISTORY: Patient presents today for MRI guided [...] Dr. Olsen with Dr. Thompson as an clinical data assistant. Dr. Olsen was present for all [...] location, 6 specimens were obtained using the Vyteris system. The patient received additional local anesthetic during the procedure. An HOURGLASS-shaped clip was inserted into the biopsy cavity. A skin closure strip and a sterile dressing were applied to the access site. Post procedure mammographic and MRI imaging demonstrates the biopsy marker at the targeted area. The specimens were sent to the laboratory for pathological analysis. DIVISION OF RADIOLOGY Provider, [facility] - 11/20/2023 * * *Final Report* * * DATE OF EXAM: Nov 20 2023 2:55PM [facility] - [facility] DIAGNOSTIC LT / PROCEDURE REASON: Abnormal MRI, breast * * * * Physician Interpretation * * * * RESULT: [address] [place] [id number] HISTORY: Patient presents today for MRI guided [...] Dr. Olsen with Dr. Thompson as an clinical data assistant. Dr. Olsen was present for all [...] location, 6 specimens were obtained using the Vyteris system. The patient received additional local anesthetic [...] will be issued when these become available. Fast Food Cashier: ALBA Transcribe Date/Time: Nov 20 2023 2:41P Dictated by : MARIA INES OLSEN MD This examination was interpreted and the report reviewed and electronically signed by: MARIA INES OLSEN MD on Nov 20 2023 4:38PM EST [facility] Radiology Study observation (narrative) [facility] MR Breast - left WO and W co ntrast Dalia 11-20-2023 IMPRESSION: MRI BIOP SY MRI biopsy of the LEFT breast non-mass enhancement in the upper inner quadrant with placement of an HOURGLASS clip was successful with no apparent post procedure complications. Waiting for pathology results. A final report will be issued when these become available. Fast Food Cashier: ALBA Transcribe Date/Time: Nov 20 2023 1:28P Dictated by : MARIA INES OLSEN MD This examination was interpreted and the report reviewed and electronically signed by: MARIA INES OLSEN MD on Nov 20 2023 4:38PM [facility] DIVISION OF RADIOLOGY * * *Final Report* * * DATE OF EXAM: Nov 20 2023 2:29PM [facility] 0695 - MRI BREAST BX WO/W IVCON LT / PROCEDURE REASON: Abnormal MRI, breast * * * * Physician Interpretation * * * * [place] [address] HISTORY: Patient presents today for MRI guided [...] Dr. Olsen with Dr. Thompson as an clinical data assistant. Dr. Olsen was present for all [...] location, 6 specimens were obtained using the Vyteris system. The patient received additional local anesthetic during the procedure. An HOURGLASS-shaped clip was inserted into the biopsy cavity. A skin closure strip and a sterile dressing were applied to the access site. Post procedure mammographic and MRI imaging demonstrates the biopsy marker at the targeted area. The specimens were sent to the laboratory for pathological analysis. DIVISION OF RADIOLOGY Provider, [facility] - 11/20/2023 * * *Final Report* * * DATE OF EXAM: Nov 20 2023 2:29PM [facility] 0695 - MRI BREAST BX WO/W IVCON LT / PROCEDURE REASON: Abnormal MRI, breast * * * * Physician Interpretation * * * * [place] [address] HISTORY: Patient presents today for MRI guided [...] Dr. Olsen with Dr. Thompson as an clinical data assistant. Dr. Olsen was present for all [...] location, 6 specimens were obtained using the Vyteris system. The patient received additional local anesthetic [...] will be issued when these become available. Fast Food Cashier: ALBA Transcribe Date/Time: Nov 20 2023 1:28P Dictated by : MARIA INES OLSEN MD This examination was interpreted and the report reviewed and electronically signed by: MARIA INES OLSEN MD on Nov 20 2023 4:38PM [facility] Radiology Study observation (narrative) [facility] MRI BREAST BX WO/W IVCON LTo n [...] * Physician Interpretation * * * * [place] [address] - - - - - - - [...] Dr. Olsen with Dr. Thompson as an clinical data assistant. Dr. Olsen was present for all [...] location, 6 specimens were obtained using the Vyteris system. The patient received additional local anesthetic [...] will be issued when these become available. Fast Food Cashier: ALBA Transcribe Date/Time: Nov 20 2023 1:28P Dictated by : MARIA INES OLSEN MD This examination was interpreted and the report reviewed and electronically signed by: MARIA INES OLSEN MD on Nov 20 2023 4:38PM EST This document has been addended by: MARIA INES OLSEN MD on Nov 22 2023 12:07PM EST [id number] Normal [facility] No Panel InformationOrdered By: Ccf Provider on 11-20-2023 [facility] SURGICAL PATHOLOGYon 024 CASE REPORT Normal [facility] Comment on above: Order Comment: [place] carbajal Type: TISSUE SPECIMEN Ordering Facility: [facility] Address: [address] [place] [address] Result Comment: Surg ica Pathology Report Case: [id number] Authorizing Provider: Maria Ines Olsen MD Collected: 11/20/2023 02:07 PM Ordering Location: MRI A10 Received: 11/20/2023 05:03 PM Pathologist: Rolando Walters MD Specimen: Breast, Left, Core Biopsy, UIQ MRI biopsy - hourglass clip Performed By: #### S #### [facility] CLIA [id number] [address] [place] [address] [place] FINAL DIAGNOSIS Normal [facility] Comment on above: Order Comment: [place] carbajal Type: TISSUE SPECIMEN Ordering Facility: [facility] Address: [address] [place] [address] Result Comment: Left breast, UIQ, nonmass enhancement, MRI-guided core biopsy, with hourglass clip placement: - 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 RSH/rsh 11/21/23 Performed By: #### S #### [facility] CLIA [id number] [address] [place] [address] STATES OF [facility] FINAL PERFORMING LAB Normal [facility] Comment on above: Order Comment: Speci men Type: TISSUE SPECIMEN Ordering Facility: [facility] Address: [address] [place] [address] Result Comment: Diag nostic interpretation performed at [facility], [address] [place] [address] CLIA# [id number] Felt Machine Mechanic: Tavo Roberts M.D. Performed By: #### S #### [facility] CLIA [id number] [address] [place] [address] OF [facility] GROSS DESCRIPTION Normal [facility] Comment on above: Order Comment: Speci men Type: TISSUE SPECIMEN Ordering Facility: [facility] Address: [address] [place] [address] Result Comment: A. B reast, Left, Core [...] in two cassettes. Gross examination performed at [facility], [address] [place] [address] KK November 20, 2023 7:56 PM Performed By: #### S #### [facility] CLIA [id number] [address] [place] [address] [place] CBC W Auto Differential pane l (Bld)on 11-08-2023 Basophils (Bld) [#/Vol] 0.07 10*3/uL [facility] Basophils/100 WBC (Bld) 1.0 % [facility] Differential cell count method Nom (Bld) Auto [facility] Eosinophils (Bld) [#/Vol] 0.12 10*3/uL [facility] Eosinophils/100 WBC (Bld) 1.7 % [facility] Erythrocyte distribution width (RBC) [Ratio] 16.9 % High 11.5 - 15.0 % [facility] Hematocrit (Bld) [Volume fraction] 35.6 % Low 36.0 - 46.0 % [facility] Hemoglobin (Bld) [Mass/Vol] 11.2 g/dL Low 11.5 - 15.5 g/dL [facility] Immature granulocytes (Bld) [#/Vol] 0.03 10*3/uL [facility] Immature granulocytes/100 WBC (Bld) 0.4 % [facility] Interpretation and review of laboratory results Abnormal [facility] Lymphocytes (Bld) [#/Vol] 2.07 10*3/uL [facility] Lymphocytes/100 WBC (Bld) 28.6 % [facility] MCH (RBC) [Entitic mass] 26.7 pg 26.0 - 34.0 pg [facility] MCHC (RBC) [Mass/Vol] 31.5 g/dL 30.5 - 36.0 g/dL [facility] MCV (RBC) [Entitic vol] 85.0 fL 80.0 - 100.0 fL [facility] Monocytes (Bld) [#/Vol] 0.54 10*3/uL [facility] Monocytes/100 WBC (Bld) 7.5 % [facility] Neutrophils (Bld) [#/Vol] 4.41 10*3/uL [facility] Neutrophils/100 WBC (Bld) 60.8 % [facility] Nucleated RBC (Bld) [#/Vol] [facility] Nucleated RBC/100 WBC (Bld) [Ratio] 0.0 % /100 WBC [facility] Platelet mean volume (Bld) [Entitic vol] 8.6 fL Low 9.0 - 12.7 fL [facility] Platelets (Bld) [#/Vol] 305 10*3/uL [facility] RBC (Bld) [#/Vol] 4.19 10*6/uL 3.90 - 5.2 0 m/uL [facility] WBC (Bld) [#/Vol] 7.24 10*3/uL [facility] Basophils (Bld) [#/Vol] 0.07 10*3/uL Normal <0.11 [facility] Comment on above: Order Comment: Speci men Type: BLOOD SPECIMEN Ordering Facility: [facility] Address: [address] [place] [address] Performed By: #### 5 7021-8 #### [facility] CLIA [id number] [address] [place] [address] [place] Basophils/100 WBC (Bld) 1.0 % Normal [facility] Comment on above: Order Comment: Speci men Type: BLOOD SPECIMEN Ordering Facility: [facility] Address: [address] [place] [address] Performed By: #### 5 7021-8 #### [facility] CLIA [id number] [address] [place] [address] [place] Differential cell count method Nom (Bld) Auto Normal [facility] Comment on above: Order Comment: Speci men Type: BLOOD SPECIMEN Order[facility] Facility: [facility] Address: [address] [place] [address] Performed By: #### 5 7021-8 #### [facility] CLIA [id number] [address] [place] [address] [place] Eosinophils (Bld) [#/Vol] 0.12 10*3/uL Normal <0.46 [facility] Comment on above: Order Comment: Speci men Type: BLOOD SPECIMEN Order[facility] Facility: [facility] Address: [address] [place] [address] Performed By: #### 5 7021-8 #### [facility] CLIA [id number] [address] [place] [address] [place] Eosinophils/100 WBC (Bld) 1.7 % Normal [facility] Comment on above: Order Comment: Speci men Type: BLOOD SPECIMEN Ordering Facility: [facility] Address: [address] [place] [address] Performed By: #### 5 7021-8 #### [facility] CLIA [id number] [address] [place] [address] [place] Erythrocyte distribution width (RBC) [Ratio] 16.9 % High 11.5-15.0 [facility] Comment on above: Order Comment: Speci men Type: BLOOD SPECIMEN Ordering Facility: [facility] Address: [address] [place] [address] Performed By: #### 5 7021-8 #### [facility] CLIA [id number] [address] [place] [address] [place] Hematocrit (Bld) [Volume fraction] 35.6 % Low 36.0-46.0 [facility] Comment on above: Order Comment: Speci men Type: BLOOD SPECIMEN Ordering Facility: [facility] Address: [address] [place] [address] Performed By: #### 5 7021-8 #### [facility] CLIA [id number] [address] [place] [address] [place] Hemoglobin (Bld) [Mass/Vol] 11.2 g/dL Low 11.5-15.5 [facility] Comment on above: Order Comment: Speci men Type: BLOOD SPECIMEN Ordering Facility: [facility] Address: [address] [place] [address] Performed By: #### 5 7021-8 #### [facility] CLIA [id number] [address] [place] [address] [place] Immature granulocytes (Bld) [#/Vol] 0.03 10*3/uL Normal <0.10 [facility] Comment on above: Order Comment: Speci men Type: BLOOD SPECIMEN Ordering Facility: [facility] Address: [address] [place] [address] Performed By: #### 5 7021-8 #### [facility] CLIA [id number] [address] [place] [address] [place] Immature granulocytes/100 WBC (Bld) 0.4 % Normal [facility] Comment on above: Order Comment: Speci men Type: BLOOD SPECIMEN Ordering Facility: [facility] Address: [address] [place] [address] Performed By: #### 5 7021-8 #### [facility] CLIA [id number] [address] [place] [address] [place] Lymphocytes (Bld) [#/Vol] 2.07 10*3/uL Normal 1.00-4.00 [facility] Comment on above: Order Comment: Speci men Type: BLOOD SPECIMEN Ordering Facility: [facility] Address: [address] [place] [address] Performed By: #### 5 7021-8 #### [facility] CLIA [id number] [address] [place] [address] [place] Lymphocytes/100 WBC (Bld) 28.6 % Normal [facility] Comment on above: Order Comment: Speci men Type: BLOOD SPECIMEN Ordering Facility: [facility] Address: [address] [place] [address] Performed By: #### 5 7021-8 #### [facility] CLIA [id number] [address] [place] [address] [place] MCH (RBC) [Entitic mass] 26.7 pg Normal 26.0-34.0 [facility] Comment on above: Order Comment: Speci men Type: BLOOD SPECIMEN Ordering Facility: [facility] Address: [address] [place] [address] Performed By: #### 5 7021-8 #### [facility] CLIA [id number] [address] [place] [address] [place] MCHC (RBC) [Mass/Vol] 31.5 g/dL Normal 30.5-36.0 [facility] Comment on above: Order Comment: Speci men Type: BLOOD SPECIMEN Ordering Facility: [facility] Address: [address] [place] [address] Performed By: #### 5 7021-8 #### [facility] CLIA [id number] [address] [place] [address] [place] MCV (RBC) [Entitic vol] 85.0 fL Normal 80.0-100.0 [facility] Comment on above: Order Comment: Speci men Type: BLOOD SPECIMEN Ordering Facility: [facility] Address: [address] [place] [address] Performed By: #### 5 7021-8 #### [facility] CLIA [id number] [address] [place] [address] [place] Monocytes (Bld) [#/Vol] 0.54 10*3/uL Normal <0.87 [facility] Comment on above: Order Comment: Speci men Type: BLOOD SPECIMEN Ordering Facility: [facility] Address: [address] [place] [address] Performed By: #### 5 7021-8 #### [facility] CLIA [id number] [address] [place] [address] [place] Monocytes/100 WBC (Bld) 7.5 % Normal [facility] Comment on above: Order Comment: Speci men Type: BLOOD SPECIMEN Ordering Facility: [facility] Address: [address] [place] [address] Performed By: #### 5 7021-8 #### [facility] CLIA [id number] [address] [place] [address] [place] Neutrophils (Bld) [#/Vol] 4.41 10*3/uL Normal 1.45-7.50 [facility] Comment on above: Order Comment: Speci men Type: BLOOD SPECIMEN Ordering Facility: [facility] Address: [address] [place] [address] Performed By: #### 5 7021-8 #### [facility] CLIA [id number] [address] [place] [address] [place] Neutrophils/100 WBC (Bld) 60.8 % Normal [facility] Comment on above: Order Comment: Speci men Type: BLOOD SPECIMEN Ordering Facility: [facility] Address: [address] [place] [address] Performed By: #### 5 7021-8 #### [facility] CLIA [id number] [address] [place] [address] [place] Nucleated RBC (Bld) [#/Vol] 10*3/uL Normal <0.01 [facility] Comment on above: Order Comment: Speci men Type: BLOOD SPECIMEN Ordering Facility: [facility] Address: [address] [place] [address] Performed By: #### 5 7021-8 #### [facility] CLIA [id number] [address] [place] [address] [place] Nucleated RBC/100 WBC (Bld) [Ratio] 0.0 /100 WBC Normal [facility] Comment on above: Order Comment: Speci men Type: BLOOD SPECIMEN Ordering Facility: [facility] Address: [address] [place] [address] Performed By: #### 5 7021-8 #### [facility] CLIA [id number] [address] [place] [address] [place] Platelet mean volume (Bld) [Entitic vol] 8.6 fL Low 9.0-12.7 [facility] Comment on above: Order Comment: Speci men Type: BLOOD SPECIMEN Ordering Facility: [facility] Address: [address] [place] [address] Performed By: #### 5 7021-8 #### [facility] CLIA [id number] [address] [place] [address] [place] Platelets (Bld) [#/Vol] 305 10*3/uL Normal 150-400 [facility] Comment on above: Order Comment: Speci men Type: BLOOD SPECIMEN Ordering Facility: [facility] Address: [address] [place] [address] Performed By: #### 5 7021-8 #### [facility] CLIA [id number] [address] [place] [address] [place] RBC (Bld) [#/Vol] 4.19 10*6/uL Normal 3.90-5.20 [facility] Comment on above: Order Comment: Speci men Type: BLOOD SPECIMEN Ordering Facility: [facility] Address: [address] [place] [address] Performed By: #### 5 7021-8 #### [facility] CLIA [id number] [address] [place] [address] [place] WBC (Bld) [#/Vol] 7.24 10*3/uL Normal 3.70-11.00 [facility] Comment on above: Order Comment: Speci men Type: BLOOD SPECIMEN Ordering Facility: [facility] Address: [address] [place] [address] Performed By: #### 5 7021-8 #### [facility] CLIA [id number] [address] [place] [address] [place] CNOVon 11-08-2023 CNOV Office Visit (RADTWS ) -------- ALBERTO RODRIGUEZ ([id number]) 1935 F Date Time Provider Department 11/08/23 1:30 PM JILLIAN DELGADO During your visit today, we recorded the following information about you: Temperature Pulse Blood pressure Weight 98.3 degrees 85/minute 109/63 61 kg Height 1.53 m Hayley Glynn RN 11/08/2023 1:33 PM Signed Radiation Therapy - Nursing Note (Consult) PATIENT NAME: Alberto Rodriguez PATIENT November 08, 2023 [facility] [place] FACILITY/LOCATION: [place] Chief Complaint: Breast cancer Reason for visit: Consult. Referring physician: Internal provider Dr Kwon Subjective Data: No complaints Additional Data Do you want to see a Health Sciences Dean? Yes will schedule Are you interested in information about fertility? No Status: Post-menopausal Stress Scale: On a scale of 0 to 10, what number best describes how much distress you have experienced in the past week?(0 being no distress and 10 being extreme distress) 6 Social work notified: Pt denied need to see social work assistant at this time. SIGNED by: JULI Fisher Daesung, MD 11/10/2023 11:37 AM Signed Radiation Oncology - New Patient/Consult Note PATIENT NAME: Alberto Rodriguez PATIENT REQUESTING PROVIDER: Dr. 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 It's ER positive (99%, strong), MI positive (99%, strong), and Her2 2+ and [...] carcinoma in-situ). It's ER positive (99%, strong), MI positive (99%, strong), and Her2 2+ and [...] sedation, infus (more content not included)... Normal [facility] CNOVSPon 11-08-2023 CNOVSP Visit (SP) Office (RUBI) -------- ALBERTO RODRIGUEZ ([id number]) 1935 F Date Time Provider Department 11/08/23 [...] External Control Present and Stained as Expected MI status Positive (greater than or equal to 1%) MI % staining 99 Progesterone Receptor (Staining Intensity) [...] with clip placement 11/19. She lives in [place]. . Has close friend. Fully capable of [...] HERNIA INCARCERA (more content not included)... Normal [facility] CNPMichelle 11-08-2023 CNPN Telephone (BRCRBD) -------- ALBERTO RODRIGUEZ ([id number]) 1935 F Date Time Provider Department 11/08/23 [...] IF UNABLE, PLEASE REFER TO CHUNG AT [facility]. DX: EDEMA - multivitamin tablet Take 1 [...] Status:Closed by LOY KWON on 11/08/23 Normal [facility] Ferritin SerPl-mCncon 2023 Ferritin [Mass/Vol] 33.8 ng/mL Normal 14.7-205.1 [facility] Comment on above: Order Comment: Raleigh carbajal Type: BLOOD SPECIMEN Ordering Facility: [facility] Address: [address] [place] [address] Performed By: #### 5 0190-8, 2276-4 #### [facility] CLIA [id number] [address] [place], [place] [address] [address] [place] Iron and Iron binding capaci ty panelon 11-08-2023 Iron [Mass/Vol] 52 ug/dL Normal 41-186 [facility] Comment on above: Order Comment: Talitai men Type: BLOOD SPECIMEN Ordering Facility: [facility] Address: [address] [place] [address] Performed By: #### 5 0190-8, 2276-4 #### [facility] CLIA [id number] [address] [place] [address] [place] Iron binding capacity [Mass/Vol] 322 ug/dL Normal 232-386 [facility] Comment on above: Order Comment: Speci men Type: BLOOD SPECIMEN Ordering Facility: [facility] Address: [address] [place] [address] Performed By: #### 5 0190-8, 2276-4 #### [facility] CLIA [id number] [address] [place] [address] [place] Iron/TIBC [Molar ratio] 16.1 % Normal 15.0-57.0 [facility] Comment on above: Order Comment: Speci men Type: BLOOD SPECIMEN Ordering Facility: [facility] Address: [address] [place] [address] Performed By: #### 5 0190-8, 2276-4 #### [facility] CLIA [id number] [address] [place] [address] OF [facility] Dillon 11-07-2023 [place] Telephone (RADMN) -------- ALBERTO RODRIGUEZ ([id number]) 1935 F Date Time Provider Department 11/07/23 [...] IF UNABLE, PLEASE REFER TO CHUNG AT [facility]. DX: EDEMA - multivitamin tablet Take 1 [...] Encounter Status:Closed by GEORGINA CROOKS on 11/07/23 [facility] DIAGNOSTIC LTon 11-06-19 [facility] DIAGNOSTIC LT * * *Final Report* * * * * * SEE BOTTOM OF REPORT FOR ADDENDED TEXT * * * DATE OF EXAM: Nov 06 2023 9:31AM BCW 0621 - [facility] DIAGNOSTIC LT / PROCEDURE REASON: Abnormal ultrasound of breast * * * * Physician Interpretation * * * * FINAL REPORT #[id number] - [facility] DIAGNOSTIC LT #[id number] - [facility] US BIOPSY BREAST LT #[id number] - MRI CLIP PLACEMENT BREAST LT ULTRASOUND [...] Medina performed the entire procedure without an clinical data assistant. Audible Time Out Time: 0844 hrs Procedure Start Time: 0844 hrs Procedure Stop Time: 0857 hrs. Correlation is made to exams dated: 10/27/2023 ultrasound - [facility], 10/21/2023 breast MRI, 10/21/2023 breast MRI - [facility], 10/19/2023 ultrasound - [facility], 08/22/2023 mammogram - [facility], and 10/04/2023 stereotactic biopsy - [facility]. An ultrasound guided biopsy using real-time ultrasound [...] stromal fibrosis. Mo Medina M.D. rs/:11/07/2023 15:06:27 Golf Course Designer(s): RT Aissatou(R)(M), [facility]; Antonio Llamas, [facility] Multiple national specialty organizations have released breast cancer screening guidelines for women at average risk for developing breast cancer - guidelines that are based on both evidence and opinion, yet differ on when to start and how often to screen for breast cancer. With representation from Breast Imaging, Internal Medicine, Women's Health, Family Medicine, and Medical/Surgical Oncology, the [facility] has carefully reviewed the data and reached the following consensus: 1) All women should engage in shared decision-making with their providers (more content not included)... Normal [facility] US BIOPSY BREAST LTon [facility] US BIOPSY BREAST LT * * *Final Report* * * * * * SEE BOTTOM OF REPORT FOR ADDENDED TEXT * * * DATE OF EXAM: Nov 06 2023 9:31AM BCW 0597 - [facility] US BIOPSY BREAST LT / PROCEDURE REASON: Abnormal ultrasound of breast * * * * Physician Interpretation * * * * FINAL REPORT #[id number] - [facility] DIAGNOSTIC LT #[id number] - [facility] US BIOPSY BREAST LT #[id number] - MRI CLIP PLACEMENT BREAST LT ULTRASOUND [...] Medina performed the entire procedure without an clinical data assistant. Audible Time Out Time: 0844 hrs Procedure Start Time: 0844 hrs Procedure Stop Time: 0857 hrs. Correlation is made to exams dated: 10/27/2023 ultrasound - [facility], 10/21/2023 breast MRI, 10/21/2023 breast MRI - [facility], 10/19/2023 ultrasound - [facility], 08/22/2023 mammogram - [facility], and 10/04/2023 stereotactic biopsy - [facility]. An ultrasound guided biopsy using real-time ultrasound [...] stromal fibrosis. Mo Medina M.D. rs/:11/07/2023 15:06:27 Golf Course Designer(s): RT Aissatou(R)(M), [facility]; Antonio Llamas, [facility] Multiple national specialty organizations have released breast cancer screening guidelines for women at average risk for developing breast cancer - guidelines that are based on both evidence and opinion, yet differ on when to start and how often to screen for breast cancer. With representation from Breast Imaging, Internal Medicine, Women's Health, Family Medicine, and Medical/Surgical Oncology, the [facility] has carefully reviewed the data and reached the following consensus: 1) All women should engage in shared decision-making with their prov (more content not included)... Normal [facility] MG Breast - left Diagnostic for [...] when these become available. Mo lema/tera:11/06/2023 13:58:54 Golf Course Designer(s): RT Aissatou(R)(M), [facility]; Antonio Llamas, [facility] Multiple national specialty organizations have released breast cancer screening guidelines for women at average risk for developing breast cancer - guidelines that are based on both evidence and opinion, yet differ on when to start and how often to screen for breast cancer. With representation from Breast Imaging, Internal Medicine, Women's Health, Family Medicine, and Medical/Surgical Oncology, the [facility] has carefully reviewed the data and reached [...] their providers when to stop screening mammograms. Fast Food Cashier: Tera Transcribe Date/Time: Nov 06 2023 8:54A Dictated by : MO MEDINA MD This examination was interpreted and the report reviewed and electronically signed by: MO MEDINA MD on Nov 06 2023 1:58PM [facility] DIVISION OF RADIOLOGY * * *Final Report* * * DATE OF EXAM: Nov 06 2023 9:31AM BCW 0621 - [facility] DIAGNOSTIC LT / PROCEDURE REASON: Abnormal ultrasound of breast * * * * Physician Interpretation * * * * #[id number] - [facility] DIAGNOSTIC LT #[id number] - [facility] US BIOPSY BREAST LT #[id number] - MRI CLIP PLACEMENT BREAST LT ULTRASOUND [...] Medina performed the entire procedure without an clinical data assistant. Audible Time Out Time: 0844 hrs Procedure Start Time: 0844 hrs Procedure Stop Time: 0857 hrs. Correlation is made to exams dated: 10/27/2023 ultrasound - [facility], 10/21/2023 breast MRI, 10/21/2023 breast MRI - [facility], 10/19/2023 ultrasound - [facility], 08/22/2023 mammogram - [facility], and 10/04/2023 stereotactic biopsy - [facility]. An ultrasound guided biopsy using real-time ultrasound [...] comparison MRI study. DIVISION OF RADIOLOGY Provider, [facility] - 11/06/2023 * * *Final Report* * * DATE OF EXAM: Nov 06 2023 9:31AM [facility] 0621 - [facility] DIAGNOSTIC LT / PROCEDURE REASON: Abnormal ultrasound of breast * * * * Physician Interpretation * * * * #[id number] - [facility] DIAGNOSTIC LT #[id number] - [facility] US BIOPSY BREAST LT #[id number] - MRI CLIP PLACEMENT BREAST LT ULTRASOUND [...] Medina performed the entire procedure without an clinical data assistant. Audible Time Out Time: 0844 hrs Procedure Start Time: 0844 hrs Procedure Stop Time: 0857 hrs. Correlation is made to exams dated: 10/27/2023 ultrasound - [facility], 10/21/2023 breast MRI, 10/21/2023 breast MRI - [facility], 10/19/2023 ultrasound - [facility], 08/22/2023 mammogram - [facility], and 10/04/2023 stereotactic biopsy - [facility]. An ultrasound guided biopsy using real-time ultrasound [...] when these become available. Mo lema/tera:11/06/2023 13:58:54 Golf Course Designer(s): RT Aissatou(R)(M), [facility]; Antonio Llamas, [facility] Multiple national specialty organizations have released breast cancer screening guidelines for women at average risk for developing breast cancer - guidelines that are based on both evidence and opinion, yet differ on when to start and how often to screen for breast cancer. With representation from Breast Imaging, Internal Medicine, Women's Health, Family Medicine, and Medical/Surgical Oncology, the [facility] has carefully reviewed the data and reached [...] their providers when to stop screening mammograms. Fast Food Cashier: Tera Transcribe Date/Time: Nov 06 2023 8:54A Dictated b (more content not included)... [facility] Radiology Study observation (narrative) [facility] Guidance for placement of clip in [...] when these become available. Mo lema/tera:11/06/2023 13:58:54 Golf Course Designer(s): RT Aissatou(R)(M), [facility]; Antonio Llamas, [facility] Multiple national specialty organizations have released breast cancer screening guidelines for women at average risk for developing breast cancer - guidelines that are based on both evidence and opinion, yet differ on when to start and how often to screen for breast cancer. With representation from Breast Imaging, Internal Medicine, Women's Health, Family Medicine, and Medical/Surgical Oncology, the [facility] has carefully reviewed the data and reached [...] MEDINA MD on Nov 06 2023 1:58PM [facility] RADIOLOGY * * *Final Report* * * DATE OF EXAM: Nov 06 2023 12:03PM [facility] 3013 - MRI CLIP PLACEMENT BREAST LT / PROCEDURE REASON: Abnormal ultrasound of breast * * * * Physician Interpretation * * * * RESULT: #[id number] - [facility] DIAGNOSTIC LT #[id number] - [facility] US BIOPSY BREAST LT #[id number] - MRI CLIP PLACEMENT BREAST LT ULTRASOUND [...] Medina performed the entire procedure without an clinical data assistant. Audible Time Out Time: 0844 hrs Procedure Start Time: 0844 hrs Procedure Stop Time: 0857 hrs. Correlation is made to exams dated: 10/27/2023 ultrasound - [facility], 10/21/2023 breast MRI, 10/21/2023 breast MRI - [facility], 10/19/2023 ultrasound - [facility], 08/22/2023 mammogram - [facility], and 10/04/2023 stereotactic biopsy - [facility]. An ultrasound guided biopsy using real-time ultrasound [...] breast described on the comparison MRI study. [facility] RADIOLOGY Provider, Gilda Santiago - 11/06/2023 * * *Final Report* * * DATE OF EXAM: Nov 06 2023 12:03PM [facility] 3013 - MRI CLIP PLACEMENT BREAST LT / PROCEDURE REASON: Abnormal ultrasound of breast * * * * Physician Interpretation * * * * RESULT: #[id number] - [facility]AGNOST[facility] LT #[id number] - [facility] US BIOPSY BREAST LT #[id number] - MRI CLIP PLACEMENT BREAST LT ULTRASOUND [...] Medina performed the entire procedure without an clinical data assistant. Audible Time Out Time: 0844 hrs Procedure Start Time: 0844 hrs Procedure Stop Time: 0857 hrs. Correlation is made to exams dated: 10/27/2023 ultrasound - [facility], 10/21/2023 breast MRI, 10/21/2023 breast MRI - [facility], 10/19/2023 ultrasound - [facility], 08/22/2023 mammogram - [facility], and 10/04/2023 stereotactic biopsy - [facility]. An ultrasound guided biopsy using real-time ultrasound [...] when these become available. Mo lema/tera:11/06/2023 13:58:54 Golf Course Designer(s): RT Aissatou(Lianna)(M), [facility]; Antonio Llamas, [facility] Multiple national specialty organizations have released breast cancer screening guidelines for women at average risk for developing breast cancer - guidelines that are based on both evidence and opinion, yet differ on when to start and how often to screen for breast cancer. With representation from Breast Imaging, Internal Medicine, Women's Health, Family Medicine, and Medical/Surgical Oncology, the [facility] has carefully reviewed the data and reached [...] Transcribe Date/Time: A (more content not included)... [facility] Radiology Study observation (narrative) [facility] MRI CLIP PLACEMENT BREAST LT on 11-06-2023 MRI CLIP PLACEMENT BREAST LT * * *Final Report* * * * * * SEE BOTTOM OF REPORT FOR ADDENDED TEXT * * * DATE OF EXAM: Nov 06 2023 12:03PM [facility] 3013 - MRI CLIP PLACEMENT BREAST LT / PROCEDURE REASON: Abnormal ultrasound of breast * * * * Physician Interpretation * * * * RESULT: FINAL REPORT #[id number] - [facility]AGNOSTIC LT #[id number] - [facility] US BIOPSY BREAST LT #[id number] - MRI CLIP PLACEMENT BREAST LT ULTRASOUND [...] Medina performed the entire procedure without an clinical data assistant. Audible Time Out Time: 0844 hrs Procedure Start Time: 0844 hrs Procedure Stop Time: 0857 hrs. Correlation is made to exams dated: 10/27/2023 ultrasound - [facility], 10/21/2023 breast MRI, 10/21/2023 breast MRI - [facility], 10/19/2023 ultrasound - [facility], 08/22/2023 mammogram - [facility], and 10/04/2023 stereotactic biopsy - [facility]. An ultrasound guided biopsy using real-time ultrasound [...] stromal fibrosis. Mo Medina M.D. rs/:11/07/2023 15:06:27 Golf Course Designer(s): RT Aissatou(Lianna)(M), [facility]; [facility] Multiple national specialty organizations have released breast cancer screening guidelines for women at average risk for developing breast cancer - guidelines that are based on both evidence and opinion, yet differ on when to start and how often to screen for breast cancer. With representation from Breast Imaging, Internal Medicine, Women's Health, Family Medicine, and Medical/Surgical Oncology, the [facility] has carefully reviewed the data and reached the following consensus: 1) All women should engage in shared decision-making w (more content not included)... Normal [facility] No Panel InformationOrdered By: Cc Provider on 11-06-2023 [facility] SURGICAL PATHOLOGYon 024 CASE REPORT Normal [facility] Comment on above: Order Comment: [place] carbajal Type: BLOOD SPECIMEN Ordering Facility: [facility] Address: [address] [place] [address] Result Comment: Surg ical Pathology Report Case: [id number] Authorizing Provider: Mo Medina MD Collected: 11/06/2023 08:57 AM Ordering Location: Mammography Received: 11/06/2023 10:45 AM Pathologist: Rolando Walters MD Specimen: Breast, Left, Core Biopsy, left breast 11:00 3cmfn, 0.9cmx0.9cmx0.6cm mass, u/s biopsy, Q clip Performed By: #### 5 0190-8, 2276-4 #### [facility] CLIA [id number] [address] [place] [address] [place] DIAGNOSIS COMMENT Normal [facility] Comment on above: Order Comment: Raeligh carbajal Type: BLOOD SPECIMEN Ordering Facility: [facility] Address: [address] [place] [address] Result Comment: Kaylyn ct slides of this case were reviewed with Dr Darlyn Madden of the [facility] Breast Pathology Service, who concurs with the above diagnosis of focal atypical lobular hyperplasia (ALH). RS/rs 11/07/23 Performed By: #### 5 0190-8, 2276-4 #### [facility] CLIA [id number] OF [facility] FINAL DIAGNOSIS Normal [facility] Comment on above: Order Comment: Talitai solomon Type: BLOOD SPECIMEN Ordering Facility: [facility] Address: [address] [place] [address] Result Comment: Left breast, 11:00, 3cmfn, 0.9cm x 0.9cm x 0.6cm mass, ultrasound-guided core biopsy, with Q clip placement: - Focal atypical lobular hyperplasia (ALH), columnar cell change, and dense stromal fibrosis. RSH/rsh 11/07/23 Performed By: #### 5 0190-8, 2276-4 #### [facility] CLIA [id number] [address] [place] [address] OF [facility] FINAL PERFORMING LAB Normal [facility] Comment on above: Order Comment: Talitai solomon Type: BLOOD SPECIMEN Ordering Facility: [facility] Address: [address] [place] [address] Result Comment: Diag nostic interpretation performed at [facility], [address] [place] [address] CLIA# [id number] Felt Machine Mechanic: Tavo Roberts M.D. Performed By: #### 5 0190-8, 2276-4 #### [facility] CLIA [id number] [address] [place] [address] OF [facility] GROSS DESCRIPTION Normal [facility] Comment on above: Order Comment: Speci solomon Type: BLOOD SPECIMEN Ordering Facility: [facility] Address: [address] [place] [address] Result Comment: Katia cannon, Left, Core Biopsy [...] in one cassette. Gross examination performed at [facility], [address] [place] [address], [address] November 06, 2023 5:26 PM Performed By: #### 5 0190-8, 2276-4 #### [facility] CLIA [id number] [address] [place] [id number] CNPMichelle 11-02-2023 CNPN Telephone [facility] -------- ALBERTO RODRIGUEZ ([id number]) 1935 F Date Time Provider Department 11/02/23 KIMBERLY CHAVEZ RIANA During your visit today, we recorded the following information about you: Kimberly Chavez PA-C 11/02/2023 3:02 PM Signed Attempted to return patient's call Left [facility] requesting sooner apt for US core biopsy [...] IF UNABLE, PLEASE REFER TO CHUNG AT [facility]. DX: EDEMA - multivitamin tablet Take 1 [...] Status:Closed by KIMBERLY CHAVEZ on 11/02/[address] [facility] US BREAST LTD LTon 10-26 [facility] US BREAST LTD LT * * *Final Report* * * DATE OF EXAM: Oct 27 2023 3:01PM BCW 0593 - [facility] US BREAST LTD LT / PROCEDURE REASON: Breast disorder * * * * Physician Interpretation * * * * #[id number] - [facility] US BREAST LTD LT LIMITED ULTRASOUND OF LEFT BREAST: 10/27/2023 HISTORY: Left breast 2nd look from MRI. RESULT: Comparison is made to exam dated: 10/21/2023 breast MRI - [facility]. Color flow and real-time ultrasound of [...] patient will meet with the biopsy scheduling style advisor before leaving the department. Electronically informed consent for the recommended biopsy was explained and signed by the patient. Kisha Saba M.D., ch/tera:10/27/2023 15:18:10 Golf Course Designer(s): ELIDA Quijano)(M), [facility] Ultrasound BI-RADS: Category 4: Suspicious Multiple national specialty organizations have released breast cancer screening guidelines for women at average risk for developing breast cancer - guidelines that are based on both evidence and opinion, yet differ on when to start and how often to screen for breast cancer. With representation from Breast Imaging, Internal Medicine, Women's Health, Family Medicine, and Medical/Surgical Oncology, the [facility] has carefully reviewed the data and reached [...] their providers when to stop screening mammograms. Fast Food Cashier: Tera Transcribe Date/Time: Oct 27 2023 2:23P Dictated by : KISHA SABA MD This examination was interpreted and the report reviewed and electronically signed by: KISHA SABA MD on Oct 27 2023 3:18PM EST [id number] Normal [facility] US Breast - left limitedon 0 [...] patient will meet with the biopsy scheduling style advisor before leaving the department. Electronically informed consent for the recommended biopsy was explained and signed by the patient. Kisha Saba M.D., ch/tera:10/27/2023 15:18:10 Golf Course Designer(s): RT Macie(R)(M), [facility] Ultrasound BI-RADS: Category 4: Suspicious Multiple national specialty organizations have released breast cancer screening guidelines for women at average risk for developing breast cancer - guidelines that are based on both evidence and opinion, yet differ on when to start and how often to screen for breast cancer. With representation from Breast Imaging, Internal Medicine, Women's Health, Family Medicine, and Medical/Surgical Oncology, the [facility] has carefully reviewed the data and reached [...] their providers when to stop screening mammograms. Fast Food Cashier: Tera Transcribe Date/Time: Oct 27 2023 2:23P Dictated by : KISHA SABA MD This examination was interpreted and the report reviewed and electronically signed by: KISHA SABA MD on Oct 27 2023 3:18PM [facility] DIVISION OF RADIOLOGY * * *Final Report* * * DATE OF EXAM: Oct 27 2023 3:01PM [facility] 0593 [employer] BREAST LTD LT / PROCEDURE REASON: Breast disorder * * * * Physician Interpretation * * * * #[id number] - [facility] US BREAST LTD LT LIMITED ULTRASOUND OF LEFT BREAST: 10/27/2023 HISTORY: Left breast 2nd look from MRI. RESULT: Comparison is made to exam dated: 10/21/2023 breast [facility]. Color flow and real-time ultrasound of [...] breast MRI findings. DIVISION OF RADIOLOGY Provider, [facility] - 10/27/2023 * * *Final Report* * * DATE OF EXAM: Oct 27 2023 3:01PM [facility] 0593 [employer] BREAST LTD LT / PROCEDURE REASON: Breast disorder * * * * Physician Interpretation * * * * #[id number] - [facility] [employer] BREAST LTD LT LIMITED ULTRASOUND OF LEFT BREAST: 10/27/2023 HISTORY: Left breast 2nd look from MRI. RESULT: Comparison is made to exam dated: 10/21/2023 breast [facility]. Color flow and real-time ultrasound of [...] patient will meet with the biopsy scheduling style advisor before leaving the department. Electronically informed consent for the recommended biopsy was explained and signed by the patient. Kisha Saba M.D., ch/tera:10/27/2023 15:18:10 Golf Course Designer(s): RT Macie(R)(M), [facility] Ultrasound BI-RADS: Category 4: Suspicious Multiple national specialty organizations have released breast cancer screening guidelines for women at average risk for developing breast cancer - guidelines that are based on both evidence and opinion, yet differ on when to start and how often to screen for breast cancer. With representation from Breast Imaging, Internal Medicine, Women's Health, Family Medicine, and Medical/Surgical Oncology, the [facility] has carefully reviewed the data and reached [...] their providers when to stop screening mammograms. Fast Food Cashier: Tera Transcribe Date/Time: Oct 27 2023 2:23P Dictated by : KISHA SABA MD This examination was interpreted and the report reviewed and electronically signed by: KISHA SABA MD on Oct 27 2023 3:18PM EST [facility] Radiology Study observation (narrative) [facility] US Breast - left limitedOrde red By: Ccf Provider on 10-27-2023 [facility] [place] 10-24-2023 CNPN Telephone (BRCRMN) -------- ALBERTO RODRIGUEZ ([id number]) 1935 F Date Time Provider Department 10/24/23 [...] her results pt can be reached at [phone]. [facility] 10/25/2023 3:57 PM Signed Patient called again about a call back to discuss the results of her previous test and also to speak with you before her ultrasound scheduled for October 26. Patient can be reached at [phone]. Thanks Allergies As of Date: 10/24/2023 Noted Allergy Reaction VICODIN (HYDROCODONE-ACETAMINOPH E*04/27/2009 5 - Intolerance Date Reviewed: 10/21/2023 Reviewed by: Oriana Pires, RN - Fully Assessed Reason for Visit: Return Call Request [[id number]] Prescriptions as of 10/25/2023 - nystatin-triamcinolone (MYCOLOG) [...] IF UNABLE, PLEASE REFER TO CHUNG AT [facility]. DX: EDEMA - multivitamin tablet Take 1 [...] Encounter Status:Closed by FRANCIE SMITH on 10/25/23 [facility] [place] 10-23-2023 CNPN Telephone (BRCRMN) -------- ALBERTO RODIRGUEZ ([id number]) 1935 F Date Time Provider Department 10/23/23 LOY KWON [facility] During your visit today, we recorded [...] IF UNABLE, PLEASE REFER TO CHUNG AT [facility]. DX: EDEMA - multivitamin tablet Take 1 [...] Status:Closed by FANNING, LOY on 10/26/23 Normal [facility] MRI BREAST 3D POST PROCESSIN Terry 10-21-2023 MRI BREAST 3D POST PROCESSING * * *Final Report* * * DATE OF EXAM: Oct 21 2023 10:46AM HCM 0788 - MRI BREAST 3D POST PROCESSING / PROCEDURE REASON: multiple diagnoses * * * * Physician Interpretation * * * * RESULT: #[id number] - MRI BREAST WO/W IVCON EMELIA #[id number] - MRI BREAST 3D POST PROCESSING BREAST MRI OF BOTH BREASTS: 10/21/2023 HISTORY: Multiple Diagnoses Multiple Diagnoses. RESULT: Comparison is made to exams dated: 10/19/2023 ultrasound, 10/04/2023 stereotactic biopsy, 10/04/2023 stereotactic biopsy - [facility], 08/22/2023 mammogram, 07/27/2023 mammogram, and 07/01/2021 mammogram - [facility]. MRI images were obtained with a dedicated breast coil. TECHNIQUE: Axial STIR and axial T1 weighted imaging was carried out follow by axial T1- with fat saturation imaging both before and after IV administration of 12 ml of Dotarem. Subsequently, complex volumetric analysis requiring post processing performed using a semi-automated software [employer] Cly[employer], on an independent workstation by the physician, [...] cm area of nonmasslike enhancement on series 54314 image 94 and series 718 image 219, which is indeterminate. This area demonstrates persistent enhancement kinetics. Clumped areas of nonmasslike enhancement in the lower outer left breast are favored to represent areas of background parenchymal enhancement. In the 8-10:00 middle depth right breast, there is clumped nonmass-like enhancement measuring approximately 2.3 x 3.8 x 3.5 cm on example series 32916 images 63-75 and series 1018 images 90-112. The biopsy marking clip is located along the inferior aspect of this enhancement at site of known biopsy-proven malignancy. Additional clumped nonmasslike enhancement is seen in the immediate retroareolar right breast measuring 1.9 x 1.8 x 2.4 cm on series 74804 image 68-74 and series 1018 images 114-123; the biopsy marking clip is located just lateral to this enhancement, where biopsy demonstrated atypical lobular hyperplasia. This area remains suspicious.. When including both abnormal areas of enhancement, total abnormal enhancement would span approximately 6.4 cm as seen on series 63453 image 72. The area has predominantly demonstrate [...] parenchymal enhancement (more content not included)... Normal [facility] MRI BREAST WO/W IVCON BILon 10-21-2023 MRI BREAST WO/W IVCON EMELIA * * *Final Report* * * DATE OF EXAM: Oct 21 2023 10:46AM HCM 0773 - MRI BREAST WO/W IVCON EMELIA / PROCEDURE REASON: multiple diagnoses * * * * Physician Interpretation * * * * RESULT: #[id number] - MRI BREAST WO/W IVCON EMELIA #[id number] - MRI BREAST 3D POST PROCESSING BREAST MRI OF BOTH BREASTS: 10/21/2023 HISTORY: Multiple Diagnoses Multiple Diagnoses. RESULT: Comparison is made to exams dated: 10/19/2023 ultrasound, 10/04/2023 stereotactic biopsy, 10/04/2023 stereotactic biopsy - [facility], 08/22/2023 mammogram, 07/27/2023 mammogram, and 07/01/2021 mammogram - [facility]. MRI images were obtained with a dedicated breast coil. TECHNIQUE: Axial STIR and axial T1 weighted imaging was carried out follow by axial T1- with fat saturation imaging both before and after IV administration of 12 ml of Dotarem. Subsequently, complex volumetric analysis requiring post processing performed using a semi-automated software [employer], on an independent workstation by the physician, [...] cm area of nonmasslike enhancement on series 83878 image 94 and series 718 image 219, which is indeterminate. This area demonstrates persistent enhancement kinetics. Clumped areas of nonmasslike enhancement in the lower outer left breast are favored to represent areas of background parenchymal enhancement. In the 8-10:00 middle depth right breast, there is clumped nonmass-like enhancement measuring approximately 2.3 x 3.8 x 3.5 cm on example series 56821 images 63-75 and series 1018 images 90-112. The biopsy marking clip is located along the inferior aspect of this enhancement at site of known biopsy-proven malignancy. Additional clumped nonmasslike enhancement is seen in the immediate retroareolar right breast measuring 1.9 x 1.8 x 2.4 cm on series 44467 image 68-74 and series 1018 images 114-123; the biopsy marking clip is located just lateral to this enhancement, where biopsy demonstrated atypical lobular hyperplasia. This area remains suspicious.. When including both abnormal areas of enhancement, total abnormal enhancement would span approximately 6.4 cm as seen on series 34006 image 72. The area has predominantly demonstrate [...] enhancement glynn (more content not included)... Normal [facility] CNOVon 10-19-2023 CNOV Office Visit (BRCRBD ) -------- ALBERTO RODRIGUEZ ([id number]) 1935 F Date Time Provider Department 10/19/23 [...] background of lobular neoplasia (ALH/LCIS). ER 99 MI 99 Her2 FISH negative SA: TOP HAT [...] IF UNABLE, PLEASE REFER TO CHUNG AT [facility]. DX: EDEMA multivitamin tablet Take 1 tablet [...] or m (more content not included)... Normal [facility] US AXILLA ONLY RTon 09-25 [facility] US AXILLA ONLY RT * * *Final Report* * * DATE OF EXAM: Oct 19 2023 1:42PM BCW 0592 - [facility] US AXILLA ONLY RT / PROCEDURE REASON: multiple diagnoses * * * * Physician Interpretation * * * * #[id number] - [facility] US AXILLA ONLY RT ULTRASOUND OF RIGHT BREAST: 10/19/2023 HISTORY: Multiple Diagnoses; known right breast cancer. RESULT: Comparison is made to exams dated: 08/22/2023 mammogram, 07/27/2023 mammogram, and 07/01/2021 mammogram - [facility]. Real-time ultrasound of the right breast was [...] known right breast cancer. Ismael mercer/tera:10/19/2023 13:42:55 Golf Course Designer(s): RT Macie(R)(M), [facility] Ultrasound BI-RADS: 2 Benign finding Multiple national specialty organizations have released breast cancer screening guidelines for women at average risk for developing breast cancer - guidelines that are based on both evidence and opinion, yet differ on when to start and how often to screen for breast cancer. With representation from Breast Imaging, Internal Medicine, Women's Health, Family Medicine, and Medical/Surgical Oncology, the [facility] has carefully reviewed the data and reached [...] their providers when to stop screening mammograms. Fast Food Cashier: Tera Transcribe Date/Time: Oct 19 2023 1:39P Dictated by : ISMAEL LIU MD This examination was interpreted and the report reviewed and electronically signed by: ISMAEL LIU MD on Oct 19 2023 1:42PM EST [id number] Normal [facility] US Axilla - righton 10-19-19 IMPRESSION: BENIGN FINDING There is no sonographic evidence of malignancy. The multiple various size right axillary lymph nodes are benign. SUMMARY: Patient is following up with Dr. Kwon for her known right breast cancer. Ismael mercer/tera:10/19/2023 13:42:55 Golf Course Designer(s): RT Macie(R)(M), [facility] Ultrasound BI-RADS: 2 Benign finding Multiple national specialty organizations have released breast cancer screening guidelines for women at average risk for developing breast cancer - guidelines that are based on both evidence and opinion, yet differ on when to start and how often to screen for breast cancer. With representation from Breast Imaging, Internal Medicine, Women's Health, Family Medicine, and Medical/Surgical Oncology, the [facility] has carefully reviewed the data and reached [...] their providers when to stop screening mammograms. Fast Food Cashier: Tera Transcribe Date/Time: Oct 19 2023 1:39P Dictated by : ISMAEL LUI MD This examination was interpreted and the report reviewed and electronically signed by: ISMAEL LIU MD on Oct 19 2023 1:42PM [facility] DIVISION OF RADIOLOGY * * *Final Report* * * DATE OF EXAM: Oct 19 2023 1:42PM [facility] 0592 - [facility] US AXILLA ONLY RT / PROCEDURE REASON: multiple diagnoses * * * * Physician Interpretation * * * * #[id number] - [facility] US AXILLA ONLY RT ULTRASOUND OF RIGHT BREAST: 10/19/2023 HISTORY: Multiple Diagnoses; known right breast cancer. RESULT: Comparison is made to exams dated: 08/22/2023 mammogram, 07/27/2023 mammogram, and 07/01/2021 mammogram - [facility]. Real-time ultrasound of the right breast was performed. There are multiple benign various size right axillary lymph nodes. These nodes have a preserved fatty porter and normal cortices. DIVISION OF RADIOLOGY Provider, Gilda Santiago - 10/19/2023 * * *Final Report* * * DATE OF EXAM: Oct 19 2023 1:42PM [facility] 0592 - [facility] US AXILLA ONLY RT / PROCEDURE REASON: multiple diagnoses * * * * Physician Interpretation * * * * #[id number] - [facility] US AXILLA ONLY RT ULTRASOUND OF RIGHT BREAST: 10/19/2023 HISTORY: Multiple Diagnoses; known right breast cancer. RESULT: Comparison is made to exams dated: 08/22/2023 mammogram, 07/27/2023 mammogram, and 07/01/2021 mammogram - [facility]. Real-time ultrasound of the right breast was [...] known right breast cancer. Ismael mercer/tera:10/19/2023 13:42:55 Golf Course Designer(s): RT Macie(R)(M), [facility] Ultrasound BI-RADS: 2 Benign finding Multiple national specialty organizations have released breast cancer screening guidelines for women at average risk for developing breast cancer - guidelines that are based on both evidence and opinion, yet differ on when to start and how often to screen for breast cancer. With representation from Breast Imaging, Internal Medicine, Women's Health, Family Medicine, and Medical/Surgical Oncology, the [facility] has carefully reviewed the data and reached [...] their providers when to stop screening mammograms. Fast Food Cashier: Tera Transcribe Date/Time: Oct 19 2023 1:39P Dictated by : ISMAEL LIU MD This examination was interpreted and the report reviewed and electronically signed by: ISMAEL LIU MD on Oct 19 2023 1:42PM EST [facility] Radiology Study observation (narrative) [facility] US Axilla - rightOrdered By: Ccf Provider on 10-19-2023 [facility] CNPNon 10-12-2023 CNPN Telephone (Flats&Houses) -------- ALBERTO RODRIGUEZ ([id number]) 1935 F Date Time Provider Department 10/12/23 NURIS ALEGRIA YoltoBD During your visit today, we recorded the [...] External Control Present and Stained as Expected MI status Positive (greater than or equal to 1%) MI % staining 99 Progesterone Receptor (Staining Intensity) Strong Progesterone Receptor Internal Control Present and Stained as Expected Progesterone Receptor External Control Present and Stained as Expected HER2 IHC Status Equivocal for HER2 Overexpression HER2 IHC Score 2+ Tumor Type Primary Invasive Breast Carcinoma Breast Tumor Grade Not Graded Comment: Microinvasive carcinoma [facility] Referring Laboratory Case Number Block ID B1 [...] RN - Fully Assessed 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 Normal [facility] Telephone (RADMN) -------- ALBERTO RODRIGUEZ ([id number]) 1935 F Date Time Provider Department 10/12/23 [...] IF UNABLE, PLEASE REFER TO CHUNG AT [facility]. DX: EDEMA - multivitamin tablet Take 1 [...] Status:Closed by GEORGINA CROOKS on 10/12/23 [facility] BREAST MARKERSon 10-04-2023 AP BIOMARKER DISCLAIMER [facility] Comment on above: Order Comment: Speci men Type: BLOOD SPECIMEN Ordering Facility: [facility] Address: [address] [place] [address] Result Comment: Estrella maldonado Developed Test (LDT) Disclaimer: Performance characteristics of immunohistochemical, immunofluorescent and chromogenic in-situ hybridization tests have been determined by the performing laboratory within [facility]???s Dulce Inman [facility] Pathology and Laboratory Medicine Department ([facility], [facility], [facility], [facility], [facility], [facility], or [facility]) in a manner consistent with CLIA requirements. One or more of these tests have not been cleared or approved by the FDA. RT-PLM is regulated under CLIA as qualified to perform high-complexity testing. These tests are used for clinical purposes. They should not be regarded as investigational or for research. Positive and negative controls stain appropriately. Performed By: #### 5 0190-8, 2276-4 #### [facility] CLIA [id number] [address] [place] [address] [place] AP BLOCK ID B1 [facility] Comment on above: Order Comment: Speci men Type: BLOOD SPECIMEN Ordering Facility: [facility] Address: [address] [place] [address] Performed By: #### 5 0190-8, 2276-4 #### [facility] CLIA [id number] [address] [place] [address] [place] ASCP/CAP GUIDELINES FOR FIXATION Yes [facility] Comment on above: Order Comment: Speci men Type: BLOOD SPECIMEN Ordering Facility: [facility] Address: [address] [place] [address] Performed By: #### 5 0190-8, 6-4 #### [facility] CLIA [id number] [address] [place] [address] [place] BIOMARKER INTERPRETATION COMMENT AND REFERENCE RANGE [facility] Comment on above: Order Comment: Raleigh carbajal Type: BLOOD SPECIMEN Ordering Facility: [facility] Address: [address] [place] [address] Result Comment: Refe rence Range for Hormone Receptors: Staining for MI of greater than or equal to 1% of the tumor cells is considered positive. Staining for ER of 1-10% of the tumor cells is considered low positive. Staining for ER of greater than 10% of the tumor cells is considered positive. Staining for ER or MI of less than 1% is considered negative. [...] Performed By: #### 5 0190-8, 6-4 #### [facility] CLIA [id number] [address] [place] [address] [place] [address] [place] BIOMARKER METHOD Normal Kera pickard [facility] Comment on above: Order Comment: Speci men Type: BLOOD SPECIMEN Ordering Facility: [facility] Address: [address] [place] [address] Result Comment: Estr ogen Receptor: Food and Drug Administration (FDA) cleared: [employer], [place], [place] Primary Antibody: SP1 Progesterone Receptor: FDA cleared: [employer], [place], [place] Primary Antibody: IE2 HER2 (ERBB2) by IHC: FDA cleared: [employer], [place], [place] Primary Antibody:4B5 The hormone receptor tests were performed and reported in accordance with the guidelines approved by the [place] Society of Clinical Oncologists and the College of [place] Pathologists. Yeny TIM, et al. Estrogen and Progesterone Receptor Testing in Breast Cancer: [place] Society of Clinical Oncologists and the College of [place] Pathologists Guideline Update. Arch Pathol Lab Med. 2019;144(5):545-563. PMID: [id number]. The hormone receptor assays have been internally validated on decalcified tissues (for [facility] only). Estrogen and progesterone receptor results are valid if tissue was processed according to ASCO/CAP guidelines. Antibody and Detection System: Cameron[employer] Pathway anti-HER2 rabbit monoclonal antibody (clone [id number]), Cameron Confirm anti-estrogen receptor rabbit monoclonal antibody (clone SP1) and Cameron anti-progesterone receptor rabbit monoclonal antibody (clone IE2) detected with the [employer] UltraView Univeral DAB Detection Kit (indirect biotin-free detection), [employer], [place], [place]. Control Slides: Cell line controls with high, equivocal, low, and negative HER2 protein expression, along with known positive control tissue and the patient's tissue, are evaluated for HER2 expression. The HER2 immunohistochemistry assay was developed, validated, scored, and reported in accordance with the guidelines approved by the [place] Society of Clinical Oncologists and the College of Citizen Of [place] [facility]. Faith ABRAHAM et al. Arch Pathol Lab Med. 2018;1379(9) The HER2 assay has not been validated on decalcified tissues. Given the possibility of false negative results on decalcified specimens, results should be interpreted with caution. Performed By: #### 5 0190-8, 2276-4 #### [facility] CLIA [id number] [address] [id number] [place] BREAST TUMOR GRADE Not Graded Normal [facility] Comment on above: Order Comment: Speci men Type: BLOOD SPECIMEN Ordering Facility: [facility] Address: [address] [place], [place] [address] Result Comment: Micr oinvasive carcinoma Performed By: #### 5 0190-8, 2275-4 #### [facility] CLIA [id number] [address] [place] [address] [place] [facility] CASE NUMBER INVASIVE [id number] Normal [facility] Comment on above: Order Comment: Speci men Type: BLOOD SPECIMEN Ordering Facility: [facility] Address: [address] [place] [address] Performed By: #### 5 0190-8, 2275- #### [facility] CLIA [id number] [address] [place] [address] [place] COLD ISCHEMIA TIME <1 Hour Normal [facility] Comment on above: Order Comment: Speci men Type: BLOOD SPECIMEN Ordering Facility: [facility] Address: [address] [place], [place] [id number] Performed By: #### 5 0190-8, 2275- #### [facility] CLIA [id number] [address] [place], [place] [id number] [place] ESTROGEN RECEPTOR (% TUMOR STAINING) 99 Normal [facility] Comment on above: Order Comment: Speci men Type: BLOOD SPECIMEN Ordering Facility: [facility] Address: [address] [place], [place] [id number] Performed By: #### 5 0190-8, 2275-4 #### [facility] CLIA [id number] [address] [place], [place] [id number] [place] ESTROGEN RECEPTOR (STAINING INTENSITY) Strong Normal [facility] Comment on above: Order Comment: Speci men Type: BLOOD SPECIMEN Ordering Facility: [facility] Address: [address] [place], [place] [id number] Performed By: #### 5 0190-8, 2275-4 #### [facility] CLIA [id number] [address] [place] [address] OF MILES ESTROGEN RECEPTOR EXTERNAL CONTROL Present and Stained as Expected Normal [facility] Comment on above: Order Comment: Speci men Type: BLOOD SPECIMEN Ordering Facility: [facility] Address: [address] [place] [address] Performed By: #### 5 0190-8, 2275-4 #### [facility] CLIA [id number] [address] [place] [address] OF MILES ESTROGEN RECEPTOR INTERNAL CONTROL Present and Stained as Expected Normal [facility] Comment on above: Order Comment: Speci men Type: BLOOD SPECIMEN Ordering Facility: [facility] Address: [address] [place] [address] Performed By: #### 5 0190-8, 2275-4 #### [facility] CLIA [id number] [address] [place] [address] [place] ESTROGEN RECEPTOR STATUS (INVASIVE) Positive Normal [facility] Comment on above: Order Comment: Speci men Type: BLOOD SPECIMEN Ordering Facility: [facility] Address: [address] [place] [address] Performed By: #### 5 0190-8, 2275-4 #### [facility] CLIA [id number] [address] [place] [address] [place] FINAL PERFORMING LAB Normal [facility] Comment on above: Order Comment: Speci men Type: BLOOD SPECIMEN Ordering Facility: [facility] Address: [address] [place] [address] Result Comment: Diag nostic interpretation performed at [facility], [address] [place] [address] CLIA: [id number] Felt Machine Mechanic: Tavo Roberts MD Electronically signed out by: Rolando Walters MD Performed By: #### 5 0190-8, 2275- #### [facility] CLIA [id number] [address] [place] [address] [place] FIXATIVE Formalin, 10% Neutra l Buffered Normal [facility] Comment on above: Order Comment: Speci men Type: BLOOD SPECIMEN Ordering Facility: [facility] Address: [address] [place], [place] [phone] Performed By: #### 5 0190-8, 2275- #### [facility] CLIA [id number] [address] [place] [address] [place] HER2 SCORE 2+ Normal [facility] Comment on above: Order Comment: Speci men Type: BLOOD SPECIMEN Ordering Facility: [facility] Address: [address] [place] [address] Performed By: #### 5 0190-8, 2275- #### [facility] CLIA [id number] [address] [place] [address] [place] HER2 STATUS (INVASIVE) Equivocal for HER 2 Overexpression Normal [facility] Comment on above: Order Comment: Speci men Type: BLOOD SPECIMEN Ordering Facility: [facility] Address: [address] [place] [address] Performed By: #### 5 0190-8, 2275-06 #### [facility] CLIA [id number] [address] [place] [address] [place] PROGESTERONE RECEPTOR (% TUMOR STAINING) 99 Normal [facility] Comment on above: Order Comment: Speci men Type: BLOOD SPECIMEN Ordering Facility: [facility] Address: [address] [place], [place] [phone] Performed By: #### 5 0190-8, 2275- #### [facility] CLIA [id number] [address] [place] [address] [place] PROGESTERONE RECEPTOR (STAINING INTENSITY) Strong Normal [facility] Comment on above: Order Comment: Speci men Type: BLOOD SPECIMEN Ordering Facility: [facility] Address: [address] [id number] Performed By: #### 5 0190-8, 2275- #### [facility] CLIA [id number] [address] [place], [place] [address] [place] PROGESTERONE RECEPTOR EXTERNAL CONTROL Present and Stained as Expected Normal [facility] Comment on above: Order Comment: Speci men Type: BLOOD SPECIMEN Ordering Facility: [facility] Address: [address] [place] [address] Performed By: #### 5 0190-8, 2275-06 #### [facility] CLIA [id number] [address] [place] [address] [place] PROGESTERONE RECEPTOR INTERNAL CONTROL Present and Stained as Expected Normal [facility] Comment on above: Order Comment: Speci men Type: BLOOD SPECIMEN Ordering Facility: [facility] Address: [address] [place] [address] Performed By: #### 5 0190-8, 2275-06 #### [facility] CLIA [id number] [address] [place] [address] [place] PROGESTERONE RECEPTOR STATUS (INVASIVE) Positive Normal [facility] Comment on above: Order Comment: Speci men Type: BLOOD SPECIMEN Ordering Facility: [facility] Address: [address] [place], [place] [address] Performed By: #### 5 0190-8, 2275-06 #### [facility] CLIA [id number] [address] [place], [place] [phone] [place] REFERRING LABORATORY CASE NUMBER Normal [facility] Comment on above: Order Comment: Speci men Type: BLOOD SPECIMEN Ordering Facility: [facility] Address: [address] [place], [place] [phone] Performed By: #### 5 0190-8, 2275-06 #### [facility] CLIA [id number] [address] [place] [address] [place] TOTAL FIXATION TIME >6 and <72 Hours Normal [facility] Comment on above: Order Comment: Speci men Type: BLOOD SPECIMEN Ordering Facility: [facility] Address: [address] [place] [address] Performed By: #### 5 0190-8, 2276-4 #### [facility] CLIA [id number] [address] [place] [address] [place] TUMOR 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 Normal [facility] Comment on above: Order Comment: Speci men Type: BLOOD SPECIMEN Ordering Facility: [facility] Address: [address] [place] [address] Performed By: #### 5 0190-8, 6-4 #### [facility] CLIA [id number] [address] [place] [address] [place] WAS SPECIMEN DECALCIFIED No Normal [facility] Comment on above: Order Comment: Speci men Type: BLOOD SPECIMEN Ordering Facility: [facility] Address: [address] [place] [address] Performed By: #### 5 0190-8, 6-4 #### [facility] CLIA [id number] [address] [place] [address] [place] FISH FOR HER-2on 10-04-2023 FISH FOR HER-2 FISH for HER2 Normal [facility] Comment on above: Order Comment: Speci men Type: BLOOD SPECIMEN Ordering Facility: [facility] Address: [address] [place] [address] Result Comment: Laboratory Accession Number: [id number] Case: [id number] Block/Part ID: B1 Sample Type: FFPET Sample [...] the centromeric region of chromosome 17 (PathVysion; [employer], [employer] [place], [place]). The Molecular Pathology and Cytogenomics Laboratory of the [facility] has validated modifications of the PathVysion kit used for the testing, including the use of Target Retrieval Solution and Proteinase K (Dako (Agilent); [place]) for cell conditioning, and modified probe/target denaturation and hybridization conditions for the assay. Internal and external (amplified and non-amplified) controls are evaluated. The in situ hybridization analysis was performed and correlated with preselected areas of invasive carcinoma deemed adequate for analysis by a pathologist. The HER2 (ERBB2) assay was developed, validated, and reported in accordance with guidelines published by the [place] Society of Clinical Oncology (ASCO) and the [employer] [place] [employer] (CAP) (Faith ABRAHAM, et al. J Clin Oncol. 2018. PMID: [id number]); and, Recommendations for Human Epidermal Growth Factor Receptor 2 Testing in Breast Cancer: [place] Society of Clinical Oncology/[employer] [place] [employer] Clinical Practice Guideline Focused Update (2018). [...] and its performance characteristics determined by the [facility]'s [facility] [place] ([facility]). It has not been cleared or approved by the FDA. -[facility] is regulated under CLIA as qualified to perform high- complexity testing. This test is used for clinical purposes. It should not be regarded as investigational or for research. Interpretation performed at [facility], [address] [place] [address]. CLIA Number: [id number] As reviewed by Dean Doe Performed By: #### 5 0190-8, 2276-4 #### [facility] CLIA [id number] [address] [place], [place] [address] [place] [address] [place] VALERI STEREO BX [...] Interpretation * * * * FINAL REPORT #[id number] - VALERI STEREO BX ADDL LES RT [...] Narvaez performed the entire procedure without an clinical data assistant. Time out: 1410 Procedure start: 1410 Procedure end: 1418 . Correlation is made to exam dated: 08/22/2023 mammogram - [facility]. A stereotactic guided biopsy was performed for [...] twelve specimens were obtained using a 12g Experts 911iva vacuum assisted biopsy needle. The patient received [...] her appointment. jayla Matthews M.D., D.O./tera:10/10/2023 17:36:49 Golf Course Designer(s): Radha Baldwin RT(R)(M), [facility] Multiple national specialty organizations have released breast cancer screening guidelines for women at average risk for developing breast cancer - guidelines that are based on both evidence and opinion, yet differ on when to start and how often to screen for breast cancer. With representation from Breast Imaging, Internal Medicine, Women's Health, Family Medicine, and Medical/Surgical Oncology, the [facility] has carefully reviewed the data and reached the following consensus: 1) All women should engage in shared decision-making with their providers to decide when to start and how often to screen; 2) All women should have the opportunity to start (more content not included)... Normal [facility] STEREO BX ADDL LES RT-NR on 10-04-2023 Addendum by Provider , [facility] [place] on 10/04/2023 3:25 PM EDT * * *Final Report* * * * * * SEE BOTTOM OF REPORT FOR ADDENDED TEXT * * * DATE OF EXAM: Oct 04 2023 3:02PM [facility] 0645 - [facility] STEREO BX ADDL LES RT / PROCEDURE REASON: Abnormal mammogram * * * * Physician Interpretation * * * * #[id number] - [facility] STEREO BX ADDL LES RT DIGITAL TOMOGRAPHIC [...] Narvaez performed the entire procedure without an clinical data assistant. Time out: 1409 Procedure start: 1409 Procedure end: 1417 . Correlation is made to exam dated: 08/22/2023 mammogram - [facility]. A stereotactic guided biopsy was performed for [...] twelve specimens were obtained using a 12g [employer] 911iva vacuum assisted biopsy needle. The patient received [...] staff physician. jayla Matthews M.D., D.O./tera:10/04/2023 15:25:04 Golf Course Designer(s): RT Macie(Lianna)(M), [facility] Multiple national specialty organizations have released breast cancer screening guidelines for women at average risk for developing breast cancer - guidelines that are based on both evidence and opinion, yet differ on when to start and how often to screen for breast cancer. With representation from Breast Imaging, Internal Medicine, Women's Health, Family Medicine, and Medical/Surgical Oncology, the [facility] has carefully reviewed the data and reached [...] their providers when to stop screening mammograms. Fast Food Cashier: Tera Transcribe Date/Time: Oct 04 2023 1:22P Dictated by : PATSY BROWN DO This examination was interpreted and the report reviewed and electronically signed by: LEVI NARVAEZ MD on Oct 04 2023 3:24PM EST This document has been addended by: LEVI NARVAEZ MD on Oct 04 2023 3:25PM EST [facility] VALERI STEREO BX BREAST RTon VALERI STEREO BX BREAST RT * * *Final Report* * * * * * SEE BOTTOM OF REPORT FOR ADDENDED TEXT * * * DATE OF EXAM: Oct 04 2023 3:02PM [facility] 0631 - VALERI STEREO BX BREAST RT / PROCEDURE REASON: Abnormal mammogram * * * * Physician Interpretation * * * * FINAL REPORT #[id number] - VALERI STEREO BX BREAST RT DIGITAL [...] and allergies were also reviewed. The radiologist, clinical data assistant radiologist and technologist were present throughout the entire procedure. Time out: 1345 Procedure start: 1347 Procedure end: 1350 Dr. Narvaez was present during all critical and giang portions of the procedure and scrubbed in and immediately available during the entire procedure. The clinical data assistant radiologist was Dr. Brown. The clinical data assistant radiologist performed the procedure. Correlation is made to exams dated: 08/22/2023 mammogram, 07/27/2023 mammogram, 07/01/2021 mammogram, and 06/03/2020 mammogram - [facility]. A stereotactic guided biopsy was performed for [...] six specimens were obtained using a 12g [employer] Eviva vacuum assisted biopsy needle. The patient [...] her appointment. jayla Matthews M.D., D.O./tera:10/10/2023 17:33:16 Golf Course Designer(s): RT Macie(R)(Eddie), [facility] Multiple national specialty organizations have released breast cancer screening guidelines for women at average risk for developing breast cancer - guidelines that are based on both evidence and opinion, yet differ on when to start and how often to screen for breast cancer. With representation from Breast Imaging, Internal Medicine, Women's Health, [facility] (more content not included)... Normal [facility] stereo Guidance for biops y of Breast - righton 10-04-2023 Addendum by Provider , [facility] [place] on 10/04/2023 3:25 PM EDT * * *Final Report* * * * * * SEE BOTTOM OF REPORT FOR ADDENDED TEXT * * * DATE OF EXAM: Oct 04 2023 3:02PM BC 0631 - VALERI STEREO BX BREAST RT / PROCEDURE REASON: Abnormal mammogram * * * * Physician Interpretation * * * * #[id number] - VALERI STEREO BX BREAST RT DIGITAL [...] and allergies were also reviewed. The radiologist, clinical data assistant radiologist and technologist were present throughout the entire procedure. Time out: 1345 Procedure start: 1347 Procedure end: 1350 Dr. Narvaez was present during all critical and giang portions of the procedure and scrubbed in and immediately available during the entire procedure. The clinical data assistant radiologist was Dr. Brown. The clinical data assistant radiologist performed the procedure. Correlation is made to exam dated: 08/22/2023 mammogram - [facility]. A stereotactic guided biopsy was performed for [...] physician. Serine jayla Mehta M.D., D.O./tera:10/04/2023 15:24:25 Golf Course Designer(s): RT Macie(R)(M), [facility] Multiple national specialty organizations have released breast cancer screening guidelines for women at average risk for developing breast cancer - guidelines that are based on both evidence and opinion, yet differ on when to start and how often to screen for breast cancer. With representation from Breast Imaging, Internal Medicine, Women's Health, Family Medicine, and Medical/Surgical Oncology, the [facility] has carefully reviewed the data and reached [...] their providers when to stop screening mammograms. Fast Food Cashier: Tera Transcribe Date/Time: Oct 04 2023 1:21P Dictated by : PATSY BROWN, DO This examination was interpreted and the report reviewed and electronically signed by: LEVI NARVAEZ MD on Oct 04 2023 3:20PM EST This document has been addended by: LEVI NARVAEZ MD on Oct 04 2023 3:24PM EST [facility] MG stereo Guidance for biops y of Breast - rightOrdered By: [facility] Provider on 10-04-2023 [facility] MOLECULAR GENETIC DATAon FISH PROBE (LIMS) HER2 Normal [facility] Comment on above: Order Comment: [place] carbajal Type: BLOOD SPECIMEN Order[facility] Facility: [facility] Address: [address] [place] [address] Performed By: #### 5 0190-8, 2276-4 #### [facility] CLIA [id number] [address] [place] [address] [place] FISH RESULT (LIMS) Not Amplified Normal [facility] Comment on above: Order Comment: [place] carbajal Type: BLOOD SPECIMEN Ordering Facility: [facility] Address: [address] [place] [address] Performed By: #### 5 0190-8, 2276-4 #### [facility] CLIA [id number] [address] [place] [address] [place] No Panel Informationon 10-03 Radiology Study observation (narrative) [facility] SURGICAL PATHOLOGYon 024 CASE REPORT Normal [facility] Comment on above: Order Comment: [place] carbajal Type: BLOOD SPECIMEN Order[facility] Facility: [facility] Address: [address] [place] [address] Result Comment: Surg ical Pathology Report Case: [id number] Authorizing Provider: Levi Narvaez MD Collected: 10/04/2023 [...] Performed By: #### 5 0190-8, 2276-4 #### [facility] CLIA [id number] [address] [place] [address] DIAGNOSIS COMMENT Normal [facility] Comment on above: Order Comment: Speci men Type: BLOOD SPECIMEN Ordering Facility: [facility] Address: [address] [place] [address] Result Comment: I. 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 [facility] 10/09/23 Laboratory Developed Test (LDT) Disclaimer: Performance characteristics of immunohistochemical, immunofluorescent and chromogenic in-situ hybridization tests have been determined by the performing laboratory within [facility]???s [facility] Pathology and Laboratory Medicine Department ([facility], [facility], [facility], [facility], [facility], [facility], or [facility]) in a manner consistent with CLIA requirements. One or more of these tests have not been cleared or approved by the FDA. [facility] is regulated under CLIA as qualified to perform high-complexity testing. These tests are used for clinical purposes. They should not be regarded as investigational or for research. Positive and negative controls stain appropriately. Performed By: #### 5 0190-8, 2276-4 #### [facility] CLIA [id number] [address] [place] [address] FINAL DIAGNOSIS Normal [facility] Comment on above: Order Comment: Speci men Type: BLOOD SPECIMEN [facility]ing Facility: [facility] Address: [address] [place] [address] Result Comment: Righ t breast, anterior, calcifications, [...] in lobular neoplasia and non-neoplastic breast epithelium. [facility] 10/09/23 Performed By: #### 5 0190-8, 2276-4 #### [facility] CLIA [id number] [address] [place] [address] [place] FINAL PERFORMING LAB Normal [facility] Comment on above: Order Comment: Speci men Type: BLOOD SPECIMEN Ordering Facility: [facility] Address: [address] [place] [address] Result Comment: Diag nostic interpretation performed at [facility], [address] [place] [address] CLIA# [id number] Felt Machine Mechanic: Tavo Roberts M.D. Performed By: #### 5 0190-8, 2276-4 #### [facility] CLIA [id number] [address] [place] [address] [place] GROSS DESCRIPTION Normal [facility] Comment on above: Order Comment: Speci men Type: BLOOD SPECIMEN Ordering Facility: [facility] Address: [address] [place] [address] Result Comment: A. Charles reast, Right, Core [...] 2023 9:42 PM Gross examination performed at [facility], [address] [place] [address] Performed By: #### 5 0190-8, 2276-4 #### [facility] CLIA [id number] [address] [place] [address] OF [facility] CNOVon 09-15-2023 CNOV Office Visit (INTMWS ) -------- ALBERTO RODRIGUEZ ([id number]) 1935 F Date Time Provider Department 09/15/23 12:20 PM ANGÉLICA PULIDO INTMWS During your visit today, we recorded the following information about you: Pulse Respiration Blood pressure Weight 80/minute 16/minute 105/64 60.8 kg Angélica Pulido APRN.STOCK BLENDER 09/15/2023 12:55 PM Signed SUBJECTIVE: Covid-19 Vaccine( [...] IF UNABLE, PLEASE REFER TO [facility] AT [facility]. DX: EDEMA multivitamin tablet Take 1 tablet [...] Ref Rng (more content not included)... [facility] Telephone (INTMWS) -------- ALBERTO RODRIGUEZ ([id number]) 1935 F Date Time Provider Department 09/05/23 RAMANDEEP ALVAREZ During your visit today, we recorded the following information about you: Mara Gimenez LPN 09/05/2023 8:14 AM Signed ----- Message from Angélica Pulido APRN.STOCK BLENDER sent at 09/03/2023 2:08 PM EDT ----- FOBT negative Mara Gimenez LPN 09/05/2023 8:14 AM Signed Left a message for pt to call the office and ask to speak to a nurse. CHIQUITA Siu Laurie Lynn, LPN 09/05/2023 8:15 AM Signed ----- Message from Angélica Pulido APRN.STOCK BLENDER sent at 09/03/2023 3:49 PM EDT ----- [...] IF UNABLE, PLEASE REFER TO [facility] AT [facility]. DX: EDEMA - multivitamin tablet Take 1 [...] Encounter Status:Closed by BLANCA SMITH on 09/05/23 [facility] CNOVon 08-29-2023 CNOV Office Visit (GENSWS ) -------- ALBERTO RODRIGUEZ ([id number]) 1935 F Date Time Provider Department 08/29/23 [...] mammogram, 07/01/2021 mammogram, and 06/03/2020 mammogram - [facility]. Color flow and real-time ultrasound of the [...] the past. (more content not included)... Normal [facility] DBT Breast - bilateral diagn ostic for implanton 08-22-2023 * * *Final Report* * * DATE OF EXAM: Aug 22 2023 8:35AM [facility]W 0627 - [facility] JEREMIAS Ocampo ARMANDO EMELIA / PROCEDURE REASON: Abnormal mammogram of both breasts * * * * Physician Interpretation * * * * RESULT: #[id number] - [facility]I JEREMIAS Ocampo ARMANDO EMELIA #[id number] - [facility] US BREAST LTD LT BILATERAL DIGITAL DIAGNOSTIC [...] mammogram, 07/01/2021 mammogram, and 06/03/2020 mammogram - [facility]. The breasts are heterogeneously dense, which may [...] in either breast. DIVISION OF RADIOLOGY Provider, [facility] - 08/22/2023 * * *Final Report* * * DATE OF EXAM: Aug 22 2023 8:35AM [facility] 0627 - [facility] DIAG W ARMANDO EMELIA / PROCEDURE REASON: Abnormal mammogram of both breasts * * * * Physician Interpretation * * * * RESULT: #[id number] - [facility] DIAG W ARMANDO EMELIA #[id number] - [facility] BREAST [facility] BILATERAL DIGITAL DIAGNOSTIC MAMMOGRAM TOMOSYNTHESIS WITH CAD: [...] mammogram, 07/01/2021 mammogram, and 06/03/2020 mammogram - [facility]. The breasts are heterogeneously dense, which may [...] mammogram, 07/01/2021 mammogram, and 06/03/2020 mammogram - [facility]. Color flow and real-time ultrasound of the [...] Health, Family Medicine, and Medical/Surgical Oncology, the [facility] has carefully reviewed the data and reached [...] their providers when to stop screening mammograms. Golf Course Designer(s): Libertad Allan RT(R)(M), [facility]; Izzy Andrea, [facility] OVERALL STUDY BIRADS: 4 Suspicious finding - Biopsy should be considered Fast Food Cashier: Tera Transcribe Date/Time: Aug 22 2023 8:05A Dictated by: PATRICE HIGHTOWER MD This examination was interpreted and the report reviewed and electronically signed by: PATRICE HIGHTOWER MD on Aug 22 2023 9:30AM EST [facility] No Panel Informationon 08-21 IMPRESSION: SUSPICIO US [...] mammogram, 07/01/2021 mammogram, and 06/03/2020 mammogram - [facility]. Color flow and real-time ultrasound of the [...] Health, Family Medicine, and Medical/Surgical Oncology, the [facility] has carefully reviewed the data and reached [...] their providers when to stop screening mammograms. Golf Course Designer(s): RT Jailene(R)(M), [facility]; Izzy Andrea, [facility] OVERALL STUDY BIRADS: 4 Suspicious finding - Biopsy should be considered Fast Food Cashier: Tera Transcribe Date/Time: Aug 22 2023 8:05A Dictated by: PATRICE HIGHTOWER MD This examination was interpreted and the report reviewed and electronically signed by: PATRICE HIGHTOWER MD on Aug 22 2023 9:30AM [facility] DIVISION OF RADIOLOGY Radiology Study observation (narrative) [facility] No Panel InformationOrdered By: Ccf Provider on 08-22-2023 [facility] Breast - left limitedon 0 08-22-2023 * * *Final Report* * * DATE OF EXAM: Aug 22 2023 8:49AM WRU 0593 - [facility] [employer] BREAST LTD LT / PROCEDURE REASON: Abnormal mammogram of both breasts * * * * Physician Interpretation * * * * #[id number] - [facility] JEREMIAS W ARMANDO EMELIA #[id number] - [facility] [employer] BREAST LTD LT BILATERAL DIGITAL DIAGNOSTIC MAMMOGRAM [...] mammogram, 07/01/2021 mammogram, and 06/03/2020 mammogram - [facility]. The breasts are heterogeneously dense, which may [...] in either breast. DIVISION OF RADIOLOGY [facility] - 08/22/2023 * * *Final Report* * * DATE OF EXAM: Aug 22 2023 8:49AM WRU 0593 - [employer] BREAST LTD LT / PROCEDURE REASON: Abnormal mammogram of both breasts * * * * Physician Interpretation * * * * #[id number] - [facility] DIAG W ARMANDO EMELIA #[id number] - [facility] [employer] BREAST LTD LT BILATERAL DIGITAL DIAGNOSTIC MAMMOGRAM [...] mammogram, 07/01/2021 mammogram, and 06/03/2020 mammogram - [facility]. The breasts are heterogeneously dense, which may [...] mammogram, 07/01/2021 mammogram, and 06/03/2020 mammogram - [facility]. Color flow and real-time ultrasound of the [...] Health, Family Medicine, and Medical/Surgical Oncology, the [facility] has carefully reviewed the data and reached [...] their providers when to stop screening mammograms. Golf Course Designer(s): RT Jailene(R)(M), [facility]; Izzy Andrea, [facility] OVERALL STUDY BIRADS: 4 Suspicious finding - Biopsy should be considered Fast Food Cashier: Tera Transcribe Date/Time: Aug 22 2023 8:05A Dictated by : PATRICE HIGHTOWER MD This examination was interpreted and the report reviewed and electronically signed by: PATRICE HIGHTOWER MD on Aug 22 2023 9:30AM EST [facility] CBC W Auto Differential pane l (Bld)on 07-11-2023 Basophils (Bld) [#/Vol] 0.07 10*3/uL <0.11 k/uL [facility] Basophils/100 WBC (Bld) 0.9 % [facility] Differential cell count method Nom (Bld) Auto [facility] Eosinophils (Bld) [#/Vol] 0.15 10*3/uL <0.46 k/uL [facility] Eosinophils/100 WBC (Bld) 1.9 % [facility] Erythrocyte distribution width (RBC) [Ratio] 16.6 % High 11.5 - 15.0 % [facility] Hematocrit (Bld) [Volume fraction] 35.2 % Low 36.0 - 46.0 % [facility] Hemoglobin (Bld) [Mass/Vol] 10.8 g/dL Low 11.5 - 15.5 g/dL [facility] Immature granulocytes (Bld) [#/Vol] 0.04 10*3/uL <0.10 k/uL [facility] Immature granulocytes/100 WBC (Bld) 0.5 % [facility] Lymphocytes (Bld) [#/Vol] 1.65 10*3/uL 1.00 - 4.00 k/uL [facility] Lymphocytes/100 WBC (Bld) 20.6 % [facility] MCH (RBC) [Entitic mass] 25.4 pg Low 26.0 - 34.0 pg [facility] MCHC (RBC) [Mass/Vol] 30.7 g/dL 30.5 - 36.0 g/dL [facility] MCV (RBC) [Entitic vol] 82.8 fL 80.0 - 100.0 fL [facility] Monocytes (Bld) [#/Vol] 0.65 10*3/uL <0.87 k/uL [facility] Monocytes/100 WBC (Bld) 8.1 % [facility] Neutrophils (Bld) [#/Vol] 5.46 10*3/uL 1.45 - 7.50 k/uL [facility] Neutrophils/100 WBC (Bld) 68.0 % [facility] Nucleated RBC (Bld) [#/Vol] <0.01 k/uL [facility] Nucleated RBC/100 WBC (Bld) [Ratio] 0.0 /100 WBC [facility] Platelet mean volume (Bld) [Entitic vol] 9.3 fL 9.0 - 12.7 fL [facility] Platelets (Bld) [#/Vol] 407 10*3/uL High 150 - 400 k/uL [facility] RBC (Bld) [#/Vol] 4.25 10*6/uL 3.90 - 5.2 0 m/uL [facility] WBC (Bld) [#/Vol] 8.02 10*3/uL 3.70 - 11. 00 k/uL [facility] Comprehensive metabolic 2000 panelon 07-11-2023 Albumin [Mass/Vol] 4.1 g/dL 3.9 - 4.9 g/dL [facility] ALP [Catalytic activity/Vol] 111 U/L 34 - 123 U/L [facility] ALT [Catalytic activity/Vol] 14 U/L 7 - 38 U/L [facility] Anion gap [Moles/Vol] 14 mmol/L 9 - 18 mmol/L [facility] AST [Catalytic activity/Vol] 24 U/L 13 - 35 U/L [facility] Bilirubin [Mass/Vol] 0.2 mg/dL 0.2 - 1 .3 mg/dL [facility] Calcium [Mass/Vol] 9.8 mg/dL 8.5 - 10. 2 mg/dL [facility] Chloride [Moles/Vol] 102 mmol/L 97 - 10 5 mmol/L [facility] CO2 [Moles/Vol] 24 mmol/L 22 - 30 mmol/L [facility] Creatinine [Mass/Vol] 1.00 mg/dL High 0.58 - 0.96 mg/dL [facility] Estimated Glomerular Filtration Rate 55 mL/min/1.73m Low >=60 mL/min/1.73m [facility] Glucose [Mass/Vol] 83 mg/dL 74 - 99 mg/dL [facility] Potassium [Moles/Vol] 4.7 mmol/L 3.7 - 5.1 mmol/L [facility] Protein [Mass/Vol] 7.6 g/dL 6.3 - 8.0 g/dL [facility] Sodium [Moles/Vol] 140 mmol/L 136 - 144 mmol/L [facility] Urea nitrogen [Mass/Vol] 19 mg/dL 7 - 21 mg/dL [facility] Lipid 1996 panelon 4 Cholesterol [Mass/Vol] 209 mg/dL High <200 mg/dL [facility] Cholesterol in HDL [Mass/Vol] 74 mg/dL >39 mg/dL [facility] Cholesterol in LDL [Mass/Vol] 106 mg/dL High <100 mg/dL [facility] Cholesterol in LDL/Cholesterol in HDL [Mass ratio] 1.43 {ratio} <2.54 [facility] Cholesterol in VLDL [Mass/Vol] 29 mg/dL <30 mg/dL [facility] Cholesterol non HDL [Mass/Vol] 135 mg/dL High <130 mg/dL [facility] Cholesterol.total/Chol esterol in HDL [Mass ratio] 2.82 {ratio} <5.10 [facility] Fasting Time 15 hrs [facility] Triglyceride [Mass/Vol] 147 mg/dL <150 mg/dL [facility] THYROID STIMULATING HORMONEo n 07-11-2023 TSH Qn 4.470 m[IU]/L High 0.270 - 4.200 mIU/L [facility] XR HIP GENERAL 3V PELV/AP/LA T LEFTon 07-08-2022 [facility] XR Pelvis and Hip - left AP and Lateral frogon 07-08-2022 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 Fast Food Cashier: BUTCH Transcribe Date/Time: Jul 08 2022 7:09P Dictated by : KILLIAN MEZA MD This examination was interpreted and the report reviewed and electronically signed by: KILLIAN MEZA MD on Jul 08 2022 7:15PM [facility] DIVISION OF RADIOLOGY * * *Final Report* [...] IMPRESSION 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 Fast Food Cashier: [facility] Transcribe Date/Time: Jul 08 2022 7:09P Dictated by : KILLIAN MEZA MD This examination was interpreted and the report reviewed and electronically signed by: KILLIAN MEZA MD on Jul 08 2022 7:15PM EST [facility] Radiology Study observation (narrative) [facility] XR Pelvis and Hip - left AP and Lateral frogOrdered By: Ccf Provider on 07-08-2022 [facility] Brain/Head without Contrasto n 11-24-2021 Brain/Head without Contrast [facility] Imaging Services [address] [place] [address] Brain/Head without Contrast MR#: [id number] Acct: [id number] Name: ALBERTO RODRIGUEZ Rep #: [id number] : 1935 F 86 From: Lucas jung MD PCP: Dr. Ramandeep Alvarez MD Status: PRE ER Study: Brain/Head without Contrast Date of Exam: 10/27 04/17 Exam# [id number] Ordering Dr: Daniel Wheeler DO STUDY: CT [...] 12:53 EDT Reading Location ID and State: [facility] [place] , Service support , CC: Dr. Ramandeep Alvarez MD; Dr. Daniel Wheeler, Fast Food Cashier: Signed Normal [facility] CBC W/Diff, Automatedon 08-3 Absolute Lymph 1.57 X10 3/uL Normal 0.83-4.51 [facility] Comment on above: Performed By: #### L 500.4050, L100.0100 #### [facility] [address] [place], [address] Absolute Neut 4.2 X10 3/uL Normal 2.0-7.7 [facility] Comment on above: Performed By: #### L 500.4050, L100.0100 #### [facility] [address] [place], [address] Basophils/100 WBC (Bld) 1.1 % High 0-1 [facility] Comment on above: Performed By: #### L 500.4050, L100.0100 #### [facility] [address] [place], [address] Eosinophils/100 WBC (Bld) 1.6 % Normal 0-5 [facility] Comment on above: Performed By: #### L 500.4050, L100.0100 #### [facility] [address] [place], [address] Erythrocyte distribution width (RBC) [Ratio] 15.9 % High 11.6-14.6 [facility] Comment on above: Performed By: #### L 500.4050, L100.0100 #### [facility] [address] [place], [address] Hematocrit (Bld) [Volume fraction] 36.1 % Low 37-47 [facility] Comment on above: Performed By: #### L 500.4050, L100.0100 #### [facility] [address] [place], [address] Hemoglobin (Bld) [Mass/Vol] 11.2 g/dL Low 12.0-15.0 [facility] Comment on above: Performed By: #### L 500.4050, L100.0100 #### [facility] [address] [place], [address] IG% 0.500 Normal 0.0-0.9 [facility] Comment on above: Result Comment: IG% - Immature Granulocytes (promyelocytes, myelocytes and metamyelocytes) > 1% indicates that a LEFT SHIFT is Present. Performed By: #### L 500.4050, L100.0100 #### [facility] [address] [place], [address] Lymphocytes/100 WBC (Bld) 24.6 % Normal 19-41 [facility] Comment on above: Performed By: #### L 500.4050, L100.0100 #### [facility] [address] [place], [address] MCH (RBC) [Entitic mass] 26.1 pg Low 27.0-32.0 [facility] Comment on above: Performed By: #### L 500.4050, L100.0100 #### [facility] [address] [place], [address] MCHC (RBC) [Mass/Vol] 31.0 g/dL Low 32-36 [facility] Comment on above: Performed By: #### L 500.4050, L100.0100 #### [facility] [address] [place], [address] MCV (RBC) [Entitic vol] 84.1 fL Normal 81-99 [facility] Comment on above: Performed By: #### L 500.4050, L100.0100 #### [facility] [address] [place], [address] Monocytes/100 WBC (Bld) 6.3 % Normal 0-10 [facility] Comment on above: Performed By: #### L 500.4050, L100.0100 #### [facility] [address] [place], [address] Neutrophils/100 WBC (Bld) 65.9 % Normal 47-70 [facility] Comment on above: Performed By: #### L 500.4050, L100.0100 #### [facility] [address] [place], [address] Nucleated RBC (Bld) [#/Vol] 0 10*3/uL Normal 0-5 [facility] Comment on above: Performed By: #### L 500.4050, L100.0100 #### [facility] [address] [place], [address] Platelet mean volume (Bld) [Entitic vol] 9.1 fL Normal 6.2-12.0 [facility] Comment on above: Performed By: #### L 500.4050, L100.0100 #### [facility] [address] [place], [address] Platelets (Bld) [#/Vol] 336 10*3/uL Normal 150-450 [facility] Comment on above: Performed By: #### L 500.4050, L100.0100 #### [facility] [address] [place], [address] RBC (Bld) [#/Vol] 4.29 10*6/uL Normal 4.2-5.4 [facility] Comment on above: Performed By: #### L 500.4050, L100.0100 #### [facility] [address] [place], [address] RDW SD 49.0 fl High 35.1-43.9 [facility] Comment on above: Performed By: #### L 500.4050, L100.0100 #### [facility] [address] [place], [address] WBC (Bld) [#/Vol] 6.4 10*3/uL Normal 4.4-11.0 [facility] Comment on above: Performed By: #### L 500.4050, L100.0100 #### [facility] [address] [place], [address] [facility] 11-24-2021 Albumin [Mass/Vol] 3.4 g/dL Normal 3.2-5.0 [facility] Comment on above: Performed By: #### L 500.4050, L100.0100 #### [facility] [address] [place], [address] Albumin/Globulin [Mass ratio] 0.8 {ratio} Low 0.9-2.4 [facility] Comment on above: Performed By: #### L 500.4050, L100.0100 #### [facility] [address] [place], [address] ALK P 86 U/L Normal 45-117 [facility] Comment on above: Performed By: #### L 500.4050, L100.0100 #### [facility] [address] [place], [address] ALT [Catalytic activity/Vol] 18 U/L Normal 13-56 [facility] Comment on above: Performed By: #### L 500.4050, L100.0100 #### [facility] [address] [place], [address] AST [Catalytic activity/Vol] 17 U/L Normal 15-37 [facility] Comment on above: Performed By: #### L 500.4050, L100.0100 #### [facility] [address] [place], [address] Bilirubin [Mass/Vol] 0.30 mg/dL Normal 0.20-1.00 [facility] Comment on above: Result Comment: For patients on eltrombopag therapy, use of Dimension [place] TBIL is not recommended. Performed By: #### L 500.4050, L100.0100 #### [facility] [address] [place], [address] BUN/CRE 15.9 RATIO Normal 10-20 [facility] Comment on above: Performed By: #### L 500.4050, L100.0100 #### [facility] [address] [place], [address] CA,Total 9.0 mg/dL Normal 8.5-10.1 [facility] Comment on above: Performed By: #### L 500.4050, L100.0100 #### [facility] [address] [place], [address] Chloride [Moles/Vol] 104 mmol/L Normal 98-107 [facility] Comment on above: Performed By: #### L 500.4050, L100.0100 #### [facility] [address] [place], [address] CO2 [Moles/Vol] 30.0 mmol/L Normal 21.0-32.0 [facility] Comment on above: Performed By: #### L 500.4050, L100.0100 #### [facility] [address] [place], [address] Creatinine [Mass/Vol] 0.82 mg/dL Normal 0.55-1.02 [facility] Comment on above: Result Comment: The validity of the calculated GFR GFRAA in patients over 70 years has not been determined. Clinical correlation is essential. Performed By: #### L 500.4050, L100.0100 #### [facility] [address] [place], [address] ECRCL 40.39 ml/min Normal [facility] Comment on above: Performed By: #### L 500.4050, L100.0100 #### [facility] [address] [place], [address] EST GFR - AA 86 mL/min Normal >60 [facility] Comment on above: Result Comment: Afri can [place] GFR Calc Performed By: #### L 500.4050, L100.0100 #### [facility] [address] [place], [address] GAP 4 Low 5-15 [facility] Comment on above: Performed By: #### L 500.4050, L100.0100 #### [facility] [address] [place], [address] GFR/1.73 sq M.predicted among non-blacks MDRD (S/P/Bld) [Vol rate/Area] 71 mL/min/{1.73_m2} Normal >60 [facility] Comment on above: Result Comment: Non- GFR Calc Performed By: #### L 500.4050, L100.0100 #### [facility] [address] [place], [address] Globulin (S) [Mass/Vol] 4.1 g/dL Normal 2.2-4.2 [facility] Comment on above: Performed By: #### L 500.4050, L100.0100 #### [facility] [address] [place], [address] Glucose [Mass/Vol] 95 mg/dL Normal 74-106 [facility] Comment on above: Performed By: #### L 500.4050, L100.0100 #### [facility] [address] [place], [address] Potassium [Moles/Vol] 4.1 mmol/L Normal 3.5-5.1 [facility] Comment on above: Performed By: #### L 500.4050, L100.0100 #### [facility] [address] [place], [address] Sodium [Moles/Vol] 138 mmol/L Normal 136-145 [facility] Comment on above: Performed By: #### L 500.4050, L100.0100 #### [facility] [address] [place], [address] T PROT 7.5 g/dL Normal 6.4-8.2 [facility] Comment on above: Performed By: #### L 500.4050, L100.0100 #### [facility] [address] [place], [address] Urea nitrogen [Mass/Vol] 13 mg/dL Normal 7-18 [facility] Comment on above: Performed By: #### L 500.4050, L100.0100 #### [facility] [address] [place], [address] Emergency Department Summary on 11-24-2021 Emergency Department Summary [facility] Medical Records Department [address] [place] [address] Emergency Department Summary 11/24/21 MR#: [id number] Acct: [id number] Name: ALBERTO RODRIGUEZ Rep #: [id number] : 1935 86 From: Daniel Wheeler DO [...] shortness of breath. Patient denies any photophobia. [facility] Medical History (Updated 11/24/21 @ 13:40 [...] and hemat (more content not included)... Normal [facility] CARDIAC PERF STRESS/EXERC ISEon 07-29-2021 [place] CARDIAC PERF STRESS/EXERCISE * * *Final Report* * * DATE OF EXAM: Jul 29 2021 11:36AM BELKIS 0004 - [place] CARDIAC PERF STRESS/EXERCISE / PROCEDURE REASON: Z13.6-Encounter for screening for cardiovascular disorders * * * * Physician Interpretation * * * * Stress Director Of Retail Analytics Report: [facility] Date of service: 07/29/2021 9:44:26 AM Supervising [...] exam available for comparison. Nuclear Med Report:1-Day My-90t-Rvxlljdtrrq Exercise Stress Gated SPECT: Myocardial perfusion imaging was performed at rest 30 to 60 minutes following the IV injection of Tc-99m tetrofosmin. One minute prior to peak exercise, the patient was injected IV with Tc-99m tetrofosmin. Gated post stress tomographic imaging was performed 10 to 20 minutes later. See administered doses below. [facility] Date of service: 07/29/2021 9:44:26 AM Ordering [...] of scarring. Final -- Stress ECG Report: [facility] Date of service: 07/29/2021 9:44:26 AM Ordering physician: RAMANDEEP ALVAREZ landscaping specialist: Jennifer Yeager Missile Control Pilot: Melisa Means Interpreting physician: Hugh Bruno DO [...] 168/76 mmHg. The double product achieved was [address]. Medications: Last Used PAMELOR PRAVACHOL LASIX POTASSIUM ASPIRIN CALCIUM Resting ECG: Normal Sinus Rhythm Symptoms at rest: No symptoms Exercise Protocol: Eliot Stress Exercise Table: +-----+ +----- ---+ +---+---+- --+----+----+ Stage Speed (MPH) Grade(%) Time (min) HR SYS EVA RPE METS +-----+ +----- ---+ +---+---+- --+----+----+ 1 1.7 10.0 3.0 123 154 76 13.0 4.2 +-----+ +----- --- (more content not included)... Normal [facility] 07-28-2021 CNPN Telephone (CDLBME) -------- ALBERTO RODRIGUEZ ([id number]) 1935 F Date Time Provider Department 07/28/21 [...] Fully Assessed Reason for Visit: Reminder Call [[id number]] Prescriptions as of 07/28/2021 - estradiol (ESTRACE) [...] IF UNABLE, PLEASE REFER TO [facility] AT [facility]. DX: EDEMA - multivitamin tablet Take 1 [...] Encounter Status:Closed by MELISA MEANS on 07/28/21 [facility] CT CHEST W IVCON PEon 2021 [facility] VALERI SCREENING W TOMOon 07-01 [facility] Vital Signs Date Time Vital Sign Value Performing Clinician Facility 08-22-2024 13:23-0400 Body temperature 98.01 [degF] Treatment Wstr Work Phone: [facility] 08-22-2024 13:23-0400 Diastolic blood pressure 69 mm[Hg] Treatment Wstr Work Phone: [facility] 08-22-2024 13:23-0400 Heart rate 94 /min [facility] Wstr [facility] [facility] 08-22-2024 13:23-0400 SaO2% (BldA) [Mass fraction] 97 % Treatment Wstr Work Phone: [facility] 08-22-2024 13:23-0400 Systolic blood pressure 152 mm[Hg] Treatment Wstr Work Phone: [facility] 07-04-2024 10:06-0400 Body mass index (BMI) [Ratio] 26.65 kg/m2 [place] Carrero BANKING TEACHER.MACHINE MAINTENANCE SERVICER Work Phone: [facility] 07-04-2024 10:06-0400 Body temperature 98.49 [degF] Susan Carrero BANKING TEACHER.MACHINE MAINTENANCE SERVICER Work Phone: [facility] 07-04-2024 10:06-0400 Body weight 61.9 kg Susan Carrero BANKING TEACHER.MACHINE MAINTENANCE SERVICER Work Phone: [facility] 07-04-2024 10:06-0400 Diastolic blood pressure 65 mm[Hg] Susan Carrero BANKING TEACHER.MACHINE MAINTENANCE SERVICER Work Phone: [facility] 07-04-2024 10:06-0400 Heart rate 92 /min Susan Carrero BANKING TEACHER.MACHINE MAINTENANCE SERVICER Work Phone: [facility] 07-04-2024 10:06-0400 SaO2% (BldA) [Mass fraction] 98 % Susan Carrero BANKING TEACHER.MACHINE MAINTENANCE SERVICER Work Phone: [facility] 07-04-2024 10:06-0400 Systolic blood pressure 113 mm[Hg] Susan Carrero BANKING TEACHER.MACHINE MAINTENANCE SERVICER Work Phone: [facility] 01-09-2024 10:02-0400 Body height 152.4 cm Ramandeep Alvarez MD Work Phone: [facility] 01-09-2024 10:02-0400 Body mass index (BMI) [Ratio] 25.4 kg/m2 Ramandeep Alvarez MD Work Phone: [facility] 01-09-2024 10:02-0400 Body weight 59 kg Ramandeep Alvarez MD Work Phone: [facility] 01-09-2024 10:02-0400 Diastolic blood pressure 72 mm[Hg] Ramandeep Alvarez MD Work Phone: [facility] 01-09-2024 10:02-0400 Heart rate 89 /min Ramandeep Alvarez MD Work Phone: [facility] 01-09-2024 10:02-0400 Respiratory rate 16 /min Ramandeep Alvarez MD Work Phone: [facility] 01-09-2024 10:02-0400 Systolic blood pressure 122 mm[Hg] Ramandeep Alvarez MD Work Phone: [facility] 01-02-2024 09:19-0400 Body mass index (BMI) [Ratio] 25.58 kg/m2 Laney Jovani DO Work Phone: [facility] 01-02-2024 09:19-0400 Body temperature 98.2 [degF] Laney Jovani DO Work Phone: [facility] 01-02-2024 09:19-0400 Body weight 59.42 kg Laney Masci DO Work Phone: [facility] 01-02-2024 09:19-0400 Diastolic blood pressure 67 mm[Hg] Laney Masci DO Work Phone: [facility] 01-02-2024 09:19-0400 Heart rate 82 /min Laney Masci DO Work Phone: [facility] 01-02-2024 09:19-0400 SaO2% (BldA) [Mass fraction] 99 % Laney Masci DO Work Phone: [facility] 01-02-2024 09:19-0400 Systolic blood pressure 106 mm[Hg] Laney Masci DO Work Phone: [facility] 12-18-2023 12:40-0400 Body temperature 98.1 [degF] Loy Kwon MD Work Phone: [facility] 12-18-2023 12:40-0400 Diastolic blood pressure 68 mm[Hg] Loy Kwon MD Work Phone: [facility] 12-18-2023 12:40-0400 Heart rate 85 /min Loy Kwon MD Work Phone: [facility] 12-18-2023 12:40-0400 Respiratory rate 18 /min Loy Kwon MD Work Phone: [facility] 12-18-2023 12:40-0400 SaO2% (BldA) [Mass fraction] 94 % Loy Kwon MD Work Phone: [facility] 12-18-2023 12:40-0400 Systolic blood pressure 137 mm[Hg] Loy Kwon MD Work Phone: [facility] 12-18-2023 07:21-0400 Body mass index (BMI) [Ratio] 25.83 kg/m2 Loy Kwon MD Work Phone: [facility] 12-18-2023 07:21-0400 Body weight 60 kg Loy Kwon MD Work Phone: [facility] 12-11-2023 09:15-0400 Body mass index (BMI) [Ratio] 26.17 kg/m2 Ramandeep Alvarez MD Work Phone: [facility] 12-11-2023 09:15-0400 Body weight 60.78 kg Ramandeep Alvarez MD Work Phone: [facility] 12-11-2023 09:15-0400 Diastolic blood pressure 70 mm[Hg] Ramandeep Alvarez MD Work Phone: [facility] 12-11-2023 09:15-0400 Heart rate 80 /min Ramandeep Alvarez MD Work Phone: [facility] 12-11-2023 09:15-0400 Respiratory rate 16 /min Ramandeep Alvarez MD Work Phone: [facility] 12-11-2023 09:15-0400 Systolic blood pressure 110 mm[Hg] Ramandeep Alvarez MD Work Phone: [facility] 12-08-2023 13:23-0400 Body height 152.4 cm Pacc 1 Work Phone: [facility] 12-08-2023 13:23-0400 Body mass index (BMI) [Ratio] 26.37 kg/m2 Pacc 1 Work Phone: [facility] 12-08-2023 13:23-0400 Body temperature 97.81 [degF] Pacc 1 Work Phone: [facility] 12-08-2023 13:23-0400 Body weight 61.24 kg Pacc 1 Work Phone: [facility] 12-08-2023 13:23-0400 Diastolic blood pressure 78 mm[Hg] Pacc 1 Work Phone: [facility] 12-08-2023 13:23-0400 Heart rate 89 /min Pacc 1 Work Phone: [facility] 12-08-2023 13:23-0400 Respiratory rate 14 /min Pacc 1 Work Phone: [facility] 12-08-2023 13:23-0400 SaO2% (BldA) [Mass fraction] 96 % Pacc 1 Work Phone: [facility] 12-08-2023 13:23-0400 Systolic blood pressure 132 mm[Hg] Pacc 1 Work Phone: [facility] 11-08-2023 14:00-0400 Body mass index (BMI) [Ratio] 25.97 kg/m2 Laney Ignacio DO Work Phone: [facility] 11-08-2023 14:00-0400 Body weight 60.78 kg Laney Ignacio DO Work Phone: [facility] 11-08-2023 14:00-0400 Systolic blood pressure 104 mm[Hg] Laney Ignacio DO Work Phone: [facility] 11-08-2023 13:21-0400 Body height 153 cm Laney Ignacio DO Work Phone: [facility] Comment on above: Verified with Darlyn Glynn RN 11-08-2023 13:21-0400 Body mass index (BMI) [Ratio] 26.05 kg/m2 Jililan Delgado MD Work Phone: [facility] 11-08-2023 13:21-0400 Body temperature 98.29 [degF] Laney Ignacio DO Work Phone: [facility] 11-08-2023 13:21-0400 Body weight 61.01 kg Jillian Delgado MD Work Phone: [facility] 11-08-2023 13:21-0400 Diastolic blood pressure 63 mm[Hg] Laney Ignacio DO Work Phone: [facility] 11-08-2023 13:21-0400 Heart rate 85 /min Laney Ignacio DO Work Phone: [facility] 11-08-2023 13:21-0400 SaO2% (BldA) [Mass fraction] 94 % Laney Ignacio DO Work Phone: [facility] 11-08-2023 13:21-0400 Systolic blood pressure 109 mm[Hg] Jillian Delgado MD Work Phone: [facility] 09-15-2023 12:27-0400 Body mass index (BMI) [Ratio] 25.32 kg/m2 Angélica Pulido BANKING TEACHER.STOCK BLENDER Work Phone: [facility] 09-15-2023 12:27-0400 Body weight 60.78 kg Angélica Pulido BANKING TEACHER.STOCK BLENDER Work Phone: [facility] 09-15-2023 12:27-0400 Diastolic blood pressure 64 mm[Hg] Angélica Pulido BANKING TEACHER.STOCK BLENDER Work Phone: [facility] 09-15-2023 12:27-0400 Heart rate 80 /min Angélica Pulido BANKING TEACHER.STOCK BLENDER Work Phone: [facility] 09-15-2023 12:27-0400 Respiratory rate 16 /min Angélica Pulido BANKING TEACHER.STOCK BLENDER Work Phone: [facility] 09-15-2023 12:27-0400 Systolic blood pressure 105 mm[Hg] Angélica Pulido BANKING TEACHER.STOCK BLENDER Work Phone: [facility] 08-29-2023 14:55-0400 Body height 154.9 cm Riley Gregory MD Work Phone: [facility] 08-29-2023 14:55-0400 Body mass index (BMI) [Ratio] 26.26 kg/m2 Riley Gregory MD Work Phone: [facility] 08-29-2023 14:55-0400 Body weight 63.05 kg Riley Gregory MD Work Phone: [facility] 08-29-2023 14:55-0400 Diastolic blood pressure 64 mm[Hg] Riley Gregory MD Work Phone: [facility] 08-29-2023 14:55-0400 Systolic blood pressure 112 mm[Hg] Riley Gregory MD Work Phone: [facility] 07-11-2023 10:32-0400 Body weight 63.05 kg Angélica Pulido BANKING TEACHER.STOCK BLENDER Work Phone: [facility] 07-11-2023 10:32-0400 Diastolic blood pressure 58 mm[Hg] Angélica Pulido BANKING TEACHER.STOCK BLENDER Work Phone: [facility] 07-11-2023 10:32-0400 Heart rate 77 /min Angélica Pulido BANKING TEACHER.STOCK BLENDER Work Phone: [facility] 07-11-2023 10:32-0400 Respiratory rate 16 /min Angélica Pulido BANKING TEACHER.STOCK BLENDER Work Phone: [facility] 07-11-2023 10:32-0400 Systolic blood pressure 108 mm[Hg] Angélica Pulido BANKING TEACHER.STOCK BLENDER Work Phone: [facility] 01-05-2023 10:44-0400 Body weight 64.86 kg Angélica Pulido BANKING TEACHER.STOCK BLENDER Work Phone: [facility] 01-05-2023 10:44-0400 Diastolic blood pressure 61 mm[Hg] Angélica Pulido BANKING TEACHER.STOCK BLENDER Work Phone: [facility] 01-05-2023 10:44-0400 Heart rate 76 /min Angélica Pulido BANKING TEACHER.STOCK BLENDER Work Phone: [facility] 01-05-2023 10:44-0400 Respiratory rate 16 /min Angélica Pulido BANKING TEACHER.STOCK BLENDER Work Phone: [facility] 01-05-2023 10:44-0400 Systolic blood pressure 123 mm[Hg] Angélica Pulido BANKING TEACHER.STOCK BLENDER Work Phone: [facility] 09-30-2022 12:34-0400 Body weight 63.5 kg Angélica Pulido BANKING TEACHER.STOCK BLENDER Work Phone: [facility] 09-30-2022 12:34-0400 Diastolic blood pressure 62 mm[Hg] Angélica Pulido BANKING TEACHER.STOCK BLENDER Work Phone: [facility] 09-30-2022 12:34-0400 Heart rate 76 /min Angélica Pulido BANKING TEACHER.STOCK BLENDER Work Phone: [facility] 09-30-2022 12:34-0400 Respiratory rate 16 /min Angélica Pulido BANKING TEACHER.STOCK BLENDER Work Phone: [facility] 09-30-2022 12:34-0400 Systolic blood pressure 112 mm[Hg] Angélica Pulido BANKING TEACHER.STOCK BLENDER Work Phone: [facility] 07-19-2022 10:00-0400 Diastolic blood pressure 64 mm[Hg] Nick Golias PT Work Phone: [facility] 07-19-2022 10:00-0400 Systolic blood pressure 108 mm[Hg] Nick Golias PT Work Phone: [facility] 07-08-2022 14:26-0400 Body temperature 98.49 [degF] Breanna Older BANKING TEACHER.MACHINE MAINTENANCE SERVICER Work Phone: [facility] 07-08-2022 14:26-0400 Body weight 63.5 kg Breanna Older BANKING TEACHER.MACHINE MAINTENANCE SERVICER Work Phone: [facility] 07-08-2022 14:26-0400 Diastolic blood pressure 68 mm[Hg] Breanna Older BANKING TEACHER.MACHINE MAINTENANCE SERVICER Work Phone: [facility] 07-08-2022 14:26-0400 Heart rate 97 /min Breanna Older BANKING TEACHER.MACHINE MAINTENANCE SERVICER Work Phone: [facility] 07-08-2022 14:26-0400 Respiratory rate 16 /min Breanna Older BANKING TEACHER.MACHINE MAINTENANCE SERVICER Work Phone: [facility] 07-08-2022 14:26-0400 SaO2% (BldA) [Mass fraction] 98 % Breanna Older BANKING TEACHER.MACHINE MAINTENANCE SERVICER Work Phone: [facility] 07-08-2022 14:26-0400 Systolic blood pressure 120 mm[Hg] Breanna Older BANKING TEACHER.MACHINE MAINTENANCE SERVICER Work Phone: [facility] 04-14-2022 09:44-0500 Body temperature 97.7 [degF] Ramandeep Alvarez MD Work Phone: [facility] 04-14-2022 09:44-0500 Body weight 62.14 kg Ramandeep Alvarez MD Work Phone: [facility] 04-14-2022 09:44-0500 Diastolic blood pressure 72 mm[Hg] Ramandeep Alvarez MD Work Phone: [facility] 04-14-2022 09:44-0500 Heart rate 88 /min Ramandeep Alvarez MD Work Phone: [facility] 04-14-2022 09:44-0500 Respiratory rate 16 /min Ramandeep Alvarez MD Work Phone: [facility] 04-14-2022 09:44-0500 SaO2% (BldA) [Mass fraction] 98 % Ramandeep Alvarez MD Work Phone: [facility] 04-14-2022 09:44-0500 Systolic blood pressure 118 mm[Hg] Ramandeep Alvarez MD Work Phone: [facility] 06-18-2021 10:18-0400 Body height 154.9 cm Ramandeep Alvarez MD Work Phone: [facility] 06-18-2021 10:18-0400 Body temperature 97.59 [degF] Ramandeep Alvarez MD Work Phone: [facility] 06-18-2021 10:18-0400 Body weight 64.41 kg Ramandeep Alvarez MD Work Phone: [facility] 06-18-2021 10:18-0400 Diastolic blood pressure 56 mm[Hg] Ramandeep Alvarez MD Work Phone: [facility] 06-18-2021 10:18-0400 Heart rate 83 /min Ramandeep Alvarez MD Work Phone: [facility] 06-18-2021 10:18-0400 Respiratory rate 12 /min Ramandeep Alvarez MD Work Phone: [facility] 06-18-2021 10:18-0400 SaO2% (BldA) [Mass fraction] 99 % Ramandeep Alvarez MD Work Phone: [facility] 06-18-2021 10:18-0400 Systolic blood pressure 114 mm[Hg] Ramandeep Alvarez MD Work Phone: [facility] Encounters Encounter Date Encounter Type Care Provider Facility Start: 08-23-2024 End: 08-26-2024 Refill Ramandeep Alvarez MD Work Phone: Internal [facility] [place] Comment on above: Refill Request Start: 08-22-2024 End: 08-22-2024 ambulatory Treatment Rm 14 Joshua [facility] Work Phone: Hematology/Oncology Comment on above: Malignant neoplasm o f right breast in female, estrogen receptor positive, unspecified site of breast (HCC) (Primary Dx) Start: 08-22-2024 End: 08-22-2024 ambulatory RAMANDEEP ALVAREZ Facility:[facility] Start: 08-21-2024 End: 08-21-2024 Telephone encounter Oksana ROBLERO Hematology/Oncology Comment on above: Social Work Services Start: 08-05-2024 End: 08-09-2024 Telephone encounter Laney Ignacio DO Work Phone: Hematology/Oncology Comment on above: Dental Clearance - C hemotherapy Start: 07-08-2024 End: 09-07-2024 Follow-up encounter Susan Carrero APRN.MACHINE MAINTENANCE SERVICER Work Phone: Hematology/Oncology Start: 07-04-2024 End: 07-04-2024 Subsequent hospital visit by physician Screen Mammo [facility] Mammogram Comment on above: Atypical lobular hyp erplasia (ALH) of left breast [N60.92] Start: 07-04-2024 End: 07-04-2024 ambulatory Susan Carrero APRN.MACHINE MAINTENANCE SERVICER Work Phone: Hematology/Oncology Comment on above: Malignant neoplasm o f upper-outer quadrant of right breast in female, estrogen receptor positive (HCC) (Primary Dx) Start: 07-04-2024 End: 07-04-2024 Patient encounter procedure Susan Carrero APRN.MACHINE MAINTENANCE SERVICER Work Phone: Hematology/Oncology Start: 06-25-2024 End: 06-28-2024 ambulatory Ramandeep Alvarez MD Work Phone: Internal Medicine [place] [id number] Start: 04-04-2024 End: 04-04-2024 Telephone encounter Kimberly Chavez PA-C Work Phone: [facility] Comment on above: Appointment Start: 04-04-2024 End: 04-04-2024 ambulatory RAMANDEEP ALVAREZ Facility:[facility] Start: 04-04-2024 End: 04-04-2024 Patient encounter procedure Loy Kwon MD Work Phone: [facility] Comment on above: Malignant neoplasm o f upper-outer quadrant of right breast in female, estrogen receptor positive (HCC) (Primary Dx) Start: 02-05-2024 End: 02-05-2024 Refill Ramandeep Alvarez MD Work Phone: Internal Medicine [place] Comment on above: Refill Request Start: 01-09-2024 End: 01-09-2024 ambulatory RAMANDEEP ALVAREZ Facility:[facility] Start: 01-09-2024 End: 01-09-2024 Office outpatient visit [...] encounter procedure Ramandeep Alvarez MD Work Phone: [facility] Start: 01-02-2024 End: 01-02-2024 amb[address] Laney Ignacio DO Work Phone: Hematology/Oncology Comment on above: Malignant neoplasm o f upper-outer quadrant of right breast in female, estrogen receptor positive (HCC) (Primary Dx) Start: 01-02-2024 End: 01-02-2024 Patient encounter procedure Laney Ignacio DO Work Phone: Hematology/Oncology Start: 12-27-2023 End: 12-27-2023 ambulatory RAMANDEEP ALVAREZ Facility:[facility] Start: 12-27-2023 End: 12-27-2023 Patient encounter procedure Loy Kwon MD Work Phone: Breast Center Comment on above: Atypical lobular hyp erplasia (ALH) of left breast (Primary Dx); Malignant neoplasm of upper-outer quadrant of right breast in female, estrogen receptor positive (HCC) Start: 12-19-2023 End: 12-19-2023 Telephone encounter Nuris Alegria RN Breast Center Comment on above: Post Op Start: 12-18-2023 ambulatory RAMANDEEP GAN Facility:[facility] Start: 12-18-2023 End: 12-18-2023 Subsequent hospital visit by physician Loy Kwon MD Work Phone: Ambulatory Surgery Comment on above: Malignant neoplasm o f upper-outer quadrant of right breast in female, estrogen receptor positive (HCC) [C50.411, Z17.0], Atypical lobular hyperplasia (ALH) of left breast [N60.92] Start: 12-15-2023 End: 12-15-2023 [facility] Facility:[facility] Start: 12-15-2023 Encounter for other preprocedural examination [facility] Start: 12-13-2023 End: 12-13-2023 Nursing evaluation of patient and report Nuris Alegria RN Breast Center Comment on above: Malignant neoplasm o f upper-outer quadrant of right breast in female, estrogen receptor positive (HCC) (Primary Dx); Encounter for education Start: 12-13-2023 End: 12-13-2023 [facility] Facility:[facility] Start: 12-13-2023 End: 12-13-2023 Subsequent hospital visit by physician Procedure Mammo [facility] Mammography Start: 12-11-2023 End: 12-11-2023 [facility] Facility:[facility] Start: 12-11-2023 End: 12-11-2023 Office outpatient visit 25 minutes Ramandeep Alvarez MD Work Phone: Internal Medicine [place] Comment on above: Poison armin dermatiti s (Primary Dx); Hot flashes; Essential hypertension Start: 12-08-2023 End: 12-08-2023 Admission to establishment Pacc Joshua 1 Work Phone: Pre Anesthesia Start: 12-08-2023 End: 12-08-2023 [facility] Facility:[facility] Start: 12-08-2023 End: 12-08-2023 Anesthesia consultation Pacc [facility] 1 Work Phone: Pre Anesthesia Comment on [...] examination done Pac Joshua 1 Work Phone: [facility] Start: 11-28-2023 End: 12-01-2023 Telephone encounter Laney Ignacio DO Work Phone: Hematology/Oncology Comment on above: Appointment Start: 11-25-2023 End: 11-29-2023 Refill Ramandeep Alvarez MD Work Phone: [address] [place] [address] Comment on above: Refill Request Start: 11-23-2023 End: 11-27-2023 Telephone encounter Loy Kwon MD Work Phone: Breast [place] Comment on above: Results Schedule Surgery Breast Localization Start: 11-22-2023 End: 08-27-2024 Telephone encounter Loy Kwon MD Work Phone: Breast [place] Comment on above: mri biopsy result Results Start: 11-20-2023 ambulatory RAMANDEEP ALVAREZ Facility:[facility] Start: 11-20-2023 End: 11-20-2023 Subsequent hospital visit by physician Mri Main A10 (Large Bore/1.5t) Work Phone: MRI A10 Comment on above: Abnormal MRI, breast [R92.8] Start: 11-14-2023 End: 11-14-2023 ambulatory Ramandeep Alvarez MD Work Phone: [facility] Comment on above: Allied Health Visit (Medication Adherence Outreach ) Start: 11-08-2023 End: 11-08-2023 [facility] [place] Comment on above: Malignant neoplasm o f upper-outer quadrant of right breast in female, estrogen receptor positive (HCC) (Primary Dx); Anemia, unspecified type Start: 11-08-2023 End: 11-08-2023 Patient encounter procedure [facility]ranza [facility] [place] Comment on above: Population Health Na vigation Outreach [facility]) Malignant neoplasm o f upper-outer quadrant of right breast in female, estrogen receptor positive (HCC) (Primary Dx) Start: 11-08-2023 Telephone encounter Loy garibay MD Work Phone: [facility] Comment on above: Results Start: 11-07-2023 Orders Only Mo Gray MD Work Phone: Mammography Comment on above: Abnormal MRI, breast (Primary Dx) Results; Appointment Start: 11-06-2023 ambulatory UNKNOWN PROVIDER Facili ty:[facility] Start: 11-06-2023 End: 11-06-2023 Subsequent hospital visit by physician Mri [facility] (I-Stat/1.5t) RADIO MRI [facility] Comment on above: Abnormal ultrasound of breast [R92.8] Start: 11-06-2023 End: 11-06-2023 ambulatory [facility] Facility:[facility] Start: 11-06-2023 End: 11-06-2023 Subsequent hospital visit by physician Procedure Mammo [facility]amm[facility] Comment on above: Abnormal ultrasound of breast [R92.8] Start: 11-02-2023 Telephone encounter Kimberly ramirez PA-C Work Phone: Breast Center Comment on above: Appointment Start: 10-27-2023 End: 10-27-2023 ambulatory [facility] Facility:[facility] Start: 10-27-2023 End: 10-27-2023 Subsequent hospital visit by physician Diagnostic Mammo [facility] Mammography Comment on above: Breast disorder [N64 .9] Start: 10-24-2023 Telephone encounter Loy garibay MD Work Phone: [facility] Comment on above: Return Call Request Start: 10-23-2023 ambulatory Chanel Pascual MD Work Phone: Mammography Comment on above: Breast Problem Start: 10-23-2023 Patient encounter procedure Ca Pascual MD Work Phone: Mammography Start: 10-23-2023 Telephone encounter Loy garibay MD Work Phone: Breast Center Comment on above: MRI Report Start: 10-21-2023 ambulatory LOY Perdomo ty:[facility] Start: 10-21-2023 End: 10-21-2023 Subsequent hospital visit by physician Mri [facility] (I-Stat/1.5t) RADIO MRI [facility] Comment on above: Malignant neoplasm o f upper-outer quadrant of right breast in female, estrogen receptor positive (HCC) [C50.411, Z17.0] Start: 10-19-2023 End: 10-19-2023 ambulatory [facility] Facility:[facility] Start: 10-19-2023 End: 10-19-2023 ambulatory [facility] Facility:[facility] Start: 10-19-2023 End: 10-19-2023 Patient encounter procedure Loy Kwon MD Work Phone: Breast Center Comment on above: Malignant neoplasm o f upper-outer quadrant of right breast in female, estrogen receptor positive (HCC) (Primary Dx); Pure hypercholesterolemia; Essential hypertension Start: 10-19-2023 End: 10-19-2023 Subsequent hospital visit by physician Clinic Imaging Mammo [facility] Work Phone: Mammography Comment on above: Malignant neoplasm o f upper-outer quadrant of right breast in female, estrogen receptor positive (HCC) [C50.411, Z17.0] Start: 10-12-2023 Telephone encounter Georgina Crooks RN Mammography Comment on above: Results; Appointment Open End Spinning Operator - O brady (Dr Kwon) Start: 10-04-2023 End: 10-04-2023 ambulatory [facility] Facility:[facility] Start: 10-04-2023 End: 10-04-2023 Subsequent hospital visit by physician Procedure Mammo [facility] Mammography Comment on above: Abnormal mammogram [ R92.8] Start: 09-15-2023 End: 09-15-2023 [facility] Facility:[facility] Start: 09-15-2023 End: 09-15-2023 Office outpatient visit 15 minutes Angélica Pulido APRN.CNS Work Phone: Internal Medicine [place] Comment on above: Rash and nonspecific skin eruption (Primary Dx) Start: 09-05-2023 Telephone encounter Ramandeep galeas MD Work Phone: Internal Medicine [place] Comment on above: Results Start: 09-04-2023 ambulatory Ayo bardales MD Work Phone: Mammography Comment on above: Radio Imaging Study Comments Start: 09-04-2023 Patient encounter procedure Dion Joel MD Work Phone: Mammography Start: 08-29-2023 End: 08-29-2023 ambulatory RAMANDEEP ALVAREZ Facility:[facility] Start: 08-29-2023 End: 08-29-2023 Patient encounter procedure Riley Gregory MD Work Phone: General Surgery Comment on above: Abnormal finding on breast imaging (Primary Dx) Start: 08-29-2023 End: 01-30-2024 Telephone encounter Riley Gregory MD Work Phone: General Surgery Comment on above: Appointment Start: 08-22-2023 End: 08-22-2023 Subsequent hospital visit by physician Diagnostic Mammo [facility] Mammogram Comment on above: Abnormal mammogram o f both breasts [R92.8] Start: 08-08-2023 Telephone encounter Angélica dickerson BANKING TEACHER.STOCK BLENDER Work Phone: Internal Medicine [place] Comment on above: Results Start: 08-04-2023 Telephone encounter Angélica dickerson BANKING TEACHER.STOCK BLENDER Work Phone: Internal Medicine [place] Comment on above: Results Start: 08-02-2023 Telephone encounter Levi starks MD Work Phone: Mammography Comment on above: Mammogram Result Goyo l Back (bilateral diag mamm and us cb per ym) Start: 07-31-2023 Telephone encounter Ramandeep galeas MD Work Phone: Internal Medicine [place] Comment on above: Results Start: 07-30-2023 Orders Only Angélica Pulido APRN.STOCK BLENDER Work Phone: Internal Medicine [place] Comment on above: Abnormal mammogram o f both breasts (Primary Dx) Start: 07-28-2023 Documentation procedure Mammog radha Coordinator [facility] Department Start: 07-28-2023 Letter encounter Mammography Coordinator [facility] Department Start: 07-27-2023 End: 07-27-2023 Subsequent hospital visit by physician Bone Density [facility] Work Phone: Radiology Comment on above: Encounter for screen ing for osteoporosis [Z13.820] Encounter for screen ing mammogram for breast cancer [Z12.31] Start: 07-21-2023 Refill Ramandeep Pickard Work Phone: Internal Medicine [place] Comment on above: Refill Request Start: 07-11-2023 End: 07-11-2023 Office outpatient visit 25 minutes Angélica Pulido APRN.STOCK BLENDER Work Phone: Internal Medicine [place] Comment on [...] Outreach/) Start: 01-06-2023 Telephone encounter Angélica dickerson APRN.STOCK BLENDER Work Phone: Internal Medicine [place] Comment on above: Results Start: 01-05-2023 End: 01-05-2023 Office outpatient visit 25 minutes Angélica Pulido APRN.STOCK BLENDER Work Phone: Internal Medicine [place] Comment on above: Essential hypertensi on (Primary Dx); Post herpetic neuralgia; Diastolic dysfunction; Pain of left hip joint; PHN (postherpetic neuralgia); Gastroesophageal reflux disease, unspecified whether esophagitis present; Encounter for screening mammogram for breast cancer Start: 09-30-2022 Refill Breanna MazariegosMACHINE MAINTENANCE SERVICER Work Phone: Internal Medicine [place] Comment on above: Refill Request Start: 09-30-2022 End: 09-30-2022 Office outpatient visit 25 minutes Angélica Pulido APRN.STOCK BLENDER Work Phone: Internal Medicine [place] Comment on above: Feared condition not demonstrated (Primary Dx); History of shingles; Gastroesophageal reflux disease, unspecified whether esophagitis present; Pure hypercholesterolemia Start: 08-23-2022 Refill Ramandeep Pickard Work Phone: Internal Medicine [place] Comment on above: Refill Request Start: 08-02-2022 End: 08-02-2022 ambulatory Nick Cooper PT Work Phone: [facility] Comment on above: Pain of left hip tiffany nt (Primary Dx) Start: 07-27-2022 End: 07-28-2022 ambulatory Nick Golias PT Work Phone: [facility] Comment on above: Pain of left hip tiffany nt (Primary Dx) Start: 07-19-2022 End: 07-19-2022 ambulatory Nick Golias PT Work Phone: [facility] Comment on above: Chronic left hip gutierrez n; Pain of left hip joint Start: 07-11-2022 Telephone encounter Breanna Ortiz APRN.MACHINE MAINTENANCE SERVICER Work Phone: Internal Medicine [place] Comment on above: Results Start: 07-08-2022 End: 07-08-2022 Subsequent hospital visit by physician Xr [facility] [place] Work Phone: Radiology Comment on above: Chronic left hip gutierrez n [M25.552, G89.29] Start: 07-08-2022 End: 07-08-2022 Patient encounter procedure Breanna Ortiz APRN.CNP Work Phone: Internal Medicine [place] Comment on above: Dermatitis (Primary Dx); Chronic left hip pain Start: 06-07-2022 Refill Ramandeep Pickard Work Phone: Internal Medicine [place] Comment on above: Refill Request Start: 04-14-2022 End: 04-14-2022 Patient encounter procedure Ramandeep Alvarez MD Work Phone: Internal Medicine [place] Comment on above: Essential hypertensi on (Primary Dx); Encounter for immunization; Pure hypercholesterolemia; PHN (postherpetic neuralgia); Chronic venous insufficiency Start: 01-21-2022 Telephone encounter Ramandeep galeas MD Work Phone: Internal Medicine [place] Comment on above: Release Of Medical R ecords Start: 12-22-2021 Telephone encounter Breanna Ortiz APRN.CNP Work Phone: Internal Medicine [place] Comment on above: Results Start: 11-24-2021 Telephone encounter Breanna Ortiz APRN.CNP Work Phone: Family Medicine [place] Comment on above: Hypertension Start: 10-08-2021 Refill Ramandeep Pickard Work Phone: Family [facility] Comment on above: Refill Request Start: 09-30-2021 Telephone encounter Ramandeep galesa MD Work Phone: Internal Medicine [place] Comment on above: Insurance Authorizat ion Start: 07-29-2021 Telephone encounter Ramandeep galeas MD Work Phone: Internal Medicine [place] Comment on above: Results Start: 07-29-2021 End: 07-29-2021 Subsequent hospital visit by physician Stress [facility] Work Phone: Cardiology Lab Comment on above: Encounter for screen ing for cardiovascular disorders [Z13.6] Start: 07-28-2021 Telephone encounter Melisa Gomes RN Cardiology Lab Comment on above: Reminder Call Start: 07-27-2021 Telephone encounter Ramandeep galeas MD Work Phone: Internal Medicine [place] Comment on above: Gle[employer] requesting records Start: 07-12-2021 Telephone encounter Ramandeep galeas MD Work Phone: Internal Medicine [place] Comment on above: Patient Update Start: 07-09-2021 Telephone encounter Carie Worrell APRN.MACHINE MAINTENANCE SERVICER Work Phone: Family Medicine [place] Comment on above: Results Start: 07-09-2021 End: 07-09-2021 Subsequent hospital visit by physician [facility] ([facility]) Work Phone: Cat Scan Comment on above: Back pain, unspecifi ed back location, unspecified back pain laterality, unspecified chronicity [M54.9] Start: 07-08-2021 Telephone encounter Ramandeep galeas MD Work Phone: Internal Medicine [place] Comment on above: Fax requested Start: 07-07-2021 Telephone encounter Breanna Ortiz APRN.MACHINE MAINTENANCE SERVICER Work Phone: Family Medicine [place] Comment on above: Results Start: 07-02-2021 Telephone encounter Ramandeep galeas MD Work Phone: Internal Medicine [place] Comment on above: Patient Request Start: 07-01-2021 Documentation procedure Mammog radha Coordinator [facility] Start: 07-01-2021 Letter encounter Mammography Coordinator [facility] Department Start: 07-01-2021 End: 07-01-2021 Subsequent hospital visit by physician Screen Mammo [facility] Mammogram Comment on above: Breast cancer screen ing by mammogram [Z12.31] Start: 06-18-2021 End: 06-18-2021 Patient encounter procedure Ramandeep Alvarez MD Work Phone: Internal Medicine [place] Comment on above: Medicare annual well ness visit, subsequent (Primary Dx); Hot flashes; Insomnia, unspecified type; Pure hypercholesterolemia; Essential hypertension; Breast cancer screening by mammogram Procedures Date Procedure Procedure Detail Performing Clinician Start: 01-09-2024 [employer] COVI D-19 VACCINE AGE 12+ YR (COMIRNATY) [...] t frankie with image limited Angélica Pulido BANKING TEACHER.STOCK BLENDER Work Phone: Start: 08-22-2023 Digital breast tomosynthesis bilateral Angélica Pulido BANKING TEACHER.STOCK BLENDER Work Phone: Start: 07-11-2023 Adult depression scr eening assessment Loy Kwon MD Work Phone: Start: 07-08-2022 Radex hip unilateral with pelvis 2-3 views Breanna Ortiz BANKING TEACHER.MACHINE MAINTENANCE SERVICER Work Phone: Start: 07-29-2021 Myocardial spect mul tiple studies Ramandeep Alvarez MD Work Phone: Start: 07-09-2021 Ct thorax w/contrast material Breanna Ortiz BANKING TEACHER.MACHINE MAINTENANCE SERVICER Work Phone: Start: 07-01-2021 VALERI SCREENING W ARMANDO Ch briseida Alvarez MD Work Phone: Plan of Treatment Date Care Activity Detail Author Start: 10-15-2031 Urine microalbumin profile DTaP,Tdap,Td Vaccine (2 - Td or Tdap) [facility] Start: 08-23-2027 Diabetes Screening Diabetes Screening [facility] Start: 12-07-2026 Diabetes Screening Diabetes Screening [facility] Start: 07-10-2026 Diabetes Screening Diabetes Screening [facility] Start: 01-05-2026 Diabetes Screening Diabetes Screening [facility] Start: 02-13-2025 End: 02-13-2025 [facility] Comment on above: (SO)BMP(S)* 2ND FLOOR Start: 01-03-2025 End: 01-03-2025 ambulatory 01/03/2025 11:00 AM EDT Visit (SP) Office Hematology/Oncology [address] [place] [address] Susan Carrero APRN.MACHINE MAINTENANCE SERVICER [address] [place] [address] 6 MO OV* Hematology/Oncolog y Comment on above: 6 MO OV* Start: 12-21-2024 DIABETES SCREEN DIABETES SCREEN [facility] Start: 11-21-2024 End: 11-21-2024 [facility] Comment on above: (SO)BMP(S)* 2ND FLOOR Start: 11-07-2024 End: 11-07-2024 ambulatory [facility] Comment on above: BMP 2ND FLOOR Start: 08-22-2024 End: 08-22-2024 ambulatory [facility] Comment on above: BMP 2ND FLOOR (SO)BMP(S)* Start: 07-10-2024 Depression Screening Depression Screening [facility] Start: 07-09-2024 Covid-19 Vaccine ( season) Covid-19 Vaccine ( season) [facility] Start: 07-09-2024 End: 07-09-2024 Patient encounter procedure 07/09/2024 9:40 AM EDT Office Visit Internal Medicine [place] [address] [place] [address] Ramandeep Alvarez MD [address] [place] [address] 6 month follow up Internal Medicine [place] Comment on above: 6 month follow up Start: 07-04-2024 End: 07-04-2024 Patient encounter procedure 07/04/2024 11:10 AM EDT Appointment Mammogram [address] [place] [address] VALERI SCREENING W ARMANDO Mammogram Comment on above: VALERI SCREENING W ARMANDO Start: 07-04-2024 End: 07-04-2024 ambulatory 07/04/2024 10:00 AM EDT Visit (SP) Office Hematology/Oncology [address] [place] [address] Susan Carrero APRN.MACHINE MAINTENANCE SERVICER [address] [place] [address] 6MO OV/scp* Hematology/Oncolog y Comment on above: 6MO OV/scp* Start: 06-25-2024 End: 09-24-2024 Lipid 1996 panel - Serum or Plasma LIPID PANEL, FASTING Lab Routine Pure hypercholesterolemia Expected: 06/25/2024, Expires: 09/24/2024 [facility] Work Phone: Comment on above: Expected: 06/25/2024, Expires: Start: 04-04-2024 End: 04-04-2024 Patient encounter procedure 04/04/2024 12:30 PM EST Office Visit Breast Center [address] [place] [address] [place] [address] [place] [address] FOLLOW UP - STAFF MESSAGE [facility] Comment on above: FOLLOW UP - STAFF MESSAGE Start: 03-27-2024 Advance Directive Discussion Advance Directive Discussion [facility] Start: 03-27-2024 Medicare Advantage Annual Wellness Visit Medicare Advantage Annual Wellness Visit [facility] Start: 01-09-2024 End: 01-09-2024 Patient encounter procedure 01/09/2024 10:00 AM EDT Office Visit Internal Medicine [place] [address] [place] [address] Ramandeep Alvarez MD [address] [place] [address] Yearly Exam Internal Medicine [place] Comment on above: Yearly Exam Start: 01-03-2024 End: 01-03-2024 Patient encounter procedure 01/03/2024 1:30 PM EDT Office Visit Radiation Oncology [address] [place] [address] Jillian Delgado MD [address] [place] [address] follow-up consult r/s from 12/27 Radiation Oncology Comment on above: follow-up consult r/s from 12/27 Start: 01-02-2024 End: 01-02-2024 ambulatory 01/02/2024 9:10 AM EDT Visit (SP) Office Hematology/Oncology [address] [place] [address] Laney Ignacio DO [address] [place] [address] 1 MO OV* Hematology/Oncolog y Comment on above: 1 MO OV* Start: 12-29-2023 End: 12-29-2023 ambulatory 12/29/2023 9:50 AM EDT Visit (SP) Office Hematology/Oncology [address] [place] [address] Laney Ignacio DO [address] [place] [address] 1 MO OV* Hematology/Oncolog y Comment on above: 1 MO OV* Start: 12-28-2023 End: 12-28-2023 Patient encounter procedure 12/28/2023 9:30 AM EDT Office Visit Radiation Oncology [address] [place] [address] Jillian Delgado MD [address] [place] [address] follow-up consult Radiation Oncology Comment on above: follow-up consult Start: 12-27-2023 End: 12-27-2023 Patient encounter procedure 12/27/2023 10:00 AM EDT Office Visit [facility] [address] [place], [place] [id number] [place] [address] [place] [address] post op Breast Center Comment on above: post op Start: 12-26-2023 End: 12-26-2023 Patient encounter procedure 12/26/2023 10:00 AM EDT Education Nutrition Therapy [address] [place] [address] Jeff Velasquez, VERONICA [address] [place] [address] Nutrition consult Nutrition Therapy Comment on above: Nutrition consult Start: 12-21-2023 End: 12-21-2023 Patient encounter procedure 12/21/2023 9:00 AM EDT Office Visit Radiation Oncology [address] [place] [address] Jillian Delgado MD [address] [place] [address] follow-up consult Radiation Oncology Comment on above: follow-up consult Start: 12-19-2023 End: 12-19-2023 ambulatory 12/19/2023 4:00 PM EDT Visit (SP) Office Hematology/Oncology [address] [place] [address] Laney Ignacio DO [address] [place] [address] 1 MO OV* Hematology/Oncolog y Comment on above: 1 MO OV* Start: 12-19-2023 End: 12-19-2023 Patient encounter procedure 12/19/2023 2:30 PM EDT Education Nutrition Therapy [address] [place] [address] [place] [address] Nutrition consult Nutrition Therapy Comment on above: Nutrition consult Start: 12-18-2023 End: 12-18-2023 Admission to same day surgery center Ambulatory Surgery Comment on above: MASTECTOMY SIMPLE Start: 12-18-2023 End: 12-18-2023 Bx/exc lymph node open deep axillary node [facility] Start: 12-18-2023 End: 12-18-2023 Exc breast les preop plmt rad marker open 1 les [facility] Start: 12-18-2023 End: 12-18-2023 Intraop sentinel lymph node id w/dye injection [facility] Start: 12-18-2023 End: 12-18-2023 Mastectomy simple complete [facility] Start: 12-18-2023 Subsequent hospital visit by [...] 10:30 AM EDT Office Visit Cardiology [address] [place] [address] ECHO Cardiology Comment on above: ECHO Start: 12-13-2023 End: 12-13-2023 Nursing evaluation of patient and report Breast Center Comment on above: preop teaching preop teaching Start: 12-13-2023 End: 12-13-2023 Patient encounter procedure Mammography Comment on above: jazmyn jazmyn Start: 12-08-2023 End: 12-08-2023 Anesthesia consultation 12/08/2023 1:40 PM EDT PAT Pre Anesthesia [address] [place] [address] 1, Pacc [place] [address] [place] [address] preop Pre Anesthesia Comment on above: preop Start: 11-26-2023 Covid-19 Vaccine () Covid-19 Vaccine () [facility] Start: 11-26-2023 Covid-19 Vaccine () Covid-19 Vaccine () [facility] Start: 11-26-2023 Influenza vaccination Influenza Vaccine (#1) [facility] Start: 11-23-2023 Subsequent hospital visit by physician 11/23/2023 11:00 AM EDT Hospital Encounter [facility] [address] [place], [place] [id number] Canceled (CC cx: Patient Accepted Sooner Appointment) [facility] Comment on above: Canceled (CC cx: Patient Accepted Sooner Appointment) Start: 11-20-2023 End: 11-20-2023 Patient encounter procedure 11/20/2023 1:20 PM EDT Appointment MRI A10 [address] [address] Left Breast MRI Bx per email MRI A10 Comment on above: Left Breast MRI Bx per email Start: 11-20-2023 Subsequent hospital visit by physician 11/20/2023 1:20 PM EDT Hospital Encounter MRI A10 [address] [address] Abnormal MRI, breast [R92.8] MRI A10 Comment on above: Abnormal MRI, breast [R92.8] Start: 11-08-2023 End: 11-08-2023 ambulatory 11/08/2023 3:00 PM EDT Visit (SP) Office Hematology/Oncology [address], [place] [id number] Laney Ignacio DO [address] [place], [place] [id number] MIDDLEWARE DEVELOPER/BREAST/REF PROV DR KWON* Hematology/Oncolog y Comment on above: MIDDLEWARE DEVELOPER/BREAST/REF PROV DR KWON* Start: 11-08-2023 End: 02-07-2024 Ferritin [Mass/volume] in Serum or Plasma [facility] Comment on above: Expected: 11/08/2023, Expires: Start: 11-08-2023 End: 02-07-2024 Iron and Iron binding capacity panel - Serum or Plasma [facility] Work Phone: Comment on above: Expected: 11/08/2023, Expires: Start: 11-08-2023 End: 11-08-2023 Patient encounter procedure 11/08/2023 1:30 PM EDT Office Visit Radiation Oncology [address] [place] [address] Jillian Delgado MD [address] [facility] [place] [address] BREAST CONSULT Radiation Oncology Comment on above: BREAST CONSULT Start: 11-06-2023 End: 11-06-2023 Patient encounter procedure 11/06/2023 8:30 AM EDT Appointment Mammography [address] [place] [address] LEFT BREAST ULTRASOUND GUIDED CORE BIPOPSY....MRI CLIP PLACEMENT Mammography Comment on above: LEFT BREAST ULTRASOUND GUIDED CORE BIPOP SY....MRI CLIP PLACEMENT Start: 10-27-2023 End: 10-27-2023 Patient encounter procedure 10/27/2023 2:15 PM EDT Appointment Mammography [address] [place] [address] 2nd look n 8/2 at 2:15 at Mammography Comment on above: 2nd look n 8/2 at 2:15 at Start: 10-21-2023 End: 10-21-2023 Patient encounter procedure 10/21/2023 9:40 AM EDT Appointment [facility] [address] [place] [address] Right breast, anterior, calcifications, stereotactic-guided core biopsy, with tophat clip placement (A): [facility] Comment on above: Right breast, anterior, calcifications, stereotactic-guided core biopsy, with tophat clip placement (A): Start: 10-19-2023 End: 10-19-2023 Patient encounter procedure 10/19/2023 11:45 AM EDT Office Visit Breast Center [address] [place] [address] [place] [address] [place] [address] [facility] Breast Center Comment on above: [facility] Start: 10-04-2023 End: 10-04-2023 Patient encounter procedure Mammography Comment on above: RIGHT BREAST ULTRASOUND GUIDED CORE BIOP SY SITE1 RIGHT BREAST ULTRASO UND GUIDED CORE BIOPSY SITE 2 Start: 09-13-2023 End: 09-13-2023 Patient encounter procedure 09/13/2023 1:15 PM EDT Office Visit General Surgery [address] [place], [place] [address] Mary Carreon MD [address] [place] [id number] breast consult General Surgery Comment on above: [...] deficiency anemia type Expected: 08/08/2023, Expires: 11/07/2023 [facility] Work Phone: Comment on above: Expected: 08/08/2023, Expires: Start: 07-27-2023 End: 07-27-2023 Patient encounter procedure Radiology Comment on above: Encounter for screening for osteoporosis [Z13.820] Encounter for screen ing mammogram for breast cancer [Z12.31] Start: 07-11-2023 End: 10-10-2023 25-hydroxyvitamin D3 [Mass/volume] in Serum or Plasma [facility] Work Phone: Comment on above: Expected: 07/11/2023, Expires: 4 Start: 07-11-2023 End: 10-10-2023 Hemoglobin A1c in Blood [facility] Work Phone: Comment on above: Expected: 07/11/2023, Expires: 4 Start: 04-20-2023 Covid-19 Vaccine () Covid-19 Vaccine () [facility] Start: 04-20-2023 Covid-19 Vaccine ( season) Covid-19 Vaccine ( season) [facility] Start: 04-14-2023 Urine microalbumin profile DTAP,TDAP,TD (1 - Tdap) [facility] Comment on above: Postponed from 2012 (Declined at t his time) Start: 12-31-2022 End: 03-02-2023 Comprehensive metabolic 2000 panel - Serum or Plasma COMP METABOLIC PANEL Lab Routine Gastroesophageal reflux disease, unspecified whether esophagitis present Pure hypercholesterolemia Expected: 12/31/2022 (Approximate), Expires: 03/02/2023 [facility] Work Phone: Comment on above: Expected: 12/31/2022 (Approximate), Expi res: 03/02/2023 Start: 12-31-2022 End: 03-02-2023 Lipid 1996 panel - Serum or Plasma LIPID PANEL BASIC Lab Routine Pure hypercholesterolemia Expected: 12/31/2022 (Approximate), Expires: 03/02/2023 [facility] Work Phone: Comment on above: Expected: 12/31/2022 (Approximate), Expi res: 03/02/2023 Start: 12-11-2022 DIABETES SCREEN DIABETES SCREEN [facility] Start: 11-25-2022 Influenza vaccination INFLUENZA (#1) [facility] Start: 09-30-2022 End: 11-30-2022 CBC W Auto Differential panel - Blood CBC + DIFF Lab Routine Gastroesophageal reflux disease, unspecified whether esophagitis present Expected: 09/30/2022 (Approximate), Expires: 11/30/2022 [facility] Work Phone: Comment on above: Expected: 09/30/2022 (Approximate), Expi res: 11/30/2022 Start: 03-27-2022 ADVANCE DIRECTIVE DISCUSSION ADVANCE DIRECTIVE DISCUSSION [facility] Start: 03-27-2022 DEPRESSION ASSESSMENT DEPRESSION ASSESSMENT [facility] Start: 12-19-2021 End: 02-18-2022 CBC W Auto Differential panel - Blood CBC + DIFF Lab Routine Essential hypertension Expected: 12/19/2021, Expires: 02/18/2022 [facility] Work Phone: Comment on above: Expected: 12/19/2021, Expires: 2 Start: 12-19-2021 End: 02-18-2022 Comprehensive metabolic 2000 panel - Serum or Plasma COMP METABOLIC PANEL Lab Routine Pure hypercholesterolemia Expected: 12/19/2021, Expires: 02/18/2022 [facility] Work Phone: Comment on above: Expected: 12/19/2021, Expires: 2 Start: 12-19-2021 End: 02-18-2022 LIPID PANEL BASIC LIPID PANEL BASIC Lab Routine Pure hypercholesterolemia Expected: 12/19/2021, Expires: 02/18/2022 [facility] Work Phone: Comment on above: Expected: 12/19/2021, Expires: 2 Start: 11-25-2021 Influenza vaccination INFLUENZA (#1) [facility] Start: 07-12-2021 End: 11-11-2021 SARS-CoV-2 (COVID-19) RNA [Presence] in Respiratory specimen by RENAN with probe detection INTERMEDIATE RAPID COVID Microbiology Routine Encounter for screening for cardiovascular disorders Expected: 07/12/2021, Expires: 11/11/2021 [facility] Work Phone: Comment on above: Expected: 07/12/2021, Expires: 2 Start: 07-08-2021 End: 09-07-2021 CREATININE BLD CREATININE BLD Lab Routine Back pain, unspecified back location, unspecified back pain laterality, unspecified chronicity Chest pain, unspecified type Elevated d-dimer Expected: 07/08/2021, Expires: 09/07/2021 [facility] Work Phone: Comment on above: Expected: 07/08/2021, Expires: 2 Start: 07-02-2021 End: 09-01-2021 Fibrin D-dimer FEU [Mass/volume] in Platelet poor plasma D-DIMER Lab Routine Leg swelling Expected: 07/02/2021, Expires: 09/01/2021 [facility] Work Phone: Comment on above: Expected: 07/02/2021, Expires: Start: 06-09-2021 COVID-19 VACCINE (4 - Booster for Pfizer series) COVID-19 VACCINE (4 - Booster for Pfizer series) [facility] Start: 04-06-2021 COVID-19 VACCINE (4 - Booster for Pfizer series) COVID-19 VACCINE (4 - Booster for Pfizer series) [facility] Start: 10-27-2020 COVID-19 VACCINE (3 - Booster for Pfizer series) COVID-19 VACCINE (3 - Booster for Pfizer series) [facility] Start: 2012 Urine microalbumin profile DTAP,TDAP,TD (1 - Tdap) [facility] Start: 1997 RSV Vaccine (1 - 1-dose 60+ series) RSV Vaccine (1 - 1-dose 60+ series) [facility] End: 08-09-2024 BD DXA TRABECULAR BONE SCORE (TBS) BD DXA TRABECULAR BONE SCORE (TBS) Radiology Routine Encounter for screening for osteoporosis Asymptomatic postmenopausal status 1 Occurrences starting 07/11/2023 until 08/09/2024 [facility] Work Phone: Comment on above: 1 Occurrences starting 07/11/2023 until 08/09/2024 BD DXA TRABECULAR JASPER NE SCORE (TBS) BD DXA TRABECULAR BONE SCORE (TBS) Radiology Routine Encounter for screening for osteoporosis Asymptomatic postmenopausal status 07/27/2023 12:43 PM EDT [facility] Bx/exc lymph node op en deep axillary node BIOPSY NODE AXILLARY Malignant neoplasm of upper-outer quadrant of right breast in female, estrogen receptor positive (HCC) Atypical lobular hyperplasia (ALH) of left breast [facility] End: 08-07-2022 Ct thorax w/contrast material CT CHEST W IVCON PE Radiology STAT Back pain, unspecified back location, unspecified back pain laterality, unspecified chronicity Chest pain, unspecified type Elevated d-dimer 1 Occurrences starting 07/08/2021 until 08/07/2022 [facility] Work Phone: Comment on above: 1 Occurrences starting 07/08/2021 until 08/07/2022 DBT Breast - bilater al screening VALERI SCREENING W ARMANDO Radiology Routine Atypical lobular hyperplasia (ALH) of left breast 07/04/2024 11:09 AM EDT [facility] Work Phone: End: 08-09-2024 DXA Skeletal system.axial Views for bone density DXA-AXIAL SKELETON Radiology Routine Encounter for screening for osteoporosis Asymptomatic postmenopausal status 1 Occurrences starting 07/11/2023 until 08/09/2024 [facility] Work Phone: Comment on above: 1 Occurrences starting 07/11/2023 until 08/09/2024 DXA Skeletal system.axial Views for bone density DXA-AXIAL SKELETON Radiology Routine Encounter for screening for osteoporosis Asymptomatic postmenopausal status 07/27/2023 12:43 PM EDT [facility] Work Phone: End: 12-07-2024 ECG COMPLETE ECG COMPLETE ECG Routine Pre-operative examination 1 Occurrences starting 12/08/2023 until 12/07/2024 [facility] Work Phone: Comment on above: 1 Occurrences starting 12/08/2023 until 12/07/2024 End: 12-07-2024 Echocardiography ECHO Cardiology Routine Pre-operative examination 1 Occurrences starting 12/08/2023 until 12/07/2024 [facility] Comment on above: 1 Occurrences starting 12/08/2023 until 12/07/2024 Exc breast les preop plmt rad marker open 1 les EXCISION BREAST LESION IDENTIFIED BY PREOPERATIVE PLACEMENT RADIOLOGICAL MARKER, OPEN, SINGLE LESION Malignant neoplasm of upper-outer quadrant of right breast in female, estrogen receptor positive (HCC) Atypical lobular hyperplasia (ALH) of left breast [facility] Intraop sentinel lym ph node id w/dye injection INTRAOPERATIVE ID OF SENTINEL LYMPH NODE(S) INCL'D INJECTION OF NON-RAD DYE WHEN PERFORMED Malignant neoplasm of upper-outer quadrant of right breast in female, estrogen receptor positive (HCC) Atypical lobular hyperplasia (ALH) of left breast [facility] End: 02-04-2024 VALERI SCREENING VALERI SCREENING Radiology Routine Encounter for screening mammogram for breast cancer 1 Occurrences starting 01/05/2023 until 02/04/2024 [facility] Work Phone: Comment on above: 1 Occurrences starting 01/05/2023 until 02/04/2024 End: 07-18-2022 VALERI SCREENING W ARMANDO VALERI SCREENING W ARMANDO Radiology Routine Breast cancer screening by mammogram 1 Occurrences starting 06/18/2021 until 07/18/2022 [facility] Work Phone: Comment on above: 1 Occurrences starting 06/18/2021 until 07/18/2022 End: 02-04-2024 VALERI SCREENING W ARMANDO VALERI SCREENING W ARMANDO Radiology Routine Encounter for screening mammogram for breast cancer 1 Occurrences starting 01/05/2023 until 02/04/2024 [facility] Work Phone: Comment on above: 1 Occurrences starting 01/05/2023 until 02/04/2024 Mastectomy simple complete MASTECTOMY SIMPLE Malignant neoplasm of upper-outer quadrant of right breast in female, estrogen receptor positive (HCC) Atypical lobular hyperplasia (ALH) of left breast [facility] End: 08-28-2024 MG Breast - bilateral Diagnostic VALERI DIAGNOSTIC BILATERAL Radiology Routine Abnormal mammogram of both breasts 1 Occurrences starting 07/30/2023 until 08/28/2024 [facility] Work Phone: Comment on above: 1 Occurrences starting 07/30/2023 until 08/28/2024 MG Breast Screening VALERI SCREENIN G Radiology Routine Encounter for screening mammogram for breast cancer 07/27/2023 1:17 PM EDT [facility] Work Phone: End: 12-22-2024 MG Guidance for needle localization of Breast - left VALERI NDL LOC W VALERI GD LEFT Radiology Routine Abnormal finding on breast imaging 1 Occurrences starting 11/23/2023 until 12/22/2024 [facility] Work Phone: Comment on above: 1 Occurrences starting 11/23/2023 until 12/22/2024 End: 09-27-2024 MG stereo Guidance for biopsy of Breast - right VALERI STEREO BX BREAST RIGHT Radiology Routine Abnormal finding on breast imaging 1 Occurrences starting 08/29/2023 until 09/27/2024 [facility] Work Phone: Comment on above: 1 Occurrences starting 08/29/2023 until 09/27/2024 End: 10-03-2024 MG stereo Guidance for biopsy of Breast - right VALERI STEREO BX BREAST RIGHT Radiology Routine Abnormal mammogram 1 Occurrences starting 09/04/2023 until 10/03/2024 [facility] Work Phone: Comment on above: 1 Occurrences starting 09/04/2023 until 10/03/2024 End: 11-10-2024 MR Breast - bilateral WO and W contrast IV MRI BREAST WO/W IVCON BILATERAL Radiology Routine Malignant neoplasm of upper-outer quadrant of right breast in female, estrogen receptor positive (HCC) 1 Occurrences starting 10/12/2023 until 11/10/2024 [facility] Work Phone: Comment on above: 1 Occurrences starting 10/12/2023 until 11/10/2024 MR Breast - bilatera l WO and W contrast IV MRI BREAST WO/W IVCON BILATERAL Radiology Routine Malignant neoplasm of upper-outer quadrant of right breast in female, estrogen receptor positive (HCC) 10/21/2023 10:46 AM EDT [facility] Work Phone: End: 12-06-2024 MR Breast - left WO and W contrast IV MRI BREAST BX WO/W IVCON LEFT Radiology Routine Abnormal MRI, breast 1 Occurrences starting 11/07/2023 until 12/06/2024 [facility] Work Phone: Comment on above: 1 Occurrences starting 11/07/2023 until 12/06/2024 End: 11-10-2024 MRI BREAST 3D POST PROCESSING MRI BREAST 3D POST PROCESSING Radiology Routine Malignant neoplasm of upper-outer quadrant of right breast in female, estrogen receptor positive (HCC) 1 Occurrences starting 10/12/2023 until 11/10/2024 [facility] Comment on above: 1 Occurrences starting 10/12/2023 until 11/10/2024 MRI BREAST 3D POST PROCESSING MRI BREAST 3D POST PROCESSING Radiology Routine Malignant neoplasm of upper-outer quadrant of right breast in female, estrogen receptor positive (HCC) 10/21/2023 10:46 AM EDT [facility] End: 08-11-2022 NM CARDIAC PERF STRESS/EXERCISE NM CARDIAC PERF STRESS/EXERCISE Radiology Routine Encounter for screening for cardiovascular disorders 1 Occurrences starting 07/12/2021 until 08/11/2022 [facility] Work Phone: Comment on above: 1 Occurrences starting 07/12/2021 until 08/11/2022 [place] COVI D-19 BIVALENT BOOSTER VACCINE, AGE 12+ YR [place] COVID-19 BIVALENT BOOSTER VACCINE, AGE 12+ YR Immunization/Injection Routine Encounter for immunization Ordered: 04/14/2022 [facility] Work Phone: Comment on above: Ordered: 04/14/2022 PT PLAN OF CARE CERTIFICATION PT PLAN OF CARE CERTIFICATION Procedures Routine Chronic left hip pain Pain of left hip joint Ordered: 07/19/2022 [facility] Work Phone: Comment on above: Ordered: 07/19/2022 SURGICAL PATHOLOGY [facility] Work Phone: Comment on above: Release Upon Ordering for 1 Occurrences starting 10/04/2023, 1 completed SURGICAL PATHOLOGY [facility] Work Phone: Comment on above: Release Upon Ordering for 1 Occurrences starting 11/06/2023, 1 completed SURGICAL PATHOLOGY [facility] Work Phone: Comment on above: Release Upon Ordering for 1 Occurrences starting 11/20/2023, 1 completed SURGICAL PATHOLOGY [facility] Work Phone: Comment on above: Release Upon Ordering for 1 Occurrences starting 12/18/2023, 1 completed End: 08-28-2024 US Breast - left limited US BREAST LTD LEFT Radiology Routine Abnormal mammogram of both breasts 1 Occurrences starting 07/30/2023 until 08/28/2024 [facility] Comment on above: 1 Occurrences starting 07/30/2023 until 08/28/2024 End: 11-21-2024 US Breast - left limited US BREAST LTD LEFT Radiology Routine Breast disorder 1 Occurrences starting 10/23/2023 until 11/21/2024 [facility] Work Phone: Comment on above: 1 Occurrences starting 10/23/2023 until 11/21/2024 End: 08-28-2024 US Breast - right limited US BREAST LTD RIGHT Radiology Routine Abnormal mammogram of both breasts 1 Occurrences starting 07/30/2023 until 08/28/2024 [facility] Comment on above: 1 Occurrences starting 07/30/2023 until 08/28/2024 [facility] Immunizations Immunization Date Immunization Notes Care Provider Piotr godinez 01-09-2024 COVID-19 vaccine, ag e 12+ yr (PFIZER-BIONTECH COMIRNATY) Ramandeep Alvarez MD Work Phone: [facility] 01-09-2024 influenza, high dose seasonal, preservative-free Ramandeep Alvarez MD Work Phone: [facility] 01-20-2023 respiratory syncytia l virus (RSV) vaccine, bivalent (ABRYSVO) Ramandeep Alvarez MD Work Phone: [facility] 12-19-2022 COVID-19 vaccine, ag e 12+ yr, season (MODERNA) Angélica Pulido BANKING TEACHER.STOCK BLENDER Work Phone: [facility] Work Phone: 12-19-2022 COVID-19 vaccine, ag e 12+ yr, season (PFIZER-BIONTECH) Angélica Pulido BANKING TEACHER.STOCK BLENDER Work Phone: [facility] Work Phone: 12-19-2022 influenza (aIIV4) vaccine, age 65+ yr, quadrivalent, PF (FLUAD QUAD) Angélica Pulido BANKING TEACHER.STOCK BLENDER Work Phone: [facility] 12-19-2022 influenza virus vaccine, unspecified formulation Procedure Beac [facility] 05-04-2022 COVID-19 booster vaccine, age 12+ yr, bivalent (PFIZER-BIONTECH) Ramandeep Alvarez MD Work Phone: [facility] 05-04-2022 COVID-19 vaccine, ag e 12+ yr, bivalent (MODERNA) Angélica Pulido BANKING TEACHER.STOCK BLENDER Work Phone: [facility] Work Phone: 12-21-2021 influenza, high-dose , quadrivalent vaccine (FLUZONE HIGH DOSE QUADRIVALENT) Breanna Ortiz BANKING TEACHER.MACHINE MAINTENANCE SERVICER Work Phone: [facility] Work Phone: 10-14-2021 tetanus toxoid, redu mary diphtheria toxoid, and acellular pertussis vaccine, adsorbed Angélica Pulido BANKING TEACHER.STOCK BLENDER Work Phone: [facility] Work Phone: 06-26-2021 pneumococcal polysaccharide vaccine, 23 valent Screen Wstr [facility] 12-11-2020 influenza (aIIV4) vaccine, age 65+ yr, quadrivalent, PF (FLUAD QUAD) Angélica Pulido BANKING TEACHER.STOCK BLENDER Work Phone: [facility] Work Phone: 05-27-2020 COVID-19 vaccine, ag e 12+ yr (PFIZER-BIONTECH - PURPLE TOP) Ramandeep Alvarez MD Work Phone: [facility] Work Phone: 05-06-2020 COVID-19 vaccine, ag e 12+ yr (PFIZER-BIONTECH - PURPLE TOP) Ramandeep Alvarez MD Work Phone: [facility] Work Phone: 11-12-2019 influenza, injectabl e, quadrivalent, preservative free Angélica Pulido BANKING TEACHER.STOCK BLENDER Work Phone: [facility] Work Phone: 09-05-2019 zoster vaccine recombinant Ramandeep Alvarez MD Work Phone: [facility] 07-04-2019 zoster vaccine recombinant Ramandeep Alvarez MD Work Phone: [facility] 12-24-2018 influenza, high dose seasonal, preservative-free Ramandeep Alvarez MD Work Phone: [facility] Work Phone: 12-27-2017 influenza, high dose seasonal, preservative-free Ramandeep Alvarez MD Work Phone: [facility] Work Phone: 01-18-2017 influenza, high dose seasonal, preservative-free Ramandeep Alvarez MD Work Phone: [facility] Work Phone: 07-03-2015 pneumococcal conjuga te vaccine, 13 valent Ramandeep Alvarez MD Work Phone: [facility] 11-02-2012 tetanus and diphther ia toxoids, adsorbed, preservative free, for adult use (2 Lf of tetanus toxoid and 2 Lf of diphtheria toxoid) Ramadneep Alvarez MD Work Phone: [facility] Work Phone: 11-26-2011 influenza virus vaccine, unspecified formulation Ramandeep Alvarez MD Work Phone: [facility] 01-25-2011 influenza virus vaccine, unspecified formulation Ramandeep Alvarez MD Work Phone: [facility] 01-05-2010 influenza virus vaccine, unspecified formulation Ramandeep Alvarez MD Work Phone: [facility] 04-27-2009 zoster vaccine, live Ramandeep Alvarez MD Work Phone: [facility] 12-29-2006 influenza virus vaccine, unspecified formulation Ramandeep Alvarez MD Work Phone: [facility] Work Phone: 05-26-2003 pneumococcal polysaccharide vaccine, 23 valent Ramandeep Alvarez MD Work Phone: [facility] Work Phone: 03-27-2002 tetanus and diphther ia toxoids, adsorbed, preservative free, for adult use (2 Lf of tetanus toxoid and 2 Lf of diphtheria toxoid) Ramandeep Alvarez MD Work Phone: [facility] Work Phone: NEGATED: Highlighted row has not occurred!04-14-2022 COVID-19 booster vaccine, age 12+ yr, bivalent ([place]) Ramandeep Alvarez MD Work Phone: [facility] Work Phone: Comment on above: Deferred: OTHER NEGATED: Highlighted row has not occurred!12-21-2021 tetanus toxoid, reduced diphtheria toxoid, and acellular pertussis vaccine, adsorbed Breanna Ortiz APRN.CNP Work Phone: [facility] Work Phone: Comment on above: Deferred: OTHER Payers Date Payer Category Payer Medicare (Managed Care) [employer] O [id number] 2017 Unknown LESLIDORITA SHAHEED [facility] S AND BLUE [facility] [id number] 2017-Present [phone] [address] [id number] 2017 Unknown [id number] 2017 Medicare [id number] Social History Date Type Detail Facility Start: 01-25-2011 End: 11-30-2021 Tobacco smoking status NHIS Never smoked tobacco [facility] Work Phone: Start: 06-18-2021 End: 11-08-2023 Alcohol intake Current drinker of alcohol (finding) [facility] Start: 06-27-2017 History SDOH Alcohol Comment occasionally [facility] Start: 1935 Sex Assigned At Not on file [facility] Start: 06-08-2021 End: 12-21-2021 Exposure to SARS-CoV-2 (event) Not sure [facility] Work Phone: Start: 01-25-2011 End: 11-30-2021 Tobacco use and exposure Smokeless tobacco non-user [facility] Start: 07-27-2022 End: 01-05-2023 History of Social function [facility] Work Phone: Start: 07-27-2022 End: 01-05-2023 Tobacco use panel [facility] Work Phone: Adult Depression Screening Assessment 0 [facility] Work Phone: Start: 11-08-2023 Alcohol Comment occasionally wine [facility] Medical Equipment Procedure Code Equipment Code Equipment Origin al Text Equipment Identifier Dates Stereo Breast Clip [id number] Start : 10-04-2023 Comment on above: Description: Buckle clip Stereo Breast Clip [id number] Start : 10-04-2023 Comment on above: Description: Tophat clip Ultrasound Breas t Clip [id number] Start: 11-06-2023 Comment on above: Description: Q Hourglass [id number] Start: 11-20-2023 Ultrasound Localization [id number] Start: 12-13-2023 Comment on above: Description: Jazmyn Functional Status Date Assessment Result Facility 06-27-2014 Are you deaf, or do you have serious difficulty hearing No 06/27/2014 10:35 AM Geetha Montaño Ma No [facility] 06-27-2014 Are you blind, or do you have serious difficulty seeing, even when wearing glasses No 06/27/2014 10:35 AM Geetha Montaño Ma No [facility] 06-27-2014 Do you have serious difficulty walking or climbing stairs No 06/27/2014 10:35 AM Geetha Montaño Ma [facility] 06-27-2014 Do you have difficul ty dressing or bathing No 06/27/2014 10:35 AM Geetha Montaño Ma [facility] 06-27-2014 Because of a physica l, mental, or emotional condition, do you have difficulty doing errands alone such as visiting a physician's office or shopping No 06/27/2014 10:35 AM Geetha Montaño Ma [facility] Mental Status Date Assessment Result Facility 06-27-2014 Because of a physica l, mental, or emotional condition, do you have serious difficulty concentrating, remembering, or making decisions No 06/27/2014 10:35 AM EDT Guy Pepper Geetha Alix [facility] Clinical Notes 06-14-2012 to 08-23-2024 Telephone Encounter [...] Janice Haque August 23, 2024 2:55 PM [facility] 08-23-2024 Miscellaneous Notes Prescription Refill Information The [...] 2024 2:55 PM documented in this encounter [facility] 08-21-2024 Telephone encounter Note Pt noted on [place] 1st time treatment report. Pt is noted on report for Zometa injection, no social work follow up indicated. OSBALDO Rudolph-Franco [facility] 08-21-2024 Miscellaneous Notes Pt noted on [place] 1st time treatment report. Pt is noted on report for Zometa injection, no social work follow up indicated. OSBALDO Rudolph-Franco documented in this encounter [facility] 08-09-2024 Telephone encounter Note Patient called back and scheduled. Chemo start email sent Kimberly Kraus [facility] 08-09-2024 Miscellaneous Notes Patient called back and [...] Jaelyn Evans LPN documented in this encounter [facility] 08-05-2024 Telephone encounter Note I called Alberto and asked her to call us back to schedule the below requested. Lindsay Sweeney Pss [facility] 08-05-2024 Telephone encounter Note Can schedule BMP/Zometa every 3 months beginning within the next few weeks. Laney Ignacio DO [facility] 08-05-2024 Telephone encounter Note Dental clearance form received. Clear from active disease. Scanned into chart. Jaelyn Evans LPN [facility] 07-10-2024 Telephone encounter Note Message relayed to patient [facility] Work Phone: 07-10-2024 Miscellaneous Notes Message relayed to patient Left message for patient to contact office. Melisa Pichardo LPN Please inform pt. that her mammogram looks good. Follow up as scheduled. Susan Carrero APRN.MACHINE MAINTENANCE SERVICER documented in this encounter [facility] 07-08-2024 Telephone encounter Note Left message for patient to contact office. Melisa Pichardo LPN [facility] 07-08-2024 Telephone encounter Note Please inform pt. that her mammogram looks good. Follow up as scheduled. Susan Carrero APRN.CNP [facility] Work Phone: 07-04-2024 History of Present illness [...] PATIENT PRESENTS WITH AN IMPLANTABLE OR ATTACHED ABALONE SHELLER: No RADIOLOGY DEPARTMENT: Mammography PERIPHERAL IV DATA: Not applicable SIGNED BY: Delfina Oliver July 04, 2024 11:07 AM documented in this encounter [facility] 07-04-2024 Note HNO ID: [id number] Author: KOTA ALLAN Mammo Tech Service: ? Author Type: Warp Drawer Type: Progress Notes Filed: 07/04/2024 11:12 Note [...] PATIENT PRESENTS WITH AN IMPLANTABLE OR ATTACHED ABALONE SHELLER: No RADIOLOGY DEPARTMENT: Mammography PERIPHERAL IV DATA: Not applicable SIGNED BY: Delfina Oliver July 04, 2024 11:07 AM [facility] 07-04-2024 Note HNO ID: [id number] Author: SUSAN CARRERO APRN.SANTO Service: ? Author [...] External Control Present and Stained as Expected MI status Positive (greater than or equal to 1%) MI % staining 99 Progesterone Receptor (Staining Intensity) [...] with clip placement 11/19. She lives in [place]. . Has close friend. 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 -Biopsy site changes are identified. -The surrounding breast tissue shows atypical ductal hyperplasia (ADH), fibrocystic changes and microcalcifications. PJM/pjeddie/12/21/23 Diagnosis Comment CCM Select slides have been reviewed in consultation with Dr. Walters, of the [facility] breast pathology department, who concurs. Block for additional Biomarkers/Molecular studies CCM C14 Synoptic Report INVASIVE CARCINOMA OF THE BREAST: Resection 8th Edition - Protocol posted: 09/13/2023INVASIVE CARCINOMA OF THE BREAST: RESECTION - B, C SPECIMEN Procedure Total m (more content not included)... [facility] 07-04-2024 History of Present illness Narrative [...] External Control Present and Stained as Expected MI status Positive (greater than or equal to 1%) MI % staining 99 Progesterone Receptor (Staining Intensity) [...] with clip placement 11/19. She lives in [place]. . Has close friend. Fully capable of [...] in consultation with Dr. Walters, of the [facility] breast pathology department, who concurs. Block for additional Biomarkers/Molecular studies CCM C14 Synoptic Report INVASIVE CARCINOMA OF THE BREAST: Resection 8th Edition - Protocol posted: 09/13/2023INVASIVE CARCINOMA OF THE BREAST: RESECTION - B, C SPECIMEN Procedure Total mastectomy Specimen Laterality Right TUMOR Histologic Type Invasive carcinoma with mixed ductal and lobular features Histologic Grade (Oktaha Histologic Score) Glandular (Acinar) / Tubular Differentiation [...] Examined (sentinel and non-sentinel) 1 Number of [place] Nodes Examined 1 pTNM CLASSIFICATION (AJCC 8th [...] Ignacio's previous note: Assessment: -pT1b N0 M0 ER/MI positive, 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 Susan Carrero APRN.MACHINE MAINTENANCE SERVICER documented in this encounter [facility] 06-25-2024 Note Patient Outreach (IN TMMN) ALBERTO RODRIGUEZ ([id number]) 1935 F Date Time Provider Department 06/25/24 RAMANDEEP ALVAREZ During your visit today, we recorded the following information about you: Allergies As of Date: 06/25/2024 Noted Allergy Reaction VICODIN (HYDROCODONE-ACETAMINOPHE*04/27/19 10 5 - Intolerance Date Reviewed: 04/04/2024 Reviewed by: Nuris Alegria RN - Fully Assessed Visit Diagnosis:Pure hypercholesterolemia [E78.00] Order(s):LIPID PANEL, FASTING [SQLIPB] Order #: [id number] FUTURE Prescriptions as of 06/28/2024 - gabapentin [...] IF UNABLE, PLEASE REFER TO CHUNG AT [facility]. DX: EDEMA - multivitamin tablet Take 1 [...] Encounter Status:Closed by ZAINA LAY on 06/28/24 [facility] 04-04-2024 Telephone encounter Note Message left for patient re: mammogram Able to schedule same day as her follow-up with Susan Carerro CNP on 07/04 Kimberly Chavez PA-C April 04, 2024 1:10 PM [facility] Work Phone: 04-04-2024 Miscellaneous Notes Message left for patient re: mammogram Able to schedule same day as her follow-up with Susan Carrero CNP on 07/04 Kimberly Chavez PA-C April 04, 2024 1:10 PM documented in this encounter [facility] 04-04-2024 History of Present illness Narrative REASON FOR TODAY'S VISIT: Last seen December 2023 at her post op visit Returns today for scheduled interval exam and check She notes no breast related complaints today. No SEs from the anastrozole HISTORY: 12/18/23: RIGHT- SM/SLN and left excisional biopsy RIGHT: pT1bNx ER 99 MI 99 Her 2 FISH negative LEFT c/w LCIS December 2023 Initiated anastrozole (Masci) Plan to begin Zometa approx June 2024 REVIEW OF SYSTEMS 14 point ROS is negative except for that which is stated above. EXAMINATION: The sensitive examination was discussed with the Patient or Patient's Authorized Dust Collector Ore Crushing. As applicable, any other physician, advance practice provider, medical student, or other health professional student that will be observing or involved in the sensitive examination for educational or training purposes was discussed with the Patient or Authorized Dust Collector Ore Crushing. The Patient or Authorized Dust Collector Ore Crushing has agreed to proceed with the sensitive [...] site stereo biopsy in September cTmic N0 ER/MI 99 Her2 FISH negative the anterior(RA) biopsy: [facility] MRI prompted biopsy LEFT c/w [facility] 12/18/23: RIGHT- SM/SLN and left excisional biopsy RIGHT: pT1bNx ER 99 MI 99 Her 2 FISH negative LEFT c/w [...] which included preparing to see the patient, [id number] patient care, completing clinical documentation, obtaining and/or reviewing separately obtained history, performing a medically appropriate examination, counseling and educating the patient/family/caregiver, ordering medications, tests, or procedures, communicating with other HCPs (not separately reported), independently interpreting results (not separately reported), communicating results to the patient/family/caregiver, and care coordination (not separately reported). Loy Kwon MD documented in this encounter [facility] 04-04-2024 Note HNO ID: [id number] Author: LOY KWON MD Service: ? Author Type: Physician Type: Progress Notes Filed: 04/04/2024 13:00 Note Text: REASON FOR TODAY'S VISIT: Last seen December 2023 at her post op visit Returns today for scheduled interval exam and check She notes no breast related complaints today. No SEs from the anastrozole HISTORY: 12/18/23: RIGHT- SM/SLN and left excisional biopsy RIGHT: pT1bNx ER 99 MI 99 Her 2 FISH negative LEFT c/w LCIS December 2023 Initiated anastrozole (Masci) Plan to begin Zometa approx June 2024 REVIEW OF SYSTEMS 14 point ROS is negative except for that which is stated above. EXAMINATION: The sensitive examination was discussed with the Patient or Patient's Authorized Dust Collector Ore Crushing. As applicable, any other physician, advance practice provider, medical student, or other health professional student that will be observing or involved in the sensitive examination for educational or training purposes was discussed with the Patient or Authorized Dust Collector Ore Crushing. The Patient or Authorized Dust Collector Ore Crushing has agreed to proceed with the sensitive [...] site stereo biopsy in September cTmic N0 ER/MI 99 Her2 FISH negative the anterior(RA) biopsy: [facility] MRI prompted biopsy LEFT c/w [facility] 12/18/23: RIGHT- SM/SLN and left excisional biopsy RIGHT: pT1bNx ER 99 MI 99 Her 2 FISH negative LEFT c/w [...] which included preparing to see the patient, [id number] patient care, completing clinical documentation, obtaining and/or reviewing separately obtained history, performing a medically appropriate examination, counseling and educating the patient/family/caregiver, ordering medications, tests, or procedures, communicating with other HCPs (not separately reported), independently interpreting results (not separately reported), communicating results to the patient/family/caregiver, and care coordination (not separately reported). Loy Kwon MD [facility] 02-05-2024 Telephone encounter Note Prescription Refill [...] Sun Haque February 05, 2024 1:45 PM [facility] 02-05-2024 Miscellaneous Notes Prescription Refill Information The [...] 2024 1:45 PM documented in this encounter [facility] 01-09-2024 History of Present illness Narrative Images [...] Visit Patient presents with: Yearly Exam Alberto Rodriugez is a 88 year old female who [...] YR, HIGH DOSE, TRIVALENT (FLUZONE HIGH-DOSE) - [place] COVID-19 VACCINE AGE 12+ YR (COMIRNATY) 4. [...] Ramandeep Alvarez MD documented in this encounter [facility] 01-09-2024 Note HNO ID: [id number] Author: RAMANDEEP ALVAREZ MD Service: ? Author [...] for this encounter. (more content not included)... [facility] 01-02-2024 Note HNO ID: [id number] Author: LANEY IGNACIO, DO Service: ? Author [...] External Control Present and Stained as Expected MI status Positive (greater than or equal to 1%) MI % staining 99 Progesterone Receptor (Staining Intensity) [...] with clip placement 11/19. She lives in [place]. . Has close friend. Fully capable of [...] in consultation with Dr. Walters, of the [facility] breast pathology department, who concurs. Block for additional Biomarkers/Molecular studies CCM C14 Synoptic Report INVASIVE CARCINOMA OF THE BREAST: Resection 8th Edition - Protocol posted: 09/13/2023INVASIVE CARCINOMA OF THE ABELINO (more content not included)... [facility] 01-02-2024 History of Present illness Narrative [...] External Control Present and Stained as Expected MI status Positive (greater than or equal to 1%) MI % staining 99 Progesterone Receptor (Staining Intensity) [...] with clip placement 11/19. She lives in [place]. . Has close friend. 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 -Biopsy site changes are identified. -The surrounding breast tissue shows atypical ductal hyperplasia (ADH), fibrocystic changes and microcalcifications. PJM/pjm/12/21/23 Diagnosis Comment CCM Select slides have been reviewed in consultation with Dr. Walters, of the [facility] breast pathology department, who concurs. Block for additional Biomarkers/Molecular studies CCM C14 Synoptic Report INVASIVE CARCINOMA OF THE BREAST: Resection 8th Edition - Protocol posted: 09/13/2023INVASIVE CARCINOMA OF THE BREAST: RESECTION - B, C SPECIMEN Procedure Total mastectomy Specimen Laterality Right TUMOR Histologic Type Invasive carcinoma with mixed ductal and lobular features Histologic Grade (Oktaha Histologic Score) Glandular (Acinar) / Tubular Differentiation [...] Examined (sentinel and non-sentinel) 1 Number of [place] Nodes Examined 1 pTNM CLASSIFICATION (AJCC 8th [...] IF UNABLE, PLEASE REFER TO [facility] AT [facility]. 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 Laney Ignacio DO documented in this encounter [facility] 12-27-2023 History of Present illness Narrative REASON [...] site stereo biopsy in September cTmic N0 ER/MI 99 Her2 FISH negative the anterior(RA) biopsy: [facility] MRI prompted biopsy LEFT c/w [facility] 12/18/23: RIGHT- SM/SLN and left excisional biopsy RIGHT: pT1bNx ER 99 MI 99 Her 2 FISH negative LEFT c/w [...] Loy Kwon MD documented in this encounter [facility] 12-27-2023 Note HNO ID: [id number] Author: LOY KWON MD Service: ? Author [...] site stereo biopsy in September cTmic N0 ER/MI 99 Her2 FISH negative the anterior(RA) biopsy: [facility] MRI prompted biopsy LEFT c/w [facility] 12/18/23: RIGHT- SM/SLN and left excisional biopsy RIGHT: pT1bNx ER 99 MI 99 Her 2 FISH negative LEFT c/w [...] RTC in 3 month(s). Loy Kwon MD [facility] 12-19-2023 Telephone encounter Note Returned call to Alberto Slight pain relieved with medication Drain output last night 40cc So far today 20 cc pale red Denies any redness, or bruising Denies any questions or concerns [facility] 12-19-2023 Miscellaneous Notes Returned call to Alberto Slight pain relieved with medication Drain output last night 40cc So far today 20 cc pale red Denies any redness, or bruising Denies any questions or concerns Post op check in. Left message to return call documented in this encounter [facility] 12-19-2023 Telephone encounter Note Post op check in. Left message to return call [facility] 12-18-2023 Nurse Note Extensive CONOR teaching completed with pt. And friend. Pt. Up to restroom to void with 1 RN assist. Pt. Steady on feet. Pt. Nauseated upon returning to bed. Cold washcloth applied to forehead and will call Dr. Graves for additional alexfrcruz order IV. [facility] 12-18-2023 Nurse Note Extensive CONOR teaching completed with pt. And friend. Pt. Up to restroom to void with 1 RN assist. Pt. Steady on feet. Pt. Nauseated upon returning to bed. Cold washcloth applied to forehead and will call Dr. Graves for additional alexfrcruz order IV. Dr. Kwon at bedside documented in this encounter [facility] 12-18-2023 Note HNO ID: [id number] Author: ANA OLVERA RN Service: ? Author Type: Registered Nurse Type: Nursing Progress Note Filed: 12/18/2023 11:46 Note Text: Dr. Kwon at bedside [facility] 12-18-[address] Kwon at bedside [facility] 12-18-2023 Note Formatting of this n ote might be different from the original. You received 1000 mg tylenol/acetaminophen at 7:30 am. Next dose due at 1:30 pm if needed for pain. The maximum amount of tylenol/acetaminophen that you may take in a 24 hour time period is 9474-4952 mg. Please leave the blue/green arm band on your wrist for the next 96 hours. It alerts all caregivers that you may come in contact with, that you received a local anesthetic medication today called exparel. If you would need to receive any further local anesthetic in the next 4 days, health direct care professional would need to administer any further local anesthetic medication to you with extreme caution. Please be aware that your urine may blue to green in color for the next 1-2 days from the dye injection that you received. [facility] 12-18-2023 Miscellaneous Notes You received 1000 mg tylenol/acetaminophen at 7:30 am. Next dose due at 1:30 pm if needed for pain. The maximum amount of tylenol/acetaminophen that you may take in a 24 hour time period is 8988-4403 mg. Please leave the blue/green arm band on your wrist for the next 96 hours. It alerts all caregivers that you may come in contact with, that you received a local anesthetic medication today called exparel. If you would need to receive any further local anesthetic in the next 4 days, health direct care professional would need to administer any further local anesthetic medication to you with extreme caution. Please be aware that your urine may blue to green in color for the next 1-2 days from the dye injection that you received. documented in this encounter [facility] 12-18-2023 Hospital Discharge instructions Jeff Livingston, CHARO.MACHINE MAINTENANCE SERVICER - 12/18/2023 9:57 AM EDT Images from the original note were not included. [facility] DISCHARGE INSTRUCTIONS Patient Name: Alberto Rodriguez Date: [...] Dept Phone 12/26/2023 10:00 AM JEFF VELASQUEZ [employer] [phone] 12/27/2023 10:00 AM LOY KWON [facility] [phone] 01/02/2024 9:10 AM LANEY IGNACIO [employer] [phone] 01/03/2024 1:30 PM JILLIAN DELGADO [employer] [phone] 01/09/2024 10:00 AM RAMANDEEP ALVAREZ [facility] [phone] Contact Information: If you have any urgent concerns after normal business hours or on the weekend, please call and ask the gasoline locomotive crane operator to page your doctor's Breast Service Xfvhlokp-ie-lzqb. FOLLOW THESE INSTRUCTIONS REGARDING MEDICATION: Any medications that are normally used can be taken when home, except as advised in the previous instructions. Prescriptions given: Keflex and [place] OTHER INSTRUCTIONS: None Patient / Significant Other sign: Education Given by: REMEMBER: If you experience excessive pain, swelling, drainage from the incision, difficulty in breathing, excessive bleeding, persistent nausea, vomiting or fever, please contact: Dr. Nicole's office at phone number [phone] (8am to 5pm Monday through Monday) or [...] when the drainage fills the bulb almost senior care. Please keep daily amounts of drainage separate [...] Date: Total (daily) documented in this encounter [facility] 12-18-2023 Note Select slides have b een reviewed in consultation with Dr. Walters, of the [facility] breast pathology department, who concurs. [facility] Comment on above: Order Comment: Speci men Type: TISSUE SPECIMENOrdering Facility: [facility] Address: [address] [place] [address] Performed By: #### L [id number] ####[facility] LABCLIA [id number] [address]#### S ####[facility] LABCLIA [id number] [address] LABCLIA [id number] [place] [id number] [facility] 12-18-2023 Note HNO ID: [id number] Author: REDD CURTIS AA Service: ? Author Type: Project Geologist Type: Anesthesia Procedure Notes Filed: 12/18/2023 08:47 Note Text: ANESTHESIOLOGY PROCEDURE NOTE Airway General Information Procedure Start Time/Medication Administration: 12/18/2023 8:38 AM Procedure End Time: 12/18/2023 8:39 AM Patient location during procedure: OR Timeout Performed Pre-procedure: timeout performed Consent Obtained: Yes Patient identity confirmed: arm band, care user experience team lead and patient Staffing CAA: Redd Curtis AA [...] December 18, 2023 TIME: 8:47 AM CSN: [id number] [facility] 12-18-2023 Attending History and physical note UPDATED HISTORY AND PHYSICAL EXAMINATION SERVICE DATE: 12/18/2023 SERVICE TIME: 8:33 AM SENSITIVE EXAMINATION CONSENT: The sensitive examination was discussed with the Patient or Patient's Authorized Dust Collector Ore Crushing. As applicable, any other physician, advance practice provider, medical student, or other health professional student that will be observing or involved in the sensitive examination for educational or training purposes was discussed with the Patient or Authorized Dust Collector Ore Crushing. The Patient or Authorized Dust Collector Ore Crushing has agreed to proceed with the sensitive [...] 8:33 AM Source Note - Elizabeth Smith, BANKING TEACHER.MACHINE MAINTENANCE SERVICER - 12/08/2023 1:38 PM EDT Images from [...] Assessment: pt unaware of dx, found in [facility] with brain MRI 10/2021. Denies any deficits. [...] was from 2008, no repeat noted in [facility] TSH Date Value Ref Range Status 07/11/2023 [...] pulmonic regurgitation Recent Results (from the past 63448 hour(s)) ECHO Collection Time: 12/15/23 10:22 AM [...] 0 Appetite Score: 0 MST Score: 0 [id number] Score: Age: >=75 Sex: female CHF history: No Hypertension history: Yes Stroke/TIA/thromboembolism history: No Vascular disease history: No Diabetes history: No [id number] Score: 4 ARISCAT Score: Age: >80 Preoperative [...] Valve Disease Order Specific Question: Type: Answer: [place] Valvular Regurgitation Order Specific Question: Indication: Answer: [...] background of lobular neoplasia (ALH/LCIS). 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 Neurological: No history of TIA's, stroke, STOCK BLENDER tumor, impaired sensorium, hemiplegia, paraplegia or quadraplegia. No neurological symptoms or problems. Respiratory: No history of current cough or dyspnea, or pneumonia in the past 6 weeks. No history of respiratory/pulmonary symptoms or problems. Cardiovascular: Positive for: hyperlipidemia (on rx) and hypertension (on rx) Negative for: anticoagulation therapy, arrhythmia, atrial fibrillation, CAD, chest pain, CHF, congenital heart defect, DVT/PE, recent CA, murmur/valvular heart disease, PVD, open heart surgery and valve surgery. GI: No history of GI symptoms or problems. No history of esophageal varices, recent ascites, or ETOH greater than 2 drinks per day. : No history of dysuria, frequency or incontinence, stones or chronic kidney disease. No difficulty urinating, nocturia > 1 time per night or hematuria. LATHE TURNER: Negative for abnormal vaginal bleeding, abnormal vaginal [...] IF UNABLE, PLEASE REFER TO [facility] AT [facility]. DX: EDEMA Taking Yes multivitamin tablet Take [...] 410 QTC Calculation (Bazett) 448 Calculated P [place] 67 Calculated R [place] 17 Calculated T [place] 22 Impression NORMAL SINUS RHYTHM NORMAL ECG Confirmed by DULCE BELLE DO ([id number]) on 12/11/2023 8:15:56 PM Recent Results (from the past 81024 hour(s)) ECHO Collection Time: 12/15/23 10:22 AM [...] 08, 2023 TIME: 1:38 PM PAGER/CONTACT #: [facility] Work Phone: 12-18-2023 History and physical note UPDATED HISTORY AND PHYSICAL EXAMINATION SERVICE DATE: 12/18/2023 SERVICE TIME: 8:33 AM SENSITIVE EXAMINATION CONSENT: The sensitive examination was discussed with the Patient or Patient's Authorized Dust Collector Ore Crushing. As applicable, any other physician, advance practice provider, medical student, or other health professional student that will be observing or involved in the sensitive examination for educational or training purposes was discussed with the Patient or Authorized Dust Collector Ore Crushing. The Patient or Authorized Dust Collector Ore Crushing has agreed to proceed with the sensitive [...] 8:33 AM Source Note - Elizabeth Smith, BANKING TEACHER.MACHINE MAINTENANCE SERVICER - 12/08/2023 1:38 PM EDT Images from the original note were not included. [facility] HISTORY [...] Assessment: pt unaware of dx, found in [facility] with brain MRI 10/2021. Denies any deficits. [...] was from 2008, no repeat noted in [facility] TSH Date Value Ref Range Status 07/11/2023 [...] pulmonic regurgitation Recent Results (from the past 47113 hour(s)) ECHO Collection Time: 12/15/23 10:22 AM [...] 0 Appetite Score: 0 MST Score: 0 [id number] Score: Age: >=75 Sex: female CHF history: No Hypertension history: Yes Stroke/TIA/thromboembolism history: No Vascular disease history: No Diabetes history: No [id number] Score: 4 ARISCAT Score: Age: >80 Preoperative [...] Valve Disease Order Specific Question: Type: Answer: [place] Valvular Regurgitation Order Specific Question: Indication: Answer: [...] background of lobular neoplasia (ALH/LCIS). 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 Neurological: No history of TIA's, stroke, STOCK BLENDER tumor, impaired sensorium, hemiplegia, paraplegia or quadraplegia. No neurological symptoms or problems. Respiratory: No history of current cough or dyspnea, or pneumonia in the past 6 weeks. No history of respiratory/pulmonary symptoms or problems. Cardiovascular: Positive for: hyperlipidemia (on rx) and hypertension (on rx) Negative for: anticoagulation therapy, arrhythmia, atrial fibrillation, CAD, chest pain, CHF, congenital heart defect, DVT/PE, recent CA, murmur/valvular heart disease, PVD, open heart surgery and valve surgery. GI: No history of GI symptoms or problems. No history of esophageal varices, recent ascites, or ETOH greater than 2 drinks per day. : No history of dysuria, frequency or incontinence, stones or chronic kidney disease. No difficulty urinating, nocturia > 1 time per night or hematuria. LATHE TURNER: Negative for abnormal vaginal bleeding, abnormal vaginal [...] IF UNABLE, PLEASE REFER TO [facility] AT [facility]. DX: EDEMA Taking Yes multivitamin tablet Take [...] 410 QTC Calculation (Bazett) 448 Calculated P [place] 67 Calculated R [place] 17 Calculated T [place] 22 Impression NORMAL SINUS RHYTHM NORMAL ECG Confirmed by DULCE BELLE DO ([id number]) on 12/11/2023 8:15:56 PM Recent Results (from the past 03894 hour(s)) ECHO Collection Time: 12/15/23 10:22 AM [...] PM PAGER/CONTACT #: documented in this encounter [facility] 12-13-2023 Note IMPRESSION: Post procedure mammogram shows successful clip placement. Mammogram BI-RADS: Post-procedure mammogram for marker placement Interpreting Radiologist: Clarisa Villegas M.D. Fast Food Cashier: ALBA Transcribe Date/Time: Dec 13 2023 1:28P Dictated by : CLARISA VILLEGAS MD This examination was interpreted and the report reviewed and electronically signed by: CLARISA VILLEGAS MD on Dec 13 2023 3:25PM [facility] DIVISION OF RADIOLOGY 12-13-2023 Note HNO ID: [id number] Author: NURIS ALEGRIA RN Service: ? Author [...] Time spent on patient education: 30 minutes. [facility] 12-13-2023 History of Present illness Narrative [...] education: 30 minutes. documented in this encounter [facility] 12-13-2023 Instructions Formatting of th is note might be different from the original. Patient given post procedure instructions [facility] 12-13-2023 Note HNO ID: [id number] Author: NURIS BRUNSON RT(R) Service: ? Author Type: Warp Drawer Type: Patient Education Filed: 12/13/2023 13:37 Note Text: Patient given post procedure instructions [facility] 12-13-2023 Miscellaneous Notes Patient given post procedure instructions documented in this encounter [facility] 12-11-2023 Note HNO ID: [id number] Author: RAMANDEEP ALVAREZ MD Service: ? Author [...] mass was seen. 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 No problem-specific Assessment AND Plan [...] is not estro (more content not included)... [facility] 12-11-2023 History of Present illness Narrative [...] mass was seen. 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 No problem-specific Assessment & Plan [...] Ramandeep Alvarez MD documented in this encounter [facility] 12-08-2023 History and physical note Images from [...] Assessment: pt unaware of dx, found in [facility] with brain MRI 10/2021. Denies any deficits. [...] was from 2008, no repeat noted in [facility] TSH Date Value Ref Range Status 07/11/2023 [...] 0 Appetite Score: 0 MST Score: 0 [id number] Score: Age: >=75 Sex: female CHF history: No Hypertension history: Yes Stroke/TIA/thromboembolism history: No Vascular disease history: No Diabetes history: No [id number] Score: 4 ARISCAT Score: Age: >80 Preoperative [...] Valve Disease Order Specific Question: Type: Answer: [place] Valvular Regurgitation Order Specific Question: Indication: Answer: [...] background of lobular neoplasia (ALH/LCIS). 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 Neurological: No history of TIA's, stroke, STOCK BLENDER tumor, impaired sensorium, hemiplegia, paraplegia or quadraplegia. No neurological symptoms or problems. Respiratory: No history of current cough or dyspnea, or pneumonia in the past 6 weeks. No history of respiratory/pulmonary symptoms or problems. Cardiovascular: Positive for: hyperlipidemia (on rx) and hypertension (on rx) Negative for: anticoagulation therapy, arrhythmia, atrial fibrillation, CAD, chest pain, CHF, congenital heart defect, DVT/PE, recent CA, murmur/valvular heart disease, PVD, open heart surgery and valve surgery. GI: No history of GI symptoms or problems. No history of esophageal varices, recent ascites, or ETOH greater than 2 drinks per day. : No history of dysuria, frequency or incontinence, stones or chronic kidney disease. No difficulty urinating, nocturia > 1 time per night or hematuria. LATHE TURNER: Negative for abnormal vaginal bleeding, abnormal vaginal [...] IF UNABLE, PLEASE REFER TO [facility]UN[facility] AT [facility]. DX: EDEMA Taking Yes multivitamin tablet Take [...] 410 QTC Calculation (Bazett) 448 Calculated P [place] 67 Calculated R [place] 17 Calculated T [place] 22 Impression NORMAL SINUS RHYTHM NORMAL ECG No results found for this or any previous visit (from the past 25202 hour(s)). Instructions Given to Patient: Instructions located in the after visit summary. Patient given verbal and written preop instructions and voices comprehension and compliance. SIGNATURE: Elizabeth Smith APRN.CNP PATIENT NAME: Alberto Rodriguez DATE: December 08, 2023 TIME: 1:38 PM PAGER/CONTACT #: [facility] 12-08-2023 History and physical note Images from the original note were not included. [place] [facility] HISTORY [...] Assessment: pt unaware of dx, found in [facility] with brain MRI 10/2021. Denies any deficits. [...] was from 2008, no repeat noted in [facility] TSH Date Value Ref Range Status 07/11/2023 [...] 0 Appetite Score: 0 MST Score: 0 [id number] Score: Age: >=75 Sex: female CHF history: No Hypertension history: Yes Stroke/TIA/thromboembolism history: No Vascular disease history: No Diabetes history: No [id number] Score: 4 ARISCAT Score: Age: >80 Preoperative [...] Valve Disease Order Specific Question: Type: Answer: [place] Valvular Regurgitation Order Specific Question: Indication: Answer: [...] background of lobular neoplasia (ALH/LCIS). 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 Neurological: No history of TIA's, stroke, STOCK BLENDER tumor, impaired sensorium, hemiplegia, paraplegia or quadraplegia. No neurological symptoms or problems. Respiratory: No history of current cough or dyspnea, or pneumonia in the past 6 weeks. No history of respiratory/pulmonary symptoms or problems. Cardiovascular: Positive for: hyperlipidemia (on rx) and hypertension (on rx) Negative for: anticoagulation therapy, arrhythmia, atrial fibrillation, CAD, chest pain, CHF, congenital heart defect, DVT/PE, recent CA, murmur/valvular heart disease, PVD, open heart surgery and valve surgery. GI: No history of GI symptoms or problems. No history of esophageal varices, recent ascites, or ETOH greater than 2 drinks per day. : No history of dysuria, frequency or incontinence, stones or chronic kidney disease. No difficulty urinating, nocturia > 1 time per night or hematuria. LATHE TURNER: Negative for abnormal vaginal bleeding, abnormal vaginal [...] IF UNABLE, PLEASE REFER TO [facility] AT [facility]. DX: EDEMA Taking Yes multivitamin tablet Take [...] 410 QTC Calculation (Bazett) 448 Calculated P [place] 67 Calculated R [place] 17 Calculated T [place] 22 Impression NORMAL SINUS RHYTHM NORMAL ECG No results found for this or any previous visit (from the past 05642 hour(s)). Instructions Given to Patient: Instructions located in the after visit summary. Patient given verbal and written preop instructions and voices comprehension and compliance. SIGNATURE: Elizabeth Smith APRN.CNP PATIENT NAME: Alberto Rodriguez DATE: December 08, 2023 TIME: 1:38 PM PAGER/CONTACT #: documented in this encounter [facility] 12-08-2023 Instructions Elizabeth Smith APRN.CNP - 12/08/2023 1:35 PM EDT Images from the original note were not included. [facility] PATIENT PREOPERATIVE INSTRUCTIONS Kimberly Chavez PA-C has scheduled you for your procedure at this surgery center: [facility]: [phone] --[address] [place] [address] Location is near [facility]. Please read below carefully for your personalized [...] Procedures: - YOU MUST HAVE A RESPONSIBLE SEAMER ELASTIC BAND TAKE YOU HOME. A PUBLIC SPEAKING INSTRUCTOR OR CONCERT SINGER CANNOT BE MADE A RESPONSIBLE SEAMER ELASTIC BAND. - We recommend that a responsible person [...] Advance Directive, please fax a copy to [phone] or email to for it to be [...] Elizabeth Smith APRN.SANTO documented in this encounter [facility] 12-01-2023 Telephone encounter Note Spoke with patient and rescheduled as directed. Reny Lima [facility] 12-01-2023 Miscellaneous Notes Spoke with patient and [...] to call patient. documented in this encounter [facility] 11-30-2023 Telephone encounter Note Per Dr. Ignacio- please move out OV with Dr. Ignacio 1-2 weeks. Melisa Pichardo LPN [facility] 11-29-2023 Telephone encounter Note [facility] closed, needing to go to [facility]. Bessie Mendez LPN [facility] 11-29-2023 Miscellaneous Notes [facility] closed, needing to go to [facility]. Bessie Mendez LPN Prescription Refill Information The [...] 2023 9:25 AM documented in this encounter [facility] 11-29-2023 Telephone encounter Note As far as Dr Delgado goes; it would be appropriate to reschedule 7-10 after surgery so we have her pathology back. [facility] 11-28-2023 Telephone encounter Note Simple mastectomy scheduled for 12/18/2023. When would you like to see the patient (she won't be coming in as scheduled on 12/18)? Melisa Pichardo LPN [facility] 11-28-[address] Kwon's office called stating that patient is having surgery on 12/17. Patient is scheduled to see Dr. Ignacio and Jeff Velasquez on 12/18. Dr. Delgado on 12/20. Please advise when to reschedule. Okay to call patient. [facility] Work Phone: 11-27-2023 Telephone encounter Note I have reviewed and approved the localization plan. Images dated 11/20/2023 are annotated. Please note, patient has known right breast cancer for which mastectomy is planned. Radiologist: Clarisa Villegas MD [facility] Work Phone: 11-27-2023 Miscellaneous Notes I have reviewed and approved the localization plan. Images dated 11/20/2023 are annotated. Please note, patient has known right breast cancer for which mastectomy is planned. Radiologist: Clarisa Villegas MD LOCALIZATION IMAGE REVIEW (Please do NOT submit until entire workup complete) (if > 3 reflectors to be placed in one breast, please review with radiologist) Alberto Rodriguez [id number] 1935 WORK- UP COMPLETE? Yes Order Placed Yes Left - Site 1 Location 11oc 3cfn Clip Shape Q Clip Migration No Pathology \ALH Preferred Localization jazmyn Loy Kwon MD 9:52 AM documented in this encounter [facility] 11-25-2023 Telephone encounter Note Prescription Refill Information [...] Sherrie Haque November 25, 2023 9:25 AM [facility] 11-23-2023 Telephone encounter Note Attempted to contact patient re: surgery date Left detailed VM Requested callback for confirmation Surgery date: 12/17 Kimberly Chavez PA-C November 23, 2023 2:46 PM [facility] Work Phone: 11-23-2023 Miscellaneous Notes Attempted to contact patient re: surgery date Left detailed VM Requested callback for confirmation Surgery date: 12/17 Kimberly Chavez PA-C November 23, 2023 2:46 PM documented in this encounter [facility] 11-23-2023 Telephone encounter Note LOCALIZATION IMAGE REVIEW (Please do NOT submit until entire workup complete) (if > 3 reflectors to be placed in one breast, please review with radiologist) Alberto Rodriguez [id number] 1935 WORK- UP COMPLETE? Yes Order Placed Yes Left - Site 1 Location 11oc 3cfn Clip Shape Q Clip Migration No Pathology \ALH Preferred Localization jazmyn Loy Kwon MD 9:52 AM [facility] Work Phone: 11-23-2023 Telephone encounter Note reached patient this morning reviewed all of the biopsies she has had and the corresponding path reports multiple questions answered and clarified will proceed with scheduling R-SM-SLNB and LEFT JAZMYN excisional biopsy questions answered Loy Kwon MD 9:53 AM [facility] 11-23-2023 Miscellaneous Notes reached patient this morning reviewed all of the biopsies she has had and the corresponding path reports multiple questions answered and clarified will proceed with scheduling R-SM-SLNB and LEFT JAZMYN excisional biopsy questions answered Loy Kwon MD 9:53 AM documented in this encounter [facility] 11-22-2023 Telephone encounter Note Pt returning call from Dr. Kwon she is available now at [phone], she is requesting to speak with Dr. Kwon. [facility] 11-22-2023 Miscellaneous Notes Pt returning call from Dr. Kwon she is available now at [phone], she is requesting to speak with Dr. Kwon. documented in this encounter [facility] 11-22-2023 Telephone encounter Note LVM - calling to review recent MR biopsy result asked her to return my call Loy Kwon MD 8:41 AM [facility] Work Phone: 11-22-2023 Miscellaneous Notes LVM - calling to review recent MR biopsy result asked her to return my call Loy Kwon MD 8:41 AM documented in this encounter [facility] 11-20-2023 History of Present illness Narrative Radiology [...] PATIENT PRESENTS WITH AN IMPLANTABLE OR ATTACHED ABALONE SHELLER: No ALLERGIES: Reviewed and unchanged CONTRAST ALLERGY: [...] TIME: 1:34 PM documented in this encounter [facility] 11-20-2023 Note HNO ID: [id number] Author: JU ABBOTT RT(R) Service: Radiology Author [...] PATIENT PRESENTS WITH AN IMPLANTABLE OR ATTACHED ABALONE SHELLER: No ALLERGIES: Reviewed and unchanged CONTRAST ALLERGY: NO. EXAM: MRI - CONTRAST TYPE: GROUP II PERIPHERAL IV DATA: Ambulatory: A peripheral IV was started in the Left antecubital site with a Angio cath: 22 gauge. RADIOLOGY DEPARTMENT: MR; Exam(s) Completed: Chest: Breast Left MRI Breast Biopsy Aftercare instructions given SIGNATURE: RT Dot(Lianna) PATIENT NAME: Alberto Rodriguez DATE: November 20, 2023 TIME: 1:34 PM [facility] 11-14-2023 Note HNO ID: [id number] Author: ?, ?, ? Service: ? Author Type: ? Type: Progress Notes Filed: 11/14/2023 11:01 Note Text: Alberto Rodriguez is identified through a medication adherence outreach initiative based on pharmacy claims data from [employer] (insurer) for Statin medication(s). Patient is reviewed [...] when she needs it Juan Jose Acevedo [facility] 11-14-2023 History of Present illness Narrative Alberto Rodriguez is identified through a medication adherence outreach initiative based on pharmacy claims data from [employer] (insurer) for Statin medication(s). Patient is reviewed [...] Juan Jose Acevedo documented in this encounter [facility] 11-14-2023 Note Patient Outreach ( POHE) ALBERTO RODRIGUEZ ([id number]) 1935 F Date Time Provider Department 11/14/23 RAMANDEEP ALVAREZ During your visit today, we recorded the following information about you: Juan Jose Acevedo 11/14/2023 11:01 AM Signed Alberto Rodriguez is identified through a medication adherence outreach initiative based on pharmacy claims data from [employer] (insurer) for Statin medication(s). Patient is reviewed [...] IF UNABLE, PLEASE REFER TO [facility] AT [facility]. DX: EDEMA - multivitamin tablet Take 1 [...] Status:Closed by JUAN JOSE ACEVEDO on 11/14/23 [facility] 11-08-2023 Note HNO ID: [id number] Author: LANEY IGNACIO, DO Service: ? Author [...] External Control Present and Stained as Expected MI status Positive (greater than or equal to 1%) MI % staining 99 Progesterone Receptor (Staining Intensity) [...] with clip placement 11/19. She lives in [place]. . Has close friend. Fully capable of [...] bedtime for 180 (more content not included)... [facility] 11-08-2023 History of Present illness Narrative [...] External Control Present and Stained as Expected MI status Positive (greater than or equal to 1%) MI % staining 99 Progesterone Receptor (Staining Intensity) [...] with clip placement 11/19. She lives in [place]. . Has close friend. Fully capable of [...] IF UNABLE, PLEASE REFER TO [facility] AT [facility]. DX: EDEMA No current facility-administered medications for [...] which included preparing to see the patient, [id number] patient care, completing clinical documentation, obtaining and/or reviewing separately obtained history, performing a medically appropriate examination, counseling and educating the patient/family/caregiver, ordering medications, tests, or procedures, communicating with other HCPs (not separately reported), and communicating results to the patient/family/caregiver. Laney Ignacio DO documented in this encounter [facility] 11-08-2023 Note HNO ID: [id number] Author: JILLIAN DELGADO MD Service: ? Author Type: Physician Type: Progress Notes Filed: 11/10/2023 11:37 Note Text: Radiation Oncology - New Patient/Consult Note PATIENT NAME: Alberto Rodriguez PATIENT REQUESTING PROVIDER: Dr. 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 It's ER positive (99%, strong), MI positive (99%, strong), and Her2 2+ and [...] carcinoma in-situ). It's ER positive (99%, strong), MI positive (99%, strong), and Her2 2+ and [...] IF UNABLE, PLEASE REFER TO [facility] AT [facility]. DX: EDEMA No current facility-administered medications on [...] or inflammatory b (more content not included)... [facility] 11-08-2023 History of Present illness Narrative Radiation Oncology - New Patient/Consult Note PATIENT NAME: Alberto Rodriguez PATIENT REQUESTING PROVIDER: Dr. 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 It's ER positive (99%, strong), MI positive (99%, strong), and Her2 2+ and [...] carcinoma in-situ). It's ER positive (99%, strong), MI positive (99%, strong), and Her2 2+ and [...] IF UNABLE, PLEASE REFER TO [facility] AT [facility]. DX: EDEMA No current facility-administered medications on [...] right breast. It's ER positive (99%, strong), MI positive (99%, strong), and Her2 2+ and [...] by: Jillian Delgado MD cc: Ramandeep Alvarez [address] [place] [address] Loy Walt Musa [id number] [facility] [id number] Laney Ignacio documented in this encounter [facility] 11-08-2023 Nurse Note Radiation Therapy - Nursing Note (Consult) PATIENT NAME: Alberto Rodriguez PATIENT November 08, 2023 [facility] [place] FACILITY/LOCATION: [place] Chief Complaint: Breast cancer Reason for visit: Consult. Referring physician: Internal provider Dr Kwon Subjective Data: No complaints Additional Data Do you want to see a Health Sciences Dean? Yes will schedule Are you interested in information about fertility? No Status: Post-menopausal Stress Scale: On a scale of 0 to 10, what number best describes how much distress you have experienced in the past week?(0 being no distress and 10 being extreme distress) 6 Social work notified: Pt denied need to see social work assistant at this time. SIGNED by: Hayley Glynn RN [facility] 11-08-2023 Nurse Note Radiation Therapy - Nursing Note (Consult) PATIENT NAME: Alberto Rodriguez PATIENT November 08, 2023 [facility] [place] FACILITY/LOCATION: [place] Chief Complaint: Breast cancer Reason for visit: Consult. Referring physician: Internal provider Dr Kwon Subjective Data: No complaints Additional Data Do you want to see a Health Sciences Dean? Yes will schedule Are you interested in information about fertility? No Status: Post-menopausal Stress Scale: On a scale of 0 to 10, what number best describes how much distress you have experienced in the past week?(0 being no distress and 10 being extreme distress) 6 Social work notified: Pt denied need to see social work assistant at this time. SIGNED by: Hayley Glynn RN documented in this encounter [facility] 11-08-2023 Note HNO ID: [id number] Author: SANNA CARRANZA MA Service: ? Author Type: Overage Shortage And Damage Clerk Type: Progress Notes Filed: 11/08/2023 12:36 Note Text: POPULATION HEALTH NAVIGATION OUTREACH Action/FYI Patient is on [facility] CURRENT [facility] Workbench list for below [...] Carranza MA November 08, 2023 12:35 PM [facility] 11-08-2023 History of Present illness Narrative POPULATION HEALTH NAVIGATION OUTREACH Action/FYI [facility] for below and needs appointment [...] 2023 12:35 PM documented in this encounter [facility] 11-08-2023 Telephone encounter Note she is becomingly [...] questions answered Loy Kwon MD 8:36 AM [facility] Work Phone: 11-08-2023 Miscellaneous Notes she is [...] see possibility of that questions answered Loy Kwno MD 8:36 AM documented in this encounter [facility] 11-08-2023 Note Patient Outreach (NE TNAV) ALBERTO RODRIGUEZ ([id number]) 1935 F Date Time Provider Department 11/08/23 SANNA CARRANZA During your visit today, we recorded the following information about you: Sanna Carranza MA 11/08/2023 12:36 PM Signed POPULATION HEALTH NAVIGATION OUTREACH Action/FYI Patient is on [facility] Workbench list for below [...] IF UNABLE, PLEASE REFER TO [facility]. DX: EDEMA - multivitamin tablet Take 1 [...] Encounter Status:Closed by SANNA CARRANZA on 11/08/23 [facility] 11-06-2023 History of Present illness Narrative [...] PATIENT PRESENTS WITH AN IMPLANTABLE OR ATTACHED ABALONE SHELLER: No RADIOLOGY DEPARTMENT: MR; Exam(s) Completed: Chest: Breast PERIPHERAL IV DATA: Not applicable SIGNED BY: JASON Delaney November 06, 2023 11:59 AM documented in this encounter [facility] 11-06-2023 Note HNO ID: [id number] Author: ANTONIO LLAMAS MRI Tech Service: ? [...] PATIENT PRESENTS WITH AN IMPLANTABLE OR ATTACHED ABALONE SHELLER: No RADIOLOGY DEPARTMENT: MR; Exam(s) Completed: Chest: Breast PERIPHERAL IV DATA: Not applicable SIGNED BY: JASON Delaney November 06, 2023 11:59 AM [facility] 11-06-2023 Instructions Formatting of th is note might be different from the original. Patient given post procedure instructions [facility] 11-06-2023 Note HNO ID: [id number] Author: NURIS BRUNSON RT(R) Service: ? Author Type: Warp Drawer Type: Patient Education Filed: 11/06/2023 08:59 Note Text: Patient given post procedure instructions [facility] 11-06-2023 Miscellaneous Notes Patient given post procedure instructions documented in this encounter [facility] 11-02-2023 Telephone encounter Note Attempted to return patient's call Left [facility] requesting sooner apt for US core biopsy Left message in return for patient Can move biopsy to Sunday 11/05 at 8:30 in Requested callback for confirmation Kimberly Chavez PA-C November 02, 2023 3:02 PM [facility] Work Phone: 11-02-2023 Miscellaneous Notes Attempted to return patient's call Left [facility] requesting sooner apt for US core biopsy Left message in return for patient Can move biopsy to Sunday 11/05 at 8:30 in Requested callback for confirmation Kimberly Chavez PA-C November 02, 2023 3:02 PM documented in this encounter [facility] 10-27-2023 History of Present illness Narrative Radiology [...] PATIENT PRESENTS WITH AN IMPLANTABLE OR ATTACHED ABALONE SHELLER: No RADIOLOGY DEPARTMENT: Mammography PERIPHERAL IV DATA: Not applicable SIGNED BY: RT Macie(Lianna) October 27, 2023 2:16 PM documented in this encounter [facility] 10-27-2023 Note HNO ID: [id number] Author: RADHA BALDWIN RT(R) Service: ? Author [...] PATIENT PRESENTS WITH AN IMPLANTABLE OR ATTACHED ABALONE SHELLER: No RADIOLOGY DEPARTMENT: Mammography PERIPHERAL IV DATA: Not applicable SIGNED BY: ELIDA Quijano) October 27, 2023 2:16 PM [facility] 10-26-2023 Telephone encounter Note reached patient reviewed MRI results she understands need for a workup on the LEFT (contralateral) side will touch base after the left side is further clarified questions answered Loy Kwon MD 11:22 AM [facility] Work Phone: 10-26-2023 Miscellaneous Notes reached patient reviewed MRI results she understands need for a workup on the LEFT (contralateral) side will touch base after the left side is further clarified questions answered Loy Kwon MD 11:22 AM documented in this encounter [facility] 10-25-2023 Telephone encounter Note Patient called again about a call back to discuss the results of her previous test and also to speak with you before her ultrasound scheduled for October 26. Patient can be reached at [phone]. Thanks [facility] 10-25-2023 Miscellaneous Notes Patient called again about a call back to discuss the results of her previous test and also to speak with you before her ultrasound scheduled for October 26. Patient can be reached at [phone]. Thanks Patient requesting a call back regarding her results she stated she was contacted yesterday to have an ultrasound on Monday but she wanted to know if clinical team or Musa Frost had a chance to see her results pt can be reached at [phone]. documented in this encounter [facility] 10-24-2023 Telephone encounter Note Patient requesting a call back regarding her results she stated she was contacted yesterday to have an ultrasound on Monday but she wanted to know if clinical team or Musa Frost had a chance to see her results pt can be reached at [phone]. [facility] 10-21-2023 History of Present illness Narrative Radiology [...] PATIENT PRESENTS WITH AN IMPLANTABLE OR ATTACHED ABALONE SHELLER: No RADIOLOGY DEPARTMENT: MR; Exam(s) Completed: Chest: Breast PERIPHERAL IV DATA: Site assessment: Clean,Dry and Intact, Site disposition Discontinued SIGNED BY: RT Lluvia(R) October 21, 2023 10:15 AM documented in this encounter [facility] 10-21-2023 Note HNO ID: [id number] Author: ORIANA PIRES RN Service: Radiology Author [...] DATE: October 21, 2023 TIME: 10:04 AM [facility] 10-21-2023 Note HNO ID: [id number] Author: BLANCA HUANG RT(R) Service: Radiology Author Type: Warp Drawer Type: Progress Notes Filed: 10/21/2023 10:15 Note [...] PATIENT PRESENTS WITH AN IMPLANTABLE OR ATTACHED ABALONE SHELLER: No RADIOLOGY DEPARTMENT: MR; Exam(s) Completed: Chest: Breast PERIPHERAL IV DATA: Site assessment: Clean,Dry and Intact, Site disposition Discontinued SIGNED BY: RT Lluvia(R) October 21, 2023 10:15 AM [facility] 10-19-2023 History of Present illness Narrative [...] PATIENT PRESENTS WITH AN IMPLANTABLE OR ATTACHED ABALONE SHELLER: No RADIOLOGY DEPARTMENT: Mammography PERIPHERAL IV DATA: Not applicable SIGNED BY: RT Macie(Lianna) October 19, 2023 1:17 PM documented in this encounter [facility] 10-19-2023 Note HNO ID: [id number] Author: RADHA BALDWIN RT (R) Service: ? [...] PATIENT PRESENTS WITH AN IMPLANTABLE OR ATTACHED ABALONE SHELLER: No RADIOLOGY DEPARTMENT: Mammography PERIPHERAL IV DATA: Not applicable SIGNED BY: RT Macie(Lianna) October 19, 2023 1:17 PM [facility] 10-19-2023 Nurse Note Patient was referred [...] this time Is the patient active on Source Audiot No: patient declines Electronically Signed By: Nuris [...] use: Yes Comment: occasionally Drug use: No [facility] 10-19-2023 History of Present illness Narrative NEW [...] background of lobular neoplasia (ALH/LCIS). ER 99 MI 99 Her2 FISH negative SA: TOP HAT [facility] 10/21/23: MRI scheduled HISTORY OF BREAST [...] IF UNABLE, PLEASE REFER TO [facility] AT [facility]. DX: EDEMA multivitamin tablet Take 1 tablet [...] site stereo biopsy in September cTmic N0 ER/MI 99 Her2 FISH negative the anterior(RA) biopsy: [...] of systemic endocrine and radiation therapy Ms. Rordiguez would prefer BCT if she was a [...] which included preparing to see the patient, [id number] patient care, completing clinical documentation, obtaining and/or [...] Ramandeep Alvarez MD documented in this encounter [facility] 10-19-2023 Note HNO ID: [id number] Author: LOY KWON MD Service: ? Author [...] background of lobular neoplasia (ALH/LCIS). ER 99 MI 99 Her2 FISH negative SA: TOP HAT [...] IF UNABLE, PLEASE REFER TO [facility] AT [facility]. DX: EDEMA multivitamin tablet Take 1 tablet [...] recent Breast C (more content not included)... [facility] 10-19-2023 Nurse Note Patient was referred [...] this time Is the patient active on Source Audiot No: patient declines Electronically Signed By: Nuris [...] Drug use: No documented in this encounter [facility] 10-12-2023 Note Addended by: NURIS AZEVEDO OM on: 10/12/2023 02:58 PM Modules accepted: Orders [facility] 10-12-2023 Miscellaneous Notes Addended by: NURIS ALEGRIA [...] External Control Present and Stained as Expected MI status Positive (greater than or equal to 1%) MI % staining 99 Progesterone Receptor (Staining Intensity) Strong Progesterone Receptor Internal Control Present and Stained as Expected Progesterone Receptor External Control Present and Stained as Expected HER2 IHC Status Equivocal for HER2 Overexpression HER2 IHC Score 2+ Tumor Type Primary Invasive Breast Carcinoma Breast Tumor Grade Not Graded Comment: Microinvasive carcinoma [facility] Referring Laboratory Case Number Block ID [id number] [...] my chart message documented in this encounter [facility] 10-12-2023 Telephone encounter Note Reached out to [...] External Control Present and Stained as Expected MI status Positive (greater than or equal to 1%) MI % staining 99 Progesterone Receptor (Staining Intensity) Strong Progesterone Receptor Internal Control Present and Stained as Expected Progesterone Receptor External Control Present and Stained as Expected HER2 IHC Status Equivocal for HER2 Overexpression HER2 IHC Score 2+ Tumor Type Primary Invasive Breast Carcinoma Breast Tumor Grade Not Graded Comment: Microinvasive carcinoma [facility] Referring Laboratory Case Number Block ID [id number] Fish is pending Family HX Sister Breast cancer Sister Breast cancer PGM Stomach cancer Discussed med/onc and rad/onc, MRI. Scheduled MRI 1st available for October 20 Reviewed and updated allergies, medications, surgical, medical, family, and OB history. Contact information provided, encouraged to call with any questions or concerns. [facility] 10-12-2023 Note Addended by: NURIS AZEVEDO OM on: 10/12/2023 11:35 AM Modules accepted: Orders T [facility] 10-12-2023 Telephone encounter Note Attempt to reach Alberto regarding upcoming appt with Dr Kwon- memory is full unable to leave message. Pt does not have my chart access to send my chart message [facility] 10-04-2023 Instructions Formatting of th is note might be different from the original. Pt given written post procedure instructions [facility] 10-04-2023 Note HNO ID: [id number] Author: RADHA BALDWIN RT(R) Service: ? Author Type: Technologist Type: Patient Education Filed: 10/04/2023 14:46 Note Text: Pt given written post procedure instructions [facility] 10-04-2023 Miscellaneous Notes Pt given written post procedure instructions documented in this encounter [facility] 09-15-2023 Note HNO ID: [id number] Author: ANGÉLICA PULIDO APRN.STOCK BLENDER Service: ? Author Type: Nurse Specialist Type: [...] IF UNABLE, PLEASE REFER TO [facility] AT [facility]. DX: EDEMA multivitamin tablet Take 1 tablet [...] 84.6 MCH 26.0 (more content not included)... [facility] 09-15-2023 History of Present illness Narrative [...] IF UNABLE, PLEASE REFER TO [facility] AT [facility]. DX: EDEMA multivitamin tablet Take 1 tablet [...] 1.00 - 4.00 k/uL 1.46 1.61 1.79 [place]% % 10.5 8.1 9.2 Abs [place] <0.87 k/uL 0.53 0.52 0.71 Eosin% % [...] - Low , documented in this encounter [facility] 09-05-2023 Telephone encounter Note Pt notified of IFOBT results. Pt reports she spoke to someone who said she would be getting a call to set up biopsy appt. Blanca Smith LPN [facility] 09-05-2023 Miscellaneous Notes Pt notified of IFOBT results. Pt reports she spoke to someone who said she would be getting a call to set up biopsy appt. Blanca Smith LPN Advise pt of both messages when she calls back. (bx due to mammogram) Mara Gimenez LPN ----- Message from Angélica Pulido APRN.STOCK BLENDER sent at 09/03/2023 3:49 PM EDT ----- Needs biopsy scheduled Left a message for pt to call the office and ask to speak to a nurse. Mara Gimenez LPN ----- Message from Angélica Pulido APRN.STOCK BLENDER sent at 09/03/2023 2:08 PM EDT ----- FOBT negative documented in this encounter [facility] 09-05-2023 Telephone encounter Note Advise pt of both messages when she calls back. (bx due to mammogram) Mara Gimenez LPN [facility] 09-05-2023 Telephone encounter Note ----- Message from Angélica Pulido APRN.STOCK BLENDER sent at 09/03/2023 3:49 PM EDT ----- Needs biopsy scheduled [facility] 09-05-2023 Telephone encounter Note Left a message for pt to call the office and ask to speak to a nurse. Mara Gimenez LPN [facility] 09-05-2023 Telephone encounter Note ----- Message from Angélica Pulido APRN.STOCK BLENDER sent at 09/03/2023 2:08 PM EDT ----- FOBT negative T [facility] 09-04-2023 Note HNO ID: [id number] Author: AYO JOEL MD Service: ? Author Type: Physician Type: Progress Notes Filed: 09/04/2023 14:10 Note Text: I am reviewing diagnostic breast imaging from [facility] in order to approve a biopsy request. Two site right stereotactic biopsy has been recommended from imaging done on 08/22/2023. The patient may schedule. A nurse navigator will contact the patient. Jan Joel MD [facility] 09-04-2023 History of Present illness Narrative I am reviewing diagnostic breast imaging from [facility] in order to approve a biopsy request. Two site right stereotactic biopsy has been recommended from imaging done on 08/22/2023. The patient may schedule. A nurse navigator will contact the patient. Jan Joel MD documented in this encounter [facility] 08-29-2023 Note HNO ID: [id number] Author: RILEY GREGORY MD Service: ? Author [...] mammogram, 07/01/2021 mammogram, and 06/03/2020 mammogram - [facility]. Color flow and real-time ultrasound of the [...] IF UNABLE, PLEASE REFER TO [facility] AT [facility]. DX: EDEMA 1 Each 0 multivitamin tablet [...] ALLERGIES: Vicodin [Hydrocodon (more content not included)... [facility] 08-29-2023 History of Present illness Narrative [...] mammogram, 07/01/2021 mammogram, and 06/03/2020 mammogram - [facility]. Color flow and real-time ultrasound of the [...] IF UNABLE, PLEASE REFER TO [facility] AT [facility]. DX: EDEMA 1 Each 0 multivitamin tablet [...] entered by the nurse and reviewed by ca Nursing Notes: Lacey Richmond LPN 08/29/2023 4:11 [...] Riley Gregory MD documented in this encounter [facility] 08-29-2023 Nurse Note REVIEW OF SYSTEMS: General: [...] 2023 Last Colonoscopy: 2017 Lacey Richmond LPN [facility] 08-29-2023 Nurse Note REVIEW OF SYSTEMS: General: [...] Lacey Richmond LPN documented in this encounter [facility] 08-29-2023 Telephone encounter Note Per Dr. Gregory patient to have left stereo breast biopsy. Per protocol email sent to [facility] contacts to have radiologist review and call patient to schedule accordingly. Patient aware of steps needed to be completed prior to scheduling. Patient given my direct line for any further assistance Shannan Corrigan Dye Line Operator [facility] 08-29-[address] Gregory patient to have left stereo breast biopsy. Per protocol email sent to [facility] contacts to have radiologist review and call patient to schedule accordingly. Patient aware of steps needed to be completed prior to scheduling. Patient given my direct line for any further assistance Shannan Corrigan Dye Line Operator documented in this encounter [facility] 08-22-2023 History of Present illness Narrative Radiology [...] PATIENT PRESENTS WITH AN IMPLANTABLE OR ATTACHED ABALONE SHELLER: No RADIOLOGY DEPARTMENT: Ultrasound PERIPHERAL IV DATA: Not applicable SIGNED BY: Izzy Andrea RDMS RVT August 22, 2023 3:09 PM documented in this encounter [facility] 08-22-2023 History of Present illness Narrative Radiology [...] PATIENT PRESENTS WITH AN IMPLANTABLE OR ATTACHED ABALONE SHELLER: No RADIOLOGY DEPARTMENT: Mammography PERIPHERAL IV DATA: Not applicable SIGNED BY: Alf Olivero Kevin August 22, 2023 7:59 AM documented in this encounter [facility] 08-22-2023 Miscellaneous Notes Benign findings left, biopsy recommended on right. Has general surgery appointment scheduled in August. documented in this encounter [facility] 08-22-2023 Progress note Formatting of t his note might be different from the original. Benign findings left, biopsy recommended on right. Has general surgery appointment scheduled in August. [facility] 08-10-2023 Telephone encounter Note Patient returned call and went over notes below from Angélica Pulido MIDDLEWARE DEVELOPER with understanding. Aware iron rx sent to pharmacy. [facility] 08-10-2023 Miscellaneous Notes Patient returned call and went over notes below from Angélica Pulido MIDDLEWARE DEVELOPER with understanding. Aware iron rx sent to [...] message. Pt voices understanding. Will come and cloth picker stool card this week. Patient says she has been noticing more fatigue recently. If pharmacy needed, uses [facility] in [place]. Phoned patient left message to return call [...] 1.00 - 4.00 k/uL 1.61 1.79 1.65 [place]% % 8.1 9.2 8.1 Abs [place] <0.87 k/uL 0.52 0.71 0.65 Eosin% % [...] Low (H) High documented in this encounter [facility] 08-10-2023 Telephone encounter Note No answer. Left message for patient to call office and ask to speak to a nurse. [facility] 08-10-2023 Telephone encounter Note Recommend bringing in the fecal occult blood test at her earliest convenience. Then start taking iron every other day. Taking with vitamin C can help with absorption. May cause constipation so would add Colace if needed while taking this. [facility] 08-09-2023 Telephone encounter Note Pt called and is notified of results and given providers message. Pt voices understanding. Will come and cloth picker stool card this week. Patient says she has been noticing more fatigue recently. If pharmacy needed, uses [facility] in [place]. [facility] 08-08-2023 Telephone encounter Note Phoned patient left message to return call and ask to speak to a nurse. T [facility] 08-08-2023 Telephone encounter Note Please let her [...] 1.00 - 4.00 k/uL 1.61 1.79 1.65 [place]% % 8.1 9.2 8.1 Abs [place] <0.87 k/uL 0.52 0.71 0.65 Eosin% % [...] 4.470 (H) Legend: (L) Low (H) High [facility] 08-04-2023 Telephone encounter Note No answer. Left providers message and ask patient to call office and ask to speak to a nurse with any questions or concerns [facility] 08-04-2023 Miscellaneous Notes No answer. Left providers message and ask patient to call office and ask to speak to a nurse with any questions or concerns ----- Message from Angélica Pulido APRN.STOCK BLENDER sent at 08/03/2023 4:22 PM EDT ----- Please let her know that BMD shows normal bone density. documented in this encounter [facility] 08-04-2023 Telephone encounter Note ----- Message from Angélica Pulido APRN.STOCK BLENDER sent at 08/03/2023 4:22 PM EDT ----- Please let her know that BMD shows normal bone density. [facility] 08-02-2023 Telephone encounter Note Patient notified of results and provider's instructions. Patient verbalizes understanding. Reny Brunson RN [facility] 08-02-2023 Miscellaneous Notes Patient notified of results and provider's instructions. Patient verbalizes understanding. Reny Brunson RN Left a message for pt to call the office and ask to speak to a nurse. Mara Gimenez LPN ----- Message from Angélica Pulido APRN.STOCK BLENDER sent at 07/30/2023 11:57 AM EDT ----- Please let patient know that additional imaging recommended. Please schedule diagnostic mammograms and ultrasound. documented in this encounter [facility] 07-31-2023 Telephone encounter Note Left a message for pt to call the office and ask to speak to a nurse. Mara Gimenez LPN [facility] 07-31-2023 Telephone encounter Note ----- Message from Angélica Pulido APRN.STOCK BLENDER sent at 07/30/2023 11:57 AM EDT ----- Please let patient know that additional imaging recommended. Please schedule diagnostic mammograms and ultrasound. [facility] 07-28-2023 Note Formatting of this n ote might be different from the original. July 28, 2023 PID: [id number] Alberto Rodriguez [address] [place] [id number] Dear Ms. Rodriguez, Your recent breast imaging [...] who ordered/prescribed your screening mammogram: Please call [phone] or EXT: [id number] to schedule an appointment for your additional [...] and reports are kept on file at [facility] as part of your permanent medical record, and are available for your continuing care. Thank you for allowing us to help in meeting your health care needs. Sincerely, Dr. Hines Interpreting Radiologist [facility] (Additional imaging) [facility] 07-28-2023 Miscellaneous Notes July 28, 2023 PID: [id number] Alberto Rodriguez [address] [place] [id number] Dear Ms. Rodriguez, Your recent breast imaging [...] who ordered/prescribed your screening mammogram: Please call [phone] or EXT: [id number] to schedule an appointment for your additional [...] and reports are kept on file at [facility] as part of your permanent medical record, and are available for your continuing care. Thank you for allowing us to help in meeting your health care needs. Sincerely, Dr. Hines Interpreting Radiologist [facility] (Additional imaging) documented in this encounter [facility] 07-27-2023 History of Present illness Narrative Radiology [...] PATIENT PRESENTS WITH AN IMPLANTABLE OR ATTACHED ABALONE SHELLER: No RADIOLOGY DEPARTMENT: Mammography PERIPHERAL IV DATA: Not applicable SIGNED BY: Kota Allan [employer] Kevin July 27, 2023 12:56 PM documented in this encounter [facility] 07-27-2023 History of Present illness Narrative Radiology [...] PATIENT PRESENTS WITH AN IMPLANTABLE OR ATTACHED ABALONE SHELLER: No RADIOLOGY DEPARTMENT: Bone Density PERIPHERAL IV DATA: Not applicable SIGNED BY: RT Robert(R) July 27, 2023 12:21 PM documented in this encounter [facility] 07-21-2023 Telephone encounter Note Patient has been [...] Please advise. Thank you. Eddie Fuentes RN. [facility] 07-21-2023 Miscellaneous Notes Patient has been identified [...] Eddie Fuentes RN. documented in this encounter [facility] 07-11-2023 Instructions Angélica Pulido APRN.STOCK BLENDER - 07/11/2023 10:57 AM EDT BONE MINERAL [...] usual activities immediately. documented in this encounter [facility] 07-11-2023 History of Present illness Narrative SUBJECTIVE: [...] IF UNABLE, PLEASE REFER TO [facility] AT [facility]. DX: EDEMA multivitamin tablet Take 1 tablet [...] 1.00 - 4.00 k/uL 1.46 1.61 1.79 [place]% % 10.5 8.1 9.2 Abs [place] <0.87 k/uL 0.53 0.52 0.71 Eosin% % [...] 6 mo follow up MD Angélica Fowler APRN.STOCK BLENDER Medical Decision Making: Problems: Moderate: 2+ stable chronic illnesses Risk: Moderate: Drug management Medical Decision Making Level: 4 - Moderate , documented in this encounter [facility] 02-07-2023 History of Present illness Narrative Alberto Rodriguez is identified through a medication adherence outreach initiative based on pharmacy claims data from [employer] (insurer) for Statin medication(s). Patient is reviewed [...] Santizo Jhonny Pharm-T documented in this encounter [facility] 01-13-2023 Miscellaneous Notes Patient notified of results. [...] Ratio <2.54 1.25 documented in this encounter [facility] 01-05-2023 Instructions Angélica Pulido APRN.CNS - 01/05/2023 [...] and back pain. documented in this encounter [facility] 01-05-2023 History of Present illness Narrative SUBJECTIVE: [...] IF UNABLE, PLEASE REFER TO [facility] AT [facility]. DX: EDEMA amLODIPine (NORVASC) 2.5 mg tablet [...] 1.00 - 4.00 k/uL 1.46 1.61 1.79 [place]% % 10.5 8.1 9.2 Abs [place] <0.87 k/uL 0.53 0.52 0.71 Eosin% % [...] - Moderate , documented in this encounter [facility] 09-30-2022 Instructions Angélica Pulido APRN.CNS - 09/30/2022 1:07 PM EDT Check labs before your next visit in 3 months documented in this encounter [facility] 09-30-2022 History of Present illness Narrative SUBJECTIVE: [...] IF UNABLE, PLEASE REFER TO [facility] AT [facility]. DX: EDEMA multivitamin tablet Take 1 tablet [...] 4 - Moderate, documented in this encounter [facility] 09-30-2022 Miscellaneous Notes Patient has been identified [...] Rashmi Chandra LPN documented in this encounter [facility] 08-23-2022 Miscellaneous Notes Patient has been identified [...] patient. Patricia Sal documented in this encounter [facility] 08-02-2022 History of Present illness Narrative Episode [...] LEVEL OF FUNCTION: TREATMENT: Therapeutic Exercise: 1: [employer] seat #9 x6 minutes without resistance [...] 3x15 each 8: stirring the pot at [facility] 1 plate x10 CW and x10 CCW facing both lateral directions 9: seated scapular retraction at Hoist machine 1 plate 2x10 10: seated pull downs at [facility], nidia overhead elbows extended throughout 1 plate [...] Nick Cooper PT documented in this encounter [facility] 07-27-2022 History of Present illness Narrative Episode [...] Nick Cooper PT documented in this encounter [facility] 07-19-2022 History of Present illness Narrative Episode [...] Patient will be able to tolerate 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 Patient will increase strength of core/postural muscles to WFL to allow for improved position and activity tolerance. Patient Goals: decrease pain and stay active Planned Interventions, Frequency, and Duration: Current Frequency: 2x/week Duration: 5 weeks Total Number of Visits Planned: 10 Planned Treatment Interventions: Therapeutic exercise (64337), Neuromuscular re-education (84394), Manual therapy (25235), Therapeutic activities (69522), Self-fpc management (66289), Patient/Family/Caregiver Education, Body Mechanics Training, General Conditioning [...] especially after prolonged sitting. 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 She also reports [...] Nick Cooper PT documented in this encounter [facility] 07-11-2022 Miscellaneous Notes Patient calls and notified of results and providers instructions. Patient verbalizes understanding. Transferred to schedule. Kristen Jorgensen RN Please let patient know her hip xray did show moderate to severe arthritic changes. Physical therapy should help with the pain, and I am putting in an orthopedic consult for further evaluation. Thank you Breanna Ortiz APRN.MACHINE MAINTENANCE SERVICER documented in this encounter [facility] 07-08-2022 History of Present illness Narrative Radiology [...] 2022 3:06 PM documented in this encounter [facility] 07-08-2022 History of Present illness Narrative CC: [...] IF UNABLE, PLEASE REFER TO CHUNG AT [facility]. DX: EDEMA multivitamin tablet Take 1 tablet [...] Breanna Ortiz APRN.CNP documented in this encounter [facility] 06-07-2022 Miscellaneous Notes Patient has been identified [...] Kristen Jorgensen RN documented in this encounter [facility] 04-14-2022 History of Present illness Narrative Reason [...] has soup etc. 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 Would like covid [...] immunization - ICD9: V03.89, ICD10: Z23 - PFIZER-NeronoteNTDioGenix COVID-19 BIVALENT BOOSTER VACCINE, AGE 12+ YR 3. Pure hypercholesterolemia - ICD9: 272.0, ICD10: E78.00 Cont the same medication as she is tolerating it 4. PHN (postherpetic neuralgia) - ICD9: 053.19, ICD10: B02.29 Stable on gabapentin 5. Chronic venous insufficiency - ICD9: 459.81, ICD10: I87.2 Using her socks regularly and that helps Ramandeep Alvarez MD documented in this encounter [facility] 01-21-2022 Miscellaneous Notes Patient returned call and said she volunteers at [facility] and needs proof that she had [...] patient to advise. documented in this encounter [facility] 12-22-2021 Miscellaneous Notes PATIENT NOTIFIED OF SAME. [...] Breanna Ortiz APRN.CNP documented in this encounter [facility] 11-24-2021 Miscellaneous Notes Noted and agree Pt returned call & states she was able to check her BP at home & it was 180/111, pt still has a headache. Per Dr Alvarez, pt was instructed to be seen in ED. Pt states understanding & will go to [facility] ED now. Carol Arredondo LPN Patient returned call and is at home now. She has no blood pressure monitor at home. She volunteers at the [facility] and was there when her bp was elevated. Patient plans to come to appt with MIDDLEWARE DEVELOPER this afternoon. Pt called to report her BP is elevated at 173/101 his am & she has a bad headache. Pt was scheduled for an appt this afternoon. Per Dr Alvarez have pt gian BP in 1 hr & call in with result. Left message to call office. 11/24/2021 9:40 AM Carol Arredondo LPN documented in this encounter [facility] 10-08-2021 Miscellaneous Notes Patient has been identified [...] 10/08/2021 2:15 PM EDTdocumented in this encounter [facility] 09-30-2021 Miscellaneous Notes covermymed response. ALBERTO RODRIGUEZ Giang: [id number] Need help? Call us at Outcome Additional Information Required Available without authorization. DrugEstradiol 1MG tablets [facility] Medicare Electronic PA Form (2016 [facility]) rec'd covermymed PA for estradiol. Requested electronic PA for this. documented in this encounter [facility] 07-30-2021 Miscellaneous Notes Patient notified and voiced her understanding. Left message for return call. ----- Message from Ramandeep Alvarez MD sent at 07/29/2021 3:09 PM EDT ----- Normal stress test documented in this encounter [facility] 07-29-2021 Note HNO ID: [id number] Author: JESICA Holder Service: Radiology Author Type: [...] STATUS: Discontinued PROCEDURE TYPE: NM Stress: 13.2mCi [id number] was administered IV for Rest Imaging at 8:30 by JESICA Holder. 31 mCi [id number] was administered IV for Stress Imaging at 10:15 by JESICA Holder. PATIENT DISCHARGED TO: Ambulatory patient, left [place] department area. A Diagnostic radioactive procedure has taken place, with no further precautions necessary other than routine body substance precautions. More information regarding radiation safety can be found using this link: [email or web address] [email or web address] SIGNATURE: Jayn Henry [facility] PATIENT NAME: Alberto Rodriguez DATE: July 29, 2021 TIME: 11:08 AM PAGER/CONTACT #: [facility] 07-28-2021 Miscellaneous Notes Left message regarding reminder for stress test tomorrow and given instructions. documented in this encounter [facility] 07-27-2021 Miscellaneous Notes [employer] calling requesting copy of CT Chest results to be faxed to [phone]. Printed report from 07/09/2021 and faxed as requested. documented in this encounter [facility] 07-17-2021 Miscellaneous Notes Patient scheduled. Reny Lima [...] Fadia Beltran RN documented in this encounter [facility] 07-09-2021 Miscellaneous Notes Patient returned call and went over results from Kylee Dash NP with understanding. left with patient to contact office for results Kaylynn Salinas Ma Please let Alberto that her creatinine level is good, no concerns. Carie Dash APRN.SANTO documented in this encounter [facility] 07-09-2021 History of Present illness Narrative Radiology [...] TIME: 12:54 PM documented in this encounter [facility] 07-08-2021 Miscellaneous Notes [employer] calls to check on status of faxed request for most updated visit note. Call placed to patient to verify that request was made by patient. Patient states it is ok to fax 06/18 OV note as requested. Patient is trying get life insurance. Faxed to [phone] per request. Kristen Jorgensen RN documented in this encounter [facility] 07-08-2021 Miscellaneous Notes Patient returned call and went over results, notes from Breanna Ortiz MIDDLEWARE DEVELOPER with understanding. Aware has lab test that needs done before CT. Assisted with transfer to drop worker to get CT appt set up. Left [...] Breanna Ortiz APRN.SANTO documented in this encounter [facility] 07-03-2021 Miscellaneous Notes noted Pt called and [...] faxed to : [employer] FAX# [phone]. Please call patient once that has been completed. Thank you. documented in this encounter [facility] 07-01-2021 Miscellaneous Notes July 01, 2021 PID: [id number] Alberto Rodriguez [address] [place] [address] Dear Ms. Rodriguez, We are pleased to [...] report will be kept on file at [facility] as part of your permanent medical record and are available for your continuing care. Thank you for allowing us to help in meeting your health care needs. Sincerely, Dr. Saba Interpreting Radiologist [facility] (Normal over 40) documented in this encounter [facility] 07-01-2021 History of Present illness Narrative Radiology [...] DATA: Not applicable SIGNED BY: Kota Allan [employer] Kevin July 01, 2021 12:56 PM documented in this encounter [facility] 06-18-2021 History of Present illness Narrative Medicare [...] time. List of current specialists seen: Eye- [facility] exam End of Live Planning [...] diet of 1000 mg/day for under 50, 3411-6129 mg/day for 50+ 2. Hot flashes - [...] ARMANDO Alvarez MD documented in this encounter [facility] 06-14-2012 History of Past i llness Narrative Problem Noted Date Resolved Date Postherpetic neuralgia 06/14/2012 5 Hot flash, menopausal 06/21/2011 06/27/2014 Dysuria 08/16/2007 06/27/2014 Urinary tract infection, site not specified 12/30/2015 documented as of this encounter (statuses as of 06/18/2021) [facility] History of Past illness Narrative* Problem Noted Date Resolved Date Postherpetic neuralgia 06/14/2012 5 Hot flash, menopausal 06/21/2011 06/27/2014 Dysuria 08/16/2007 06/27/2014 Urinary tract infection, site not specified 12/30/2015 documented as of this encounter (statuses as of 07/02/2021) [facility] History of Past illness Narrative* Problem Noted Date Resolved Date Postherpetic neuralgia 06/14/2012 5 Hot flash, menopausal 06/21/2011 06/27/2014 Dysuria 08/16/2007 06/27/2014 Urinary tract infection, site not specified 12/30/2015 documented as of this encounter (statuses as of 07/03/2021) [facility] History of Past illness Narrative* Problem Noted Date Resolved Date Postherpetic neuralgia 06/14/2012 5 Hot flash, menopausal 06/21/2011 06/27/2014 Dysuria 08/16/2007 06/27/2014 Urinary tract infection, site not specified 12/30/2015 documented as of this encounter (statuses as of 07/05/2021) [facility] History of Past illness Narrative* Problem Noted Date Resolved Date Postherpetic neuralgia 06/14/2012 5 Hot flash, menopausal 06/21/2011 06/27/2014 Dysuria 08/16/2007 06/27/2014 Urinary tract infection, site not specified 12/30/2015 documented as of this encounter (statuses as of 07/08/2021) [address]-2013 History of Past illness Narrative* Problem Noted Date Resolved Date Postherpetic neuralgia 06/14/2012 5 Hot flash, menopausal 06/21/2011 06/27/2014 Dysuria 08/16/2007 06/27/2014 Urinary tract infection, site not specified 12/30/2015 documented as of this encounter (statuses as of 07/08/2021) [facility] History of Past illness Narrative* Problem Noted Date Resolved Date Postherpetic neuralgia 06/14/2012 5 Hot flash, menopausal 06/21/2011 06/27/2014 Dysuria 08/16/2007 06/27/2014 Urinary tract infection, site not specified 12/30/2015 documented as of this encounter (statuses as of 07/09/2021) [facility] History of Past illness Narrative* Problem Noted Date Resolved Date Postherpetic neuralgia 06/14/2012 5 Hot flash, menopausal 06/21/2011 06/27/2014 Dysuria 08/16/2007 06/27/2014 Urinary tract infection, site not specified 12/30/2015 documented as of this encounter (statuses as of 07/10/2021) [facility] History of Past illness Narrative* Problem Noted Date Resolved Date Postherpetic neuralgia 06/14/2012 5 Hot flash, menopausal 06/21/2011 06/27/2014 Dysuria 08/16/2007 06/27/2014 Urinary tract infection, site not specified 12/30/2015 documented as of this encounter (statuses as of 07/17/2021) [place] [address]-21-2013 History of Past illness Narrative* Problem Noted Date Resolved Date Postherpetic neuralgia 06/14/2012 5 Hot flash, menopausal 06/21/2011 06/27/2014 Dysuria 08/16/2007 06/27/2014 Urinary tract infection, site not specified 12/30/2015 documented as of this encounter (statuses as of 07/27/2021) [facility] History of Past illness Narrative* Problem Noted Date Resolved Date Postherpetic neuralgia 06/14/2012 5 Hot flash, menopausal 06/21/2011 06/27/2014 Dysuria 08/16/2007 06/27/2014 Urinary tract infection, site not specified 12/30/2015 documented as of this encounter (statuses as of 07/28/2021) [address]2013 History of Past illness Narrative* Problem Noted Date Resolved Date Postherpetic neuralgia 06/14/2012 5 Hot flash, menopausal 06/21/2011 06/27/2014 Dysuria 08/16/2007 06/27/2014 Urinary tract infection, site not specified 12/30/2015 documented as of this encounter (statuses as of 07/30/2021) [facility] History of Past illness Narrative* Problem Noted Date Resolved Date Postherpetic neuralgia 06/14/2012 5 Hot flash, menopausal 06/21/2011 06/27/2014 Dysuria 08/16/2007 06/27/2014 Urinary tract infection, site not specified 12/30/2015 documented as of this encounter (statuses as of 07/30/2021) [facility] History of Past illness Narrative* Problem Noted Date Resolved Date Postherpetic neuralgia 06/14/2012 5 Hot flash, menopausal 06/21/2011 06/27/2014 Dysuria 08/16/2007 06/27/2014 Urinary tract infection, site not specified 12/30/2015 documented as of this encounter (statuses as of 09/30/2021) [facility] History of Past illness Narrative* Problem Noted Date Resolved Date Postherpetic neuralgia 06/14/2012 5 Hot flash, menopausal 06/21/2011 06/27/2014 Dysuria 08/16/2007 06/27/2014 Urinary tract infection, site not specified 12/30/2015 documented as of this encounter (statuses as of 10/08/2021) [facility] History of Past illness Narrative* Problem Noted Date Resolved Date Postherpetic neuralgia 06/14/2012 5 Hot flash, menopausal 06/21/2011 06/27/2014 Dysuria 08/16/2007 06/27/2014 Urinary tract infection, site not specified 12/30/2015 documented as of this encounter (statuses as of 11/24/2021) [address]2013 History of Past illness Narrative* Problem Noted Date Resolved Date Postherpetic neuralgia 06/14/2012 5 Hot flash, menopausal 06/21/2011 06/27/2014 Dysuria 08/16/2007 06/27/2014 Urinary tract infection, site not specified 12/30/2015 documented as of this encounter (statuses as of 12/22/2021) [facility] History of Past illness Narrative* Problem Noted Date Resolved Date Postherpetic neuralgia 06/14/2012 5 Hot flash, menopausal 06/21/2011 06/27/2014 Dysuria 08/16/2007 06/27/2014 Urinary tract infection, site not specified 12/30/2015 documented as of this encounter (statuses as of 01/21/2022) [facility] History of Past illness Narrative* Problem Noted Date Resolved Date Postherpetic neuralgia 06/14/2012 5 Hot flash, menopausal 06/21/2011 06/27/2014 Dysuria 08/16/2007 06/27/2014 Urinary tract infection, site not specified 12/30/2015 documented as of this encounter (statuses as of 04/14/2022) [facility] History of Past illness Narrative* Problem Noted Date Resolved Date Postherpetic neuralgia 06/14/2012 5 Hot flash, menopausal 06/21/2011 06/27/2014 Dysuria 08/16/2007 06/27/2014 Urinary tract infection, site not specified 12/30/2015 documented as of this encounter (statuses as of 06/07/2022) [place] [address]21-2013 History of Past illness Narrative* Problem Noted Date Resolved Date Postherpetic neuralgia 06/14/2012 5 Hot flash, menopausal 06/21/2011 06/27/2014 Dysuria 08/16/2007 06/27/2014 Urinary tract infection, site not specified 12/30/2015 documented as of this encounter (statuses as of 07/09/2022) [facility] History of Past illness Narrative* Problem Noted Date Resolved Date Postherpetic neuralgia 06/14/2012 5 Hot flash, menopausal 06/21/2011 06/27/2014 Dysuria 08/16/2007 06/27/2014 Urinary tract infection, site not specified 12/30/2015 documented as of this encounter (statuses as of 07/11/2022) [address]2013 History of Past illness Narrative* Problem Noted Date Resolved Date Postherpetic neuralgia 06/14/2012 5 Hot flash, menopausal 06/21/2011 06/27/2014 Dysuria 08/16/2007 06/27/2014 Urinary tract infection, site not specified 12/30/2015 documented as of this encounter (statuses as of 07/20/2022) [facility] History of Past illness Narrative* Problem Noted Date Resolved Date Postherpetic neuralgia 06/14/2012 5 Hot flash, menopausal 06/21/2011 06/27/2014 Dysuria 08/16/2007 06/27/2014 Urinary tract infection, site not specified 12/30/2015 documented as of this encounter (statuses as of 07/28/2022) [facility] History of Past illness Narrative* Problem Noted Date Resolved Date Postherpetic neuralgia 06/14/2012 5 Hot flash, menopausal 06/21/2011 06/27/2014 Dysuria 08/16/2007 06/27/2014 Urinary tract infection, site not specified 12/30/2015 documented as of this encounter (statuses as of 08/02/2022) [facility] History of Past illness Narrative* Problem Noted Date Resolved Date Postherpetic neuralgia 06/14/2012 5 Hot flash, menopausal 06/21/2011 06/27/2014 Dysuria 08/16/2007 06/27/2014 Urinary tract infection, site not specified 12/30/2015 documented as of this encounter (statuses as of 08/25/2022) [facility] History of Past illness Narrative* Problem Noted Date Resolved Date Postherpetic neuralgia 06/14/2012 5 Hot flash, menopausal 06/21/2011 06/27/2014 Dysuria 08/16/2007 06/27/2014 Urinary tract infection, site not specified 12/30/2015 documented as of this encounter (statuses as of 09/30/2022) [facility] History of Past illness Narrative* Problem Noted Date Resolved Date Postherpetic neuralgia 06/14/2012 5 Hot flash, menopausal 06/21/2011 06/27/2014 Dysuria 08/16/2007 06/27/2014 Urinary tract infection, site not specified 12/30/2015 documented as of this encounter (statuses as of 09/30/2022) [facility] History of Past illness Narrative* Problem Noted Date Diagnosed Date Resolved Date Postherpetic neuralgia 06/14/201206/27 Hot flash, menopausal 06/21/20112014 Dysuria 08/16/2007 06/27/2014 Urinary tract infection, site not specified 12/30/2015 documented as of this encounter (statuses as of 01/05/2023) [facility] History of Past illness Narrative* Problem Noted Date Diagnosed Date Resolved Date Postherpetic neuralgia 06/14/201206/27 Hot flash, menopausal 06/21/20112014 Dysuria 08/16/2007 06/27/2014 Urinary tract infection, site not specified 12/30/2015 documented as of this encounter (statuses as of 01/13/2023) [facility] History of Past illness Narrative* Problem Noted Date Diagnosed Date Resolved Date Postherpetic neuralgia 06/14/201206/27 Hot flash, menopausal 06/21/20112014 Dysuria 08/16/2007 06/27/2014 Urinary tract infection, site not specified 12/30/2015 documented as of this encounter (statuses as of 02/08/2023) [facility] History of Past illness Narrative* Problem Noted Date Diagnosed Date Resolved Date Postherpetic neuralgia 06/14/201206/27 Hot flash, menopausal 06/21/20112014 Dysuria 08/16/2007 06/27/2014 Urinary tract infection, site not specified 12/30/2015 documented as of this encounter (statuses as of 07/12/2023) [facility] note* Diagnosis Medicare annual wellness visit, subsequent- Primary Routine general medical examination at a health care facility Hot flashes Symptomatic menopausal or female climacteric states Insomnia, unspecified type Pure hypercholesterolemia Essential hypertension Unspecified essential hypertension Breast cancer screening by mammogram [facility] Diagnosis Breast cancer screening by mammogram [facility] in [facility] Diagnosis Leg swelling- Primary Swelling of limb [facility] Diagnosis Back pain, unspecified back location, unspecified back pain laterality, unspecified chronicity- Primary Chest pain, unspecified type Elevated d-dimer Abnormal coagulation profile [facility] Diagnosis Back pain, unspecified back location, unspecified back pain laterality, unspecified chronicity Chest pain, unspecified type Elevated d-dimer Abnormal coagulation profile [facility] Diagnosis Encounter for screening for cardiovascular disorders- Primary Screening for other and unspecified cardiovascular conditions [facility] Diagnosis Insomnia, unspecified type [facility] Diagnosis Essential hypertension- Primary Unspecified essential hypertension Encounter for immunization Need for other specified prophylactic vaccination against single bacterial disease Pure hypercholesterolemia PHN (postherpetic neuralgia) Herpes zoster with other nervous system complications Chronic venous insufficiency Unspecified venous (peripheral) insufficiency [facility] Diagnosis Diastolic dysfunction Heart disease, unspecified [facility] Diagnosis Dermatitis- Primary Contact dermatitis and other eczema, due to unspecified cause Chronic left hip pain Pain in joint, pelvic region and thigh [facility] Diagnosis Chronic left hip pain- Primary Pain in joint, pelvic region and thigh [facility] Diagnosis Chronic left hip pain Pain in joint, pelvic region and thigh Pain of left hip joint [facility] Diagnosis Pain of left hip joint- Primary [facility] Diagnosis Pain of left hip joint- Primary [facility] Diagnosis Insomnia, unspecified type Hot flashes Symptomatic menopausal or female climacteric states Pure hypercholesterolemia [facility]* Diagnosis Diastolic dysfunction Heart disease, unspecified documented in [facility] Diagnosis Feared condition not demonstrated- Primary Person with feared complaint in whom no diagnosis was made History of shingles Personal history of other infectious and parasitic disease Gastroesophageal reflux disease, unspecified whether esophagitis present Pure hypercholesterolemia documented in this encounter [facility] Diagnosis Essential hypertension- Primary Unspecified essential hypertension Post herpetic neuralgia Herpes zoster with other nervous system complications Diastolic dysfunction Heart disease, unspecified Pain of left hip joint PHN (postherpetic neuralgia) Herpes zoster with other nervous system complications Gastroesophageal reflux disease, unspecified whether esophagitis present Encounter for screening mammogram for breast cancer documented in this encounter [facility] note* Diagnosis Iron deficiency anemia, unspecified iron deficiency anemia type- Primary Pure hypercholesterolemia Gastroesophageal reflux disease, unspecified whether esophagitis present Essential hypertension Unspecified essential hypertension Encounter for screening for diabetes mellitus Screening for diabetes mellitus Hot flashes Symptomatic menopausal or female climacteric states Insomnia, unspecified type Encounter for screening for osteoporosis Special screening for osteoporosis Asymptomatic postmenopausal status [facility] Diagnosis Post herpetic neuralgia Herpes zoster with other nervous system complications documented in this encounter [facility] Diagnosis Encounter for screening for osteoporosis Special screening for osteoporosis Asymptomatic postmenopausal status documented in this encounter [facility] Diagnosis Encounter for screening mammogram for breast cancer documented in this encounter [facility] note* Diagnosis Abnormal mammogram of both breasts- Primary documented in this encounter [facility] Diagnosis Iron deficiency anemia, unspecified iron deficiency anemia type- Primary [facility] Diagnosis Abnormal mammogram of both breasts [facility] Diagnosis Abnormal mammogram of both breasts [facility] Diagnosis Abnormal finding on breast imaging- Primary Other (abnormal) findings on radiological examination of breast documented in this encounter [facility] Diagnosis Abnormal mammogram- Primary Abnormal mammogram, unspecified documented in this encounter [facility] Diagnosis Rash and nonspecific skin eruption- Primary Rash and other nonspecific skin eruption documented in this encounter [facility] note* Diagnosis Abnormal mammogram Abnormal mammogram, unspecified [facility] Diagnosis Malignant neoplasm of upper-outer quadrant of right breast in female, estrogen receptor positive (HCC)- Primary documented in this encounter [facility] Diagnosis Malignant neoplasm of upper-outer quadrant of right breast in female, estrogen receptor positive (HCC)- Primary Pure hypercholesterolemia Essential hypertension Unspecified essential hypertension Malignant neoplasm of upper-outer quadrant of right breast in female, estrogen receptor positive (HCC) documented in this encounter [facility] Diagnosis Malignant neoplasm of upper-outer quadrant of right breast in female, estrogen receptor positive (HCC) [facility] Diagnosis Malignant neoplasm of upper-outer quadrant of right breast in female, estrogen receptor positive (HCC) [facility] Diagnosis Breast disorder Unspecified breast disorder [facility] Diagnosis Mass of left breast, unspecified quadrant Abnormal ultrasound of breast Other (abnormal) findings on radiological examination of breast documented in this encounter [facility] Diagnosis Abnormal ultrasound of breast Other (abnormal) findings on radiological examination of breast Abnormal ultrasound of breast Other (abnormal) findings on radiological examination of breast documented [facility] Diagnosis Abnormal MRI, breast- Primary Other (abnormal) findings on radiological examination of breast Abnormal ultrasound of breast Other (abnormal) findings on radiological examination of breast documented [facility] Diagnosis Malignant neoplasm of upper-outer quadrant of right breast in female, estrogen receptor positive (HCC)- Primary Anemia, unspecified type Abnormal ultrasound of breast Other (abnormal) findings on radiological examination of breast [facility] Diagnosis Malignant neoplasm of upper-outer quadrant of right breast in female, estrogen receptor positive (HCC)- Primary Abnormal ultrasound of breast Other (abnormal) findings on radiological examination of breast [facility] Diagnosis Abnormal MRI, breast Other (abnormal) findings on radiological examination of breast documented [facility] Diagnosis Abnormal finding on breast imaging- Primary Other (abnormal) findings on radiological examination of breast [facility] Diagnosis Pure hypercholesterolemia Insomnia, unspecified type Malignant neoplasm of upper-outer quadrant of right breast in female, 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 Denies any deficits. [...] 114/70 06/18/2021 114/56 documented in this encounter [facility] note* Diagnosis Pre-operative examination- Primary Preoperative [...] of left breast documented in this encounter [facility] note* Diagnosis Pre-operative examination- Primary Preoperative [...] of left breast documented in this encounter [facility] note* Diagnosis Pre-operative examination- Primary Preoperative [...] of left breast documented [facility] this [facility] Diagnosis Chronic left [...] unspecified, unspecified cause documented in this encounter [facility] note* Diagnosis Post-op pain- Primary Other [...] unspecified, unspecified cause [facility] Diagnosis Pre-operative examination- Primary [...] receptor positive (HCC) documented [facility] this [facility] Diagnosis Breast disorder- Primary Unspecified breast disorder documented in this encounter [facility] note* Diagnosis Pre-operative examination- Primary Preoperative [...] positive (HCC)- Primary documented in this encounter [facility] note* Diagnosis Pre-operative examination- Primary Preoperative [...] Heart disease, unspecified documented in this encounter [facility] note* Diagnosis Pre-operative examination- Primary Preoperative [...] nervous system complications documented [facility] this [facility] Diagnosis Pre-operative examination- [...] positive (HCC)- Primary documented in this encounter [facility] note* Diagnosis Pre-operative examination- Primary Preoperative [...] cause Pure hypercholesterolemia documented in this encounter [facility] note* Diagnosis Pre-operative examination- Primary Preoperative [...] positive (HCC)- Primary documented in this encounter [facility] note* Diagnosis Pre-operative examination- Primary Preoperative [...] of left breast documented in this encounter [facility] note* Diagnosis Pre-operative examination- Primary Preoperative [...] breast (HCC)- Primary documented in this encounter [facility] note* Diagnosis Pre-operative examination- Primary Preoperative [...] nervous system complications documented in this encounter [facility] for referral (narrative)* Diagnostic Procedure Only (Routine) - Authorized Specialty Diagnoses / Procedures Referred By Lupe montanez Referred To Contact BR IMAGING Diagnoses Breast cancer screening by mammogram Procedures VALERI SCREENING W ARMANDO SCREENING DIGITAL BREAST TOMOSYNTHESIS BI SCREENING MAMMOGRAPHY BI 2-VIEW BREAST INC Ramandeep Baca MD [facility] [place] [address] Br Imaging [address] [place] [address] Referral ID Status Reason Start Date Expiration Date Visits Requested Visits Authorized [id number] Authorized Auto-Generat ed Referral 06/18/2021 07/18/2022 1 1 [facility] for referral (narrative)* Diagnostic Procedure Only (Routine) - Closed Specialty Diagnoses / Procedures Referred By Lupe montanez Referred To Contact BR IMAGING Diagnoses Breast cancer screening by mammogram Procedures VALERI SCREENING W ARMANDO SCREENING DIGITAL BREAST TOMOSYNTHESIS BI SCREENING MAMMOGRAPHY BI 2-VIEW BREAST INC Ramandeep Baca MD [address] [place] [address] Br Imaging [address] [address] Referral ID Status Reason Start Date Expiration Date V isits Requested Visits Authorized [id number] Closed Auto-Generate d Referral 06/18/2021 07/18/2022 1 1 [facility] for referral (narrative)* Diagnostic Procedure Only (Routine) - Authorized Specialty Diagnoses / Procedures Referred By Lupe montanez Referred To Contact MOLECULAR & FUNCTIONAL IMAGING Diagnoses Encounter for screening for cardiovascular disorders Procedures NM CARDIAC PERF STRESS/EXERCISE MYOCARDIAL SPECT MULTIPLE STUDIES Ramandeep Alvarez MD [address] [place] [address] Molecular & Functional Imaging [address] [place] [address] Referral ID Status Reason Start Date Expiration Date Visits Requested Visits Authorized [id number] Authorized Auto-Generat ed Referral 07/12/2021 08/11/2022 1 1 [facility] for referral (narrative)* Diagnostic Procedure Only (Routine) - Closed Specialty Diagnoses / Procedures Referred By Contac t Referred To Contact XR IMAGING Diagnoses Chronic left hip pain Procedures XR HIP GENERAL 3V PELV/AP/LAT LEFT RADEX HIP UNILATERAL WITH PELVIS 2-3 VIEWS Breanna Ortiz APRN.MACHINE MAINTENANCE SERVICER [address] [place] [address] Xr Imaging Referral ID Status Reason Start Date Expiration Date V isits Requested Visits Authorized [id number] Closed Auto-Generate d Referral 07/08/2022 08/07/2023 1 1 [facility] for referral (narrative)* Diagnostic Procedure Only (Routine) - Pending Review Specialty Diagnoses / Procedures Referred By Wendyac t Referred To Contact BR IMAGING Diagnoses Encounter for screening mammogram for breast cancer Procedures VALERI SCREENING W ARMANDO SCREENING DIGITAL BREAST TOMOSYNTHESIS BI SCREENING MAMMOGRAPHY BI 2-VIEW BREAST INC Angélica Vernon APRN.STOCK BLENDER [address] [place] [address] Br Imaging [address] [place] [address] Referral ID Status Reason Start Date Expiration Date Visits Requested Visits Authorized [id number] Pending Review Auto-Generat ed Referral 02/04/2024 1 1 * Diagnostic Procedure Only (Routine) - Pending Review Specialty Diagnoses / Procedures Referred By Contac t Referred To Contact BR IMAGING Diagnoses Encounter for screening mammogram for breast cancer Procedures VALERI SCREENING SCREENING MAMMOGRAPHY BI 2-VIEW BREAST INC CAD Angélica Pulido APRN.STOCK BLENDER [address] [place] [address] Br Imaging [address] [place] [address] Referral ID Status Reason Start Date Expiration Date Visits Requested Visits Authorized [id number] Pending Review Auto-Generat ed Referral 02/04/2024 1 1 [facility] for referral (narrative)* Diagnostic Procedure Only (Routine) - Authorized Specialty Diagnoses / Procedures Referred By Lupe t Referred To Contact XR IMAGING Diagnoses Encounter for screening for osteoporosis Asymptomatic postmenopausal status Procedures DXA-AXIAL SKELETON Angélica Pulido APRN.STOCK BLENDER [address] [place] [address] [place] [address] Referral ID Status Reason Start Date Expiration Date Visits Requested Visits Authorized [id number] Authorized Auto-Generat ed Referral 07/11/2023 08/09/2024 1 1 [facility] for referral (narrative)* Diagnostic Procedure Only (Routine) - Pending Review Specialty Diagnoses / Procedures Referred By Lupe montanez Referred To Contact BR IMAGING Diagnoses Abnormal mammogram of both breasts Procedures US BREAST LTD LEFT US BREAST UNI REAL TIME WITH IMAGE LIMITED Angélica Pulido APRN.STOCK BLENDER [address] [place] [address] Br Imaging [address] [place] [address] Referral ID Status Reason Start Date Expiration Date Visits Requested Visits Authorized [id number] Pending Review Auto-Generat ed Referral 07/30/2023 08/28/2024 1 1 * Diagnostic Procedure Only (Routine) - Pending Review Specialty Diagnoses / Procedures Referred By Lupe t Referred To Contact BR IMAGING Diagnoses Abnormal mammogram of both breasts Procedures US BREAST LTD RIGHT US BREAST UNI REAL TIME WITH IMAGE LIMITED Angélica Pulido APRN.STOCK BLENDER [address] [place] [address] Br Imaging [address] [place] [address] Referral ID Status Reason Start Date Expiration Date Visits Requested Visits Authorized [id number] Pending Review Auto-Generat ed Referral 07/30/2023 08/28/2024 1 1 * Diagnostic Procedure Only (Routine) - Pending Review Specialty Diagnoses / Procedures Referred By Lupe montanez Referred To Contact BR IMAGING Diagnoses Abnormal mammogram of both breasts Procedures VALERI DIAGNOSTIC BILATERAL DIAGNOSTIC MAMMOGRAPHY COMPUTER-AIDED DETCJ BI Angélica Pulido APRN.STOCK BLENDER [address] [place] [address] Br Imaging [address] [place] [address] Referral ID Status Reason Start Date Expiration Date Visits Requested Visits Authorized [id number] Pending Review Auto-Generat ed Referral 07/30/2023 08/28/2024 1 1 [facility] for referral (narrative)* Diagnostic Procedure Only (Routine) - Closed Specialty Diagnoses / Procedures Referred By Lupe montanez Referred To Contact BR IMAGING Diagnoses Abnormal mammogram of both breasts Procedures US BREAST LTD LEFT US BREAST UNI REAL TIME WITH IMAGE LIMITED Angélica Pulido APRN.STOCK BLENDER [address] [place] [address] Br Imaging [address] [place] [address] Referral ID Status Reason Start Date Expiration Date V isits Requested Visits Authorized [id number] Closed Auto-Generate d Referral 07/30/2023 08/28/2024 1 1 [facility] for referral (narrative)* Diagnostic Procedure Only (Routine) - Pending Review Specialty Diagnoses / Procedures Referred By Contac t Referred To Contact BR IMAGING Diagnoses Abnormal finding on breast imaging Procedures VALERI STEREO BX BREAST RIGHT BX BREAST W/DEVICE 1ST [facility] Riley Belcher MD [address] [address] Br Imaging [address] [place] [address] Referral ID Status Reason Start Date Expiration Date Visits Requested Visits Authorized [id number] Pending Review Auto-Generat ed Referral 08/29/2023 09/27/2024 1 1 [facility] for referral (narrative)* Diagnostic Procedure Only (Routine) - Pending Review Specialty Diagnoses / Procedures Referred By Lupe montanez Referred To Contact BR IMAGING Diagnoses Abnormal mammogram Procedures VALERI STEREO BX BREAST RIGHT BX BREAST W/DEVICE 1ST [facility] Ayo Montelongo MD [address] [place] [address] Br Imaging [address] [place] [address] Referral ID Status Reason Start Date Expiration Date Visits Requested Visits Authorized [id number] Pending Review Auto-Generat ed Referral 09/04/2023 10/03/2024 1 1 [facility] for referral (narrative)* Diagnostic Procedure Only (Routine) - Closed Specialty Diagnoses / Procedures Referred By Lupe montanez Referred To Contact BR IMAGING Diagnoses Abnormal mammogram Procedures VALERI STEREO BX BREAST RIGHT BX BREAST W/DEVICE 1ST [facility] Ayo Montelongo MD [address] [place] [address] Br Imaging [address] [place] [address] Referral ID Status Reason Start Date Expiration Date V isits Requested Visits Authorized [id number] Closed Auto-Generate d Referral 09/04/2023 10/03/2024 1 1 [facility] for referral (narrative)* Diagnostic Procedure Only (Routine) - Closed Specialty Diagnoses / Procedures [facility] To Contact BR IMAG[facility] Diagnoses Malignant neoplasm of upper-outer quadrant of right breast in female, estrogen receptor positive (HCC) Procedures US AXILLA ONLY RIGHT US LMTD JOINT/OTH NONVASC XTR STRUX R-T W/[place] [address] [place] [address] Br Imaging [address] [place] [id number] Referral ID Status Reason Start Date Expiration Date V isits Requested Visits Authorized [id number] Closed Auto-Generate d Referral 10/17/2023 11/15/2024 1 1 [facility] for referral (narrative)* Diagnostic Procedure Only (Routine) - Closed Specialty Diagnoses / Procedures [facility] Referred To Contact BR IMAGING Diagnoses Malignant neoplasm of upper-outer quadrant of right breast in female, estrogen receptor positive (HCC) Procedures US AXILLA ONLY RIGHT US LMTD JOINT/OTH NONVASC XTR STRUX R-T W/[place] [address] [place] [address] Br Imaging [address] [place] [id number] Referral ID Status Reason Start Date Expiration Date V isits Requested Visits Authorized [id number] Closed Auto-Generate d Referral 10/17/2023 11/15/2024 1 1 [facility] for referral (narrative)* Diagnostic Procedure Only (Routine) - Closed Specialty Diagnoses / Procedures [facility] Referred To Contact BR IMAG[facility] Diagnoses Breast disorder Procedures US BREAST LTD LEFT US BREAST UNI REAL TIME WITH IMAGE LIMITED Chanel Pascual MD [address] [place] [address] Br Imaging [address] [place] [address] Referral ID Status Reason Start Date Expiration Date V isits Requested Visits Authorized [id number] Closed Auto-Generate d Referral 10/23/2023 11/21/2024 1 1 [facility] for referral (narrative)* Diagnostic Procedure Only (Routine) - New Request Specialty Diagnoses / Procedures Referred By Contac t Referred To Contact BR IMAGING Diagnoses Abnormal finding on breast imaging Procedures VALERI NDL LOC W VALERI GD LEFT PERQ DEVICE PLACEMENT BREAST LOC 1ST LES W/[place] [address] [place] [address] Br Imaging [address] [place] [address] Referral ID Status Reason Start Date Expiration Date Visits Requested Visits Authorized [id number] New Request Auto-Generat ed Referral 11/23/2023 12/22/2024 1 1 [facility] for referral (narrative)* Outpatient Procedure (Routine) - Authorized Specialty Diagnoses / Procedures Referred By Contac t Referred To Contact [facility] Diagnoses Pre-operative examination Procedures ECHO ECHO TTHRC R-T 2D W/WOM-MODE COMPL SPEC&COLR D Elizabeth Smith APRN.MACHINE MAINTENANCE SERVICER [address] [place] [address] [facility] [place] [address] [place] [address] Referral ID Status Reason Start Date Expiration Date Visits Requested Visits Authorized [id number] Authorized Auto-Generat ed Referral 12/08/2023 12/07/2024 1 1 * Outpatient Procedure (Routine) - New Request Specialty Diagnoses / Procedures Referred By Contac t Referred To Contact [facility] [place] [facility] Diagnoses Pre-operative examination Procedures ECG COMPLETE ECG ROUTINE ECG W/LEAST 12 LDS W/I&R Elizabeth Smith APRN.MACHINE MAINTENANCE SERVICER [address] [place] [address] [facility] [place] [address] [place] [address] Referral ID Status Reason Start Date Expiration Date Visits Requested Visits Authorized [id number] New Request Auto-Generat ed Referral 12/08/2023 12/07/2024 1 1 [facility] for referral (narrative)* Diagnostic Procedure Only (Routine) - Closed Specialty Diagnoses / Procedures Referred By Contac t Referred To Contact XR IMAGING Diagnoses Chronic left hip pain Procedures XR HIP GENERAL 3V PELV/AP/LAT LEFT RADEX HIP UNILATERAL WITH PELVIS 2-3 VIEWS Breanna Ortiz APRN.CNP [address] [place] [address] [place] [address] Referral ID Status Reason Start Date Expiration Date V isits Requested Visits Authorized [id number] Closed Auto-Generate d Referral 07/08/2022 08/07/2023 1 1 [facility] for referral (narrative)* Diagnostic Procedure Only (Routine) - Authorized Specialty Diagnoses / Procedures Referred By Contac t Referred To Contact BR IMAGING Diagnoses Breast disorder Procedures US BREAST LTD LEFT US BREAST UNI REAL TIME WITH IMAGE LIMITED Chanel Pascual MD [address] [place] [address] Br Imaging [address] [place] [id number] Referral ID Status Reason Start Date Expiration Date Visits Requested Visits Authorized [id number] Authorized Auto-Generat ed Referral 10/23/2023 11/21/2024 1 1 [facility] for visit Narrative* Diagnostic Procedure Only (Routine) - Closed Specialty Diagnoses / Procedures Referred By Contac t Referred To Contact BR IMAGING Diagnoses Breast cancer screening by mammogram Procedures VALERI SCREENING W ARMANDO SCREENING DIGITAL BREAST TOMOSYNTHESIS BI SCREENING MAMMOGRAPHY BI 2-VIEW BREAST INC Ramandeep Baca MD [address] [place] [address] Br Imaging [address] [place] [address] Referral ID Status Reason Start Date Expiration Date V isits Requested Visits Authorized [id number] Closed Auto-Generate d Referral 06/18/2021 07/18/2022 1 1 [facility] for visit Narrative* Diagnostic Procedure Only (Routine) - Closed Specialty Diagnoses / Procedures Referred By Contac t Referred To Contact MOLECULAR & FUNCTIONAL IMAGING Diagnoses Encounter for screening for cardiovascular disorders Procedures NM CARDIAC PERF STRESS/EXERCISE MYOCARDIAL SPECT MULTIPLE STUDIES Ramandeep Alvarez MD [address] [place] [address] Molecular & Functional Imaging [address] [place] [address] Referral ID Status Reason Start Date Expiration Date V isits Requested Visits Authorized [id number] Closed Auto-Generate d Referral 07/12/2021 08/11/2022 1 1 [facility] for visit Narrative* Diagnostic Procedure Only (Routine) - Closed Specialty Diagnoses / Procedures Referred By Contac t Referred To Contact XR IMAGING Diagnoses Encounter for screening for osteoporosis Asymptomatic postmenopausal status Procedures DXA-AXIAL SKELETON Angélica Pulido, BANKING TEACHER.STOCK BLENDER [address] [place] [address] [place] [address] Referral ID Status Reason Start Date Expiration Date V isits Requested Visits Authorized [id number] Closed Auto-Generate d Referral 07/11/2023 08/09/2024 1 1 [facility] for visit Narrative* Diagnostic Procedure Only (Routine) - Closed Specialty Diagnoses / Procedures Referred By Contac t Referred To Contact BR IMAGING Diagnoses Encounter for screening mammogram for breast cancer Procedures VALERI SCREENING SCREENING MAMMOGRAPHY BI 2-VIEW BREAST INC CAD Angélica Pulido, BANKING TEACHER.STOCK BLENDER [address] [place] [address] [facility] [address] [place] [address] Referral ID Status Reason Start Date Expiration Date V isits Requested Visits Authorized [id number] Closed Auto-Generate d Referral 01/05/2023 02/04/2024 1 1 [facility] for visit Narrative* Diagnostic Procedure Only (Routine) - Closed Specialty Diagnoses / Procedures Referred By Contac t Referred To Contact BR IMAGING Diagnoses Abnormal mammogram of both breasts Procedures VALERI DIAGNOSTIC BILATERAL DIAGNOSTIC MAMMOGRAPHY COMPUTER-AIDED DETCJ BI Angélica Pulido, BANKING TEACHER.STOCK BLENDER [address] [place] [address] [facility] [address] [place] [address] Referral ID Status Reason Start Date Expiration Date V isits Requested Visits Authorized [id number] Closed Auto-Generate d Referral 07/30/2023 08/28/2024 1 1 [facility] for visit Narrative* Diagnostic Procedure Only (Routine) - Closed Specialty Diagnoses / Procedures Referred By Contac t Referred To Contact BR IMAGING Diagnoses Abnormal ultrasound of breast Procedures US BIOPSY BREAST LEFT BX BREAST W/DEVICE 1ST LESION ULTRASOUND GUID Kisha Saba MD [address] [place] [address] [facility] [address] [place] [address] Referral ID Status Reason Start Date Expiration Date V isits Requested Visits Authorized [id number] Closed Auto-Generate d Referral 10/27/2023 11/25/2024 1 1 [facility] for visit Narrative* Diagnostic Procedure Only (Routine) - Closed Specialty Diagnoses / Procedures Referred By Contac t Referred To Contact BR IMAGING Diagnoses Abnormal finding on breast imaging Procedures VALERI NDL LOC W VALERI GD LEFT PERQ DEVICE PLACEMENT BREAST LOC 1ST LES W/[place] [address] [place] [address] [facility] [address] [place] [address] Referral ID Status Reason Start Date Expiration Date V isits Requested Visits Authorized [id number] Closed Auto-Generate d Referral 11/23/2023 12/22/2024 1 1 [facility] for visit Narrative* Diagnostic Procedure Only (Routine) - Closed Specialty Diagnoses / Procedures Referred By Contac t Referred To Contact XR IMAGING Diagnoses Chronic left hip pain Procedures XR HIP GENERAL 3V PELV/AP/LAT LEFT RADEX HIP UNILATERAL WITH PELVIS 2-3 VIEWS Breanna Ortiz APRN.MACHINE MAINTENANCE SERVICER [address] [place] [address] [place] [address] Referral ID Status Reason Start Date Expiration Date V isits Requested Visits Authorized [id number] Closed Auto-Generate d Referral 07/08/2022 08/07/2023 1 1 [facility] Diagnostic Procedure Only (Routine) - Closed Specialty Diagnoses / Procedures Referred By Lupe montanez Referred To Contact BR IMAGING Diagnoses Atypical lobular hyperplasia (ALH) of left breast Procedures VALERI SCREENING W ARMANDO SCREENING DIGITAL BREAST TOMOSYNTHESIS BI SCREENING MAMMOGRAPHY BI 2-VIEW BREAST INC CAD Susan Carreor, CHARO.MACHINE MAINTENANCE SERVICER [address] [place] [address] Phone: tel: fax: [facility] [address] [place] [address] Referral ID Status Reason Start Date Expiration Date V isits Requested Visits Authorized [id number] Closed Auto-Generate d Referral 04/04/2024 05/04/2025 1 1 [facility] Advance Directives Documents on File Type Date Recorded 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 Advance Directive(s) Advance Directive(s) 06/27/2017 12:42 PM Documents on File Type Date Recorded 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 Advance Directive(s) Advance Directive(s) 06/27/2017 12:42 PM Reason for Referral Specialty Diagnoses / Procedures Referred By Lupe montanez Referred To Contact CT IMAGING Diagnoses Back pain, unspecified back location, unspecified back pain laterality, unspecified chronicity Chest pain, unspecified type Elevated d-dimer Procedures CT CHEST W IVCON PE DIAGNOSTIC COMPUTED TOMOGRAPHY THORAX W/CONTRAST Breanna Ortiz APRN.MACHINE MAINTENANCE SERVICER [address] [place] [address] Ct Imaging Referral ID Status Reason Start Date Expiration Date Visits Requested Visits Authorized [id number] Authorized Auto-Generat ed Referral 07/08/2021 08/07/2022 1 1 Referral ID Status Reason Start Date Expiration Date V isits Requested Visits Authorized [id number] Closed Auto-Generate d Referral 07/08/2021 08/07/2022 1 1 Specialty Diagnoses / Procedures Referred By Contac t Referred To Contact Orthopedics Diagnoses Chronic left hip pain Procedures CONSULT TO ORTHOPAEDICS OFFICE/OUTPATIENT NEW HIGH MDM 60-74 MINUTES Breanna Ortiz APRN.MACHINE MAINTENANCE SERVICER [address] [place] [address] Referral ID Status Reason Start Date Expiration Date Visits Requested Visits Authorized [id number] Pending Review PCP Requested Referral 07/11/2022 07/11/2023 1 1 Specialty Diagnoses / Procedures Referred By Contac t Referred To Contact [facility] Diagnoses Chronic left hip pain Procedures CONSULT TO PHYSICAL THERAPY PHYSICAL THERAPY EVALUATION HIGH COMPLEX 45 MINS THERAPEUTIC EXERCISES RE, EA 15 MIN. Breanna Ortiz APRN.MACHINE MAINTENANCE SERVICER [address] [place] [address] [facility] [address] [address] Referral ID Status Reason Start Date Expiration Date Visits Requested Visits Authorized [id number] Authorized Auto-Generat ed Referral 03/27/2022 03/26/2023 20 20 Specialty Diagnoses / Procedures Referred By Contac t Referred To Contact [facility] Diagnoses Chronic left hip pain Pain of left hip joint Procedures PT REHAB FOLLOW UP ORDER THERAPEUTIC EXERCISES RE, EA 15 MIN. Pt [facility] [address] [place] [address] [facility] [address] [address] Referral ID Status Reason Start Date Expiration Date Visits Requested Visits Authorized [id number] Pending Review PCP Requested Referral Auto-Generate d Referral 07/19/2022 10/17/2022 1 1 Specialty Diagnoses / Procedures Referred By Contac t Referred To Contact Radiation Oncology Diagnoses Malignant neoplasm of upper-outer quadrant of right breast in female, estrogen receptor positive (HCC) Procedures RAD/ONC CONSULT OFFICE/OUTPATIENT [facility] MDM [address] [place] [address] [facility] [place] [address] Referral ID Status Reason Start Date Expiration Date Visits Requested Visits Authorized [id number] Authorized PCP Requested Referral 10/12/2023 10/11/2024 1 1 Specialty Diagnoses / Procedures Referred By Contac t Referred To Contact Diagnoses Malignant neoplasm of upper-outer quadrant of right breast in female, estrogen receptor positive (HCC) Procedures CONSULT TO HEMATOLOGY/ONCOLOGY OFFICE/OUTPATIENT [facility] [place] [address] [place] [address] [place] [address] Referral ID Status Reason Start Date Expiration Date Visits Requested Visits Authorized [id number] Authorized PCP Requested Referral 10/12/2023 10/11/2024 1 1 Specialty Diagnoses / Procedures Referred By Contac t Referred To Contact MR IMAGING Diagnoses Malignant neoplasm of upper-outer quadrant of right breast in female, estrogen receptor positive (HCC) Procedures MRI BREAST WO/W IVCON BILATERAL MRI BREAST WITHOUT&WITH CONTRAST W/[place] [address] [place] [address] Mr [facility] [place] [address] Referral ID Status Reason Start Date Expiration Date Visits Requested Visits Authorized [id number] Authorized Auto-Generat ed Referral 10/12/2023 11/10/2024 1 1 Specialty Diagnoses / Procedures Referred By Contac t Referred To Contact MR IMAGING Diagnoses Abnormal ultrasound of breast Procedures MRI CLIP PLACEMENT BREAST LEFT PERQ BREAST LOC DEVICE PLACEMT 1ST LESIO MR GUID Kisha Saba MD [address] [place] [address] Mr [facility] [place] [address] Referral ID Status Reason Start Date Expiration Date V isits Requested Visits Authorized [id number] Closed Auto-Generate d Referral 10/27/2023 11/25/2024 1 1 Specialty Diagnoses / Procedures Referred By Contac t Referred To Contact MR IMAGING Diagnoses Abnormal MRI, breast Procedures MRI BREAST BX WO/W IVCON LEFT BX BREAST W/DEVICE 1ST LESION MAGNETIC RES GUID Mo Medina MD [address] [place] [id number] Mr Imaging [facility] Referral ID Status Reason Start Date Expiration Date Visits Requested Visits Authorized [id number] Authorized Auto-Generat ed Referral 11/07/2023 12/06/2024 1 1 Referral ID Status Reason Start Date Expiration Date V isits Requested Visits Authorized [id number] Closed Auto-Generate d Referral 11/07/2023 12/06/2024 1 [...] or prosecute any alcohol or drug abuse patient.[facility] the event this information is protected by the Federal Confidentiality of Alcohol and Drug Abuse Patient Records regulations: The Federal rules restrict any use of the information to criminally investigate or prosecute any alcohol or drug abuse patient.[facility] the event this information is protected by the Federal Confidentiality of Alcohol and Drug Abuse Patient Records regulations: The Federal rules restrict any use of the information to criminally investigate or prosecute any alcohol or drug abuse patient.[facility] Center[facility] the event this information is protected by the Federal Confidentiality of Alcohol and Drug Abuse Patient Records regulations: The Federal rules restrict any use of the information to criminally investigate or prosecute any alcohol or drug abuse patient.[facility] the event this information is protected by the Federal Confidentiality of Alcohol and Drug Abuse Patient Records regulations: The Federal rules restrict any use of the information to criminally investigate or prosecute any alcohol or drug abuse patient.[facility] the event this information is protected by the Federal Confidentiality of Alcohol and Drug Abuse Patient Records regulations: The Federal rules restrict any use of the information to criminally investigate or prosecute any alcohol or drug abuse patient.[facility] Center[facility] the event this information is protected by the Federal Confidentiality of Alcohol and Drug Abuse Patient Records regulations: The Federal rules restrict any use of the information to criminally investigate or prosecute any alcohol or drug abuse patient.[facility] CenterIn the event this information is protected by the Federal Confidentiality of Alcohol and Drug Abuse Patient Records regulations: The Federal rules restrict any use of the information to criminally investigate or prosecute any alcohol or drug abuse patient.[facility] CenterIn the event this information is protected by the Federal Confidentiality of Alcohol and Drug Abuse Patient Records regulations: The Federal rules restrict any use of the information to criminally investigate or prosecute any alcohol or drug abuse patient.[facility] CenterIn the event this information is protected by the Federal Confidentiality of Alcohol and Drug Abuse Patient Records regulations: The Federal rules restrict any use of the information to criminally investigate or prosecute any alcohol or drug abuse patient.[facility] CenterIn the event this information is protected by the Federal Confidentiality of Alcohol and Drug Abuse Patient Records regulations: The Federal rules restrict any use of the information to criminally investigate or prosecute any alcohol or drug abuse patient.[facility] CenterIn the event this information is protected by the Federal Confidentiality of Alcohol and Drug Abuse Patient Records regulations: The Federal rules restrict any use of the information to criminally investigate or prosecute any alcohol or drug abuse patient.[facility] CenterIn the event this information is protected by the Federal Confidentiality of Alcohol and Drug Abuse Patient Records regulations: The Federal rules restrict any use of the information to criminally investigate or prosecute any alcohol or drug abuse patient.[facility] CenterIn the event this information is protected by the Federal Confidentiality of Alcohol and Drug Abuse Patient Records regulations: The Federal rules restrict any use of the information to criminally investigate or prosecute any alcohol or drug abuse patient.[facility] CenterIn the event this information is protected by the Federal Confidentiality of Alcohol and Drug Abuse Patient Records regulations: The Federal rules restrict any use of the information to criminally investigate or prosecute any alcohol or drug abuse patient.[facility] CenterIn the event this information is protected by the Federal Confidentiality of Alcohol and Drug Abuse Patient Records regulations: The Federal rules restrict any use of the information to criminally investigate or prosecute any alcohol or drug abuse patient.[facility] CenterIn the event this information is protected by the Federal Confidentiality of Alcohol and Drug Abuse Patient Records regulations: The Federal rules restrict any use of the information to criminally investigate or prosecute any alcohol or drug abuse patient.[facility] CenterIn the event this information is protected by the Federal Confidentiality of Alcohol and Drug Abuse Patient Records regulations: The Federal rules restrict any use of the information to criminally investigate or prosecute any alcohol or drug abuse patient.[facility] CenterIn the event this information is protected by the Federal Confidentiality of Alcohol and Drug Abuse Patient Records regulations: The Federal rules restrict any use of the information to criminally investigate or prosecute any alcohol or drug abuse patient.[facility] CenterIn the event this information is protected by the Federal Confidentiality of Alcohol and Drug Abuse Patient Records regulations: The Federal rules restrict any use of the information to criminally investigate or prosecute any alcohol or drug abuse patient.[facility] CenterIn the event this information is protected by the Federal Confidentiality of Alcohol and Drug Abuse Patient Records regulations: The Federal rules restrict any use of the information to criminally investigate or prosecute any alcohol or drug abuse patient.[facility] CenterIn the event this information is protected by the Federal Confidentiality of Alcohol and Drug Abuse Patient Records regulations: The Federal rules restrict any use of the information to criminally investigate or prosecute any alcohol or drug abuse patient.[facility] CenterIn the event this information is protected by the Federal Confidentiality of Alcohol and Drug Abuse Patient Records regulations: The Federal rules restrict any use of the information to criminally investigate or prosecute any alcohol or drug abuse patient.[facility] CenterIn the event this information is protected by the Federal Confidentiality of Alcohol and Drug Abuse Patient Records regulations: The Federal rules restrict any use of the information to criminally investigate or prosecute any alcohol or drug abuse patient.[facility] CenterIn the event this information is protected by the Federal Confidentiality of Alcohol and Drug Abuse Patient Records regulations: The Federal rules restrict any use of the information to criminally investigate or prosecute any alcohol or drug abuse patient.[facility] CenterIn the event this information is protected by the Federal Confidentiality of Alcohol and Drug Abuse Patient Records regulations: The Federal rules restrict any use of the information to criminally investigate or prosecute any alcohol or drug abuse patient.[facility] CenterIn the event this information is protected by the Federal Confidentiality of Alcohol and Drug Abuse Patient Records regulations: The Federal rules restrict any use of the information to criminally investigate or prosecute any alcohol or drug abuse patient.[facility] CenterIn the event this information is protected by the Federal Confidentiality of Alcohol and Drug Abuse Patient Records regulations: The Federal rules restrict any use of the information to criminally investigate or prosecute any alcohol or drug abuse patient.[facility] CenterIn the event this information is protected by the Federal Confidentiality of Alcohol and Drug Abuse Patient Records regulations: The Federal rules restrict any use of the information to criminally investigate or prosecute any alcohol or drug abuse patient.[facility] CenterIn the event this information is protected by the Federal Confidentiality of Alcohol and Drug Abuse Patient Records regulations: The Federal rules restrict any use of the information to criminally investigate or prosecute any alcohol or drug abuse patient.[facility] CenterIn the event this information is protected by the Federal Confidentiality of Alcohol and Drug Abuse Patient Records regulations: The Federal rules restrict any use of the information to criminally investigate or prosecute any alcohol or drug abuse patient.[facility] CenterIn the event this information is protected by the Federal Confidentiality of Alcohol and Drug Abuse Patient Records regulations: The Federal rules restrict any use of the information to criminally investigate or prosecute any alcohol or drug abuse patient.[facility] CenterIn the event this information is protected by the Federal Confidentiality of Alcohol and Drug Abuse Patient Records regulations: The Federal rules restrict any use of the information to criminally investigate or prosecute any alcohol or drug abuse patient.[facility] CenterIn the event this information is protected by the Federal Confidentiality of Alcohol and Drug Abuse Patient Records regulations: The Federal rules restrict any use of the information to criminally investigate or prosecute any alcohol or drug abuse patient.[facility] CenterIn the event this information is protected by the Federal Confidentiality of Alcohol and Drug Abuse Patient Records regulations: The Federal rules restrict any use of the information to criminally investigate or prosecute any alcohol or drug abuse patient.[facility] CenterIn the event this information is protected by the Federal Confidentiality of Alcohol and Drug Abuse Patient Records regulations: The Federal rules restrict any use of the information to criminally investigate or prosecute any alcohol or drug abuse patient.[facility] CenterIn the event this information is protected by the Federal Confidentiality of Alcohol and Drug Abuse Patient Records regulations: The Federal rules restrict any use of the information to criminally investigate or prosecute any alcohol or drug abuse patient.[facility] CenterIn the event this information is protected by the Federal Confidentiality of Alcohol and Drug Abuse Patient Records regulations: The Federal rules restrict any use of the information to criminally investigate or prosecute any alcohol or drug abuse patient.[facility] CenterIn the event this information is protected by the Federal Confidentiality of Alcohol and Drug Abuse Patient Records regulations: The Federal rules restrict any use of the information to criminally investigate or prosecute any alcohol or drug abuse patient.[facility] CenterIn the event this information is protected by the Federal Confidentiality of Alcohol and Drug Abuse Patient Records regulations: The Federal rules restrict any use of the information to criminally investigate or prosecute any alcohol or drug abuse patient.[facility] CenterIn the event this information is protected by the Federal Confidentiality of Alcohol and Drug Abuse Patient Records regulations: The Federal rules restrict any use of the information to criminally investigate or prosecute any alcohol or drug abuse patient.[facility] CenterIn the event this information is protected by the Federal Confidentiality of Alcohol and Drug Abuse Patient Records regulations: The Federal rules restrict any use of the information to criminally investigate or prosecute any alcohol or drug abuse patient.[facility] CenterIn the event this information is protected by the Federal Confidentiality of Alcohol and Drug Abuse Patient Records regulations: The Federal rules restrict any use of the information to criminally investigate or prosecute any alcohol or drug abuse patient.[facility] CenterIn the event this information is protected by the Federal Confidentiality of Alcohol and Drug Abuse Patient Records regulations: The Federal rules restrict any use of the information to criminally investigate or prosecute any alcohol or drug abuse patient.[facility] CenterIn the event this information is protected by the Federal Confidentiality of Alcohol and Drug Abuse Patient Records regulations: The Federal rules restrict any use of the information to criminally investigate or prosecute any alcohol or drug abuse patient.[facility] CenterIn the event this information is protected by the Federal Confidentiality of Alcohol and Drug Abuse Patient Records regulations: The Federal rules restrict any use of the information to criminally investigate or prosecute any alcohol or drug abuse patient.[facility] CenterIn the event this information is protected by the Federal Confidentiality of Alcohol and Drug Abuse Patient Records regulations: The Federal rules restrict any use of the information to criminally investigate or prosecute any alcohol or drug abuse patient.[facility] CenterIn the event this information is protected by the Federal Confidentiality of Alcohol and Drug Abuse Patient Records regulations: The Federal rules restrict any use of the information to criminally investigate or prosecute any alcohol or drug abuse patient.[facility] CenterIn the event this information is protected by the Federal Confidentiality of Alcohol and Drug Abuse Patient Records regulations: The Federal rules restrict any use of the information to criminally investigate or prosecute any alcohol or drug abuse patient.[facility] CenterIn the event this information is protected by the Federal Confidentiality of Alcohol and Drug Abuse Patient Records regulations: The Federal rules restrict any use of the information to criminally investigate or prosecute any alcohol or drug abuse patient.[facility] CenterIn the event this information is protected by the Federal Confidentiality of Alcohol and Drug Abuse Patient Records regulations: The Federal rules restrict any use of the information to criminally investigate or prosecute any alcohol or drug abuse patient.[facility] CenterIn the event this information is protected by the Federal Confidentiality of Alcohol and Drug Abuse Patient Records regulations: The Federal rules restrict any use of the information to criminally investigate or prosecute any alcohol or drug abuse patient.[facility] CenterIn the event this information is protected by the Federal Confidentiality of Alcohol and Drug Abuse Patient Records regulations: The Federal rules restrict any use of the information to criminally investigate or prosecute any alcohol or drug abuse patient.[facility] CenterIn the event this information is protected by the Federal Confidentiality of Alcohol and Drug Abuse Patient Records regulations: The Federal rules restrict any use of the information to criminally investigate or prosecute any alcohol or drug abuse patient.[facility] CenterIn the event this information is protected by the Federal Confidentiality of Alcohol and Drug Abuse Patient Records regulations: The Federal rules restrict any use of the information to criminally investigate or prosecute any alcohol or drug abuse patient.[facility] CenterIn the event this information is protected by the Federal Confidentiality of Alcohol and Drug Abuse Patient Records regulations: The Federal rules restrict any use of the information to criminally investigate or prosecute any alcohol or drug abuse patient.[facility] CenterIn the event this information is protected by the Federal Confidentiality of Alcohol and Drug Abuse Patient Records regulations: The Federal rules restrict any use of the information to criminally investigate or prosecute any alcohol or drug abuse patient.[facility] CenterIn the event this information is protected by the Federal Confidentiality of Alcohol and Drug Abuse Patient Records regulations: The Federal rules restrict any use of the information to criminally investigate or prosecute any alcohol or drug abuse patient.[facility] CenterIn the event this information is protected by the Federal Confidentiality of Alcohol and Drug Abuse Patient Records regulations: The Federal rules restrict any use of the information to criminally investigate or prosecute any alcohol or drug abuse patient.[facility] CenterIn the event this information is protected by the Federal Confidentiality of Alcohol and Drug Abuse Patient Records regulations: The Federal rules restrict any use of the information to criminally investigate or prosecute any alcohol or drug abuse patient.[facility] CenterIn the event this information is protected by the Federal Confidentiality of Alcohol and Drug Abuse Patient Records regulations: The Federal rules restrict any use of the information to criminally investigate or prosecute any alcohol or drug abuse patient.[facility] CenterIn the event this information is protected by the Federal Confidentiality of Alcohol and Drug Abuse Patient Records regulations: The Federal rules restrict any use of the information to criminally investigate or prosecute any alcohol or drug abuse patient.[facility] CenterIn the event this information is protected by the Federal Confidentiality of Alcohol and Drug Abuse Patient Records regulations: The Federal rules restrict any use of the information to criminally investigate or prosecute any alcohol or drug abuse patient.[facility] CenterIn the event this information is protected by the Federal Confidentiality of Alcohol and Drug Abuse Patient Records regulations: The Federal rules restrict any use of the information to criminally investigate or prosecute any alcohol or drug abuse patient.[facility] CenterIn the event this information is protected by the Federal Confidentiality of Alcohol and Drug Abuse Patient Records regulations: The Federal rules restrict any use of the information to criminally investigate or prosecute any alcohol or drug abuse patient.[facility] CenterIn the event this information is protected by the Federal Confidentiality of Alcohol and Drug Abuse Patient Records regulations: The Federal rules restrict any use of the information to criminally investigate or prosecute any alcohol or drug abuse patient.[facility] CenterIn the event this information is protected by the Federal Confidentiality of Alcohol and Drug Abuse Patient Records regulations: The Federal rules restrict any use of the information to criminally investigate or prosecute any alcohol or drug abuse patient.[facility] CenterIn the event this information is protected by the Federal Confidentiality of Alcohol and Drug Abuse Patient Records regulations: The Federal rules restrict any use of the information to criminally investigate or prosecute any alcohol or drug abuse patient.[facility] CenterIn the event this information is protected by the Federal Confidentiality of Alcohol and Drug Abuse Patient Records regulations: The Federal rules restrict any use of the information to criminally investigate or prosecute any alcohol or drug abuse patient.[facility] CenterIn the event this information is protected by the Federal Confidentiality of Alcohol and Drug Abuse Patient Records regulations: The Federal rules restrict any use of the information to criminally investigate or prosecute any alcohol or drug abuse patient.[facility] CenterIn the event this information is protected by the Federal Confidentiality of Alcohol and Drug Abuse Patient Records regulations: The Federal rules restrict any use of the information to criminally investigate or prosecute any alcohol or drug abuse patient.[facility] CenterIn the event this information is protected by the Federal Confidentiality of Alcohol and Drug Abuse Patient Records regulations: The Federal rules restrict any use of the information to criminally investigate or prosecute any alcohol or drug abuse patient.[facility] CenterIn the event this information is protected by the Federal Confidentiality of Alcohol and Drug Abuse Patient Records regulations: The Federal rules restrict any use of the information to criminally investigate or prosecute any alcohol or drug abuse patient.[facility] CenterIn the event this information is protected by the Federal Confidentiality of Alcohol and Drug Abuse Patient Records regulations: The Federal rules restrict any use of the information to criminally investigate or prosecute any alcohol or drug abuse patient.[facility] CenterIn the event this information is protected by the Federal Confidentiality of Alcohol and Drug Abuse Patient Records regulations: The Federal rules restrict any use of the information to criminally investigate or prosecute any alcohol or drug abuse patient.[facility] CenterIn the event this information is protected by the Federal Confidentiality of Alcohol and Drug Abuse Patient Records regulations: The Federal rules restrict any use of the information to criminally investigate or prosecute any alcohol or drug abuse patient.[facility] CenterIn the event this information is protected by the Federal Confidentiality of Alcohol and Drug Abuse Patient Records regulations: The Federal rules restrict any use of the information to criminally investigate or prosecute any alcohol or drug abuse patient.[facility] CenterIn the event this information is protected by the Federal Confidentiality of Alcohol and Drug Abuse Patient Records regulations: The Federal rules restrict any use of the information to criminally investigate or prosecute any alcohol or drug abuse patient.[facility] CenterIn the event this information is protected by the Federal Confidentiality of Alcohol and Drug Abuse Patient Records regulations: The Federal rules restrict any use of the information to criminally investigate or prosecute any alcohol or drug abuse patient.[facility] CenterIn the event this information is protected by the Federal Confidentiality of Alcohol and Drug Abuse Patient Records regulations: The Federal rules restrict any use of the information to criminally investigate or prosecute any alcohol or drug abuse patient.[facility] CenterIn the event this information is protected by the Federal Confidentiality of Alcohol and Drug Abuse Patient Records regulations: The Federal rules restrict any use of the information to criminally investigate or prosecute any alcohol or drug abuse patient.[facility] CenterIn the event this information is protected by the Federal Confidentiality of Alcohol and Drug Abuse Patient Records regulations: The Federal rules restrict any use of the information to criminally investigate or prosecute any alcohol or drug abuse patient.[facility] CenterIn the event this information is protected by the Federal Confidentiality of Alcohol and Drug Abuse Patient Records regulations: The Federal rules restrict any use of the information to criminally investigate or prosecute any alcohol or drug abuse patient.[facility] CenterIn the event this information is protected by the Federal Confidentiality of Alcohol and Drug Abuse Patient Records regulations: The Federal rules restrict any use of the information to criminally investigate or prosecute any alcohol or drug abuse patient.[facility] CenterIn the event this information is protected by the Federal Confidentiality of Alcohol and Drug Abuse Patient Records regulations: The Federal rules restrict any use of the information to criminally investigate or prosecute any alcohol or drug abuse patient.[facility] CenterIn the event this information is protected by the Federal Confidentiality of Alcohol and Drug Abuse Patient Records regulations: The Federal rules restrict any use of the information to criminally investigate or prosecute any alcohol or drug abuse patient.[facility] CenterIn the event this information is protected by the Federal Confidentiality of Alcohol and Drug Abuse Patient Records regulations: The Federal rules restrict any use of the information to criminally investigate or prosecute any alcohol or drug abuse patient.[facility] CenterIn the event this information is protected by the Federal Confidentiality of Alcohol and Drug Abuse Patient Records regulations: The Federal rules restrict any use of the information to criminally investigate or prosecute any alcohol or drug abuse patient.[facility] CenterIn the event this information is protected by the Federal Confidentiality of Alcohol and Drug Abuse Patient Records regulations: The Federal rules restrict any use of the information to criminally investigate or prosecute any alcohol or drug abuse patient.[facility] CenterIn the event this information is protected by the Federal Confidentiality of Alcohol and Drug Abuse Patient Records regulations: The Federal rules restrict any use of the information to criminally investigate or prosecute any alcohol or drug abuse patient.[facility] CenterIn the event this information is protected by the Federal Confidentiality of Alcohol and Drug Abuse Patient Records regulations: The Federal rules restrict any use of the information to criminally investigate or prosecute any alcohol or drug abuse patient.[facility] CenterIn the event this information is protected by the Federal Confidentiality of Alcohol and Drug Abuse Patient Records regulations: The Federal rules restrict any use of the information to criminally investigate or prosecute any alcohol or drug abuse patient.[facility] CenterIn the event this information is protected by the Federal Confidentiality of Alcohol and Drug Abuse Patient Records regulations: The Federal rules restrict any use of the information to criminally investigate or prosecute any alcohol or drug abuse patient.[facility] CenterIn the event this information is protected by the Federal Confidentiality of Alcohol and Drug Abuse Patient Records regulations: The Federal rules restrict any use of the information to criminally investigate or prosecute any alcohol or drug abuse patient.[facility] CenterIn the event this information is protected by the Federal Confidentiality of Alcohol and Drug Abuse Patient Records regulations: The Federal rules restrict any use of the information to criminally investigate or prosecute any alcohol or drug abuse patient.[facility] CenterIn the event this information is protected by the Federal Confidentiality of Alcohol and Drug Abuse Patient Records regulations: The Federal rules restrict any use of the information to criminally investigate or prosecute any alcohol or drug abuse patient.[facility] CenterIn the event this information is protected by the Federal Confidentiality of Alcohol and Drug Abuse Patient Records regulations: The Federal rules restrict any use of the information to criminally investigate or prosecute any alcohol or drug abuse patient.[facility] CenterIn the event this information is protected by the Federal Confidentiality of Alcohol and Drug Abuse Patient Records regulations: The Federal rules restrict any use of the information to criminally investigate or prosecute any alcohol or drug abuse patient.[facility] CenterIn the event this information is protected by the Federal Confidentiality of Alcohol and Drug Abuse Patient Records regulations: The Federal rules restrict any use of the information to criminally investigate or prosecute any alcohol or drug abuse patient.[facility] Reason for Visit (unrecogniz ed section and [...] DIAGNOSTIC COMPUTED TOMOGRAPHY THORAX W/CONTRAST Breanna Ortiz APRN.MACHINE MAINTENANCE SERVICER [address] [place] [address] Ct [facility] Referral ID Status Reason Start Date Expiration Date V isits Requested Visits Authorized [id number] Closed Auto-Generate d Referral 07/08/2021 08/07/2022 1 [...] EXERCISES RE, EA 15 MIN. Breanna Ortiz APRN.MACHINE MAINTENANCE SERVICER [address] [place] [address] [facility] [address] [address] Referral ID Status Reason Start Date Expiration Date Visits Requested Visits Authorized [id number] Authorized Auto-Generat ed Referral 03/27/2022 03/26/2023 20 20 Reason Comments Physical Therapy Specialty Diagnoses / Procedures Referred By Contac t Referred To Contact [facility] Diagnoses Chronic left hip pain Procedures CONSULT TO PHYSICAL THERAPY PHYSICAL THERAPY EVALUATION HIGH COMPLEX 45 MINS THERAPEUTIC EXERCISES RE, EA 15 MIN. Breanna Ortiz APRN.MACHINE MAINTENANCE SERVICER [address] [place] [address] [facility] [address] [address] Reason Onset Date Comments Refill Request 08/23/2022 [...] US Specialty Diagnoses / [facility] Diagnoses Abnormal mammogram of both breasts Procedures US BREAST LTD RIGHT US BREAST UNI REAL TIME WITH IMAGE LIMITED Pulido, Angélica, BANKING TEACHER.STOCK BLENDER [address] [place] [address] [facility] [address] [place] [address] Referral ID Status Reason Start Date Expiration Date V isits Requested Visits Authorized [id number] Closed Auto-Generate d Referral 07/30/2023 08/28/2024 1 1 Reason Comments Consult Left breast Reason Comments Radio Imaging Study Comments Reason Comments Hives Reason Comments Radiology Invasive Breast Procedure Specialty Diagnoses / Procedures [facility] Diagnoses Abnormal mammogram Procedures VALERI STEREO BX BREAST RIGHT BX BREAST W/DEVICE 1ST LESION STEREOTACTIC Ayo Montelongo MD [address] [place] [address] [facility] [address] [place] [address] Referral ID Status Reason Start Date Expiration Date V isits Requested Visits Authorized [id number] Closed Auto-Generate d Referral 09/04/2023 10/03/2024 1 1 Reason Comments Radiology Invasive Breast Procedure Specialty Diagnoses / Procedures [facility] Diagnoses Abnormal mammogram Procedures VALERI STEREO BX BREAST RIGHT BX BREAST W/DEVICE 1ST LESION STEREOTACTIC Ayo Montelongo MD [address] [place] [address] [facility] [address] [place] [address] Reason Comments Results Appointment Reason Comments 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 Kwon Reason Comments Breast Cancer Reason Comments Radiology Mammogram Specialty Diagnoses / Procedures [facility] Diagnoses Malignant neoplasm of upper-outer quadrant of right breast in female, estrogen receptor positive (HCC) Procedures US AXILLA ONLY RIGHT US LMTD JOINT/OTH NONVASC XTR STRUX R-T W/[place] [address] [place] [address] [facility] [address] [place] [id number] Referral ID Status Reason Start Date Expiration Date V isits Requested Visits Authorized [id number] Closed Auto-Generate d Referral 10/17/2023 11/15/2024 1 1 Reason Comments Radiology MRI Specialty Diagnoses / Procedures Referred By Contac t Referred To Contact [facility] Diagnoses Malignant neoplasm of upper-outer quadrant of right breast in female, estrogen receptor positive (HCC) Procedures MRI BREAST WO/W IVCON BILATERAL MRI BREAST WITHOUT&WITH CONTRAST W/[place] [address] [place] [address] [facility] [place] [address] Referral ID Status Reason Start Date Expiration Date V isits Requested Visits Authorized [id number] Closed Auto-Generate d Referral 10/12/2023 11/10/2024 1 1 Reason Comments Return Call Request Reason Comments MRI Report Specialty Diagnoses / Procedures Referred By Contac t Referred To Contact [facility] Diagnoses Breast disorder Procedures US BREAST LTD LEFT US BREAST UNI REAL TIME WITH IMAGE LIMITED Chanel Pascual MD [address] [place] [address] [facility] [address] [place] [address] Referral ID Status Reason Start Date Expiration Date V isits Requested Visits Authorized [id number] Closed Auto-Generate d Referral 10/23/2023 11/21/2024 1 1 Reason Comments Appointment Specialty Diagnoses / Procedures Referred By Contac t Referred To Contact [facility] Diagnoses Abnormal ultrasound of breast Procedures MRI CLIP PLACEMENT BREAST LEFT PERQ BREAST LOC DEVICE PLACEMT 1ST LESIO Kisha Zarco MD [address] [place] [address] [facility] [place] [address] Referral ID Status Reason Start Date Expiration Date V isits Requested Visits Authorized [id number] Closed Auto-Generate d Referral 10/27/2023 11/25/2024 1 1 Reason Onset Date Comments Population Health Navigation Outreach 11/08/2023 Tsering Lewis PCSA Reason Comments New Patient Specialty Diagnoses / Procedures Referred By Lupe t Referred To Contact Diagnoses Malignant neoplasm of upper-outer quadrant of right breast in female, estrogen receptor positive (HCC) Procedures CONSULT TO HEMATOLOGY/ONCOLOGY OFFICE/OUTPATIENT NEW HIGH MDM [address] [place] [address] [place] [address] Referral ID Status Reason Start Date Expiration Date V isits Requested Visits Authorized [id number] Closed PCP Requested Referral 10/12/2023 10/11/2024 1 1 Reason Comments Consult Reason Onset Date Comments Allied Health Visit 11/14/2023 Medication A dherence Outreach Reason Comments Radiology MRI Specialty Diagnoses / Procedures Referred By Lupe montanez Referred To Contact [facility] Diagnoses Abnormal MRI, breast Procedures MRI BREAST BX WO/W IVCON LEFT BX BREAST W/DEVICE 1ST LESION MAGNETIC RES GUID Mo Medina MD [address] [place] [address] [place] [address] Referral ID Status Reason Start Date Expiration Date V isits Requested Visits Authorized [id number] Closed Auto-Generate d Referral 11/07/2023 12/06/2024 1 [...] HIGH MDM 60 MINUTES Kimberly Chavez PA-C [address] [place] [address] Referral ID Status Reason Start Date Expiration Date V isits Requested Visits Authorized [id number] Closed PCP Requested Referral 11/23/2023 11/22/2024 1 1 Reason Comments Insect Bite Reason Comments Pre-Op Teaching Specialty Diagnoses / Procedures Referred By Lupe montanez Referred To Contact [facility] Diagnoses Malignant neoplasm of upper-outer quadrant [...] MARKER, OPEN, SINGLE LESION [facility] [address] [place] [address] Referral ID Status Reason Start Date Expiration Date Visits Re quested Visits Authorized [id number] 1 1 Reason Comments Post Op Reason [...] breast (HCC) Laney Ignacio, DO [address] [place] [address] Phone: tel: fax: Laney Ignacio, DO [address] [place] [address] Phone: tel: fax: Referral ID Status Reason Start Date Expiration Date Visits Re quested Visits Authorized [id number] Closed 08/14/2024 07/08/2025 0 4 Reason Onset Date Comments Refill Request 08/23/2024 Care Teams (unrecognized sec tion and content) Curriculum Director Relationship Specialty Start Date End Date Ramandeep Alvarez MD [address] [place], [place] [id number] PCP - General Internal Medicine 03/07/16 Curriculum Director Relationship Specialty Start Date End Date Ramandeep Alvarez MD [address] [place] [address] PCP - General Internal Medicine 03/07/16 Curriculum Director Relationship Specialty Start Date End Date Ramandeep Alvarez MD [address] [place] [address] PCP - General Internal Medicine 03/07/16 Curriculum Director Relationship Specialty Start Date End Date Ramandeep Alvarez MD [address] [place] [address] PCP - General Internal Medicine 03/07/16 Curriculum Director Relationship Specialty Start Date End Date Ramandeep Alvarez MD [address] [place] [address] PCP - General Internal Medicine 03/07/16 Curriculum Director Relationship Specialty Start Date End Date Ramandeep Alvarez MD [address] [place] [address] PCP - General Internal Medicine 03/07/16 Curriculum Director Relationship Specialty Start Date End Date Ramandeep Alvarez MD [address] [place] [address] PCP - General Internal Medicine 03/07/16 Curriculum Director Relationship Specialty Start Date End Date Ramandeep Alvarez MD [address] [place] [address] PCP - General Internal Medicine 03/07/16 Curriculum Director Relationship Specialty Start Date End Date Ramandeep Alvarez MD [address] [place] [address] PCP - General Internal Medicine 03/07/16 Curriculum Director Relationship Specialty Start Date End Date Ramandeep Alvarez MD [address] [place] [address] PCP - General Internal Medicine 03/07/16 Curriculum Director Relationship Specialty Start Date End Date Ramandeep Alvarez MD [address] [place] [address] PCP - General Internal Medicine 03/07/16 Curriculum Director Relationship Specialty Start Date End Date Ramandeep Alvarez MD [address] [place] [address] PCP - General Internal Medicine 03/07/16 Curriculum Director Relationship Specialty Start Date End Date Ramandeep Alvarez MD [address] [place] [address] PCP - General Internal Medicine 03/07/16 Curriculum Director Relationship Specialty Start Date End Date Ramandeep Alvarez MD [address] [place] [address] PCP - General Internal Medicine 03/07/16 Curriculum Director Relationship Specialty Start Date End Date Ramandeep Alvarez MD [address] [place] [address] PCP - General Internal Medicine 03/07/16 Curriculum Director Relationship Specialty Start Date End Date Ramandeep Alvarez MD [address] [place] [address] PCP - General Internal Medicine 03/07/16 Curriculum Director Relationship Specialty Start Date End Date Ramandeep Alvarez MD [address] [place] [address] PCP - General Internal Medicine 03/07/16 Curriculum Director Relationship Specialty Start Date End Date Ramandeep Alvarez MD [address] [place] [address] PCP - General Internal Medicine 03/07/16 Curriculum Director Relationship Specialty Start Date End Date Ramandeep Alvarez MD [address] [place] [address] PCP - General Internal Medicine 03/07/16 Curriculum Director Relationship Specialty Start Date End Date Ramandeep Alvarez MD [address] [place] [address] PCP - General Internal Medicine 03/07/16 Curriculum Director Relationship Specialty Start Date End Date Ramandeep Alvarez MD [address] [place] [address] PCP - General Internal Medicine 03/07/16 Curriculum Director Relationship Specialty Start Date End Date Ramandeep Alvarez MD [address] [place] [address] PCP - General Internal Medicine 03/07/16 Curriculum Director Relationship Specialty Start Date End Date Ramandeep Alvarez MD [address] [place] [address] PCP - General Internal Medicine 03/07/16 Curriculum Director Relationship Specialty Start Date End Date Ramandeep Alvarez MD [address] [place] [address] PCP - General Internal Medicine 03/07/16 Curriculum Director Relationship Specialty Start Date End Date Ramandeep Alvarez MD [address] [place] [address] PCP - General Internal Medicine 03/07/16 Curriculum Director Relationship Specialty Start Date End Date Ramandeep Alvarez MD [address] [place] [address] PCP - General Internal Medicine 03/07/16 Curriculum Director Relationship Specialty Start Date End Date Ramandeep Alvarez MD [address] [place] [address] PCP - General Internal Medicine 03/07/16 Curriculum Director Relationship Specialty Start Date End Date Ramandeep Alvarez MD [address] [facility] [place] [address] PCP - General Internal Medicine 03/07/16 Curriculum Director Relationship Specialty Start Date End Date Ramandeep Alvarez MD [address] [facility] [place] [address] PCP - General Internal Medicine 03/07/16 Curriculum Director Relationship Specialty Start Date End Date Ramandeep Alvarez MD [address] [facility] [place] [address] PCP - General Internal Medicine 03/07/16 Curriculum Director Relationship Specialty Start Date End Date Ramandeep Alvarez MD [address] [facility] [place] [address] PCP - General Internal Medicine 03/07/16 Curriculum Director Relationship Specialty Start Date End Date Ramandeep Alvarez MD [address] [place] [address] PCP - General Internal Medicine 03/07/16 Curriculum Director Relationship Specialty Start Date End Date Ramandeep Alvarez MD [address] [facility] [place] [address] PCP - General Internal Medicine 03/07/16 Curriculum Director Relationship Specialty Start Date End Date Ramandeep Alvarez MD [address] [facility] [place] [address] PCP - General Internal Medicine 03/07/16 Curriculum Director Relationship Specialty Start Date End Date Ramandeep Alvarez MD [address] [facility] [place] [address] PCP - General Internal Medicine 03/07/16 Curriculum Director Relationship Specialty Start Date End Date Ramandeep Alvarez MD [address] [facility] [place] [address] PCP - General Internal Medicine 03/07/16 Curriculum Director Relationship Specialty Start Date End Date Ramandeep Alvarez MD [address] [facility] [place] [address] PCP - General Internal Medicine 03/07/16 Curriculum Director Relationship Specialty Start Date End Date Ramandeep Alvarez MD [address] [facility] [place] [address] PCP - General Internal Medicine 03/07/16 Curriculum Director Relationship Specialty Start Date End Date Ramandeep Alvarez MD [address] [facility] [place] [address] PCP - General Internal Medicine 03/07/16 Curriculum Director Relationship Specialty Start Date End Date Ramandeep Alvarez MD [address] [facility] [place] [address] PCP - General Internal Medicine 03/07/16 Curriculum Director Relationship Specialty Start Date End Date Ramandeep Alvarez MD [address] [facility] [place] [address] PCP - General Internal Medicine 03/07/16 Curriculum Director Relationship Specialty Start Date End Date Ramandeep Alvarez MD [address] [facility] [place] [address] PCP - General Internal Medicine 03/07/16 Curriculum Director Relationship Specialty Start Date End Date Ramandeep Alvarez MD [address] [facility] [place] [address] PCP - General Internal Medicine 03/07/16 Curriculum Director Relationship Specialty Start Date End Date Ramandeep Alvarez MD [address] [place] [address] PCP - General Internal Medicine 03/07/16 Curriculum Director Relationship Specialty Start Date End Date Ramandeep Alvarez MD [address] [place] [address] PCP - General Internal Medicine 03/07/16 Curriculum Director Relationship Specialty Start Date End Date Ramandeep Alvarez MD [address] [place] [address] PCP - General Internal Medicine 03/07/16 Curriculum Director Relationship Specialty Start Date End Date Ramandeep Alvarez MD [address] [place] [address] PCP - General Internal Medicine 03/07/16 Curriculum Director Relationship Specialty Start Date End Date Ramandeep Alvarez MD [address] [place] [address] PCP - General Internal Medicine 03/07/16 Curriculum Director Relationship Specialty Start Date End Date Ramandeep Alvarez MD [address] [place] [address] PCP - General Internal Medicine 03/07/16 Curriculum Director Relationship Specialty Start Date End Date Ramandeep Alvarez MD [address] [place] [address] PCP - General Internal Medicine 03/07/16 Curriculum Director Relationship Specialty Start Date End Date Ramandeep Alvarez MD [address] [place] [address] PCP - General Internal Medicine 03/07/16 Curriculum Director Relationship Specialty Start Date End Date Ramandeep Alvarez MD [address] [place] [address] PCP - General Internal Medicine 03/07/16 Curriculum Director Relationship Specialty Start Date End Date Ramandeep Alvarez MD [address] [place] [address] PCP - General Internal Medicine 03/07/16 Curriculum Director Relationship Specialty Start Date End Date Ramandeep Alvarez MD [address] [place] [address] PCP - General Internal Medicine 03/07/16 Curriculum Director Relationship Specialty Start Date End Date Ramandeep Alvarez MD [address] [place] [address] PCP - General Internal Medicine 03/07/16 Curriculum Director Relationship Specialty Start Date End Date Ramandeep Alvarez MD [address] [place] [address] PCP - General Internal Medicine 03/07/16 Curriculum Director Relationship Specialty Start Date End Date Ramandeep Alvarez MD [address] [place] [address] PCP - General Internal Medicine 03/07/16 Kinjal Carlton PA-C [address] [place] [address] [facility] 03/03/24 Breanna Ortiz APRN.MACHINE MAINTENANCE SERVICER [address] [place] [address] [employer] [facility] Internal [facility] 03/03/24 Molly Rudolph PA-C [address] [place] [address] [facility] 03/03/24 Curriculum Director Relationship Specialty Start Date End Date Ramandeep Alvarez MD [address] [place] [address] PCP - General Internal Medicine 03/07/16 Kinjal Carlton PA-C [address] [place] [address] [facility] 03/03/24 Breanna Ortiz APRN.MACHINE MAINTENANCE SERVICER [address] [place] [address] [facility] Internal Medicine 03/03/24 Molly Rudolph PA-C [address] [place] [address] [facility] 03/03/24 Curriculum Director Relationship Specialty Start Date End Date Ramandeep Alvarez MD [address] [place] [address] PCP - General Internal Medicine 03/07/16 Breanna Ortiz APRN.MACHINE MAINTENANCE SERVICER [address] [place] [address] [facility] Internal Medicine 03/03/24 Curriculum Director Relationship Specialty Start Date End Date Ramandeep Alvarez MD [address] [place] [address] PCP - General Internal Medicine 03/07/16 Breanna Ortiz APRN.MACHINE MAINTENANCE SERVICER [address] [facility] [place] [address] [employer] Internal [facility] 03/03/24 Curriculum Director Relationship Specialty Start Date End Date Ramandeep Alvarez MD [address] [place] [address] PCP - General Internal Medicine 03/07/16 Breanna Ortiz APRN.MACHINE MAINTENANCE SERVICER [address] [place] [address] [employer] [facility] Internal Medicine 03/03/24 Curriculum Director Relationship Specialty Start Date End Date Ramandeep Alvarez MD [address] [facility] [place] [address] PCP - General Internal Medicine 03/07/16 Breanna Ortiz APRN.MACHINE MAINTENANCE SERVICER [address] [place] [address] [employer] [facility] Internal [facility] 03/03/24 Curriculum Director Relationship Specialty Start Date End Date Ramandeep Alvarez MD [address] [facility] [place] [address] PCP - General Internal Medicine 03/07/16 Breanna Ortiz APRN.MACHINE MAINTENANCE SERVICER [address] [place] [address] [employer] Internal Medicine 03/03/24 Curriculum Director Relationship Specialty Start Date End Date Ramandeep Alvarez MD [address] [place] [address] PCP - General Internal Medicine 03/07/16 Breanna Ortiz APRN.MACHINE MAINTENANCE SERVICER [address] [place] [address] [facility] 03/03/24 Curriculum Director Relationship Specialty Start Date End Date Ramandeep Alvarez MD [address] [place] [address] PCP - General Internal Medicine 03/07/16 Breanna Ortiz APRN.MACHINE MAINTENANCE SERVICER [address] [facility] [place] [address] [employer] [facility] Internal [facility] 03/03/24 Curriculum Director Relationship Specialty Start Date End Date Ramandeep Alvarez MD [address] [place] [address] PCP - General Internal Medicine 03/07/16 Breanna Ortiz APRN.MACHINE MAINTENANCE SERVICER [address] [place] [address] [employer] [facility] 03/03/24 Curriculum Director Relationship Specialty Start Date End Date Ramandeep Alvarez MD [address] [place] [address] PCP - General Internal Medicine 03/07/16 Kinjal Carlton PA-C [address] [place] [address] [facility] 03/03/24 06/16/24 Breanna Ortiz, CHARO.MACHINE MAINTENANCE SERVICER [address] [facility] [place], [place] [address] [facility] 03/03/24 Molly Rudolph PA-C [address] [place], [place] [address] [facility] 03/03/24 06/16/24 INFORMATION SOURCE (unrecogn ized section and content) DATE CREATED AUTHOR 07/30/2021 [facility] DATE CREATED AUTHOR AUTHOR'S ORGANIZ ATION 12/01/2021 [facility] DATE CREATED AUTHOR AUTHOR'S ORGANIZ ATION 11/09/2023 [facility] DATE CREATED AUTHOR AUTHOR'S ORGANIZ ATION 08/28/2024 [facility] Scheduled Active and Recently Administ ered [...] BE BASED ON THE PRIMARY CLINICAL RECORDS. [email or web address] [facility]. provides no warranty or guarantee of the accuracy or completeness of information in this document.
[2024-09-28] MEDS: Orphenadrine 60 MG/2 ML Ampul 30 MG IM ×2 (21:39→23:26)
--- NOTE | 2024-09-28 21:45 | RAD_ITS ---
PROCEDURE: HIP, UNI W/ PELVIS 2-3 VIEWS 09/28/2024 REASON FOR EXAM: PAIN TECHNIQUE: HIP, UNI W/ PELVIS 2-3 VIEWS COMPARISON: No FINDINGS: Lower lumbar spine degeneration. Intact pelvic ring. Severe bilateral hip osteoarthritis. Diffuse arterial calcifications. No acute bone or soft tissue pathology. RAD/HIP, UNI W/ Pelvis 2-3 Views IMPRESSION: Severe left hip osteoarthritis. Reading Location[facility]
--- NOTE | 2024-09-28 21:45 | RAD_ITS ---
PROCEDURE: L/S SPINE MIN 4 VIEWS 09/28/2024 REASON FOR EXAM: PAIN RADIATING DOWN L LEG TECHNIQUE: L/S SPINE MIN 4 VIEWS COMPARISON: No FINDINGS: Moderate S shaped scoliosis. Multilevel moderately severe disc space narrowing, endplate sclerosis, osteophyte formation, vacuum disc. Grade 1 anterolisthesis L4. Diffuse facet arthritis. No acute bone pathology. Large stool throughout the entire large bowel. Correlate for constipation. RAD/L/S Spine Min 4 Views IMPRESSION: Lumbar spine scoliosis and degeneration. Reading Location: [facility]
--- NOTE | 2024-09-28 21:45 | RAD_ITS ---
PROCEDURE: HIP, UNI W/ PELVIS 2-3 VIEWS 09/28/2024 REASON FOR EXAM: PAIN TECHNIQUE: HIP, UNI W/ PELVIS 2-3 VIEWS COMPARISON: No FINDINGS: Lower lumbar spine degeneration. Intact pelvic ring. Severe bilateral hip osteoarthritis. Diffuse arterial calcifications. No acute bone or soft tissue pathology. RAD/HIP, UNI W/ Pelvis 2-3 Views IMPRESSION: Severe left hip osteoarthritis. Reading Location[facility]
--- NOTE | 2024-09-28 21:45 | RAD_ITS ---
PROCEDURE: L/S SPINE MIN 4 VIEWS 09/28/2024 REASON FOR EXAM: PAIN RADIATING DOWN L LEG TECHNIQUE: L/S SPINE MIN 4 VIEWS COMPARISON: No FINDINGS: Moderate S shaped scoliosis. Multilevel moderately severe disc space narrowing, endplate sclerosis, osteophyte formation, vacuum disc. Grade 1 anterolisthesis L4. Diffuse facet arthritis. No acute bone pathology. Large stool throughout the entire large bowel. Correlate for constipation. RAD/L/S Spine Min 4 Views IMPRESSION: Lumbar spine scoliosis and degeneration. Reading Location[facility]
--- NOTE | 2024-09-28 23:18 | EDS_ITS ---
HPI History of Present Illness Chief Complaint: Lower Extremity Injury Narrative Narrative: Patient is a 88-year-old female past medical history of breast cancer, status post mastectomy who presents to the emergency department chief complaint of left pain in her leg. She states that the pain radiates from her back down into her foot. She states that she has not had any injuries or any falls. She states that she tried Tylenol at home this was not helping therefore she came here for further evaluation management. Patient states that she has been urinating normally for self and having normal bowel movements. Patient states that she has had chronic pain in this leg however states that recently she picked up her wheelchair and feels like this exacerbated her pain. [facility] Medical History History of breast cancer History of peripheral edema Home Medications ?Medication ?Instructions ?Recorded ?Last Taken ?Type amlodipine 2.5 mg tablet (Norvasc) 2.5 mg PO DAILY #10 tabs 11/24/21 Unknown Rx furosemide 20 mg tablet 20 mg PO QODAY 11/24/21 Unkn own History gabapentin 100 mg capsule 100 mg PO QHS 11/24/21 Unkno wn History nortriptyline 50 mg capsule 50 mg PO QHS 11/24/21 Unkn own History pravastatin 40 mg tablet 40 mg PO DAILY 11/24/21 Unkn own History anastrozole 1 mg tablet 1 mg PO DAILY 09/28/24 Unkno wn History aspirin 81 mg tablet 81 mg PO DAILY 09/28/24 Unkn own History cyclobenzaprine 5 mg tablet 5 mg PO TID PRN muscle spa sm #20 09/28/24 Unknown Rx tabs lidocaine 5 % topical patch 1 patch topical DAILY #15 ea 09/28/24 Unknown Rx ondansetron 4 mg disintegrating 4 mg PO Q6H PRN nausea and 09/28/24 Unknown Rx tablet vomiting #20 tabs oxycodone-acetaminophen 5 mg-325 1 tab PO Q6H PRN pain 3 days #12 09/28/24 Unknown Rx mg tablet (Endocet) tabs Allergy/AdvReac Type Severity Reaction Status Date / Time No Known Allergies Allergy Verified 09/28/24 20:34 Surgical History H/O mastectomy Hx of bilateral salpingo-oophorectomy Hx of appendectomy Hx of hysterectomy Social History Smoking Status: Never smoker ROS ROS ED ROS Narrative Constitutional: Denies fever, chills, headaches Eyes: Denies change in vision double vision blurry vision Cardiovascular: Denies chest pain Respiratory: Shortness of breath Abdomen: Denies abdominal pain nausea vomit diarrhea states that she is having normal bowel movements as noted above : Denies any urinary symptoms Neurological: Denies any numbness, tingling complains of shooting pain down her left leg as noted above Musculoskeletal: Complains of left back pain as noted above Skin: Denies any rashes or lesions EXAM Physical Exam Narrative Exam Narrative: General: Patient lying in bed rest comfortably did not appear to be uncomfortable secondary to her pain Head: Atraumatic, normocephalic Eyes: PERRL bilaterally, EOMI blood, no conjunctival injection noted Neck: Soft, supple, trachea midline Cardiovascular: Rhythm no murmurs gallops rubs noted Respiratory: There to auscultation bilaterally no rales rhonchi or wheezes noted Abdomen: Soft, nondistended, nontender to palpation Musculoskeletal: Patient has full range of motion of all joints without any pain elicited does have pain exacerbated with straight leg raise on the left side Extremities: DP pulses +2/4 in the bilateral lower extremities, +4/5 strength noted in the bilateral upper and lower extremities Neurological: Patient follow commands knew that she was at [facility] year is 2024 no saddle anesthesia noted Skin: Warm, dry, tact no rashes or lesions noted Const Vital Signs: 09/28/24 20:35 09/28/24 23:30 Temperature 98.6 F Temperature Source Oral Pulse Rate 82 81 Respiratory Rate 18 16 Blood Pressure 155/66 H 150/87 H Blood Pressure Mean 95 108 Pulse Ox 100 Oxygen Delivery Method Room Air MDM MDM MDM Narrative Medical decision making narrative: Patient is a 88-year-old female who presents to the emergency department chief complaint of back pain rating down her left leg states that this is chronic however has been exacerbated by what she thinks about picking up a wheelchair recently. States that she has not had any imaging of her back or hip recently therefore this will be obtained. On the differential diagnosis includes but limited to metastatic disease, pathological fracture, musculoskeletal strain. Once workup is obtained reviewed she will be reevaluated. Patient be given IM Norflex and Toradol. Patient's x-ray of her lumbar spine reviewed by myself by radiology showed lumbar spine scoliosis and degeneration. Patient's x-ray of her hip and pelvis reviewed by myself by radiology showed severe left hip osteoarthritis. On reevaluation the patient she states that she still having pain therefore she will be given [place], Zofran ODT and another dose of Norflex. On reevaluation the patient she is feeling much better she would like to go home at this point time. Patient was advised to use multimodal pain therapy such as rotate Tylenol and ibuprofen [id number]. She is advised to use muscle relaxers as well as the Zofran and Percocet as prescribed. She was also advised to use the muscle laxer as prescribed. She is advised to not operate anything under the influence of the narcotic or the muscle relaxer as it can make her sleepy drowsy. She is agreeable this plan all question concerns answered she was discharged home in stable condition. Radiography Diagnostic Testing: Clinical Impression(s) from Imaging Studies Hip/Pelvis X-Ray 09/28/24 21:45 IMPRESSION: Severe left hip osteoarthritis. Reading Location: [place] [address] Lumbar Spine X-Ray 09/28/24 21:45 IMPRESSION: Lumbar spine scoliosis and degeneration. Reading Location: [place] [address] Discharge Plan Triage Chief Complaint: Lower Extremity Injury ED Provider: Abel Marcus Dx/Rx/DC Orders Clinical Impression: Acute on chronic back pain Prescriptions: New cyclobenzaprine 5 mg tablet 5 mg PO TID PRN (Reason: muscle spasm) Qty: 20 0RF ondansetron 4 mg tablet,disintegrating 4 mg PO Q6H PRN (Reason: nausea and vomiting) Qty: 20 0RF oxycodone-acetaminophen [Endocet] 5-325 mg tablet 1 tab PO Q6H PRN (Reason: pain) 3 Days Qty: 12 0RF lidocaine 5 % adhesive patch,medicated 1 patch topical DAILY Qty: 15 0RF Rx Instructions: leave on most painful area for up to 12 hrs No Action pravastatin 40 mg tablet 40 mg PO DAILY Patient Comments: take 1 tablet by mouth at bedtime furosemide 20 mg tablet 20 mg PO QODAY Patient Comments: take 1 tablet by mouth every other day gabapentin 100 mg capsule 100 mg PO QHS Patient Comments: take 1 capsule by mouth at bedtime nortriptyline 50 mg capsule 50 mg PO QHS Patient Comments: take 1 capsule by mouth once daily at bedtime amlodipine [Norvasc] 2.5 mg tablet 2.5 mg PO DAILY Qty: 10 0RF anastrozole 1 mg tablet 1 mg PO DAILY aspirin 81 mg tablet 81 mg PO DAILY Primary Care Provider: Ramandeep Lucas Referrals: Ramandeep Lucas MD [Primary Care Provider] - Activity Restrictions/Additional Instructions: Follow-up with your doctor in the outpatient setting. Your x-rays did show evidence of arthritis. Rotate Tylenol and ibuprofen [id number] when you do this you can take something every 3 hours max dose of Tylenol in 24 hours 4000 mg max dose of ibuprofen in 24 hours 3200 mg. Use muscle relaxers as prescribed do not operate anything under the influence of this medication. Use the Endocet/Percocet and the Zofran ODT together as the narcotic can make you nauseous if you take it without the Zofran. Use this for severe pain. Do not operate anything under the influence of the narcotic or the muscle relaxer they can make you sleepy drowsy. Return with worsening symptoms or other concerns. Use Lidoderm patch as prescribed as well. Print Language: Faroese Disposition Disposition: Home, Self Care
[2024-09-28] MEDS: HYDROcodone Bitartrate/Apap 5/325 Tablet PO (23:26)
[2024-09-28 23:30] VITALS: BP 150/87; PULSE 81; RESP 16
[2024-09-28 23:56] VITALS: BP 141/74; PULSE 83; RESP 16; TEMP 37; O2SAT 100
== END 2024-09-28 23:57 | disposition home or self-care (01) ==
PROVIDERS: Emergency Provider Emergency Medicine; PCP Internal Medicine; Visit Provider Emergency Medicine
DX: M54.9 Dorsalgia, unspecified (principal); G89.29 Other chronic pain; Z79.82 Long term (current) use of aspirin; Z79.899 Other long term (current) drug therapy
CPT/HCPCS: 72110; 73502; 96372; 99282